=== PATIENT | male | born 1940 | race Caucasian/White ===

== ENCOUNTER 2019-07-27 11:01 | Outpatient (CLI) | payer OTHER, SELFPAY ==
--- NOTE | ~2019-07-27 | XR_ITS ---
XR lumbar spine 2-3V DATE: 07/27/2019 11:29 INDICATION: Low back pain radiating to both hips TECHNIQUE: AP, lateral and coned lateral lumbosacral views COMPARISON: None FINDINGS: There is mild levoscoliosis of the lumbar spine. Moderate osteopenia. There is degenerative change at the apophyseal joints particularly at L4-5 with associated minimal gr jenna 1 anterolisthesis at L4-5. 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 There is moderate degenerative disc disease of the lumbar spine, greatest at L1-L2. The sacroiliac joints are unremarkable. Prominent abdominal aortic calcification, without apparent aneurysm. IMPRESSION: Status post anterior and interbody spinal fusion at L5-S1 Degenerative change at the apophyseal joints and associated grade 1 anterolisthesis at L4-5 Multilevel moderate degenerative disc disease, greatest at L1-2 Reviewed, dictated and finalized at location A. IMPRESSION: Status post anterior and interbody spinal fusion at L5-S1 Degenerative change at the apophyseal joints and associated grade 1 anterolisth esis at L4-5 Multilevel moderate degenerative disc disease, greatest at L1-2
--- NOTE | ~2019-07-27 | XR_ITS ---
XR chest 2V DATE: 07/27/2019 11:28 INDICATION: Cough for one month TECHNIQUE: PA and lateral views COMPARISON: 09/02/2017 two-view chest FINDINGS: Normal heart size. Aortic calcification. No hilar or mediastinal enlargement. No pulmonary infiltrate or consolidation, pleural effusion or pulmonary vascular congestion or pneumo thorax. 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 IMPRESSION: No active cardiopulmonary disease or significant change since 09/02/2017 Reviewed, dictated and finalized at location A. IMPRESSION: No active cardiopulmonary disease or significant change since 2017
== END 2019-07-27 11:02 | disposition home or self-care (01) ==
PROVIDERS: PCP Internal Medicine; Visit Provider Internal Medicine
DX: J40 Bronchitis, not specified as acute or chronic (principal); M51.36 Other intervertebral disc degeneration, lumbar region; Z98.1 Arthrodesis status
CPT/HCPCS: 71046; 72100

== ENCOUNTER 2019-12-24 02:02 | Outpatient (CLI) | payer OTHER, SELFPAY ==
[2019-12-24 18:20] LABS: SARS-CoV-2 RNA PCR Negative
== END 2019-12-24 02:03 | disposition home or self-care (01) ==
LOC: ANHCOVIDDT 02:02
PROVIDERS: PCP Internal Medicine; Visit Provider Internal Medicine Gastroenterology
DX: Z01.812 Encounter for preprocedural laboratory examination (principal); Z11.59 Encounter for screening for other viral diseases
CPT/HCPCS: 87635; C9803; U0003

== ENCOUNTER 2019-12-26 02:21 | Day surgery (SDC) | payer OTHER, SELFPAY ==
[2019-12-19 12:43] VITALS: BMI 34.4
[2019-12-26 10:17] VITALS: BP 174/80; PULSE 103; RESP 18; TEMP 35.8; O2SAT 97; BMI 33.8
--- NOTE | 2019-12-26 10:23 | P.PNAN_ITS ---
Anes - Initial Pre Proc Eval Procedure: Operation Date: 12/26/19 10:45 Proposed Procedures p Screening Colonoscopy - Shady Dee MD Date/Time: 12/26/19 10:23 Surgeon: Shady Dee MD Pre Op Diagnosis: neoplasm screening Patient Data Age: 79 Gender: M Height: 5 ft 11 in Weight: 110.1 kg Last Vital Signs Temp 96.5 F L 12/26/19 10:17 Pulse 103 H 12/26/19 10:17 Resp 18 12/26/19 10:17 BP 174/80 H 12/26/19 10:17 Pulse Ox 97 12/26/19 10:17 Allergies Allergy/AdvReac Type Severity Reaction Status Date / Time No Known Allergies Allergy Verified 12/26/19 10:14 Home Medications Medication Instructions Recorded Confirmed Type metformin 1,000 mg tablet 1,000 mg PO BID #180 tablet 07/27/19 12/19/19 Rx finasteride 5 mg tablet 5 mg PO DAILY #90 tablet 09/27/19 12/20/19 Rx hydralazine 25 mg tablet 25 mg PO BID #180 tablet 09/27/19 12/20/19 Rx spironolactone 25 mg tablet See Rx Instructions .ROUTE 09/27/19 12/20/19 Rx .COMPLEX #90 tablet tamsulosin 0.4 mg capsule 0.4 mg PO DAILY #90 cap 09/27/19 12/20/19 Rx furosemide 40 mg tablet 40 mg PO BID #180 tablet 10/09/19 12/20/19 Rx losartan 100 mg tablet 100 mg PO DAILY #90 tablet 10/09/19 12/20/19 Rx pravastatin 40 mg tablet 40 mg PO DAILY #90 tablet 10/09/19 12/20/19 Rx albuterol sulfate 90 mcg/actuation 2 puff INHALATION Q4H PRN #8.5 gm 11/27/19 12/19/19 Rx aerosol inhaler fluticasone 250 mcg-salmeterol 50 1 inhalation INHALATION BID each 11/27/19 12/20/19 History mcg/dose blistr powdr for inhalation omega-3 fatty acids 1,000 mg 1,000 mg PO BID 11/27/19 12/20/19 History capsule aspirin [Aspir-81] 81 mg PO DAILY 12/19/19 12/19/19 History Patient hx anesthesia problems: none Family hx anesthesia problems: none [facility] Past Medical History Medical History (Updated 12/26/19 @ 10:20 by Rex Gao MD) Chronic obstructive pulmonary disease, unspecified Mixed hyperlipidemia ANEUDY (obstructive sleep apnea) Screening for colon cancer Type 2 diabetes mellitus with diabetic polyneuropathy Social History Social History Smoking status: Former smoker Smoking end date: 08/30/84 Alcohol intake: never Anes - Eval Final PreProcedure Day of Procedure 12/26/19 10:23 Patient weight: obese Heart: regular rate and rhythm Lungs: clear to auscultation Airway: Mallampati scale class II Neurological: alert and oriented Last oral intake: >/= 8 hours ASA classification: III Emergent: no Anesthetic plan: proceed Anesthesia type and monitoring: general GIVS and standard monitoring Informed Consent: The patient's anesthetic plan and its attendant risks and benefits were discussed with the patient/family/POA. Questions were solicited and answers provided to the satisfaction of the patient/family/POA.
[2019-12-26 10:31] LABS: Glucose Point of Care 129 (65-105)
[2019-12-26] MEDS: LACTATED RINGERS 1,000 ML 150 ML IV CONT (10:32)
--- NOTE | 2019-12-26 10:52 | PM.HPGS ---
History of Present Illness History of Present Illness Consent: Risks, benefits, and alternatives have been discussed and questions answered. Patient agrees to proceed with procedure. Chief complaint: neoplasm screening Narrative: Christian Villa is a 79 year old male here for screening colonoscopy, last one more than 10 years ago. Review of Systems Constitutional: Constitutional: Denies headache(s) and Denies weakness Eyes: Eyes: Denies blurry vision ENT: Reports Normal hearing present, Denies headache(s) and Denies neck pain Cardiovascular: Cardiovascular: Denies chest pain and Denies dyspnea Respiratory: Respiratory: Denies dyspnea Gastrointestinal: Gastrointestinal: Reports no additional gastrointestinal complaints Genitourinary: Genitourinary: Denies dysuria Musculoskeletal: Musculoskeletal: Denies neck pain Integumentary/Breasts: Skin/Breast: Denies dry skin Neurologic: Reports Normal hearing present, Denies headache(s) and Denies weakness Psychiatric: Psychiatric: Denies anxiety Endocrine: Endocrine: Denies change in body appearance Hematologic/Lymphatic: Hematologic/Lymphatic: Denies easy bleeding Allergic/Immunologic: Allergic/Immunologic: Denies urticaria PMFSH Past Medical History Medical History (Updated 12/26/19 @ 10:20 by Rex Gao MD) Chronic obstructive pulmonary disease, unspecified Mixed hyperlipidemia ANEUDY (obstructive sleep apnea) Screening for colon cancer Type 2 diabetes mellitus with diabetic polyneuropathy Social History Social History Smoking status: Former smoker Smoking end date: 08/30/84 Alcohol intake: never Meds Home Medications and Allergies Home Medications Medication Instructions Recorded Confirmed Type metformin 1,000 mg tablet 1,000 mg PO BID #180 tablet 07/27/19 12/19/19 Rx finasteride 5 mg tablet 5 mg PO DAILY #90 tablet 09/27/19 12/20/19 Rx hydralazine 25 mg tablet 25 mg PO BID #180 tablet 09/27/19 12/20/19 Rx spironolactone 25 mg tablet See Rx Instructions .ROUTE 09/27/19 12/20/19 Rx .COMPLEX #90 tablet tamsulosin 0.4 mg capsule 0.4 mg PO DAILY #90 cap 09/27/19 12/20/19 Rx furosemide 40 mg tablet 40 mg PO BID #180 tablet 10/09/19 12/20/19 Rx losartan 100 mg tablet 100 mg PO DAILY #90 tablet 10/09/19 12/20/19 Rx pravastatin 40 mg tablet 40 mg PO DAILY #90 tablet 10/09/19 12/20/19 Rx albuterol sulfate 90 mcg/actuation 2 puff INHALATION Q4H PRN #8.5 gm 11/27/19 12/19/19 Rx aerosol inhaler fluticasone 250 mcg-salmeterol 50 1 inhalation INHALATION BID each 11/27/19 12/20/19 History mcg/dose blistr powdr for inhalation omega-3 fatty acids 1,000 mg 1,000 mg PO BID 11/27/19 12/20/19 History capsule aspirin [Aspir-81] 81 mg PO DAILY 12/19/19 12/19/19 History Allergies Allergy/AdvReac Type Severity Reaction Status Date / Time No Known Allergies Allergy Verified 12/26/19 10:14 Vital Signs Vital Signs - 24 hr 12/26/19 10:17 Temperature 96.5 F L Pulse Rate 103 H Respiratory Rate 18 Blood Pressure 174/80 H Pulse Oximetry 97 Exam Const: General: comfortable and no acute distress HENMT: General nose exam: Normal nares present Eyes: General: appearance normal, both eyes and all related structures Neck: Neck: no JVD Resp: Auscultation: clear to auscultation bilaterally Cardio: Rate: regular rate Rhythm: regular rhythm GI: Inspection: non-distended GI Palp: Yes Soft to palpation Skin: General skin exam: normal color Neuro: General: gait normal Speech: normal speech Extrem: General: normal to inspection Psych: Mental Status: mental status grossly normal Assessment and Plan Assessment and plan (1) Screening for colon cancer: Code(s): Z12.11 - Encounter for screening for malignant neoplasm of colon Status: Acute Assessment and Plan: will proceed with colonoscopy (2) Essential hypertension: Code(s): I10 - Essenti
[2019-12-26 11:46] VITALS: BP 94/55; PULSE 75; RESP 20; O2SAT 97
[2019-12-26 11:56] VITALS: BP 106/53; PULSE 72; RESP 22; O2SAT 96
[2019-12-26 12:06] VITALS: BP 119/68; PULSE 68; RESP 18; O2SAT 99
[2019-12-26 12:09] LABS: Glucose Point of Care 128 (65-105)
== END 2019-12-26 12:21 | disposition home or self-care (01) ==
PROVIDERS: PCP Internal Medicine; Visit Provider Internal Medicine Gastroenterology
PROC: 0DJD8ZZ Inspection of Lower Intestinal Tract, Via Natural or Artificial Opening Endoscopic (ICD-10-PCS; CPT 45378; principal; 2019-12-26 10:45)
DX: Z12.11 Encounter for screening for malignant neoplasm of colon (principal); K57.30 Diverticulosis of large intestine without perforation or abscess without bleeding; K64.8 Other hemorrhoids; E11.42 Type 2 diabetes mellitus with diabetic polyneuropathy; J44.9 Chronic obstructive pulmonary disease, unspecified; I10 Essential (primary) hypertension; E78.2 Mixed hyperlipidemia; G47.33 Obstructive sleep apnea (adult) (pediatric); Z87.891 Personal history of nicotine dependence; Z79.84 Long term (current) use of oral hypoglycemic drugs; Z79.82 Long term (current) use of aspirin
CPT/HCPCS: G0121; J2704; J7120

== ENCOUNTER 2020-03-03 16:43 | Emergency (ER) | payer OTHER, SELFPAY ==
--- NOTE | ~2020-03-03 | XR_ITS ---
EXAMINATION: XR chest 2V EXAM DATE: 03/03/2020 16:59 INDICATION: COUGH;afebrile, hx of COPD, HTN, prev smoker TECHNIQUE: Frontal and lateral projections of the chest obtained and reviewed. 07/27/2019. FINDINGS: Small amount of left basilar linear opacity most likely subsegmental atelectasis. The lung s are otherwise clear. There are no pleural effusions. The cardiomediastinal silhouette is within n ormal limits. There is no pneumothorax suspected. The bones and soft tissues are unremarkable. IMPRESSION: Left basilar subsegmental opacity probably atelectasis. Reviewed, dictated and finalized at location A.
--- NOTE | 2020-03-03 16:47 | ED.URI ---
HPI - URI/Sore Throat General Chief Complaint: Shortness of Breath/Dyspnea Stated Complaint: difficulty breathing Time Seen by Provider: 03/03/20 16:47 Source: patient and RN notes reviewed History of Present Illness HPI Narrative: Patient is a 79-year-old male who presents the urgent care with complaints of 2-day history of nonproductive cough and shortness of breath. Patient does report a history of COPD but denies of any recent history of pneumonia. 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 Patient states that he has been needing the inhaler more frequently. Denies any use of nebulizers or at home oxygen. Denies of any fever, nausea, vomiting, chest pain. Patient states he is used a home remedy concoction for the cough which seems to help . Otherwise, no other use of [id number] medication. No other acute complaints. No acute distress noted. Patient aware of the plan of care. Some parts of this dictation were generated by voice recognition software and may contain typographical and/or grammatical inaccuracies. Related Data Home Medications Medication Instructions Recorded Confirmed fluticasone 250 mcg-salmeterol 50 1 inhalation INHALATION BID each 11/27/19 12/20/19 mcg/dose blistr powdr for inhalation omega-3 fatty acids 1,000 mg 1,000 mg PO BID 11/27/19 12/20/19 capsule aspirin [Aspir-81] 81 mg PO DAILY 12/19/19 12/19/19 Allergies Allergy/AdvReac Type Severity Reaction Status Date / Time No Known Allergies Allergy Verified 12/26/19 10:14 Review of Systems Review of Systems: Narrative: CONSTITUTIONAL: Denies fever, chills, or sweats. EYES: Denies visual changes, redness, or discharge. ENT: Denies rhinorrhea, congestion, sore throat, or otalgia. CARDIOVASCULAR: Denies chest pain, palpitations, or edema. RESPIRATORY: Reports of nonproductive cough with dyspnea GASTROINTESTINAL: Denies abdominal pain, nausea, vomiting, or diarrhea. GENITOURINARY: Denies dysuria or hematuria. SKIN: Denies rash or itching. MUSCULOSKELETAL: Denies back pain, joint pain, or myalgia. NEUROLOGIC: Denies headache, numbness, or weakness. All other systems reviewed are negative, except as documented in HPI. [facility] Past Medical History Medical History (Updated 10/19/20 @ 17:10 by DYLAN Ballard) Chronic obstructive pulmonary disease, unspecified Mixed hyperlipidemia ANEUDY (obstructive sleep apnea) Screening for colon cancer Type 2 diabetes mellitus with diabetic polyneuropathy Family History Family History Sibling Patient's sister is in good health Patient's brother is in good health Father Family history of heart disease in male family member before age 55 Mother Family history of heart disease in male family member before age 55 Acute myocardial infarction Social History Social History Smoking status: Former smoker Smoking end date: 08/30/84 Alcohol intake: never Comments At the time of my signature, I reviewed and agree with the nursing past medical, surgical, social, and family history. There is no relevant family history pertinent to the patient complaint. Exam Narrative: Exam Narrative: GENERAL: This is a well-nourished, well-developed patient, in no apparent distress. HEAD: normocephalic, atraumatic. EYES: PERRL. Sclera clear/white. Vision is grossly intact. Bilateral surrounding irritation and erythema with clear drainage EARS: External ears normal, auditory canals clear and without drainage, TMs normal without perforation. Hearing grossly intact. NOSE: External nose normal with no obvious nasal discharge, bilateral erythemic nares with clear rhinorrhea. THROAT: Mucous membranes moist, posterior pharynx clear. NECK: Neck supple CARDIOVASCULAR: Regular rate and rhythm RESPIRATORY: Coarse lung sounds bibasilar with expiratory wheezes to lower r
[2020-03-03 16:48] VITALS: BP 178/83; PULSE 111; RESP 18; TEMP 37; O2SAT 94
[2020-03-03 16:56] VITALS: PULSE 111; RESP 18; O2SAT 94
== END 2020-03-03 17:23 | disposition home or self-care (01) ==
PROVIDERS: Emergency Provider Nurse Practitioner Family; PCP Internal Medicine
DX: R91.8 Other nonspecific abnormal finding of lung field (principal); J44.9 Chronic obstructive pulmonary disease, unspecified; Z87.891 Personal history of nicotine dependence; E78.2 Mixed hyperlipidemia; G47.33 Obstructive sleep apnea (adult) (pediatric); E11.42 Type 2 diabetes mellitus with diabetic polyneuropathy; Z79.82 Long term (current) use of aspirin
CPT/HCPCS: 71046; 99213; G0463

== ENCOUNTER 2020-05-07 08:01 | Emergency (ER) | payer OTHER, SELFPAY ==
[2020-05-07 08:09] VITALS: BP 155/88; PULSE 101; RESP 20; TEMP 36.3; O2SAT 98
--- NOTE | 2020-05-07 08:22 | ED.SKABFB ---
HPI - Skin/Abscess/Foreign Bdy General Chief complaint: Skin/Abscess/Foreign Body Stated complaint: RASH Time Seen by Provider: 05/07/20 08:12 Source: patient and RN notes reviewed Mode of arrival: ambulatory Limitations: no limitations History of Present Illness HPI narrative: Patient presents today complaining of pain to the left mid back radiating to the left flank and mid chest x1 week. Patient's noted a few days ago that there was a rash to the affected area. States pain continues to worsen. Currently rates pain 5/10. Patient takes Tylenol arthritis twice daily and states that this pain is not being relieved with his normal pain medication. He has not had a shingles vaccine. Denies numbness or tingling in the extremities. States sleeping on his left side aggravates the pain. MD complaint: rash Related Data Home Medications Medication Instructions Recorded Confirmed aspirin [Aspir-81] 81 mg PO DAILY 12/19/19 05/07/20 fluticasone propion-salmeterol 1 inh INHALATION BID 05/07/20 05/07/20 [Wixela Inhub] metformin 500 mg PO BID 05/07/20 05/07/20 spironolactone 12.5 mg PO DAILY 05/07/20 05/07/20 Allergies Allergy/AdvReac Type Severity Reaction Status Date / Time No Known Allergies Allergy Verified 05/07/20 08:14 Review of Systems Review of Systems: Narrative: CONSTITUTIONAL: Denies body aches, fever, chills, or sweats. EYES: Denies visual changes, redness, or discharge. ENT: Denies rhinorrhea, congestion, sore throat, or otalgia. CARDIOVASCULAR: Denies chest pain, palpitations, or edema. RESPIRATORY: Denies cough or dyspnea. GASTROINTESTINAL: Denies abdominal pain, nausea, vomiting, or diarrhea. GENITOURINARY: Denies dysuria or hematuria. SKIN: Denies itching, or wounds. + Left mid back pain and rash MUSCULOSKELETAL: Denies back pain, joint pain, or myalgia. NEUROLOGIC: Denies headache, numbness, tingling, or weakness. PSYCH: Denies depression or anxiety. [facility] Past Medical History Medical History Chronic obstructive pulmonary disease, unspecified Mixed hyperlipidemia ANEUDY (obstructive sleep apnea) Screening for colon cancer Type 2 diabetes mellitus with diabetic polyneuropathy Family History Family History Sibling Patient's sister is in good health Patient's brother is in good health Father Family history of heart disease in male family member before age 55 Mother Family history of heart disease in male family member before age 55 Acute myocardial infarction Social History Social History Smoking status: Former smoker Smoking end date: 08/30/84 Alcohol intake: never Comments At time of signature, I have reviewed and agree with nursing past medical, surgical, social and family history unless otherwise noted. Please see nursing chart for further information. There is no relevant family history pertinent to the presenting complaint Exam Narrative: Exam Narrative: GENERAL: Well-appearing, well-nourished, and in no acute distress. HEAD: Normocephalic, atraumatic. EYES: EOMI. No redness or drainage. Conjunctivae normal. ENT: Mucous membranes pink and moist. NECK: Normal AROM. CHEST: No respiratory distress. EXTREMITIES: Normal range of motion. No edema. SKIN: Warm, dry. Capillary refill normal. Normal skin turgor. Erythematous vesicular rash starting in the left upper thoracic area following a dermatomal pattern around the left flank, ending in the left sternal border. Tender to palpation. Few ruptured vesicles to the left sternal border. No signs of secondary bacterial infection. NEURO: No focal deficits. Alert and oriented x3. Gait steady. PSYCH: Normal affect. No signs of depression or anxiety. Course Vital Signs Vital signs: Vital Signs Temperature 97.4 F L 05/07/20 08:09 Pulse Rate 101 H
== END 2020-05-07 08:30 | disposition home or self-care (01) ==
PROVIDERS: Emergency Provider Nurse Practitioner; PCP Internal Medicine
DX: B02.9 Zoster without complications (principal); J44.9 Chronic obstructive pulmonary disease, unspecified; G47.33 Obstructive sleep apnea (adult) (pediatric); E78.2 Mixed hyperlipidemia; E11.42 Type 2 diabetes mellitus with diabetic polyneuropathy; Z87.891 Personal history of nicotine dependence; Z79.84 Long term (current) use of oral hypoglycemic drugs; Z79.82 Long term (current) use of aspirin
CPT/HCPCS: 99213; G0463

== ENCOUNTER 2020-05-29 08:48 | Outpatient (CLI) | payer OTHER, SELFPAY ==
--- NOTE | ~2020-05-29 | XR_ITS ---
EXAMINATION: XR chest 2V DATE: 05/29/2020 09:14 INDICATION: Cough TECHNIQUE: PA and lateral views of the chest are obtained. COMPARISON: 03/03/2020 FINDINGS: The lungs are free of acute opacities. There is no pleural effusion or pneumothorax. The ca rdiomediastinal silhouette is normal. There are bridging osteophytes at multiple levels in the spine, consistent with diffuse idiopathic skeletal hyperostosis (DISH). Thoracolumbar levocurvature is note d. IMPRESSION: 1. No acute cardiopulmonary abnormality. Reviewed, dictated and finalized at location A. PT READER
== END 2020-05-29 08:49 | disposition home or self-care (01) ==
PROVIDERS: PCP Internal Medicine; Visit Provider Nurse Practitioner
DX: R05 Cough (principal); J44.9 Chronic obstructive pulmonary disease, unspecified; I10 Essential (primary) hypertension
CPT/HCPCS: 71046

== ENCOUNTER 2020-06-05 11:45 | Outpatient (NON) | payer OTHER, SELFPAY ==
[2020-06-05 21:44] LABS: SARS-CoV-2 RNA PCR Positive
== END 2020-06-05 11:46 ==
LOC: ANHCOVIDDT 11:46
PROVIDERS: Family Provider Internal Medicine; PCP Internal Medicine; Visit Provider Internal Medicine
DX: U07.1 COVID-19 (principal)
CPT/HCPCS: C9803; U0003; U0005

== ENCOUNTER 2020-06-10 15:39 | Inpatient (IN) | payer OTHER, SELFPAY ==
[2020-06-10] VITALS (12 sets, daily range): BP systolic 119–165; BP diastolic 61–85; PULSE 74–93; RESP 18–28; TEMP 36.2–37.7; O2SAT 89–97; BMI 32.1
--- NOTE | ~2020-06-10 | XR_ITS ---
XR chest 1V portable DATE: 06/19/2020 05:36 INDICATION: Pneumonia TECHNIQUE: Portable AP chest on June 19, 2020 at 0518 hours COMPARISON: 06/13/2020 portable AP chest at 0745 hours FINDINGS: There are patchy bilateral pulmonary infiltrates involving the mid and lower lung zones funmilayo adam, greater on the left, consistent with bilateral pneumonia. There are small pleural effusions are suggested. No pulmonary vascular congestion or pneumothorax. Heart size appears normal. There is aortic calcification. Thoracic spine scoliosis and degenerative spurring. Diffuse osteopenia. IMPRESSION: Patchy bilateral pulmonary infiltrates consistent with diagnosis of pneumonia; infiltrate s are substantially increased since 06/13/2020 Reviewed, dictated and finalized at location A. SCALE MAN IMPRESSION: Patchy bilateral pulmonary infiltrates consistent with diagnosis of pneumonia; infiltrates are substantially increased since 06/13/2020
--- NOTE | ~2020-06-10 | XR_ITS ---
EXAMINATION: XR chest 1V DATE: 06/10/2020 16:44 INDICATION: COVID positive. COPD. Shortness of breath. TECHNIQUE: frontal view of the chest was obtained. COMPARISON: Chest radiograph dated 05/29/2020 FINDINGS: Interval increase in opacities in the left lower lung zone and along the right lung base. No pleural effusion or pneumothorax. Mild eventration along the right hemidiaphragm. The cardiomediastinal silho uette is normal. Mild lower thoracic dextrocurvature. IMPRESSION: 1. New opacities in the left lower lung zone and along the right lung base which could represent atel ectasis and/or pneumonia. Reviewed, dictated and finalized at location B. ENER IMPRESSION: 1. New opacities in the left lower lung zone and along the right lung base whic h could represent atelectasis and/or pneumonia.
--- NOTE | ~2020-06-10 | CT_ITS ---
EXAMINATION:CT diagnostic chest wo con DATE: 06/26/2020 09:01 INDICATION: COVID-19 pneumonia. Hypoxia. TECHNIQUE: Computed tomography (CT) of the chest was performed without intravenous contrast. Automate d exposure control and iterative reconstruction technique were employed. The dose-length product (DLP ) was 430.06 mGy-cm. COMPARISON: Chest single view 06/13/2020, 06/25/2020 FINDINGS: There are patchy airspace and groundglass opacities with air bronchograms involving all lob es. A calcified right lung nodule and calcified right hilar lymph nodes are consistent with old granu lomatous disease. There is septal thickening in the inferior lungs with a peripheral predominance. Th ere are small pleural effusions. The heart size is normal. There are coronary artery calcifications. No pericardial effusion. Calcifications in the spleen are consistent with old granulomatous disease. There is bilateral gynecomastia. There are bridging endplate osteophytes at multiple levels in the sp ine, consistent with diffuse idiopathic skeletal hyperostosis (DISH). IMPRESSION: 1. Multifocal pneumonia. 2. Septal thickening in the inferior lungs, consistent with mild pulmonary edema versus chronic inter stitial lung disease. 3. Small pleural effusions. Reviewed, dictated and finalized at location A. R COM SERVICER IMPRESSION: 1. Multifocal pneumonia. 2. Septal thickening in the inferior lungs, consistent with mild pulmonary katia a versus chronic interstitial lung disease. 3. Small pleural effusions.
--- NOTE | ~2020-06-10 | XR_ITS ---
EXAMINATION: XR chest 1V portable DATE: 06/21/2020 14:03 INDICATION: Acute respiratory failure. COVID-19 pneumonia. TECHNIQUE: A single frontal view of the chest was obtained. COMPARISON: Chest single view 06/19/20 FINDINGS: There are patchy airspace opacities in right mid and lower lung zones and all left lung zon es. No pleural effusion or pneumothorax. The heart size is normal. IMPRESSION: 1. Diffuse lung disease with slight worsening, consistent with pneumonia. Reviewed, dictated and finalized at location A. INE CUTTER
--- NOTE | ~2020-06-10 | XR_ITS ---
EXAMINATION: XR chest 1V portable EXAM DATE: 06/13/2020 08:02 INDICATION: Shortness of breath. COVID pneumonia. TECHNIQUE: Portable AP frontal chest x-ray was obtained. Comparison is made to prior examination from 06/10/2020. FINDINGS: There is moderate amount of left basilar, smaller amount of right basilar ill-defined airsp yarelis disease, pneumonia and/or edema. Mild hyperinflation. No pneumothorax or pleural effusion. The ca rdiomediastinal silhouette is prominent but magnified on this AP technique. Cardiac silhouette is sta ble in size compared to prior exam. There are bony degenerative changes. Mild interval progression in left basilar airspace disease compared to 06/10. IMPRESSION: Moderate left, smaller right basilar infection and/or edema. Reviewed, dictated and finalized at location A. NCIAL QUANTITATIVE ANALYST
--- NOTE | ~2020-06-10 | XR_ITS ---
EXAMINATION: XR chest 1V portable DATE: 06/25/2020 05:48 INDICATION: Shortness of breath. COVID-19 pneumonia. TECHNIQUE: A single frontal view of the chest was obtained. COMPARISON: Chest single view FINDINGS: There are patchy airspace opacities in all lung zones bilaterally with relative sparing of the lung apices. No pleural effusion or pneumothorax. The heart size is normal. IMPRESSION: 1. Worsened diffuse lung disease, consistent with COVID-19 pneumonia. Reviewed, dictated and finalized at location A. RETE CRAFTSMAN
--- NOTE | 2020-06-10 16:15 | ECG_ITS ---
Measurements Intervals [place] Rate: 92 P: 13 UT: 192 QRS: -46 QRSD: 97 T: 35 QT: 338 QTc: 419 Interpretive Statements SINUS RHYTHM LEFT ANTERIOR FASCICULAR BLOCK BASELINE ARTIFACT- I, III, AVR, AVL, AVF, V2 ABNORMAL ECG Electronically Signed On 06-10-2020 19:20:36 [employer]ENT FIN[employer] by Colby Noonan D.O.
[2020-06-10 16:40] LABS: Basophils Percent Auto 0.1 % (0.2-1.2); Eosinophils Percent Auto 0.1 % (0-4.4); Hematocrit 41.8 % (42.0-52.0); Hemoglobin 13.3 g/dL (14.0-18.0); Immature Granulocyte Absolute 0.08 K/mm3 (0.00-0.031); Immature Granulocyte Percent A 0.7 % (0-0.5); Lymphocytes Percent Auto 29.1 % (18.3-44.2); Mean Corpuscular HGB Conc 31.8 g/dl (32-36); Mean Corpuscular Hemoglobin 31.4 pg (26-34); Mean Corpuscular Volume 98.8 fl (80-100); Mean Platelet Volume 9.3 fl (7.4-10.4); Monocytes Absolute Auto 0.5 K/mm3 (0.1-0.6); Monocytes Percent Auto 4.8 % (2.6-8.5); Neutrophils Absolute Auto 7.4 K/mm3 (1.3-6.7); Neutrophils Percent Auto 65.2 % (45.5-73.1); Platelet Count Result 248 k/mm3 (150-375); Red Blood Count 4.23 M/mm3 (4.6-6.20); Red Cell Distribution Width 14.6 % (11.5-14.5); White Blood Count 11.3 K/mm3 (4.5-10.0)
--- NOTE | 2020-06-10 16:49 | ED.GENADULT ---
HPI - General Adult General Chief complaint: Shortness of Breath/Dyspnea Stated complaint: covid +, weakness Time Seen by Provider: 06/10/20 15:50 Source: patient Limitations: no limitations History of Present Illness HPI narrative: 79-year-old male History of COPD, does not use home O2, usually pretty well controlled on a twice daily inhaler plus as needed albuterol Complains of increased shortness of breath for about a week A couple days after his symptoms began he did test positive for Covid He reports today, 5 days after his positive test, complaining of continued shortness of breath, fatigue, severe muscle aches, and a stomachache. In general those of all gotten a little bit worse in the interim Related Data Home Medications Medication Instructions Recorded Confirmed aspirin [Aspir-81] 81 mg PO DAILY 12/19/19 05/29/20 metformin 500 mg PO BID 05/07/20 05/29/20 spironolactone 12.5 mg PO DAILY 05/07/20 05/29/20 omega-3 fatty acids 1,000 mg 1,000 mg PO BID 05/29/20 05/29/20 capsule Allergies Allergy/AdvReac Type Severity Reaction Status Date / Time No Known Allergies Allergy Verified 06/10/20 15:57 Review of Systems Review of Systems: All systems reviewed & are unremarkable except as noted in HPI and below Constitutional: Constitutional: Reports chills, Reports fatigue, Reports fever(s), Denies headache(s) and Reports weakness Eyes: Eyes: Reports no additional eye complaints and Denies change in vision ENT: Denies headache(s), Denies epistaxis, Denies nasal congestion and Denies sore throat Cardiovascular: Cardiovascular: Denies chest pain, Denies leg edema, Denies palpitations and Denies dyspnea Respiratory: Respiratory: Reports cough, Reports dyspnea and Reports wheezing Gastrointestinal: Gastrointestinal: Reports abdominal pain, Denies diarrhea, Reports nausea and Denies vomiting Genitourinary: Genitourinary: Denies hematuria, Denies dysuria and Denies urinary frequency Musculoskeletal: Musculoskeletal: Reports myalgias, Denies deformity, Reports arthralgias, Denies joint swelling, Denies muscle weakness and Denies numbness Integumentary/Breasts: Skin/Breast: Denies rash and Denies wounds Neurologic: Denies headache(s), Denies focal weakness, Denies numbness and Denies weakness Psychiatric: Psychiatric: Reports no additional psychiatric complaints Endocrine: Endocrine: Denies fatigue and Denies palpitations Hematologic/Lymphatic: Hematologic/Lymphatic: Denies easy bleeding and Denies easy bruising Allergic/Immunologic: Allergic/Immunologic: Denies wheezing PMFSH Past Medical History Medical History Chronic kidney disease, stage 3 Chronic obstructive pulmonary disease, unspecified Hyperlipidemia Mixed hyperlipidemia ANEUDY (obstructive sleep apnea) Screening for colon cancer Type 2 diabetes mellitus with diabetic polyneuropathy Surgical History Surgical History History of back surgery History of cataract surgery Family History Family History Sibling Patient's sister is in good health Patient's brother is in good health Father Family history of heart disease in male family member before age 55 Mother Family history of heart disease in male family member before age 55 Acute myocardial infarction Social History Social History Smoking status: Former smoker Smoking end date: 08/30/84 Alcohol intake: never Gender identity (if verbalized by the patient): Male Exam Const: General: no acute distress, well developed, alert and awake Nutritional Appearance: well nourished Orientation/consciousness: patient oriented x3 (alert) Limitations: no limitations HENMT: Head: normocephalic and atraumatic Ears: external ears normal General nose exam: No nasal
[2020-06-10 16:53] LABS: Anion Gap 9 mmol/L (8-16); Blood Urea Nitrogen 36 mg/dL (9-20); Calcium 8.6 mg/dL (8.4-10.2); Carbon Dioxide 23 mmol/L (22-30); Chloride 104 mmol/L (98-107); Estimated CRCL calculation 51 ml/min; Estimated Glomerular Filt Rate 53; Glucose 117 mg/dL (75-110); Potassium 4.9 mmol/L (3.4-5.0); Sodium 136 mmol/L (137-145)
[2020-06-10 16:54] LABS: Lactic Acid Reflex 1.2 mmol/L (0.7-2.1)
[2020-06-10 17:04] LABS: Alanine Aminotransferase 136 U/L (4-50); Albumin Level 3.6 g/dL (3.5-5.1); Alkaline Phosphatase 40 U/L (38-126); Aspartate Amino Transferase 100 U/L (17-59); Bilirubin,Total 0.4 mg/dL (0.2-1.3); CRP 7.1 mg/dL (<1.0); Lactate Dehydrogenase 704 U/L (313-618)
[2020-06-10] MEDS: ALBUTEROL SULFATE (*SP) AEROSOL 1 PUFF 6 PUFF INHALATION (17:07)
[2020-06-10] MEDS: ENOXAPARIN 100 MG/ML SYRINGE SUB-Q (17:11)
--- NOTE | 2020-06-10 17:11 | PC.NURSE ---
Meds given as ordered. RT at bedside for inhaler.
[2020-06-10 17:21] LABS: Alveolar/Arterial O2 Gradient 58.9 mmHg; Base Excess ABG -4.6 mEq/l (+/-2.0); Fractional Inspired Oxygen 21 %; HCO3 ABG 18.1 mEq/l (22.0-26.0); Oxygen Content ABG 16.7 %vol (16.0-22.0); Oxygen Saturation ABG 91.9 % (95.0-100.0); Oxyhemoglobin 89.9 % THb (90.0-100.0); PO2 ABG 58.5 mmHg (80.0-100.0); PO2 FiO2 Ratio Arterial Blood 2.79 %; Total Hemoglobin 13.2 g/dL (12.0-18.0); pH ABG 7.443 (7.350-7.450)
[2020-06-10 17:23] LABS: Device ROOM AIR; Modified Allen's Test Pass; Site Drawn RIGHT RADIAL
--- NOTE | 2020-06-10 17:51 | PC.NURSE ---
Per Anant in Lab, d-dimer will get it started
[2020-06-10 18:07] LABS: D Dimer 0.71 ug/mL (<0.48)
[2020-06-10] MEDS: ACETAMINOPHEN 500 MG TABLET 1000 MG PO (18:22)
[2020-06-10] MEDS: SODIUM CHLORIDE 0.9% IV 1,000 ML 50 ML IV CONT (18:58)
--- NOTE | 2020-06-10 18:58 | PC.NURSE ---
Note pt has increased wheezing that seems to clear with coughing. Pt appears to be swallowing but continues to say the cough is nonproductive. Appears to be feeling better but denies relief of generalized pain. Dr. Salguero made aware.
--- NOTE | 2020-06-10 19:30 | PC.NURSE ---
Report to FRANCOISE Caballero, to continue care.
--- NOTE | 2020-06-10 20:25 | ADMGEN ---
This patient, Christian Villa, was admitted to [facility] Room 325-01. Patient/family oriented to hospital policies and general routines including ID bracelet, bed and alarms, visiting hours, pain management, procedures, bathroom and other care routines, personal items, smoking policy, room service/diet, and visiting hours. Information on how to activate the Rapid Response Team has been discussed. Patient/Family are encouraged to report perceived risks to care and to ask questions if they do not understand what they are told or what they should do.
[2020-06-10] MEDS: DOXYCYCLINE HYCLATE 100 MG TABLET PO (20:49)
[2020-06-11 04:00] VITALS: BP 122/61; PULSE 65; RESP 18; TEMP 36.4; O2SAT 94
[2020-06-11] MEDS: ENOXAPARIN 100 MG/ML SYRINGE SUB-Q ×2 (05:23→18:07)
[2020-06-11 06:16] LABS: Basophils Percent Auto 0.1 % (0.2-1.2); Hematocrit 39.2 % (42.0-52.0); Hemoglobin 12.5 g/dL (14.0-18.0); Immature Granulocyte Absolute 0.06 K/mm3 (0.00-0.031); Immature Granulocyte Percent A 0.8 % (0-0.5); Lymphocytes Percent Auto 23.3 % (18.3-44.2); Mean Corpuscular HGB Conc 31.9 g/dl (32-36); Mean Corpuscular Volume 97.3 fl (80-100); Mean Platelet Volume 9.2 fl (7.4-10.4); Monocytes Absolute Auto 0.3 K/mm3 (0.1-0.6); Monocytes Percent Auto 3.8 % (2.6-8.5); Neutrophils Absolute Auto 5.6 K/mm3 (1.3-6.7); Platelet Count Result 254 k/mm3 (150-375); Red Blood Count 4.03 M/mm3 (4.6-6.20); Red Cell Distribution Width 14.4 % (11.5-14.5); White Blood Count 7.7 K/mm3 (4.5-10.0)
[2020-06-11 08:00] VITALS: BP 123/58; PULSE 75; RESP 18; TEMP 36.5; O2SAT 93; O2SAT 94
--- NOTE | 2020-06-11 08:14 | PM.IMHP ---
H&P: HPI History of Present Illness Date/Time: 06/11/20 02:30 Chief Complaint: Worsening COVID symptoms Narrative: Christian Villa is a 79 year old male with a past medical history of obstructive sleep apnea (not on CPAP), asthma, BPH, CHF, diabetes, chronic kidney disease stage III and recent diagnosis of COVID-19 06/05/2020 who presented to the ER with increased shortness of breath. The patient reported that he began having symptoms of COVID about 7 days ago. Both he and his tested positive for COVID but his is getting better. He did not know where they at COVID from as the patient has been staying at home and maintaining distance between others. He began having nasal congestion, mild headache, nausea, decreased appetite, fatigue and low-grade fevers. He has had deep cough that is largely nonproductive. He denies any chest pain, orthopnea or lower extremity swelling. He has had myalgias and generalized abdominal pain. He denies any pleuritic chest pain. His symptoms have progressively gotten worse since diagnosis. In the ER the patient had hypoxemia noted on ABG and shortly thereafter developed hypoxia on room air satting 89%. He was subsequently placed on 2 L nasal cannula with improvement in O2 sat. Review of Systems Review of Systems: Narrative: 12 systems were reviewed with pertinent positives and negatives per HPI. Except as documented in the HPI, all other systems were reviewed and are negative. [facility] Past Medical History Medical History (Updated 06/11/20 @ 08:45 by Maryuri Srivastava DO) BPH (benign prostatic hyperplasia) Chronic kidney disease, stage 3 Chronic obstructive pulmonary disease, unspecified Essential hypertension Hyperlipidemia Mixed hyperlipidemia ANEUDY (obstructive sleep apnea) Not on CPAP Type 2 diabetes mellitus with diabetic polyneuropathy Surgical History Surgical History (Updated 06/11/20 @ 08:34 by Maryuri Srivastava DO) History of back surgery Lumbar fusion History of cataract surgery Family History Family History (Updated 06/11/20 @ 08:35 by Maryuri Srivastava DO) Sibling Patient's sister is in good health Patient's brother is in good health Father Heart disease Acute myocardial infarction Mother Acute myocardial infarction Social History Social History (Updated 06/11/20 @ 08:44 by Maryuri Srivastava DO) Social History: He lives in [place] with his of 59 years. 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 He quit smoking over 40 years ago. He only had a 15 pack per year smoking history. He denies any alcohol or illicit substance use. Code status: Full code Smoking packs per day: 1 Smoking cigarettes per day: 20.0 Years smoked: 15 Smoking pack-years: 15.00 Smoking status: Former smoker Tobacco type: cigarettes Smoking end date: 08/30/84 Alcohol intake: never Substance use: never Gender identity (if verbalized by the patient): Male Sexual Orientation (if Verbalized by the Patient): Straight or Heterosexual Spiritual care concerns: No Meds Home Medications and Allergies Home Medications Medication Instructions Recorded Confirmed Type albuterol sulfate 90 mcg/actuation 2 puff INHALATION Q4H PRN #8.5 gm 11/27/19 06/10/20 Rx aerosol inhaler aspirin [Adult Low Dose Aspirin] 81 mg PO DAILY 12/19/19 06/10/20 History lancets #100 each 01/30/20 06/10/20 Rx blood sugar diagnostic #100 ea 03/19/20 06/10/20 Rx finasteride 5 mg tablet 5 mg PO DAILY #90 tablet 04/04/20 06/10/20 Rx furosemide 40 mg tablet 40 mg PO BID #180 tablet 04/04/20 06/10/20 Rx hydralazine 25 mg tablet 25 mg PO BID #180 tablet 04/04/20 06/10/20 Rx losartan 100 mg tablet 100 mg PO DAILY #90 tablet 04/04/20 06/10/20 Rx pravastatin 40 mg tablet 40 mg PO DAILY #90 tablet 04/04/20 06/10/20 Rx tamsulosin 0.4 mg capsule 0.4 mg PO DAILY #90 cap 04/04/20 06/10/20 Rx metformin 500 mg PO BID
[2020-06-11] MEDS: DOXYCYCLINE HYCLATE 100 MG TABLET PO ×2 (09:19→20:00)
[2020-06-11] MEDS: ASPIRIN 81 MG ENTERIC TABLET PO (09:19)
[2020-06-11] MEDS: PRAVASTATIN SODIUM 20 MG TABLET 40 MG PO (09:19)
[2020-06-11] MEDS: LOSARTAN POTASSIUM 100 MG TABLET PO (09:19)
[2020-06-11] MEDS: TAMSULOSIN HCL 0.4 MG CAPSULE PO (09:19)
[2020-06-11] MEDS: hydrALAZINE HCL 25 MG TABLET PO ×2 (09:19→18:08)
[2020-06-11] MEDS: OMEGA 3 POLYUNSAT FATTY ACIDS 1 GM CAP PO ×2 (09:19→18:08)
[2020-06-11] MEDS: FINASTERIDE 5 MG TABLET PO (09:19)
[2020-06-11] MEDS: FUROSEMIDE 40 MG TABLET PO ×2 (09:20→18:08)
[2020-06-11] MEDS: DEXAMETHASONE SOD PHOS INJ 4 MG/ML VIAL 6 MG IV PUSH (09:20)
[2020-06-11] MEDS: SPIRONOLACTONE 12.5 MG TABLET PO (09:20)
[2020-06-11] MEDS: ACETAMINOPHEN 325 MG TABLET 650 MG PO (09:31)
[2020-06-11] MEDS: FLUTICASONE/SALMETEROL 115-21 MCG (*SP) INHALER 2 PUFF INHALATION ×2 (10:04→19:50)
[2020-06-11 10:11] VITALS: O2SAT 93
[2020-06-11 12:00] VITALS: BP 130/62; PULSE 81; RESP 18; TEMP 36.4; O2SAT 94
[2020-06-11] MEDS: ONDANSETRON INJ 4 MG/2 ML VIAL IV PUSH (14:32)
--- NOTE | 2020-06-11 15:07 | PM.IMPN ---
Progress Note: A&P Assessment and Plan (1) Pneumonia due to COVID-19 virus: Code(s): U07.1 - COVID-19; J12.82 - Pneumonia due to coronavirus disease 2019 Status: Acute Assessment and Plan: Continue steroids and iV abx (2) Respiratory failure with hypoxia: Qualifiers: Chronicity: acute Qualified Code(s): J96.01 - Acute respiratory failure with hypoxia Code(s): J96.91 - Respiratory failure, unspecified with hypoxia Status: Acute Assessment and Plan: Continue 2 liters of oxygen (3) Herpes zoster dermatitis: Code(s): B02.8 - Zoster with other complications; L30.8 - Other specified dermatitis Status: Acute Assessment and Plan: Pt is on steroids I will consult ID for further help. Subjective Date/time seen: 06/11/20 15:07 Interval history: 9 year old male with a past medical history of obstructive sleep apnea (not on CPAP), asthma, BPH, CHF, diabetes, chronic kidney disease stage III and recent diagnosis of COVID-19 06/05/2020 who presented to the ER with increased shortness of breath. Weak nauseated tired. pt is on 2 liters of oxygen. steroids and iv abx. Pt has outbreak of shingles Apr almost a month. Pt was on valtrex. Pt is on vicks vapor rub. Review of Systems Review of Systems: All systems reviewed & are unremarkable except as noted in HPI and below Exam Const: General: cooperative and healthy appearing; No in distress Nutritional Appearance: overweight Orientation/consciousness: oriented to person HENMT: Head: normal to inspection Resp: Effort & Inspection: no respiratory distress Auscultation: no rhonchi and no wheezes Skin: Rashes: other (shingles on his left side ) Objective Data Vital Signs Vital Signs: Vital Signs - 24 hr 06/10/20 15:47 06/10/20 15:51 06/10/20 16:01 Temperature 37.7 C H Pulse Rate 92 92 90 Respiratory Rate 28 H 27 H 25 H Blood Pressure 165/85 H 165/85 H 160/83 H Pulse Oximetry 89 L 97 97 06/10/20 16:16 06/10/20 17:31 06/10/20 18:01 Temperature Pulse Rate 85 93 91 Respiratory Rate 22 H 24 H 24 H Blood Pressure 143/69 H 152/61 H 134/62 Pulse Oximetry 94 91 94 06/10/20 18:16 06/10/20 18:46 06/10/20 19:55 Temperature Pulse Rate 93 92 85 Respiratory Rate 23 H 22 H 18 Blood Pressure 146/63 H 135/65 132/65 Pulse Oximetry 91 96 95 06/10/20 20:25 06/10/20 21:00 06/10/20 23:56 Temperature 36.4 C L 36.2 C L Pulse Rate 85 74 Respiratory Rate 20 20 Blood Pressure 143/65 H 119/64 Pulse Oximetry 94 94 96 06/11/20 04:00 06/11/20 08:00 06/11/20 10:11 Temperature 36.4 C L 36.5 C Pulse Rate 65 75 Respiratory Rate 18 18 Blood Pressure 122/61 123/58 L Pulse Oximetry 94 93 93 06/11/20 12:00 Temperature 36.4 C L Pulse Rate 81 Respiratory Rate 18 Blood Pressure 130/62 Pulse Oximetry 94 Intake/Output Intake/Output: Intake & Output 06/08/20 06/09/20 06/10/20 06/11/20 23:59 23:59 23:59 23:59 Intake Total 50 460 Balance 50 460 Meds/Results Medications: Active Medications Generic Name Dose Route Start Last Admin Trade Name Freq PRN Reason Stop Dose Admin Acetaminophen 650 mg 06/10/20 18:32 06/11/20 09:31 Acetaminophen 325 Mg Tablet PO 650 mg Q4H PRN Administration Mild Pain (1-3) or Fever Albuterol 4 puff 06/10/20 18:32 Albuterol Sulfate (*Sp) Aerosol 1 Puff INHALATION Q4HRT PRN Shortness Of Breath Aspirin 81 mg 06/11/20 09:00 06/11/20 09:19 Aspirin 81 Mg Enteric Tablet PO 81 mg DAILY MELISSA Administration Dexamethasone Sodium Phosphate 6 mg 06/11/20 09:00 06/11/20 09:20 Dexamethasone Sod Phos Inj 4 Mg/Ml Vial IV PUSH 06/20/20 09:01 6 mg DAILY MELISSA Administration Doxycycline Hyclate 100 mg 06/10/20 21:00 06/11/20 09:19 Doxycycline Hyclate 100 Mg Tablet PO 100 mg Q12HR MELISSA Administration Enoxaparin Sodium 100 mg 06/11/20 06:00 06/11/20 05:23 Enoxaparin 100 Mg/Ml Syringe SUB-Q 1
[2020-06-11 16:00] VITALS: BP 122/61; PULSE 77; RESP 18; TEMP 37; O2SAT 93
[2020-06-11] MEDS: MENTHOL 10% / METHYL SALICYLATE 15% 57 GM TUBE 1 APPLIC TOPICAL (16:00)
[2020-06-11 20:00] VITALS: BP 168/54; PULSE 103; RESP 20; TEMP 36.2; O2SAT 92; O2SAT 94
[2020-06-12] VITALS: BP 126/62; PULSE 88; RESP 18; TEMP 36.7; O2SAT 93
[2020-06-12 04:00] VITALS: BP 129/71; PULSE 75; RESP 20; TEMP 36.3; O2SAT 95
[2020-06-12] MEDS: ENOXAPARIN 100 MG/ML SYRINGE SUB-Q ×2 (05:06→15:47)
[2020-06-12 08:00] VITALS: BP 137/69; PULSE 83; RESP 20; TEMP 37.1; O2SAT 92; O2SAT 94
[2020-06-12] MEDS: FLUTICASONE/SALMETEROL 115-21 MCG (*SP) INHALER 2 PUFF INHALATION ×2 (08:29→19:43)
[2020-06-12] MEDS: hydrALAZINE HCL 25 MG TABLET PO ×2 (08:29→15:46)
[2020-06-12] MEDS: ASPIRIN 81 MG ENTERIC TABLET PO (08:29)
[2020-06-12] MEDS: DEXAMETHASONE SOD PHOS INJ 4 MG/ML VIAL 6 MG IV PUSH (08:33)
[2020-06-12] MEDS: DOXYCYCLINE HYCLATE 100 MG TABLET PO ×2 (08:34→20:10)
[2020-06-12] MEDS: FINASTERIDE 5 MG TABLET PO (08:34)
[2020-06-12] MEDS: OMEGA 3 POLYUNSAT FATTY ACIDS 1 GM CAP PO ×2 (08:35→15:46)
[2020-06-12] MEDS: LOSARTAN POTASSIUM 100 MG TABLET PO (08:35)
[2020-06-12] MEDS: FUROSEMIDE 40 MG TABLET PO ×2 (08:35→15:46)
[2020-06-12] MEDS: PRAVASTATIN SODIUM 20 MG TABLET 40 MG PO (08:36)
[2020-06-12] MEDS: SPIRONOLACTONE 12.5 MG TABLET PO (08:36)
[2020-06-12] MEDS: TAMSULOSIN HCL 0.4 MG CAPSULE PO (08:37)
[2020-06-12 12:00] VITALS: BP 123/57; PULSE 96; RESP 20; TEMP 36.5; O2SAT 92
[2020-06-12 16:00] VITALS: BP 119/56; PULSE 84; RESP 20; TEMP 37.4; O2SAT 92
--- NOTE | 2020-06-12 17:50 | PM.IMPN ---
Progress Note: A&P Assessment and Plan (1) Pneumonia due to COVID-19 virus: Code(s): U07.1 - COVID-19; J12.82 - Pneumonia due to coronavirus disease 2019 Status: Acute Assessment and Plan: Continue steroids and iV abx for superimposed bacterial infection (2) Respiratory failure with hypoxia: Qualifiers: Chronicity: acute Qualified Code(s): J96.01 - Acute respiratory failure with hypoxia Code(s): J96.91 - Respiratory failure, unspecified with hypoxia Status: Acute Assessment and Plan: Continue 2 liters of oxygen (3) Herpes zoster dermatitis: Code(s): B02.8 - Zoster with other complications; L30.8 - Other specified dermatitis Status: Acute Assessment and Plan: Pt is on steroids I will consult ID for further help. Subjective Date/time seen: 06/12/20 17:50 Interval history: 9 year old male with a past medical history of obstructive sleep apnea (not on CPAP), asthma, BPH, CHF, diabetes, chronic kidney disease stage III and recent diagnosis of COVID-19 06/05/2020 who presented to the ER with increased shortness of breath. Weak nauseated tired. pt is on 2 liters of oxygen. steroids and iv abx. Pt has outbreak of shingles Apr almost a month. Pt was on valtrex. I will try gabapentin for him. Pt has a wet cough in the room productive in nature Review of Systems Review of Systems: All systems reviewed & are unremarkable except as noted in HPI and below Exam Const: General: cooperative and tired appearing (wet cough unwell appearing ) Nutritional Appearance: overweight Orientation/consciousness: oriented to person HENMT: Head: normal to inspection Resp: Effort & Inspection: no respiratory distress Auscultation: no rhonchi and no wheezes Skin: Rashes: other (shingles on his left side ) Neuro: General: oriented to person Objective Data Vital Signs Vital Signs: Vital Signs - 24 hr 06/11/20 20:00 06/12/20 00:00 06/12/20 04:00 Temperature 36.2 C L 36.7 C 36.3 C L Pulse Rate 103 H 88 75 Respiratory Rate 20 18 20 Blood Pressure 168/54 H 126/62 129/71 Pulse Oximetry 92 93 95 06/12/20 08:00 06/12/20 12:00 06/12/20 16:00 Temperature 37.1 C 36.5 C 37.4 C Pulse Rate 83 96 84 Respiratory Rate 20 20 20 Blood Pressure 137/69 123/57 L 119/56 L Pulse Oximetry 94 92 92 Intake/Output Intake/Output: Intake & Output 06/09/20 06/10/20 06/11/20 06/12/20 23:59 23:59 23:59 23:59 Intake Total 50 1540 540 Balance 50 1540 540 Meds/Results Medications: Active Medications Generic Name Dose Route Start Last Admin Trade Name Freq PRN Reason Stop Dose Admin Acetaminophen 325 mg 06/12/20 16:03 Acetaminophen 325 Mg Tablet PO Q6H PRN Mild Pain (1-3) or Fever Albuterol 4 puff 06/10/20 18:32 Albuterol Sulfate (*Sp) Aerosol 1 Puff INHALATION Q4HRT PRN Shortness Of Breath Aspirin 81 mg 06/11/20 09:00 06/12/20 08:29 Aspirin 81 Mg Enteric Tablet PO 81 mg DAILY MELISSA Administration Dexamethasone Sodium Phosphate 6 mg 06/11/20 09:00 06/12/20 08:33 Dexamethasone Sod Phos Inj 4 Mg/Ml Vial IV PUSH 06/20/20 09:01 6 mg DAILY MELISSA Administration Doxycycline Hyclate 100 mg 06/10/20 21:00 06/12/20 08:34 Doxycycline Hyclate 100 Mg Tablet PO 100 mg Q12HR MELISSA Administration Enoxaparin Sodium 100 mg 06/11/20 06:00 06/12/20 15:47 Enoxaparin 100 Mg/Ml Syringe SUB-Q 100 mg Q12H MELISSA Administration Finasteride 5 mg 06/11/20 09:00 06/12/20 08:34 Finasteride 5 Mg Tablet PO 5 mg DAILY MELISSA Administration Fish Oil 1 gm 06/11/20 09:00 06/12/20 15:46 Inez 3 Polyunsat Fatty Acids 1 Gm Cap PO 1 gm BID MELISSA Administration Furosemide 40 mg 06/11/20 09:00 06/12/20 15:46 Furosemide 40 Mg Tablet PO 40 mg BID MELISSA Administration Gabapentin 100 mg 06/12/20 22:00 Gabapentin 100 Mg Capsule PO Q8HR [facility] Hydralazine HCl 25 mg 06/11/20 08:00 06/12/20 15:46
[2020-06-12] MEDS: BENZONATATE 100 MG CAPSULE PO (19:43)
[2020-06-12 20:00] VITALS: BP 106/56; PULSE 87; RESP 18; TEMP 36.6; O2SAT 91; O2SAT 93
[2020-06-12] MEDS: GABAPENTIN 100 MG CAPSULE PO (21:06)
[2020-06-13] VITALS: BP 146/92; PULSE 97; RESP 20; TEMP 36.1; O2SAT 90
[2020-06-13 04:00] VITALS: BP 140/90; PULSE 93; RESP 20; TEMP 36.9; O2SAT 90
[2020-06-13] MEDS: ENOXAPARIN 100 MG/ML SYRINGE SUB-Q ×2 (05:14→18:04)
[2020-06-13] MEDS: GABAPENTIN 100 MG CAPSULE PO ×3 (05:14→20:53)
[2020-06-13 08:00] VITALS: BP 92/61; PULSE 96; RESP 20; TEMP 37.2; O2SAT 90
[2020-06-13] MEDS: hydrALAZINE HCL 25 MG TABLET PO ×2 (08:46→18:01)
[2020-06-13] MEDS: FLUTICASONE/SALMETEROL 115-21 MCG (*SP) INHALER 2 PUFF INHALATION ×2 (08:46→20:55)
[2020-06-13] MEDS: BENZONATATE 100 MG CAPSULE PO ×3 (08:47→18:01)
[2020-06-13] MEDS: ASPIRIN 81 MG ENTERIC TABLET PO (08:47)
[2020-06-13] MEDS: DEXAMETHASONE SOD PHOS INJ 4 MG/ML VIAL 6 MG IV PUSH (08:49)
[2020-06-13] MEDS: FUROSEMIDE 40 MG TABLET PO (08:50)
[2020-06-13] MEDS: FINASTERIDE 5 MG TABLET PO (08:50)
[2020-06-13] MEDS: DOXYCYCLINE HYCLATE 100 MG TABLET PO (08:51)
[2020-06-13] MEDS: OMEGA 3 POLYUNSAT FATTY ACIDS 1 GM CAP PO ×2 (08:51→18:02)
[2020-06-13] MEDS: LOSARTAN POTASSIUM 100 MG TABLET PO (08:51)
[2020-06-13] MEDS: PRAVASTATIN SODIUM 20 MG TABLET 40 MG PO (08:52)
[2020-06-13] MEDS: SPIRONOLACTONE 12.5 MG TABLET PO (08:52)
[2020-06-13] MEDS: TAMSULOSIN HCL 0.4 MG CAPSULE PO (08:52)
[2020-06-13 12:00] VITALS: BP 90/46; PULSE 104; RESP 20; TEMP 37.7; O2SAT 90
--- NOTE | 2020-06-13 14:26 | WPDINFPN2 ---
Progress Note: A&P Assessment and Plan (1) Pneumonia due to COVID-19 virus: Code(s): U07.1 - COVID-19; J12.82 - Pneumonia due to coronavirus disease 2019 Status: Acute Assessment and Plan: 1. CoVid 19 viral pneumonia. albeit CXR is not impressive 2. Recent H zoster with PHN REC No antimicrobials needed. On dexamethasone and gabapentin Subjective Date/time seen: 06/13/20 14:26 Objective Data Vital Signs Vital Signs: Vital Signs - 24 hr 06/12/20 16:00 06/12/20 20:00 06/13/20 00:00 Temperature 37.4 C 36.6 C 36.1 C L Pulse Rate 84 87 97 Respiratory Rate 20 18 20 Blood Pressure 119/56 L 106/56 L 146/92 H Pulse Oximetry 92 91 90 06/13/20 04:00 06/13/20 08:00 06/13/20 12:00 Temperature 36.9 C 37.2 C 37.7 C H Pulse Rate 93 96 104 H Respiratory Rate 20 20 20 Blood Pressure 140/90 92/61 L 90/46 L Pulse Oximetry 90 90 90 Intake/Output Intake/Output: Intake & Output 06/10/20 06/11/20 06/12/20 06/13/20 23:59 23:59 23:59 23:59 Intake Total 50 1540 810 190 Balance 50 1540 810 190 Meds/Results Medications: Active Medications Generic Name Dose Route Start Last Admin Trade Name Freq PRN Reason Stop Dose Admin Acetaminophen 325 mg 06/12/20 16:03 Acetaminophen 325 Mg Tablet PO Q6H PRN Mild Pain (1-3) or Fever Albuterol 4 puff 06/10/20 18:32 Albuterol Sulfate (*Sp) Aerosol 1 Puff INHALATION Q4HRT PRN Shortness Of Breath Aspirin 81 mg 06/11/20 09:00 06/13/20 08:47 Aspirin 81 Mg Enteric Tablet PO 81 mg DAILY MELISSA Administration Benzonatate 100 mg 06/12/20 18:05 06/13/20 13:13 Benzonatate 100 Mg Capsule PO 100 mg TID MELISSA Administration Dexamethasone Sodium Phosphate 6 mg 06/11/20 09:00 06/13/20 08:49 Dexamethasone Sod Phos Inj 4 Mg/Ml Vial IV PUSH 06/20/20 09:01 6 mg DAILY MELISSA Administration Enoxaparin Sodium 100 mg 06/11/20 06:00 06/13/20 05:14 Enoxaparin 100 Mg/Ml Syringe SUB-Q 100 mg Q12H MELISSA Administration Finasteride 5 mg 06/11/20 09:00 06/13/20 08:50 Finasteride 5 Mg Tablet PO 5 mg DAILY MELISSA Administration Fish Oil 1 gm 06/11/20 09:00 06/13/20 08:51 Jacob 3 Polyunsat Fatty Acids 1 Gm Cap PO 1 gm BID MELISSA Administration Furosemide 40 mg 06/11/20 09:00 06/13/20 08:50 Furosemide 40 Mg Tablet PO 40 mg BID MELISSA Administration Gabapentin 100 mg 06/12/20 22:00 06/13/20 13:13 Gabapentin 100 Mg Capsule PO 100 mg Q8HR MELISSA Administration Hydralazine HCl 25 mg 06/11/20 08:00 06/13/20 08:46 Hydralazine Hcl 25 Mg Tablet PO 25 mg BIDWM MELISSA Administration Losartan Potassium 100 mg 06/11/20 09:00 06/13/20 08:51 Losartan Potassium 100 Mg Tablet PO 100 mg DAILY MELISSA Administration Menthol/Methyl Salicylate 1 applic 06/11/20 12:56 06/11/20 16:00 Menthol 10% / Methyl Salicylate 15% 57 Gm Tube TOPICAL 1 applic BID PRN Administration Muscle/Joint Pain Ondansetron HCl 4 mg 06/10/20 18:32 06/11/20 14:32 Ondansetron Inj 4 Mg/2 Ml Vial IV PUSH 4 mg Q4H PRN Administration Nausea Pravastatin Sodium 40 mg 06/11/20 09:00 06/13/20 08:52 Pravastatin Sodium 20 Mg Tablet PO 40 mg DAILY MELISSA Administration Fluticasone/Salmeterol 2 puff 06/11/20 09:55 06/13/20 08:46 Fluticasone/Salmeterol 115-21 Mcg (*Sp) Inhaler INHALATION 2 puff Q12HRT MELISSA Administration Spironolactone 12.5 mg 06/11/20 09:00 06/13/20 08:52 Spironolactone 12.5 Mg Tablet PO 12.5 mg DAILY MELISSA Administration Tamsulosin HCl 0.4 mg 06/11/20 09:00 06/13/20 08:52 Tamsulosin Hcl 0.4 Mg Capsule PO 0.4 mg DAILY MELISSA Administration Radiology Results: ITS Impressions Chest X-Ray 06/13/20 08:14 IMPRESSION: Moderate left, smaller right basilar infection and/or edema.
--- NOTE | 2020-06-13 15:15 | CONS_ITS ---
DATE OF CONSULTATION: 06/13/2020 REASON FOR CONSULTATION: Dyspnea and herpes zoster. HISTORY OF PRESENT ILLNESS: A 79-year-old male, who has had no previous coronavirus testing. Both he and his were exposed and had positive testing performed on June 05, testing done due to dyspnea. He was given no therapy specifically for his infection initially, but presented to the emergency room on June 10 with markedly worsened shortness of breath, dyspnea on exertion, fatigue, anorexia. No nausea or vomiting. No fevers. By the time of presentation, the patient had been symptomatic for 7 days. Here, he has been given dexamethasone, ceftriaxone, doxycycline, and consultation requested. He does have a dry cough. No sputum production or hemoptysis. No chest pain. He is ambulatory here with assistance to the bathroom, but does get dyspnea. He has known COPD in the form of asthma and uses an inhaler, both maintenance and rescue with the latter rarely being used. Not on home O2. No other recent antibiotics. At the end of April, day after [place], he had onset of a rash over his left hemithorax, which is nearly resolved. About a week after onset of symptoms, he had onset of pain which persists now. Here he has been given gabapentin. ALLERGIES: NONE KNOWN. PRESENT MEDICATIONS: No immunosuppressants otherwise. HABITS: No alcohol. Quit smoking in 1984. PAST MEDICAL HISTORY: In addition to the above, cataract surgery, back surgery, type 2 diabetes mellitus, ANEUDY, hyperlipidemia, morbid obesity, hypertension, stage 3 chronic renal insufficiency, and BPH, though he denies any current voiding symptoms. FAMILY HISTORY: [place]. SOCIAL HISTORY: He works part-time. 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 . Lives locally. His is self-quarantine, but fortunately has not become severely ill. REVIEW OF SYSTEMS: 14-point review otherwise negative. PHYSICAL EXAMINATION: GENERAL: This is an elderly male who appears his actual age on supplemental O2 at 5 L. He is 90%. VITAL SIGNS: Respirations 20, 104, 90/46. Since arrival T-max 37.7. SKIN: Warm and dry. No generalized rashes. NODES: He has no cervical adenopathy. EENT: The conjunctivae appear clear. The oropharynx, oral mucosa well hydrated. No thrush. NECK: No masses, thyromegaly or meningismus. LUNGS: Clear to auscultation and percussion. Breath sounds are vesicular. CHEST: He has a papular, hyperpigmented rash over the left hemithorax just below the nipple. No satellite lesions. No vesicles. No crusting. CARDIAC: Tachycardic, regular. No murmurs or gallops. ABDOMEN: Morbidly obese, nontender. No masses. No organomegaly. He has no flank tenderness. EXTREMITIES: Show 1+ nonpitting edema, distal legs and ankles. RADIOLOGY: I personally reviewed his chest x-ray. This shows cardiomegaly, no infiltrates. The radiologist has read moderate left and small right infiltrates and/or edema. LABORATORY DATA: White count was 11.3, now 7.7; hemoglobin 12.5, which is down a point; platelets are 254. Blood gases 7.44, 27, 59, 18, 92% and that is on room air. He has mild hyponatremia. Initial creatinine was 2.2, now 1.3. Estimated GFR 53. Ferritin is 1580. Transaminases 3 times to 4 times normal. LDH high. CRP 7.1. Coronavirus assay 06/05/2020, reactive. ASSESSMENT: 1. Dyspnea, hypoxemia, elevated transaminases, all due to acute coronavirus infection with viral pneumonia, though his chest x-ray is unimpressive. There is no bacterial superinfection clinically. 2. Recent herpes zoster with neuralgia. 3. Morbid obesity. 4. Diabetes mellitus, appears reasonably well controlled. 5. Renal insufficiency, largely resolved. RECOMMENDATIONS: 1. No antivirals and no antibacterials, I d
[2020-06-13 16:00] VITALS: BP 112/63; PULSE 82; RESP 18; TEMP 37.1; O2SAT 90
--- NOTE | 2020-06-13 17:01 | PM.IMPN ---
Progress Note: A&P Assessment and Plan (1) Pneumonia due to COVID-19 virus: Code(s): U07.1 - COVID-19; J12.82 - Pneumonia due to coronavirus disease 2019 Status: Acute Assessment and Plan: Continue steroids, tessalon perles and oxygen, continue to watch. bp slightly low, fluid bolus given today. pt had mild fever continue to watch (2) Respiratory failure with hypoxia: Qualifiers: Chronicity: acute Qualified Code(s): J96.01 - Acute respiratory failure with hypoxia Code(s): J96.91 - Respiratory failure, unspecified with hypoxia Status: Acute Assessment and Plan: Continue 5 liters of oxygen (3) Herpes zoster dermatitis: Code(s): B02.8 - Zoster with other complications; L30.8 - Other specified dermatitis Status: Acute Assessment and Plan: Pt is on steroids and gabapentin I will consult ID for further help. Subjective Date/time seen: 06/13/20 17:01 Interval history: 9 year old male with a past medical history of obstructive sleep apnea (not on CPAP), asthma, BPH, CHF, diabetes, chronic kidney disease stage III and recent diagnosis of COVID-19 06/05/2020 who presented to the ER with increased shortness of breath. Weak nauseated tired. pt is on 2 liters of oxygen. steroids and iv abx. Pt has outbreak of shingles Apr almost a month. Pt was on valtrex. I will try gabapentin for him. Pt is sob, with wet cough. on 5 liters of oxygen, pt has a fever. bp little low. I will start fluids. continue steroids and oxygen. Pt seen by ID off iv antibiotics. CXR shows R sided pneumonia likely covid pneumonia. Review of Systems Review of Systems: All systems reviewed & are unremarkable except as noted in HPI and below Exam Const: General: cooperative and tired appearing (wet cough unwell appearing ) Nutritional Appearance: overweight Orientation/consciousness: oriented to person Resp: Effort & Inspection: no respiratory distress Auscultation: no rhonchi and no wheezes Skin: Rashes: other (shingles on his left side ) Neuro: General: oriented to person Objective Data Vital Signs Vital Signs: Vital Signs - 24 hr 06/12/20 20:00 06/13/20 00:00 06/13/20 04:00 Temperature 36.6 C 36.1 C L 36.9 C Pulse Rate 87 97 93 Respiratory Rate 18 20 20 Blood Pressure 106/56 L 146/92 H 140/90 Pulse Oximetry 91 90 90 06/13/20 08:00 06/13/20 12:00 Temperature 37.2 C 37.7 C H Pulse Rate 96 104 H Respiratory Rate 20 20 Blood Pressure 92/61 L 90/46 L Pulse Oximetry 90 90 Intake/Output Intake/Output: Intake & Output 06/10/20 06/11/20 06/12/20 06/13/20 23:59 23:59 23:59 23:59 Intake Total 50 1540 810 190 Balance 50 1540 810 190 Meds/Results Medications: Active Medications Generic Name Dose Route Start Last Admin Trade Name Freq PRN Reason Stop Dose Admin Acetaminophen 325 mg 06/12/20 16:03 Acetaminophen 325 Mg Tablet PO Q6H PRN Mild Pain (1-3) or Fever Albuterol 4 puff 06/10/20 18:32 Albuterol Sulfate (*Sp) Aerosol 1 Puff INHALATION Q4HRT PRN Shortness Of Breath Aspirin 81 mg 06/11/20 09:00 06/13/20 08:47 Aspirin 81 Mg Enteric Tablet PO 81 mg DAILY MELISSA Administration Benzonatate 100 mg 06/12/20 18:05 06/13/20 13:13 Benzonatate 100 Mg Capsule PO 100 mg TID MELISSA Administration Dexamethasone Sodium Phosphate 6 mg 06/11/20 09:00 06/13/20 08:49 Dexamethasone Sod Phos Inj 4 Mg/Ml Vial IV PUSH 06/20/20 09:01 6 mg DAILY MELISSA Administration Enoxaparin Sodium 100 mg 06/11/20 06:00 06/13/20 05:14 Enoxaparin 100 Mg/Ml Syringe SUB-Q 100 mg Q12H MELISSA Administration Finasteride 5 mg 06/11/20 09:00 06/13/20 08:50 Finasteride 5 Mg Tablet PO 5 mg DAILY MELISSA Administration Fish Oil 1 gm 06/11/20 09:00 06/13/20 08:51 [place] 3 Polyunsat Fatty Acids 1 Gm Cap PO 1 gm BID MELISSA Administration Furosemide 40 mg 06/11/20 09:00 06/13/20 08:50 Furosemide 40 Mg Tablet PO 40 m
[2020-06-13] MEDS: SODIUM CHLORIDE 0.9% IV 1,000 ML 500 ML IV CONT (18:02)
[2020-06-13 20:00] VITALS: BP 128/54; PULSE 88; RESP 20; TEMP 36.3; O2SAT 90
[2020-06-13] MEDS: ALBUTEROL SULFATE (*SP) AEROSOL 1 PUFF 4 PUFF INHALATION (20:53)
[2020-06-13] MEDS: ACETAMINOPHEN 325 MG TABLET PO (21:12)
[2020-06-14] VITALS (8 sets, daily range): BP systolic 115–152; BP diastolic 49–71; PULSE 74–92; RESP 18–24; TEMP 36–36.9; O2SAT 72–96
[2020-06-14] MEDS: GABAPENTIN 100 MG CAPSULE PO ×3 (06:24→21:04)
[2020-06-14] MEDS: ENOXAPARIN 100 MG/ML SYRINGE SUB-Q ×2 (06:25→17:53)
[2020-06-14] MEDS: FLUTICASONE/SALMETEROL 115-21 MCG (*SP) INHALER 2 PUFF INHALATION ×2 (08:48→21:04)
[2020-06-14] MEDS: OMEGA 3 POLYUNSAT FATTY ACIDS 1 GM CAP PO ×2 (08:49→17:53)
[2020-06-14] MEDS: LOSARTAN POTASSIUM 100 MG TABLET PO (08:49)
[2020-06-14] MEDS: DEXAMETHASONE SOD PHOS INJ 4 MG/ML VIAL 6 MG IV PUSH (08:49)
[2020-06-14] MEDS: FINASTERIDE 5 MG TABLET PO (08:49)
[2020-06-14] MEDS: hydrALAZINE HCL 25 MG TABLET PO ×2 (08:49→17:53)
[2020-06-14] MEDS: PRAVASTATIN SODIUM 20 MG TABLET 40 MG PO (08:49)
[2020-06-14] MEDS: TAMSULOSIN HCL 0.4 MG CAPSULE PO (08:49)
[2020-06-14] MEDS: ASPIRIN 81 MG ENTERIC TABLET PO (08:49)
[2020-06-14] MEDS: BENZONATATE 100 MG CAPSULE PO ×3 (08:49→17:53)
[2020-06-14] MEDS: SPIRONOLACTONE 12.5 MG TABLET PO (08:50)
--- NOTE | 2020-06-14 11:55 | PC.NURSE ---
0900 pt was coughing stated he was short of breath pulse ox was 72. he was on 5 liter, high flow nc applied with humidity, started at 8l stayed at 79 increased to 10 l , pulse ox 84, so increased to 12l pulse ox finally reached 91% , at 0930.
--- NOTE | 2020-06-14 12:56 | PM.IMPN ---
Progress Note: A&P Assessment and Plan (1) Pneumonia due to COVID-19 virus: Code(s): U07.1 - COVID-19; J12.82 - Pneumonia due to coronavirus disease 2019 Status: Acute Assessment and Plan: Continue inhalers, steroids, tessalon perles and oxygen, continue to watch. Seen by ID see recommendations (2) Respiratory failure with hypoxia: Qualifiers: Chronicity: acute Qualified Code(s): J96.01 - Acute respiratory failure with hypoxia Code(s): J96.91 - Respiratory failure, unspecified with hypoxia Status: Acute Assessment and Plan: Continue 5 liters of oxygen (3) Herpes zoster dermatitis: Code(s): B02.8 - Zoster with other complications; L30.8 - Other specified dermatitis Status: Acute Assessment and Plan: Pt is on steroids and gabapentin no need for antiviral agents (4) CHF (congestive heart failure): Code(s): I50.9 - Heart failure, unspecified Status: Acute Assessment and Plan: Continue lasix and spironolactone Subjective Date/time seen: 06/14/20 12:56 Interval history: 9 year old male with a past medical history of obstructive sleep apnea (not on CPAP), asthma, BPH, CHF, diabetes, chronic kidney disease stage III and recent diagnosis of COVID-19 06/05/2020 who presented to the ER with increased shortness of breath. Pt has outbreak of shingles Apr almost a month. Pt was on valtrex. I will try gabapentin for him. Pt is sob, with wet cough. on 5 liters of oxygen. CXR shows R sided pneumonia likely mild covid pneumonia. Pt lfts are high on admission? why, pt denies alcholol, continue steroids for 10 days as per ID note. Review of Systems Review of Systems: All systems reviewed & are unremarkable except as noted in HPI and below Exam Const: General: cooperative and tired appearing (wet cough unwell appearing ) Nutritional Appearance: overweight Orientation/consciousness: oriented to person HENMT: Head: normal to inspection Resp: Effort & Inspection: no respiratory distress Auscultation: no rhonchi and no wheezes Skin: Rashes: other (shingles on his left side ) Neuro: General: oriented to person Objective Data Vital Signs Vital Signs: Vital Signs - 24 hr 06/13/20 16:00 06/13/20 20:00 06/14/20 00:00 Temperature 37.1 C 36.3 C L 36.1 C L Pulse Rate 82 88 78 Respiratory Rate 18 20 24 H Blood Pressure 112/63 128/54 L 134/68 Pulse Oximetry 90 90 96 06/14/20 04:00 06/14/20 08:00 06/14/20 09:00 Temperature 36.4 C 36.0 C L Pulse Rate 74 82 Respiratory Rate 20 22 H Blood Pressure 115/49 L 152/64 H Pulse Oximetry 92 89 L 72 L Intake/Output Intake/Output: Intake & Output 06/11/20 06/12/20 06/13/20 06/14/20 23:59 23:59 23:59 23:59 Intake Total 1397 087 5030 390 Balance 6298 688 6081 390 Meds/Results Medications: Active Medications Generic Name Dose Route Start Last Admin Trade Name Freq PRN Reason Stop Dose Admin Acetaminophen 325 mg 06/12/20 16:03 06/13/20 21:12 Acetaminophen 325 Mg Tablet PO 325 mg Q6H PRN Administration Mild Pain (1-3) or Fever Albuterol 4 puff 06/10/20 18:32 06/13/20 20:53 Albuterol Sulfate (*Sp) Aerosol 1 Puff INHALATION 4 puff Q4HRT PRN Administration Shortness Of Breath Aspirin 81 mg 06/11/20 09:00 06/14/20 08:49 Aspirin 81 Mg Enteric Tablet PO 81 mg DAILY MELISSA Administration Benzonatate 100 mg 06/12/20 18:05 06/14/20 08:49 Benzonatate 100 Mg Capsule PO 100 mg TID MELISSA Administration Dexamethasone Sodium Phosphate 6 mg 06/11/20 09:00 06/14/20 08:49 Dexamethasone Sod Phos Inj 4 Mg/Ml Vial IV PUSH 06/20/20 09:01 6 mg DAILY MELISSA Administration Enoxaparin Sodium 100 mg 06/11/20 06:00 06/14/20 06:25 Enoxaparin 100 Mg/Ml Syringe SUB-Q 100 mg Q12H MELISSA Administration Finasteride 5 mg 06/11/20 09:00 06/14/20 08:49 Finasteride 5 Mg Tablet PO 5 mg DAILY MELISSA Administration Fish Oil 1 gm 0
[2020-06-14] MEDS: FUROSEMIDE 40 MG TABLET PO (17:53)
[2020-06-14] MEDS: ALBUTEROL SULFATE (*SP) AEROSOL 1 PUFF 4 PUFF INHALATION (21:04)
[2020-06-15] VITALS (9 sets, daily range): BP systolic 129–149; BP diastolic 52–73; PULSE 77–91; RESP 18–24; TEMP 35.8–37.1; O2SAT 91–97
[2020-06-15] MEDS: ENOXAPARIN 100 MG/ML SYRINGE SUB-Q ×2 (05:30→17:57)
[2020-06-15] MEDS: GABAPENTIN 100 MG CAPSULE PO ×3 (05:30→23:01)
[2020-06-15 07:26] LABS: Alanine Aminotransferase 95 U/L (4-50); Albumin Level 2.9 g/dL (3.5-5.1); Alkaline Phosphatase 40 U/L (38-126); Anion Gap -1 mmol/L (8-16); Aspartate Amino Transferase 32 U/L (17-59); Bilirubin,Total 0.4 mg/dL (0.2-1.3); Blood Urea Nitrogen 42 mg/dL (9-20); Calcium 8.5 mg/dL (8.4-10.2); Carbon Dioxide 29 mmol/L (22-30); Chloride 109 mmol/L (98-107); Estimated CRCL calculation 52 ml/min; Estimated Glomerular Filt Rate 53; Glucose 212 mg/dL (75-110); Potassium 4.3 mmol/L (3.4-5.0); Sodium 137 mmol/L (137-145)
[2020-06-15] MEDS: FLUTICASONE/SALMETEROL 115-21 MCG (*SP) INHALER 2 PUFF INHALATION ×2 (09:16→22:59)
[2020-06-15] MEDS: hydrALAZINE HCL 25 MG TABLET PO ×2 (09:17→17:57)
[2020-06-15] MEDS: BENZONATATE 100 MG CAPSULE PO ×3 (09:17→17:57)
[2020-06-15] MEDS: ASPIRIN 81 MG ENTERIC TABLET PO (09:17)
[2020-06-15] MEDS: DEXAMETHASONE SOD PHOS INJ 4 MG/ML VIAL 6 MG IV PUSH (09:17)
[2020-06-15] MEDS: FINASTERIDE 5 MG TABLET PO (09:18)
[2020-06-15] MEDS: LOSARTAN POTASSIUM 100 MG TABLET PO (09:18)
[2020-06-15] MEDS: SPIRONOLACTONE 12.5 MG TABLET PO (09:18)
[2020-06-15] MEDS: OMEGA 3 POLYUNSAT FATTY ACIDS 1 GM CAP PO ×2 (09:18→17:57)
[2020-06-15] MEDS: FUROSEMIDE 40 MG TABLET PO ×2 (09:18→17:57)
[2020-06-15] MEDS: PRAVASTATIN SODIUM 20 MG TABLET 40 MG PO (09:18)
[2020-06-15] MEDS: TAMSULOSIN HCL 0.4 MG CAPSULE PO (09:18)
[2020-06-15] MEDS: ONDANSETRON INJ 4 MG/2 ML VIAL IV PUSH (10:43)
--- NOTE | 2020-06-15 13:11 | PM.IMPN ---
Progress Note: A&P Assessment and Plan (1) Pneumonia due to COVID-19 virus: Code(s): U07.1 - COVID-19; J12.82 - Pneumonia due to coronavirus disease 2018 Status: Acute Assessment and Plan: Day 5 of 10 dexamethasone Full dose enoxaparin for thromboembolism prophylaxis (2) Respiratory failure with hypoxia: Qualifiers: Chronicity: acute Qualified Code(s): J96.01 - Acute respiratory failure with hypoxia Code(s): J96.91 - Respiratory failure, unspecified with hypoxia Status: Acute Assessment and Plan: Requiring high-flow oxygen at 10L [place] as possible (3) Herpes zoster dermatitis: Code(s): B02.8 - Zoster with other complications; L30.8 - Other specified dermatitis Status: Acute Assessment and Plan: Continue gabapentin for neuralgia (4) CHF (congestive heart failure): Code(s): I50.9 - Heart failure, unspecified Status: Acute Assessment and Plan: Clinically stable Continue home regimen Subjective Date/time seen: 06/15/20 13:11 Interval history: 79 year old male with a past medical history of obstructive sleep apnea (not on CPAP), asthma, BPH, CHF, diabetes, chronic kidney disease stage III and recent diagnosis of COVID-19 06/05/2020 who presented to the ER with increased shortness of breath. Pt had shingles 05/10. 06/15: C/o fatigue, generalized aching. CA[place]ILLO with activity. Review of Systems Review of Systems: All systems reviewed & are unremarkable except as noted in HPI and below Exam Narrative: Exam Narrative: HEENT: EOMI, PERRL, sclerae nonicteric, pharyngeal mucosa pink and intact NECK: No JVD CHEST: Slightly coarse BS HEART: NL S1/S2, regular, no murmur ABDOMEN: BS+, soft, nontender, no mass, no bruits EXTREMITIES: No cyanosis, edema, or clubbing NEUROLOGIC: CN intact and symmetric to inspection. MUSCULOSKELETAL: Tone and strength symmetric. PSYCH: Alert. Oriented to person, place, and time. Objective Data Vital Signs Vital Signs: Vital Signs - 24 hr 06/14/20 16:00 06/14/20 20:00 06/15/20 00:00 Temperature 98.4 F 97.1 F L 96.4 F L Pulse Rate 80 88 90 Respiratory Rate 18 20 20 Blood Pressure 135/71 122/49 L 139/52 L Pulse Oximetry 96 90 92 06/15/20 04:00 06/15/20 08:00 06/15/20 09:15 Temperature 96.5 F L 97.5 F L Pulse Rate 82 88 88 Respiratory Rate 20 20 20 Blood Pressure 149/64 H 130/59 L Pulse Oximetry 92 91 91 Intake/Output Intake/Output: Intake & Output 06/12/20 06/13/20 06/14/20 06/15/20 23:59 23:59 23:59 23:59 Intake Total 810 1220 1570 510 Balance 810 1220 1570 510 Meds/Results Medications: Active Medications Generic Name Dose Route Start Last Admin Trade Name Freq PRN Reason Stop Dose Admin Acetaminophen 325 mg 06/12/20 16:03 06/13/20 21:12 Acetaminophen 325 Mg Tablet PO 325 mg Q6H PRN Administration Mild Pain (1-3) or Fever Albuterol 4 puff 06/10/20 18:32 06/14/20 21:04 Albuterol Sulfate (*Sp) Aerosol 1 Puff INHALATION 4 puff Q4HRT PRN Administration Shortness Of Breath Aspirin 81 mg 06/11/20 09:00 06/15/20 09:17 Aspirin 81 Mg Enteric Tablet PO 81 mg DAILY MELISSA Administration Benzonatate 100 mg 06/12/20 18:05 06/15/20 12:21 Benzonatate 100 Mg Capsule PO 100 mg TID MELISSA Administration Dexamethasone Sodium Phosphate 6 mg 06/11/20 09:00 06/15/20 09:17 Dexamethasone Sod Phos Inj 4 Mg/Ml Vial IV PUSH 06/20/20 09:01 6 mg DAILY MELISSA Administration Enoxaparin Sodium 100 mg 06/11/20 06:00 06/15/20 05:30 Enoxaparin 100 Mg/Ml Syringe SUB-Q 100 mg Q12H MELISSA Administration Finasteride 5 mg 06/11/20 09:00 06/15/20 09:18 Finasteride 5 Mg Tablet PO 5 mg DAILY MELISSA Administration Fish Oil 1 gm 06/11/20 09:00 06/15/20 09:18 [place] 3 Polyunsat Fatty Acids 1 Gm Cap PO 1 gm BID MELISSA Administration Furosemide 40 mg 06/14/20 17:00 06/15/20 09:18 Furosemide 40 Mg Tablet PO 40 mg BID [facility]
--- NOTE | 2020-06-15 14:01 | PCPTNOTE ---
Per RN hold therapy this afternoon. She reports patient seems weaker today and is just down due to some news from family. RN states to give patient the day and re check tomorrow. Will follow up at later time and date.
[2020-06-15] MEDS: WATER FOR IRRIGATION, STERILE 1,000 ML BOTTLE 1000 ML (15:41)
[2020-06-16 04:00] VITALS: BP 125/61; PULSE 77; RESP 20; TEMP 36.3; O2SAT 96
[2020-06-16] MEDS: ENOXAPARIN 100 MG/ML SYRINGE SUB-Q ×2 (05:24→17:39)
[2020-06-16] MEDS: GABAPENTIN 100 MG CAPSULE PO ×3 (05:24→21:02)
[2020-06-16 06:51] LABS: Hematocrit 39.6 % (42.0-52.0); Hemoglobin 12.8 g/dL (14.0-18.0); Mean Corpuscular HGB Conc 32.3 g/dl (32-36); Mean Corpuscular Hemoglobin 31.6 pg (26-34); Mean Corpuscular Volume 97.8 fl (80-100); Mean Platelet Volume 9.5 fl (7.4-10.4); Platelet Count Result 402 k/mm3 (150-375); Red Blood Count 4.05 M/mm3 (4.6-6.20); White Blood Count 10.8 K/mm3 (4.5-10.0)
[2020-06-16 07:09] LABS: Alanine Aminotransferase 90 U/L (4-50); Albumin Level 3.2 g/dL (3.5-5.1); Alkaline Phosphatase 40 U/L (38-126); Anion Gap 4 mmol/L (8-16); Aspartate Amino Transferase 34 U/L (17-59); Bilirubin,Total 0.5 mg/dL (0.2-1.3); Blood Urea Nitrogen 50 mg/dL (9-20); CRP 4.8 mg/dL (<1.0); Carbon Dioxide 30 mmol/L (22-30); Chloride 105 mmol/L (98-107); Estimated CRCL calculation 56 ml/min; Estimated Glomerular Filt Rate 59; Glucose 201 mg/dL (75-110); Lactate Dehydrogenase 627 U/L (313-618); Potassium 4.5 mmol/L (3.4-5.0); Sodium 139 mmol/L (137-145)
[2020-06-16 07:16] LABS: D Dimer 0.28 ug/mL (<0.48)
[2020-06-16 08:00] VITALS: BP 131/64; PULSE 75; RESP 16; TEMP 36.6; O2SAT 94
[2020-06-16] MEDS: hydrALAZINE HCL 25 MG TABLET PO ×2 (09:45→17:38)
[2020-06-16] MEDS: FUROSEMIDE 40 MG TABLET PO ×2 (09:45→17:38)
[2020-06-16] MEDS: BENZONATATE 100 MG CAPSULE PO ×3 (09:45→17:38)
[2020-06-16] MEDS: PRAVASTATIN SODIUM 20 MG TABLET 40 MG PO (09:45)
[2020-06-16] MEDS: LOSARTAN POTASSIUM 100 MG TABLET PO (09:45)
[2020-06-16] MEDS: OMEGA 3 POLYUNSAT FATTY ACIDS 1 GM CAP PO ×2 (09:45→17:39)
[2020-06-16] MEDS: FLUTICASONE/SALMETEROL 115-21 MCG (*SP) INHALER 2 PUFF INHALATION ×2 (09:45→20:55)
[2020-06-16] MEDS: ASPIRIN 81 MG ENTERIC TABLET PO (09:45)
[2020-06-16] MEDS: TAMSULOSIN HCL 0.4 MG CAPSULE PO (09:45)
[2020-06-16] MEDS: FINASTERIDE 5 MG TABLET PO (09:45)
[2020-06-16] MEDS: SPIRONOLACTONE 12.5 MG TABLET PO (09:45)
[2020-06-16] MEDS: DEXAMETHASONE SOD PHOS INJ 4 MG/ML VIAL 6 MG IV PUSH (09:46)
--- NOTE | 2020-06-16 11:52 | WPDINFPN2 ---
Progress Note: A&P Assessment and Plan (1) Pneumonia due to COVID-19 virus: Code(s): U07.1 - COVID-19; J12.82 - Pneumonia due to coronavirus disease 2019 Status: Acute Assessment and Plan: 1. CoVid 19 viral pneumonia. stable, on [place] O2. 2. Recent H zoster with PHN, not ijn need of antiviral therapy. No worsening in his exam despite being on steroids REC No antimicrobials needed. Continue 10 day course of dexamethasone. Also on gabapentin. No CCP no remdesivir. Subjective Date/time seen: 06/16/20 11:52 Interval history: feesl weak, no dyspnea at rest no cough no sputum Exam Narrative: Exam Narrative: afebrile Const: General: no acute distress Resp: Effort & Inspection: normal respiratory effort Auscultation: clear to auscultation bilaterally Cardio: Rate: regular rate Rhythm: regular rhythm Heart sounds: no gallops and no murmurs GI: Inspection: non-distended GI Palp: Yes Soft to palpation and No Tenderness to palpation present (GI) Skin: General skin exam: normal color and no rashes or lesions noted Objective Data Vital Signs Vital Signs: Vital Signs - 24 hr 06/15/20 12:00 06/15/20 16:00 06/15/20 17:13 Temperature 36.4 C L 36.5 C Pulse Rate 89 88 Respiratory Rate 24 H 22 H Blood Pressure 129/57 L 140/68 Pulse Oximetry 97 91 93 06/15/20 20:00 06/15/20 23:55 06/16/20 04:00 Temperature 37.1 C 36.4 C L 36.3 C L Pulse Rate 91 77 77 Respiratory Rate 18 18 20 Blood Pressure 141/73 H 136/68 125/61 Pulse Oximetry 94 94 96 06/16/20 08:00 Temperature 36.6 C Pulse Rate 75 Respiratory Rate 16 Blood Pressure 131/64 Pulse Oximetry 94 Intake/Output Intake/Output: Intake & Output 06/13/20 06/14/20 06/15/20 06/16/20 23:59 23:59 23:59 23:59 Intake Total 1220 1570 1370 370 Output Total 625 Balance 1220 1570 1370 -255 Meds/Results Medications: Active Medications Generic Name Dose Route Start Last Admin Trade Name Freq PRN Reason Stop Dose Admin Acetaminophen 325 mg 06/12/20 16:03 06/13/20 21:12 Acetaminophen 325 Mg Tablet PO 325 mg Q6H PRN Administration Mild Pain (1-3) or Fever Albuterol 4 puff 06/10/20 18:32 06/14/20 21:04 Albuterol Sulfate (*Sp) Aerosol 1 Puff INHALATION 4 puff Q4HRT PRN Administration Shortness Of Breath Aspirin 81 mg 06/11/20 09:00 06/16/20 09:45 Aspirin 81 Mg Enteric Tablet PO 81 mg DAILY MELISSA Administration Benzonatate 100 mg 06/12/20 18:05 06/16/20 09:45 Benzonatate 100 Mg Capsule PO 100 mg TID MELISSA Administration Dexamethasone Sodium Phosphate 6 mg 06/11/20 09:00 06/16/20 09:46 Dexamethasone Sod Phos Inj 4 Mg/Ml Vial IV PUSH 06/20/20 09:01 6 mg DAILY MELISSA Administration Enoxaparin Sodium 100 mg 06/11/20 06:00 06/16/20 05:24 Enoxaparin 100 Mg/Ml Syringe SUB-Q 100 mg Q12H MELISSA Administration Finasteride 5 mg 06/11/20 09:00 06/16/20 09:45 Finasteride 5 Mg Tablet PO 5 mg DAILY MELISSA Administration Fish Oil 1 gm 06/11/20 09:00 06/16/20 09:45 [place] 3 Polyunsat Fatty Acids 1 Gm Cap PO 1 gm BID MELISSA Administration Furosemide 40 mg 06/14/20 17:00 06/16/20 09:45 Furosemide 40 Mg Tablet PO 40 mg BID MELISSA Administration Gabapentin 100 mg 06/12/20 22:00 06/16/20 05:24 Gabapentin 100 Mg Capsule PO 100 mg Q8HR MELISSA Administration Hydralazine HCl 25 mg 06/11/20 08:00 06/16/20 09:45 Hydralazine Hcl 25 Mg Tablet PO 25 mg BIDWM MELISSA Administration Losartan Potassium 100 mg 06/11/20 09:00 06/16/20 09:45 Losartan Potassium 100 Mg Tablet PO 100 mg DAILY MELISSA Administration Menthol/Methyl Salicylate 1 applic 06/11/20 12:56 06/11/20 16:00 Menthol 10% / Methyl Salicylate 15% 57 Gm Tube TOPICAL 1 applic BID PRN Administration Muscle/Joint Pain Ondansetron HCl 4 mg 06/10/20 18:32 06/15/20 10:43 Ondansetron Inj 4 Mg/2 Ml Vial IV PUSH 4 mg Q4H PRN Administration Nausea Polyethylene Glycol 17 g
[2020-06-16 12:00] VITALS: BP 114/60; PULSE 96; RESP 16; TEMP 36.1; O2SAT 94
[2020-06-16 16:00] VITALS: BP 118/59; PULSE 81; RESP 20; TEMP 36.1; O2SAT 96
--- NOTE | 2020-06-16 16:07 | PM.IMPN ---
Progress Note: A&P Assessment and Plan (1) Pneumonia due to COVID-19 virus: Code(s): U07.1 - COVID-19; J12.82 - Pneumonia due to coronavirus disease 2019 Status: Acute Assessment and Plan: Day 6 of 10 dexamethasone Full dose enoxaparin for thromboembolism prophylaxis (2) Respiratory failure with hypoxia: Qualifiers: Chronicity: acute Qualified Code(s): J96.01 - Acute respiratory failure with hypoxia Code(s): J96.91 - Respiratory failure, unspecified with hypoxia Status: Acute Assessment and Plan: Requiring high-flow oxygen at 10L [place] as possible (3) Herpes zoster dermatitis: Code(s): B02.8 - Zoster with other complications; L30.8 - Other specified dermatitis Status: Acute Assessment and Plan: Continue gabapentin for neuralgia (4) CHF (congestive heart failure): Code(s): I50.9 - Heart failure, unspecified Status: Acute Assessment and Plan: Clinically stable Continue home regimen Subjective Date/time seen: 06/16/20 16:07 Interval history: 9 year old male with a past medical history of obstructive sleep apnea (not on CPAP), asthma, BPH, CHF, diabetes, chronic kidney disease stage III and recent diagnosis of COVID-19 06/05/2020 who presented to the ER with increased shortness of breath. Pt has outbreak of shingles Apr almost a month. Pt was on valtrex. I will try gabapentin for him. Pt is sob, pt feels tired, but denies cough. CXR shows R sided pneumonia likely mild covid pneumonia. Pt lfts are high on admission? Pt being seen by ID also. Review of Systems Review of Systems: All systems reviewed & are unremarkable except as noted in HPI and below Exam Narrative: Exam Narrative: Elderly man very tired on 10 liters of oxygen HEART: NL S1/S2, regular, no murmur ABDOMEN: BS+, soft, nontender, no mass, no bruits EXTREMITIES: No cyanosis, edema, or clubbing NEUROLOGIC: CN intact and symmetric to inspection. MUSCULOSKELETAL: Tone and strength symmetric. PSYCH: Alert. Oriented to person, place, and time. Objective Data Vital Signs Vital Signs: Vital Signs - 24 hr 06/15/20 17:13 06/15/20 20:00 06/15/20 23:55 Temperature 37.1 C 36.4 C L Pulse Rate 91 77 Respiratory Rate 18 18 Blood Pressure 141/73 H 136/68 Pulse Oximetry 93 94 94 06/16/20 04:00 06/16/20 08:00 06/16/20 12:00 Temperature 36.3 C L 36.6 C 36.1 C L Pulse Rate 77 75 96 Respiratory Rate 20 16 16 Blood Pressure 125/61 131/64 114/60 Pulse Oximetry 96 94 94 Intake/Output Intake/Output: Intake & Output 06/13/20 06/14/20 06/15/20 06/16/20 23:59 23:59 23:59 23:59 Intake Total 1220 1570 1370 370 Output Total 625 Balance 1220 1570 1370 -255 Meds/Results Medications: Active Medications Generic Name Dose Route Start Last Admin Trade Name Freq PRN Reason Stop Dose Admin Acetaminophen 325 mg 06/12/20 16:03 06/13/20 21:12 Acetaminophen 325 Mg Tablet PO 325 mg Q6H PRN Administration Mild Pain (1-3) or Fever Albuterol 4 puff 06/10/20 18:32 06/14/20 21:04 Albuterol Sulfate (*Sp) Aerosol 1 Puff INHALATION 4 puff Q4HRT PRN Administration Shortness Of Breath Aspirin 81 mg 06/11/20 09:00 06/16/20 09:45 Aspirin 81 Mg Enteric Tablet PO 81 mg DAILY MELISSA Administration Benzonatate 100 mg 06/12/20 18:05 06/16/20 13:06 Benzonatate 100 Mg Capsule PO 100 mg TID MELISSA Administration Dexamethasone Sodium Phosphate 6 mg 06/11/20 09:00 06/16/20 09:46 Dexamethasone Sod Phos Inj 4 Mg/Ml Vial IV PUSH 06/20/20 09:01 6 mg DAILY MELISSA Administration Enoxaparin Sodium 100 mg 06/11/20 06:00 06/16/20 05:24 Enoxaparin 100 Mg/Ml Syringe SUB-Q 100 mg Q12H MELISSA Administration Finasteride 5 mg 06/11/20 09:00 06/16/20 09:45 Finasteride 5 Mg Tablet PO 5 mg DAILY MELISSA Administration Fish Oil 1 gm 06/11/20 09:00 06/16/20 09:45 [place] 3 Polyunsat Fatty Acids 1 Gm Cap PO 1 gm
[2020-06-16] MEDS: polyethylene glycoL 3350 17 GM POWD.PACK PO (17:38)
[2020-06-16 20:00] VITALS: BP 119/56; PULSE 95; RESP 20; TEMP 36.7; O2SAT 95
[2020-06-17] VITALS (11 sets, daily range): BP systolic 104–121; BP diastolic 47–68; PULSE 70–93; RESP 18–20; TEMP 36.4–37.2; O2SAT 87–97
[2020-06-17] MEDS: ENOXAPARIN 100 MG/ML SYRINGE SUB-Q ×2 (05:45→20:07)
[2020-06-17] MEDS: GABAPENTIN 100 MG CAPSULE PO ×3 (05:46→20:16)
[2020-06-17] MEDS: hydrALAZINE HCL 25 MG TABLET PO ×2 (08:45→20:07)
[2020-06-17] MEDS: DEXAMETHASONE SOD PHOS INJ 4 MG/ML VIAL 6 MG IV PUSH (08:46)
[2020-06-17] MEDS: ASPIRIN 81 MG ENTERIC TABLET PO (08:46)
[2020-06-17] MEDS: FLUTICASONE/SALMETEROL 115-21 MCG (*SP) INHALER 2 PUFF INHALATION ×2 (08:46→20:16)
[2020-06-17] MEDS: BENZONATATE 100 MG CAPSULE PO ×3 (08:46→20:06)
[2020-06-17] MEDS: FINASTERIDE 5 MG TABLET PO (08:47)
[2020-06-17] MEDS: LOSARTAN POTASSIUM 100 MG TABLET PO (08:48)
[2020-06-17] MEDS: FUROSEMIDE 40 MG TABLET PO ×2 (08:48→20:07)
[2020-06-17] MEDS: OMEGA 3 POLYUNSAT FATTY ACIDS 1 GM CAP PO ×2 (08:48→20:07)
[2020-06-17] MEDS: PRAVASTATIN SODIUM 20 MG TABLET 40 MG PO (08:49)
[2020-06-17] MEDS: SPIRONOLACTONE 12.5 MG TABLET PO (08:49)
[2020-06-17] MEDS: TAMSULOSIN HCL 0.4 MG CAPSULE PO (08:50)
--- NOTE | 2020-06-17 11:15 | PCNWS ---
Weekly nutritional screen. Patient is tolerating current diet. Patient reports having a decreased appetite but is consuming Ensure Enlive TID providing an additional 350 calories and 20 grams of protein. No weight loss reported. No nutritional needs at this time.
--- NOTE | 2020-06-17 11:42 | WPDINFPN2 ---
Progress Note: A&P Assessment and Plan (1) Pneumonia due to COVID-19 virus: Code(s): U07.1 - COVID-19; J12.82 - Pneumonia due to coronavirus disease 2019 Status: Acute Assessment and Plan: 1. CoVid 19 viral pneumonia. stable, on [place] O2. 2. Recent H zoster with PHN, not ijn need of antiviral therapy. No worsening in his exam despite being on steroids REC No antimicrobials needed. Continue 10 day course of dexamethasone. Also on gabapentin. No CCP no remdesivir nor tocilizumab. Will sign off thanks Subjective Date/time seen: 06/17/20 11:42 Interval history: feels a little less fatigued. Exam Narrative: Exam Narrative: afebrile, sat 89 % 5 lpm now normal on 7 lpm Const: General: no acute distress Eyes: General: appearance normal, both eyes and all related structures Resp: Effort & Inspection: normal respiratory effort Auscultation: clear to auscultation bilaterally Cardio: Rate: regular rate Rhythm: regular rhythm Heart sounds: no gallops and no murmurs GI: Inspection: non-distended GI Palp: Yes Soft to palpation, No Tenderness to palpation present (GI) and No Guarding due to palpation present (GI) Skin: General skin exam: normal color and no rashes or lesions noted Objective Data Vital Signs Vital Signs: Vital Signs - 24 hr 06/16/20 12:00 06/16/20 16:00 06/16/20 20:00 Temperature 36.1 C L 36.1 C L 36.7 C Pulse Rate 96 81 95 Respiratory Rate 16 20 20 Blood Pressure 114/60 118/59 L 119/56 L Pulse Oximetry 94 96 95 06/17/20 00:00 06/17/20 03:48 06/17/20 06:09 Temperature 36.5 C 36.9 C Pulse Rate 74 70 Respiratory Rate 20 20 Blood Pressure 106/61 104/68 Pulse Oximetry 96 97 93 06/17/20 08:00 06/17/20 08:10 06/17/20 11:00 Temperature 36.9 C Pulse Rate 77 77 Respiratory Rate 18 18 Blood Pressure 115/65 Pulse Oximetry 97 97 87 L 06/17/20 11:07 Temperature Pulse Rate Respiratory Rate Blood Pressure Pulse Oximetry 91 Intake/Output Intake/Output: Intake & Output 06/14/20 06/15/20 06/16/20 06/17/20 23:59 23:59 23:59 23:59 Intake Total 1570 1370 1690 980 Output Total 625 Balance 1570 1370 1065 980 Meds/Results Medications: Active Medications Generic Name Dose Route Start Last Admin Trade Name Freq PRN Reason Stop Dose Admin Acetaminophen 325 mg 06/12/20 16:03 06/13/20 21:12 Acetaminophen 325 Mg Tablet PO 325 mg Q6H PRN Administration Mild Pain (1-3) or Fever Albuterol 4 puff 06/10/20 18:32 06/14/20 21:04 Albuterol Sulfate (*Sp) Aerosol 1 Puff INHALATION 4 puff Q4HRT PRN Administration Shortness Of Breath Aspirin 81 mg 06/11/20 09:00 06/17/20 08:46 Aspirin 81 Mg Enteric Tablet PO 81 mg DAILY MELISSA Administration Benzonatate 100 mg 06/12/20 18:05 06/17/20 08:46 Benzonatate 100 Mg Capsule PO 100 mg TID MELISSA Administration Dexamethasone Sodium Phosphate 6 mg 06/11/20 09:00 06/17/20 08:46 Dexamethasone Sod Phos Inj 4 Mg/Ml Vial IV PUSH 06/20/20 09:01 6 mg DAILY MELISSA Administration Enoxaparin Sodium 100 mg 06/11/20 06:00 06/17/20 05:45 Enoxaparin 100 Mg/Ml Syringe SUB-Q 100 mg Q12H MELISSA Administration Finasteride 5 mg 06/11/20 09:00 06/17/20 08:47 Finasteride 5 Mg Tablet PO 5 mg DAILY MELISSA Administration Fish Oil 1 gm 06/11/20 09:00 06/17/20 08:48 [place] 3 Polyunsat Fatty Acids 1 Gm Cap PO 1 gm BID MELISSA Administration Furosemide 40 mg 06/14/20 17:00 06/17/20 08:48 Furosemide 40 Mg Tablet PO 40 mg BID MELISSA Administration Gabapentin 100 mg 06/12/20 22:00 06/17/20 05:46 Gabapentin 100 Mg Capsule PO 100 mg Q8HR MELISSA Administration Hydralazine HCl 25 mg 06/11/20 08:00 06/17/20 08:45 Hydralazine Hcl 25 Mg Tablet PO 25 mg BIDWM MELISSA Administration Losartan Potassium 100 mg 06/11/20 09:00 06/17/20 08:48 Losartan Potassium 100 Mg Tablet PO 100 mg DAILY MELISSA Administration Menthol/Methyl Salicylate 1 applic 06/11/
--- NOTE | 2020-06-17 12:31 | PCNSR ---
On 06/17/20, the student, Louann Fagan, provided care and completed [facility] documentation on this patient. I have reviewed the student's documentation and agree with the findings.
--- NOTE | 2020-06-17 17:44 | PM.IMPN ---
Progress Note: A&P Assessment and Plan (1) Herpes zoster dermatitis: Code(s): B02.8 - Zoster with other complications; L30.8 - Other specified dermatitis Status: Acute Assessment and Plan: Improved Appreciate ID note (2) Respiratory failure with hypoxia: Qualifiers: Chronicity: acute Qualified Code(s): J96.01 - Acute respiratory failure with hypoxia Code(s): J96.91 - Respiratory failure, unspecified with hypoxia Status: Acute Assessment and Plan: Weaning off of oxygen. Likely secondary to Covid 19 infection. (3) Pneumonia due to COVID-19 virus: Code(s): U07.1 - COVID-19; J12.82 - Pneumonia due to coronavirus disease 2019 Status: Acute Assessment and Plan: Continue Dexamethasone Improved. (4) Chronic kidney disease, stage 3: Code(s): N18.30 - Chronic kidney disease, stage 3 unspecified Status: Acute Assessment and Plan: Continue to monitor Bun/cr Daily BMP (5) Type 2 diabetes mellitus with stage 3 chronic kidney disease: Code(s): E11.22 - Type 2 diabetes mellitus with diabetic chronic kidney disease; N18.3 - Chronic kidney disease, stage 3 (moderate) Status: Acute Assessment and Plan: Accu checks ACHS ISS as needed (6) Uncomplicated asthma: Code(s): J45.909 - Unspecified asthma, uncomplicated Status: Acute Assessment and Plan: Breathing treatments. Subjective Date/time seen: 06/17/20 17:44 Patient states that he feels much better. Review of Systems Review of Systems: Narrative: No new issues overnight. Constitutional: Comments: no fevers, no chills, no rigors. Eyes: Comments: no vision changes. Cardiovascular: Comments: no chest pain. Respiratory: Comments: mild sob. Gastrointestinal: Comments: no n/v/abdominal pain. Musculoskeletal: Comments: no joint pain. Integumentary/Breasts: Comments: no rashes. Neurologic: Comments: no sensory motor deficit. Exam Narrative: Exam Narrative: Lying in bed. Const: General: comfortable, no acute distress, awake and Physically active Nutritional Appearance: average body habitus Orientation/consciousness: patient oriented x3 HENMT: Head: normocephalic Ears: hearing grossly normal bilaterally Face and sinus: normal facial exam Eyes: Pupils: Equal, round and reactive pupils present EOM: EOMs intact bilaterally Neck: Neck: no lymphadenopathy, supple and no JVD Resp: Auscultation: diminished lung sounds Cardio: Jugular venous distension: no JVD Rate: regular rate Rhythm: regular rhythm GI: GI Palp: Yes Soft to palpation and Yes No hepatosplenomegaly present Skin: Wounds: no wounds Neuro: General: patient oriented x3 Cranial nerves: Yes CN's II-XII intact bilaterally and Yes Equal, round and reactive pupils present Cognition (Neuro): normal cognition Speech: normal speech Motor exam (neuro): 5/5 motor strength present throughout Extrem: General: no pedal edema Objective Data Vital Signs Vital Signs: Vital Signs - 24 hr 06/16/20 20:00 06/17/20 00:00 06/17/20 03:48 Temperature 98.1 F 97.7 F 98.4 F Pulse Rate 95 74 70 Respiratory Rate 20 20 20 Blood Pressure 119/56 L 106/61 104/68 Pulse Oximetry 95 96 97 06/17/20 06:09 06/17/20 08:00 06/17/20 08:10 Temperature 98.4 F Pulse Rate 77 77 Respiratory Rate 18 18 Blood Pressure 115/65 Pulse Oximetry 93 97 97 06/17/20 11:00 06/17/20 11:07 06/17/20 12:00 Temperature 99.0 F Pulse Rate 91 Respiratory Rate 18 Blood Pressure 121/52 L Pulse Oximetry 87 L 91 94 06/17/20 16:13 Temperature 98.1 F Pulse Rate 93 Respiratory Rate 18 Blood Pressure 106/47 L Pulse Oximetry 92 Intake/Output Intake/Output: Intake & Output 06/14/20 06/15/20 06/16/20 06/17/20 23:59 23:59 23:59 23:59 Intake Total 1570 1370 1690 1220 Output Total 625 Balance 1570 1370 1065 1220 Meds/Results Medications: Active Medications Generic Name Dose R
[2020-06-17] MEDS: polyethylene glycoL 3350 17 GM POWD.PACK PO (20:07)
[2020-06-18] VITALS (9 sets, daily range): BP systolic 107–129; BP diastolic 51–73; PULSE 71–99; RESP 20–22; TEMP 36.5–36.9; O2SAT 90–93
[2020-06-18] MEDS: GABAPENTIN 100 MG CAPSULE PO ×3 (06:32→20:05)
[2020-06-18] MEDS: ENOXAPARIN 100 MG/ML SYRINGE SUB-Q ×2 (06:32→17:34)
[2020-06-18] MEDS: LOSARTAN POTASSIUM 100 MG TABLET PO (08:08)
[2020-06-18] MEDS: FUROSEMIDE 40 MG TABLET PO ×2 (08:08→17:34)
[2020-06-18] MEDS: FINASTERIDE 5 MG TABLET PO (08:08)
[2020-06-18] MEDS: OMEGA 3 POLYUNSAT FATTY ACIDS 1 GM CAP PO ×2 (08:08→17:34)
[2020-06-18] MEDS: ASPIRIN 81 MG ENTERIC TABLET PO (08:08)
[2020-06-18] MEDS: SPIRONOLACTONE 12.5 MG TABLET PO (08:08)
[2020-06-18] MEDS: TAMSULOSIN HCL 0.4 MG CAPSULE PO (08:08)
[2020-06-18] MEDS: DEXAMETHASONE SOD PHOS INJ 4 MG/ML VIAL 6 MG IV PUSH (08:08)
[2020-06-18] MEDS: BENZONATATE 100 MG CAPSULE PO ×3 (08:08→17:34)
[2020-06-18] MEDS: PRAVASTATIN SODIUM 20 MG TABLET 40 MG PO (08:08)
[2020-06-18] MEDS: hydrALAZINE HCL 25 MG TABLET PO ×2 (08:08→17:34)
[2020-06-18] MEDS: FLUTICASONE/SALMETEROL 115-21 MCG (*SP) INHALER 2 PUFF INHALATION ×2 (08:17→20:05)
--- NOTE | 2020-06-18 17:40 | PM.IMPN ---
Progress Note: A&P Assessment and Plan (1) Pneumonia due to COVID-19 virus: Code(s): U07.1 - COVID-19; J12.82 - Pneumonia due to coronavirus disease 2019 Status: Acute Assessment and Plan: Continue Dexamethasone Requiring 7 L of O2 Will repeat chest xr in am (2) Respiratory failure with hypoxia: Qualifiers: Chronicity: acute Qualified Code(s): J96.01 - Acute respiratory failure with hypoxia Code(s): J96.91 - Respiratory failure, unspecified with hypoxia Status: Acute Assessment and Plan: Continue supplemental O2. (3) CHF (congestive heart failure): Code(s): I50.9 - Heart failure, unspecified Status: Acute Assessment and Plan: Continue to monitor I/O's (4) Herpes zoster dermatitis: Code(s): B02.8 - Zoster with other complications; L30.8 - Other specified dermatitis Status: Acute Assessment and Plan: Stable Appreciate ID note (5) Chronic kidney disease, stage 3: Code(s): N18.30 - Chronic kidney disease, stage 3 unspecified Status: Acute Assessment and Plan: Continue to monitor BMP in am 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: Code(s): E11.22 - Type 2 diabetes mellitus with diabetic chronic kidney disease; N18.3 - Chronic kidney disease, stage 3 (moderate) Status: Acute Assessment and Plan: Continue to monitor Subjective Date/time seen: 06/18/20 17:40 States that feels much better. Review of Systems Review of Systems: Narrative: No new issues overnight. Constitutional: Comments: no fevers, no rigors, no chills. Cardiovascular: Comments: no pnd, no orhtopnea. Respiratory: Comments: sob, cough Gastrointestinal: Comments: no n/v/abdominal pain. Musculoskeletal: Comments: no joint enlargement. Exam Narrative: Exam Narrative: Lying in bed Const: General: comfortable, no acute distress, alert, awake, Physically active and other (On oxygen by NC.) Nutritional Appearance: average body habitus Orientation/consciousness: patient oriented x3 HENMT: Head: normal to inspection and normocephalic General nose exam: Normal external nose present Face and sinus: normal facial exam Eyes: General: appearance normal, both eyes and all related structures Pupils: Equal, round and reactive pupils present EOM: EOMs intact bilaterally Neck: Neck: no lymphadenopathy, supple and no JVD Resp: Auscultation: diminished lung sounds Cardio: Jugular venous distension: no JVD Rate: regular rate Rhythm: regular rhythm GI: GI Palp: Yes Soft to palpation and Yes No hepatosplenomegaly present Skin: Rashes: no rashes Wounds: no wounds Neuro: General: patient oriented x3 and CN's II-XI intact bilaterally Cranial nerves: Yes CN's II-XII intact bilaterally and Yes Equal, round and reactive pupils present Motor exam (neuro): 5/5 motor strength present throughout Extrem: General: no pedal edema Objective Data Vital Signs Vital Signs: Vital Signs - 24 hr 06/17/20 20:00 06/17/20 22:03 06/18/20 00:00 Temperature 97.5 F L 97.8 F Pulse Rate 89 75 Respiratory Rate 20 20 Blood Pressure 114/64 112/62 Pulse Oximetry 91 91 92 06/18/20 04:00 06/18/20 08:00 06/18/20 08:10 Temperature 97.7 F 98.0 F Pulse Rate 71 80 Respiratory Rate 20 20 Blood Pressure 119/73 129/69 Pulse Oximetry 93 92 92 06/18/20 08:25 06/18/20 12:00 06/18/20 14:33 Temperature 98.4 F Pulse Rate 92 Respiratory Rate 20 Blood Pressure 107/51 L Pulse Oximetry 91 90 92 06/18/20 16:00 Temperature 98.3 F Pulse Rate 95 Respiratory Rate 20 Blood Pressure 122/57 L Pulse Oximetry 90 Intake/Output Intake/Output: Intake & Output 06/15/20 06/16/20 06/17/20 06/18/20 23:59 23:59 23:59 23:59 Intake Total 1370 1690 1890 1340 Output Total 625 Balance 1370 1065 1890 1340 Meds/Results Medications: Active Medications Generic Name Dose Route Start Last Admin Trade Nam
[2020-06-19] VITALS (7 sets, daily range): BP systolic 103–127; BP diastolic 49–70; PULSE 77–106; RESP 20–22; TEMP 36.3–37.1; O2SAT 91–98
[2020-06-19] MEDS: GABAPENTIN 100 MG CAPSULE PO ×3 (05:09→21:48)
[2020-06-19] MEDS: ENOXAPARIN 100 MG/ML SYRINGE SUB-Q ×2 (05:09→17:14)
[2020-06-19 06:43] LABS: Anion Gap 6 mmol/L (8-16); Blood Urea Nitrogen 63 mg/dL (9-20); Calcium 8.8 mg/dL (8.4-10.2); Carbon Dioxide 30 mmol/L (22-30); Chloride 99 mmol/L (98-107); Estimated CRCL calculation 59 ml/min; Estimated Glomerular Filt Rate > 60; Glucose 201 mg/dL (75-110); Potassium 4.5 mmol/L (3.4-5.0); Sodium 135 mmol/L (137-145)
[2020-06-19 07:51] LABS: Hematocrit 39.9 % (42.0-52.0); Hemoglobin 13.2 g/dL (14.0-18.0); Mean Corpuscular HGB Conc 33.1 g/dl (32-36); Mean Corpuscular Volume 96.8 fl (80-100); Mean Platelet Volume 10.1 fl (7.4-10.4); Platelet Count Result 442 k/mm3 (150-375); Red Blood Count 4.12 M/mm3 (4.6-6.20); Red Cell Distribution Width 13.9 % (11.5-14.5); White Blood Count 15.3 K/mm3 (4.5-10.0)
[2020-06-19 08:19] LABS: Anisocytosis 1+ (NORMAL); Band Neutrophils Percent 1 % (0-6); Hypochromasia 1+ (NORMAL); Monocytes Absolute Manual 0.61 K/mm3 (0.1-0.90); Monocytes Percent Manual 4 % (3-9); Neutrophils Absolute Manual 12.08 K/mm3 (1.3-6.7); Neutrophils Percent Manual 78 % (46-73); Ovalocytes 1+ (NORMAL); Platelet Estimate Adequate (Adequate); Total Cells Counted 100
[2020-06-19] MEDS: PRAVASTATIN SODIUM 20 MG TABLET 40 MG PO (09:21)
[2020-06-19] MEDS: FINASTERIDE 5 MG TABLET PO (09:22)
[2020-06-19] MEDS: ASPIRIN 81 MG ENTERIC TABLET PO (09:23)
[2020-06-19] MEDS: FLUTICASONE/SALMETEROL 115-21 MCG (*SP) INHALER 2 PUFF INHALATION ×2 (09:23→21:48)
[2020-06-19] MEDS: hydrALAZINE HCL 25 MG TABLET PO ×2 (09:23→17:15)
[2020-06-19] MEDS: BENZONATATE 100 MG CAPSULE PO ×3 (09:23→17:13)
[2020-06-19] MEDS: OMEGA 3 POLYUNSAT FATTY ACIDS 1 GM CAP PO ×2 (09:24→17:14)
[2020-06-19] MEDS: TAMSULOSIN HCL 0.4 MG CAPSULE PO (09:24)
[2020-06-19] MEDS: FUROSEMIDE 40 MG TABLET PO ×2 (09:24→17:15)
[2020-06-19] MEDS: LOSARTAN POTASSIUM 100 MG TABLET PO (09:24)
[2020-06-19] MEDS: SPIRONOLACTONE 12.5 MG TABLET PO (09:24)
[2020-06-19] MEDS: DEXAMETHASONE SOD PHOS INJ 4 MG/ML VIAL 6 MG IV PUSH (09:24)
--- NOTE | 2020-06-19 11:55 | PCOTNOTE ---
Attempted to see patient this am, however patient declined. Pt reported already completing ADLs and refused activity out of bed. RN notified.
[2020-06-19] MEDS: ONDANSETRON INJ 4 MG/2 ML VIAL IV PUSH (12:30)
--- NOTE | 2020-06-19 16:13 | PM.IMPN ---
Progress Note: A&P Assessment and Plan (1) Respiratory failure with hypoxia: Qualifiers: Chronicity: acute Qualified Code(s): J96.01 - Acute respiratory failure with hypoxia Code(s): J96.91 - Respiratory failure, unspecified with hypoxia Status: Acute Assessment and Plan: Currently on HFNC Continue to wean off of as needed (2) Pneumonia due to COVID-19 virus: Code(s): U07.1 - COVID-19; J12.82 - Pneumonia due to coronavirus disease 2018 Status: Acute Assessment and Plan: Continue Dexamethasone Not on Remdesivir Clinically no worsening (3) Chronic kidney disease, stage 3: Code(s): N18.30 - Chronic kidney disease, stage 3 unspecified Status: Acute Assessment and Plan: Continue to monitor Bun/Cr Daily BMP (4) Type 2 diabetes mellitus with stage 3 chronic kidney disease: Code(s): E11.22 - Type 2 diabetes mellitus with diabetic chronic kidney disease; N18.3 - Chronic kidney disease, stage 3 (moderate) Status: Acute Assessment and Plan: Carb consistent diet Accu checks ACHS Subjective Date/time seen: 06/19/20 16:13 Patient states that he feels better. Review of Systems Review of Systems: Narrative: Patient with no complains Constitutional: Comments: no chills, no rigors, no fevers. ENT: Comments: nsal congestion. Cardiovascular: Comments: no chest pain. Respiratory: Comments: sob, no sputum production. Gastrointestinal: Comments: no n/v/abdominal pain Musculoskeletal: Comments: no joint pain. Integumentary/Breasts: Comments: no rashes Neurologic: Comments: no sensory motor deficit Exam Narrative: Exam Narrative: Lying in bed. Const: General: comfortable, no acute distress, alert, awake and Physically active Nutritional Appearance: average body habitus Orientation/consciousness: patient oriented x3 Limitations: no limitations HENMT: Head: normal to inspection and normocephalic Face and sinus: normal facial exam Eyes: General: appearance normal, both eyes and all related structures Pupils: Equal, round and reactive pupils present EOM: EOMs intact bilaterally Neck: Neck: no lymphadenopathy, supple and no JVD Resp: Auscultation: clear to auscultation bilaterally Cardio: Jugular venous distension: no JVD Rate: regular rate Rhythm: regular rhythm GI: GI Palp: Yes Soft to palpation and Yes No hepatosplenomegaly present Skin: Wounds: no wounds Neuro: General: patient oriented x3 and CN's II-XI intact bilaterally Cranial nerves: Yes CN's II-XII intact bilaterally and Yes Bilaterally intact EOM present Cognition (Neuro): normal cognition Motor exam (neuro): 5/5 motor strength present throughout Extrem: General: no pedal edema Objective Data Vital Signs Vital Signs: Vital Signs - 24 hr 06/18/20 20:00 06/19/20 00:00 06/19/20 04:00 Temperature 97.8 F 98.2 F 98.7 F Pulse Rate 99 86 77 Respiratory Rate 22 H 22 H 22 H Blood Pressure 121/73 124/70 127/70 Pulse Oximetry 93 93 92 06/19/20 08:00 06/19/20 12:00 06/19/20 13:51 Temperature 98.4 F 97.7 F Pulse Rate 84 103 H 106 H Respiratory Rate 20 20 20 Blood Pressure 120/59 L 116/58 L Pulse Oximetry 91 95 98 06/19/20 16:00 Temperature 97.4 F L Pulse Rate 90 Respiratory Rate 20 Blood Pressure 103/49 L Pulse Oximetry 97 Intake/Output Intake/Output: Intake & Output 06/16/20 06/17/20 06/18/20 06/19/20 23:59 23:59 23:59 23:59 Intake Total 1690 1890 2800 690 Output Total 625 400 Balance 1065 1890 2800 290 Meds/Results Medications: Active Medications Generic Name Dose Route Start Last Admin Trade Name Freq PRN Reason Stop Dose Admin Acetaminophen 325 mg 06/12/20 16:03 06/13/20 21:12 Acetaminophen 325 Mg Tablet PO 325 mg Q6H PRN Administration Mild Pain (1-3) or Fever Albuterol 4 puff 06/10/20 18:32 06/14/20 21:04 Albuterol Sulfate (*Sp) Aerosol 1 Puff INHALATION 4 puff Q4HRT PRN Administration
[2020-06-19] MEDS: polyethylene glycoL 3350 17 GM POWD.PACK PO (17:14)
[2020-06-20] VITALS (13 sets, daily range): BP systolic 112–133; BP diastolic 54–67; PULSE 76–100; RESP 18–20; TEMP 36.1–37.1; O2SAT 90–97
[2020-06-20] MEDS: ENOXAPARIN 100 MG/ML SYRINGE SUB-Q ×2 (05:44→16:40)
[2020-06-20] MEDS: GABAPENTIN 100 MG CAPSULE PO ×3 (05:47→22:07)
[2020-06-20] MEDS: OMEGA 3 POLYUNSAT FATTY ACIDS 1 GM CAP PO ×2 (08:30→16:40)
[2020-06-20] MEDS: SPIRONOLACTONE 12.5 MG TABLET PO (08:30)
[2020-06-20] MEDS: PRAVASTATIN SODIUM 20 MG TABLET 40 MG PO (08:30)
[2020-06-20] MEDS: BENZONATATE 100 MG CAPSULE PO ×2 (08:30→16:40)
[2020-06-20] MEDS: FUROSEMIDE 40 MG TABLET PO ×2 (08:31→16:41)
[2020-06-20] MEDS: hydrALAZINE HCL 25 MG TABLET PO ×2 (08:31→16:40)
[2020-06-20] MEDS: LOSARTAN POTASSIUM 100 MG TABLET PO (08:31)
[2020-06-20] MEDS: TAMSULOSIN HCL 0.4 MG CAPSULE PO (08:31)
[2020-06-20] MEDS: ASPIRIN 81 MG ENTERIC TABLET PO (08:31)
[2020-06-20] MEDS: FINASTERIDE 5 MG TABLET PO (08:31)
[2020-06-20] MEDS: FLUTICASONE/SALMETEROL 115-21 MCG (*SP) INHALER 2 PUFF INHALATION ×2 (08:32→20:16)
[2020-06-20] MEDS: DEXAMETHASONE SOD PHOS INJ 4 MG/ML VIAL 6 MG IV PUSH (11:45)
--- NOTE | 2020-06-20 18:40 | PM.IMPN ---
Progress Note: A&P Assessment and Plan (1) Respiratory failure with hypoxia: Qualifiers: Chronicity: acute Qualified Code(s): J96.01 - Acute respiratory failure with hypoxia Code(s): J96.91 - Respiratory failure, unspecified with hypoxia Status: Acute Assessment and Plan: Patient requiring HFNC Will place on BiPAP overnight (2) Pneumonia due to COVID-19 virus: Code(s): U07.1 - COVID-19; J12.82 - Pneumonia due to coronavirus disease 2019 Status: Acute Assessment and Plan: Added Cefepime for probable bacterial pneumonia superimposed Chest xr has been reviewed with worsening infiltartes Slight elevation of Lactic acid Will give fluids gently Re assess respiratory distress (3) Acute kidney injury superimposed on CKD: Code(s): N17.9 - Acute kidney failure, unspecified; N18.9 - Chronic kidney disease, unspecified Status: Acute Assessment and Plan: Holding Lasix, Spironolactone, Losartan, Hydralazine. Repeat BMP in am Suspect pre renal due to diuresis (4) Chronic kidney disease, stage 3: Code(s): N18.30 - Chronic kidney disease, stage 3 unspecified Status: Acute Assessment and Plan: Will repeat BMP in am (5) Type 2 diabetes mellitus with stage 3 chronic kidney disease: Code(s): E11.22 - Type 2 diabetes mellitus with diabetic chronic kidney disease; N18.3 - Chronic kidney disease, stage 3 (moderate) Status: Acute Assessment and Plan: Accu checks ACHS ISS as needed Subjective Date/time seen: 06/20/20 18:40 Patient states that he feels well when initially seen early in the morning. Having breakfast denied any issues Review of Systems Review of Systems: Narrative: denies any complains. Constitutional: Comments: no fevers, no rigors, no chills. Cardiovascular: Comments: no chest pain, no leg swelling. Respiratory: Comments: mild sob. Gastrointestinal: Comments: no n/v/abdominal pain. Musculoskeletal: Comments: no joint pain. Integumentary/Breasts: Comments: no rashes Neurologic: Comments: no sensory motor deficit Exam Narrative: Exam Narrative: Patient is sitting in bed. Const: General: comfortable, alert, awake and Physically active Nutritional Appearance: average body habitus Orientation/consciousness: patient oriented x3 HENMT: Head: normal to inspection and normocephalic Face and sinus: normal facial exam Eyes: Pupils: Equal, round and reactive pupils present EOM: EOMs intact bilaterally Neck: Neck: no lymphadenopathy, supple and no JVD Resp: Effort & Inspection: able to speak in complete sentences Auscultation: clear to auscultation bilaterally and diminished lung sounds Cardio: Jugular venous distension: no JVD Rate: regular rate Rhythm: regular rhythm GI: GI Palp: Yes Soft to palpation and Yes No hepatosplenomegaly present Skin: Rashes: no rashes Neuro: Cranial nerves: Yes CN's II-XII intact bilaterally and Yes Equal, round and reactive pupils present Cognition (Neuro): normal cognition Speech: normal speech Motor exam (neuro): 5/5 motor strength present throughout Extrem: General: no pedal edema Objective Data Vital Signs Vital Signs: Vital Signs - 24 hr 06/19/20 20:00 06/20/20 00:00 06/20/20 04:00 Temperature 97.3 F L 97.0 F L 97.5 F L Pulse Rate 88 84 79 Respiratory Rate 22 H 20 20 Blood Pressure 113/56 L 133/58 L 127/64 Pulse Oximetry 96 94 97 06/20/20 06:35 06/20/20 08:00 06/20/20 08:25 Temperature 98.7 F Pulse Rate 76 Respiratory Rate 18 Blood Pressure 122/67 Pulse Oximetry 97 93 95 06/20/20 10:45 06/20/20 12:00 06/20/20 16:00 Temperature 98.4 F 98.8 F Pulse Rate 100 93 Respiratory Rate 18 18 Blood Pressure 112/57 L 113/54 L Pulse Oximetry 91 91 97 06/20/20 16:10 06/20/20 16:46 Temperature Pulse Rate Respiratory Rate Blood Pressure Pulse Oximetry 94 95 Intake/Output Intake/Output: Intake & Output 06/17/20
[2020-06-21] VITALS (11 sets, daily range): BP systolic 73–116; BP diastolic 38–64; PULSE 81–112; RESP 18–24; TEMP 36.4–36.7; O2SAT 82–100
[2020-06-21] MEDS: GABAPENTIN 100 MG CAPSULE PO ×3 (05:47→22:12)
[2020-06-21] MEDS: ENOXAPARIN 100 MG/ML SYRINGE SUB-Q ×2 (05:47→18:01)
--- NOTE | 2020-06-21 08:33 | PCOTNOTE ---
Patient not seen this date due to frequency orders. Will plan to continue treatment per plan of care tomorrow.
[2020-06-21] MEDS: OMEGA 3 POLYUNSAT FATTY ACIDS 1 GM CAP PO ×2 (09:30→18:01)
[2020-06-21] MEDS: hydrALAZINE HCL 25 MG TABLET PO (09:30)
[2020-06-21] MEDS: FUROSEMIDE 40 MG TABLET PO (09:30)
[2020-06-21] MEDS: BENZONATATE 100 MG CAPSULE PO ×3 (09:30→18:00)
[2020-06-21] MEDS: LOSARTAN POTASSIUM 100 MG TABLET PO (11:27)
[2020-06-21] MEDS: ASPIRIN 81 MG ENTERIC TABLET PO (11:27)
[2020-06-21] MEDS: FINASTERIDE 5 MG TABLET PO (11:27)
[2020-06-21] MEDS: FLUTICASONE/SALMETEROL 115-21 MCG (*SP) INHALER 2 PUFF INHALATION ×2 (11:27→20:31)
[2020-06-21] MEDS: TAMSULOSIN HCL 0.4 MG CAPSULE PO (11:28)
[2020-06-21] MEDS: PRAVASTATIN SODIUM 20 MG TABLET 40 MG PO (11:28)
[2020-06-21] MEDS: SPIRONOLACTONE 12.5 MG TABLET PO (11:28)
[2020-06-21] MEDS: SODIUM CHLORIDE 0.9% IV 250 ML ×2 (13:00→15:30)
[2020-06-21 14:04] LABS: Basophils Absolute Auto 0.1 K/mm3 (0.0-0.1); Basophils Percent Auto 0.4 % (0.2-1.2); Eosinophils Absolute Auto 0.1 K/mm3 (0-0.3); Eosinophils Percent Auto 0.8 % (0-4.4); Hemoglobin 13.1 g/dL (14.0-18.0); Immature Granulocyte Absolute 0.86 K/mm3 (0.00-0.031); Immature Granulocyte Percent A 5.4 % (0-0.5); Lymphocytes Absolute Auto 3.07 K/mm3 (0.9-3.2); Lymphocytes Percent Auto 19.1 % (18.3-44.2); Mean Corpuscular Hemoglobin 30.9 pg (26-34); Mean Corpuscular Volume 96.7 fl (80-100); Monocytes Absolute Auto 0.9 K/mm3 (0.1-0.6); Monocytes Percent Auto 5.5 % (2.6-8.5); Neutrophils Absolute Auto 11.1 K/mm3 (1.3-6.7); Neutrophils Percent Auto 68.8 % (45.5-73.1); Platelet Count Result 455 k/mm3 (150-375); Red Blood Count 4.24 M/mm3 (4.6-6.20); Red Cell Distribution Width 13.7 % (11.5-14.5); White Blood Count 16.1 K/mm3 (4.5-10.0)
[2020-06-21 14:19] LABS: Anion Gap 6 mmol/L (8-16); Blood Urea Nitrogen 75 mg/dL (9-20); Calcium 8.9 mg/dL (8.4-10.2); Carbon Dioxide 35 mmol/L (22-30); Chloride 94 mmol/L (98-107); Estimated CRCL calculation 34 ml/min; Estimated Glomerular Filt Rate 32; Glucose 314 mg/dL (75-110); Potassium 4.5 mmol/L (3.4-5.0); Sodium 135 mmol/L (137-145)
[2020-06-21 14:21] LABS: Lactic Acid Reflex 3.2 mmol/L (0.7-2.1)
--- NOTE | 2020-06-21 14:51 | PCPTNOTE ---
Per RN no out of bed activity due to low blood pressure (80/41). Patient refused LE exercises in bed. Will continue per Plan of Care frequency and duration.
[2020-06-21] MEDS: SODIUM CHLORIDE 0.9% IV 1,000 ML 75 ML IV CONT (16:08)
[2020-06-21 17:02] LABS: Reflex Lactic Acid Yes or No Add Lactic
[2020-06-21 17:40] LABS: Lactic Acid 1.8 mmol/L (0.7-2.1)
[2020-06-21] MEDS: polyethylene glycoL 3350 17 GM POWD.PACK PO (20:30)
[2020-06-22] VITALS (7 sets, daily range): BP systolic 112–145; BP diastolic 60–83; PULSE 78–110; RESP 18–22; TEMP 36.4–36.9; O2SAT 90–100
[2020-06-22] MEDS: SODIUM CHLORIDE 0.9% IV 1,000 ML 75 ML IV CONT ×2 (04:44→18:04)
[2020-06-22] MEDS: GABAPENTIN 100 MG CAPSULE PO ×3 (05:47→21:51)
[2020-06-22] MEDS: ENOXAPARIN 100 MG/ML SYRINGE SUB-Q ×2 (05:47→19:33)
[2020-06-22] MEDS: FLUTICASONE/SALMETEROL 115-21 MCG (*SP) INHALER 2 PUFF INHALATION ×2 (09:32→20:27)
[2020-06-22] MEDS: ASPIRIN 81 MG ENTERIC TABLET PO (09:32)
[2020-06-22] MEDS: BENZONATATE 100 MG CAPSULE PO ×3 (09:33→19:32)
[2020-06-22] MEDS: OMEGA 3 POLYUNSAT FATTY ACIDS 1 GM CAP PO ×2 (09:33→19:33)
[2020-06-22] MEDS: FINASTERIDE 5 MG TABLET PO (09:33)
[2020-06-22] MEDS: TAMSULOSIN HCL 0.4 MG CAPSULE PO (09:34)
[2020-06-22] MEDS: PRAVASTATIN SODIUM 20 MG TABLET 40 MG PO (09:34)
--- NOTE | 2020-06-22 15:22 | PM.IMPN ---
Progress Note: A&P Assessment and Plan (1) Pneumonia due to COVID-19 virus: Code(s): U07.1 - COVID-19; J12.82 - Pneumonia due to coronavirus disease 2019 Status: Acute Assessment and Plan: Remdesivir/Dexamethasone Clinically improved Added Cefepime as repeat XR with worsening infiltrates and prolonged hospital stay. (2) Respiratory failure with hypoxia: Qualifiers: Chronicity: acute Qualified Code(s): J96.01 - Acute respiratory failure with hypoxia Code(s): J96.91 - Respiratory failure, unspecified with hypoxia Status: Acute Assessment and Plan: On HFNC BiPAP at night time (3) Herpes zoster dermatitis: Code(s): B02.8 - Zoster with other complications; L30.8 - Other specified dermatitis Status: Acute Assessment and Plan: Resolved (4) Acute kidney injury superimposed on CKD: Code(s): N17.9 - Acute kidney failure, unspecified; N18.9 - Chronic kidney disease, unspecified Status: Acute Assessment and Plan: Continue to monitor BMP in am (5) Type 2 diabetes mellitus with stage 3 chronic kidney disease: Code(s): E11.22 - Type 2 diabetes mellitus with diabetic chronic kidney disease; N18.3 - Chronic kidney disease, stage 3 (moderate) Status: Acute Assessment and Plan: Accuchecks ACHS ISS as needed ADA diet Subjective Date/time seen: 06/22/20 15:22 I feel better Review of Systems Review of Systems: Narrative: no new issues. Constitutional: Comments: no fever, no rigors, no chills. Cardiovascular: Comments: no pnd, no orthopnea Respiratory: Comments: mild sob. Gastrointestinal: Comments: no n/v/abdominal pain Musculoskeletal: Comments: no joint pain Integumentary/Breasts: Comments: no rashes Neurologic: Comments: no sensory motor deficit Exam Narrative: Exam Narrative: Lying in bed Const: General: cooperative, no acute distress, alert and awake Nutritional Appearance: well nourished Orientation/consciousness: patient oriented x3 HENMT: Head: normocephalic Ears: hearing grossly normal bilaterally Face and sinus: normal facial exam Mouth: Yes Normal oral and palatal mucosa present Eyes: General: appearance normal, both eyes and all related structures Pupils: Equal, round and reactive pupils present EOM: EOMs intact bilaterally Neck: Neck: no lymphadenopathy, supple and no JVD Resp: Auscultation: diminished lung sounds Cardio: Rate: regular rate Rhythm: regular rhythm GI: GI Palp: Yes Soft to palpation and Yes No hepatosplenomegaly present Skin: Rashes: no rashes Wounds: no wounds Neuro: General: patient oriented x3 and CN's II-XI intact bilaterally Cranial nerves: Yes CN's II-XII intact bilaterally and Yes Equal, round and reactive pupils present Speech: normal speech Motor exam (neuro): 5/5 motor strength present throughout Extrem: General: no pedal edema Objective Data Vital Signs Vital Signs: Vital Signs - 24 hr 06/21/20 16:00 06/21/20 17:30 06/21/20 20:00 Temperature 98.0 F 97.5 F L Pulse Rate 102 H 100 81 Respiratory Rate 18 20 20 Blood Pressure 90/38 L 116/60 111/63 Pulse Oximetry 96 96 96 06/21/20 23:22 06/22/20 00:00 06/22/20 04:00 Temperature 98.1 F 97.7 F Pulse Rate 78 80 Respiratory Rate 22 H 20 Blood Pressure 133/83 134/66 Pulse Oximetry 95 100 90 06/22/20 08:00 06/22/20 12:00 Temperature 98.4 F 97.8 F Pulse Rate 89 105 H Respiratory Rate 18 18 Blood Pressure 135/66 112/60 Pulse Oximetry 97 95 Intake/Output Intake/Output: Intake & Output 06/19/20 06/20/20 06/21/20 06/22/20 23:59 23:59 23:59 23:59 Intake Total 1500 1560 1050 1750 Output Total 800 1950 1400 900 Balance 700 -390 -350 850 Meds/Results Medications: Active Medications Generic Name Dose Route Start Last Admin Trade Name Freq PRN Reason Stop Dose Admin Acetaminophen 325 mg 06/12/20 16:03 06/13/20 21:12 Acetaminophen 325 Mg Tablet PO 325 mg Q6H
[2020-06-22] MEDS: polyethylene glycoL 3350 17 GM POWD.PACK PO (19:33)
[2020-06-23] VITALS (9 sets, daily range): BP systolic 104–138; BP diastolic 46–73; PULSE 77–93; RESP 20–24; TEMP 36.4–37.1; O2SAT 88–96
[2020-06-23] MEDS: GABAPENTIN 100 MG CAPSULE PO ×3 (05:33→22:09)
[2020-06-23] MEDS: ENOXAPARIN 100 MG/ML SYRINGE SUB-Q ×2 (05:33→17:06)
[2020-06-23] MEDS: SODIUM CHLORIDE 0.9% IV 1,000 ML 75 ML IV CONT ×2 (07:01→18:45)
[2020-06-23] MEDS: BENZONATATE 100 MG CAPSULE PO ×3 (09:07→17:06)
[2020-06-23] MEDS: ASPIRIN 81 MG ENTERIC TABLET PO (09:07)
[2020-06-23] MEDS: FINASTERIDE 5 MG TABLET PO (09:07)
[2020-06-23] MEDS: PRAVASTATIN SODIUM 20 MG TABLET 40 MG PO (09:08)
[2020-06-23] MEDS: TAMSULOSIN HCL 0.4 MG CAPSULE PO (09:08)
[2020-06-23] MEDS: OMEGA 3 POLYUNSAT FATTY ACIDS 1 GM CAP PO ×2 (09:08→17:07)
[2020-06-23] MEDS: FLUTICASONE/SALMETEROL 115-21 MCG (*SP) INHALER 2 PUFF INHALATION ×2 (09:11→20:37)
--- NOTE | 2020-06-23 12:55 | PM.IMPN ---
Progress Note: A&P Assessment and Plan (1) Respiratory failure with hypoxia: Qualifiers: Chronicity: acute Qualified Code(s): J96.01 - Acute respiratory failure with hypoxia Code(s): J96.91 - Respiratory failure, unspecified with hypoxia Status: Acute Assessment and Plan: Continue supplemental O2 BiPAP at night time as needed Doing much better today Wean off of Oxygen as needed (2) Pneumonia due to COVID-19 virus: Code(s): U07.1 - COVID-19; J12.82 - Pneumonia due to coronavirus disease 2018 Status: Acute Assessment and Plan: On Remdesivir and Ceftriaxone Added Cefepime as patient has been in the hospital several days (3) Chronic kidney disease, stage 3: Code(s): N18.30 - Chronic kidney disease, stage 3 unspecified Status: Acute Assessment and Plan: Continue to monitor (4) Type 2 diabetes mellitus with stage 3 chronic kidney disease: Code(s): E11.22 - Type 2 diabetes mellitus with diabetic chronic kidney disease; N18.3 - Chronic kidney disease, stage 3 (moderate) Status: Acute Assessment and Plan: Accuchecks ACHS ADA diet ISS as needed (5) Acute kidney injury superimposed on CKD: Code(s): N17.9 - Acute kidney failure, unspecified; N18.9 - Chronic kidney disease, unspecified Status: Acute Assessment and Plan: Gentle hydration Had 1 L bolus over the weekend Continue to monitor (6) Physical deconditioning: Code(s): R53.81 - Other malaise Status: Acute Assessment and Plan: Participating in therapy sessions with PT/OT Subjective Date/time seen: 06/23/20 12:55 States that he feels much better Review of Systems Review of Systems: Narrative: no new complains, no new issues overnight. Constitutional: Comments: no fevers, no rigors, no chills. Cardiovascular: Comments: no chest pain. Respiratory: Comments: mild sob. Gastrointestinal: Comments: no n/v/abdominal pain. Musculoskeletal: Comments: no joint pain. Integumentary/Breasts: Comments: no rashes Neurologic: Comments: no sensory motor deficit Exam Narrative: Exam Narrative: Lying in bed Const: General: comfortable, no acute distress, alert, awake and Physically active Nutritional Appearance: average body habitus Orientation/consciousness: patient oriented x3 HENMT: Head: normal to inspection and normocephalic General nose exam: Normal external nose present Face and sinus: normal facial exam Eyes: General: appearance normal, both eyes and all related structures Pupils: Equal, round and reactive pupils present EOM: EOMs intact bilaterally Neck: Neck: no lymphadenopathy, supple and no JVD Resp: Auscultation: diminished lung sounds Cardio: Jugular venous distension: no JVD Rate: regular rate Rhythm: regular rhythm GI: GI Palp: Yes Soft to palpation and Yes No hepatosplenomegaly present Skin: Rashes: no rashes Neuro: General: patient oriented x3 and CN's II-XI intact bilaterally Cranial nerves: Yes CN's II-XII intact bilaterally and Yes Bilaterally intact EOM present Cognition (Neuro): normal cognition Speech: normal speech Motor exam (neuro): 5/5 motor strength present throughout Extrem: General: no pedal edema Objective Data Vital Signs Vital Signs: Vital Signs - 24 hr 06/22/20 16:00 06/22/20 20:00 06/22/20 22:54 Temperature 98.0 F 97.5 F L Pulse Rate 110 H 90 Respiratory Rate 20 Blood Pressure 138/66 145/71 H Pulse Oximetry 93 91 92 06/23/20 00:00 06/23/20 01:00 06/23/20 04:00 Temperature 98.7 F 98 F Pulse Rate 80 77 Respiratory Rate 22 H 20 Blood Pressure 128/68 138/73 Pulse Oximetry 96 93 93 06/23/20 08:00 06/23/20 12:00 Temperature 97.6 F 97.9 F Pulse Rate 82 89 Respiratory Rate 24 H 20 Blood Pressure 116/61 104/46 L Pulse Oximetry 88 L 94 Intake/Output Intake/Output: Intake & Output 06/20/20 06/21/20 06/22/20 06/23/20 23:59 23:59 23:59 23:59 Intake Total 15
[2020-06-23] MEDS: polyethylene glycoL 3350 17 GM POWD.PACK PO (17:07)
[2020-06-24] VITALS (8 sets, daily range): BP systolic 119–172; BP diastolic 63–84; PULSE 77–100; RESP 18–20; TEMP 36.3–37; O2SAT 92–97
[2020-06-24] MEDS: ENOXAPARIN 100 MG/ML SYRINGE SUB-Q ×2 (05:53→17:16)
[2020-06-24] MEDS: GABAPENTIN 100 MG CAPSULE PO ×3 (05:54→20:59)
[2020-06-24] MEDS: FLUTICASONE/SALMETEROL 115-21 MCG (*SP) INHALER 2 PUFF INHALATION ×2 (10:04→20:57)
[2020-06-24] MEDS: ASPIRIN 81 MG ENTERIC TABLET PO (10:04)
[2020-06-24] MEDS: PRAVASTATIN SODIUM 20 MG TABLET 40 MG PO (10:04)
[2020-06-24] MEDS: BENZONATATE 100 MG CAPSULE PO ×3 (10:04→17:15)
[2020-06-24] MEDS: OMEGA 3 POLYUNSAT FATTY ACIDS 1 GM CAP PO ×2 (10:04→17:15)
[2020-06-24] MEDS: FINASTERIDE 5 MG TABLET PO (10:04)
[2020-06-24] MEDS: TAMSULOSIN HCL 0.4 MG CAPSULE PO (10:05)
--- NOTE | 2020-06-24 11:39 | PCNWS ---
Weekly nutritional screen. Patient is tolerating current diet-heart healthy with adequate intake-75% of meals. Patient is also drinking Ensure Enlive TID providing an additional 350 kcals and 20 gms proteins. Nursing states patient is currently on 6L 02. No weight loss reported. No diet questions or concerns. Will monitor for length of stay 7 days.
[2020-06-24] MEDS: SODIUM CHLORIDE 0.9% IV 1,000 ML 75 ML IV CONT (12:32)
--- NOTE | 2020-06-24 13:11 | PM.IMPN ---
Progress Note: A&P Assessment and Plan (1) Respiratory failure with hypoxia: Qualifiers: Chronicity: acute Qualified Code(s): J96.01 - Acute respiratory failure with hypoxia Code(s): J96.91 - Respiratory failure, unspecified with hypoxia Status: Acute Assessment and Plan: Continue supplemental O2 BiPAP at night time as needed Doing much better today (2) Pneumonia due to COVID-19 virus: Code(s): U07.1 - COVID-19; J12.82 - Pneumonia due to coronavirus disease 2018 Status: Acute Assessment and Plan: Completed Remdesivir on Cefepime now order cxr for manas am (3) Chronic kidney disease, stage 3: Code(s): N18.30 - Chronic kidney disease, stage 3 unspecified Status: Acute Assessment and Plan: Continue to monitor (4) Type 2 diabetes mellitus with stage 3 chronic kidney disease: Code(s): E11.22 - Type 2 diabetes mellitus with diabetic chronic kidney disease; N18.3 - Chronic kidney disease, stage 3 (moderate) Status: Acute Assessment and Plan: Accuchecks ACHS ADA diet ISS as needed (5) Acute kidney injury superimposed on CKD: Code(s): N17.9 - Acute kidney failure, unspecified; N18.9 - Chronic kidney disease, unspecified Status: Acute Assessment and Plan: Pt to drink more fluids (6) Physical deconditioning: Code(s): R53.81 - Other malaise Status: Acute Assessment and Plan: Participating in therapy sessions with PT/OT Additional Plan . Subjective Date/time seen: 06/24/20 13:11 Interval history: 9 year old male with a past medical history of obstructive sleep apnea (not on CPAP), asthma, BPH, CHF, diabetes, chronic kidney disease stage III and recent diagnosis of COVID-19 06/05/2020 who presented to the ER with increased shortness of breath. Pt has outbreak of shingles Apr almost a month. CXR shows R sided pneumonia likely mild covid pneumonia. Pt started on remdesivir now on Cefepime. I will order Cxr manas am. Pt is out of isolation feels better still SOB 5 liters at rest 7 liters on ambulation. Review of Systems Review of Systems: All systems reviewed & are unremarkable except as noted in HPI and below Exam Const: General: other (comfortable on oxygen ) Neck: Neck: no lymphadenopathy, supple and no JVD Resp: Effort & Inspection: no respiratory distress Cardio: Jugular venous distension: no JVD Rate: regular rate Rhythm: regular rhythm Skin: Rashes: no rashes and other (shingles on his left side ) Wounds: no wounds Neuro: General: oriented to person, patient oriented x3 and CN's II-XI intact bilaterally Cranial nerves: Yes CN's II-XII intact bilaterally, Yes Equal, round and reactive pupils present and Yes Bilaterally intact EOM present Cognition (Neuro): normal cognition Speech: normal speech Motor exam (neuro): 5/5 motor strength present throughout Extrem: General: no pedal edema Objective Data Vital Signs Vital Signs: Vital Signs - 24 hr 06/23/20 13:37 06/23/20 16:00 06/23/20 20:00 Temperature 36.4 C L 36.6 C Pulse Rate 88 87 Respiratory Rate 24 H 20 Blood Pressure 112/65 125/69 Pulse Oximetry 91 95 93 06/23/20 21:55 06/24/20 00:00 06/24/20 04:00 Temperature 37.0 C 36.7 C Pulse Rate 93 77 89 Respiratory Rate 20 20 Blood Pressure 119/72 133/73 Pulse Oximetry 92 94 93 06/24/20 08:00 06/24/20 09:17 06/24/20 13:01 Temperature 36.4 C L Pulse Rate 84 Respiratory Rate 18 Blood Pressure 172/84 H Pulse Oximetry 97 92 96 Intake/Output Intake/Output: Intake & Output 06/21/20 06/22/20 06/23/20 06/24/20 23:59 23:59 23:59 23:59 Intake Total 1050 3050 3410 2390 Output Total 1400 1290 900 700 Balance -350 1760 2510 1690 Meds/Results Medications: Active Medications Generic Name Dose Route Start Last Admin Trade Name Freq PRN Reason Stop Dose Admin Acetaminophen 325 mg 06/12/20 16:03 06/13/20 21:12 Acetaminophen 325 Mg T
--- NOTE | 2020-06-24 14:53 | PCPTNOTE ---
Patient refused treatment this session due to fatigue. Attempted to see patient at 14:48. Patient states that he had a rough morning and is too tired this afternoon to complete therapy. Patient declined exercises and out of bed activity. Will attempt to see patient tomorrow as appropriate. Katelyn Sanchez, [employer]
[2020-06-24] MEDS: polyethylene glycoL 3350 17 GM POWD.PACK PO (17:15)
[2020-06-25] MEDS: SODIUM CHLORIDE 0.9% IV 1,000 ML 75 ML IV CONT (04:24)
[2020-06-25] MEDS: ENOXAPARIN 100 MG/ML SYRINGE SUB-Q ×2 (05:29→17:55)
[2020-06-25] MEDS: GABAPENTIN 100 MG CAPSULE PO ×3 (05:29→20:24)
[2020-06-25 06:00] VITALS: BP 136/68; PULSE 83; RESP 20; TEMP 36.8; O2SAT 94
[2020-06-25] MEDS: TAMSULOSIN HCL 0.4 MG CAPSULE PO (08:44)
[2020-06-25] MEDS: FINASTERIDE 5 MG TABLET PO (08:44)
[2020-06-25] MEDS: ASPIRIN 81 MG ENTERIC TABLET PO (08:44)
[2020-06-25] MEDS: OMEGA 3 POLYUNSAT FATTY ACIDS 1 GM CAP PO ×2 (08:44→17:54)
[2020-06-25] MEDS: FLUTICASONE/SALMETEROL 115-21 MCG (*SP) INHALER 2 PUFF INHALATION ×2 (08:44→20:24)
[2020-06-25] MEDS: BENZONATATE 100 MG CAPSULE PO ×3 (08:44→17:54)
[2020-06-25] MEDS: PRAVASTATIN SODIUM 20 MG TABLET 40 MG PO (08:44)
[2020-06-25 08:50] VITALS: O2SAT 91
--- NOTE | 2020-06-25 13:23 | PCOTNOTE ---
OT re-assess attempted. Patient refusing at this time due to feeling fatigued and tired. Patient stating they will be up for therapy tomorrow and just doesn't feel good today. Will attempt OT re-assess at later time.
--- NOTE | 2020-06-25 13:38 | PM.IMPN ---
Progress Note: A&P Assessment and Plan (1) Respiratory failure with hypoxia: Qualifiers: Chronicity: acute Qualified Code(s): J96.01 - Acute respiratory failure with hypoxia Code(s): J96.91 - Respiratory failure, unspecified with hypoxia Status: Acute Assessment and Plan: Continue supplemental O2 BiPAP at night time as needed Doing much better still requiring oxygen I will consult pulmonology for recommendations as pt has been in hospital more than 14 days May need to discharge on oxygen. (2) Pneumonia due to COVID-19 virus: Code(s): U07.1 - COVID-19; J12.82 - Pneumonia due to coronavirus disease 2018 Status: Acute Assessment and Plan: Completed Remdesivir on Cefepime now (3) Chronic kidney disease, stage 3: Code(s): N18.30 - Chronic kidney disease, stage 3 unspecified Status: Acute Assessment and Plan: Continue to monitor (4) Type 2 diabetes mellitus with stage 3 chronic kidney disease: Code(s): E11.22 - Type 2 diabetes mellitus with diabetic chronic kidney disease; N18.3 - Chronic kidney disease, stage 3 (moderate) Status: Acute Assessment and Plan: Accuchecks ACHS ADA diet ISS as needed (5) Acute kidney injury superimposed on CKD: Code(s): N17.9 - Acute kidney failure, unspecified; N18.9 - Chronic kidney disease, unspecified Status: Acute Assessment and Plan: Pt to drink more fluids (6) Physical deconditioning: Code(s): R53.81 - Other malaise Status: Acute Assessment and Plan: Participating in therapy sessions with PT/OT Subjective Date/time seen: 06/25/20 13:38 Interval history: 80 year old male with a past medical history of obstructive sleep apnea (not on CPAP), asthma, BPH, CHF, diabetes, chronic kidney disease stage III and recent diagnosis of COVID-19 06/05/2020 who presented to the ER with increased shortness of breath. Pt has outbreak of shingles Apr almost a month. CXR shows R sided pneumonia likely mild covid pneumonia. Pt started on remdesivir now on Cefepime. Cxr today looks similar to admission chest xray. Pt is out of isolation feels better, but still SOB 5 liters at rest 7 liters on ambulation. Review of Systems Review of Systems: All systems reviewed & are unremarkable except as noted in HPI and below Exam Narrative: Exam Narrative: Lying in bed Const: General: tired appearing (wet cough unwell appearing ) Orientation/consciousness: oriented to person and patient oriented x3 Resp: Auscultation: clear to auscultation bilaterally and diminished lung sounds Cardio: Jugular venous distension: no JVD Rate: regular rate Rhythm: regular rhythm Skin: Rashes: no rashes and other (shingles on his left side ) Wounds: no wounds Neuro: General: oriented to person, patient oriented x3 and CN's II-XI intact bilaterally Cranial nerves: Yes CN's II-XII intact bilaterally, Yes Equal, round and reactive pupils present and Yes Bilaterally intact EOM present Cognition (Neuro): normal cognition Speech: normal speech Motor exam (neuro): 5/5 motor strength present throughout Extrem: General: no pedal edema Objective Data Vital Signs Vital Signs: Vital Signs - 24 hr 06/24/20 14:00 06/24/20 20:50 06/24/20 22:00 Temperature 36.3 C L 36.5 C Pulse Rate 100 92 Respiratory Rate 20 20 Blood Pressure 123/65 124/63 Pulse Oximetry 94 94 93 06/25/20 06:00 06/25/20 08:50 Temperature 36.8 C Pulse Rate 83 Respiratory Rate 20 Blood Pressure 136/68 Pulse Oximetry 94 91 Intake/Output Intake/Output: Intake & Output 06/22/20 06/23/20 06/24/20 06/25/20 23:59 23:59 23:59 23:59 Intake Total 3050 3410 3480 2200 Output Total 8938 150 6402 450 Balance 1760 2510 1980 1750 Meds/Results Medications: Active Medications Generic Name Dose Route Start Last Admin Trade Name Freq PRN Reason Stop Dose Admin Acetaminophen 325 mg 06/12/20 16:03 06/13/20
[2020-06-25 14:00] VITALS: BP 149/72; PULSE 100; RESP 18; TEMP 37.5; O2SAT 94
[2020-06-25 14:57] LABS: Basophils Percent Auto 0.4 % (0.2-1.2); Eosinophils Absolute Auto 0.1 K/mm3 (0-0.3); Eosinophils Percent Auto 1.2 % (0-4.4); Hematocrit 37.6 % (42.0-52.0); Hemoglobin 11.8 g/dL (14.0-18.0); Immature Granulocyte Absolute 0.31 K/mm3 (0.00-0.031); Immature Granulocyte Percent A 3.3 % (0-0.5); Lymphocytes Absolute Auto 1.88 K/mm3 (0.9-3.2); Lymphocytes Percent Auto 19.7 % (18.3-44.2); Mean Corpuscular HGB Conc 31.4 g/dl (32-36); Mean Corpuscular Hemoglobin 31.4 pg (26-34); Mean Platelet Volume 10.2 fl (7.4-10.4); Monocytes Absolute Auto 0.8 K/mm3 (0.1-0.6); Monocytes Percent Auto 7.9 % (2.6-8.5); Neutrophils Absolute Auto 6.4 K/mm3 (1.3-6.7); Neutrophils Percent Auto 67.5 % (45.5-73.1); Platelet Count Result 241 k/mm3 (150-375); Red Blood Count 3.76 M/mm3 (4.6-6.20); Red Cell Distribution Width 14.1 % (11.5-14.5); White Blood Count 9.5 K/mm3 (4.5-10.0)
[2020-06-25 15:16] LABS: D Dimer 0.28 ug/mL (<0.48)
[2020-06-25 15:20] LABS: NT Pro B Type Natriuretic Pept 142 PG/ML (5-100)
--- NOTE | 2020-06-25 16:27 | PM.CNPUL ---
Assessment and Plan Assessment and plan (1) Pneumonia due to COVID-19 virus: Code(s): U07.1 - COVID-19; J12.82 - Pneumonia due to coronavirus disease 2019 Status: Acute Assessment and Plan: Patient with COVID pneumonia and hypoxemia. Overall patient has improved since admission and is now approximately feeling 50% back to normal. Patient's peak oxygen requirements were 15 L nasal cannula and he currently is on 5 L nasal cannula. Patient's D-dimer 0.28 so that I do not think the patient has any pulmonary emboli. Patient's BNP is 142, mildly elevated and he is 20.275 L positive on this admission. I will DC his IV fluid at this time. Patient was started on cefepime for presumed pneumonia although at this time his oxygenation was improving. If he had developed a healthcare associated pneumonia I would have anticipated that he would have had worsening symptoms and worsening hypoxia which he has not. Patient does not have any active bronchospasm at this time and I do not feel he has an acute exacerbation of COPD. I will continue his inhaled Advair 115-212 puffs b.i.d.. Continue rescue albuterol. I will and obtain a CT scan of the chest without contrast to assess his pulmonary infiltrates. Will follow with you. History of Present Illness History of Present Illness Consult date: 06/25/20 Requesting physician: Ese Guerra MD Reason for consult: hypoxemia Chief complaint: pneumonia, covid Narrative: this is a new patient consult for COVID pneumonia and hypoxemia Patient is a 80-year-old man with a history of CHF, diabetes, chronic kidney disease, COPD, asthma, ANEUDY who has COVID pneumonia and still requires oxygen on 06/25, therefore I was consulted. Patient has a history of COPD diagnosed years ago by pulmonary function testing. Patient smoked tobacco from age [age] at 1 pack per day (he has 20 pack years ) ease. Patient was exposed to secondhand smoke from his father. 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 Patient states that he could walk 2 blocks and then have to stop for back pain and dyspnea on exertion. His M MRC grade is 3. He says that in his house he can walk up 1 flight of stairs and then keeps walking to go to his bedroom. Patient states that he is on the long-acting beta agonist and inhaled corticosteroid with wyxela for about a year and takes 1 puff twice a day. STate patient also takes rescue albuterol. Patient states that he feels improvement with his inhalers. Patient tested positive for COVID on 06/05/2020 and he presented to the emergency room on 06/10/2020. Patient initially required 2 L of oxygen and had chest x-ray with bibasilar infiltrates. Patient was started on dexamethasone but not Remdesivir and he did not receive convalescent plasma. Patient's oxygenation worsened and on 06/13 he required 5 L nasal cannula. On 06/17 he required 7 L nasal cannula. On 06/18 he [place] required 8 L nasal cannula. And on 06/19 he required 15 L nasal cannula. Patient's x-ray progressed and he now has diffuse bilateral coarse interstitial infiltrates bilaterally. He was started on cefepime on 06/21/2020. Patient is on Advair HFA 115-212 puffs b.i.d. and albuterol p.r.n.. 06/25 Patient states that overall he is much improved. At his worse he said that he was breathing about 5% of his normal. Currently today patient states that his breathing and shortness of breath is 50% back to baseline. Patient has cough with improved phlegm production. Patient denies hemoptysis, denies fever or chills, denies chest pain. Patient is currently on 5 L nasal cannula saturations 91%. Patient's D-dimer today is 0.28 which is negative. His BNP is 142. His creatinine is 1.10. Review of Systems Review of Systems: All systems reviewed & are unremarkable except as noted in HPI and below Eyes: Eyes: Reports no additional eye complaints ENT: Reports system reviewed
[2020-06-25 16:32] LABS: Alanine Aminotransferase 67 U/L (4-50); Albumin Level 2.6 g/dL (3.5-5.1); Alkaline Phosphatase 30 U/L (38-126); Anion Gap 2 mmol/L (8-16); Aspartate Amino Transferase 45 U/L (17-59); Bilirubin,Total 0.4 mg/dL (0.2-1.3); Blood Urea Nitrogen 17 mg/dL (9-20); Calcium 8.1 mg/dL (8.4-10.2); Carbon Dioxide 28 mmol/L (22-30); Chloride 107 mmol/L (98-107); Estimated CRCL calculation 59 ml/min; Estimated Glomerular Filt Rate > 60; Glucose 201 mg/dL (75-110); Potassium 4.5 mmol/L (3.4-5.0); Sodium 137 mmol/L (137-145)
[2020-06-25] MEDS: polyethylene glycoL 3350 17 GM POWD.PACK PO (17:54)
[2020-06-25 20:00] VITALS: O2SAT 93
[2020-06-25 21:33] VITALS: BP 144/71; PULSE 103; RESP 20; TEMP 36.1; O2SAT 93
[2020-06-26] VITALS (12 sets, daily range): BP systolic 118–136; BP diastolic 65–74; PULSE 85–120; RESP 18–20; TEMP 36.2–36.4; O2SAT 87–95
[2020-06-26] MEDS: ENOXAPARIN 100 MG/ML SYRINGE SUB-Q (05:00)
[2020-06-26] MEDS: GABAPENTIN 100 MG CAPSULE PO ×2 (05:00→13:00)
[2020-06-26] MEDS: FLUTICASONE/SALMETEROL 115-21 MCG (*SP) INHALER 2 PUFF INHALATION (08:30)
[2020-06-26] MEDS: BENZONATATE 100 MG CAPSULE PO ×2 (08:32→13:00)
[2020-06-26] MEDS: TAMSULOSIN HCL 0.4 MG CAPSULE PO (08:32)
[2020-06-26] MEDS: OMEGA 3 POLYUNSAT FATTY ACIDS 1 GM CAP PO (08:32)
[2020-06-26] MEDS: ASPIRIN 81 MG ENTERIC TABLET PO (08:32)
[2020-06-26] MEDS: FINASTERIDE 5 MG TABLET PO (08:32)
[2020-06-26] MEDS: PRAVASTATIN SODIUM 20 MG TABLET 40 MG PO (08:32)
--- NOTE | 2020-06-26 09:37 | PM.PNPUL ---
Progress Note: A&P Assessment and Plan (1) Pneumonia due to COVID-19 virus: Code(s): U07.1 - COVID-19; J12.82 - Pneumonia due to coronavirus disease 2019 Status: Acute Assessment and Plan: 06/25 Patient with COVID pneumonia and hypoxemia. Overall patient has improved since admission and is now approximately feeling 50% back to normal. Patient's peak oxygen requirements were 15 L nasal cannula and he currently is on 5 L nasal cannula. Patient's D-dimer 0.28 so that I do not think the patient has any pulmonary emboli. Patient's BNP is 142, mildly elevated and he is 20.275 L positive on this admission. I will DC his IV fluid at this time. Patient was started on cefepime for presumed pneumonia although at this time his oxygenation was improving. If he had developed a healthcare associated pneumonia I would have anticipated that he would have had worsening symptoms and worsening hypoxia which he has not. Patient does not have any active bronchospasm at this time and I do not feel he has an acute exacerbation of COPD. I will continue his inhaled Advair 115-21 at 2 puffs b.i.d.. Continue rescue albuterol. 06/26 CT scan of the chest with multilobar interstitial and ground glass infiltrates. I believe this is resolving COVID-19 pneumonia and not bacterial pneumonia. Will DC cefepime today. No additional etiologies for continued hypoxia other than resolving COVID-19 pneumonia. I do not feel that he has any complicating respiratory issues that need to be addressed at this time. At this point it is unclear if patient will recover completely from a respiratory viewpoint. I explained that we do not have any additional testing that will give us a an idea about the prognosis for complete recover. The patient should continue to remain active as long as they are comfortable from a respiratory viewpoint. He may require home oxygen for weeks, months or longer. When discharged place on these medications: Advair 250/50 1 puff BID rescue albuterol 2 puffs Q 4 PRN Oxygen per home O2 assessment during day and at night use the amount he requires during ambulation from the home O2 assessment Patient can follow up with us in pulmonary clinic ([phone]) in 4 weeks for follow up of his COPD, COVID, and history of untreated ANEUDY (split night sleep study in 08/30/2016 with AHI 25 and lowest desat of 76% and optimal CPAP was 8 with AHI 1.5). Will sign off, please call with any questions. Subjective Date/time seen: 06/26/20 09:37 Interval history: Patient is a 80-year-old man with a history of CHF, diabetes, chronic kidney disease, COPD, asthma, ANEUDY who has COVID pneumonia and still requires oxygen on 06/25, therefore I was consulted. Patient has a history of COPD diagnosed years ago by pulmonary function testing. Patient smoked tobacco from age [age] at 1 pack per day (he has 20 pack years ) ease. Patient was exposed to secondhand smoke from his father. 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 Patient states that he could walk 2 blocks and then have to stop for back pain and dyspnea on exertion. His M MRC grade is 3. He says that in his house he can walk up 1 flight of stairs and then keeps walking to go to his bedroom. Patient states that he is on the long-acting beta agonist and inhaled corticosteroid with wyxela for about a year and takes 1 puff twice a day. STate patient also takes rescue albuterol. Patient states that he feels improvement with his inhalers. Patient tested positive for COVID on 06/05/2020 and he presented to the emergency room on 06/10/2020. Patient initially required 2 L of oxygen and had chest x-ray with bibasilar infiltrates. Patient was started on dexamethasone but not Remdesivir and he did not receive convalescent plasma. Patient's oxygenation worsened and on 06/13 he required 5 L nasal cannula. On 06/17 he required 7 L nasal cannula. On 06/18 he [place] required 8
--- NOTE | 2020-06-26 14:52 | PM.DS ---
DS: Admitting Diagnosis Admitting Diagnosis Admitting Diagnosis: SOB DS: Discharge Diagnosis Discharge Diagnosis (1) Respiratory failure with hypoxia: Qualifiers: Chronicity: acute Qualified Code(s): J96.01 - Acute respiratory failure with hypoxia Code(s): J96.91 - Respiratory failure, unspecified with hypoxia Status: Acute Assessment and Plan: Continue supplemental O2 Doing much better still requiring oxygen I will consult pulmonology for recommendations as pt has been in hospital more than 14 days May need to discharge on oxygen. (2) Pneumonia due to COVID-19 virus: Code(s): U07.1 - COVID-19; J12.82 - Pneumonia due to coronavirus disease 2019 Status: Acute Assessment and Plan: Completed Remdesivir and Cefepime (3) Chronic kidney disease, stage 3: Code(s): N18.30 - Chronic kidney disease, stage 3 unspecified Status: Acute Assessment and Plan: Continue to monitor (4) Type 2 diabetes mellitus with stage 3 chronic kidney disease: Code(s): E11.22 - Type 2 diabetes mellitus with diabetic chronic kidney disease; N18.3 - Chronic kidney disease, stage 3 (moderate) Status: Acute Assessment and Plan: Accuchecks ACHS ADA diet (5) Acute kidney injury superimposed on CKD: Code(s): N17.9 - Acute kidney failure, unspecified; N18.9 - Chronic kidney disease, unspecified Status: Acute Assessment and Plan: Pt to drink more fluids (6) Physical deconditioning: Code(s): R53.81 - Other malaise Status: Acute Assessment and Plan: Participating in therapy sessions with PT/OT DS: Summary Hospital Course Hospital Course: t diagnosis of COVID-19 06/05/2020 who presented to the ER with increased shortness of breath. Pt has outbreak of shingles Apr almost a month. CXR shows R sided pneumonia likely mild covid pneumonia. Pt started on remdesivir and on Cefepime. Cxr today looks similar to admission chest xray. Pt is out of isolation feels better, but still SOB 5 liters at rest 7 liters on ambulation. Pt had ct chest to rule out other pathologies. Pt will need to discharge with oxygen at home. Seen by pulmonology and ID in the hospital prior to discharge. Pt to follow with pulmonology will need outpatient sleep study. Time Spent with Patient Time attestation: Total time spent providing and/or coordinating discharge services:40 minutes on the day of discharge Exam Narrative: Exam Narrative: Lying in bed Const: General: tired appearing (wet cough unwell appearing ) Nutritional Appearance: average body habitus, well nourished and overweight Orientation/consciousness: oriented to person and patient oriented x3 Resp: Effort & Inspection: able to speak in complete sentences Auscultation: diminished lung sounds Cardio: Jugular venous distension: no JVD Rate: regular rate Rhythm: regular rhythm Skin: Rashes: no rashes and other (shingles on his left side ) Wounds: no wounds Neuro: General: oriented to person, patient oriented x3 and CN's II-XI intact bilaterally Cranial nerves: Yes CN's II-XII intact bilaterally, Yes Equal, round and reactive pupils present and Yes Bilaterally intact EOM present Cognition (Neuro): normal cognition Speech: normal speech Motor exam (neuro): 5/5 motor strength present throughout Extrem: General: no pedal edema DS: Data Data Completed and Pending Labs on day of discharge: Labs from last 24 hours 06/25/20 06/25/20 06/25/20 14:28 14:28 14:28 WBC 9.5 RBC 3.76 L Hgb 11.8 L Hct 37.6 L MCV 100.0 MCH 31.4 MCHC 31.4 L RDW 14.1 Plt Count 241 MPV 10.2 Immature Gran % (Auto) 3.3 H Neut % (Auto) 67.5 Lymph % (Auto) 19.7 [place] % (Auto) 7.9 Eos % (Auto) 1.2 Baso % (Auto) 0.4 Lymph # (Auto) 1.88 [place] # (Auto) 0.8 H Eos # (Auto) 0.1 Baso # (Auto) 0.0 Abs Immat Gran (auto) 0.31 H Absolute Neuts (auto) 6.4
--- NOTE | 2020-06-26 15:30 | HOMEO2EVAL ---
Home Oxygen Evaluation RC: Home Oxygen (O2) Evaluation Start: 06/26/20 11:15 Freq: ONCE Status: Active Protocol: RPE Activity Type Activity Date Activity User E-Sign Co-Sign Detail Recorded Client Recorded Date Recorded By Document 06/26/20 13:00 GULSHAN [email or web address] 06/26/20 15:30 GULSHAN Document 06/26/20 13:01 GULSHAN [email or web address] 06/26/20 15:30 GULSHAN Document 06/26/20 13:02 GULSHAN [email or web address] 06/26/20 15:30 GULSHAN Document 06/26/20 13:03 GULSHAN [email or web address] 06/26/20 15:30 GULSHAN Document 06/26/20 13:04 GULSHAN [email or web address] 06/26/20 15:30 GULSHAN Document 06/26/20 13:05 GULSHAN [email or web address] 06/26/20 15:30 GULSHAN Document 06/26/20 13:08 GULSHAN [email or web address] 06/26/20 15:30 GULSHAN Document 06/26/20 13:10 GULSHAN [email or web address] 06/26/20 15:30 GULSHAN Document 06/26/20 13:15 GULSHAN [email or web address] 06/26/20 15:30 GULSHAN 06/26/20 06/26/20 06/26/20 13:00 13:01 13:02 Home O2 Evaluation Test Phase Resting Resting Resting Oxygen Delivery Room Air Nasal Cannula Nasal Cannula Oxygen Flow Rate (L/min) 1 2 Pulse Oximetry (90-100 %) 87 L 87 L 87 L Pulse Rate (60-100 beats/min) Home Oxygen Evaluation Comments Treatment Charges O2 Evaluation - Inpatient 06/26/20 06/26/20 06/26/20 13:03 13:04 13:05 Home O2 Evaluation Test Phase Resting Resting Exercise Oxygen Delivery Nasal Cannula Nasal Cannula Nasal Cannula Oxygen Flow Rate (L/min) 3 4 4 Pulse Oximetry (90-100 %) 87 L 90 87 L Pulse Rate (60-100 beats/min) 90 Home Oxygen Evaluation Comments Treatment Charges 06/26/20 06/26/20 06/26/20 13:08 13:10 13:15 Home O2 Evaluation Test Phase Exercise Exercise Resting Oxygen Delivery Nasal Cannula Nasal Cannula Nasal Cannula Oxygen Flow Rate (L/min) 5 6 4 Pulse Oximetry (90-100 %) 87 L 90 92 Pulse Rate (60-100 beats/min) 120 H 120 H 99 Home Oxygen Evaluation Comments Up to commode Pt requires 4 and back to bed liters home O2 . Used walker at rest and 6 and gait belt. liters with Assist x1. activity/ exertion Treatment Charges
--- NOTE | 2020-06-26 15:30 | PCRCNOTE ---
Home O2 eval done. Pt requires 4 L rest and 6 L activity, up to commode and back to bed, assist with gait belt and walker. Weak and moderately SOB. Must take breaks with all exertion. Set up with [facility]. Will drop off tank in room for transport home.
--- NOTE | 2020-08-30 17:23 | PM.IMPN ---
Progress Note: A&P Assessment and Plan (1) Pneumonia due to COVID-19 virus: Code(s): U07.1 - COVID-19; J12.82 - Pneumonia due to coronavirus disease 2019 Status: Acute Assessment and Plan: Patient with worsening diffuse pneumonia Itz cefepime patient has been several days in the hospital Await cultures (2) Respiratory failure with hypoxia: Qualifiers: Chronicity: acute Qualified Code(s): J96.01 - Acute respiratory failure with hypoxia Code(s): J96.91 - Respiratory failure, unspecified with hypoxia Status: Acute Assessment and Plan: Likely secondary to COVID pneumonia (3) ANEUDY (obstructive sleep apnea): Code(s): G47.33 - Obstructive sleep apnea (adult) (pediatric) Status: Acute Assessment and Plan: CPAP at night (4) COPD (chronic obstructive pulmonary disease): Code(s): J44.9 - Chronic obstructive pulmonary disease, unspecified Status: Acute Assessment and Plan: Breathing treatment (5) Physical deconditioning: Code(s): R53.81 - Other malaise Status: Acute Assessment and Plan: PT OT (6) Acute kidney injury superimposed on CKD: Code(s): N17.9 - Acute kidney failure, unspecified; N18.9 - Chronic kidney disease, unspecified Status: Acute Assessment and Plan: Patient with elevation of creatinine Will continue to monitor Likely to be pre renal azotemia Gentle hydration Subjective Date/time seen: 08/30/20 17:24 This is a late entry note patient was seen and examined on 06/21/20 Review of Systems Review of Systems: Narrative: Patient has no complaints. Exam Narrative: Exam Narrative: Laying in bed, well-appearing. Const: General: comfortable, no acute distress, well developed, alert and awake Nutritional Appearance: average body habitus Orientation/consciousness: patient oriented x3 HENMT: Head: normal to inspection, normocephalic and atraumatic Ears: hearing grossly normal bilaterally Face and sinus: normal facial exam Eyes: General: appearance normal, both eyes and all related structures Pupils: Equal, round and reactive pupils present EOM: EOMs intact bilaterally Neck: Neck: full ROM, no lymphadenopathy and no JVD Thyroid: thyroid normal Lymphatic: no lymphadenopathy noted Resp: Effort & Inspection: normal respiratory effort and able to speak in complete sentences Auscultation: clear to auscultation bilaterally Cardio: Jugular venous distension: no JVD Rate: regular rate Rhythm: regular rhythm Heart sounds: S1 normal heart sound present and S2 normal heart sound present GI: GI Palp: Yes Soft to palpation and Yes No hepatosplenomegaly present : General: Yes deferred Skin: Rashes: no rashes Wounds: no wounds Neuro: General: patient oriented x3 and CN's II-XI intact bilaterally Cranial nerves: Yes CN's II-XII intact bilaterally and Yes Equal, round and reactive pupils present Cognition (Neuro): normal cognition Speech: normal speech Gait exam (Neuro): Normal gait present Motor exam (neuro): 5/5 motor strength present throughout Extrem: General: normal to inspection, full ROM, no joint enlargement and no pedal edema Objective Data Meds/Results Radiology Results: ITS Impressions Chest X-Ray 06/25/20 07:03 IMPRESSION: 1. Worsened diffuse lung disease, consistent with COVID-[address] 06/26/20 09:18 IMPRESSION: 1. Multifocal pneumonia. 2. Septal thickening in the inferior lungs, consistent with mild pulmonary edema versus chronic interstitial lung disease. 3. Small pleural effusions. Quality VTE Prophylaxis VTE prophylaxis: pharmacologic ordered (Lovenox 1 milligram/kilogram q.12)
== END 2020-06-26 16:57 | disposition home health service (06) | DRG 177 ==
LOC: ANHED 18:41 → ANH3MEDSUR 06-11 12:00
PROVIDERS: Internal Medicine; Internal Medicine Pulmonary Disease; Admitting Provider Internal Medicine; Emergency Provider Emergency Medicine; PCP Internal Medicine; Visit Provider Family Medicine
DX: U07.1 COVID-19 (principal); J12.82 Pneumonia due to coronavirus disease 2019; J96.01 Acute respiratory failure with hypoxia; B02.8 Zoster with other complications; J44.0 Chronic obstructive pulmonary disease with (acute) lower respiratory infection; I13.0 Hypertensive heart and chronic kidney disease with heart failure and stage 1 through stage 4 chronic kidney disease, or unspecified chronic kidney disease; N17.9 Acute kidney failure, unspecified; L30.8 Other specified dermatitis; R53.81 Other malaise; I50.9 Heart failure, unspecified; E11.22 Type 2 diabetes mellitus with diabetic chronic kidney disease; N18.30 Chronic kidney disease, stage 3 unspecified; E11.42 Type 2 diabetes mellitus with diabetic polyneuropathy; N40.0 Benign prostatic hyperplasia without lower urinary tract symptoms; E78.2 Mixed hyperlipidemia; G47.33 Obstructive sleep apnea (adult) (pediatric); Z79.82 Long term (current) use of aspirin; Z79.84 Long term (current) use of oral hypoglycemic drugs; Z79.899 Other long term (current) drug therapy; Z87.891 Personal history of nicotine dependence; Z98.1 Arthrodesis status
CPT/HCPCS: 36415; 36600; 71045; 71250; 80048; 80053; 80076; 82728; 82805; 83605; 83615; 83880; 85025; 85027; 85380; 86140; 87040; 93005; 94618; 94640; 96372; 96374; 97110; 97116; 97161; 97164; 97165; 97168; 97530; 97535; 99285; A9270; J0692; J0696; J1100; J1650; J2405; J7030; J7050

== ENCOUNTER 2020-07-01 14:33 | Outpatient (NON) | payer OTHER, SELFPAY ==
[2020-07-01 15:06] LABS: Anion Gap 6 mmol/L (8-16); Blood Urea Nitrogen 37 mg/dL (9-20); Calcium 9.5 mg/dL (8.4-10.2); Carbon Dioxide 29 mmol/L (22-30); Chloride 102 mmol/L (98-107); Estimated Glomerular Filt Rate 53; Glucose 149 mg/dL (75-110); Potassium 4.9 mmol/L (3.4-5.0); Sodium 137 mmol/L (137-145)
== END 2020-07-01 14:34 ==
PROVIDERS: PCP Internal Medicine; Visit Provider Internal Medicine
DX: J44.0 Chronic obstructive pulmonary disease with (acute) lower respiratory infection (principal); J96.91 Respiratory failure, unspecified with hypoxia; U07.1 COVID-19; J12.82 Pneumonia due to coronavirus disease 2019
CPT/HCPCS: 80048

== ENCOUNTER 2020-07-11 11:23 | Outpatient (NON) | payer OTHER, SELFPAY ==
[2020-07-11 12:19] LABS: Alanine Aminotransferase 18 U/L (4-50); Albumin Level 3.7 g/dL (3.5-5.1); Alkaline Phosphatase 30 U/L (38-126); Anion Gap 6 mmol/L (8-16); Aspartate Amino Transferase 25 U/L (17-59); Bilirubin,Total 0.5 mg/dL (0.2-1.3); Blood Urea Nitrogen 35 mg/dL (9-20); Calcium 9.2 mg/dL (8.4-10.2); Carbon Dioxide 34 mmol/L (22-30); Chloride 96 mmol/L (98-107); Estimated Glomerular Filt Rate 49; Glucose 119 mg/dL (75-110); Potassium 4.7 mmol/L (3.4-5.0); Sodium 136 mmol/L (137-145)
== END 2020-07-11 11:24 ==
PROVIDERS: PCP Internal Medicine; Visit Provider Internal Medicine
DX: U07.1 COVID-19 (principal); J12.82 Pneumonia due to coronavirus disease 2019; J44.0 Chronic obstructive pulmonary disease with (acute) lower respiratory infection; J96.91 Respiratory failure, unspecified with hypoxia
CPT/HCPCS: 80053

== ENCOUNTER 2020-07-31 11:33 | Outpatient (NON) | payer OTHER, SELFPAY ==
[2020-07-31 12:11] LABS: Hematocrit 40.6 % (42.0-52.0); Hemoglobin 12.8 g/dL (14.0-18.0); Mean Corpuscular HGB Conc 31.5 g/dl (32-36); Mean Corpuscular Hemoglobin 30.5 pg (26-34); Mean Corpuscular Volume 96.9 fl (80-100); Mean Platelet Volume 9.2 fl (7.4-10.4); Platelet Count Result 355 k/mm3 (150-375); Red Blood Count 4.19 M/mm3 (4.6-6.20); Red Cell Distribution Width 15.2 % (11.5-14.5); White Blood Count 10.7 K/mm3 (4.5-10.0)
== END 2020-07-31 11:34 ==
PROVIDERS: PCP Internal Medicine; Visit Provider Internal Medicine
DX: J44.0 Chronic obstructive pulmonary disease with (acute) lower respiratory infection (principal); U07.1 COVID-19; J12.82 Pneumonia due to coronavirus disease 2019; J96.91 Respiratory failure, unspecified with hypoxia
CPT/HCPCS: 85027

== ENCOUNTER 2020-08-04 11:31 | Outpatient (CLI) | payer OTHER, SELFPAY ==
--- NOTE | ~2020-08-04 | XR_ITS ---
XR chest 2V 08/04/2020 12:02 Indication: Covid19. Shortness of breath. Procedure: AP and lateral views of the chest Comparison: Comparison to multiple prior studies sequentially, with oldest reviewed study dated 06/13. Findings: Significant improvement in multifocal pneumonia compared with prior examinations. No signif icant pleural effusion or pneumothorax. Heart size normal for technique. There is atherosclerosis. No acute osseous abnormality. Impression: 1: Significant interval improvement of multifocal bilateral pneumonia. Reviewed, dictated and finalized at location A. Impression: 1: Significant interval improvement of multifocal bilateral pneumonia.
== END 2020-08-04 11:32 | disposition home or self-care (01) ==
PROVIDERS: PCP Internal Medicine; Visit Provider Internal Medicine
DX: U07.1 COVID-19 (principal); J12.82 Pneumonia due to coronavirus disease 2019
CPT/HCPCS: 71046

== ENCOUNTER 2020-10-18 10:00 | Emergency (ER) | payer OTHER, SELFPAY ==
[2020-10-18 10:07] VITALS: BP 167/82; PULSE 103; RESP 20; TEMP 35.9; O2SAT 98
--- NOTE | 2020-10-18 10:12 | ED.SKABFB ---
HPI - Skin/Abscess/Foreign Bdy General Chief complaint: Skin/Abscess/Foreign Body Stated complaint: RASH TO BOTH HANDS Time Seen by Provider: 10/18/20 10:05 Source: patient and RN notes reviewed History of Present Illness HPI narrative: Patient is a 80-year-old male who presents the urgent care with complaints of a cracking rash to bilateral hands. Patient states that he has been doing to the dishes for his and noticed all of the dry skin on his hands. Patient states he is diabetic and has had issues in the past on his feet. Patient has been using his prescription ketoconazole on his hands without any improvements. Patient states it does hurt but does not itch. Denies of any fevers. No other acute complaints. No acute distress noted. Patient aware of the plan of care. Some parts of this dictation were generated by voice recognition software and may contain typographical and/or grammatical inaccuracies. Related Data Home Medications Medication Instructions Recorded Confirmed aspirin [Adult Low Dose Aspirin] 81 mg PO DAILY 12/19/19 10/18/20 metformin 500 mg PO BID 05/07/20 10/18/20 omega-3 fatty acids 1,000 mg 1,000 mg PO BID 05/29/20 10/18/20 capsule hydralazine 25 mg PO BID 10/18/20 10/18/20 Allergies Allergy/AdvReac Type Severity Reaction Status Date / Time No Known Allergies Allergy Verified 10/18/20 10:07 Review of Systems Review of Systems: Narrative: CONSTITUTIONAL: Denies fever, chills, or sweats. EYES: Denies visual changes, redness, or discharge. ENT: Denies rhinorrhea, congestion, sore throat, or otalgia. CARDIOVASCULAR: Denies chest pain, palpitations, or edema. RESPIRATORY: Denies cough or dyspnea. GASTROINTESTINAL: Denies abdominal pain, nausea, vomiting, or diarrhea. GENITOURINARY: Denies dysuria or hematuria. SKIN: Reports of a painful cracking rash to bilateral palms MUSCULOSKELETAL: Denies back pain, joint pain, or myalgia. NEUROLOGIC: Denies headache, numbness, or weakness. All other systems reviewed are negative, except as documented in HPI. [facility] Past Medical History Medical History BPH (benign prostatic hyperplasia) Chronic kidney disease, stage 3 Chronic obstructive pulmonary disease, unspecified Essential hypertension Hyperlipidemia Mixed hyperlipidemia ANEUDY (obstructive sleep apnea) Not on CPAP Type 2 diabetes mellitus with diabetic polyneuropathy Surgical History Surgical History History of back surgery Lumbar fusion History of cataract surgery Family History Family History Sibling Patient's sister is in good health Patient's brother is in good health Father Heart disease Acute myocardial infarction Mother Acute myocardial infarction Social History Social History Social History: He lives in [place] with his of 59 years. 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 He quit smoking over 40 years ago. He only had a 15 pack per year smoking history. He denies any alcohol or illicit substance use. Code status: Full code Smoking packs per day: 1 Smoking cigarettes per day: 20.0 Years smoked: 15 Smoking pack-years: 15.00 Smoking status: Former smoker Tobacco type: cigarettes Smoking end date: 08/30/84 Alcohol intake: never Substance use: never Gender identity (if verbalized by the patient): Male Spiritual care concerns: No Comments At the time of my signature, I reviewed and agree with the nursing past medical, surgical, social, and family history. There is no relevant family history pertinent to the patient complaint. Exam Narrative: Exam Narrative: GENERAL: This is a well-nourished, well-developed patient, in no apparent distress. HEAD:
== END 2020-10-18 10:28 | disposition home or self-care (01) ==
PROVIDERS: Emergency Provider Nurse Practitioner Family; PCP Internal Medicine
DX: L24.0 Irritant contact dermatitis due to detergents (principal); Z87.891 Personal history of nicotine dependence; N40.0 Benign prostatic hyperplasia without lower urinary tract symptoms; I12.9 Hypertensive chronic kidney disease with stage 1 through stage 4 chronic kidney disease, or unspecified chronic kidney disease; E11.22 Type 2 diabetes mellitus with diabetic chronic kidney disease; N18.30 Chronic kidney disease, stage 3 unspecified; Z79.84 Long term (current) use of oral hypoglycemic drugs; J44.9 Chronic obstructive pulmonary disease, unspecified; E78.5 Hyperlipidemia, unspecified; G47.33 Obstructive sleep apnea (adult) (pediatric); E11.42 Type 2 diabetes mellitus with diabetic polyneuropathy
CPT/HCPCS: 99213; G0463

== ENCOUNTER 2020-11-05 10:01 | Emergency (ER) | payer OTHER, SELFPAY ==
[2020-11-05 10:08] VITALS: BP 153/87; PULSE 93; RESP 16; TEMP 36.3; O2SAT 98
--- NOTE | 2020-11-05 10:27 | ED.SKABFB ---
HPI - Skin/Abscess/Foreign Bdy General Chief complaint: Skin/Abscess/Foreign Body Stated complaint: RASH ON HANDS Source: patient and RN notes reviewed Limitations: no limitations History of Present Illness HPI narrative: The elderly patient, on several meds inc oral hyperglycemics, here for skin eruption. Patient states this is a second visit for acute eczematous eruption on his bilateral hands. Patient states he was seen here couple weeks ago treated with triamcinolone ointment after he believes the onset of chapped hands from increased washing dishes . No prior/other rashes, and he seems somewhat noncompliant, inc after discussing barrier methods. Will treat with a short course of oral meds- as it is pretty established, and advised to see PMD/head char filter tank tender. Related Data Home Medications Medication Instructions Recorded Confirmed aspirin [Adult Low Dose Aspirin] 81 mg PO DAILY 12/19/19 10/18/20 metformin 500 mg PO BID 05/07/20 10/18/20 omega-3 fatty acids 1,000 mg 1,000 mg PO BID 05/29/20 10/18/20 capsule hydralazine 25 mg PO BID 10/18/20 10/18/20 Allergies Allergy/AdvReac Type Severity Reaction Status Date / Time No Known Allergies Allergy Verified 10/18/20 10:07 Review of Systems Review of Systems: Narrative: General/Constitutional: No weight loss,fever Eyes: N0: Redness,discharge Ears/Nose/Throat: No: Epistaxis,ear discharge Respiratory: Denies: Hemoptysis Gastrointestinal: No Vomiting, Bleeding-rectal Skin: No Lumps, REPORTS eruption Neurologic: No Focal Weakness,Sz Hematologic: Denies: Petechiae/Purpura Psychiatric: No: Suicida ideationl All Other Systems: Reviewed and Negative [facility] Past Medical History Medical History BPH (benign prostatic hyperplasia) Chronic kidney disease, stage 3 Chronic obstructive pulmonary disease, unspecified Essential hypertension Hyperlipidemia Mixed hyperlipidemia ANEUDY (obstructive sleep apnea) Not on CPAP Type 2 diabetes mellitus with diabetic polyneuropathy Surgical History Surgical History History of back surgery Lumbar fusion History of cataract surgery Family History Family History Sibling Patient's sister is in good health Patient's brother is in good health Father Heart disease Acute myocardial infarction Mother Acute myocardial infarction Social History Social History Social History: He lives in [place] with his of 59 years. 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 He quit smoking over 40 years ago. He only had a 15 pack per year smoking history. He denies any alcohol or illicit substance use. Code status: Full code Smoking packs per day: 1 Smoking cigarettes per day: 20.0 Years smoked: 15 Smoking pack-years: 15.00 Smoking status: Former smoker Tobacco type: cigarettes Smoking end date: 08/30/84 Alcohol intake: never Substance use: never Gender identity (if verbalized by the patient): Male Spiritual care concerns: No Comments At time of signature, agree with nursing past medical, surgical, social and family history. There is no relevant family history pertinent to the presenting complaint Exam Narrative: Exam Narrative: General Appearance: Well nourished/overweight, Normocephalic, Conjunctiva clear Skin: Warm, Dry eczematous changes of bilateral hands, in glove distribution Ear: External ear normal Nose: Normal nose, Nare clear Mouth/Throat: Normal appearing Neck Exam: Supple Respiratory: Airway patent, No respiratory distress Musculoskeletal: Moves all extremities, Non tender Neurological: A&O x3, Normal affect Course Vital Signs Vital signs: Vital Signs Temperature 97.3 F L
== END 2020-11-05 10:46 | disposition home or self-care (01) ==
PROVIDERS: Emergency Provider Emergency Medicine; PCP Internal Medicine
DX: L30.9 Dermatitis, unspecified (principal); Z87.891 Personal history of nicotine dependence; N40.0 Benign prostatic hyperplasia without lower urinary tract symptoms; I12.9 Hypertensive chronic kidney disease with stage 1 through stage 4 chronic kidney disease, or unspecified chronic kidney disease; E11.22 Type 2 diabetes mellitus with diabetic chronic kidney disease; N18.30 Chronic kidney disease, stage 3 unspecified; Z79.84 Long term (current) use of oral hypoglycemic drugs; E78.2 Mixed hyperlipidemia
CPT/HCPCS: 99213; G0463

== ENCOUNTER 2021-06-26 08:55 | Outpatient (CLI) | payer OTHER, SELFPAY ==
--- NOTE | 2021-06-26 17:10 | WPDPFTINT ---
PFT Procedure Performed PFT Procedure Performed Spirometry with Pre/Post Bronchodilator Plethysmography (Lung Vol) Diffusing Cap (DLCO) Flow Vol Loop PFT Interpretation This is a pulmonary function test with pre and post-bronchodilator spirometry, plethysmography and diffusing capacity. The test was performed and results interpreted in accordance with the 2019 and 2005 ATS/ERS Task Force guidelines respectively using the Global Lung Function Initiative-2012 reference equations. Patient demonstrated good effort and cooperation. Reproducibility criteria were met. The quality of the pre bronchodilator spirometry maneuver was Grade A and post bronchodilator spirometry maneuver was Grade A. Findings: Spirometry: there is decreased maximal expiratory airflow at all lung volumes with concave expiratory flow tracing. The pre bronchodilator FVC is 4.36 L, 109% predicted. The pre bronchodilator FEV1 is 2.85 L, 97% predicted. The pre bronchodilator FEV1: FVC ratio 65%. The post bronchodilator FVC is 4.27 L, representing a 2% decrease. The post bronchodilator FEV1 is 2.77 L, representing a 3% decrease. The post bronchodilator FEV1: FVC ratio 65%. Plethysmography: Total lung capacity is 5.39 L, 74% predicted. The functional residual capacity is 2.63 L, 67% predicted. The residual volume is 1.03 L, 38% predicted. Diffusing capacity: The diffusion capacity on adjusted for hemoglobin is 17.3, 71% predicted. The diffusing capacity adjusted for alveolar volume is 3.51, 98% predicted. In comparison to the previous pulmonary function test on 05/27/2015 the post bronchodilator FVC has increased from 3.56 L to 4.27 L. The post bronchodilator FEV1 is unchanged from 2.52 L to 2.77 L. The total lung capacity has decreased from 6.82 L to 5.39 L. The functional residual capacity has decreased from 3.30 L to 2.63 L. The residual volume has decreased from 2.92 L to 1.03 L. The diffusing capacity unadjusted for hemoglobin has decreased from 21.5 to 17.3. The diffusing capacity adjusted for alveolar volume is unchanged from 4.03 to 3.51. Impression: There is a combined obstructive and restrictive ventilatory abnormality. There are no guidelines to assign the severity of obstruction and restriction with a combined abnormality. In my opinion, given the mildly concave expiratory flow tracing and mildly decreased FEV1: FVC ratio and mild restrictive abnormality I would state there is a mild obstructive abnormality and a mild restrictive abnormality with a normal FEV1. There is no significant improvement after inhaling a single dose of albuterol. The diffusing capacity is normal. When compared to previous pulmonary function test on 05/27/2015 there has been a greater than anticipated time dependent decrease in total lung capacity, functional residual capacity, residual volume, and diffusing capacity on adjusted for hemoglobin. There has been a greater than anticipated time dependent increase in FVC and no significant change in the FEV1 or diffusing capacity adjusted for alveolar volume. Clinical correlation is recommended.
== END 2021-06-26 08:56 | disposition home or self-care (01) ==
LOC: ANHPFT 08:56
PROVIDERS: PCP Internal Medicine; Visit Provider Internal Medicine Pulmonary Disease
DX: R06.00 Dyspnea, unspecified (principal); R94.2 Abnormal results of pulmonary function studies
CPT/HCPCS: 94060; 94726; 94729

== ENCOUNTER 2021-12-10 08:06 | Emergency (ER) | payer OTHER, SELFPAY ==
[2021-12-10 08:16] LABS: Glucose Point of Care 167 mg/dl (65-105)
[2021-12-10 08:20] VITALS: BP 146/81; PULSE 99; RESP 16; TEMP 37.8; O2SAT 96
--- NOTE | 2021-12-10 08:34 | ED.GENADULT ---
HPI - General Adult General Chief complaint: Weakness Stated complaint: weakness/congestion Time Seen by Provider: 12/10/21 08:10 Source: patient Mode of arrival: ambulatory Limitations: no limitations History of Present Illness HPI narrative: Patient presents today complaining of 2-day history of dry cough, sore throat, mild headache, and weakness. Denies shortness of breath, fever, or any additional symptoms. Patient was exposed to his brother who has recently tested positive for COVID-19. Patient had COVID-19 in May 2020 and was to a point where he did declined to be placed on a ventilator. He no longer wears oxygen, but is followed by pulmonology. He does have COPD, A. fib for which she is on Eliquis. Related Data Home Medications Medication Instructions Recorded Confirmed omega-3 fatty acids 1,000 mg 1,000 mg PO BID 05/29/20 12/10/21 capsule (Fish Oil Concentrate) magnesium 1 tablet PO DIRECTED 12/10/21 12/10/21 multivit with minerals-iron 18 1 tablet PO DAILY 12/10/21 12/10/21 mg-folic ac 400 mcg-vit K 25 mcg tablet (Adults Multivitamin) omega-3 fatty acids 1,000 mg PO DAILY 12/10/21 12/10/21 vitamin B complex (B 1 tablet PO DAILY 12/10/21 12/10/21 Complex-Vitamin B12 tablet) Allergies Allergy/AdvReac Type Severity Reaction Status Date / Time No Known Allergies Allergy Verified 11/25/21 09:15 Review of Systems Review of Systems: CONSTITUTIONAL: Denies body aches, fever, chills, or sweats.+ Weakness EYES: Denies visual changes, redness, or discharge. ENT: Denies rhinorrhea, congestion, or otalgia.+ Sore throat CARDIOVASCULAR: Denies chest pain, palpitations, or edema. RESPIRATORY: Denies dyspnea.+ Cough GASTROINTESTINAL: Denies abdominal pain, nausea, vomiting, or diarrhea. GENITOURINARY: Denies dysuria or hematuria. SKIN: Denies rash, itching, or wounds. MUSCULOSKELETAL: Denies back pain, joint pain, or myalgia. NEUROLOGIC: Denies numbness, tingling. + Headache PSYCH: Denies depression or anxiety. [facility] Past Medical History Medical History BPH (benign prostatic hyperplasia) Chronic kidney disease, stage 3 Chronic obstructive pulmonary disease, unspecified Essential hypertension Hyperlipidemia Mixed hyperlipidemia ANEUDY (obstructive sleep apnea) Not on CPAP Type 2 diabetes mellitus with diabetic polyneuropathy Surgical History Surgical History History of back surgery Lumbar fusion History of cataract surgery Family History Family History (Reviewed 12/10/21 @ 08:59 by Kathrine Thompson, [facility], ) Sibling Patient's sister is in good health Patient's brother is in good health Father Heart disease Acute myocardial infarction Mother Acute myocardial infarction Social History Social History (Reviewed 12/10/21 @ 08:59 by Kathrine Thompson, [facility], ) Social History: He lives in [place] with his of 59 years. 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 He quit smoking over 40 years ago. He only had a 15 pack per year smoking history. He denies any alcohol or illicit substance use. Code status: Full code Smoking packs per day: 1 Smoking cigarettes per day: 20.0 Years smoked: 15 Smoking pack-years: 15.00 Smoking status: Former smoker Tobacco type: cigarettes Second hand tobacco smoke exposure: Yes Smoking end date: 08/30/84 Alcohol intake: never Substance use: never Gender identity (if verbalized by the patient): Male Sexual Orientation (if Verbalized by the Patient): Straight or Heterosexual Spiritual care concerns: No Comments At time of signature, I have reviewed and agree with nursing past medical, surgical, social and family history unless otherwise noted. Please see nursing chart for further information. There is no relevant family his
== END 2021-12-10 08:55 | disposition home or self-care (01) ==
PROVIDERS: Emergency Provider Nurse Practitioner
DX: U07.1 COVID-19 (principal); N40.0 Benign prostatic hyperplasia without lower urinary tract symptoms; I12.9 Hypertensive chronic kidney disease with stage 1 through stage 4 chronic kidney disease, or unspecified chronic kidney disease; E11.22 Type 2 diabetes mellitus with diabetic chronic kidney disease; N18.32 Chronic kidney disease, stage 3b; J44.9 Chronic obstructive pulmonary disease, unspecified; E78.2 Mixed hyperlipidemia; G47.30 Sleep apnea, unspecified; E11.42 Type 2 diabetes mellitus with diabetic polyneuropathy; Z79.84 Long term (current) use of oral hypoglycemic drugs
CPT/HCPCS: 82948; 87426; 87804; 99213; C9803; G0463

== ENCOUNTER 2022-01-20 07:30 | Outpatient (CLI) | payer OTHER, SELFPAY ==
--- NOTE | 2022-01-20 08:02 | ECHO_ITS ---
Patient Info Name: Christian Villa Age: 81 years : 1940 Gender: Male Ht: 71 in Wt: 243 lbs BSA: 2.39 m2 HR: 71 bpm BP: 138 / 89 mmHg Heart Rhythm: Atrial Fibrillation Technical Quality: Fair Exam Date: 01/20/2022 8:25 AM Exam Location: [facility] Patient Status: Outpatient Admit Date: 01/20/2022 Staff Ordering Physician: Colby Noonan DO Ground Defence Officer: Aguilar Dowell RDCS, RT Attending Provider: Colby Noonan DO Referring Physician: Saran GRAHAM; Exam Type: CA echo doppler color flow Study Info Indications I48.0 - Paroxysmal atrial fibrillation Complete two-dimensional, color flow and Doppler transthoracic echocardiogram is performed. Strain analysis performed. Summary 1. Complete two-dimensional, color flow and Doppler transthoracic echocardiogram is performed. 2. Left ventricular chamber dimension is normal. 3. Left ventricular systolic function is normal, estimated at 65-70%. 4. There is mildly increased left ventricular wall thickness. 5. The left ventricular diastolic function is abnormal. 6. E/e' 14 is mildly elevated. 7. Global longitudinal strain is abnormal at -14.9%. 8. Atrial fibrillation. 9. Right ventricular systolic function is reduced based on abnormal TAPSE 1.2 cm. 10. Left atrial chamber dimension is moderately enlarged. 11. Right atrial chamber dimension is mildly enlarged. 12. There is mild to moderate mitral valve regurgitation. 13. There is mild to moderate tricuspid valve regurgitation. 14. No pulmonary hypertension, estimated pulmonary arterial systolic pressure is 34 mmHg. Left Ventricle E/e' 14 is mildly elevated. Global longitudinal strain is abnormal at -14.9%. Atrial fibrillation. Left ventricular chamber dimension is normal. Left ventricular systolic function is normal, estimated at 65-70%. There is mildly increased left ventricular wall thickness. The left ventricular diastolic function is abnormal. Right Ventricle Right ventricular systolic function is reduced based on abnormal TAPSE 1.2 cm. Right ventricular chamber dimension is not well visualized. Left Atria Left atrial chamber dimension is moderately enlarged. Right Atria Right atrial chamber dimension is mildly enlarged. Aortic Valve The aortic valve is trileaflet. There is no aortic valve stenosis. There is no aortic valve regurgitation. Pulmonic Valve There is no pulmonic regurgitation. Mitral Valve There is no mitral valve stenosis. There is mild to moderate mitral valve regurgitation. Tricuspid Valve There is mild to moderate tricuspid valve regurgitation. No pulmonary hypertension, estimated pulmonary arterial systolic pressure is 34 mmHg. Pericardium/Pleural There is no pericardial effusion. Inferior Vena Cava Normal inferior vena cava with >50% collapse upon inspiration consistent with normal right atrial pressure, 5 mmHg. Aorta The aortic root size at the sinus of Valsalva is normal. Left Ventricular Outflow Tract Name Value Normal LVOT 2D LVOT Diameter 2.1 cm LVOT Doppler LVOT Peak Gradient 3 mmHg LVOT Mean Gradient
== END 2022-01-20 07:31 | disposition home or self-care (01) ==
LOC: ANHCARD 07:34
PROVIDERS: PCP Internal Medicine; Visit Provider Internal Medicine Cardiovascular Disease
DX: I48.91 Unspecified atrial fibrillation (principal); I34.0 Nonrheumatic mitral (valve) insufficiency; I36.1 Nonrheumatic tricuspid (valve) insufficiency
CPT/HCPCS: 93306

== ENCOUNTER 2022-03-10 13:24 | Observation (INO) | payer OTHER, SELFPAY ==
[2022-03-10] VITALS (33 sets, daily range): BP systolic 138–180; BP diastolic 63–105; PULSE 65–128; RESP 9–26; TEMP 36.6–36.9; O2SAT 93–99; BMI 33.4
--- NOTE | ~2022-03-10 | CT_ITS ---
EXAMINATION: CT brain wo con DATE: 03/10/2022 15:01 INDICATION: Dizziness. Weakness. TECHNIQUE: Computed tomography (CT) of the head was performed without intravenous contrast. The mA wa s adjusted according to patient size. Iterative reconstruction technique was employed. The dose-lengt h product was 605.33 mGy-cm. COMPARISON: None FINDINGS: There are scattered areas of low attenuation in the cerebral white matter. There is an 11 m m hyperdense mass in right occipital lobe. There is no acute infarction or abnormal intracranial mass lesion. The ventricles are normal in size. There are likely changes of ocular lens replacement surge beka. There is mild mucosal thickening in the paranasal sinuses. There is a left frontal scalp lipoma . The mastoid air cells are normal. IMPRESSION: 1. 11 mm hyperdense mass in right occipital lobe. The differential diagnosis includes dystrophic calc ifications, neoplasm, cavernoma, and acute intraparenchymal hematoma. Brain MRI without and with cont rast is recommended. Reviewed, dictated and finalized at location A. IMPRESSION: 1. 11 mm hyperdense mass in right occipital lobe. The differential diagnosis in cludes dystrophic calcifications, neoplasm, cavernoma, and acute intraparenchym al hematoma. Brain MRI without and with contrast is recommended.
--- NOTE | ~2022-03-10 | MR_ITS ---
EXAMINATION: MR brain/brain stem wo/w con DATE: 03/11/2022 09:51 INDICATION: Mass in the right occipital lobe TECHNIQUE: Magnetic resonance imaging (MRI) of the brain and brainstem was performed without and with 20 mL Multihance intravenous contrast. Sequences included sagittal and axial T1-weighted SE, axial d iffusion-weighted FS SE, axial T2*-weighted GRE, axial 3D SWAN, axial T2-weighted FLAIR, and axial T2 -weighted FSE. Postcontrast axial and coronal T1-weighted SE was obtained. Apparent diffusion coeffic ient (ADC) maps were created. COMPARISON: Head CT and brain CT angiogram dated 03/10/2022 FINDINGS: 9 x 6 mm lesion in the right occipital lobe on T2-weighted imaging which is peripherally hypointense with curvilinear high T2 signal There is mild increased T1 signal of comparable degree on both the pr e and postcontrast T1-weighted sequences which corresponds to the increased attenuation on prior CT c onsistent with minimal hemorrhage. No definitive enhancement above the baseline T1 signal. Also consi stent with chronic blood products is the prominent signal dropout on the SWAN and T2* sequences. 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 Ther e are no areas of restricted diffusion to suggest acute infarction. No intracranial hemorrhage or abn ormal intracranial mass lesion. There are scattered areas of nonspecific increased T2-weighted signal intensity in the cerebral white matter, predominantly involving the deep and periventricular white m atter which is within normal limits for age and likely sequela of chronic small vessel ischemic disea se. There are no intraparenchymal signal abnormalities seen on the other pulse sequences. The ventric les are symmetric and normal in size. There are no abnormal extra-axial fluid collections. Flow voids are seen in the cerebral arteries on the T2-weighted sequences consistent with their expected patenc y. Changes of bilateral intraocular lens replacement. 3.1 x 2.9 x 0.7 cm lenticular lipoma in the franklin p anterior left frontal scalp. Visualized orbits and soft tissues are otherwise unremarkable. There a re no areas of abnormal enhancement on the post contrast images. IMPRESSION: 1. 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 2. Moderate scattered periventricular predominant white matter T2 hyperintensity which is within norm al limits for age and likely sequela of chronic small vessel ischemic disease. Reviewed, dictated and finalized at location A. IMPRESSION: 1. 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 2. Moderate scattered periventricular predominant white matter T2 hyperintensit y which is within normal limits for age and likely sequela of chronic small ves adonis ischemic disease.
--- NOTE | ~2022-03-10 | CT_ITS ---
EXAMINATION: CTA brain carotid DATE: 03/10/2022 17:34 INDICATION: Dizziness. Vertigo. TECHNIQUE: Computed tomographic angiography (CTA) of the head was performed with 100 mL Omnipaque-350 intravenous contrast. CTA of the neck was performed with intravenous contrast. The dose-length produ ct was 1211.53 mGy-cm. Maximum intensity projection and volume rendered 3D-reconstructions were creat ed by the technologist on a separate workstation. COMPARISON: Head CT 03/10/2022 FINDINGS: HEAD CTA: The hyperdense mass in right occipital lobe described on the prior CT is not well visualize d. There is no acute ischemic infarct. The ventricles are normal in size. There is a lipoma in left f rontal scalp. There is mild mucosal thickening in the paranasal sinuses. There are likely changes of ocular lens replacement surgeries. The mastoid air cells are normal. The vertebral arteries are codom inant. There is no significant stenosis of basilar artery or the posterior cerebral arteries. There i s no significant stenosis of the intracranial internal carotid arteries or anterior or middle cerebra l arteries. Anterior communicating artery is normal. There is no aneurysm. NECK CTA: The visualized portions of the lung apices demonstrates mild atelectasis. A calcified right lung nodule is consistent with old granulomatous disease. There is a 4 mm nodule in right upper lobe , likely benign. There are no pathologically enlarged lymph nodes. There is no significant stenosis o f the vertebral arteries. There is plaque in the proximal internal carotid arteries. There is 32% selma nosis of the proximal right internal carotid artery relative to normal distal artery lumen diameter ( NASCET criteria). There is 14% stenosis of the proximal left internal carotid artery relative to norm al distal artery lumen diameter. IMPRESSION: 1. No aneurysm or significant intracranial arterial stenosis. 2. 32% stenosis of the proximal right internal carotid artery relative to normal distal artery lumen diameter (NASCET criteria). 3. 14% stenosis of the proximal left internal carotid artery relative to normal distal artery lumen d iameter. Reviewed, dictated and finalized at location A. IMPRESSION: 1. No aneurysm or significant intracranial arterial stenosis. 2. 32% stenosis of the proximal right internal carotid artery relative to bulmar[place] l distal artery lumen diameter (NASCET criteria). 3. 14% stenosis of the proximal left internal carotid artery relative to normal distal artery lumen diameter.
--- NOTE | 2022-03-10 13:32 | ECG_ITS ---
Measurements Intervals [place] Rate: 84 P: ID: 0 QRS: -74 QRSD: 96 T: 19 QT: 341 QTc: 403 Interpretive Statements ATRIAL FIBRILLATION BASELINE ARTIFACT PATTERN CONSISTENT WITH PULMONARY DISEASE LEFT ANTERIOR FASCICULAR BLOCK ABNORMAL ECG COMPARED TO ECG 06/10/2020 17:21:23 ATRIAL FIBRILLATION NOW PRESENT Electronically Signed On 03-10-2022 16:23:09 CDT by Jorge A Martin M.D.
--- NOTE | 2022-03-10 14:03 | ED.GENADULT ---
HPI - General Adult General Chief complaint: Unspecified Stated complaint: dizzy Time Seen by Provider: 03/10/22 13:44 History of Present Illness HPI narrative: 81-year-old male presented emergency department for evaluation of worsened dizziness. Patient states that since he had COVID in 2020 he has had intermittent issues with dizziness. Patient states that his current dizziness started approximately 2 hours ago and has been persistent. Patient feels it does worsen when he stands up. Patient has history of atrial fibrillation and is on apixaban Related Data Home Medications Medication Instructions Recorded Confirmed magnesium 1 tablet PO DIRECTED 12/10/21 03/10/22 multivit with minerals-iron 18 1 tablet PO DAILY 12/10/21 03/10/22 mg-folic ac 400 mcg-vit K 25 mcg tablet (Adults Multivitamin) omega-3 fatty acids 1,000 mg PO DAILY 12/10/21 03/10/22 vitamin B complex (B 1 tablet PO DAILY 12/10/21 03/10/22 Complex-Vitamin B12 tablet) diltiazem HCl 180 mg 180 mg PO DAILY 03/10/22 03/10/22 capsule,extended release 24 hr fluticasone 250 mcg-salmeterol 50 1 inh inhalation BID 03/10/22 03/10/22 mcg/dose blistr powdr for inhalation ([facility] Inhub) Allergies Allergy/AdvReac Type Severity Reaction Status Date / Time No Known Allergies Allergy Verified 03/09/22 07:59 [facility] Past Medical History Medical History BPH (benign prostatic hyperplasia) Chronic kidney disease, stage 3 Chronic obstructive pulmonary disease, unspecified Essential hypertension Hyperlipidemia Mixed hyperlipidemia ANEUDY (obstructive sleep apnea) Not on CPAP Type 2 diabetes mellitus with diabetic polyneuropathy Surgical History Surgical History History of back surgery Lumbar fusion History of cataract surgery Family History Family History Sibling Patient's sister is in good health Patient's brother is in good health Father Heart disease Acute myocardial infarction Mother Acute myocardial infarction Social History Social History Social History: He lives in [place] with his of 59 years. 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 He quit smoking over 40 years ago. He only had a 15 pack per year smoking history. He denies any alcohol or illicit substance use. Code status: Full code Smoking packs per day: 1 Smoking cigarettes per day: 20.0 Years smoked: 15 Smoking pack-years: 15.00 Smoking status: Former smoker Tobacco type: cigarettes Second hand tobacco smoke exposure: No Smoking end date: [birth year]/16/1950 Alcohol intake: never Substance use: never Substance use type: does not use Has the Lack of Transportation Kept You From Medical Appointments or From Getting Medications?: No Within the Past 12 Months, Were You Worried Whether Your Food Would Run Out Before You Got Money to Buy More?: Never True What is Your Housing Situation Today?: I Have Housing Are You Worried That in the Next 2 Months, You May Not Have Your Own Housing to Live In?: No Do You Have Trouble Paying Your Heating Or Electricity Bill?: No Do You Have Trouble Paying For Medicines?: No Are You Currently Unemployed and Looking for Work?: No Highest Level of Education Completed: High School Diploma/GED Do You Have Trouble With Childcare or the Care of a Family Member?: No Gender identity (if verbalized by the patient): Male Sexual Orientation (if Verbalized by the Patient): Straight or Heterosexual Spiritual care concerns: No Course Course Emergency Course: Patient was treated with meclizine for his vertigo with no significant improvement. CT showed evidence of a occipital mass. Case was discussed with neurosurgery
[2022-03-10 14:07] LABS: Alanine Aminotransferase 22 U/L (6-50); Albumin Level 4.2 g/dL (3.5-5.1); Alkaline Phosphatase 30 U/L (38-126); Anion Gap 17 mmol/L (8-16); Aspartate Amino Transferase 23 U/L (17-59); Bilirubin,Total 0.5 mg/dL (0.2-1.3); Blood Urea Nitrogen 38 mg/dL (9-20); Calcium 9.5 mg/dL (8.4-10.2); Carbon Dioxide 23 mmol/L (22-30); Chloride 99 mmol/L (98-107); Estimated CRCL calculation 40 ml/min; Estimated Glomerular Filt Rate 39; Glucose 216 mg/dL (65-110); Potassium 4.2 mmol/L (3.4-5.0); Sodium 139 mmol/L (137-145)
[2022-03-10 14:12] LABS: Basophils Absolute Auto 0.1 K/mm3 (0.0-0.1); Basophils Percent Auto 0.6 % (0.2-1.2); Eosinophils Absolute Auto 0.2 K/mm3 (0-0.3); Eosinophils Percent Auto 1.7 % (0-4.4); Hemoglobin 15.8 g/dL (14.0-18.0); Immature Granulocyte Absolute 0.04 K/mm3 (0.00-0.031); Immature Granulocyte Percent A 0.4 % (0-0.5); Lymphocytes Percent Auto 36.8 % (18.3-44.2); Mean Corpuscular HGB Conc 32.9 g/dl (32-36); Mean Corpuscular Volume 94.1 fl (80-100); Mean Platelet Volume 9.4 fl (7.4-10.4); Monocytes Absolute Auto 0.7 K/mm3 (0.1-0.6); Monocytes Percent Auto 6.8 % (2.6-8.5); Neutrophils Absolute Auto 5.1 K/mm3 (1.3-6.7); Neutrophils Percent Auto 53.7 % (45.5-73.1); Platelet Count Result 279 k/mm3 (150-375); Red Cell Distribution Width 15.8 % (11.5-14.5); White Blood Count 9.5 K/mm3 (4.5-10.0)
[2022-03-10 14:41] LABS: Influenza A QL RT-PCR Negative (Negative); Influenza B QL RT-PCR Negative (Negative); SARS-CoV-2 RNA PCR Negative
[2022-03-10] MEDS: MECLIZINE HCL 25 MG TABLET PO (14:44)
--- NOTE | 2022-03-10 16:39 | PC.NURSE ---
patient to restroom by wheelchair. gait very unsteady. assistance x1. patient request to sit in wheelchair. call light within reach. Dr. Paige aware of gait instability
[2022-03-10 17:29] LABS: INR 1.1; Prothrombin Time 13.6 Seconds (11.1-14.7)
--- NOTE | 2022-03-10 19:39 | ADMGEN ---
This patient, Christian Villa, was admitted to Medical Room 258-. Patient/family oriented to hospital policies and general routines including ID bracelet, bed and alarms, visiting hours, pain management, procedures, bathroom and other care routines, personal items, smoking policy, room service/diet, and visiting hours. Information on how to activate the Rapid Response Team has been discussed. Patient/Family are encouraged to report perceived risks to care and to ask questions if they do not understand what they are told or what they should do.
--- NOTE | 2022-03-10 21:14 | PM.IMHP ---
H&P: HPI History of Present Illness Date/Time: 03/10/22 21:14 Chief Complaint: Dizziness Narrative: this is a 81-year-old male patient who came to the emergency department for evaluation of worsening dizziness. The patient stated since he had COVID in 2020 he has had intermittent issues with dizziness. The patient stated that when he had COVID he was in the hospital for 3 weeks. Patient's dizziness got worse proximally 2 hours prior to coming to the emergency room. The patient feels like it gets worse when he stands up. He does have a history of atrial fibrillation and is on apixaban. The patient stated that he has not fallen. The patient was just seen in his primary care doctor's office 2 days ago. The only complaint he had at that time was fatigue. Head neck CTA was read as the following 1No aneurysm or significant intracranial arterial stenosis. 2. 32% stenosis of the proximal right internal carotid artery relative to normal distal artery lumen diameter (NASCET criteria). 3. 14% stenosis of the proximal left internal carotid artery relative to normal distal artery lumen diameter. head CT was read as the following?11 mm hyperdense mass in right occipital lobe. The differential diagnosis includes dystrophic calcifications, neoplasm, cavernoma, and acute intraparenchymal hematoma. Brain MRI without and with contrast is recommended. neurosurgeon as well as Neurology has been consulted. Meclizine was given. The patient is being admitted to observation status on the date of service of 03/10/2022. Review of Systems Review of Systems: See HPI All systems reviewed & are unremarkable except as noted in HPI and below Constitutional: Constitutional: Reports as per HPI and Reports no additional constitutional complaints Eyes: Eyes: Reports as per HPI and Reports no additional eye complaints ENT: Reports system reviewed and no additional complaints, except as documented and Reports Normal hearing present Cardiovascular: Cardiovascular: Reports no additional cardiovascular complaints Respiratory: Respiratory: Reports no additional respiratory complaints and Reports no additional respiratory complaints Gastrointestinal: Gastrointestinal: Reports as per HPI and Reports no additional gastrointestinal complaints Musculoskeletal: Musculoskeletal: Reports no additional musculoskeletal complaints Integumentary/Breasts: Skin/Breast: Reports system reviewed and no additional complaints, except as docu and Reports as per HPI Neurologic: Reports system reviewed and no additional complaints, except as documented, Reports as per HPI and Reports Normal hearing present Psychiatric: Psychiatric: Reports no additional psychiatric complaints and Reports as per HPI Endocrine: Endocrine: Reports no additional endocrine complaints Hematologic/Lymphatic: Hematologic/Lymphatic: Reports no additional hematologic/lymphatic complaints Allergic/Immunologic: Allergic/Immunologic: Reports no additional allergic/immunologic complaints [facility] Past Medical History Medical History (Updated 03/11/22 @ 00:10 by Allison Hopson NP) BPH (benign prostatic hyperplasia) Chronic kidney disease, stage 3 Chronic obstructive pulmonary disease, unspecified COVID-19 Encounter for general health examination Essential hypertension Hyperlipidemia Irregular heart rhythm Long COVID Mixed hyperlipidemia ANEUDY (obstructive sleep apnea) Not on CPAP ANEUDY (obstructive sleep apnea) Pneumonia due to COVID-19 virus Respiratory failure with hypoxia Tachycardia Type 2 diabetes mellitus with diabetic polyneuropathy Surgical History Surgical History History of back surgery Lumbar fusion History of cataract surgery Family History Family History Sibling Patient's sister is in good health Patient's brother is in good health Father Heart disease Acute myocardial i
[2022-03-11 04:00] VITALS: PULSE 61
[2022-03-11 05:02] VITALS: BP 153/86; PULSE 63; RESP 16; TEMP 36.6; O2SAT 92
[2022-03-11 05:21] LABS: Basophils Percent Auto 0.6 % (0.2-1.2); Eosinophils Absolute Auto 0.2 K/mm3 (0-0.3); Eosinophils Percent Auto 2.1 % (0-4.4); Hemoglobin 14.4 g/dL (14.0-18.0); Immature Granulocyte Absolute 0.03 K/mm3 (0.00-0.031); Immature Granulocyte Percent A 0.4 % (0-0.5); Lymphocytes Absolute Auto 2.75 K/mm3 (0.9-3.2); Lymphocytes Percent Auto 38.5 % (18.3-44.2); Mean Corpuscular Hemoglobin 30.4 pg (26-34); Mean Corpuscular Volume 94.9 fl (80-100); Mean Platelet Volume 9.3 fl (7.4-10.4); Monocytes Absolute Auto 0.7 K/mm3 (0.1-0.6); Monocytes Percent Auto 9.5 % (2.6-8.5); Neutrophils Absolute Auto 3.5 K/mm3 (1.3-6.7); Neutrophils Percent Auto 48.9 % (45.5-73.1); Platelet Count Result 230 k/mm3 (150-375); Red Blood Count 4.74 M/mm3 (4.6-6.20); Red Cell Distribution Width 15.7 % (11.5-14.5); White Blood Count 7.1 K/mm3 (4.5-10.0)
[2022-03-11 05:26] LABS: Alanine Aminotransferase 19 U/L (6-50); Albumin Level 3.5 g/dL (3.5-5.1); Alkaline Phosphatase 27 U/L (38-126); Anion Gap 9 mmol/L (8-16); Aspartate Amino Transferase 18 U/L (17-59); Bilirubin,Total 0.4 mg/dL (0.2-1.3); Blood Urea Nitrogen 35 mg/dL (9-20); Calcium 8.8 mg/dL (8.4-10.2); Carbon Dioxide 26 mmol/L (22-30); Chloride 105 mmol/L (98-107); Estimated CRCL calculation 44 ml/min; Estimated Glomerular Filt Rate 45; Glucose 108 mg/dL (65-110); Magnesium 2.6 mg/dL (1.6-2.3); Potassium 4.1 mmol/L (3.4-5.0); Sodium 140 mmol/L (137-145)
[2022-03-11 05:32] LABS: Lactic Acid Reflex 1.5 mmol/L (0.7-2.0)
[2022-03-11 05:34] LABS: Hemoglobin A1C 7.6 % (<5.7)
[2022-03-11 08:00] VITALS: PULSE 95
--- NOTE | 2022-03-11 08:41 | WPDNEUROSGCN ---
Assessment and Plan Assessment and plan (1) Brain mass: Code(s): G93.89 - Other specified disorders of brain Status: Acute Plan Mr. Villa is an 81-year-old male with history of Afib on Eliquis who presented yesterday with a worsened dizziness episode compared to the usual episodes he has been experiencing since COVUT. He was admitted for observation overnight and is feeling much better this morning. He has no focal deficits on neurologic exam aside from decreased left-sided hearing which is his baseline. CT head shows a right occipital 1.5 x 1.5cm hyperdensity. I believe this is likely an incidental finding as he does not seem to have any symptoms related to this. I do not believe it is the cause of his dizziness. I recommend MRI brain without/with contrast to better evaluate the lesion. With respect to the dizziness, I would recommend ENT evaluation as this has been persistent over the last year and is relatively bothersome for him. Review of Systems Review of Systems: 14-point ROS was conducted and was negative aside for the symptoms listed above PMFSH Past Medical History Medical History (Updated 03/11/22 @ 00:10 by Allison Hopson NP) BPH (benign prostatic hyperplasia) Chronic kidney disease, stage 3 Chronic obstructive pulmonary disease, unspecified COVID-19 Encounter for general health examination Essential hypertension Hyperlipidemia Irregular heart rhythm Long COVID Mixed hyperlipidemia ANEUDY (obstructive sleep apnea) Not on CPAP ANEUDY (obstructive sleep apnea) Pneumonia due to COVID-19 virus Respiratory failure with hypoxia Tachycardia Type 2 diabetes mellitus with diabetic polyneuropathy Surgical History Surgical History History of back surgery Lumbar fusion History of cataract surgery Family History Family History Sibling Patient's sister is in good health Patient's brother is in good health Father Heart disease Acute myocardial infarction Mother Acute myocardial infarction Social History Social History (Updated 03/11/22 @ 00:04 by Allison Hopson NP) Social History: He lives in [place] with his of 60 years. 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 He quit smoking over 50 years ago. He only had a 15 pack per year smoking history. He denies any alcohol or illicit substance use. Code status: Full code Smoking packs per day: 1 Smoking cigarettes per day: 20.0 Years smoked: 15 Smoking pack-years: 15.00 Smoking status: Former smoker Tobacco type: cigarettes Second hand tobacco smoke exposure: No Smoking end date: 05/16/1950 Alcohol intake: never Substance use: never Substance use type: does not use Has the Lack of Transportation Kept You From Medical Appointments or From Getting Medications?: No Within the Past 12 Months, Were You Worried Whether Your Food Would Run Out Before You Got Money to Buy More?: Never True What is Your Housing Situation Today?: I Have Housing Are You Worried That in the Next 2 Months, You May Not Have Your Own Housing to Live In?: No Do You Have Trouble Paying Your Heating Or Electricity Bill?: No Do You Have Trouble Paying For Medicines?: No Are You Currently Unemployed and Looking for Work?: No Highest Level of Education Completed: High School Diploma/GED Do You Have Trouble With Childcare or the Care of a Family Member?: No Gender identity (if verbalized by the patient): Male Sexual Orientation (if Verbalized by the Patient): Straight or Heterosexual Spiritual care concerns: No Meds Home Medications and Allergies Home Medications Medication Instructions Recorded Confirmed Type albuterol sulfate 90 mcg/actuation 2 puff inhalation Q4H PRN 11/27/19 03/10/22 Rx aerosol inhaler (ProAir HFA) shortness of breath or wheezi
[2022-03-11 08:55] LABS: Glucose Point of Care 140 mg/dl (65-105)
[2022-03-11] MEDS: VITAMIN B COMPLEX CAPSULE 1 CAP PO (09:07)
[2022-03-11] MEDS: MULTIVITAMINS /C LUTEIN (CENTRUM SILVER) TABLET *BKC 1 TAB PO (09:07)
[2022-03-11] MEDS: TAMSULOSIN HCL 0.4 MG CAPSULE PO (09:07)
[2022-03-11] MEDS: dilTIAZem HCL CD 180 MG CAP.ER.24H PO (09:07)
[2022-03-11] MEDS: FINASTERIDE 5 MG TABLET PO (09:07)
[2022-03-11] MEDS: OMEGA 3 POLYUNSAT FATTY ACIDS 1 GM CAP PO (09:07)
[2022-03-11] MEDS: PRAVASTATIN SODIUM 20 MG TABLET 40 MG PO (09:07)
[2022-03-11] MEDS: MAGNESIUM OXIDE 200 MG TABLET PO (09:07)
[2022-03-11] MEDS: SPIRONOLACTONE 12.5 MG TABLET PO (09:07)
[2022-03-11] MEDS: FUROSEMIDE 40 MG TABLET PO ×2 (09:07→16:27)
[2022-03-11] MEDS: APIXABAN 2.5 MG TABLET BY MOUTH ×2 (09:08→16:27)
--- NOTE | 2022-03-11 09:36 | WPDNEURCNPN ---
Assessment and Plan Assessment and plan (1) Vertigo: Code(s): R42 - Dizziness and giddiness Status: Acute (2) Brain mass: Code(s): G93.89 - Other specified disorders of brain Status: Acute Plan Mr. Villa is an 81 year old male with a history of a fib, HTN, HLD, and diabetes presenting due to persistent dizziness. CT with incidental finding of R occipital mass, MRI confirmed venous cavernous malformation. Seems unlikely to be the cause of vertigo. No visual symptoms. Differential includes BPPV, labyrinthitis, vestibular neuritis, Meniere's. - Refer to ENT and vestibular therapy Consult date: 03/11/22 Time Seen: 09:37 Reason for consult: Dizziness HPI: Christian Villa is a 81 year old male with a history of atrial fibrillation, CKD, COPD, HTN, HLD, ANEUDY, diabetes who presented on 03/10 due to dizziness. Patient has had episodes of dizziness since he had COVID in 2020. The dizziness is primarily with raising his head or bending it down, there also seems to be a positional component to it. He presented to the ED due to 2 hour episode of dizziness. He received meclizine without significant improvement. BP was in 150s/80s. CT head showed 11mm hyperdense mass in the right occipital lobe. CTA showed 32% stenosis in R ICA and 14% stenosis in L ICA. Neurosurgery was consulted and MRI was ordered for further characterization of the lesion which showed findings consistent with cavernous venous malformation. Review of Systems Constitutional: Constitutional: Reports no additional constitutional complaints Eyes: Eyes: Reports no additional eye complaints ENT: Denies tinnitus Comments: chronic hearing loss Cardiovascular: Cardiovascular: Reports no additional cardiovascular complaints Respiratory: Respiratory: Reports no additional respiratory complaints Gastrointestinal: Gastrointestinal: Reports no additional gastrointestinal complaints Genitourinary: Genitourinary: Reports urinary hesitancy Musculoskeletal: Musculoskeletal: Reports no additional musculoskeletal complaints Integumentary/Breasts: Skin/Breast: Reports system reviewed and no additional complaints, except as docu Neurologic: Reports as per HPI and Reports vertigo Psychiatric: Psychiatric: Reports no additional psychiatric complaints PMFSH Past Medical History Medical History BPH (benign prostatic hyperplasia) Chronic kidney disease, stage 3 Chronic obstructive pulmonary disease, unspecified COVID-19 Encounter for general health examination Essential hypertension Hyperlipidemia Irregular heart rhythm Long COVID Mixed hyperlipidemia ANEUDY (obstructive sleep apnea) Not on CPAP ANEUDY (obstructive sleep apnea) Pneumonia due to COVID-19 virus Respiratory failure with hypoxia Tachycardia Type 2 diabetes mellitus with diabetic polyneuropathy Surgical History Surgical History History of back surgery Lumbar fusion History of cataract surgery Family History Family History Sibling Patient's sister is in good health Patient's brother is in good health Father Heart disease Acute myocardial infarction Mother Acute myocardial infarction Social History Social History Social History: He lives in [place] with his of 60 years. 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 He quit smoking over 50 years ago. He only had a 15 pack per year smoking history. He denies any alcohol or illicit substance use. Code status: Full code Smoking packs per day: 1 Smoking cigarettes per day: 20.0 Years smoked: 15 Smoking pack-years: 15.00 Smoking status: Former smoker Tobacco type: cigarettes Second hand tobacco smoke exposure: No Smoking end date:
[2022-03-11 12:00] VITALS: PULSE 88
[2022-03-11 12:22] LABS: Glucose Point of Care 162 mg/dl (65-105)
--- NOTE | 2022-03-11 13:16 | PM.DS ---
DS: Admitting Diagnosis Discharge Date 03/11/2022 Admitting Diagnosis Dizziness DS: Discharge Diagnosis Discharge Diagnosis (1) Vertigo: Code(s): R42 - Dizziness and giddiness Status: Acute Assessment and Plan: Patient with chronic dizziness since having COVID 19 in 2020 worsened dizziness than normal. Head CT on admission showed 11 mm hyperdense mass (see below). Head/neck CTA showed no aneurysm or significant arterial stenosis with 32% stenosis of the proximal right internal carotid artery and 14% stenosis of the proximal left internal carotid artery. He was evaluated by Neurosurgery and Neurology during admission. Differentials include BPPV, labyrinthitis, vestibular neuritis, many years. 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 He was able to ambulate independently and felt that his symptoms had returned back to baseline. Meclizine as needed for dizziness. He was referred to ENT for further evaluation as well as vestibular PT. fall precautions discussed. (2) Cerebral cavernoma: Code(s): Q28.3 - Other malformations of cerebral vessels Status: Acute Assessment and Plan: Head CT on presentation showed 11 mm hyperdense mass and right occipital lobe. 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 Patient was evaluated by Neurosurgery and Neurology. This was felt to be an incidental finding and not the cause of his dizziness. No urgent neurosurgical intervention required. He will follow-up with Dr. Sosa, neurosurgery, as an outpatient. (3) Essential hypertension: Code(s): I10 - Essential (primary) hypertension Status: Acute Assessment and Plan: Blood pressures elevated on presentation but did improve and stable at time of discharge. Continue home diltiazem, furosemide, spironolactone (4) Atrial fibrillation: Code(s): I48.91 - Unspecified atrial fibrillation Status: Acute Assessment and Plan: EKG on presentation showed patient to be in AFib. Rate remained controlled. Continue diltiazem and Eliquis for stroke prophylaxis. (5) Chronic kidney disease, stage 3: Code(s): N18.30 - Chronic kidney disease, stage 3 unspecified Status: Acute Assessment and Plan: Renal function remained consistent with baseline 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: Code(s): E11.22 - Type 2 diabetes mellitus with diabetic chronic kidney disease; N18.3 - Chronic kidney disease, stage 3 (moderate) Status: Acute Assessment and Plan: A1c is 7.6. Blood sugars were well controlled during admission. Continue home metformin DS: Summary Hospital Course Hospital Course: Date of admission: 03/10/2022 Date of discharge: 03/11/2022 Christian Villa is an 81-year-old male with a history of BPH, CKD, COPD, hypertension, hyperlipidemia, atrial fibrillation, type 2 diabetes mellitus, COVID-19 with subsequent ongoing dizziness who presented to the emergency department on 03/10/2022 with complaints of dizziness that was more severe than his baseline ongoing for about 2 hours. On presentation, his vital signs were stable, CBC and BMP unremarkable, head CT showed 11 mm hyperdense mass and CTA showed no significant stenosis. He was admitted to the hospitalist service for further evaluation and management and was seen in consultation by Neurosurgery and Neurology. Please see above for further details. Patient's dizziness improved back to his baseline. Brain mass was felt to be consistent with cavernoma and he will follow-up with neuro surgery. He was referred to ENT and vestibular rehab for dizziness. Patient was ambulating independently and felt comfortable with return home. Discussed with the patient worrisome signs and symptoms for which to return and educated regarding fall precautions. He was discharged in hemodynamically stable condit
[2022-03-11] MEDS: MECLIZINE HCL 25 MG TABLET PO (13:48)
[2022-03-11 14:00] VITALS: BP 122/73; PULSE 83; RESP 17; TEMP 36.6; O2SAT 98
--- NOTE | 2022-03-11 14:15 | PC.NURSE ---
On 03/11/22, the student, [Kathryn Briscoe], provided care and completed [facility] documentation on this patient. I have reviewed the student's documentation and agree with the findings.
[2022-03-11 16:00] VITALS: PULSE 76
== END 2022-03-11 17:04 | disposition home or self-care (01) ==
LOC: ANHED 14:12 → ANH2MED 19:30
PROVIDERS: Emergency Medicine; Nurse Practitioner; Admitting Provider Internal Medicine; Emergency Provider Emergency Medicine; PCP Internal Medicine; Visit Provider Physician Assistant
DX: R42 Dizziness and giddiness (principal); Q28.3 Other malformations of cerebral vessels; I12.9 Hypertensive chronic kidney disease with stage 1 through stage 4 chronic kidney disease, or unspecified chronic kidney disease; E11.22 Type 2 diabetes mellitus with diabetic chronic kidney disease; N18.30 Chronic kidney disease, stage 3 unspecified; I48.91 Unspecified atrial fibrillation; N40.0 Benign prostatic hyperplasia without lower urinary tract symptoms; J44.9 Chronic obstructive pulmonary disease, unspecified; I65.23 Occlusion and stenosis of bilateral carotid arteries; E78.2 Mixed hyperlipidemia; G47.33 Obstructive sleep apnea (adult) (pediatric); E11.40 Type 2 diabetes mellitus with diabetic neuropathy, unspecified; Z20.822 Contact with and (suspected) exposure to COVID-19; R94.31 Abnormal electrocardiogram [ECG] [EKG]; Z86.16 Personal history of COVID-19; Z87.891 Personal history of nicotine dependence; Z79.51 Long term (current) use of inhaled steroids; Z79.01 Long term (current) use of anticoagulants; Z79.899 Other long term (current) drug therapy; Z82.49 Family history of ischemic heart disease and other diseases of the circulatory system
CPT/HCPCS: 36415; 70450; 70496; 70498; 70553; 80053; 82948; 83036; 83605; 83735; 84443; 85025; 85610; 85730; 87502; 93005; 99285; A9270; A9577; G0378; Q9967; U0003; U0005

== ENCOUNTER 2022-05-25 11:00 | Outpatient (RCR) | payer OTHER, SELFPAY ==
--- NOTE | 2022-04-20 11:32 | PTOPEVAL1 ---
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 He reports issues with dizziness and weakness since having COVID May 2020, but in February, dizziness was so bad, he went to hospital. He is not working at this time, due to dizziness. Dizziness Handicap Index score is 52/100. His history includes neck pain, back pain, B hearing aides, afib, diabetes. With the evaluation, his symptoms increase with cervical extension, rolling in bed, head motions; [place] to the L was positive/ BPPV. Eply maneuver performed to L with decrease symptoms with each rep. Education provided. He has decreased balance and loss of balance with standing eyes closed for 3 seconds and standing trunk rotation R and L. Skilled PT services are indicated for vestibular therapy, to clear BPPV and increase standing and dynamic balance and further assessment as indicated of his vestibular system. Plan of Care Interventions Neuro Re-education,Patient/Caregiver Education, Therapeutic Activities,Therapeutic Exercise PT Services Indicated Yes Treatment Frequency and 0-2x/wk for 5 weeks, depending upon the severity Duration of his symptoms These treatments will address the objective and functional deficits as defined above. The patient will be advanced safely and appropriately in order for the patient to progress towards his/her prior level of function. Additional exercises will be introduced and as well
--- NOTE | 2022-05-25 10:56 | PTOPDC ---
Assessment and note entered by Judith Mccallum, PT Evaluation Information Assessment Status Discharge Diagnosis dizziness, vestibular therapy Onset Mar 10 2022 Subjective Information Christian reports: no longer have any dizziness, have not had for the past 2 weeks; feel weak and having some problems with COPD; is back to doing everything- driving his car OK; has not returned to work yet, has to get a release to go back-- feels like he could do his work without any problems; Reported Pain Level Pain Score Self Report Additional Pain Score Comments no pain with sitting, resting; do have back and knee pain Assessment PT Clinical Summary Christian has received 5 PT sessions, for the diagnosis of dizziness/vestibular therapy. He was able to perform without any vestibular issues or dizziness reported: standing and look up to ceiling and down to floor 3x; reach to floor 1x; close eyes x 10 sec- hold balance, slight wobble; trunk rotation R/L x 3 reps; He does report being unsteady and weak, due to long COVID and respiratory issues with COPD; He has good safety awareness and takes rest breaks PRN with his mobility and activity. The PT goals were achieved. Discharge PT treatment. Plan of Care PT Services Indicated No
== END 2022-05-25 14:04 | disposition home or self-care (01) ==
LOC: ANHPT 11:00
PROVIDERS: PCP Internal Medicine; Visit Provider Physician Assistant
DX: R42 Dizziness and giddiness (principal)
CPT/HCPCS: 97110; 97112; 97162; 97530

== ENCOUNTER 2022-06-16 08:36 | Emergency (ER) | payer OTHER, SELFPAY ==
--- NOTE | ~2022-06-16 | XR_ITS ---
EXAMINATION: XR chest 2V DATE: 06/16/2022 11:38 INDICATION: Productive cough TECHNIQUE: frontal and lateral views of the chest were obtained. COMPARISON: Chest radiograph dated 08/04/2020 FINDINGS: Mild opacities in the bilateral lower lung zones. Suggestion of some bronchiectatic changes at the po sterior lower lung zone on the lateral projection, unclear whether left sided, right-sided or both. N o pleural effusion or pneumothorax. The cardiomediastinal silhouette is normal. Mild S-shaped thoraci c scoliosis with moderate spondylosis. IMPRESSION: 1. Mild opacities at the bilateral lower lung zones with suggestion of posterior bronchiectatic [place] es. Differential includes pneumonia, atelectasis/scarring or mild pulmonary edema Reviewed, dictated and finalized at location A. NICAL AID IMPRESSION: 1. Mild opacities at the bilateral lower lung zones with suggestion of posterio r bronchiectatic changes. Differential includes pneumonia, atelectasis/scarring or mild pulmonary edema
--- NOTE | 2022-06-16 08:48 | ED.URI ---
HPI - URI/Sore Throat General Chief Complaint: Upper Respiratory Infection Stated Complaint: Chest Pain Time Seen by Provider: 06/16/22 08:48 Source: patient Mode of arrival: ambulatory Limitations: no limitations History of Present Illness HPI Narrative: 81-year-old male With history of COPD, asthma presents with complaint of cough for approximately 1 week. reports last couple days he has felt short of breath with exertion, fatigue. Afebrile. Taking Mucinex DM which is helping him sleep. Reports coughing more with activities and at night. Patient ambulatory with steady gait. No respiratory distress noted. All systems reviewed and negative except as noted above. Related Data Home Medications Medication Instructions Recorded Confirmed magnesium 1 tablet PO DIRECTED 12/10/21 03/10/22 multivit with minerals-iron 18 1 tablet PO DAILY 12/10/21 03/10/22 mg-folic ac 400 mcg-vit K 25 mcg tablet (Adults Multivitamin) omega-3 fatty acids 1,000 mg PO DAILY 12/10/21 03/10/22 vitamin B complex (B 1 tablet PO DAILY 12/10/21 03/10/22 Complex-Vitamin B12 tablet) diltiazem HCl 180 mg 180 mg PO DAILY 03/10/22 03/10/22 capsule,extended release 24 hr Allergies Allergy/AdvReac Type Severity Reaction Status Date / Time No Known Allergies Allergy Verified 03/15/22 10:11 Review of Systems Review of Systems: CONSTITUTIONAL: Denies fever, chills, or sweats. reports fatigue. EYES: Denies visual changes, redness, or discharge. ENT: Denies rhinorrhea, congestion, sore throat, or otalgia. CARDIOVASCULAR: Denies chest pain, palpitations, or edema. RESPIRATORY: Reports cough and dyspnea with exertion. GASTROINTESTINAL: Denies abdominal pain, nausea, vomiting, or diarrhea. GENITOURINARY: Denies dysuria or hematuria. SKIN: Denies rash or itching. MUSCULOSKELETAL: Denies back pain, joint pain, or myalgia. NEUROLOGIC: Denies headache, numbness, or weakness. PSYCHIATRIC: Denies anxiety or depression. All other systems reviewed are negative, except as documented in HPI. [facility] Past Medical History Medical History BPH (benign prostatic hyperplasia) Chronic kidney disease, stage 3 Chronic obstructive pulmonary disease, unspecified COVID-19 Encounter for general health examination Essential hypertension Hyperlipidemia Irregular heart rhythm Long COVID Mixed hyperlipidemia ANEUDY (obstructive sleep apnea) Not on CPAP ANEUDY (obstructive sleep apnea) Pneumonia due to COVID-19 virus Respiratory failure with hypoxia Tachycardia Type 2 diabetes mellitus with diabetic polyneuropathy Surgical History Surgical History History of back surgery Lumbar fusion History of cataract surgery Family History Family History Sibling Patient's sister is in good health Patient's brother is in good health Father Heart disease Acute myocardial infarction Mother Acute myocardial infarction Social History Social History (Updated 03/15/22 @ 10:19 by Maritza Swanson [facility]) Social History: He lives in [place] with his of 60 years. 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 He quit smoking over 50 years ago. He only had a 15 pack per year smoking history. He denies any alcohol or illicit substance use. Code status: Full code Smoking packs per day: 1 Smoking cigarettes per day: 20.0 Years smoked: 15 Smoking pack-years: 15.00 Smoking status: Former smoker Tobacco type: cigarettes Second hand tobacco smoke exposure: No Smoking end date: 05/16/1950 Alcohol intake: never Substance use: never Substance use type: does not use Lack of Transportation: No Lack of Food: Never True Current Housing: I Have Housing Concerned About Future Housing: No Difficulty
[2022-06-16 08:49] VITALS: BP 138/77; PULSE 102; RESP 16; TEMP 36.8; O2SAT 96
== END 2022-06-16 09:49 | disposition home or self-care (01) ==
PROVIDERS: Emergency Provider Nurse Practitioner Family; PCP Internal Medicine
DX: J18.9 Pneumonia, unspecified organism (principal); J44.1 Chronic obstructive pulmonary disease with (acute) exacerbation; N40.0 Benign prostatic hyperplasia without lower urinary tract symptoms; I12.9 Hypertensive chronic kidney disease with stage 1 through stage 4 chronic kidney disease, or unspecified chronic kidney disease; E11.22 Type 2 diabetes mellitus with diabetic chronic kidney disease; N18.30 Chronic kidney disease, stage 3 unspecified; E78.2 Mixed hyperlipidemia; E11.42 Type 2 diabetes mellitus with diabetic polyneuropathy; Z86.16 Personal history of COVID-19; Z87.891 Personal history of nicotine dependence
CPT/HCPCS: 71046; 99213; G0463

== ENCOUNTER 2022-06-17 10:37 | Outpatient (CLI) | payer OTHER, SELFPAY ==
--- NOTE | ~2022-06-17 | MR_ITS ---
MRI of the brain Clinical History: Right occipital lobe mass Technique: Axial and sagittal T1-weighted images were acquired. These were followed by axial T2-weigh purvi, diffusion weighted, gradient, and FLAIR images. Following intravenous administration of 20 cc Mu ltiHance gadolinium, T1-weighted fat-sat imaging was performed in the axial, coronal, and sagittal pl anes. COMPARISON: 03/11/2022 Findings: No acute infarct seen. Stable 9 mm lesion in the right occipital lobe with peripheral T2 hy pointensity, subtle peripheral T1 hyperintensity, and prominent blooming artifact on gradient images, most consistent with cavernoma. Moderate background chronic white matter changes throughout the dipti ventricular white matter otherwise are similar to prior exam. Ventricles and subarachnoid spaces are unremarkable. Orbits are unremarkable. 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 Major intracranial flow voids appear intact. Paranasal sinuses and mastoid air cells are clear. Sagittal midline structures are intact. No abnormal postcontrast enhancement identified. IMPRESSION: Stable 9 mm cavernoma in the right occipital lobe. Stable moderate chronic microvascular ischemic changes. Reviewed, dictated and finalized at [facility]. TEGY ANALYST
== END 2022-06-17 10:38 | disposition home or self-care (01) ==
PROVIDERS: PCP Internal Medicine; Visit Provider Neurological Surgery
DX: Q28.3 Other malformations of cerebral vessels (principal); G93.89 Other specified disorders of brain; R93.0 Abnormal findings on diagnostic imaging of skull and head, not elsewhere classified
CPT/HCPCS: 70553; A9577

== ENCOUNTER 2022-07-14 09:28 | Emergency (ER) | payer OTHER, SELFPAY ==
--- NOTE | ~2022-07-14 | XR_ITS ---
Left elbow Technique: AP, oblique, and lateral views were obtained. Clinical History: Pain Findings: No acute fracture or dislocation is seen. Osseous alignment is anatomic. Joint spaces are p reserved. There is no displacement of the fat pads, and soft tissues are unremarkable. Impression: Unremarkable radiographs. Reviewed, dictated and finalized at location . ET PREPARATION OPERATOR Impression: Unremarkable radiographs.
--- NOTE | ~2022-07-14 | CT_ITS ---
CT head without contrast Indication: Status post fall COMPARISON: 03/10/2022 Technique: Serial scans were obtained through the brain without the administration of contrast. Dose reduction technique was used on this scan by utilizing automated exposure control and iterative recon struction technique. The dose-length product (DLP) was 605.33 mGy-cm. Findings: There is no evidence of acute intracranial abnormality. Stable focal hyperdensity in the ri ght occipital lobe, possibly cavernoma. The ventricles and subarachnoid spaces are dilated, consisten t with minimal atrophy. Low attenuation regions are seen within the periventricular white matter [place] aterally, likely representing changes from chronic microvascular ischemic disease. There is no eviden ce of edema, mass effect or midline shift. The visualized paranasal sinuses and mastoid air cells a re clear. Impression: No acute intracranial abnormality. Stable focal hyperdensity in the right occipital lobe, most likely cavernoma given stability over thi s time interval. Atrophy and chronic white matter changes, as above. Reviewed, dictated and finalized at location M. FOUNDER AND CEO Impression: No acute intracranial abnormality. Stable focal hyperdensity in the right occipital lobe, most likely cavernoma gi carlos stability over this time interval. Atrophy and chronic white matter changes, as above.
--- NOTE | ~2022-07-14 | XR_ITS ---
Left Knee Technique: AP, lateral, and sunrise views were obtained. Clinical History: Pain Findings: No fracture or dislocation is seen. Osseous alignment is anatomic. Joint spaces are preserv ed without degenerative or erosive change. Mild soft tissue swelling noted at the infrapatellar regio n. No joint effusion is seen. Impression: No fracture or dislocation. Mild soft tissue swelling at the infrapatellar region. Reviewed, dictated and finalized at location M. OND MILL OPERATOR Impression: No fracture or dislocation. Mild soft tissue swelling at the infrapatellar region.
[2022-07-14 10:09] VITALS: BP 154/93; PULSE 87; RESP 18; TEMP 36.3; O2SAT 99
--- NOTE | 2022-07-14 13:41 | ED.FALL ---
HPI - Fall General Chief Complaint: Fall Stated Complaint: FELL ON SIDEWALK Time Seen by Provider: 07/14/22 11:48 Source: patient Mode of arrival: ambulatory Limitations: no limitations History of Present Illness HPI Narrative: 82-year-old male with history of A-fib currently on anticoagulation presents today status post fall. Patient says he [place] post office [place] and fell off of the curb landing onto his left side. Currently with minimal pain to the left knee, minimal pain left elbow, and patient is unsure if he hit his head. Patient is alert and oriented x3. Small amount of swelling to the left knee with an abrasion noted. Patient with full range of motion. Tenderness to the lateral aspect of the knee. Patient also with small abrasion noted to the left elbow. No swelling noted but tenderness upon palpation. Full range of motion noted pain with extension only. Head appears atraumatic. Cranial nerves intact. Gait steady. Related Data Home Medications Medication Instructions Recorded Confirmed magnesium 1 tablet PO DIRECTED 12/10/21 07/09/22 multivit with minerals-iron 18 1 tablet PO DAILY 12/10/21 07/09/22 mg-folic ac 400 mcg-vit K 25 mcg tablet (Adults Multivitamin) omega-3 fatty acids 1,000 mg PO DAILY 12/10/21 07/09/22 vitamin B complex (B 1 tablet PO DAILY 12/10/21 07/09/22 Complex-Vitamin B12 tablet) diltiazem HCl 180 mg 180 mg PO DAILY 03/10/22 07/09/22 capsule,extended release 24 hr Allergies Allergy/AdvReac Type Severity Reaction Status Date / Time No Known Allergies Allergy Verified 07/09/22 08:50 Review of Systems Review of Systems: CONSTITUTIONAL: Denies fever, chills, or sweats. EYES: Denies visual changes, redness, or discharge. ENT: Denies rhinorrhea, congestion, sore throat, or otalgia. CARDIOVASCULAR: Denies chest pain, palpitations, or edema. RESPIRATORY: Denies cough or dyspnea. GASTROINTESTINAL: Denies abdominal pain, nausea, vomiting, or diarrhea. GENITOURINARY: Denies dysuria or hematuria. SKIN: Denies rash or itching. MUSCULOSKELETAL: Left knee and left elbow pain. Status post fall. Denies back pain or myalgia. NEUROLOGIC: Denies headache, numbness, dizziness, or weakness. PSYCHIATRIC: Denies anxiety or depression. COUNTS INCLUDE 234 BEDS AT THE [facility] Past Medical History Medical History Atrial fibrillation BPH (benign prostatic hyperplasia) Chronic kidney disease, stage 3 Chronic obstructive pulmonary disease, unspecified COVID-19 Encounter for general health examination Essential hypertension Hyperlipidemia Irregular heart rhythm Long COVID Mixed hyperlipidemia ANEUDY (obstructive sleep apnea) Not on CPAP ANEUDY (obstructive sleep apnea) Pneumonia due to COVID-19 virus Respiratory failure with hypoxia Tachycardia Type 2 diabetes mellitus with diabetic polyneuropathy Surgical History Surgical History History of back surgery Lumbar fusion History of cataract surgery Family History Family History Sibling Patient's sister is in good health Patient's brother is in good health Father Heart disease Acute myocardial infarction Mother Acute myocardial infarction Social History Social History Social History: He lives in [place] with his of 60 years. 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 He quit smoking over 50 years ago. He only had a 15 pack per year smoking history. He denies any alcohol or illicit substance use. Code status: Full code Smoking packs per day: 1 Smoking cigarettes per day: 20.0 Years smoked: 15 Smoking pack-years: 15.00 Smoking status: Former smoker Tobacco type: cigarettes Second hand tobacco smoke exposure: No Smoking end
== END 2022-07-14 14:27 | disposition home or self-care (01) ==
PROVIDERS: Emergency Provider Nurse Practitioner Family; PCP Internal Medicine
DX: M25.562 Pain in left knee (principal); M25.522 Pain in left elbow; W10.1XXA Fall (on)(from) sidewalk curb, initial encounter; I48.91 Unspecified atrial fibrillation; I12.9 Hypertensive chronic kidney disease with stage 1 through stage 4 chronic kidney disease, or unspecified chronic kidney disease; N18.30 Chronic kidney disease, stage 3 unspecified; N40.0 Benign prostatic hyperplasia without lower urinary tract symptoms; J44.9 Chronic obstructive pulmonary disease, unspecified; E78.2 Mixed hyperlipidemia; G47.33 Obstructive sleep apnea (adult) (pediatric); E11.22 Type 2 diabetes mellitus with diabetic chronic kidney disease; E11.42 Type 2 diabetes mellitus with diabetic polyneuropathy; Z98.1 Arthrodesis status; Z87.891 Personal history of nicotine dependence; Z79.51 Long term (current) use of inhaled steroids; Z79.84 Long term (current) use of oral hypoglycemic drugs
CPT/HCPCS: 70450; 73080; 73562; 99284

== ENCOUNTER 2022-11-18 07:39 | Outpatient (RCR) | payer OTHER, SELFPAY ==
--- NOTE | 2022-11-18 09:03 | PTOPEVAL1 ---
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; have been here in the past for dizziness, with BPPV, cleared; symptoms now: if stand up too fast, look up, move head fast or bend forward- get dizzy and have to sit down or stay still- clears about 30 seconds; with walking have loss of balance towards any direction; decreased activity level at home due to back pain and cannot stand very long; assist with home tasks; he sleeps in recliner, cannot go upstairs to the bedroom; ----- HISTORY: low back pain, neck pain, weakness of legs, long COVID, A fib, diabetes, HTN; multiple meds; have hearing aide L ear--not using today, have decreased hearing, cannot recall when tested; wear glasses PRN, last eye exam 2 yr ago; Reported Pain Level Pain Score Self Report Additional Pain Score Comments pain range in back of 0-11/10-- at rest no pain, when walking, more pain, legs go weak and cannot walk; going to pain management in December; also neck pain Assessment PT Clinical Summary Christian has the diagnosis of dizziness. See above subjective section. With the evaluation, he was positive for BPPV of R anterior-posterior canals. Performed clearing of the canal. EDUCATION: issued handouts and discussed with pt: general vestibular info, BPPV, causes of dizziness; post Eply maneuver precautions; Carmelo Wang--self clearing of BPPV; reinforced leg exercises, safety with sit/stand and mobility, walking as tolerated for strengthening; pt voiced understanding; also recommended to pt getting an eye exam and hearing exam; Christian reports he did not want to have to come back if he does
--- NOTE | 2022-11-18 09:04 | OPREHPOC ---
Outpatient Therapy Plan of Care This is a Multidisciplinary Plan of Care that may contain components documented by all disciplines (PT, OT, and ST.) PT Problem 1 PT Problem #1 Knowledge Deficit PT Goal 1 Goal 1* indep with home exercise program PT Problem 2 PT Problem #2 Impaired Functional Mobil PT Goal 1 Goal pt perform without any vestibular symptoms: 1* supine/sit transfer 2* sit/stand transfer 3* standing and reach to floor 4* standing 360' turn 1x to R and L 5* further testing of his vestibular system and dynamic balance as indicated
--- NOTE | 2023-01-03 09:36 | PTOPDC ---
Assessment and note entered by Judith Mccallum, PT Evaluation Information Assessment PT Clinical Summary DISCHARGE PT services Christian received the PT evaluation on 11-18-22 for the diagnosis of dizziness. Maneuver was performed to clear BPPV and education provided. He did not return for any further treatment. Discharge PT services. Plan of Care PT Services Indicated No
== END 2023-01-03 10:46 | disposition home or self-care (01) ==
LOC: ANHPT 07:39
PROVIDERS: PCP Family Medicine; Visit Provider Family Medicine
DX: H81.11 Benign paroxysmal vertigo, right ear (principal)
CPT/HCPCS: 95992; 97162

== ENCOUNTER 2022-11-19 03:24 | Day surgery (SDC) | payer OTHER, SELFPAY ==
[2022-11-10 12:12] VITALS: BMI 34.4
--- NOTE | 2022-11-19 11:25 | PM.HPGS ---
History of Present Illness History of Present Illness Consent: Risks, benefits, and alternatives have been discussed and questions answered. Patient agrees to proceed with procedure. Chief complaint: neoplasm screening Narrative: Christian Villa is a 82 year old male Presents for screening colonoscopy. Referred by Dr. Covington. Patient reports his weight appetite and bowel movements are normal. He denies abdominal pain. He has had no bleeding. No family history of colon or rectal disease. Patient did have a colonoscopy in 2019 that revealed only diverticulosis and internal hemorrhoids. Review of Systems Review of Systems: Review of systems noncontributory. [facility] Past Medical History Medical History (Updated 11/19/22 @ 11:26 by David Salazar MD) Atrial fibrillation BPH (benign prostatic hyperplasia) Chronic kidney disease, stage 3 Chronic obstructive pulmonary disease, unspecified COVID-19 Encounter for general health examination Essential hypertension Hyperlipidemia Irregular heart rhythm Long COVID Mixed hyperlipidemia ANEUDY (obstructive sleep apnea) Not on CPAP ANEUDY (obstructive sleep apnea) Pneumonia due to COVID-19 virus Respiratory failure with hypoxia Tachycardia Type 2 diabetes mellitus with diabetic polyneuropathy Surgical History Surgical History History of back surgery Lumbar fusion History of cataract surgery Family History Family History Sibling Patient's sister is in good health Patient's brother is in good health Father Heart disease Acute myocardial infarction Mother Acute myocardial infarction Social History Social History (Updated 11/02/22 @ 08:21 by Maritza Swansno [facility]) Social History: He lives in [place] with his of 60 years. 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 He quit smoking over 50 years ago. He only had a 15 pack per year smoking history. He denies any alcohol or illicit substance use. Code status: Full code Smoking packs per day: 1 Smoking cigarettes per day: 20.0 Years smoked: 15 Smoking pack-years: 15.00 Smoking status: Former smoker Tobacco type: cigarettes Second hand tobacco smoke exposure: No Smoking end date: 05/16/1950 Alcohol intake: never Substance use: never Substance use type: does not use Lack of Transportation: No Lack of Food: Never True Current Housing: I Have Housing Concerned About Future Housing: No Difficulty Paying Gas/Electric Bills: No Difficulty Paying for Meds: No Currently Unemployed: No Education: Don't Know Difficulty w/ Childcare or Family Care: No Living arrangements: with family Gender identity (if verbalized by the patient): Male Sexual Orientation (if Verbalized by the Patient): Straight or Heterosexual Spiritual care concerns: No Meds Home Medications and Allergies Home Medications Medication Instructions Recorded Confirmed Type albuterol sulfate 90 mcg/actuation 2 puff inhalation Q4H PRN 11/27/19 11/10/22 Rx aerosol inhaler (ProAir HFA) shortness of breath or wheezing #8.5 grams lancets (Lancets, Super Thin) #100 ea 01/30/20 07/09/22 Rx blood sugar diagnostic (Contour #100 ea 03/19/20 07/09/22 Rx Next Test Strips) magnesium 1 tablet PO DIRECTED 12/10/21 11/10/22 History multivit with minerals-iron 18 1 tablet PO DAILY 12/10/21 11/10/22 History mg-folic ac 400 mcg-vit K 25 mcg tablet (Adults Multivitamin) omega-3 fatty acids 1,000 mg PO DAILY 12/10/21 11/10/22 History vitamin B complex (B 1 tablet PO DAILY 12/10/21 11/10/22 History Complex-Vitamin B12 tablet) metformin 1,000 mg tablet 1,000 mg PO BID #180 tabs 06/25/22 11/10/22 Rx apixaban 5 mg tablet (Eliquis) 5 mg PO BID #180 tabs 07/09/22 11/19/22 Rx diltiazem HCl 180 mg See Rx Instruct
[2022-11-19] MEDS: LACTATED RINGERS 1,000 ML 150 ML IV CONT (11:36)
[2022-11-19 11:39] LABS: Glucose Point of Care 121 mg/dl (65-105)
--- NOTE | 2022-11-19 12:17 | WPDANESEPPF ---
Anes - Initial Pre Proc Eval Procedure: Operation Date: 11/19/22 12:30 Proposed Procedures p Screening Colonoscopy - David Salazar MD Date/Time: 11/19/22 12:17 Surgeon: David Salazar MD Pre Op Diagnosis: neoplasm screening Patient Data Age: 82 Gender: M Height: 1.75 m Weight: 105.1 kg Allergies Allergy/AdvReac Type Severity Reaction Status Date / Time No Known Allergies Allergy Verified 11/10/22 12:10 Home Medications Medication Instructions Recorded Confirmed Type albuterol sulfate 90 mcg/actuation 2 puff inhalation Q4H PRN 11/27/19 11/10/22 Rx aerosol inhaler (ProAir HFA) shortness of breath or wheezing #8.5 grams lancets (Lancets, Super Thin) #100 ea 01/30/20 07/09/22 Rx blood sugar diagnostic (Contour #100 ea 03/19/20 07/09/22 Rx Next Test Strips) magnesium 1 tablet PO DIRECTED 12/10/21 11/10/22 History multivit with minerals-iron 18 1 tablet PO DAILY 12/10/21 11/10/22 History mg-folic ac 400 mcg-vit K 25 mcg tablet (Adults Multivitamin) omega-3 fatty acids 1,000 mg PO DAILY 12/10/21 11/10/22 History vitamin B complex (B 1 tablet PO DAILY 12/10/21 11/10/22 History Complex-Vitamin B12 tablet) metformin 1,000 mg tablet 1,000 mg PO BID #180 tabs 06/25/22 11/10/22 Rx apixaban 5 mg tablet (Eliquis) 5 mg PO BID #180 tabs 07/09/22 11/19/22 Rx diltiazem HCl 180 mg See Rx Instructions .Route 08/02/22 11/10/22 Rx capsule,extended release 24 hr .COMPLEX #90 caps spironolactone 25 mg tablet 12.5 mg PO DAILY #45 tabs 08/02/22 11/10/22 Rx finasteride 5 mg tablet 5 mg PO DAILY #90 tabs 08/03/22 11/10/22 Rx fluticasone 250 mcg-salmeterol 50 See Rx Instructions .Route 08/03/22 11/10/22 Rx mcg/dose blistr powdr for .COMPLEX #180 ea inhalation (Wixela Inhub) furosemide 40 mg tablet 40 mg PO BID #180 tabs 08/03/22 11/10/22 Rx pravastatin 40 mg tablet 40 mg PO DAILY #90 tabs 08/03/22 11/10/22 Rx tamsulosin 0.4 mg capsule 0.8 mg PO DAILY #180 caps 11/02/22 11/10/22 Rx glipizide 2.5 mg tablet, extended 2.5 mg PO DAILY #90 tabs 11/09/22 11/10/22 Rx release 24 hr Laboratory Tests 11/19/22 11:29 POC Capillary Glucose 121 H mg/dl (65-105) Patient hx anesthesia problems: none Family hx anesthesia problems: none Results Review: All pre-operative results and documents have been reviewed as part of the pre-operative evaluation. [facility] Past Medical History Medical History (Updated 11/19/22 @ 11:26 by David Salazar MD) Atrial fibrillation BPH (benign prostatic hyperplasia) Chronic kidney disease, stage 3 Chronic obstructive pulmonary disease, unspecified COVID-19 Encounter for general health examination Essential hypertension Hyperlipidemia Irregular heart rhythm Long COVID Mixed hyperlipidemia ANEUDY (obstructive sleep apnea) Not on CPAP ANEUDY (obstructive sleep apnea) Pneumonia due to COVID-19 virus Respiratory failure with hypoxia Tachycardia Type 2 diabetes mellitus with diabetic polyneuropathy Surgical History Surgical History History of back surgery Lumbar fusion History of cataract surgery Family History Family History Sibling Patient's sister is in good health Patient's brother is in good health Father Heart disease Acute myocardial infarction Mother Acute myocardial infarction Social History Social History (Updated 11/02/22 @ 08:21 by Maritza Swanson [facility]) Social History: He lives in [place] with his of 60 years. 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 He quit smoking over 50 years ago. He only had a 15 pack per year smoking history. He denies any alcohol or illicit substance use. Code status: Full code Smoking packs per day: 1 Smoking cigarettes per day: 20.0 Years smoked: 15 Smoking pack-years: 15.00 Smoking status:
[2022-11-19 13:00] VITALS: BP 90/53; PULSE 74; RESP 24; O2SAT 98
[2022-11-19 13:10] VITALS: BP 103/58; PULSE 73; RESP 21; O2SAT 98
[2022-11-19 13:20] VITALS: BP 129/76; PULSE 78; RESP 16; O2SAT 98
== END 2022-11-19 13:40 | disposition home or self-care (01) ==
PROVIDERS: PCP Family Medicine; Visit Provider Internal Medicine Gastroenterology
PROC: 0DJD8ZZ Inspection of Lower Intestinal Tract, Via Natural or Artificial Opening Endoscopic (ICD-10-PCS; CPT 45378; principal; 2022-11-19 12:30)
DX: Z12.11 Encounter for screening for malignant neoplasm of colon (principal); K64.8 Other hemorrhoids; K57.30 Diverticulosis of large intestine without perforation or abscess without bleeding; I12.9 Hypertensive chronic kidney disease with stage 1 through stage 4 chronic kidney disease, or unspecified chronic kidney disease; E11.22 Type 2 diabetes mellitus with diabetic chronic kidney disease; N18.30 Chronic kidney disease, stage 3 unspecified; I48.91 Unspecified atrial fibrillation; J44.9 Chronic obstructive pulmonary disease, unspecified; E78.2 Mixed hyperlipidemia; G47.33 Obstructive sleep apnea (adult) (pediatric); E11.42 Type 2 diabetes mellitus with diabetic polyneuropathy; N40.0 Benign prostatic hyperplasia without lower urinary tract symptoms; Z98.1 Arthrodesis status; Z87.891 Personal history of nicotine dependence; Z79.51 Long term (current) use of inhaled steroids; Z79.84 Long term (current) use of oral hypoglycemic drugs; Z79.01 Long term (current) use of anticoagulants; E66.9 Obesity, unspecified; Z68.34 Body mass index [BMI] 34.0-34.9, adult
CPT/HCPCS: G0121; 82948; J2371; J2704; J7120

== ENCOUNTER 2022-12-04 10:33 | Outpatient (CLI) | payer OTHER, SELFPAY ==
--- NOTE | ~2022-12-04 | MR_ITS ---
EXAMINATION: MR lumbar spine wo con DATE: 12/04/2022 11:21 INDICATION: lumbosacral spondylosis/stenosis with INC . TECHNIQUE: Magnetic resonance imaging (MRI) of the lumbar spine was performed without intravenous con trast. Sequences included sagittal T2-weighted FSE, sagittal T2-weighted FS FSE, sagittal T1-weighted FSE, and axial T2-weighted FSE. COMPARISON: X-ray L-spine 07/27/2019 FINDINGS: The last fully formed and hydrated disc is designated L5-S1. Anterior L5-S1 fusion hardware and interbody device. Simple left renal cyst. T1 and T2 subendplate signal with mild surrounding ramirez ma at the superior endplate of L4. Conus terminates at T12-L1. Mild clumping of distal nerve roots. M ultilevel disc dehydration. Trace retrolistheses at L1-2 through L3-4. Minimal anterolisthesis at L4- 5. The following disc levels are specifically discussed: T11-T12: The disc does not extend beyond the endplate margin. There is no facet joint osteoarthritis. There is no neural foraminal stenosis. There is no central canal stenosis. T12-L1: Mild diffuse bulge. There is no facet joint osteoarthritis. There is no neural foraminal sten osis. There is no central canal stenosis. L1-L2: Moderate diffuse bulge. There is mild bilateral facet joint osteoarthritis. There is no neural foraminal stenosis. There is no central canal stenosis. L2-L3: Mild diffuse bulge. There is moderate bilateral facet joint osteoarthritis. There is mild righ t and mild left inferior neural foraminal stenosis. There is no central canal stenosis. L3-L4: Moderate diffuse bulge. There is moderate bilateral facet joint osteoarthritis. There is mild right and moderate left neural foraminal stenosis. There is no central canal stenosis. L4-L5: Moderate diffuse bulge. There is moderate bilateral facet joint osteoarthritis. There is mild bilateral neural foraminal stenosis. There is moderate central canal stenosis. L5-S1: The disc does not extend beyond the endplate margin. There is mild bilateral facet joint osteo arthritis. There is no neural foraminal stenosis. There is no central canal stenosis. IMPRESSION: Acute/subacute superior endplate fracture at L4, without significant height loss. Mild lumbar arachnoiditis. Multilevel trace listheses, mild and moderate degenerative disc disease, and moderate facet arthropat hy. Moderate central canal stenosis at L4-5. Reviewed, dictated and finalized at location K. IMPRESSION: Acute/subacute superior endplate fracture at L4, without significant height los s. Mild lumbar arachnoiditis. Multilevel trace listheses, mild and moderate degenerative disc disease, and mo derate facet arthropathy. Moderate central canal stenosis at L4-5.
== END 2022-12-04 10:34 | disposition home or self-care (01) ==
PROVIDERS: PCP Family Medicine; Visit Provider Anesthesiology Pain Medicine
DX: M48.07 Spinal stenosis, lumbosacral region (principal); M47.817 Spondylosis without myelopathy or radiculopathy, lumbosacral region; M96.1 Postlaminectomy syndrome, not elsewhere classified; M54.9 Dorsalgia, unspecified; M51.36 Other intervertebral disc degeneration, lumbar region
CPT/HCPCS: 72148

== ENCOUNTER 2022-12-09 08:34 | Emergency (ER) | payer OTHER, SELFPAY ==
--- NOTE | ~2022-12-09 | XR_ITS ---
AP and oblique views of the left ribs, and PA and lateral chest radiographs Clinical History: Pain Findings: Suspected nearly nondisplaced fractures of the left 10th and 11th ribs. Lungs are clear, wi thout focal consolidation or pleural effusion. Cardiomediastinal contour is within normal limits. Sof t tissues are unremarkable. Impression: Suspected nearly nondisplaced fractures of left 10th and 11th ribs. Correlate for point tenderness. Reviewed, dictated and finalized at location . Impression: Suspected nearly nondisplaced fractures of left 10th and 11th ribs. Correlate f or point tenderness.
--- NOTE | 2022-12-09 08:51 | ED.GENADULT ---
HPI - General Adult General Chief complaint: Fall Stated complaint: Left Side Pain Source: patient, family and RN notes reviewed History of Present Illness HPI narrative: 82 yo M presents to urgent care with at side. Pt states he was attempting to get out of his recliner on Tuesday when he fell and hit his left side on the recliner and then fell to the floor. Pt presents with pain, swelling, abrasion, and mild bruising to his left CVA/lower back. Pt also presents with skin tear and tenderness to left volar forearm. Patient reports pain in his left thoracic back with deep inhalation. Pt denies any head injury, LOC, chest pain, abdominal pain, vomiting, numbness, or tingling. Denies any neck pain. Patient has been taking Tylenol at home. Patient is on anticoagulants. Related Data Home Medications Medication Instructions Recorded Confirmed multivit with minerals-iron 18 1 tablet PO DAILY 12/10/21 12/09/22 mg-folic ac 400 mcg-vit K 25 mcg tablet (Adults Multivitamin) vitamin B complex (B 1 tablet PO DAILY 12/10/21 12/09/22 Complex-Vitamin B12 tablet) diltiazem HCl 180 mg 180 mg PO DAILY 12/09/22 12/09/22 capsule,extended release 24 hr fluticasone 250 mcg-salmeterol 50 1 inh inhalation BID 12/09/22 12/09/22 mcg/dose blistr powdr for inhalation (Wixela Inhub) Allergies Allergy/AdvReac Type Severity Reaction Status Date / Time Opioids - Morphine Analogues AdvReac Intermediate Nausea and Verified 12/09/22 08:52 Vomiting Review of Systems Review of Systems: Pertinent positives and pertinent negatives per HPI. [facility] Past Medical History Medical History (Updated 12/09/22 @ 10:21 by Heather Hollingsworth, DARSHAN) Atrial fibrillation BPH (benign prostatic hyperplasia) Chronic kidney disease, stage 3 Chronic obstructive pulmonary disease, unspecified COVID-19 Encounter for general health examination Essential hypertension Hyperlipidemia Irregular heart rhythm Long COVID Mixed hyperlipidemia ANEUDY (obstructive sleep apnea) Not on CPAP ANEUDY (obstructive sleep apnea) Pneumonia due to COVID-19 virus Respiratory failure with hypoxia Tachycardia Type 2 diabetes mellitus with diabetic polyneuropathy Surgical History Surgical History History of back surgery Lumbar fusion History of cataract surgery Family History Family History Sibling Patient's sister is in good health Patient's brother is in good health Father Heart disease Acute myocardial infarction Mother Acute myocardial infarction Social History Social History (Updated 11/02/22 @ 08:21 by Maritza Swanson [employer] [facility]) Social History: He lives in [place] with his of 60 years. 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 He quit smoking over 50 years ago. He only had a 15 pack per year smoking history. He denies any alcohol or illicit substance use. Code status: Full code Smoking packs per day: 1 Smoking cigarettes per day: 20.0 Years smoked: 15 Smoking pack-years: 15.00 Smoking status: Former smoker Tobacco type: cigarettes Second hand tobacco smoke exposure: No Smoking end date: 05/16/1950 Alcohol intake: never Substance use: never Substance use type: does not use Lack of Transportation: No Lack of Food: Never True Current Housing: I Have Housing Concerned About Future Housing: No Difficulty Paying Gas/Electric Bills: No Difficulty Paying for Meds: No Currently Unemployed: No Education: Don't Know Difficulty w/ Childcare or Family Care: No Living arrangements: with family Gender identity (if verbalized by the patient): Male Sexual Orientation (if Verbalized by the Patient): Straight or Heterosexual Spiritual care concerns: No Comments At the time of my signature, I review
[2022-12-09 08:55] VITALS: BP 154/90; PULSE 100; RESP 14; TEMP 36.2; O2SAT 97
--- NOTE | 2022-12-09 10:20 | PC.NURSE ---
NO URINE CULTURE ORDERED PER PROVIDER
== END 2022-12-09 10:25 | disposition home or self-care (01) ==
PROVIDERS: Emergency Provider Nurse Practitioner Family; PCP Family Medicine
DX: S51.812A Laceration without foreign body of left forearm, initial encounter (principal); S41.112A Laceration without foreign body of left upper arm, initial encounter; S22.42XA Multiple fractures of ribs, left side, initial encounter for closed fracture; S30.0XXA Contusion of lower back and pelvis, initial encounter; W19.XXXA Unspecified fall, initial encounter; Z87.891 Personal history of nicotine dependence; I48.91 Unspecified atrial fibrillation; I12.9 Hypertensive chronic kidney disease with stage 1 through stage 4 chronic kidney disease, or unspecified chronic kidney disease; E11.22 Type 2 diabetes mellitus with diabetic chronic kidney disease; N18.30 Chronic kidney disease, stage 3 unspecified; N40.0 Benign prostatic hyperplasia without lower urinary tract symptoms; J44.9 Chronic obstructive pulmonary disease, unspecified; E78.2 Mixed hyperlipidemia; E11.42 Type 2 diabetes mellitus with diabetic polyneuropathy; Z86.16 Personal history of COVID-19
CPT/HCPCS: 71046; 71100; 81003; 99213; A4565; G0463

== ENCOUNTER 2023-01-11 06:26 | Day surgery (SDC) | payer OTHER, SELFPAY ==
[2023-01-03 11:13] VITALS: BMI 32.3
--- NOTE | ~2023-01-11 | XR_ITS ---
EXAMINATION: XR fluoroscopy no charge DATE: 01/11/2023 7:46 CDT INDICATION: L4-5 INTERLAMINAR EPIDURAL STEROID INJECTION . TECHNIQUE: 2 fluoroscopic images of the lumbar spine were obtained during L4-5 interlaminar epidural steroid injection performed by the surgeon. I was not present in the operating room. Fluoroscopy expo sure time was 20.1 seconds. Air Kerma 15.55 mGy. COMPARISON: None FINDINGS: Partially visualized lumbar fusion hardware. Posterior needle directed towards the L4-5 disc space fo llowed by epidural contrast injection. IMPRESSION: Fluoroscopic documentation of L4-5 interlaminar epidural steroid injection. Please refer to the opera tive note for complete procedural details . Reviewed, dictated and finalized at location K. IMPRESSION: Fluoroscopic documentation of L4-5 interlaminar epidural steroid injection. Ple ase refer to the operative note for complete procedural details .
[2023-01-11 06:51] VITALS: BP 134/93; PULSE 93; RESP 16; TEMP 36.3; O2SAT 97
--- NOTE | 2023-01-11 07:24 | PM.HPGS ---
History of Present Illness History of Present Illness Consent: Risks, benefits, and alternatives have been discussed and questions answered. Patient agrees to proceed with procedure. 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 recent fall with rib fractures, healing well. [facility] Past Medical History Medical History Atrial fibrillation BPH (benign prostatic hyperplasia) Chronic kidney disease, stage 3 Chronic obstructive pulmonary disease, unspecified COVID-19 Encounter for general health examination Essential hypertension Hyperlipidemia Irregular heart rhythm Long COVID Mixed hyperlipidemia ANEUDY (obstructive sleep apnea) Not on CPAP ANEUDY (obstructive sleep apnea) Pneumonia due to COVID-19 virus Respiratory failure with hypoxia Tachycardia Type 2 diabetes mellitus with diabetic polyneuropathy Surgical History Surgical History History of back surgery Lumbar fusion History of cataract surgery Family History Family History Sibling Patient's sister is in good health Patient's brother is in good health Father Heart disease Acute myocardial infarction Mother Acute myocardial infarction Social History Social History Social History: He lives in [place] with his of 60 years. 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 He quit smoking over 50 years ago. He only had a 15 pack per year smoking history. He denies any alcohol or illicit substance use. Code status: Full code Smoking packs per day: 1 Smoking cigarettes per day: 20.0 Years smoked: 15 Smoking pack-years: 15.00 Smoking status: Never smoker Tobacco type: cigarettes Second hand tobacco smoke exposure: No Smoking end date: 05/16/1950 Alcohol intake: unknown Substance use: never Substance use type: does not use Lack of Transportation: No Lack of Food: Never True Current Housing: I Have Housing Concerned About Future Housing: No Difficulty Paying Gas/Electric Bills: No Difficulty Paying for Meds: No Currently Unemployed: No Education: Don't Know Difficulty w/ Childcare or Family Care: No Living arrangements: with family Gender identity (if verbalized by the patient): Male Sexual Orientation (if Verbalized by the Patient): Straight or Heterosexual Spiritual care concerns: No Meds Home Medications and Allergies Home Medications Medication Instructions Recorded Confirmed Type albuterol sulfate 90 mcg/actuation 2 puff inhalation Q4H PRN 11/27/19 01/11/23 Rx aerosol inhaler (ProAir HFA) shortness of breath or wheezing #8.5 grams lancets (Lancets, Super Thin) #100 ea 01/30/20 01/11/23 Rx blood sugar diagnostic (Contour #100 ea 03/19/20 01/11/23 Rx Next Test Strips) multivit with minerals-iron 18 1 tablet PO DAILY 12/10/21 01/11/23 History mg-folic ac 400 mcg-vit K 25 mcg tablet (Adults Multivitamin) vitamin B complex (B 1 tablet PO DAILY 12/10/21 01/11/23 History Complex-Vitamin B12 tablet) metformin 1,000 mg tablet 1,000 mg PO BID #180 tabs 06/25/22 01/11/23 Rx apixaban 5 mg tablet (Eliquis) 5 mg PO BID #180 tabs 07/09/22 01/11/23 Rx spironolactone 25 mg tablet 12.5 mg PO DAILY #45 tabs 08/02/22 01/11/23 Rx tamsulosin 0.4 mg capsule 0.8 mg PO DAILY #180 caps 11/02/22 01/11/23 Rx glipizide 2.5 mg tablet, extended 2.5 mg PO DAILY #90 tabs 11/09/22 01/11/23 Rx release 24 hr diltiazem HCl 180 mg 180 mg PO DAILY 12/09/22 01/11/23 History capsule,extended release 24 hr fluticasone 250 mcg-salmeter
--- NOTE | 2023-01-11 07:29 | WPDHPUPDATE1 ---
History and Physical Update Update Date/Time: 01/11/23 07:29 History and Physical has been reviewed, including an updated exam of the patient. There are NO changes in the patient's condition. Risks, benefits, and alternatives have been discussed and questions answered. Patient agrees to proceed with procedure.
[2023-01-11 07:50] VITALS: BP 119/80; PULSE 85; O2SAT 98
[2023-01-11 08:00] VITALS: BP 154/79; PULSE 78; O2SAT 98
[2023-01-11 08:07] VITALS: BP 131/71; PULSE 81; RESP 14; O2SAT 96
[2023-01-11] MEDS: LIDOCAINE HCL 1% PF INJ 5 ML VIAL 3 ML INFILTRATE (08:10)
--- NOTE | 2023-01-11 08:43 | W.PM.PROC2 ---
Procedure Note - Detailed Date of Procedure 01/11/23 Pre-op Diagnosis Lumbosacral Stenosis with Neurogenic Claudication, Lumbosacral Radiculopathy Post-op Diagnosis Same Procedure Performed RIghtward L4-5 Lumbar Interlaminar Epidural Steroid Injection With Fluoroscopy and Contrast Control. Surgeon Jose Quinones MD Anesthesia Local Indications Lumbosacral radiculopathy, lumbar spinal stenosis and chronic pain Description of Procedure INFORMED CONSENT: Risks, benefits and alternatives to the procedure were discussed in detail with the patient who expressed explicit understanding and consent to proceed. Patient was informed verbally and in written form regarding the risks associated with the procedure including the low risk of serious infection, bleeding/bruising, allergic reaction, nerve or organ injury, paralysis, procedural site pain or discomfort, worsening pain and/or mobility, failure to treat and/or disfigurement. The patient expressed explicit understanding and consent to proceed. All materials required for the procedure were available prior to procedure start. Site and side were marked prior to procedure and confirmed in the presence of the patient. PROCEDURE IN DETAIL: The patient was brought to the procedural suite and placed in the prone position. Patient was made comfortable with use of pillows under the head/chest, hips and ankles. Skin overlying the injection site was prepared broadly with ChloraPrep applicator and draped in a sterile manner. Aseptic technique was employed throughout. The endplates of the vertebral body at the site of interest were aligned in the AP view. Slight caudad tilt and ipsilateral oblique angulation was utilized to optimize visualization of the targeted posterior intervertebral foramen at L4-5. Local anesthesia was established by infiltration with approximately 5 mL of 2% lidocaine via a 1-1/2 inch 27-gauge needle. A 20-gauge 4-inch Tuohy epidural needle was advanced intermittently until appropriate loss of resistance to air was identified via plastic loss of resistance syringe. Lateral view was used to confirm the appropriate positioning of the needle tip within the posterior epidural space. In the AP and lateral views, a total of 2.0 mL of Omnipaque 300 contrast medium was injected after negative aspiration for CSF, blood or other bodily fluid, showing appropriate posterior epidural spread of contrast without evidence of intravascular or intrathecal placement. After a repeat negative aspiration for blood or other bodily fluid, a 6 mL solution containing 10 mg of dexamethasone in sterile PF Normal Saline was injected after negative repeat aspiration. Appropriate spread of the injectate was confirmed with washout of previously injected contrast. No parasthesias were elicited. Needle was removed completely intact without difficulty. Images were saved and documented in the patient chart. Patient's skin was cleaned and sterile bandage applied. The patient tolerated the procedure well. The patient was transported to the recovery area in stable condition where they were observed for an appropriate amount of time prior to discharge, without evidence of complication. The patient was instructed to avoid excessive activity for the next 48 hours, including climbing and frequent use of stairs. Showers only for 48 hours. They were instructed not to drive or operate heavy machinery for 24 hours. They are to monitor for severe headaches, fevers, chills, night sweats, erythema/swelling at the site or any other signs of infection, bleeding/bruising, bowel or bladder changes as well as new pain, weakness or numbness in the upper or lower extremity. Should they notice these changes, they are instructed to call our office immediately or report directly to the nearest Emergency Department if no answer or if after posted office hours. COMPLICATIONS: None COMMENTS: None EXPOSURE: Time: 20.1s, Dose: 15.55mGy CONTRAST WASTED: 28mL Omnipaque
== END 2023-01-11 08:24 | disposition home or self-care (01) ==
PROVIDERS: PCP Family Medicine; Visit Provider Anesthesiology Pain Medicine
PROC: (CPT 62323; principal; 2023-01-11 07:30)
DX: M48.07 Spinal stenosis, lumbosacral region (principal); M54.17 Radiculopathy, lumbosacral region
CPT/HCPCS: 62323; 99199

== ENCOUNTER 2023-03-24 08:01 | Outpatient (CLI) | payer OTHER, SELFPAY ==
--- NOTE | ~2023-03-24 | NM_ITS ---
EXAMINATION: NM majo stress w perfusion DATE: 03/24/2023 10:22 INDICATION: Dyspnea TECHNIQUE: Rest images were obtained following intravenous administration of 10.4 mCi Tc99m tetrofosm in (Myoview). The patient was infused intravenously with Lexiscan (Regadenoson). Then, 34.6 mCi Tc99m tetrofosmin (Myoview) was administered intravenously, and stress images were obtained. Data was kit nstructed into short axis and horizontal and vertical long axis SPECT images. Gated SPECT images were also obtained. COMPARISON: None. FINDINGS: There is a mild fixed perfusion defect involving the apical septal, anteroseptal, mid anter ior and mid anterolateral segments consistent with infarct. There is a reversible perfusion defect of moderate severity consistent with ischemia involving the apical, inferoapical, mid inferolateral seg ments. The regions of infarct and ischemia made at the apical lateral segment where there is a partia lly reversible perfusion defect. There is normal left ventricular chamber size, wall motion and eject ion fraction. Left ventricular ejection fraction measures >70%. IMPRESSION: 1. Moderate sized mild fixed infarct involving portion of the left anterior descending coronary arter y vascular distribution with moderate size region of moderate reversible ischemia involving primarily the circumflex coronary artery vascular distribution as detailed above.. 2. Left ventricular ejection fraction measuring >70%. Reviewed, dictated and finalized at location A. SCRAP HANDLER IMPRESSION: 1. Moderate sized mild fixed infarct involving portion of the left anterior aleksander cending coronary artery vascular distribution with moderate size region of mode rate reversible ischemia involving primarily the circumflex coronary artery vas cular distribution as detailed above.. 2. Left ventricular ejection fraction measuring >70%.
--- NOTE | 2023-03-24 08:30 | EST_ITS ---
Patient Info Name: Chrsitian Villa Age: 82 years : 1940 Gender: Male Ht: 71 in Wt: 237 lbs BSA: 2.35 m2 HR: 71 bpm BP: 148 / 64 mmHg Heart Rhythm: Atrial Fibrillation Exam Date: 03/24/2023 9:08 AM Exam Location: [facility] Patient Status: Outpatient Admit Date: 03/24/2023 Staff Ordering Physician: Colby Noonan DO Attending Provider: Colby Noonan DO Exercise Technologist: Mena Mcdonald CT Exercise Physician: Colby Noonan DO Exam Type: CA stress majo w NM Study Info Indications R06.09 - Other forms of dyspnea A regadenoson stress test was performed. Summary 1. 1. Negative lexiscan stress test for ischemic ST changes by ECG criteria. 2. 2. Stable hemodynamics throughout the test. 3. 3. Nuclear scan to follow and will be reported separately. Please correlate with it. 4. 4. Patient informed of the above results. Protocol: Lexiscan Stress ECG Details Stage: REST Duration (min): 2 min : 23 sec HR (bpm): 78 SBP (mmHg): 148 DBP (mmHg): 64 Stage: REST Duration (min): 5 min : 13 sec HR (bpm): 76 SBP (mmHg): 148 DBP (mmHg): 64 Stage: STAGE 1 Duration (min): 0 min : 59 sec HR (bpm): 89 SBP (mmHg): 127 DBP (mmHg): 56 Stage: RECOVERY Duration (min): 1 min : 0 sec HR (bpm): 100 SBP (mmHg): 127 DBP (mmHg): 56 Stage: RECOVERY Duration (min): 2 min : 0 sec HR (bpm): 90 SBP (mmHg): 127 DBP (mmHg): 56 Stage: RECOVERY Duration (min): 2 min : 57 sec HR (bpm): 86 SBP (mmHg): 124 DBP (mmHg): 55 Rest HR: 76 bpm Peak HR: 100 bpm Rest Sys BP: 148 mmHg Peak Sys BP: 127 mmHg Max Pred HR: 139 bpm % Max Pred HR: 72 % Target HR: 118 bpm Max RPP: 12,700 bpm*mmHg Termination Reason: Completed protocol Cardiac Symptoms: Shortness of breath Total Time: 1 min : 0 sec Rest Glasgow BP: 64 mmHg Peak Glasgow BP: 56 mmHg Total Dose: 0.4 mg Resting ECG Atrial fibrillation, delayed precordial R/S transition. Stress ECG No ST changes. Arrhythmias None. Report Signatures
== END 2023-03-24 08:02 | disposition home or self-care (01) ==
PROVIDERS: PCP Family Medicine; Visit Provider Internal Medicine Cardiovascular Disease
DX: R06.09 Other forms of dyspnea (principal); Z01.810 Encounter for preprocedural cardiovascular examination
CPT/HCPCS: 78452; 93017; A9502; J2785

== ENCOUNTER 2023-04-14 02:06 | Day surgery (SDC) | payer OTHER, SELFPAY ==
--- NOTE | 2023-04-13 15:54 | PC.NURSE ---
Pt refuses to do pre-op call today. Pt refuses to provide nurse with updated med list. Pt refuses to come early in order to complete pre-op questions prior to procedure.
[2023-04-14] VITALS (15 sets, daily range): BP systolic 102–146; BP diastolic 54–88; PULSE 60–89; RESP 14–16; TEMP 36.2; O2SAT 96–98; BMI 31.4
[2023-04-14 07:48] LABS: Basophils Absolute Auto 0.1 K/mm3 (0.0-0.1); Basophils Percent Auto 0.5 % (0.2-1.2); Eosinophils Absolute Auto 0.2 K/mm3 (0-0.3); Eosinophils Percent Auto 1.9 % (0-4.4); Hematocrit 50.4 % (42.0-52.0); Immature Granulocyte Absolute 0.05 K/mm3 (0.00-0.031); Immature Granulocyte Percent A 0.5 % (0-0.5); Lymphocytes Percent Auto 31.2 % (18.3-44.2); Mean Corpuscular HGB Conc 31.7 g/dl (32-36); Mean Corpuscular Hemoglobin 30.8 pg (26-34); Mean Corpuscular Volume 97.1 fl (80-100); Mean Platelet Volume 9.7 fl (7.4-10.4); Monocytes Absolute Auto 0.7 K/mm3 (0.1-0.6); Monocytes Percent Auto 7.2 % (2.6-8.5); Neutrophils Absolute Auto 5.8 K/mm3 (1.3-6.7); Neutrophils Percent Auto 58.7 % (45.5-73.1); Platelet Count Result 220 k/mm3 (150-375); Red Blood Count 5.19 M/mm3 (4.6-6.20); Red Cell Distribution Width 14.8 % (11.5-14.5)
[2023-04-14 08:25] LABS: Anion Gap 9 mmol/L (8-16); Blood Urea Nitrogen 33 mg/dL (9-20); Calcium 9.1 mg/dL (8.4-10.2); Carbon Dioxide 20 mmol/L (22-30); Chloride 109 mmol/L (98-107); Estimated CRCL calculation 42 ml/min; Estimated Glomerular Filt Rate 45; Glucose 88 mg/dL (65-110); Potassium 4.6 mmol/L (3.4-5.0); Sodium 138 mmol/L (137-145)
--- NOTE | 2023-04-14 09:01 | WPDHPUPDATE1 ---
History and Physical Update Update Date/Time: 04/14/23 09:01 History and Physical has been reviewed, including an updated exam of the patient. There are NO changes in the patient's condition. Risks, benefits, and alternatives have been discussed and questions answered. Patient agrees to proceed with procedure.
--- NOTE | 2023-04-14 09:01 | WPDMODSED ---
Moderate Sedation Note-Pt Data Patient Data Diagnosis: Abnormal stress test Present Complaint: Abnormal stress test Procedure to be performed/Plan: Coronary angiography, left heart cath, +/- PCI Allergies Allergy/AdvReac Type Severity Reaction Status Date / Time Opioids - Morphine Analogues AdvReac Intermediate Nausea and Verified 04/14/23 07:21 Vomiting Home Medications Medication Instructions Recorded Confirmed Type albuterol sulfate 90 mcg/actuation 2 puff inhalation Q4H PRN 11/27/19 04/14/23 Rx aerosol inhaler (ProAir HFA) shortness of breath or wheezing #8.5 grams lancets (Lancets, Super Thin) #100 ea 01/30/20 03/25/23 Rx blood sugar diagnostic (Contour #100 ea 03/19/20 03/25/23 Rx Next Test Strips) multivit with minerals-iron 18 1 tablet PO DAILY 12/10/21 04/14/23 History mg-folic ac 400 mcg-vit K 25 mcg tablet (Adults Multivitamin) vitamin B complex (B 1 tablet PO DAILY 12/10/21 04/14/23 History Complex-Vitamin B12 tablet) metformin 1,000 mg tablet 1,000 mg PO BID #180 tabs 06/25/22 04/14/23 Rx apixaban 5 mg tablet (Eliquis) 5 mg PO BID #180 tabs 07/09/22 04/14/23 Rx spironolactone 25 mg tablet 12.5 mg PO DAILY #45 tabs 08/02/22 04/14/23 Rx tamsulosin 0.4 mg capsule 0.8 mg PO DAILY #180 caps 11/02/22 04/14/23 Rx glipizide 2.5 mg tablet, extended 2.5 mg PO DAILY #90 tabs 11/09/22 04/14/23 Rx release 24 hr diltiazem HCl 180 mg 180 mg PO DAILY 12/09/22 04/14/23 History capsule,extended release 24 hr fluticasone 250 mcg-salmeterol 50 1 inh inhalation BID 12/09/22 04/14/23 History mcg/dose blistr powdr for inhalation (Wixela Inhub) methocarbamol 750 mg tablet 750 mg PO TID PRN rib pain/spasm 12/10/22 04/14/23 Rx #30 tabs tramadol 50 mg tablet 50 mg PO Q6H PRN pain #30 tabs 12/10/22 04/14/23 Rx finasteride 5 mg tablet 5 mg PO DAILY #90 tabs 01/10/23 04/14/23 Rx furosemide 40 mg tablet 40 mg PO BID #180 tabs 01/10/23 04/14/23 Rx pravastatin 40 mg tablet 40 mg PO DAILY #90 tabs 01/10/23 04/14/23 Rx oxybutynin chloride 15 mg 15 mg PO HS 04/14/23 04/14/23 History tablet,extended release 24 hr Current Medications: Active Medications Sodium Chloride (Normal Saline Iv) 500 mls @ 100 mls/hr IV CONT .Q5H MELISSA Sedation/Anesthesia: No previous sedation/anesthesia problems (including family history). [facility] Past Medical History Medical History Atrial fibrillation BPH (benign prostatic hyperplasia) Chronic kidney disease, stage 3 Chronic obstructive pulmonary disease, unspecified COVID-19 Encounter for general health examination Essential hypertension Hyperlipidemia Irregular heart rhythm Long COVID Mixed hyperlipidemia ANEUDY (obstructive sleep apnea) Not on CPAP ANEUDY (obstructive sleep apnea) Pneumonia due to COVID-19 virus Respiratory failure with hypoxia Tachycardia Type 2 diabetes mellitus with diabetic polyneuropathy Surgical History Surgical History History of back surgery Lumbar fusion History of cataract surgery Family History Family History Sibling Patient's sister is in good health Patient's brother is in good health Father Heart disease Acute myocardial infarction Mother Acute myocardial infarction Social History Social History Social History: He lives in [place] with his of 60 years. 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 He quit smoking over 50 years ago. He only had a 15 pack per year smoking history. He denies any alcohol or illicit substance use. Code status: Full code Smoking packs per day: 1 Smoking cigarettes per day: 20.0 Years smoked: 15 Smoking pack-years: 15.00 Smoking status: Never smoker Tobacco type: cigarettes Second bentley
--- NOTE | 2023-04-14 09:58 | WPDCARDPROC ---
Cardiac Cath Procedure Note Date of procedure:: 04/14/23 Performing physician:: CATHETERIZATION LABORATORY REPORT Procedure Date: 04/14/2023 Dock Grader: Dilip Elaine M.D., [facility]? Referring Physician: Colby Noonan M.D. ? Anesthesia: Versed and Fentanyl were ordered and given in my presence at 09:21, procedure ended at 09:50. Supervision of nurse monitored moderate sedation with Versed and Fentanyl was provided for 31 minutes. Total of Versed 1 mg and Fentanyl 25 mcg were administered by the Telecom Manager RN Saul Rudolph. Pre-op Diagnosis: Coronary artery disease Post-op Diagnosis: 1. Multivessel coronary artery disease involving proximal LAD, distal LCX, and mid RCA. 2. Left ventricular end-diastolic pressure of 22mmHg Procedure(s): Left heart catheterization with coronary angiography Access Site: Right radial artery Brief History and Clinical Indications: Patient is an 82 year old male with atrial fibrillation, diabetes, obstructive sleep apnea, dyslipidemia who is referred for [facility] for dyspnea on exertion and abnormal stress test. All risks, benefits and alternatives to left heart catheterization with or without percutaneous coronary intervention was discussed at length with the patient. Risk of complications including but not limited to bleeding, infection, arrhythmia, stroke, worsening kidney function, blood loss, groin hematoma, limb loss, emergency coronary artery bypass grafting, and even were discussed with the patient and all questions were answered. The patient understood and wished to proceed. Time out called, patient name, date of , medical record number, allergies, procedure performed, identify Dock Grader, patient and staff member concurred with accurate data, procedure carried on. Findings: LEFT HEART CATHETERIZATION FINDINGS: 1. Left main: The left main coronary artery is widely patent without any significant obstructive disease. 2. Left anterior descending: Calcifications seen in the proximal LAD. An eccentric hazy, calcific 80% stenosis is seen in the proximal LAD. There is a 70% stenosis in the mid portion of the LAD. Remainder of the LAD has luminal irregularities. Diagonal branches are of very small caliber. 3. Left circumflex: The proximal and mid LCX has luminal irregularities. The distal LCX has a long stenosis of about 90%. There is a small caliber OM branch with mild diffuse disease. OM-2 has a moderate stenosis in the mid portion. 4. Right coronary artery: The right coronary artery is the dominant vessel. The mid portion has a 90% stenosis. The mid RPDA has two tandem stenoses of 60-70%. 5. Left ventricle: A. End-diastolic pressure 22mmHg. B. LV gram deferred. C. No significant gradient across aortic valve on catheter pullback. Description of Procedure: Informed consent signed and placed in the chart. Patient transferred to dental lab technician room. Prepped and draped in usual sterile fashion. 2% lidocaine injected subcutaneously in right wrist area. 22-gauge venipuncture catheter used to access the right radial artery under ultrasound guidance. 6-FR slender sheath placed in right radial artery. Nitroglycerine and Verapamil were given intraarterial through the sheath. Versacore wire advanced under fluoroscopy 5F Tig 4 diagnostic catheter engaged Left Main Coronary Artery. 5F Tig 4 diagnostic catheter engaged Right Coronary Artery Multiple orthogonal angiogram obtained and reviewed 5F Pigtail diagnostic catheter crossed aortic valve to obtain LVEDP, LV angiogram deferred. Hemostasis was achieved by application of TR band. Post Operative Condition: Stable No significant blood loss Disposition: Home Plan: The patient will be monitored in the recovery area. The above findings were discussed with the referring physician. Recommend CT Surgery consultation for consideration of surgical revascularization. Continue aggressive medical therapy and risk factor modification. ? R
== END 2023-04-14 14:50 | disposition home or self-care (01) ==
PROVIDERS: PCP Family Medicine; Visit Provider Internal Medicine
PROC: 4A023N7 Measurement of Cardiac Sampling and Pressure, Left Heart, Percutaneous Approach (ICD-10-PCS; CPT 93452; principal; 2023-04-14 08:30)
DX: I25.10 Atherosclerotic heart disease of native coronary artery without angina pectoris (principal); R94.39 Abnormal result of other cardiovascular function study; R06.09 Other forms of dyspnea; I12.9 Hypertensive chronic kidney disease with stage 1 through stage 4 chronic kidney disease, or unspecified chronic kidney disease; E11.22 Type 2 diabetes mellitus with diabetic chronic kidney disease; N18.30 Chronic kidney disease, stage 3 unspecified; J44.9 Chronic obstructive pulmonary disease, unspecified; E78.2 Mixed hyperlipidemia; E11.42 Type 2 diabetes mellitus with diabetic polyneuropathy; I48.91 Unspecified atrial fibrillation; G47.33 Obstructive sleep apnea (adult) (pediatric); Z79.51 Long term (current) use of inhaled steroids; Z79.01 Long term (current) use of anticoagulants; Z79.84 Long term (current) use of oral hypoglycemic drugs; Z87.891 Personal history of nicotine dependence
CPT/HCPCS: 36415; 80048; 85025; 93458; A9270; C1769; C1887; C1894; J1644; J2250; J2305; J3010; J7040

== ENCOUNTER 2023-05-19 09:39 | Emergency (ER) | payer OTHER, SELFPAY ==
[2023-05-19 09:51] VITALS: BP 129/56; PULSE 104; RESP 16; TEMP 37.3; O2SAT 94
--- NOTE | 2023-05-19 10:31 | ED.URI ---
HPI - URI/Sore Throat General Chief Complaint: Upper Respiratory Infection Stated Complaint: cough Time Seen by Provider: 05/19/23 10:31 Source: patient and RN notes reviewed Mode of arrival: ambulatory Limitations: no limitations History of Present Illness HPI Narrative: 82-year-old male history of AFib, CAD, COPD, CHF presented for complaint of headache, sore throat, body aches, sinus pressure/congestion, cough, fever/chills. Cough is productive and endorses occasional wheezing. Onset 05/13. Denies worsening sob from baseline, n/v/d. Using albuterol inhaler daily. MD elicited complaint: cough Related Data Home Medications Medication Instructions Recorded Confirmed multivit with minerals-iron 18 1 tablet PO DAILY 12/10/21 05/19/23 mg-folic ac 400 mcg-vit K 25 mcg tablet (Adults Multivitamin) vitamin B complex (B 1 tablet PO DAILY 12/10/21 05/19/23 Complex-Vitamin B12 tablet) diltiazem HCl 180 mg 180 mg PO DAILY 12/09/22 05/19/23 capsule,extended release 24 hr fluticasone 250 mcg-salmeterol 50 1 inh inhalation BID 12/09/22 05/19/23 mcg/dose blistr powdr for inhalation (Wixela Inhub) oxybutynin chloride 15 mg 15 mg PO HS 04/14/23 05/19/23 tablet,extended release 24 hr Allergies Allergy/AdvReac Type Severity Reaction Status Date / Time Opioids - Morphine Analogues AdvReac Intermediate Nausea and Verified 05/19/23 10:01 Vomiting Review of Systems Review of Systems: CONSTITUTIONAL: denies malaise, chills, sweats, fever EYES: Denies visual changes, redness, or discharge ENT: Reports rhinorrhea, congestion, denies otalgia, sore throat CARDIOVASCULAR: Denies chest pain, palpitations, edema RESPIRATORY: Reports cough, post nasal drainage. Denies dyspnea GASTROINTESTINAL: Denies abdominal pain, nausea, vomiting, diarrhea SKIN: Denies rash or itching MUSCULOSKELETAL: denies myalgia NEUROLOGIC: Denies headache PMFSH Past Medical History Medical History Atrial fibrillation BPH (benign prostatic hyperplasia) Chronic kidney disease, stage 3 Chronic obstructive pulmonary disease, unspecified COVID-19 Encounter for general health examination Essential hypertension Hyperlipidemia Irregular heart rhythm Long COVID Mixed hyperlipidemia ANEUDY (obstructive sleep apnea) Not on CPAP ANEUDY (obstructive sleep apnea) Pneumonia due to COVID-19 virus Respiratory failure with hypoxia Tachycardia Type 2 diabetes mellitus with diabetic polyneuropathy Surgical History Surgical History History of back surgery Lumbar fusion History of cataract surgery Family History Family History Sibling Patient's sister is in good health Patient's brother is in good health Father Heart disease Acute myocardial infarction Mother Acute myocardial infarction Social History Social History Social History: He lives in [place] with his of 60 years. 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 He quit smoking over 50 years ago. He only had a 15 pack per year smoking history. He denies any alcohol or illicit substance use. Code status: Full code Smoking packs per day: 1 Smoking cigarettes per day: 20.0 Years smoked: 15 Smoking pack-years: 15.00 Smoking status: Never smoker Tobacco type: cigarettes Second hand tobacco smoke exposure: No Smoking end date: [birth year]16/1950 Alcohol intake: unknown Substance use: never Substance use type: does not use Lack of Transportation: No Lack of Food: Never True Current Housing: I Have Housing Concerned About Future Housing: No Difficulty Paying Gas/Electric Bills: No Difficulty Paying for Meds: No Currently Unemployed: No Education: Don't Know
== END 2023-05-19 10:55 | disposition home or self-care (01) ==
PROVIDERS: Emergency Provider Nurse Practitioner Family; PCP Family Medicine
DX: J06.9 Acute upper respiratory infection, unspecified (principal); Z20.822 Contact with and (suspected) exposure to COVID-19; Z87.891 Personal history of nicotine dependence; I48.91 Unspecified atrial fibrillation; N40.0 Benign prostatic hyperplasia without lower urinary tract symptoms; I13.0 Hypertensive heart and chronic kidney disease with heart failure and stage 1 through stage 4 chronic kidney disease, or unspecified chronic kidney disease; I50.9 Heart failure, unspecified; N18.30 Chronic kidney disease, stage 3 unspecified; E11.22 Type 2 diabetes mellitus with diabetic chronic kidney disease; Z79.84 Long term (current) use of oral hypoglycemic drugs; J44.9 Chronic obstructive pulmonary disease, unspecified; E78.2 Mixed hyperlipidemia; E11.42 Type 2 diabetes mellitus with diabetic polyneuropathy; I25.10 Atherosclerotic heart disease of native coronary artery without angina pectoris
CPT/HCPCS: 87426; 87804; 99213; C9803; G0463

== ENCOUNTER 2024-04-24 11:47 | Emergency (ER) | payer OTHER, SELFPAY ==
--- NOTE | ~2024-04-24 | XR_ITS ---
EXAMINATION: XR chest 2V DATE: 04/24/2024 12:26 INDICATION: Productive cough TECHNIQUE: PA and lateral views of the chest were obtained. COMPARISON: Chest radiograph dated 12/09/2022 FINDINGS: Interstitial and airspace opacities in the dependent aspect of the bilateral lower lobes. No pleural effusion or pneumothorax. Mild cardiomegaly. Mild lower thoracic dextrocurvature with moderate spondy losis. Bilateral rotator cuff arthropathy. IMPRESSION: 1. Opacities in the dependent bilateral lower lobes which could represent pneumonia, pulmonary edema, atelectasis or some combination thereof. 2. Cardiomegaly. Reviewed, dictated and finalized at location A. CAID ANALYST IMPRESSION: 1. Opacities in the dependent bilateral lower lobes which could represent pneum onia, pulmonary edema, atelectasis or some combination thereof. 2. Cardiomegaly.
[2024-04-24 11:55] VITALS: BP 141/66; PULSE 103; RESP 20; TEMP 36.7; O2SAT 92
--- NOTE | 2024-04-24 12:10 | ED.URI ---
HPI - URI/Sore Throat General Chief Complaint: Upper Respiratory Infection Stated Complaint: Weak,chest congestion BARCENAS, decreased appetite Source: patient, RN notes reviewed and old records reviewed Mode of arrival: ambulatory Limitations: no limitations History of Present Illness HPI Narrative: Patient presents with one-week history of cough, chest congestion headache, decreased appetite. He denies any fever, chills, sweats. He reports cough is becoming increasingly productive in he is becoming increasingly tired as results. States he is not wanting to eat as much as usual. He denies any injury or trauma. Denies any shortness of breath, but does report increased wheezing, especially with cough. Reports cough has become most productive in the evenings and the mornings. He voices no other concerns or complaints today Related Data Home Medications ?Medication ?Instructions ?Recorded ?Confirmed ?Last Taken ?Type multivit with minerals-iron 18 1 tablet PO DAILY 12/10/21 03/23/24 04/13/23 History mg-folic ac 400 mcg-vit K 25 mcg tablet (Adults Multivitamin) vitamin B complex (B 1 tablet PO DAILY 12/10/21 03/23/24 04/13/23 History Complex-Vitamin B12 tablet) atorvastatin 40 mg tablet 40 mg PO DAILY 10/21/23 03/23/24 Unknown History omega-3 fatty acids 1,000 mg PO DAILY 04/09/24 Unknown History Allergies Allergy/AdvReac Type Severity Reaction Status Date / Time Opioids - Morphine Analogues AdvReac Intermediate Nausea and Verified 04/09/24 14:55 Vomiting Review of Systems Review of Systems: All systems reviewed & are unremarkable except as noted in HPI and below Constitutional: Constitutional: Reports no additional constitutional complaints ENT: Reports system reviewed and no additional complaints, except as documented Cardiovascular: Cardiovascular: Reports no additional cardiovascular complaints Respiratory: Respiratory: Reports no additional respiratory complaints, Reports change in phlegm color, Reports chest congestion, Reports excessive phlegm production and Reports wheezing Gastrointestinal: Gastrointestinal: Reports no additional gastrointestinal complaints PMFSH Past Medical History Medical History Encounter for Medicare annual wellness exam Abnormal nuclear cardiac imaging test Preop cardiovascular exam CASTILLO (dyspnea on exertion) Lumbosacral radiculopathy Rib fracture Skin tear of left upper extremity Claudication of both lower extremities Dorsalgia Postlaminectomy syndrome Lumbosacral spondylosis Encounter for screening colonoscopy Brain mass Long COVID Atrial fibrillation Encounter for general health examination COVID-19 Irregular heart rhythm Nocturnal hypoxemia ANEUDY (obstructive sleep apnea) Elevated white blood cell count Tachycardia Physical deconditioning Acute kidney injury superimposed on CKD BPH (benign prostatic hyperplasia) Herpes zoster dermatitis Respiratory failure with hypoxia Pneumonia due to COVID-19 virus Cough Hyperlipidemia Screening for colon cancer Benign non-nodular prostatic hyperplasia without lower urinary tract symptoms Bilateral low back pain without sciatica Chronic obstructive pulmonary disease, unspecified Essential hypertension Medication monitoring encounter Mixed hyperlipidemia ANEUDY (obstructive sleep apnea) Not on CPAP Overweight (08/05/16) Type 2 diabetes mellitus with diabetic polyneuropathy Uncomplicated asthma Surgical History Surgical History History of back surgery Lumbar fusion History of cataract surgery Family History Family History Sibling Patient's sister is in good health Patient's brother is in good health Father Heart disease Acute myocardial infarction Mother Acute myocardial infarction Social History Social History Social History: He lives in [place] with his of 60 years. 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 He quit smoking over 50 years ago. He only had a 15 pack per year smoking history. He denies any alcohol or illicit substance use. Code status: Full code Smoking packs per day: 1 Smoking cigarettes per day: 20.0 Years smoked: 15 Smoking pack-years: 15.00 Smoking status: Never smoker Tobacco type: cigarettes Second hand tobacco smoke exposure: No Smoking end date: 05/16/1950 Alcohol intake: unknown Substance use: never Substance use type: does not use Do You Feel Safe in your Home?: Yes Lack of Transportation: No Lack of Food: Never True Current Housing: I Have Housing Concerned About Future Housing: No Difficulty Paying Gas/Electric Bills: No Difficulty Paying for Meds: No Currently Unemployed: No Education: Grade School Difficulty w/ Childcare or Family Care: No Living arrangements: with family Gender identity (if verbalized by the patient): Male Sexual Orientation (if Verbalized by the Patient): Straight or Heterosexual Spiritual care concerns: No Comments At the time of my signature, I reviewed and agree with the nursing past medical, surgical, social, and family history. There is no relevant family history pertinent to the patient complaint. Exam Const: General: cooperative, no acute distress, alert and awake Orientation/consciousness: oriented to person, oriented to place and oriented to time HENMT: Head: normal to inspection Mouth: Yes moist mucous membranes abnormal Resp: Effort & Inspection: normal respiratory effort and able to speak in complete sentences Auscultation: clear to auscultation bilaterally, no crackles, no rales, no rhonchi and wheezes scattered wheezes Cardio: Palpation: normal PMI Rate: regular rate Rhythm: regular rhythm Heart sounds: S1 normal heart sound present and S2 normal heart sound present Neuro: General: oriented to person, oriented to place and oriented to time Cranial nerves: Yes CN's II-XII intact bilaterally Psych: Appearance: grossly normal Thought process: Normal thought process present Insight: Good insight present (Psych) Judgement: Good judgement present (Psych) Course Course Level of Care: Express Care Visit Vital Signs Vital signs: Vital Signs Temperature 98.0 F 04/24/24 11:55 Pulse Rate 103 H 04/24/24 11:55 Respiratory Rate 20 04/24/24 11:55 Blood Pressure 141/66 H 04/24/24 11:55 Pulse Oximetry 92 04/24/24 11:55 Oxygen Delivery Room Air 04/24/24 11:55 Temperature 98.0 F 04/24/24 11:55 Pulse Rate 103 H 04/24/24 11:55 Respiratory Rate 20 04/24/24 11:55 Blood Pressure 141/66 H 04/24/24 11:55 Pulse Oximetry 92 04/24/24 11:55 Oxygen Delivery Room Air 04/24/24 11:55 Reviewed MDM - URI/Sore Throat MDM Narrative Medical decision making narrative: Patient is nontoxic appearing, stable for discharge home on p.o. antibiotic therapy. Steroids in addition. He does report that he has got plenty of albuterol. He is advised to go to the emergency department immediately with any new or worsening symptoms. Discharge instructions reviewed with patient, as well as provided in writing per nursing staff. The instructions also include specific and strict return/GO TO THE ER as well as f/u information. All questions have been answered, and the patient deny any further questions with discharge and discharge plan. Some parts of this dictation were generated by voice recognition software and may contain typographical and/or grammatical inaccuracies. Differential Diagnosis Differential diagnosis: Likely upper respiratory infection, sinusitis, viral infection and bronchitis Medical Records Attestation: I reviewed the patient's medical records. Imaging Data Attestation: I personally reviewed and interpreted this imaging study as follows: My impression: Bilateral lower lobe pneumonia Radiologist's impression: [facility] [address] [place] [address] XRay Report Signed Patient: Christian Villa : 1940 MR#: [id number] Age: 83 Acct:[id number] Loc: [facility] ADM Date: 04/24/24Attending Dr: Ordering Physician: Tasneem Castro FNP Date of Service: 04/24/24 Procedure(s): XR chest 2V Accession Number(s): [id number] cc: Tasneem Castro FNP; Jose Nolan EXAMINATION: XR chest 2V DATE: 04/24/2024 12:26 INDICATION: Productive cough TECHNIQUE: PA and lateral views of the chest were obtained. COMPARISON: Chest radiograph dated 12/09/2022 FINDINGS: Interstitial and airspace opacities in the dependent aspect of the bilateral lower lobes. No pleural effusion or pneumothorax. Mild cardiomegaly. Mild lower thoracic dextrocurvature with moderate spondylosis. Bilateral rotator cuff arthropathy. IMPRESSION: 1. Opacities in the dependent bilateral lower lobes which could represent pneumonia, pulmonary edema, atelectasis or some combination thereof. 2. Cardiomegaly. Reviewed, dictated and finalized at location A. HOUSE DISTRIBUTION MANAGER Dictated By: Kostas Waddell MD 04/24/24 1231 Signed By: <Electronically signed by Kostas Waddell MD in OV> 04/24/24 1233 Discharge Plan Discharge Clinical Impression: Pneumonia Qualifiers: Pneumonia type: due to unspecified organism Laterality: bilateral Lung location: lower lobe of lung Qualified Code(s): J18.9 - Pneumonia, unspecified organism Patient Disposition: Home, Self-Care Condition: Stable Instructions: Antibiotic Form, Pneumonia (ED) Additional Instructions: Take all medications as prescribed. Follow-up with primary care provider. Emergency department immediately for new or worse symptoms Patient Language: [place] Prescriptions: New prednisone 50 mg tablet 50 mg PO DAILY Qty: 5 0RF doxycycline hyclate 100 mg tablet 100 mg PO BID Qty: 20 0RF No Action vitamin B complex [B Complex-Vitamin B12] Tablet 1 tablet PO DAILY Adults Multivitamin 18 mg iron-400 mcg-25 mcg Tablet 1 tablet PO DAILY atorvastatin 40 mg tablet 40 mg PO DAILY apixaban 5 mg tablet 5 mg tablet 0RF apixaban 5 mg tablet 5 mg tablet 0RF omega-3 fatty acids Capsule 1,000 mg PO DAILY albuterol sulfate [ProAir HFA] 90 mcg/actuation HFA aerosol inhaler 2 puff INHALATION Q4H PRN (Reason: shortness of breath or wheezing) Qty: 8.5 5RF (DME) lancets [Lancets, Super Thin] Misc See Rx Instructions .ROUTE .MEDSUPPLY Qty: 100 2RF Rx Instructions: Use to check blood sugar daily (DME) Contour Next Test Strips Strip See Rx Instructions .ROUTE .MEDSUPPLY Qty: 100 0RF Rx Instructions: Use to test blood sugar once daily tamsulosin 0.4 mg capsule 0.8 mg PO DAILY Qty: 180 1RF metformin 1,000 mg tablet 1,000 mg PO BID Qty: 180 1RF clopidogrel 75 mg tablet 75 mg PO DAILY Qty: 90 2RF fluticasone propion-salmeterol [Wixela Inhub] 250-50 mcg/dose blister with device See Rx Instructions .ROUTE .COMPLEX Qty: 180 1RF Dose Instruction: INHALE 1 PUFF BY MOUTH TWICE A DAY Rx Instructions: INHALE 1 PUFF BY MOUTH TWICE A DAY Eliquis 5 mg tablet See Rx Instructions .ROUTE .COMPLEX Qty: 180 2RF Dose Instruction: TAKE 1 TABLET BY MOUTH TWICE A DAY Rx Instructions: TAKE 1 TABLET BY MOUTH TWICE A DAY finasteride 5 mg tablet See Rx Instructions .ROUTE .COMPLEX Qty: 90 1RF Dose Instruction: TAKE 1 TABLET BY MOUTH EVERY DAY Rx Instructions: TAKE 1 TABLET BY MOUTH EVERY DAY spironolactone 25 mg tablet See Rx Instructions .ROUTE .COMPLEX Qty: 45 2RF Dose Instruction: TAKE 1/2 TABLET BY MOUTH EVERY DAY Rx Instructions: TAKE 1/2 TABLET BY MOUTH EVERY DAY furosemide 40 mg tablet 40 mg PO BID Qty: 180 1RF oxybutynin chloride 15 mg tablet extended release 24hr 15 mg PO HS Qty: 90 1RF glipizide 2.5 mg tablet extended release 24hr See Rx Instructions .ROUTE .COMPLEX Qty: 90 1RF Dose Instruction: TAKE 1 TABLET BY MOUTH EVERY DAY Rx Instructions: TAKE 1 TABLET BY MOUTH EVERY DAY diltiazem HCl 180 mg capsule,extended release 24hr See Rx Instructions .ROUTE .COMPLEX Qty: 90 2RF Dose Instruction: TAKE 1 CAPSULE BY MOUTH EVERY DAY Rx Instructions: TAKE 1 CAPSULE BY MOUTH EVERY DAY Follow-up/Referrals: Jose Nolan MD [Primary Care Provider] - 1 Week (pneumonia) Time of Disposition: 13:07
[2024-04-24 12:29] LABS: EDINFLUASCREEN Negative (Negative); EDINFLUBSCREEN Negative (Negative)
[2024-04-25 07:33] LABS: EDCOVIDSCREEN Negative (Negative)
== END 2024-04-24 13:18 | disposition home or self-care (01) ==
PROVIDERS: Emergency Provider Nurse Practitioner Family; PCP Family Medicine
DX: J18.9 Pneumonia, unspecified organism (principal); Z20.822 Contact with and (suspected) exposure to COVID-19; I48.91 Unspecified atrial fibrillation; N40.0 Benign prostatic hyperplasia without lower urinary tract symptoms; J44.9 Chronic obstructive pulmonary disease, unspecified; E78.2 Mixed hyperlipidemia; E11.42 Type 2 diabetes mellitus with diabetic polyneuropathy; Z86.16 Personal history of COVID-19; Z87.891 Personal history of nicotine dependence
CPT/HCPCS: 71046; 87426; 87804; 99213; G0463

== ENCOUNTER 2024-05-02 10:24 | Observation (INO) | payer OTHER, SELFPAY ==
--- NOTE | ~2024-05-02 | CT_ITS ---
CT lumbar spine wo con Ordering provider: Panda Fontenot MD History: 83 years Male with . lower extrmity weakness . Comparison: None. Technique: CT lumbar spine without contrast. Automated exposure control and iterative reconstruction technique were employed. The dose-length product was 1260.77 mGy-cm. FINDINGS: VERTEBRAE: Normal height and alignment. No subluxation or visible acute fracture. Postoperative [place] es of the level of L5-S1. Degenerative changes of the spine. Levoscoliosis. DISC SPACES: Degenerative disc disease with narrowing at the level of L3-L4. Disc spacer at the level of L5-S1. T12-L1: No stenosis. L1-L2: No stenosis. L2-L3: No stenosis. Mild diffuse disc bulge with slight narrowing of the foramina.. L3-L4: No stenosis. Diffuse disc bulge with a right lateral protrusion. narrowing of the right forame n with root compression is seen. Thickened ligamenta flava L4-L5: No stenosis. Diffuse disc bulge with a right lateral protrusion. narrowing of the right kul[place] en with root compression is seen. Thickened ligamenta flava. L5-S1: No stenosis. PARASPINOUS SOFT TISSUES: Mild atheromatous disease of the abdominal aorta. Bilateral basal lung atel ectasis versus pneumonia. Bilateral sacroiliitis. Sclerotic area seen adjacent to the left sacroiliac joint. Follow-up advised. Left kidney stone. IMPRESSION: No acute osseous abnormality. Multilevel degenerative disc disease with variable degrees of intervertebral foraminal narrowing. Reviewed, dictated and finalized at location A. BUNDLER IMPRESSION: No acute osseous abnormality. Multilevel degenerative disc disease with variable degrees of intervertebral fo raminal narrowing.
--- NOTE | ~2024-05-02 | XR_ITS ---
XR chest 1V portable Ordering provider: Panda Fontenot MD History: 83 years Male with . weakness pt states recent pneumonia . Comparison: April 24, 2024 FINDINGS: MEDIASTINUM: The cardiac silhouette is mildly enlarged. LUNGS: No effusions or pneumothorax. Bilateral basal opacification unchanged. OTHER: No free air under the diaphragm. Degenerative changes of the spine. IMPRESSION: Bibasilar opacification suggestive of atelectasis versus pneumonia. Reviewed, dictated and finalized at location A. YOLOGY PROFESSOR
--- NOTE | ~2024-05-02 | CT_ITS ---
CT head without contrast Indication: Status post fall COMPARISON: 07/14/2022 Technique: Serial scans were obtained through the brain without the administration of contrast. Dose reduction technique was used on this scan by utilizing automated exposure control and iterative recon struction technique. The dose-length product (DLP) was 605.33 mGy-cm. Findings: Stable focal hyperdensity in the right occipital lobe. No acute infarct or acute intracrani al hemorrhage evident. The ventricles and subarachnoid spaces are dilated, consistent with mild atro phy. Low attenuation regions are seen within the periventricular white matter bilaterally, likely re presenting changes from chronic microvascular ischemic disease. There is no evidence of edema, mass effect or midline shift. There is fluid layering bilateral maxillary sinuses. The remaining visualize d paranasal sinuses and mastoid air cells are clear. Impression: No acute abnormality. 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 Atrophy and chronic white matter changes, as above. Sinus disease, as above. Reviewed, dictated and finalized at location . ON BALER Impression: No acute abnormality. Stable probable small cavernoma in the right occipital lo be. Atrophy and chronic white matter changes, as above. Sinus disease, as above.
--- NOTE | ~2024-05-02 | XR_ITS ---
XR knee RT 3V 05/03/2024 11:23 Indication: Right knee pain Procedure: 3 views right knee Comparison: No prior studies for comparison. Findings: There is severe tricompartment osteoarthritis. Small joint effusion. Chondrocalcinosis. No fracture or traumatic malalignment. Impression: 1: Severe osteoarthritis of the right knee. Reviewed, dictated and finalized at location B. R HANDLER Impression: 1: Severe osteoarthritis of the right knee.
[2024-05-02 10:24] VITALS: BP 149/85; PULSE 97; RESP 16; TEMP 36.8; O2SAT 99
--- NOTE | 2024-05-02 10:28 | ECG_ITS ---
Test Date: 2024-05-02 10:31:52 Measurements Intervals [place] Rate: 91 P: 0 KS: 0 QRS: -80 QRSD: 102 T: 40 QT: 341 QTc: 421 Interpretive Statements ATRIAL FIBRILLATION LEFT ANTERIOR FASCICULAR BLOCK [QRS AXIS <= -45, QR IN I, RS IN II] No previous ECG available for comparison Electronically Signed On 05-02-2024 14:44:24 AIR POLLUTION SPECIALIST by Dilip Elaine M.D.
[2024-05-02 10:29] VITALS: PULSE 97
[2024-05-02 11:00] LABS: Basophils Absolute Auto 0.1 K/mm3 (0.0-0.1); Basophils Percent Auto 0.5 % (0.2-1.2); Eosinophils Absolute Auto 0.1 K/mm3 (0-0.3); Eosinophils Percent Auto 0.6 % (0-4.4); Hemoglobin 17.1 g/dL (14.0-18.0); Immature Granulocyte Absolute 0.49 K/mm3 (0.00-0.031); Immature Granulocyte Percent A 3.1 % (0-0.5); Lymphocytes Absolute Auto 3.52 K/mm3 (0.9-3.2); Lymphocytes Percent Auto 22.4 % (18.3-44.2); Mean Corpuscular HGB Conc 32.9 g/dl (32-36); Mean Corpuscular Hemoglobin 30.9 pg (26-34); Mean Platelet Volume 9.5 fl (7.4-10.4); Monocytes Absolute Auto 0.8 K/mm3 (0.1-0.6); Monocytes Percent Auto 5.3 % (2.6-8.5); Neutrophils Absolute Auto 10.7 K/mm3 (1.3-6.7); Neutrophils Percent Auto 68.1 % (45.5-73.1); Platelet Count Result 349 k/mm3 (150-375); Red Blood Count 5.53 M/mm3 (4.6-6.20); Red Cell Distribution Width 14.9 % (11.5-14.5); White Blood Count 15.7 K/mm3 (4.5-10.0)
[2024-05-02 11:16] LABS: Add Urine Microscopic? YES; Appearance Urine Cloudy (Clear); Bacteria Urine None Seen /hpf; Bilirubin Urine Negative (Negative); Blood Urine Negative (Negative); Color Urine Yellow (Yellow); Glucose Urine UA Negative (Negative); Ketones Urine Trace mg/dL (Negative); Leukocyte Esterase Ur Negative LEU/UL (Negative); Nitrate Urine Negative (Negative); Non Pathogenic Casts 0-2; Protein Urine Negative (Negative); RBC Urine 0-2 /hpf (0-2); Specific Grav Ur 1.018 (1.001-1.035); Squamous Epithelial Cell Urine None Seen /hpf (Few); Urobilinogen Urine 0.2 mg/dL (<2.0); WBC Urine 0-5 /hpf (0-3); pH Urine 5.5 (5.0-9.0)
[2024-05-02 11:49] LABS: Alanine Aminotransferase 22 U/L (6-50); Albumin Level 3.3 g/dL (3.5-5.1); Alkaline Phosphatase 36 U/L (38-126); Anion Gap 5 mmol/L (4-12); Aspartate Amino Transferase 24 U/L (17-59); Bilirubin,Total 0.9 mg/dL (0.2-1.3); Blood Urea Nitrogen 49 mg/dL (9-20); Calcium 9.1 mg/dL (8.4-10.2); Carbon Dioxide 25 mmol/L (22-30); Chloride 105 mmol/L (98-107); Estimated CRCL calculation 42 ml/min; Estimated Glomerular Filt Rate 45; Glucose 95 mg/dL (65-110); Potassium 4.5 mmol/L (3.4-5.0); Sodium 135 mmol/L (137-145)
[2024-05-02 12:07] VITALS: BP 137/78; PULSE 105; RESP 17; O2SAT 97
[2024-05-02 12:33] LABS: Influenza A QL RT-PCR Negative (Negative); Influenza B QL RT-PCR Negative (Negative); RSV RNA, RT-PCR Negative (Negative); SARS-CoV-2 RNA PCR Negative (Negative)
[2024-05-02 13:29] VITALS: BP 136/88; PULSE 100; RESP 15; O2SAT 100
--- NOTE | 2024-05-02 13:36 | PCOTNOTE ---
Waiting to see pt until admitted from ED. Accidentally cancelled OT order so when admitted to the floor, pt will need new order added.
--- NOTE | 2024-05-02 14:27 | ED.WEAKNESS ---
HPI - Weakness General Chief complaint: Weakness Stated complaint: weakness Time Seen by Provider: 05/02/24 10:34 Source: patient Mode of arrival: EMS Limitations: no limitations History of Present Illness HPI Narrative: 83-year-old with a history of CAD with multiple stents, AF on apixaban and Plavix, diabetes, hypertension, neuropathy he here with the complaints of lower extremity weakness since she last night. Patient states that he was trying to walk into the house was feeling weak and fell, he states that he hit his head but no LOC. He denies any neck pain. He denies any chest pain or shortness of breath. Complaint: focal weakness (Lower extremity weakness) and difficulty walking Onset (ago): day(s) (1) Duration: constant Location: LLE and RLE Migration: none Severity: moderate Relieving factors: none Exacerbating factors: none Associated symptoms: denies other symptoms Related Data Home Medications ?Medication ?Instructions ?Recorded ?Confirmed ?Last Taken ?Type multivit with minerals-iron 18 1 tablet PO DAILY 12/10/21 03/23/24 04/13/23 History mg-folic ac 400 mcg-vit K 25 mcg tablet (Adults Multivitamin) vitamin B complex (B 1 tablet PO DAILY 12/10/21 03/23/24 04/13/23 History Complex-Vitamin B12 tablet) atorvastatin 40 mg tablet 40 mg PO DAILY 10/21/23 03/23/24 Unknown History omega-3 fatty acids 1,000 mg PO DAILY 04/09/24 Unknown History Allergies Allergy/AdvReac Type Severity Reaction Status Date / Time Opioids - Morphine Analogues AdvReac Intermediate Nausea and Verified 05/02/24 10:39 Vomiting Review of Systems Review of Systems: All systems reviewed & are unremarkable except as noted in HPI and below Constitutional: Constitutional: Reports no additional constitutional complaints Eyes: Eyes: Reports no additional eye complaints ENT: Reports system reviewed and no additional complaints, except as documented Cardiovascular: Cardiovascular: Reports no additional cardiovascular complaints Respiratory: Respiratory: Reports no additional respiratory complaints Gastrointestinal: Gastrointestinal: Reports no additional gastrointestinal complaints Musculoskeletal: Musculoskeletal: Reports as per HPI Neurologic: Reports system reviewed and no additional complaints, except as documented Psychiatric: Psychiatric: Reports no additional psychiatric complaints PMFSH Past Medical History Medical History Encounter for Medicare annual wellness exam Abnormal nuclear cardiac imaging test Preop cardiovascular exam CASTILLO (dyspnea on exertion) Lumbosacral radiculopathy Rib fracture Skin tear of left upper extremity Claudication of both lower extremities Dorsalgia Postlaminectomy syndrome Lumbosacral spondylosis Encounter for screening colonoscopy Brain mass Long COVID Atrial fibrillation Encounter for general health examination COVID-19 Irregular heart rhythm Nocturnal hypoxemia ANEUDY (obstructive sleep apnea) Elevated white blood cell count Tachycardia Physical deconditioning Acute kidney injury superimposed on CKD BPH (benign prostatic hyperplasia) Herpes zoster dermatitis Respiratory failure with hypoxia Pneumonia due to COVID-19 virus Cough Hyperlipidemia Screening for colon cancer Benign non-nodular prostatic hyperplasia without lower urinary tract symptoms Bilateral low back pain without sciatica Chronic obstructive pulmonary disease, unspecified Essential hypertension Medication monitoring encounter Mixed hyperlipidemia ANEUDY (obstructive sleep apnea) Not on CPAP Overweight (08/05/16) Type 2 diabetes mellitus with diabetic polyneuropathy Uncomplicated asthma Surgical History Surgical History History of back surgery Lumbar fusion History of cataract surgery Family History Family History Sibling Patient's sister is in good health Patient's brother is in good health Father Heart disease Acute myocardial infarction Mother Acute myocardial infarction Social History Social History Social History: He lives in [place] with his of 60 years. 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 He quit smoking over 50 years ago. He only had a 15 pack per year smoking history. He denies any alcohol or illicit substance use. Code status: Full code Smoking packs per day: 1 Smoking cigarettes per day: 20.0 Years smoked: 15 Smoking pack-years: 15.00 Smoking status: Never smoker Tobacco type: cigarettes Second hand tobacco smoke exposure: No Smoking end date: 05/16/1950 Alcohol intake: unknown Substance use: never Substance use type: does not use Do You Feel Safe in your Home?: Yes Lack of Transportation: No Lack of Food: Never True Current Housing: I Have Housing Concerned About Future Housing: No Difficulty Paying Gas/Electric Bills: No Difficulty Paying for Meds: No Currently Unemployed: No Education: Grade School Difficulty w/ Childcare or Family Care: No Living arrangements: with family Gender identity (if verbalized by the patient): Male Sexual Orientation (if Verbalized by the Patient): Straight or Heterosexual Spiritual care concerns: No Course Course Emergency Course: Notified patient about his lab work, CT findings. Did consult case management for rehab placement however patient states he does not feel comfortable going right away and to rehab center wants to know why his legs are weak. I tried to explain to him about his lab work and CT findings. He states that he cannot walk. He agreed for admission will consult PT and OT and possible placement to rehab center Discussed with the hospitalist accepted the patient Vital Signs Vital signs: Vital Signs Temperature 36.8 C 05/02/24 10:24 Pulse Rate 97 05/02/24 10:24 Respiratory Rate 16 05/02/24 10:24 Blood Pressure 149/85 H 05/02/24 10:24 Pulse Oximetry 99 05/02/24 10:24 Temperature 36.8 C 05/02/24 10:24 Pulse Rate 100 05/02/24 13:29 Respiratory Rate 15 05/02/24 13:29 Blood Pressure 136/88 05/02/24 13:29 Pulse Oximetry 100 05/02/24 13:29 MDM - Weakness Differential Diagnosis Differential diagnosis: Likely dehydration and other (muscle weakness , neuropathy) Medical Records Attestation: I reviewed the patient's medical records. Lab Data Attestation: I reviewed the patient's lab results. 05/02/24 10:38 05/02/24 11:19 Labs: Lab Results 05/02/24 05/02/24 05/02/24 Range/Units 10:38 11:04 11:19 WBC 15.7 H (4.5-10.0) K/mm3 RBC 5.53 (4.6-6.20) M/mm3 Hgb 17.1 (14.0-18.0) g/dL Hct 52.0 (42.0-52.0) % MCV 94.0 (80-100) fl MCH 30.9 (26-34) pg MCHC 32.9 (32-36) g/dl RDW 14.9 H (11.5-14.5) % Plt Count 349 D (150-375) k/mm3 MPV 9.5 (7.4-10.4) fl Immature Gran % (Auto) 3.1 H (0-0.5) % Neut % (Auto) 68.1 (45.5-73.1) % Lymph % (Auto) 22.4 (18.3-44.2) % [place] % (Auto) 5.3 (2.6-8.5) % Eos % (Auto) 0.6 (0-4.4) % Baso % (Auto) 0.5 (0.2-1.2) % Lymph # (Auto) 3.52 H (0.9-3.2) K/mm3 [place] # (Auto) 0.8 H (0.1-0.6) K/mm3 Eos # (Auto) 0.1 (0-0.3) K/mm3 Baso # (Auto) 0.1 (0.0-0.1) K/mm3 Abs Immat Gran (auto) 0.49 H (0.00-0.031) K/mm3 Absolute Neuts (auto) 10.7 H (1.3-6.7) K/mm3 Absolute Nucleated RBC 0.000 (0.0-0.012) K/mm3 Nucleated RBC % 0.0 (0.0-0.2) % Sodium 135 L (137-145) mmol/L Potassium 4.5 (3.4-5.0) mmol/L Chloride 105 (98-107) mmol/L Carbon Dioxide 25 (22-30) mmol/L Anion Gap 5 (4-12) mmol/L BUN 49 H D (9-20) mg/dL Creatinine 1.50 H (0.7-1.3) mg/dL Estim Creat Clear Calc 42 ml/min Estimated GFR 45 L (59 - ) Glucose 95 (65-110) mg/dL Calcium 9.1 (8.4-10.2) mg/dL Total Bilirubin 0.9 (0.2-1.3) mg/dL AST 24 (17-59) U/L ALT 22 (6-50) U/L Alkaline Phosphatase 36 L (38-126) U/L Total Protein 6.0 L (6.3-8.2) g/dL Albumin 3.3 L (3.5-5.1) g/dL Urine Color Yellow (Yellow) Urine Appearance Cloudy H (Clear) Urine pH 5.5 (5.0-9.0) Ur Specific [place] 1.018 (1.001-1.035) Urine Protein Negative (Negative) mg/dL Urine Glucose (UA) Negative (Negative) mg/dL Urine Ketones Trace H (Negative) mg/dL Ur Blood (Man) Negative (Negative) Urine Nitrate Negative (Negative) Urine Bilirubin Negative (Negative) Urine Urobilinogen 0.2 (<2.0) mg/dL Leukocyte Esterase Rfl Negative (Negative) ROSA/UL Urine RBC 0-2 (0-2) /hpf Urine WBC 0-5 (0-3) /hpf Ur Squamous Epith Cells None seen (Few) /hpf Urine Bacteria None seen /hpf Urine Casts 0-2 Influenza A (RT-PCR) Negative (Negative) Influenza B (RT-PCR) Negative (Negative) RSV (RT-PCR) Negative (Negative) SARS-CoV-2 RNA (RT-PCR) Negative (Negative) Imaging Data Radiologist's impression: ITS Impressions Chest X-Ray 05/02/24 11:01 IMPRESSION: Bibasilar opacification suggestive of atelectasis versus pneumonia. Head CT 05/02/24 12:28 Impression: No acute abnormality. 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 Atrophy and chronic white matter changes, as above. Sinus disease, as above. Lumbar Spine CT 05/02/24 13:39 IMPRESSION: No acute osseous abnormality. Multilevel degenerative disc disease with variable degrees of intervertebral foraminal narrowing. ECG Data EKG #1: ECG completion date: 05/02/24 ECG completion time: 10:31 EKG Interpretation: normal rate (91), atrial fibrillation, normal QRS and NL axis Discharge Plan Discharge Clinical Impression: Lower extremity weakness, Frequent falls Patient Disposition: Still a Patient Condition: Stable Patient Language: Malaysian Prescriptions: No Action vitamin B complex [B Complex-Vitamin B12] Tablet 1 tablet PO DAILY Adults Multivitamin 18 mg iron-400 mcg-25 mcg Tablet 1 tablet PO DAILY prednisone 50 mg tablet 50 mg PO DAILY Qty: 5 0RF doxycycline hyclate 100 mg tablet 100 mg PO BID Qty: 20 0RF atorvastatin 40 mg tablet 40 mg PO DAILY apixaban 5 mg tablet 5 mg tablet 0RF apixaban 5 mg tablet 5 mg tablet 0RF omega-3 fatty acids Capsule 1,000 mg PO DAILY albuterol sulfate [ProAir HFA] 90 mcg/actuation HFA aerosol inhaler 2 puff INHALATION Q4H PRN (Reason: shortness of breath or wheezing) Qty: 8.5 5RF (DME) lancets [Lancets, Super Thin] Misc See Rx Instructions .ROUTE .MEDSUPPLY Qty: 100 2RF Rx Instructions: Use to check blood sugar daily (DME) Contour Next Test Strips Strip See Rx Instructions .ROUTE .MEDSUPPLY Qty: 100 0RF Rx Instructions: Use to test blood sugar once daily tamsulosin 0.4 mg capsule 0.8 mg PO DAILY Qty: 180 1RF metformin 1,000 mg tablet 1,000 mg PO BID Qty: 180 1RF clopidogrel 75 mg tablet 75 mg PO DAILY Qty: 90 2RF fluticasone propion-salmeterol [Wixela Inhub] 250-50 mcg/dose blister with device See Rx Instructions .ROUTE .COMPLEX Qty: 180 1RF Dose Instruction: INHALE 1 PUFF BY MOUTH TWICE A DAY Rx Instructions: INHALE 1 PUFF BY MOUTH TWICE A DAY Eliquis 5 mg tablet See Rx Instructions .ROUTE .COMPLEX Qty: 180 2RF Dose Instruction: TAKE 1 TABLET BY MOUTH TWICE A DAY Rx Instructions: TAKE 1 TABLET BY MOUTH TWICE A DAY finasteride 5 mg tablet See Rx Instructions .ROUTE .COMPLEX Qty: 90 1RF Dose Instruction: TAKE 1 TABLET BY MOUTH EVERY DAY Rx Instructions: TAKE 1 TABLET BY MOUTH EVERY DAY spironolactone 25 mg tablet See Rx Instructions .ROUTE .COMPLEX Qty: 45 2RF Dose Instruction: TAKE 1/2 TABLET BY MOUTH EVERY DAY Rx Instructions: TAKE 1/2 TABLET BY MOUTH EVERY DAY furosemide 40 mg tablet 40 mg PO BID Qty: 180 1RF oxybutynin chloride 15 mg tablet extended release 24hr 15 mg PO HS Qty: 90 1RF glipizide 2.5 mg tablet extended release 24hr See Rx Instructions .ROUTE .COMPLEX Qty: 90 1RF Dose Instruction: TAKE 1 TABLET BY MOUTH EVERY DAY Rx Instructions: TAKE 1 TABLET BY MOUTH EVERY DAY diltiazem HCl 180 mg capsule,extended release 24hr See Rx Instructions .ROUTE .COMPLEX Qty: 90 2RF Dose Instruction: TAKE 1 CAPSULE BY MOUTH EVERY DAY Rx Instructions: TAKE 1 CAPSULE BY MOUTH EVERY DAY Follow-up/Referrals: Jose Nolan MD [Primary Care Provider] - Time of Disposition: 15:38
[2024-05-02 16:02] VITALS: BP 139/75; PULSE 72; RESP 12; O2SAT 96
--- NOTE | 2024-05-02 17:27 | ADMGEN ---
This patient, Christian Villa, was admitted to Medical Room 245-. Patient/family oriented to hospital policies and general routines including ID bracelet, bed and alarms, visiting hours, pain management, procedures, bathroom and other care routines, personal items, smoking policy, room service/diet, and visiting hours. Information on how to activate the Rapid Response Team has been discussed. Patient/Family are encouraged to report perceived risks to care and to ask questions if they do not understand what they are told or what they should do.
--- NOTE | 2024-05-02 17:36 | PCCCNOTE ---
Called to the ED for possible placement. Pt does not want placement until they figure out why he can suddenly not ambulate. No facilities contacted at this time.
[2024-05-02 17:49] LABS: Glucose Point of Care 149 mg/dl (65-105)
[2024-05-02 17:54] VITALS: BMI 31.6
--- NOTE | 2024-05-02 18:23 | PC.NURSE ---
Patient cannot tell me his home medications, called patients' pharmacy and left a voicemail, will try to call .
[2024-05-02 21:06] LABS: Glucose Point of Care 144 mg/dl (65-105)
[2024-05-02 22:00] VITALS: BP 148/77; PULSE 81; RESP 18; TEMP 36.6; O2SAT 95
[2024-05-03] MEDS: ATORVASTATIN 40 MG TABLET PO ×2 (00:01→17:07)
[2024-05-03] MEDS: oxyBUTYnin CHLORIDE XL 5 MG TAB.ER.24 15 MG PO ×2 (00:01→21:25)
[2024-05-03 06:00] VITALS: BP 144/82; PULSE 99; RESP 18; TEMP 37.1; O2SAT 95
[2024-05-03 06:05] LABS: Hematocrit 47.9 % (42.0-52.0); Hemoglobin 15.6 g/dL (14.0-18.0); Mean Corpuscular HGB Conc 32.6 g/dl (32-36); Mean Corpuscular Hemoglobin 31.1 pg (26-34); Mean Corpuscular Volume 95.4 fl (80-100); Mean Platelet Volume 9.3 fl (7.4-10.4); Platelet Count Result 272 k/mm3 (150-375); Red Blood Count 5.02 M/mm3 (4.6-6.20); Red Cell Distribution Width 14.8 % (11.5-14.5); White Blood Count 12.1 K/mm3 (4.5-10.0)
--- NOTE | 2024-05-03 06:10 | PM.IMHP ---
H&P: HPI History of Present Illness Date/Time: 05/03/24 06:10 Chief Complaint: Generalized weakness Narrative: 83-year-old male with a past medical history of coronary artery disease, obstructive sleep apnea noncompliant of CPAP, COPD, BPH, CHF, chronic kidney disease stage 3 and chronic gait instability who presented to the ER via EMS due to fall and requiring lift assist. Is the patient reports that he is in week for a long time any ambulates with a walker she. However he has been on antibiotics for pneumonia for about 7 days with doxycycline. He reports his cough is gotten better since he started on antibiotics but he still is weak. He was able to climb the 4 5 steps to his porch walk across his porch but then could not get up the last large step as a result he fell and developed multiple skin tears. The following morning he was so weak that he was unable to get up from his recliner. He he denies any chest pain or shortness of breath. He has been having chronic weak urine stream but he states that it is at baseline. He denies any dysuria changes in urinary frequency. He has been having normal bowel movements without hematochezia or melena. He does have chronic lower extremity swelling which he thinks is at baseline. Review of Systems Review of Systems: 12 systems were reviewed with pertinent positives and negatives per HPI. Except as documented in the HPI, all other systems were reviewed and are negative. [facility] Past Medical History Medical History (Updated 05/03/24 @ 06:50 by Maryuri Srivastava DO) Lumbosacral stenosis with neurogenic claudication With epidural steroid injection L4-L5 December 2022 Mild cognitive impairment COPD with asthma Lumbosacral radiculopathy Claudication of both lower extremities Dorsalgia Postlaminectomy syndrome Lumbosacral spondylosis Brain mass Long COVID Atrial fibrillation ANEUDY (obstructive sleep apnea) Does not tolerate CPAP BPH (benign prostatic hyperplasia) Hyperlipidemia Benign non-nodular prostatic hyperplasia without lower urinary tract symptoms Essential hypertension Mixed hyperlipidemia ANEUDY (obstructive sleep apnea) Not on CPAP Type 2 diabetes mellitus with diabetic polyneuropathy Surgical History Surgical History (Updated 05/03/24 @ 06:36 by Maryuri Srivastava DO) History of cardiac catheterization 03/2023 demonstrated multivessel coronary disease to 80% stenosis of the proximal LAD 70% stenosis midportion of LAD very small diagonal branch, proximal and mid left circ have luminal irregularities 90% long stenosis left circumflex, small caliber obtuse marginal branch with mild diffuse disease obtuse marginal 2 has a moderate stenosis of the midportion right coronary artery is dominant vessel with 90% stenosis of the midportion and mid RPDA has 2 tandem stenosis is of 60-70% the patient was referred for CV surgery however the patient then underwent staged procedure at [facility] with PCI and stent to mid distal left circ and in September 2023 he had a PCI to the mid RCA History of back surgery Lumbar fusion History of cataract surgery Family History Family History Sibling Patient's sister is in good health Patient's brother is in good health Father Heart disease Acute myocardial infarction Mother Acute myocardial infarction Social History Social History (Updated 05/03/24 @ 06:40 by Maryuri Srivastava DO) Social History: He lives in [place] with his of 63 years. 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 He quit smoking over 53 years ago. He only had a 15 pack per year smoking history. He denies any alcohol or illicit substance use. Code status: DNR/DNI (per patient request) He surrogate decision maker: Smoking packs per day: 0.5 Smoking cigarettes per day: 10.0 Years smoked: 15 Smoking pack-years: 7.50 Smoking status: Former smoker Tobacco type: cigarettes and cigars Second hand tobacco smoke exposure: No Smoking end date: [birth year]16/1950 Alcohol intake: never Substance use: never Substance use type: does not use Do You Feel Safe in your Home?: Yes Lack of Transportation: No Lack of Food: Never True Current Housing: I Have Housing Concerned About Future Housing: No Difficulty Paying Gas/Electric Bills: No Difficulty Paying for Meds: No Currently Unemployed: No Education: High School Diploma/GED Difficulty w/ Childcare or Family Care: No Living arrangements: with family Gender identity (if verbalized by the patient): Male Sexual Orientation (if Verbalized by the Patient): Straight or Heterosexual Spiritual care concerns: No Meds Home Medications and Allergies Home Medications ?Medication ?Instructions ?Recorded ?Confirmed ?Type albuterol sulfate 90 mcg/actuation 2 puff inhalation Q4H PRN 11/27/19 05/02/24 Rx aerosol inhaler (ProAir HFA) shortness of breath or wheezing #8.5 grams lancets (Lancets, Super Thin) #100 ea 01/30/20 05/02/24 Rx blood sugar diagnostic (Contour #100 ea 03/19/20 05/02/24 Rx Next Test Strips) multivit with minerals-iron 18 1 tablet PO DAILY 12/10/21 05/02/24 History mg-folic ac 400 mcg-vit K 25 mcg tablet (Adults Multivitamin) vitamin B complex (B 1 tablet PO DAILY 12/10/21 05/02/24 History Complex-Vitamin B12 tablet) atorvastatin 40 mg tablet 40 mg PO QPM 10/21/23 05/02/24 History metformin 1,000 mg tablet 1,000 mg PO BID #180 tabs 11/11/23 05/02/24 Rx clopidogrel 75 mg tablet 75 mg PO DAILY #90 tabs 11/29/23 05/02/24 Rx fluticasone 250 mcg-salmeterol 50 See Rx Instructions .Route 11/30/23 05/02/24 Rx mcg/dose blistr powdr for .COMPLEX #180 ea inhalation (Chip Long) finasteride 5 mg tablet See Rx Instructions .Route 01/02/24 05/02/24 Rx .COMPLEX #90 tabs spironolactone 25 mg tablet See Rx Instructions .Route 01/04/24 05/02/24 Rx .COMPLEX #45 tabs oxybutynin chloride 15 mg 15 mg PO HS #90 tabs 02/23/24 05/02/24 Rx tablet,extended release 24 hr glipizide 2.5 mg tablet, extended See Rx Instructions .Route 04/04/24 05/02/24 Rx release 24 hr .COMPLEX #90 tabs omega-3 fatty acids 1,000 mg PO DAILY 04/09/24 05/02/24 History doxycycline hyclate 100 mg tablet 100 mg PO BID #20 tabs 04/24/24 05/02/24 Rx apixaban 5 mg tablet (Eliquis) 5 mg PO Q12H 05/02/24 05/02/24 History diltiazem HCl 180 mg 180 mg PO Q24H 05/02/24 05/02/24 History capsule,extended release 24 hr furosemide 40 mg tablet 40 mg PO DAILY 05/02/24 05/02/24 History meclizine 12.5 mg tablet 12.5 mg PO QID PRN dizziness 05/02/24 05/02/24 History tamsulosin 0.4 mg capsule 0.8 mg PO HS 05/02/24 05/02/24 History Allergies Allergy/AdvReac Type Severity Reaction Status Date / Time Opioids - Morphine Analogues AdvReac Intermediate Nausea and Verified 05/02/24 17:53 Vomiting Vital Signs Vital Signs - 24 hr 05/02/24 10:24 05/02/24 10:29 05/02/24 12:07 Temperature 98.2 F Pulse Rate 97 97 105 H Respiratory Rate 16 17 Blood Pressure 149/85 H 137/78 Pulse Oximetry 99 97 Oxygen Delivery 05/02/24 13:29 05/02/24 16:02 05/02/24 18:01 Temperature Pulse Rate 100 72 Respiratory Rate 15 12 Blood Pressure 136/88 139/75 Pulse Oximetry 100 96 Oxygen Delivery Room Air 05/02/24 22:00 Temperature 97.9 F Pulse Rate 81 Respiratory Rate 18 Blood Pressure 148/77 H Pulse Oximetry 95 Oxygen Delivery Exam Narrative: Weight 103 kg BMI 31.7 Const: Other: No acute distress, obese, debilitated HENMT: Other: Head is normocephalic atraumatic, chest mucous membranes are tacky, no oral pharyngeal erythema, edentulous upper and lower jaw Eyes: Other: Pupils are equal and reactive with evidence of bilateral lens replacements Neck: Other: No JVD, large neck circumference, irregular thyroid Resp: Other: Clear to auscultation bilaterally, no increased work of breathing Cardio: Other: Irregularly irregular, rate controlled, 2+ bilateral radial and pedal pulses : Other: Continent of urine Skin: Other: Peeling skin from the feet, patient has small amount of dried blood to the tips of the S the 2nd through 4th toes bilaterally from recent nail trimming that his performed, he has some chronic venous stasis changes of the lower extremity Neuro: Other: He is alert orient x4, speech is clear, no facial asymmetry, moves all extremities equally, sensation intact Extrem: Other: 3/5 strength bilateral lower extremities, 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 bilateral Psych: Other: Appropriate mood and affect, pleasant and cooperative, judgment and insight intact H&P: Results Labs Labs: Short CBC 05/02/24 Range/Units 10:38 WBC 15.7 H (4.5-10.0) K/mm3 Hgb 17.1 (14.0-18.0) g/dL Hct 52.0 (42.0-52.0) % Plt Count 349 D (150-375) k/mm3 BMP 05/02/24 11:19 Sodium 135 L Potassium 4.5 Chloride 105 Carbon Dioxide 25 BUN 49 H D Creatinine 1.50 H Glucose 95 Calcium 9.1 Liver Function 05/02/24 Range/Units 11:19 Total Bilirubin 0.9 (0.2-1.3) mg/dL AST 24 (17-59) U/L ALT 22 (6-50) U/L Alkaline Phosphatase 36 L (38-126) U/L Albumin 3.3 L (3.5-5.1) g/dL Urine 05/02/24 Range/Units 11:04 Urine Color Yellow (Yellow) Urine Appearance Cloudy H (Clear) Urine pH 5.5 (5.0-9.0) Ur Specific [place] 1.018 (1.001-1.035) Urine Protein Negative (Negative) mg/dL Urine Glucose (UA) Negative (Negative) mg/dL Laboratory Tests 05/03/24 05:31 05/03/24 05:31 05/02/24 05/02/24 05/02/24 10:38 11:04 11:19 WBC 15.7 H RBC 5.53 Hgb 17.1 Hct 52.0 MCV 94.0 MCH 30.9 MCHC 32.9 RDW 14.9 H Plt Count 349 D MPV 9.5 Immature Gran % (Auto) 3.1 H Neut % (Auto) 68.1 Lymph % (Auto) 22.4 [place] % (Auto) 5.3 Eos % (Auto) 0.6 Baso % (Auto) 0.5 Lymph # (Auto) 3.52 H [place] # (Auto) 0.8 H Eos # (Auto) 0.1 Baso # (Auto) 0.1 Abs Immat Gran (auto) 0.49 H Absolute Neuts (auto) 10.7 H Absolute Nucleated RBC 0.000 Nucleated RBC % 0.0 Sodium 135 L Potassium 4.5 Chloride 105 Carbon Dioxide 25 Anion Gap 5 BUN 49 H D Creatinine 1.50 H Estim Creat Clear Calc 42 Estimated GFR 45 L Glucose 95 POC Capillary Glucose Calcium 9.1 Total Bilirubin 0.9 AST 24 ALT 22 Alkaline Phosphatase 36 L Total Protein 6.0 L Albumin 3.3 L TSH (Reflex) Urine Color Yellow Urine Appearance Cloudy H Urine pH 5.5 Ur Specific [place] 1.018 Urine Protein Negative Urine Glucose (UA) Negative Urine Ketones Trace H Ur Blood (Man) Negative Urine Nitrate Negative Urine Bilirubin Negative Urine Urobilinogen 0.2 Leukocyte Esterase Rfl Negative Urine RBC 0-2 Urine WBC 0-5 Ur Squamous Epith Cells None seen Urine Bacteria None seen Urine Casts 0-2 Influenza A (RT-PCR) Negative Influenza B (RT-PCR) Negative RSV (RT-PCR) Negative SARS-CoV-2 RNA (RT-PCR) Negative 05/02/24 05/02/24 05/03/24 17:47 20:03 05:31 WBC 12.1 H RBC 5.02 Hgb 15.6 Hct 47.9 MCV 95.4 MCH 31.1 MCHC 32.6 RDW 14.8 H Plt Count 272 MPV 9.3 Immature Gran % (Auto) Neut % (Auto) Lymph % (Auto) [place] % (Auto) Eos % (Auto) Baso % (Auto) Lymph # (Auto) [place] # (Auto) Eos # (Auto) Baso # (Auto) Abs Immat Gran (auto) Absolute Neuts (auto) Absolute Nucleated RBC Nucleated RBC % Sodium 135 L Potassium 4.4 Chloride 108 H Carbon Dioxide 26 Anion Gap 1 L BUN 40 H Creatinine 1.40 H Estim Creat Clear Calc 45 Estimated GFR 49 L Glucose 103 POC Capillary Glucose 149 H 144 H Calcium 8.8 Total Bilirubin AST ALT Alkaline Phosphatase Total Protein Albumin TSH (Reflex) Pending Urine Color Urine Appearance Urine pH Ur Specific [place] Urine Protein Urine Glucose (UA) Urine Ketones Ur Blood (Man) Urine Nitrate Urine Bilirubin Urine Urobilinogen Leukocyte Esterase Rfl Urine RBC Urine WBC Ur Squamous Epith Cells Urine Bacteria Urine Casts Influenza A (RT-PCR) Influenza B (RT-PCR) RSV (RT-PCR) SARS-CoV-2 RNA (RT-PCR) Impressions Chest X-Ray 05/02/24 11:01 IMPRESSION: Bibasilar opacification suggestive of atelectasis versus pneumonia. Head CT 05/02/24 12:28 Impression: No acute abnormality. 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 Atrophy and chronic white matter changes, as above. Sinus disease, as above. Lumbar Spine CT 05/02/24 13:39 IMPRESSION: No acute osseous abnormality. Multilevel degenerative disc disease with variable degrees of intervertebral foraminal narrowing. EKG: Measurements Intervals [place] Rate: 91 P: 0 IL: 0 QRS: -80 QRSD: 102 T: 40 QT: 341 QTc: 421 Interpretive Statements ATRIAL FIBRILLATION LEFT ANTERIOR FASCICULAR BLOCK [QRS AXIS <= -45, QR IN I, RS IN II] No previous ECG available for comparison She she All imaging and EKGs personally reviewed and interpreted. And unless stated otherwise agree with radiologic and cardiology interpretation. Assessment and Plan Assessment and plan (1) Frequent falls: Code(s): R29.6 - Repeated falls Status: Acute (2) Lower extremity weakness: Qualifiers: Laterality: bilateral Qualified Code(s): R29.898 - Other symptoms and signs involving the musculoskeletal system Code(s): R29.898 - Other symptoms and signs involving the musculoskeletal system Status: Acute (3) Atrial fibrillation: Qualifiers: Atrial fibrillation type: unspecified Qualified Code(s): I48.91 - Unspecified atrial fibrillation Code(s): I48.91 - Unspecified atrial fibrillation Status: Acute (4) Essential hypertension: Code(s): I10 - Essential (primary) hypertension Status: Acute (5) Type 2 diabetes mellitus with stage 3 chronic kidney disease: Qualifiers: Diabetes mellitus long term care administrator insulin use: without retirement use Chronic kidney disease stage 3 subtype: stage 3a (GFR 45-59) Qualified Code(s): E11.22 - Type 2 diabetes mellitus with diabetic chronic kidney disease; N18.31 - Chronic kidney disease, stage 3a Code(s): E11.22 - Type 2 diabetes mellitus with diabetic chronic kidney disease; N18.3 - Chronic kidney disease, stage 3 (moderate) Status: Acute Plan He patient has generalized weakness with multiple falls. He is likely frail at baseline and unstable on his feet but this is been worsened which is recent pneumonia. The patient reports that his speech is respiratory status has improved he but he has been having increased weakness and has not been able to get out of his recliner overnight after falling yesterday. PT OT eval has been requested. Will continue doxycycline to complete the patient 10 day course of antibiotics which should be another 2 days of treatment Patient has multiple skin tears that have been bandaged. There is adequate hemostasis. Will resume patient's home Plavix and Eliquis Patient does have chronic AFib rate controlled. Will continue home Eliquis, Cardizem, Lasix and spironolactone. Patient does have CHF but of appears relatively euvolemic. Will monitor I&O's Patient does have type 2 diabetes mellitus. His home oral hypoglycemics are on hold. Will place patient on low-dose sliding scale insulin with Accu-Cheks a.c. and HS with hypoglycemia protocol as needed. Patient has been admitted as observation status. Quality VTE Prophylaxis VTE prophylaxis: pharmacologic ordered (Continue home Eliquis) Hospitalist [facility] Advance Care Plan I have confirmed that the patient's Advanced Care Plan is present, code status is documented, or surrogate decision maker is listed in patient medical record.: Yes Medication Reconciliation I have utilized all available resources to obtain, update and review the patients current medications (includes all prescriptions, OTC, herbals, cannabis, and nutritional supplements).: Yes
[2024-05-03 06:13] LABS: Anion Gap 1 mmol/L (4-12); Blood Urea Nitrogen 40 mg/dL (9-20); Calcium 8.8 mg/dL (8.4-10.2); Carbon Dioxide 26 mmol/L (22-30); Chloride 108 mmol/L (98-107); Estimated CRCL calculation 45 ml/min; Estimated Glomerular Filt Rate 49; Glucose 103 mg/dL (65-110); Potassium 4.4 mmol/L (3.4-5.0); Sodium 135 mmol/L (137-145)
[2024-05-03] MEDS: FUROSEMIDE 40 MG TABLET PO (08:01)
[2024-05-03] MEDS: DOXYCYCLINE HYCLATE 100 MG TABLET PO ×2 (08:02→17:07)
[2024-05-03] MEDS: SPIRONOLACTONE 12.5 MG TABLET PO (08:02)
[2024-05-03] MEDS: OMEGA 3 POLYUNSAT FATTY ACIDS 1 GM CAP PO (08:02)
[2024-05-03] MEDS: FINASTERIDE 5 MG TABLET PO (08:02)
[2024-05-03] MEDS: CLOPIDOGREL BISULFATE 75 MG TABLET PO (08:02)
[2024-05-03] MEDS: dilTIAZem HCL CD 180 MG CAP.24HR PO (08:02)
[2024-05-03] MEDS: APIXABAN 5 MG TABLET PO ×2 (08:02→21:25)
[2024-05-03] MEDS: FLUTICASONE/SALMETEROL 115-21 MCG INHALER 1 PUFF 2 PUFF INHALATION ×2 (08:11→19:59)
[2024-05-03 08:13] VITALS: O2SAT 95
[2024-05-03 08:24] LABS: Glucose Point of Care 103 mg/dl (65-105)
[2024-05-03] MEDS: ACETAMINOPHEN 325 MG TABLET 650 MG PO (10:53)
--- NOTE | 2024-05-03 11:11 | P.PNIM_ITS ---
Progress Note: A&P Assessment and Plan (1) Frequent falls: Code(s): R29.6 - Repeated falls Status: Acute Assessment and Plan: * Multiple falls as of recent. * PT and OT consult for possible rehab placement. * Fall precautions * Etiology of weakness likely due to recent PNA. (2) Lower extremity weakness: Qualifiers: Laterality: bilateral Qualified Code(s): R29.898 - Other symptoms and signs involving the musculoskeletal system Code(s): R29.898 - Other symptoms and signs involving the musculoskeletal system Status: Acute Assessment and Plan: * See #1 (3) Knee pain: Code(s): M25.569 - Pain in unspecified knee Status: Acute Assessment and Plan: * Right knee is painful. * Xray, 3 view ordered. Do not suspect any acute fractures. * No obvious effusion, ecchymosis. (4) Atrial fibrillation: Qualifiers: Atrial fibrillation type: unspecified Qualified Code(s): I48.91 - Un specified atrial fibrillation Code(s): I48.91 - Unspecified atrial fibrillation Status: Chronic Assessment and Plan: * Continue Eliquis for chronic anticoagulation. (5) Essential hypertension: Code(s): I10 - Essential (primary) hypertension Status: Chronic Assessment and Plan: * Continue Cardizem and Spironolactone. * Running 130s-140s/50s-80s. * Continue to monitor and trend. 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 * Continue with SSI * Hypoglycemic protocol * Glucose checks AC and HS * Diabetic diet w/supplements. Subjective Date/time seen: 05/03/24 0900 Interval history: This very pleasant 83 year old male pt was examined at the bedside after being admitted for generalized weakness. He has recently had PNA over the course of the past two weeks and tomorrow will be his last dose of Doxycycline for treatment. He was admitted for evaluation with PT and OT and in doing so today he was very weak and had a considerable amount of pain in his right knee. An xray is ordered to assess. No other acute complaints. Review of Systems Review of Systems: All systems reviewed & are unremarkable except as noted in HPI and below Exam Narrative: CONSTITUTIONAL: Pleasant, elderly male laying supine in bed at this time in no acute distress. HENMT: head is atraumatic and normocephalic. MMM, no JVD NECK: Noted FROM in a supple manner. RESPIRATORY: Lungs are CTAB in all hernandez. CARDIAC: Irregular rhythm of a-fib which is a normal variant for the pt. No m,r,g,h GI: Soft, NT, BS+x4, no rebound or guarding. SKIN: Intact without lesion, ecchymosis NEURO: No focal deficits, Generalized weakness present. EXTREMITIES: Right knee pain without edema, effusion, ecchymosis PSYCH: A&Ox4 Objective Data Vital Signs Vital Signs: Vital Signs - 24 hr 05/02/24 12:07 05/02/24 13:29 05/02/24 16:02 Temperature Pulse Rate 105 H 100 72 Respiratory Rate 17 15 12 Blood Pressure 137/78 136/88 139/75 Pulse Oximetry 97 100 96 Oxygen Delivery Fraction of Inspired Oxygen 05/02/24 18:01 05/02/24 22:00 05/03/24 06:00 Temperature 97.9 F 98.7 F Pulse Rate 81 99 Respiratory Rate 18 18 Blood Pressure 148/77 H 144/82 H Pulse Oximetry 95 95 Oxygen Delivery Room Air Fraction of Inspired Oxygen 05/03/24 08:09 05/03/24 08:13 Temperature Pulse Rate Respiratory Rate Blood Pressure Pulse Oximetry 95 Oxygen Delivery Room Air [place] Fraction of Inspired Oxygen 21 Intake/Output Intake/Output: Intake & Output 04/30/24 05/01/24 05/02/24 05/03/24 23:59 23:59 23:59 23:59 Intake Total 240 240 Output Total 650 Balance 240 -410 Meds/Results Medications: Active Medications Generic Name Dose Route Start Last Admin Trade Name Freq PRN Reason Stop Dose Admin Acetaminophen 650 mg 05/02/24 15:39 05/03/24 10:53 Acetaminophen 325 Mg Tablet PO 650 mg Q4H PRN Administration Mild Pain (1-3) or Fever Albuterol/Ipratropium 3 ml 05/03/24 09:35 Ipratropium 0.5 Mg/Albuterol Sulfate 2.5 Mg Ampul.Neb 3 Ml INHALATION Q6HRT PRN Wheezing Apixaban 5 mg 05/03/24 09:00 05/03/24 08:02 Apixaban 5 Mg Tablet PO 5 mg Q12HR MELISSA Administration Atorvastatin Calcium 40 mg 05/02/24 21:05 05/03/24 00:01 Atorvastatin 40 Mg Tablet PO 40 mg QPM MELISSA Administration Clopidogrel Bisulfate 75 mg 05/03/24 09:00 05/03/24 08:02 Clopidogrel Bisulfate 75 Mg Tablet PO 75 mg DAILY MELISSA Administration Diltiazem HCl 180 mg 05/03/24 09:00 05/03/24 08:02 Diltiazem Hcl Cd 180 Mg Cap.24hr PO 180 mg DAILY MELISSA Administration Doxycycline Hyclate 100 mg 05/03/24 09:00 05/03/24 08:02 Doxycycline Hyclate 100 Mg Tablet PO 05/04/24 09:01 100 mg BID MELISSA Administration Finasteride 5 mg 05/03/24 09:00 05/03/24 08:02 Finasteride 5 Mg Tablet PO 5 mg DAILY MELISSA Administration Fish Oil 1 gm 05/03/24 09:00 05/03/24 08:02 [place] 3 Polyunsat Fatty Acids 1 Gm Cap PO 1 gm DAILY MELISSA Administration Furosemide 40 mg 05/03/24 09:00 05/03/24 08:01 Furosemide 40 Mg Tablet PO 40 mg DAILY MELISSA Administration Insulin Aspart 3 - 6 units 05/02/24 17:00 05/03/24 08:14 Insulin Aspart (*Bkc) 100 Units/Ml SUB-Q Not Given TIDWM [facility] Protocol Meclizine HCl 12.5 mg 05/02/24 20:54 Meclizine Hcl 12.5 Mg Tablet PO QID PRN dizziness Multivitamins/Minerals 1 tab 05/03/24 12:00 Multivitamins /C Lutein (Centrum Silver) Tablet *Bkc PO DAILY@1200 [facility] Ondansetron HCl 4 mg 05/02/24 15:39 Ondansetron Inj 4 Mg/2 Ml Vial IV PUSH Q4H PRN Nausea Oxybutynin Chloride 15 mg 05/02/24 21:00 05/03/24 00:01 Oxybutynin Chloride Xl 5 Mg Tab.Er.24 PO 15 mg HS MELISSA Administration Fluticasone/Salmeterol 2 puff 05/02/24 21:05 05/03/24 08:11 Fluticasone/Salmeterol 115-21 Mcg Inhaler 1 Puff INHALATION 2 puff Q12HRT MELISSA Administration Spironolactone 12.5 mg 05/03/24 09:00 05/03/24 08:02 Spironolactone 12.5 Mg Tablet PO 12.5 mg DAILY MELISSA Administration Tamsulosin HCl 0.8 mg 05/02/24 21:00 05/03/24 00:00 Tamsulosin Hcl 0.4 Mg Capsule PO 0.8 mg HS MELISSA Administration Radiology Results: ITS Impressions Chest X-Ray 05/02/24 11:01 IMPRESSION: Bibasilar opacification suggestive of atelectasis versus pneumonia. Head CT 05/02/24 12:28 Impression: No acute abnormality. 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 Atrophy and chronic white matter changes, as above. Sinus disease, as above. Lumbar Spine CT 05/02/24 13:39 IMPRESSION: No acute osseous abnormality. Multilevel degenerative disc disease with variable degrees of intervertebral foraminal narrowing. Labs Labs: Laboratory Results - last 24 hr 05/02/24 05/02/24 05/02/24 10:38 11:04 11:19 WBC RBC Hgb Hct MCV MCH MCHC RDW Plt Count MPV Sodium 135 L Potassium 4.5 Chloride 105 Carbon Dioxide 25 Anion Gap 5 BUN 49 H D Creatinine 1.50 H Estim Creat Clear Calc 42 Estimated GFR 45 L Glucose 95 POC Capillary Glucose Calcium 9.1 Total Bilirubin 0.9 AST 24 ALT 22 Alkaline Phosphatase 36 L Total Protein 6.0 L Albumin 3.3 L TSH (Reflex) Urine Color Yellow Urine Appearance Cloudy H Urine pH 5.5 Ur Specific [place] 1.018 Urine Protein Negative Urine Glucose (UA) Negative Urine Ketones Trace H Ur Blood (Man) Negative Urine Nitrate Negative Urine Bilirubin Negative Urine Urobilinogen 0.2 Leukocyte Esterase Rfl Negative Urine RBC 0-2 Urine WBC 0-5 Ur Squamous Epith Cells None seen Urine Bacteria None seen Urine Casts 0-2 Influenza A (RT-PCR) Negative Influenza B (RT-PCR) Negative RSV (RT-PCR) Negative SARS-CoV-2 RNA (RT-PCR) Negative 05/02/24 05/02/24 05/03/24 17:47 20:03 05:31 WBC 12.1 H RBC 5.02 Hgb 15.6 Hct 47.9 MCV 95.4 MCH 31.1 MCHC 32.6 RDW 14.8 H Plt Count 272 MPV 9.3 Sodium 135 L Potassium 4.4 Chloride 108 H Carbon Dioxide 26 Anion Gap 1 L BUN 40 H Creatinine 1.40 H Estim Creat Clear Calc 45 Estimated GFR 49 L Glucose 103 POC Capillary Glucose 149 H 144 H Calcium 8.8 Total Bilirubin AST ALT Alkaline Phosphatase Total Protein Albumin TSH (Reflex) 2.120 Urine Color Urine Appearance Urine pH Ur Specific [place] Urine Protein Urine Glucose (UA) Urine Ketones Ur Blood (Man) Urine Nitrate Urine Bilirubin Urine Urobilinogen Leukocyte Esterase Rfl Urine RBC Urine WBC Ur Squamous Epith Cells Urine Bacteria Urine Casts Influenza A (RT-PCR) Influenza B (RT-PCR) RSV (RT-PCR) SARS-CoV-2 RNA (RT-PCR) 05/03/24 08:13 WBC RBC Hgb Hct MCV MCH MCHC RDW Plt Count MPV Sodium Potassium Chloride Carbon Dioxide Anion Gap BUN Creatinine Estim Creat Clear Calc Estimated GFR Glucose POC Capillary Glucose 103 Calcium Total Bilirubin AST ALT Alkaline Phosphatase Total Protein Albumin TSH (Reflex) Urine Color Urine Appearance Urine pH Ur Specific [place] Urine Protein Urine Glucose (UA) Urine Ketones Ur Blood (Man) Urine Nitrate Urine Bilirubin Urine Urobilinogen Leukocyte Esterase Rfl Urine RBC Urine WBC Ur Squamous Epith Cells Urine Bacteria Urine Casts Influenza A (RT-PCR) Influenza B (RT-PCR) RSV (RT-PCR) SARS-CoV-2 RNA (RT-PCR) Quality VTE Prophylaxis VTE prophylaxis: pharmacologic ordered
[2024-05-03] MEDS: MULTIVITAMINS /C LUTEIN (CENTRUM SILVER) TABLET *BKC 1 TAB PO (11:50)
[2024-05-03 11:51] LABS: Glucose Point of Care 144 mg/dl (65-105)
[2024-05-03 14:00] VITALS: BP 121/70; PULSE 91; RESP 18; TEMP 37.3; O2SAT 98
[2024-05-03 17:15] LABS: Glucose Point of Care 201 mg/dl (65-105)
[2024-05-03] MEDS: INSULIN ASPART (*BKC) 100 UNITS/ML SUB-Q (17:18)
[2024-05-03 20:00] VITALS: PULSE 88; RESP 18; O2SAT 96
[2024-05-03 20:16] LABS: Glucose Point of Care 139 mg/dl (65-105)
[2024-05-03] MEDS: TAMSULOSIN HCL 0.4 MG CAPSULE 0.8 MG PO ×2 (21:24)
[2024-05-03 22:00] VITALS: BP 129/72; PULSE 89; RESP 18; TEMP 37; O2SAT 95
[2024-05-04 06:00] VITALS: BP 123/67; PULSE 68; RESP 18; TEMP 36.6; O2SAT 96
[2024-05-04 06:05] LABS: Basophils Percent Auto 0.4 % (0.2-1.2); Eosinophils Absolute Auto 0.1 K/mm3 (0-0.3); Hematocrit 45.4 % (42.0-52.0); Hemoglobin 14.8 g/dL (14.0-18.0); Immature Granulocyte Absolute 0.15 K/mm3 (0.00-0.031); Immature Granulocyte Percent A 1.3 % (0-0.5); Lymphocytes Absolute Auto 2.66 K/mm3 (0.9-3.2); Lymphocytes Percent Auto 23.4 % (18.3-44.2); Mean Corpuscular HGB Conc 32.6 g/dl (32-36); Mean Corpuscular Hemoglobin 30.6 pg (26-34); Mean Corpuscular Volume 93.8 fl (80-100); Mean Platelet Volume 9.5 fl (7.4-10.4); Monocytes Percent Auto 8.5 % (2.6-8.5); Neutrophils Absolute Auto 7.4 K/mm3 (1.3-6.7); Neutrophils Percent Auto 65.4 % (45.5-73.1); Platelet Count Result 244 k/mm3 (150-375); Red Blood Count 4.84 M/mm3 (4.6-6.20); Red Cell Distribution Width 14.9 % (11.5-14.5); White Blood Count 11.4 K/mm3 (4.5-10.0)
[2024-05-04 06:21] LABS: Alanine Aminotransferase 20 U/L (6-50); Albumin Level 2.9 g/dL (3.5-5.1); Alkaline Phosphatase 34 U/L (38-126); Anion Gap 4 mmol/L (4-12); Aspartate Amino Transferase 22 U/L (17-59); Bilirubin,Total 0.9 mg/dL (0.2-1.3); Blood Urea Nitrogen 31 mg/dL (9-20); Calcium 8.4 mg/dL (8.4-10.2); Carbon Dioxide 24 mmol/L (22-30); Chloride 107 mmol/L (98-107); Estimated CRCL calculation 48 ml/min; Estimated Glomerular Filt Rate 53; Glucose 127 mg/dL (65-110); Magnesium 2.2 mg/dL (1.6-2.3); Potassium 4.1 mmol/L (3.4-5.0); Sodium 135 mmol/L (137-145)
[2024-05-04] MEDS: FLUTICASONE/SALMETEROL 115-21 MCG INHALER 1 PUFF 2 PUFF INHALATION ×2 (07:51→20:12)
[2024-05-04 08:14] LABS: Glucose Point of Care 133 mg/dl (65-105)
[2024-05-04] MEDS: DOXYCYCLINE HYCLATE 100 MG TABLET PO (09:17)
[2024-05-04] MEDS: CLOPIDOGREL BISULFATE 75 MG TABLET PO (09:17)
[2024-05-04] MEDS: FUROSEMIDE 40 MG TABLET PO (09:17)
[2024-05-04] MEDS: APIXABAN 5 MG TABLET PO ×2 (09:17→20:45)
[2024-05-04] MEDS: OMEGA 3 POLYUNSAT FATTY ACIDS 1 GM CAP PO (09:17)
[2024-05-04] MEDS: dilTIAZem HCL CD 180 MG CAP.24HR PO (09:17)
[2024-05-04] MEDS: SPIRONOLACTONE 12.5 MG TABLET PO (09:18)
[2024-05-04] MEDS: FINASTERIDE 5 MG TABLET PO (09:18)
--- NOTE | 2024-05-04 11:16 | P.PNIM_ITS ---
Progress Note: A&P Assessment and Plan (1) Frequent falls: Code(s): R29.6 - Repeated falls Status: Acute Assessment and Plan: Multiple falls recently. He reports no dizziness, knees give out He is acutely tender to his right knee * PT and OT consult for possible rehab placement. * Fall precautions * Outpatient ortho follow up for injections or further imaging if pain not resolving (2) Lower extremity weakness: Qualifiers: Laterality: bilateral Qualified Code(s): R29.898 - Other symptoms and signs involving the musculoskeletal system Code(s): R29.898 - Other symptoms and signs involving the musculoskeletal system Status: Acute Assessment and Plan: * See #1 (3) Knee pain: Code(s): M25.569 - Pain in unspecified knee Status: Acute Assessment and Plan: * Right knee is painful * Xray, 3 view ordered. No acute fractures. Showed severe tricompartmental osteoarthritis * No obvious effusion, ecchymosis. * May benefit from steroid injections, can follow up with orthopedic surgery outpatient, though this will take coordination since he's on anticoagulation * Topical voltaren (4) Atrial fibrillation: Qualifiers: Atrial fibrillation type: unspecified Qualified Code(s): I48.91 - Unspecified atrial fibrillation Code(s): I48.91 - Unspecified atrial fibrillation Status: Chronic Assessment and Plan: * Continue Eliquis for chronic anticoagulation. (5) Essential hypertension: Code(s): I10 - Essential (primary) hypertension Status: Chronic Assessment and Plan: * Continue Cardizem and Spironolactone. * Running 130s-140s/50s-80s. * Continue to monitor and trend. 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: Qualifiers: Diabetes mellitus salvage determiner insulin use: without correction use Chronic kidney disease stage 3 subtype: stage 3a (GFR 45-59) Qualified Code(s): E11.22 - Type 2 diabetes mellitus with diabetic chronic kidney disease; N18.31 - Chronic kidney disease, stage 3a Code(s): E11.22 - Type 2 diabetes mellitus with diabetic chronic kidney disease; N18.3 - Chronic kidney disease, stage 3 (moderate) Status: Chronic Assessment and Plan: Home meds: Metformin, glipizide * Resume home metformin * Continue with SSI prn * Hypoglycemic protocol * Glucose checks AC and HS * Diabetic diet w/supplements. Time Spent With Patient Time: 59 minutes Subjective Date/time seen: 05/04/24 11:16 Interval history: This very pleasant 83 year old male pt was examined at the bedside after being admitted for generalized weakness. He has recently had PNA over the course of the past two weeks and tomorrow will be his last dose of Doxycycline for treatment. He was admitted for evaluation with PT and OT and in doing so today he was very weak and had a considerable amount of pain in his right knee. An xray is ordered to assess. No other acute complaints. Review of Systems Review of Systems: 12 systems were reviewed with pertinent positives and negatives per HPI. Except as documented in the HPI, all other systems were reviewed and are negative. All systems reviewed & are unremarkable except as noted in HPI and below Exam Narrative: CONSTITUTIONAL: Pleasant, elderly male laying supine in bed at this time in no acute distress. HENMT: head is atraumatic and normocephalic. MMM, no JVD NECK: Noted FROM in a supple manner. RESPIRATORY: Lungs are CTAB in all hernandez. CARDIAC: Irregular rhythm of a-fib which is a normal variant for the pt. No m,r,g,h GI: Soft, NT, BS+x4, no rebound or guarding. SKIN: Intact without lesion, ecchymosis NEURO: No focal deficits, Generalized weakness present. EXTREMITIES: Right knee pain without edema, effusion, ecchymosis PSYCH: A&Ox4 Objective Data Vital Signs Vital Signs: Vital Signs - 24 hr 05/03/24 14:00 05/03/24 15:29 05/03/24 20:00 Temperature 99.1 F Pulse Rate 91 88 Respiratory Rate 18 Blood Pressure 121/70 Pulse Oximetry 98 96 Oxygen Delivery Room Air Room Air 05/03/24 20:00 05/03/24 22:00 05/04/24 06:00 Temperature 98.6 F 97.9 F Pulse Rate 88 89 68 Respiratory Rate 18 18 18 Blood Pressure 129/72 123/67 Pulse Oximetry 95 96 Oxygen Delivery 05/04/24 09:23 Temperature Pulse Rate Respiratory Rate Blood Pressure Pulse Oximetry Oxygen Delivery Room Air Intake/Output Intake/Output: Intake & Output 05/01/24 05/02/24 05/03/24 05/04/24 23:59 23:59 23:59 23:59 Intake Total 240 1270 400 Output Total 650 750 Balance 240 620 -350 Meds/Results Medications: Active Medications Generic Name Dose Route Start Last Admin Trade Name Freq PRN Reason Stop Dose Admin Acetaminophen 650 mg 05/02/24 15:39 05/03/24 10:53 Acetaminophen 325 Mg Tablet PO 650 mg Q4H PRN Administration Mild Pain (1-3) or Fever Albuterol/Ipratropium 3 ml 05/03/24 09:35 Ipratropium 0.5 Mg/Albuterol Sulfate 2.5 Mg Ampul.Neb 3 Ml INHALATION Q6HRT PRN Wheezing Apixaban 5 mg 05/03/24 09:00 05/04/24 09:17 Apixaban 5 Mg Tablet PO 5 mg Q12HR MELISSA Administration Atorvastatin Calcium 40 mg 05/02/24 21:05 05/03/24 17:07 Atorvastatin 40 Mg Tablet PO 40 mg QPM MELISSA Administration Clopidogrel Bisulfate 75 mg 05/03/24 09:00 05/04/24 09:17 Clopidogrel Bisulfate 75 Mg Tablet PO 75 mg DAILY MELISSA Administration Diltiazem HCl 180 mg 05/03/24 09:00 05/04/24 09:17 Diltiazem Hcl Cd 180 Mg Cap.24hr PO 180 mg DAILY MELISSA Administration Finasteride 5 mg 05/03/24 09:00 05/04/24 09:18 Finasteride 5 Mg Tablet PO 5 mg DAILY MELISSA Administration Fish Oil 1 gm 05/03/24 09:00 05/04/24 09:17 [place] 3 Polyunsat Fatty Acids 1 Gm Cap PO 1 gm DAILY MELISSA Administration Furosemide 40 mg 05/03/24 09:00 05/04/24 09:17 Furosemide 40 Mg Tablet PO 40 mg DAILY MELISSA Administration Insulin Aspart 3 - 6 units 05/02/24 17:00 05/04/24 09:16 Insulin Aspart (*Bkc) 100 Units/Ml SUB-Q Not Given TIDWM [facility] Protocol Meclizine HCl 12.5 mg 05/02/24 20:54 Meclizine Hcl 12.5 Mg Tablet PO QID PRN dizziness Multivitamins/Minerals 1 tab 05/03/24 12:00 05/03/24 11:50 Multivitamins /C Lutein (Centrum Silver) Tablet *Bkc PO 1 tab DAILY@1200 MELISSA Administration Ondansetron HCl 4 mg 05/02/24 15:39 Ondansetron Inj 4 Mg/2 Ml Vial IV PUSH Q4H PRN Nausea Oxybutynin Chloride 15 mg 05/02/24 21:00 05/03/24 21:25 Oxybutynin Chloride Xl 5 Mg Tab.Er.24 PO 15 mg HS MELISSA Administration Fluticasone/Salmeterol 2 puff 05/02/24 21:05 05/04/24 07:51 Fluticasone/Salmeterol 115-21 Mcg Inhaler 1 Puff INHALATION 2 puff Q12HRT MELISSA Administration Spironolactone 12.5 mg 05/03/24 09:00 05/04/24 09:18 Spironolactone 12.5 Mg Tablet PO 12.5 mg DAILY MELISSA Administration Tamsulosin HCl 0.8 mg 05/02/24 21:00 05/03/24 21:24 Tamsulosin Hcl 0.4 Mg Capsule PO 0.8 mg HS MELISSA Administration Radiology Results: ITS Impressions Chest X-Ray 05/02/24 11:01 IMPRESSION: Bibasilar opacification suggestive of atelectasis versus pneumonia. Head CT 05/02/24 12:28 Impression: No acute abnormality. 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 Atrophy and chronic white matter changes, as above. Sinus disease, as above. Lumbar Spine CT 05/02/24 13:39 IMPRESSION: No acute osseous abnormality. Multilevel degenerative disc disease with variable degrees of intervertebral foraminal narrowing. Knee X-Ray 05/03/24 11:29 Impression: 1: Severe osteoarthritis of the right knee. Labs Labs: Laboratory Results - last 24 hr 05/03/24 05/03/24 05/03/24 11:42 17:08 20:14 WBC RBC Hgb Hct MCV MCH MCHC RDW Plt Count MPV Immature Gran % (Auto) Neut % (Auto) Lymph % (Auto) [place] % (Auto) Eos % (Auto) Baso % (Auto) Lymph # (Auto) [place] # (Auto) Eos # (Auto) Baso # (Auto) Abs Immat Gran (auto) Absolute Neuts (auto) Absolute Nucleated RBC Nucleated RBC % Sodium Potassium Chloride Carbon Dioxide Anion Gap BUN Creatinine Estim Creat Clear Calc Estimated GFR Glucose POC Capillary Glucose 144 H 201 H 139 H Calcium Magnesium Total Bilirubin AST ALT Alkaline Phosphatase Total Protein Albumin 05/04/24 05/04/24 05:25 07:58 WBC 11.4 H RBC 4.84 Hgb 14.8 Hct 45.4 MCV 93.8 MCH 30.6 MCHC 32.6 RDW 14.9 H Plt Count 244 MPV 9.5 Immature Gran % (Auto) 1.3 H Neut % (Auto) 65.4 Lymph % (Auto) 23.4 [place] % (Auto) 8.5 Eos % (Auto) 1.0 Baso % (Auto) 0.4 Lymph # (Auto) 2.66 [place] # (Auto) 1.0 H Eos # (Auto) 0.1 Baso # (Auto) 0.0 Abs Immat Gran (auto) 0.15 H Absolute Neuts (auto) 7.4 H Absolute Nucleated RBC 0.000 Nucleated RBC % 0.0 Sodium 135 L Potassium 4.1 Chloride 107 Carbon Dioxide 24 Anion Gap 4 BUN 31 H Creatinine 1.30 Estim Creat Clear Calc 48 Estimated GFR 53 L Glucose 127 H POC Capillary Glucose 133 H Calcium 8.4 Magnesium 2.2 Total Bilirubin 0.9 AST 22 ALT 20 Alkaline Phosphatase 34 L Total Protein 5.0 L Albumin 2.9 L Quality VTE Prophylaxis VTE prophylaxis: pharmacologic ordered Hospitalist MIPS Advance Care Plan I have confirmed that the patient's Advanced Care Plan is present, code status is documented, or surrogate decision maker is listed in patient medical record.: Yes Medication Reconciliation I have utilized all available resources to obtain, update and review the patients current medications (includes all prescriptions, OTC, herbals, cannabis, and nutritional supplements).: Yes
[2024-05-04] MEDS: metFORMIN HCL 500 MG TABLET 1000 MG PO ×2 (12:01→16:51)
[2024-05-04] MEDS: MULTIVITAMINS /C LUTEIN (CENTRUM SILVER) TABLET *BKC 1 TAB PO (12:02)
[2024-05-04 12:13] LABS: Glucose Point of Care 161 mg/dl (65-105)
[2024-05-04 14:15] VITALS: BP 151/62; PULSE 70; RESP 17; TEMP 36.1; O2SAT 98
[2024-05-04] MEDS: DICLOFENAC SODIUM 1% 100 GM GEL (*BKC) 1 APPLIC TOPICAL ×3 (14:24→20:45)
[2024-05-04 17:15] LABS: Glucose Point of Care 147 mg/dl (65-105)
[2024-05-04] MEDS: ATORVASTATIN 40 MG TABLET PO (18:38)
[2024-05-04 20:00] VITALS: PULSE 81; RESP 18; O2SAT 97
[2024-05-04 20:12] VITALS: PULSE 77; RESP 17
[2024-05-04 20:13] VITALS: PULSE 77; O2SAT 97
[2024-05-04] MEDS: TAMSULOSIN HCL 0.4 MG CAPSULE 0.8 MG PO (20:45)
[2024-05-04] MEDS: oxyBUTYnin CHLORIDE XL 5 MG TAB.ER.24 15 MG PO (20:45)
[2024-05-04 21:02] LABS: Glucose Point of Care 225 mg/dl (65-105)
[2024-05-04 21:19] VITALS: BP 122/64; PULSE 81; RESP 18; TEMP 36.2; O2SAT 97
[2024-05-05 06:00] VITALS: BP 126/67; PULSE 80; RESP 16; TEMP 36.4; O2SAT 96
[2024-05-05] MEDS: FLUTICASONE/SALMETEROL 115-21 MCG INHALER 1 PUFF 2 PUFF INHALATION ×2 (08:01→19:49)
[2024-05-05 08:03] VITALS: PULSE 69; RESP 20; O2SAT 94
[2024-05-05] MEDS: DICLOFENAC SODIUM 1% 100 GM GEL (*BKC) 1 APPLIC TOPICAL ×4 (08:06→20:26)
[2024-05-05] MEDS: dilTIAZem HCL CD 180 MG CAP.24HR PO (08:06)
[2024-05-05] MEDS: metFORMIN HCL 500 MG TABLET 1000 MG PO ×2 (08:06→17:04)
[2024-05-05] MEDS: OMEGA 3 POLYUNSAT FATTY ACIDS 1 GM CAP PO (08:06)
[2024-05-05] MEDS: CLOPIDOGREL BISULFATE 75 MG TABLET PO (08:06)
[2024-05-05] MEDS: APIXABAN 5 MG TABLET PO ×2 (08:06→20:26)
[2024-05-05] MEDS: FUROSEMIDE 40 MG TABLET PO (08:06)
[2024-05-05] MEDS: SPIRONOLACTONE 12.5 MG TABLET PO (08:06)
[2024-05-05] MEDS: FINASTERIDE 5 MG TABLET PO (08:06)
[2024-05-05 08:20] LABS: Glucose Point of Care 129 mg/dl (65-105)
[2024-05-05] MEDS: MULTIVITAMINS /C LUTEIN (CENTRUM SILVER) TABLET *BKC 1 TAB PO (11:16)
--- NOTE | 2024-05-05 12:21 | PM.IMPN ---
Progress Note: A&P Assessment and Plan (1) Frequent falls: Code(s): R29.6 - Repeated falls Status: Acute Assessment and Plan: Multiple falls recently. He reports no dizziness, knees give out He is acutely tender to his right knee PT and OT consult for possible rehab placement. Fall precautions Outpatient ortho follow up for injections or further imaging if pain not resolving (2) Lower extremity weakness: Qualifiers: Laterality: bilateral Qualified Code(s): R29.898 - Other symptoms and signs involving the musculoskeletal system Code(s): R29.898 - Other symptoms and signs involving the musculoskeletal system Status: Acute Assessment and Plan: See #1 (3) Knee pain: Code(s): M25.569 - Pain in unspecified knee Status: Acute Assessment and Plan: Right knee is painful, unable to put pressure on his foot without knee pain Xray, 3 view ordered. No acute fractures. Showed severe tricompartmental osteoarthritis No obvious effusion, ecchymosis. May benefit from steroid injections, can follow up with orthopedic surgery outpatient, though this will take coordination since he's on anticoagulation Topical voltaren--feels it has been helpful (4) Atrial fibrillation: Qualifiers: Atrial fibrillation type: unspecified Qualified Code(s): I48.91 - Unspecified atrial fibrillation Code(s): I48.91 - Unspecified atrial fibrillation Status: Chronic Assessment and Plan: Continue Eliquis for chronic anticoagulation. (5) Essential hypertension: Code(s): I10 - Essential (primary) hypertension Status: Chronic Assessment and Plan: Continue Cardizem and Spironolactone. Blood pressure controlled, 122-126/64-67 Continue to monitor and trend. 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: Qualifiers: Chronic kidney disease stage 3 subtype: stage 3a (GFR 45-59) Diabetes mellitus terminal system operator insulin use: without custodial use Qualified Code(s): E11.22 - Type 2 diabetes mellitus with diabetic chronic kidney disease; N18.31 - Chronic kidney disease, stage 3a Code(s): E11.22 - Type 2 diabetes mellitus with diabetic chronic kidney disease; N18.3 - Chronic kidney disease, stage 3 (moderate) Status: Chronic Assessment and Plan: Home meds: Metformin, glipizide Resume home metformin Continue with SSI prn Hypoglycemic protocol Glucose checks AC and HS Diabetic diet w/supplements. (7) Back pain: Code(s): M54.9 - Dorsalgia, unspecified Status: Acute Assessment and Plan: Chronic back pain. He reports pain chronic, planning outpatient surgery --Trial of gabapentin 200 TID --Topical lidocaine Time Spent With Patient Time: 48 minutes Subjective Date/time seen: 05/05/24 12:21 Interval history: Pending rehab placement Review of Systems Review of Systems: 12 systems were reviewed with pertinent positives and negatives per HPI. Except as documented in the HPI, all other systems were reviewed and are negative. All systems reviewed & are unremarkable except as noted in HPI and below Exam Narrative: CONSTITUTIONAL: Pleasant, elderly male laying supine in bed at this time in no acute distress. HENMT: head is atraumatic and normocephalic. MMM, no JVD NECK: Noted FROM in a supple manner. RESPIRATORY: Lungs are CTAB in all hernandez. CARDIAC: Irregular rhythm of a-fib which is a normal variant for the pt. No m,r,g,h GI: Soft, NT, BS+x4, no rebound or guarding. SKIN: Intact without lesion, ecchymosis NEURO: No focal deficits, Generalized weakness present. EXTREMITIES: Right knee pain without edema, effusion, ecchymosis PSYCH: A&Ox4 Objective Data Vital Signs Vital Signs: Vital Signs - 24 hr 05/04/24 14:15 05/04/24 20:00 05/04/24 20:12 Temperature 97.0 F L Pulse Rate 70 81 77 Respiratory Rate 17 18 17 Blood Pressure 151/62 H Pulse Oximetry 98 97 Oxygen Delivery Room Air Fraction of Inspired Oxygen 21 05/04/24 20:13 05/04/24 21:19 05/05/24 06:00 Temperature 97.1 F L 97.6 F Pulse Rate 77 81 80 Respiratory Rate 18 16 Blood Pressure 122/64 126/67 Pulse Oximetry 97 97 96 Oxygen Delivery Room Air Fraction of Inspired Oxygen 05/05/24 08:03 05/05/24 08:03 Temperature Pulse Rate 69 Respiratory Rate 20 Blood Pressure Pulse Oximetry 94 Oxygen Delivery Room Air Fraction of Inspired Oxygen 21 Intake/Output Intake/Output: Intake & Output 05/02/24 05/03/24 05/04/24 05/05/24 23:59 23:59 23:59 23:59 Intake Total 240 1270 1470 440 Output Total 650 1575 400 Balance 240 620 -105 40 Meds/Results Medications: Active Medications Generic Name Dose Route Start Last Admin Trade Name Freq PRN Reason Stop Dose Admin Acetaminophen 650 mg 05/02/24 15:39 05/03/24 10:53 Acetaminophen 325 Mg Tablet PO 650 mg Q4H PRN Administration Mild Pain (1-3) or Fever Albuterol/Ipratropium 3 ml 05/03/24 09:35 Ipratropium 0.5 Mg/Albuterol Sulfate 2.5 Mg Ampul.Neb 3 Ml INHALATION Q6HRT PRN Wheezing Apixaban 5 mg 05/03/24 09:00 05/05/24 08:06 Apixaban 5 Mg Tablet PO 5 mg Q12HR MELISSA Administration Atorvastatin Calcium 40 mg 05/02/24 21:05 05/04/24 18:38 Atorvastatin 40 Mg Tablet PO 40 mg QPM MELISSA Administration Clopidogrel Bisulfate 75 mg 05/03/24 09:00 05/05/24 08:06 Clopidogrel Bisulfate 75 Mg Tablet PO 75 mg DAILY MELISSA Administration Diclofenac Sodium 1 applic 05/04/24 13:00 05/05/24 08:06 Diclofenac Sodium 1% 100 Gm Gel (*Bkc) TOPICAL 1 applic QID MELISSA Administration Diltiazem HCl 180 mg 05/03/24 09:00 05/05/24 08:06 Diltiazem Hcl Cd 180 Mg Cap.24hr PO 180 mg DAILY MELISSA Administration Finasteride 5 mg 05/03/24 09:00 05/05/24 08:06 Finasteride 5 Mg Tablet PO 5 mg DAILY MELISSA Administration Fish Oil 1 gm 05/03/24 09:00 05/05/24 08:06 [place] 3 Polyunsat Fatty Acids 1 Gm Cap PO 1 gm DAILY MELISSA Administration Furosemide 40 mg 05/03/24 09:00 05/05/24 08:06 Furosemide 40 Mg Tablet PO 40 mg DAILY MELISSA Administration Insulin Aspart 3 - 6 units 05/02/24 17:00 05/05/24 08:12 Insulin Aspart (*Bkc) 100 Units/Ml SUB-Q Not Given TIDWM [facility] Protocol Meclizine HCl 12.5 mg 05/02/24 20:54 Meclizine Hcl 12.5 Mg Tablet PO QID PRN dizziness Metformin HCl 1,000 mg 05/04/24 11:25 05/05/24 08:06 Metformin Hcl 500 Mg Tablet PO 1,000 mg BIDWM MELISSA Administration Multivitamins/Minerals 1 tab 05/03/24 12:00 05/05/24 11:16 Multivitamins /C Lutein (Centrum Silver) Tablet *Bkc PO 1 tab DAILY@1200 MELISSA Administration Ondansetron HCl 4 mg 05/02/24 15:39 Ondansetron Inj 4 Mg/2 Ml Vial IV PUSH Q4H PRN Nausea Oxybutynin Chloride 15 mg 05/02/24 21:00 05/04/24 20:45 Oxybutynin Chloride Xl 5 Mg Tab.Er.24 PO 15 mg HS MELISSA Administration Fluticasone/Salmeterol 2 puff 05/02/24 21:05 05/05/24 08:01 Fluticasone/Salmeterol 115-21 Mcg Inhaler 1 Puff INHALATION 2 puff Q12HRT MELISSA Administration Spironolactone 12.5 mg 05/03/24 09:00 05/05/24 08:06 Spironolactone 12.5 Mg Tablet PO 12.5 mg DAILY MELISSA Administration Tamsulosin HCl 0.8 mg 05/02/24 21:00 05/04/24 20:45 Tamsulosin Hcl 0.4 Mg Capsule PO 0.8 mg HS MELISSA Administration Radiology Results: ITS Impressions Chest X-Ray 05/02/24 11:01 IMPRESSION: Bibasilar opacification suggestive of atelectasis versus pneumonia. Head CT 05/02/24 12:28 Impression: No acute abnormality. 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 Atrophy and chronic white matter changes, as above. Sinus disease, as above. Lumbar Spine CT 05/02/24 13:39 IMPRESSION: No acute osseous abnormality. Multilevel degenerative disc disease with variable degrees of intervertebral foraminal narrowing. Knee X-Ray 05/03/24 11:29 Impression: 1: Severe osteoarthritis of the right knee. Labs Labs: Laboratory Results - last 24 hr 05/04/24 05/04/24 05/05/24 17:08 20:12 08:12 POC Capillary Glucose 147 H 225 H 129 H Quality VTE Prophylaxis VTE prophylaxis: pharmacologic ordered Hospitalist MIPS Advance Care Plan I have confirmed that the patient's Advanced Care Plan is present, code status is documented, or surrogate decision maker is listed in patient medical record.: Yes Medication Reconciliation I have utilized all available resources to obtain, update and review the patients current medications (includes all prescriptions, OTC, herbals, cannabis, and nutritional supplements).: Yes
[2024-05-05 12:34] LABS: Glucose Point of Care 126 mg/dl (65-105)
[2024-05-05 14:00] VITALS: BP 132/61; PULSE 90; RESP 17; TEMP 36.4; O2SAT 97
[2024-05-05] MEDS: GABAPENTIN 100 MG CAPSULE 200 MG PO ×2 (17:02→21:04)
[2024-05-05] MEDS: ATORVASTATIN 40 MG TABLET PO (17:04)
[2024-05-05 17:10] LABS: Glucose Point of Care 156 mg/dl (65-105)
[2024-05-05 19:50] VITALS: O2SAT 97
[2024-05-05] MEDS: oxyBUTYnin CHLORIDE XL 5 MG TAB.ER.24 15 MG PO (20:26)
[2024-05-05] MEDS: TAMSULOSIN HCL 0.4 MG CAPSULE 0.8 MG PO (20:26)
[2024-05-05 20:30] VITALS: PULSE 72; RESP 16; O2SAT 96
[2024-05-05 21:09] LABS: Glucose Point of Care 131 mg/dl (65-105)
[2024-05-05 21:25] VITALS: BP 132/58; PULSE 72; RESP 16; TEMP 36.5; O2SAT 96
[2024-05-06 06:00] VITALS: BP 133/67; PULSE 81; RESP 18; TEMP 36.9; O2SAT 96
[2024-05-06] MEDS: GABAPENTIN 100 MG CAPSULE 200 MG PO ×3 (06:10→17:35)
[2024-05-06 07:38] VITALS: PULSE 68; RESP 20; O2SAT 94
[2024-05-06] MEDS: FLUTICASONE/SALMETEROL 115-21 MCG INHALER 1 PUFF 2 PUFF INHALATION (07:38)
[2024-05-06 08:28] LABS: Glucose Point of Care 114 mg/dl (65-105)
[2024-05-06] MEDS: LIDOCAINE 5% PATCH 3 PATCH TRANSDERM (09:22)
[2024-05-06] MEDS: dilTIAZem HCL CD 180 MG CAP.24HR PO (09:23)
[2024-05-06] MEDS: APIXABAN 5 MG TABLET PO ×2 (09:23→20:01)
[2024-05-06] MEDS: metFORMIN HCL 500 MG TABLET 1000 MG PO ×2 (09:23→17:35)
[2024-05-06] MEDS: OMEGA 3 POLYUNSAT FATTY ACIDS 1 GM CAP PO (09:23)
[2024-05-06] MEDS: FUROSEMIDE 40 MG TABLET PO (09:23)
[2024-05-06] MEDS: CLOPIDOGREL BISULFATE 75 MG TABLET PO (09:23)
[2024-05-06] MEDS: FINASTERIDE 5 MG TABLET PO (09:24)
[2024-05-06] MEDS: SPIRONOLACTONE 12.5 MG TABLET PO (09:27)
[2024-05-06] MEDS: DICLOFENAC SODIUM 1% 100 GM GEL (*BKC) 1 APPLIC TOPICAL ×2 (09:27→17:35)
--- NOTE | 2024-05-06 10:31 | P.PNIM_ITS ---
Progress Note: A&P Assessment and Plan (1) Frequent falls: Code(s): R29.6 - Repeated falls Status: Acute Assessment and Plan: Multiple falls recently. He reports no dizziness, knees give out He is acutely tender to his right knee * PT and OT recommended placement, auth pending * Fall precautions * Treatment of knee pain as noted (2) Lower extremity weakness: Qualifiers: Laterality: bilateral Qualified Code(s): R29.898 - Other symptoms and signs involving the musculoskeletal system Code(s): R29.898 - Other symptoms and signs involving the musculoskeletal system Status: Acute Assessment and Plan: * See #1 (3) Knee pain: Code(s): M25.569 - Pain in unspecified knee Status: Acute Assessment and Plan: Right knee is painful, unable to put pressure on his foot without knee pain. Has been improving with voltaren gel. No obvious effusion, ecchymosis. X-ray right knee No acute fractures. Showed severe tricompartmental osteoarthritis * May benefit from steroid injections, can follow up with orthopedic surgery outpatient, though this will take coordination since he's on anticoagulation * Continue Topical voltaren--feels it has been helpful (4) Atrial fibrillation: Qualifiers: Atrial fibrillation type: unspecified Qualified Code(s): I48.91 - Unspecified atrial fibrillation Code(s): I48.91 - Unspecified atrial fibrillation Status: Chronic Assessment and Plan: * Continue Eliquis for chronic anticoagulation. (5) Essential hypertension: Code(s): I10 - Essential (primary) hypertension Status: Chronic Assessment and Plan: * Continue Cardizem and Spironolactone. * Blood pressure controlled, 122-126/64-67 * Continue to monitor and trend. 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: Qualifiers: Chronic kidney disease stage 3 subtype: stage 3a (GFR 45-59) Diabetes mellitus jail insulin use: without jail use Qualified Code(s): E11.22 - Type 2 diabetes mellitus with diabetic chronic kidney disease; N18.31 - Chronic kidney disease, stage 3a Code(s): E11.22 - Type 2 diabetes mellitus with diabetic chronic kidney disease; N18.3 - Chronic kidney disease, stage 3 (moderate) Status: Chronic Assessment and Plan: Fasting blood sugar 114 05/06. Currently controlled Home meds: Metformin, glipizide * Resumed home metformin * Continue with SSI prn * Hypoglycemic protocol * Glucose checks AC and HS * Diabetic diet w/supplements. (7) Back pain: Code(s): M54.9 - Dorsalgia, unspecified Status: Acute Assessment and Plan: Chronic back pain. He reports pain chronic, planning outpatient surgery. 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 Continue for now --Topical lidocaine to back, feels it is helpful. --Able to walk with assistance. If worsening, consider repeat imaging, but follows with ortho and will defer to outpatient if improving (8) Elevated white blood cell count: Code(s): D72.829 - Elevated white blood cell count, unspecified Status: Inactive Assessment and Plan: White count slightly elevated to 14.2. No evidence of infection. recently completed doxycycline --Follow WBC in AM --Monitor off antibiotics (9) CKD (chronic kidney disease): Code(s): N18.9 - Chronic kidney disease, unspecified Status: Acute Assessment and Plan: Baseline creatinine 1.3-1.8. 1.3-1.5 during admission --Renally dose meds --Slightly more elevated overnight, but still at recent baseline, repeat in AM Time Spent With Patient Time: 63 minutes Subjective Date/time seen: 05/06/24 10:31 Interval history: Stable for discharge, pending insurance authorization Needs assistance to get up. Feels weaker this morning, but was able to walk to the bathroom with morning. More mobile today per discussion with RN. Knee and back pain improved overall. WBC up to 14 but no new symptoms. Hospital Course: 83-year-old male with a past medical history of coronary artery disease, obstructive sleep apnea noncompliant of CPAP, COPD, BPH, CHF, chronic kidney disease stage 3 and chronic gait instability who presented to the ER via EMS due to fall and requiring lift assist. Pain and activity improving during admission with pain control. Has follow up planned with orthopedic surgery. Right Knee pain Chronic low back pain Follows with orthopedic surgery outpatient. X-ray right knee showed no fractures. No obvious effusion, ecchymosis. Noted severe tricompartmental osteoarthritis. Mild swelling and pain improving with voltaren gel. Back pain improving with lidocaine patches. Also started gabapentin 200 TID. Right knee is painful, unable to put pressure on his foot without knee pain. Has been improving with voltaren gel QID, changed to BID & prn * May benefit from steroid injections or eventual knee replacement, can follow up with orthopedic surgery outpatient, though this will take coordination since he's on anticoagulation * Started gabapentin 200mg TID. Continued Voltaren gel, lidocaine patches, and tylenol prn HTN Home meds: Continued Diltiazem 180mg daily, Spironolactone 12.5mg, furosemide 40mg daily, also on tamsulosin 0.8mg hs. Blood pressure controlled, 122-126/64-67 Diabetes Home meds: Metformin, glipizide Intially held meds. Resumed home metformin. Continued SSI prn. Diabetic diet CKD Baseline creatinine 1.3-1.8. 1.3-1.5 during admission Elevated WBC Recent cough, treatment of pneumonia. Completed doxycycline 05/04 Monitored symptoms. WBC 14 05/06 Hx Afib CAD Home meds: Eliquis 5 BID, Atorvastatin 40mg, omega 3, Clopidogrel 75 Continued meds Outpatient cardiology follow up Review of Systems Review of Systems: 12 systems were reviewed with pertinent positives and negatives per HPI. Except as documented in the HPI, all other systems were reviewed and are negative. All systems reviewed & are unremarkable except as noted in HPI and below Exam Narrative: CONSTITUTIONAL: Pleasant, elderly male sitting in a chair in no acute distress. HENMT: head is atraumatic and normocephalic. MMM, no JVD NECK: Noted FROM in a supple manner. RESPIRATORY: Lungs are CTAB in all hernandez. CARDIAC: Irregular rhythm of a-fib which is a normal variant for the pt. No m,r,g,h GI: Soft, NT, BS+x4, no rebound or guarding. SKIN: Intact without lesion, ecchymosis NEURO: No focal deficits, Generalized weakness present, generalized tremors with activity EXTREMITIES: Right knee pain with improved edema, effusion, ecchymosis. Mild intention tremors PSYCH: A&Ox4 Objective Data Vital Signs Vital Signs: Vital Signs - 24 hr 05/05/24 14:00 05/05/24 19:50 05/05/24 20:30 Temperature 97.6 F Pulse Rate 90 72 Respiratory Rate 17 16 Blood Pressure 132/61 Pulse Oximetry 97 97 96 Oxygen Delivery Room Air Room Air Fraction of Inspired Oxygen 05/05/24 21:25 05/06/24 06:00 05/06/24 07:38 Temperature 97.7 F 98.5 F Pulse Rate 72 81 Respiratory Rate 16 18 Blood Pressure 132/58 L 133/67 Pulse Oximetry 96 96 94 Oxygen Delivery Room Air Fraction of Inspired Oxygen 05/06/24 07:38 Temperature Pulse Rate 68 Respiratory Rate 20 Blood Pressure Pulse Oximetry Oxygen Delivery Fraction of Inspired Oxygen Intake/Output Intake/Output: Intake & Output 05/03/24 05/04/24 05/05/24 05/06/24 23:59 23:59 23:59 23:59 Intake Total 1270 1470 920 460 Output Total 650 1575 1330 550 Balance 620 -105 -410 -90 Meds/Results Medications: Active Medications Generic Name Dose Route Start Last Admin Trade Name Freq PRN Reason Stop Dose Admin Acetaminophen 650 mg 05/02/24 15:39 05/03/24 10:53 Acetaminophen 325 Mg Tablet PO 650 mg Q4H PRN Administration Mild Pain (1-3) or Fever Albuterol/Ipratropium 3 ml 05/03/24 09:35 Ipratropium 0.5 Mg/Albuterol Sulfate 2.5 Mg Ampul.Neb 3 Ml INHALATION Q6HRT PRN Wheezing Apixaban 5 mg 05/03/24 09:00 05/06/24 09:23 Apixaban 5 Mg Tablet PO 5 mg Q12HR MELISSA Administration Atorvastatin Calcium 40 mg 05/02/24 21:05 05/05/24 17:04 Atorvastatin 40 Mg Tablet PO 40 mg QPM MELISSA Administration Clopidogrel Bisulfate 75 mg 05/03/24 09:00 05/06/24 09:23 Clopidogrel Bisulfate 75 Mg Tablet PO 75 mg DAILY MELISSA Administration Diclofenac Sodium 1 applic 05/04/24 13:00 05/06/24 09:27 Diclofenac Sodium 1% 100 Gm Gel (*Bkc) TOPICAL 1 applic QID MELISSA Administration Diltiazem HCl 180 mg 05/03/24 09:00 05/06/24 09:23 Diltiazem Hcl Cd 180 Mg Cap.24hr PO 180 mg DAILY MELISSA Administration Finasteride 5 mg 05/03/24 09:00 05/06/24 09:24 Finasteride 5 Mg Tablet PO 5 mg DAILY MELISSA Administration Fish Oil 1 gm 05/03/24 09:00 05/06/24 09:23 [place] 3 Polyunsat Fatty Acids 1 Gm Cap PO 1 gm DAILY MELISSA Administration Furosemide 40 mg 05/03/24 09:00 05/06/24 09:23 Furosemide 40 Mg Tablet PO 40 mg DAILY MELISSA Administration Insulin Aspart 3 - 6 units 05/02/24 17:00 05/06/24 09:21 Insulin Aspart (*Bkc) 100 Units/Ml SUB-Q Not Given TIDWM [facility] Protocol Lidocaine 3 patch 05/06/24 09:00 05/06/24 09:22 Lidocaine 5% Patch TRANSDERM 3 patch DAILY MELISSA Administration Meclizine HCl 12.5 mg 05/02/24 20:54 Meclizine Hcl 12.5 Mg Tablet PO QID PRN dizziness Metformin HCl 1,000 mg 05/04/24 11:25 05/06/24 09:23 Metformin Hcl 500 Mg Tablet PO 1,000 mg BIDWM [facility] Administration Multivitamins/Minerals 1 tab 05/03/24 12:00 05/05/24 11:16 Multivitamins /C Lutein (Centrum Silver) Tablet *Bkc PO 1 tab DAILY@1200 [facility] Administration Ondansetron HCl 4 mg 05/02/24 15:39 Ondansetron Inj 4 Mg/2 Ml Vial IV PUSH Q4H PRN Nausea Oxybutynin Chloride 15 mg 05/02/24 21:00 05/05/24 20:26 Oxybutynin Chloride Xl 5 Mg Tab.Er.24 PO 15 mg HS [facility] Administration Fluticasone/Salmeterol 2 puff 05/02/24 21:05 05/06/24 07:38 Fluticasone/Salmeterol 115-21 Mcg Inhaler 1 Puff INHALATION 2 puff Q12HRT MELISSA Administration Spironolactone 12.5 mg 05/03/24 09:00 05/06/24 09:27 Spironolactone 12.5 Mg Tablet PO 12.5 mg DAILY MELISSA Administration Tamsulosin HCl 0.8 mg 05/02/24 21:00 05/05/24 20:26 Tamsulosin Hcl 0.4 Mg Capsule PO 0.8 mg HS [facility] Administration Radiology Results: ITS Impressions Chest X-Ray 05/02/24 11:01 IMPRESSION: Bibasilar opacification suggestive of atelectasis versus pneumonia. Head CT 05/02/24 12:28 Impression: No acute abnormality. 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 Atrophy and chronic white matter changes, as above. Sinus disease, as above. Lumbar Spine CT 05/02/24 13:39 IMPRESSION: No acute osseous abnormality. Multilevel degenerative disc disease with variable degrees of intervertebral foraminal narrowing. Knee X-Ray 05/03/24 11:29 Impression: 1: Severe osteoarthritis of the right knee. Labs Labs: Laboratory Results - last 24 hr 05/05/24 05/05/24 05/05/24 12:09 16:54 21:06 POC Capillary Glucose 126 H 156 H 131 H 05/06/24 08:20 POC Capillary Glucose 114 H Quality VTE Prophylaxis VTE prophylaxis: pharmacologic ordered Hospitalist MIPS Advance Care Plan I have confirmed that the patient's Advanced Care Plan is present, code status is documented, or surrogate decision maker is listed in patient medical record.: Yes Medication Reconciliation I have utilized all available resources to obtain, update and review the patients current medications (includes all prescriptions, OTC, herbals, cannabis, and nutritional supplements).: Yes
[2024-05-06 11:11] LABS: Basophils Percent Auto 0.3 % (0.2-1.2); Eosinophils Absolute Auto 0.1 K/mm3 (0-0.3); Eosinophils Percent Auto 0.7 % (0-4.4); Hemoglobin 16.1 g/dL (14.0-18.0); Immature Granulocyte Absolute 0.13 K/mm3 (0.00-0.031); Immature Granulocyte Percent A 0.9 % (0-0.5); Lymphocytes Absolute Auto 2.19 K/mm3 (0.9-3.2); Lymphocytes Percent Auto 15.5 % (18.3-44.2); Mean Corpuscular HGB Conc 32.9 g/dl (32-36); Mean Corpuscular Hemoglobin 31.2 pg (26-34); Mean Platelet Volume 9.8 fl (7.4-10.4); Monocytes Absolute Auto 0.8 K/mm3 (0.1-0.6); Monocytes Percent Auto 5.7 % (2.6-8.5); Neutrophils Absolute Auto 10.9 K/mm3 (1.3-6.7); Neutrophils Percent Auto 76.9 % (45.5-73.1); Platelet Count Result 275 k/mm3 (150-375); Red Blood Count 5.16 M/mm3 (4.6-6.20); Red Cell Distribution Width 15.2 % (11.5-14.5); White Blood Count 14.2 K/mm3 (4.5-10.0)
[2024-05-06 11:21] LABS: Anion Gap 8 mmol/L (4-12); Blood Urea Nitrogen 30 mg/dL (9-20); Calcium 9.4 mg/dL (8.4-10.2); Carbon Dioxide 25 mmol/L (22-30); Chloride 102 mmol/L (98-107); Estimated CRCL calculation 42 ml/min; Estimated Glomerular Filt Rate 45; Glucose 184 mg/dL (65-110); Magnesium 2.1 mg/dL (1.6-2.3); Sodium 135 mmol/L (137-145)
[2024-05-06 12:04] LABS: Glucose Point of Care 164 mg/dl (65-105)
[2024-05-06] MEDS: MULTIVITAMINS /C LUTEIN (CENTRUM SILVER) TABLET *BKC 1 TAB PO (12:16)
[2024-05-06 14:00] VITALS: BP 130/62; PULSE 78; RESP 19; TEMP 36.8; O2SAT 96
[2024-05-06 16:58] LABS: Glucose Point of Care 122 mg/dl (65-105)
[2024-05-06] MEDS: ATORVASTATIN 40 MG TABLET PO (17:35)
[2024-05-06] MEDS: TAMSULOSIN HCL 0.4 MG CAPSULE 0.8 MG PO (20:01)
[2024-05-06] MEDS: oxyBUTYnin CHLORIDE XL 5 MG TAB.ER.24 15 MG PO (20:01)
[2024-05-06 20:49] LABS: Glucose Point of Care 191 mg/dl (65-105)
[2024-05-06 21:16] VITALS: BP 151/52; PULSE 78; RESP 18; TEMP 36.4; O2SAT 96
[2024-05-07 06:00] VITALS: BP 139/55; PULSE 89; RESP 16; TEMP 36.1; O2SAT 99
[2024-05-07 06:10] LABS: Basophils Absolute Auto 0.1 K/mm3 (0.0-0.1); Basophils Percent Auto 0.5 % (0.2-1.2); Eosinophils Absolute Auto 0.2 K/mm3 (0-0.3); Eosinophils Percent Auto 1.5 % (0-4.4); Hematocrit 43.3 % (42.0-52.0); Immature Granulocyte Percent A 0.9 % (0-0.5); Lymphocytes Absolute Auto 2.49 K/mm3 (0.9-3.2); Lymphocytes Percent Auto 23.4 % (18.3-44.2); Mean Corpuscular HGB Conc 32.3 g/dl (32-36); Mean Corpuscular Hemoglobin 30.9 pg (26-34); Mean Corpuscular Volume 95.6 fl (80-100); Mean Platelet Volume 9.6 fl (7.4-10.4); Monocytes Absolute Auto 0.8 K/mm3 (0.1-0.6); Monocytes Percent Auto 7.9 % (2.6-8.5); Neutrophils Percent Auto 65.8 % (45.5-73.1); Platelet Count Result 235 k/mm3 (150-375); Red Blood Count 4.53 M/mm3 (4.6-6.20); White Blood Count 10.6 K/mm3 (4.5-10.0)
[2024-05-07 06:28] LABS: Anion Gap 3 mmol/L (4-12); Blood Urea Nitrogen 30 mg/dL (9-20); Calcium 8.7 mg/dL (8.4-10.2); Carbon Dioxide 28 mmol/L (22-30); Chloride 102 mmol/L (98-107); Estimated CRCL calculation 45 ml/min; Estimated Glomerular Filt Rate 49; Glucose 131 mg/dL (65-110); Potassium 4.2 mmol/L (3.4-5.0); Sodium 133 mmol/L (137-145)
[2024-05-07 08:13] LABS: Glucose Point of Care 112 mg/dl (65-105)
[2024-05-07] MEDS: GABAPENTIN 100 MG CAPSULE 200 MG PO ×2 (08:36→12:22)
[2024-05-07] MEDS: OMEGA 3 POLYUNSAT FATTY ACIDS 1 GM CAP PO (08:36)
[2024-05-07] MEDS: APIXABAN 5 MG TABLET PO (08:36)
[2024-05-07] MEDS: FUROSEMIDE 40 MG TABLET PO (08:37)
[2024-05-07] MEDS: metFORMIN HCL 500 MG TABLET 1000 MG PO (08:37)
[2024-05-07] MEDS: FINASTERIDE 5 MG TABLET PO (08:37)
[2024-05-07] MEDS: CLOPIDOGREL BISULFATE 75 MG TABLET PO (08:37)
[2024-05-07] MEDS: SPIRONOLACTONE 12.5 MG TABLET PO (08:37)
[2024-05-07] MEDS: dilTIAZem HCL CD 180 MG CAP.24HR PO (08:38)
[2024-05-07] MEDS: DICLOFENAC SODIUM 1% 100 GM GEL (*BKC) 1 APPLIC TOPICAL (08:38)
[2024-05-07] MEDS: FLUTICASONE/SALMETEROL 115-21 MCG INHALER 1 PUFF 2 PUFF INHALATION (09:08)
--- NOTE | 2024-05-07 10:25 | PM.DS ---
DS: Admitting Diagnosis Discharge Date 05/07/2024 Admitting Diagnosis weak, chest congestion, decreased appetite. DS: Discharge Diagnosis Discharge Diagnosis (1) Frequent falls: Code(s): R29.6 - Repeated falls Status: Acute (2) Lower extremity weakness: Qualifiers: Laterality: bilateral Qualified Code(s): R29.898 - Other symptoms and signs involving the musculoskeletal system Code(s): R29.898 - Other symptoms and signs involving the musculoskeletal system Status: Acute (3) Knee pain: Code(s): M25.569 - Pain in unspecified knee Status: Acute (4) Atrial fibrillation: Qualifiers: Atrial fibrillation type: unspecified Qualified Code(s): I48.91 - Unspecified atrial fibrillation Code(s): I48.91 - Unspecified atrial fibrillation Status: Chronic (5) Essential hypertension: Code(s): I10 - Essential (primary) hypertension Status: Chronic 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: Qualifiers: Chronic kidney disease stage 3 subtype: stage 3a (GFR 45-59) Diabetes mellitus termite control representative insulin use: without termite control representative use Qualified Code(s): E11.22 - Type 2 diabetes mellitus with diabetic chronic kidney disease; N18.31 - Chronic kidney disease, stage 3a Code(s): E11.22 - Type 2 diabetes mellitus with diabetic chronic kidney disease; N18.3 - Chronic kidney disease, stage 3 (moderate) Status: Chronic (7) Back pain: Code(s): M54.9 - Dorsalgia, unspecified Status: Acute DS: Summary Hospital Course Hospital Course: 83-year-old male with a past medical history of coronary artery disease, obstructive sleep apnea noncompliant of CPAP, COPD, BPH, CHF, chronic kidney disease stage 3 and chronic gait instability who presented to the ER via EMS due to fall and requiring lift assist. Pain and activity improving during admission with pain control. Has follow up planned with orthopedic surgery. Right Knee pain Chronic low back pain Follows with orthopedic surgery outpatient. X-ray right knee showed no fractures. No obvious effusion, ecchymosis. Noted severe tricompartmental osteoarthritis. Mild swelling and pain improving with voltaren gel. Back pain improving with lidocaine patches. Also started gabapentin 200 TID. Right knee is painful, unable to put pressure on his foot without knee pain. Has been improving with voltaren gel QID, changed to BID & prn May benefit from steroid injections or eventual knee replacement, can follow up with orthopedic surgery outpatient, though this will take coordination since he's on anticoagulation Started gabapentin 200mg TID. Continued Voltaren gel, lidocaine patches, and tylenol prn HTN Home meds: Continued Diltiazem 180mg daily, Spironolactone 12.5mg, furosemide 40mg daily, also on tamsulosin 0.8mg hs. Blood pressure controlled, 122-126/64-67 Diabetes Home meds: Metformin, glipizide Intially held meds. Resumed home metformin. Continued SSI prn. Diabetic diet CKD Baseline creatinine 1.3-1.8. 1.3-1.5 during admission Elevated WBC Recent cough, treatment of pneumonia. Completed doxycycline 05/04 Monitored symptoms. WBC 10.6 05/07 Hx Afib CAD Home meds: Eliquis 5 BID, Atorvastatin 40mg, omega 3, Clopidogrel 75 Continued meds Outpatient cardiology follow up Chest X-ray: Bibasilar opacification suggestive of atelectasis versus pneumonia. Completed Doxycycline. Lumbar spine CT: IMPRESSION: No acute osseous abnormality. Multilevel degenerative disc disease with variable degrees of intervertebral foraminal narrowing. Right knee X-ray: Severe osteoarthritis of the right knee. Head CT: Findings: Stable focal hyperdensity in the right occipital lobe. No acute infarct or acute intracranial hemorrhage evident. The ventricles and subarachnoid spaces are dilated, consistent with mild atrophy. Low attenuation regions are seen within the periventricular white matter bilaterally, likely representing changes from chronic microvascular ischemic disease. There is no evidence of edema, mass effect or midline shift. There is fluid layering bilateral maxillary sinuses. The remaining visualized paranasal sinuses and mastoid air cells are clear. Impression: No acute abnormality. 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 Atrophy and chronic white matter changes, as above. Sinus disease, as above. Discharge to [facility] for rehab. Status at Discharge Functional status at discharge: uses cane/walker Overall status at discharge: patient is not back to baseline Time Spent with Patient Time attestation: Total time spent providing and/or coordinating discharge services: Time spent: Greater than 30 minutes Exam Const: General: comfortable and no acute distress Resp: Effort & Inspection: normal respiratory effort Auscultation: clear to auscultation bilaterally Cardio: Rhythm: abnormal rhythm irregularly irregular GI: GI Palp: Yes Soft to palpation Auscultation: normal bowel sounds Skin: Other: bilateral scattered ecchymosis to arms. Extrem: Other: Right knee pain with improved edema, effusion, ecchymosis. Mild intention tremors Psych: Mental Status: mental status grossly normal Affect: normal affect DS: Data Data Completed and Pending Labs on day of discharge: Labs from last 24 hours 05/07/24 05/07/24 05/06/24 08:07 05:33 20:44 WBC 10.6 H RBC 4.53 L Hgb 14.0 Hct 43.3 MCV 95.6 MCH 30.9 MCHC 32.3 RDW 15.0 H Plt Count 235 MPV 9.6 Immature Gran % (Auto) 0.9 H Neut % (Auto) 65.8 Lymph % (Auto) 23.4 Mitchell % (Auto) 7.9 Eos % (Auto) 1.5 Baso % (Auto) 0.5 Lymph # (Auto) 2.49 Mitchell # (Auto) 0.8 H Eos # (Auto) 0.2 Baso # (Auto) 0.1 Abs Immat Gran (auto) 0.10 H Absolute Neuts (auto) 7.0 H Absolute Nucleated RBC 0.000 Nucleated RBC % 0.0 Sodium 133 L Potassium 4.2 Chloride 102 Carbon Dioxide 28 Anion Gap 3 L BUN 30 H Creatinine 1.40 H Estim Creat Clear Calc 45 Estimated GFR 49 L Glucose 131 H POC Capillary Glucose 112 H 191 H Calcium 8.7 Magnesium 05/06/24 05/06/24 05/06/24 16:37 11:53 10:50 WBC 14.2 H RBC 5.16 Hgb 16.1 Hct 49.0 MCV 95.0 MCH 31.2 MCHC 32.9 RDW 15.2 H Plt Count 275 MPV 9.8 Immature Gran % (Auto) 0.9 H Neut % (Auto) 76.9 H Lymph % (Auto) 15.5 L Mitchell % (Auto) 5.7 Eos % (Auto) 0.7 Baso % (Auto) 0.3 Lymph # (Auto) 2.19 Mitchell # (Auto) 0.8 H Eos # (Auto) 0.1 Baso # (Auto) 0.0 Abs Immat Gran (auto) 0.13 H Absolute Neuts (auto) 10.9 H Absolute Nucleated RBC 0.000 Nucleated RBC % 0.0 Sodium 135 L Potassium 5.0 Chloride 102 Carbon Dioxide 25 Anion Gap 8 BUN 30 H Creatinine 1.50 H Estim Creat Clear Calc 42 Estimated GFR 45 L Glucose 184 H POC Capillary Glucose 122 H 164 H Calcium 9.4 Magnesium 2.1 Discharge Plan Discharge Attending physician on discharge: Forest Bernal Discharging Clinician: Allison Gil Anticipated Discharge Date/Time: 05/07/24 13:30 Patient Disposition: SNF Activity: may shower and other - see discharge instructions Diet: diabetic Discharge Instructions: PT/OT Patient Instructions: Antibiotic Form, Apixaban (By mouth), Pain Management (DC), Pneumonia (DC) Patient Language: Lao Stand Alone Forms: General Discharge Information Follow-up/Referrals: Jose Nolan MD [Primary Care Provider] - 2 Weeks Discharge Medications: New acetaminophen 325 mg Tablet 650 mg PO Q4H PRN (Reason: Mild Pain (1-3) Or Fever) Qty: 30 0RF gabapentin 100 mg Capsule 200 mg PO TID Qty: 60 0RF diclofenac sodium 1 % gel 2 g topical BID Qty: 100 0RF Rx Instructions: apply to single elbow, wrist or hand; for hand includes palm/fingers/back of hand Apply to back. Continued vitamin B complex [B Complex-Vitamin B12] Tablet 1 tablet PO DAILY Adults Multivitamin 18 mg iron-400 mcg-25 mcg Tablet 1 tablet PO DAILY atorvastatin 40 mg tablet 40 mg PO QPM omega-3 fatty acids Capsule 1,000 mg PO DAILY albuterol sulfate [ProAir HFA] 90 mcg/actuation HFA aerosol inhaler 2 puff INHALATION Q4H PRN (Reason: shortness of breath or wheezing) Qty: 8.5 5RF meclizine 12.5 mg tablet 12.5 mg PO QID PRN (Reason: dizziness) furosemide 40 mg tablet 40 mg PO DAILY tamsulosin 0.4 mg capsule 0.8 mg PO HS diltiazem HCl 180 mg capsule,extended release 24hr 180 mg PO Q24H Rx Instructions: TAKE 1 CAPSULE BY MOUTH EVERY DAY Eliquis 5 mg tablet 5 mg PO Q12H Rx Instructions: TAKE 1 TABLET BY MOUTH TWICE A DAY (DME) lancets [Lancets, Super Thin] Misc See Rx Instructions .ROUTE .MEDSUPPLY Qty: 100 2RF Rx Instructions: Use to check blood sugar daily (DME) Contour Next Test Strips Strip See Rx Instructions .ROUTE .MEDSUPPLY Qty: 100 0RF Rx Instructions: Use to test blood sugar once daily metformin 1,000 mg tablet 1,000 mg PO BID Qty: 180 1RF clopidogrel 75 mg tablet 75 mg PO DAILY Qty: 90 2RF fluticasone propion-salmeterol [Wixela Inhub] 250-50 mcg/dose blister with device See Rx Instructions .ROUTE .COMPLEX Qty: 180 1RF Dose Instruction: INHALE 1 PUFF BY MOUTH TWICE A DAY Rx Instructions: INHALE 1 PUFF BY MOUTH TWICE A DAY finasteride 5 mg tablet See Rx Instructions .ROUTE .COMPLEX Qty: 90 1RF Dose Instruction: TAKE 1 TABLET BY MOUTH EVERY DAY Rx Instructions: TAKE 1 TABLET BY MOUTH EVERY DAY spironolactone 25 mg tablet See Rx Instructions .ROUTE .COMPLEX Qty: 45 2RF Dose Instruction: TAKE 1/2 TABLET BY MOUTH EVERY DAY Rx Instructions: TAKE 1/2 TABLET BY MOUTH EVERY DAY oxybutynin chloride 15 mg tablet extended release 24hr 15 mg PO HS Qty: 90 1RF glipizide 2.5 mg tablet extended release 24hr See Rx Instructions .ROUTE .COMPLEX Qty: 90 1RF Dose Instruction: TAKE 1 TABLET BY MOUTH EVERY DAY Rx Instructions: TAKE 1 TABLET BY MOUTH EVERY DAY Discontinued doxycycline hyclate 100 mg tablet 100 mg PO BID Qty: 20 0RF Date of admission: 05/02/24 15:39 Primary Care Provider: Jose Nolan Admitting Provider: Camille Szymanski Attending physician on admission: Nina Figueroa Condition: Stable Hospitalist MIPS Heart Failure (Exclusion) Patient has history of Heart Transplant or Left Ventricular Assistive Device?: No IF YES, STOP HERE Heart Failure (Qualifier) Patient has current or prior documentation of LVEF less than or equal to 40%, or mod/servere depressed LVSF?: No IF NO, STOP HERE
[2024-05-07] MEDS: LIDOCAINE 5% PATCH 3 PATCH TRANSDERM (10:30)
[2024-05-07 12:18] LABS: Glucose Point of Care 167 mg/dl (65-105)
[2024-05-07] MEDS: MULTIVITAMINS /C LUTEIN (CENTRUM SILVER) TABLET *BKC 1 TAB PO (12:22)
[2024-05-07 14:00] VITALS: BP 138/54; PULSE 90; RESP 16; TEMP 36.8; O2SAT 95
== END 2024-05-07 16:39 ==
LOC: ANHED 14:35 → ANH2MED 05-03 05:14
PROVIDERS: Internal Medicine; Nurse Practitioner Adult Health; Admitting Provider Hospitalist; Emergency Provider Family Medicine; PCP Family Medicine; Visit Provider Nurse Practitioner Acute Care
DX: R29.898 Other symptoms and signs involving the musculoskeletal system (principal); R26.89 Other abnormalities of gait and mobility; M17.11 Unilateral primary osteoarthritis, right knee; R29.6 Repeated falls; I48.91 Unspecified atrial fibrillation; E11.42 Type 2 diabetes mellitus with diabetic polyneuropathy; I13.0 Hypertensive heart and chronic kidney disease with heart failure and stage 1 through stage 4 chronic kidney disease, or unspecified chronic kidney disease; E11.22 Type 2 diabetes mellitus with diabetic chronic kidney disease; N18.31 Chronic kidney disease, stage 3a; I50.9 Heart failure, unspecified; I25.10 Atherosclerotic heart disease of native coronary artery without angina pectoris; G89.29 Other chronic pain; M54.50 Low back pain, unspecified; G47.33 Obstructive sleep apnea (adult) (pediatric); N40.0 Benign prostatic hyperplasia without lower urinary tract symptoms; J44.9 Chronic obstructive pulmonary disease, unspecified; E78.2 Mixed hyperlipidemia; U09.9 Post COVID-19 condition, unspecified; Z20.822 Contact with and (suspected) exposure to COVID-19; Z87.01 Personal history of pneumonia (recurrent); Z66 Do not resuscitate; Z98.1 Arthrodesis status; Z87.891 Personal history of nicotine dependence; Z79.51 Long term (current) use of inhaled steroids; Z79.01 Long term (current) use of anticoagulants; Z79.84 Long term (current) use of oral hypoglycemic drugs; Z79.899 Other long term (current) drug therapy; Z91.199 Patient's noncompliance with other medical treatment and regimen due to unspecified reason
CPT/HCPCS: 36415; 70450; 71045; 72131; 73562; 80048; 80053; 81001; 82948; 83735; 84443; 85025; 85027; 87637; 93005; 94640; 96374; 97110; 97116; 97161; 97165; 97530; 99285; A9270; G0378; J1815

== ENCOUNTER 2024-06-12 15:05 | Outpatient (NON) | payer OTHER, SELFPAY ==
--- OUTSIDE RECORDS SUMMARY | 2024-06-12 15:35 | XMS_ITS | Referral Summary ---
Author Organization [facility] Address [address] [place] [address] Care Team Providers Care Machinist Supervisor Name Role Phone Dale Saldaña MD Primary Care Provider [phone] Source Comments [facility],non-owned Affiliates and Associated Physician Practices is amultiple site organization consisting of ambulatory clinics and hospital sitesin [place], [place], [place] and [place]. This disclosure is being madepursuant to the Care Everywhere program and may not contain all information available regarding this patient. Last updated 18.[facility] [employer] Allergies Active Allergy Reactions Criticality Noted Date Comments Morphine Nausea and/or Vomiting Low 06/13/2023 Medications * Be aware that medications may not be up to date on this document. Alwaysverify current medications with the patient. Medication Sig Dispensed Refills Start Date End Date Status fluticasone-salmetero l (Advair/Wixela) 250-50 MCG/ACT inhaler Inhale 1 (one) puff by mouth 2 times daily Active dilTIAZem coated beads 24hr (Cardizem CD) 180 MG capsule Take 1 (one) capsule by mouth once daily 04/08/2023 Active tamsulosin (Flomax) 0.4 MG capsule Take 2 (two) capsules by mouth once daily 05/19/2023 Active albuterol HFA (Proventil; Ventolin; Proair) 108 (90 Base) MCG/ACT inhaler Inhale 2 (two) puffs by mouth every 6 hours as needed Active apixaban (Eliquis) 5 MG tablet Take 1 (one) tablet by mouth 2 times daily Active oxyBUTYnin CR 24hr (Ditropan XL) 15 MG tablet Take 1 (one) tablet by mouth 06/15/2023 Active spironolactone (Aldactone) 25 MG tablet Take 0.5 (one-half) tablet by mouth once daily 04/25/2023 Active pravastatin (Pravachol) 40 MG tablet Take 1 (one) tablet by mouth once daily 12/19/2022 Active finasteride (Proscar) 5 MG tablet Take 1 (one) tablet by mouth once daily 04/08/2023 Active metFORMIN (Glucophage) 1000 MG tablet Take 1 (one) tablet by mouth 2 times daily 05/18/2023 Active Social History Tobacco Use Types Packs/Day Years Used Date Smoking Tobacco: Never Passive Smoke Exposure: Never Smokeless Tobacco: Never Alcohol Use Standard Drinks/Week Comments Never 0 (1 standard drink = 0.6 oz pur e alcohol) Sex and Gender Information Value Date Recorded Sex Assigned at Not on file Gender Identity Not on file Sexual Orientation Not on file Last Filed Vital Signs Vital Sign Reading Time Taken Comments Blood Pressure 143/85 06/30/2023 3:13 PM SHEET METAL DUCT INSTALLER HELPER Pulse 82 06/30/2023 3:13 PM SHEET METAL DUCT INSTALLER HELPER Temperature 36.7 ??C (98.1 ??F) 06/30/2023 3:13 PM CS T Respiratory Rate - - Oxygen Saturation 96% 06/30/2023 3:13 PM SHEET METAL DUCT INSTALLER HELPER Inhaled Oxygen Concentration - - Weight 100.7 kg (222 lb) 06/30/2023 3:13 PM SHEET METAL DUCT INSTALLER HELPER Height 180.3 cm (5' 11 ) 06/30/2023 3:13 PM SHEET METAL DUCT INSTALLER HELPER Body Mass Index 30.96 06/30/2023 3:13 PM SHEET METAL DUCT INSTALLER HELPER Plan of Treatment Not on file Care Teams Machinist Supervisor Relationship Specialty Start Date End Date Dale Saldaña MD PCP - General 03/09/18
--- OUTSIDE RECORDS SUMMARY | 2024-06-12 15:35 | XMS_ITS | Patient Health Summary ---
Author Organization [facility] Address [address] [place] [address] Care Team Providers Care Infantry Operations Specialist Name Role Phone Dale Saldaña MD Primary Care Provider [phone] [facility],non-owned Affiliates and Associated Physician Practices is amultiple site organization consisting of ambulatory clinics and hospital sitesin [place], [place], [place] and [place]. This disclosure is being madepursuant to the Care Everywhere program and may not contain all information available regarding this patient. Last updated 18.[facility] Allergies * Morphine(Nausea and/or Vomiting) -Low Criticality Medications * Be aware that medications may not be up to date on this document. Alwaysverify current medications with the patient. * fluticasone-salmeterol (Advair/Wixela) 250-50 MCG/ACT inhaler Inhale 1 (one) puff by mouth 2 times daily * dilTIAZem coated beads 24hr (Cardizem CD) 180 MG capsule(Started 04/08/2023) Take 1 (one) capsule by mouth once daily * tamsulosin (Flomax) 0.4 MG capsule(Started 05/19/2023) Take 2 (two) capsules by mouth once daily * albuterol HFA (Proventil; Ventolin; Proair) 108 (90 Base) MCG/ACT inhaler Inhale 2 (two) puffs by mouth every 6 hours as needed * apixaban (Eliquis) 5 MG tablet Take 1 (one) tablet by mouth 2 times daily * oxyBUTYnin CR 24hr (Ditropan XL) 15 MG tablet(Started 06/15/2023) Take 1 (one) tablet by mouth * spironolactone (Aldactone) 25 MG tablet(Started 04/25/2023) Take 0.5 (one-half) tablet by mouth once daily * pravastatin (Pravachol) 40 MG tablet(Started 12/19/2022) Take 1 (one) tablet by mouth once daily * finasteride (Proscar) 5 MG tablet(Started 04/08/2023) Take 1 (one) tablet by mouth once daily * metFORMIN (Glucophage) 1000 MG tablet(Started 05/18/2023) Take 1 (one) tablet by mouth 2 times daily Social History Tobacco Use Types Packs/Day Years [...] Comments Blood Pressure 143/85 06/30/2023 3:13 PM VP DIGITAL MARKETING Pulse 82 06/30/2023 3:13 PM VP DIGITAL MARKETING Temperature 36.7 ??C (98.1 ??F) 06/30/2023 3:13 PM CS T Respiratory Rate - - Oxygen Saturation 96% 06/30/2023 3:13 PM VP DIGITAL MARKETING Inhaled Oxygen Concentration - - Weight 100.7 kg (222 lb) 06/30/2023 3:13 PM VP DIGITAL MARKETING Height 180.3 cm (5' 11 ) 06/30/2023 3:13 PM VP DIGITAL MARKETING Body Mass Index 30.96 06/30/2023 3:13 PM VP DIGITAL MARKETING Care Teams Infantry Operations Specialist Relationship Specialty Start Date End Date Dale Saldaña MD PCP - General 03/09/18
--- OUTSIDE RECORDS SUMMARY | 2024-06-12 15:35 | XMS_ITS | Clinical Summary ---
Author Organization [facility] [address] Address [address] [place] [address] Care Team Providers Care Line Clearance Foreman Name Role Phone Jose Nolan MD Primary Care Provider [phone] Allergies Active Allergy Reactions Criticality Noted Date Comments Morphine Nausea And Vomiting Low 06/13/2023 Opioids - Morphine Analogues Nausea & Vomiting Low 06/13/2023 Tolerated fentanyl Medications albuterol HFA (PROVENTIL HFA,VENTOLIN HFA,PROAIR HFA) 90 mcg/actuation inhaler Inhale 2 puffs every 6 (six) hours as needed for wheezing Active metFORMIN (GLUCOPHAGE) 1,000 mg tablet Take 1 tablet (1,000 mg total) by mouth 2 (two) times a day with meals Active apixaban (ELIQUIS) 5 mg tablet Take 1 tablet (5 mg total) by mouth 2 (two) times a day Active tamsulosin (FLOMAX) 0.4 mg extended release capsule Take 1 capsule (0.4 mg total) by mouth nightly Active diltiazem LA (CARDIZEM LA) 180 mg 24 hr tablet Take 1 tablet (180 mg total) by mouth daily Active fluticasone propion-salmete roL (ADVAIR DISKUS) 250-50 mcg/dose diskus inhaler Inhale 1 puff 2 (two) times a day Rinse mouth with water after use. Do not swallow. Active finasteride (PROSCAR) 5 mg tablet Take 1 tablet (5 mg total) by mouth daily Active oxyBUTYnin XL (DITROPAN XL) 15 mg 24 hr tablet Take 1 tablet (15 mg total) by mouth daily Active furosemide (LASIX) 40 mg tablet Take 1 tablet (40 mg total) by mouth 2 (two) times a day Active spironolactone (ALDACTONE) 25 mg tablet Take 1 tablet (25 mg total) by mouth daily Active glipiZIDE XL (GLUCOTROL XL) 2.5 mg 24 hr tablet Take 1 tablet (2.5 mg total) by mouth daily 05/30/2023 Active omega-3 fatty acids-fish oil 300-1,000 mg capsule Take 1 capsule (1 g total) by mouth daily Active glucosamine HCl (GLUCOSAMINE, BULK, MISC) Take 1 tablet by mouth daily Active multivitamin tabletIndicatio ns:Vitamin Deficiency Prevention Take 1 tablet by mouth daily Active magnesium gluconate 200 mg tabletIndicatio ns:hypomagnesem ia Take 1.25 tablets (250 mg total) by mouth daily Active ticagrelor (BRILINTA) 90 mg tablet Take 1 tablet (90 mg total) by mouth 2 (two) times a day 180 tablet 09/01/2023 Active atorvastatin (LIPITOR) 40 mg tablet Take 1 tablet (40 mg total) by mouth nightly 30 tablet 11 09/02/2023 09/02/19 25 Active Active Problems Problem Noted Date Diagnosed Date CAD (coronary artery disease) 09/01/2023 Coronary artery disease with angina pectoris Abnormal stress test 07/14/2023 Surgical History Surgery Date Site/Laterality Comments CARDIAC CATHETERIZATION SPINE SURGERY lumbar spine anterior aproach SPINE SURGERY cervical spine surgery Medical History Medical History Date Comments Sleep apnea Hypertension CAD (coronary artery disease) COPD (chronic obstructive pulmonary disease) (HC C) Chronic kidney disease Type 2 diabetes mellitus (HCC) Back pain Spinal stenosis, lumbar Family History Medical History Relation Name Comments Heart failure Mother Relation Name Status Comments Father Mother Social History Tobacco Use Types Packs/Day Years Used Date Smoking Tobacco: Former Cigarettes Smokeless Tobacco: Never Tobacco Cessation:Counseling Given: No Personal Safety Answer Date Recorded Have you ever been in or are you currently in a harmful physical or emotional relationship or is someone making you feel afraid or unsafe? 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 Gender Identity Not on file Sexual Orientation Not on file Obstetrics History Last Filed Vital Signs Vital Sign Reading Time Taken Comments Blood Pressure 132/73 10/14/2023 2:00 PM CDT Pulse 80 10/14/2023 2:00 PM CDT Temperature 36.6 ??C (97.8 ??F) 10/14/2023 8:35 AM CD T Respiratory Rate 18 10/14/2023 12:15 PM CDT Oxygen Saturation 95% 10/14/2023 2:00 PM CDT Inhaled Oxygen Concentration - - Weight 99.8 kg (220 lb) 10/14/2023 8:35 AM CDT Height 180.3 cm (5' 11 ) 10/14/2023 8:35 AM CDT Body Mass Index 30.68 10/14/2023 8:35 AM CDT Plan of Treatment Health Maintenance Due Date Last Done Comments Depression Screening 1941 DTaP/Tdap/Td Vaccine (1 - Tdap) 1952 Hepatitis B Screening 1959 Well Visit 65+ 2006 Pneumococcal vaccine 65+ (2 of 2 - PCV) 01/22/2023 01/22/2022 Covid-19 Vaccine (4 - 2023-2 5 season) 2024 02/21/2022, 05/26/2021, 09/23/2020 Influenza Vaccine (#1) 2024 , 01/22/2022, 02/12/2021, Additional history exists Fall Risk Assessment 10/13/2024 10/14/2023 Zoster Vaccine Completed 10/05/2022, 01/22/2022 Medical Devices Implanted Type Area Rug Setter [place] Device Identifier Shelf Expiration Date Model / Serial / Lot Medtronic Card Vasc Surgery 2.50 X 34mm [place] Rx Coronary Stent [id number] - [id number] Implanted:Qty: 1 on 09/01/2023 by Hitesh Moreau MD at [facility] Medtronic Card Vasc Surgery 06/17/2026 [id number] / / [id number] [employer] Device Vascular Closure Femoral Artery Bioabsorbable Dual Method Vascade 6-7fr Collagen [id number] - [id number] Implanted:Qty: 1 on 09/01/2023 by Hitesh Moreau MD at [facility] [employer] 03/10/2025 [id number] / / [id number] Medtronic Card Vasc Surgery 3.0 X 30mm [place] Rx Coronary Stent [id number] - [id number] Implanted:Qty: 1 on 10/14/2023 by Hitesh Moreau MD at [facility] Medtronic Card Vasc Surgery 10/13/2025 [id number] / / [id number] Insurance [facility] Member Subscriber Plan / Payer (Ef fective 2022-Present) Name:Christian Villa Relation to Subscriber:Self Name:Christian Villa Payer ID:[id number] (NAIC) Type:MEDICARE RISK OTHER Address: [place] [id number] Care Teams Line Clearance Foreman Relationship Specialty Start Date End Date Jose Nolan MD PCP - General Family Practice 05/31/23
--- OUTSIDE RECORDS SUMMARY | 2024-06-12 15:35 | XMS_ITS | Clinical Summary ---
Author Organization [facility] Address [address] [place] [address] Care Team Providers Care Dean Of Men Name Role Phone Dale Saldaña MD Primary Care Provider [phone] Source Comments [facility],non-owned Affiliates and Associated Physician Practices is amultiple site organization consisting of ambulatory clinics and hospital sitesin [place], [place], [place] and [place]. This disclosure is being madepursuant to the Care Everywhere program and may not contain all information available regarding this patient. Last updated 18.[facility] [employer] Allergies Active Allergy Reactions Criticality Noted Date [...] Comments Blood Pressure 143/85 06/30/2023 3:13 PM MARKETING OPERATIONS ASSOCIATE Pulse 82 06/30/2023 3:13 PM MARKETING OPERATIONS ASSOCIATE Temperature 36.7 ??C (98.1 ??F) 06/30/2023 3:13 PM CS T Respiratory Rate - - Oxygen Saturation 96% 06/30/2023 3:13 PM MARKETING OPERATIONS ASSOCIATE Inhaled Oxygen Concentration - - Weight 100.7 kg (222 lb) 06/30/2023 3:13 PM MARKETING OPERATIONS ASSOCIATE Height 180.3 cm (5' 11 ) 06/30/2023 3:13 PM MARKETING OPERATIONS ASSOCIATE Body Mass Index 30.96 06/30/2023 3:13 PM MARKETING OPERATIONS ASSOCIATE Plan of Treatment Health Maintenance Due Date Last Done Comments DTAP/TDAP/TD VACCINES (1 - Tdap) 1960 PNEUMOCOCCAL VACCINE 50+ (1 of 1 - PCV) 1991 ZOSTER VACCINE (1 of 2) 1991 Respiratory Syncytial Virus (RSV) Vaccine Pt: or over 60 yrs (1 - 1-dose 75+ series) 2016 COVID-19 VACCINE ( - 2023-2 5 season) 2024 INFLUENZA VACCINE (#1) 2024 DEPRESSION SCREENING 05/16/2024 MEDICARE AWV ? CALENDAR YEAR 2024 HEPATITIS B VACCINE Aged Out No longe r eligible based on patient's age to complete this topic HIB VACCINE Aged Out No longer eligi ble based on patient's age to complete this topic HPV VACCINE Aged Out No longer eligi ble based on patient's age to complete this topic MENINGOCOCCAL (Group B) VACCINE Aged Out No longer eligible based on patient's age to complete this topic MENINGOCOCCAL VACCINE Aged Out No silvestre julianne eligible based on patient's age to complete this topic Care Teams Dean Of Men Relationship Specialty Start Date End Date Dale Saldaña MD PCP - General 03/09/18
--- OUTSIDE RECORDS SUMMARY | 2024-06-12 15:35 | XMS_ITS | Referral Summary ---
Author Organization 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 [employer] Gender Identity Not on file Sexual Orientation [...] 10/14/2023 8:35 AM CDT Plan of Treatment Not on file Medical Devices Implanted Type Area Automated Process Operator Device Identifier Shelf Expiration Date Model / Serial / Lot Medtronic [facility] Vasc Surgery 2.50 X 34mm [place] Rx Coronary Stent [id number] - [id number] Implanted:Qty: 1 on 09/01/2023 [facility] 06/17/2026 [id number] / / [id number] [employer] Device Vascular Closure Femoral Artery Bioabsorbable Dual Method Vascade 6-7fr Collagen [id number] - [id number] Implanted:Qty: 1 on 09/01/2023 by Hitesh Moreau MD at [facility] [employer] 03/10/2025 [id number]-0 [id number] / / [id number] Medtronic [facility] Vasc Surgery 3.0 X 30mm [place] Rx Coronary Stent [id number] - [id number] Implanted:Qty: 1 on 10/14/2023 by [facility] 10/13/2025 [id number] / / [id number] Insurance [facility] Care Teams Highway Maintainer Relationship Specialty Start Date End Date Jose Nolan MD PCP - General Family Practice 05/31/23
[2024-06-12 20:38] LABS: Add Urine Microscopic? YES; Appearance Urine Turbid (Clear); Bacteria Urine 4+ /hpf; Bilirubin Urine Negative (Negative); Blood Urine Negative (Negative); Color Urine Dark Yellow (Yellow); Glucose Urine UA Negative (Negative); Ketones Urine Negative (Negative); Leukocyte Esterase Ur 3+ LEU/UL (Negative); Need Manual Microscopic Reviewed; Nitrate Urine Positive (Negative); Protein Urine 2+ mg/dL (Negative); RBC Urine 0-2 /hpf (0-2); Squamous Epithelial Cell Urine Moderate /hpf (Few); Uric Acid Crystals Urine Present /hpf; WBC Urine 51-100 /hpf (0-3); pH Urine >=9.0 (5.0-9.0)
[2024-06-12 20:39] LABS: Amorphous Sediment Urine Moderate
== END 2024-06-12 15:06 | disposition home or self-care (01) ==
LOC: HOME HLTH 15:06
PROVIDERS: PCP Nurse Practitioner Family; Visit Provider Nurse Practitioner Family
DX: R30.0 Dysuria (principal)
CPT/HCPCS: 81001; 87086; 87186

== ENCOUNTER 2024-07-09 10:55 | Inpatient (IN) | payer OTHER, SELFPAY ==
[2024-07-09] VITALS (33 sets, daily range): BP systolic 112–154; BP diastolic 53–101; PULSE 76–118; RESP 13–22; TEMP 36.4–36.7; O2SAT 95–100; BMI 27.5
--- NOTE | ~2024-07-09 | CT_ITS ---
EXAMINATION: CT abdomen pelvis w con DATE: 07/09/2024 12:56 INDICATION: Lower gastrointestinal bleed. TECHNIQUE: Computed tomography (CT) of the abdomen and pelvis was performed with 100 mL Omnipaque 350 intravenous contrast. Automated exposure control and iterative reconstruction technique were employe d. The dose-length product was 927.38 mGy-cm. COMPARISON: None. FINDINGS: The visualized portions of the lung bases demonstrate mild atelectasis. There is bronchiect asis and honeycombing bilaterally. There is a 5 mm nodule in right lower lobe, likely benign. There i s a small left pleural effusion. The heart size is normal. There are coronary artery calcifications. No pericardial effusion. The liver, gallbladder, pancreas, and adrenal glands are normal. Calcificati ons in the spleen are consistent with old granulomatous disease. There are cysts in the kidneys measu ring up to 2.5 cm on the left. There is a 2.3 cm mass in left kidney. There is a 7 mm stone in left k idney. The prostate is mildly enlarged. There are bilateral inguinal hernias containing fat. There is diverticulosis of the colon without evidence of diverticulitis. The appendix is normal. Bowel malrot ation is noted. There are no pathologically enlarged lymph nodes. There is no free intraperitoneal fl uid. There is calcified atherosclerosis of the aorta and many of the other arteries. There are change s of anterior fusion procedure at L5-S1. There is severe lumbar spondylosis. There are bridging endpl ate osteophytes at multiple levels in the thoracic spine, consistent with diffuse idiopathic skeletal hyperostosis (DISH). IMPRESSION: 1. 2.3 cm mass in left kidney, most likely a hemorrhagic cyst, but neoplasm cannot be excluded. Consi newton abdomen CT without and with contrast. 2. Small left pleural effusion. 3. Chronic interstitial lung disease. Reviewed, dictated and finalized at location A. AM CONTROL OFFICER IMPRESSION: 1. 2.3 cm mass in left kidney, most likely a hemorrhagic cyst, but neoplasm can not be excluded. Consider abdomen CT without and with contrast. 2. Small left pleural effusion. 3. Chronic interstitial lung disease.
--- NOTE | 2024-07-09 11:38 | ED_ITS ---
HPI - General Adult General Chief complaint: GI Bleed Stated complaint: GI bleed Time Seen by Provider: 07/09/24 11:22 History of Present Illness HPI narrative: 84-year-old male presenting emergency department for evaluation for bright red blood per rectum. Patient states symptoms started on Tuesday. Patient does have a cardiac history and does take both Eliquis and clopidogrel. Patient states he started having the bleeding on Tuesday, patient states that the last time he took his Eliquis and clopidogrel was last night. Last colonoscopy I see on file was November of 2022. Multiple large size uncomplicated hemorrhoids were seen in the rectum. The hemorrhoids were not actively bleeding. Few medium diverticula and were present in the sigmoid colon. Diverticula were not actively bleeding. Colonoscopy in 2019 did show diverticulosis and internal hemorrhoids Related Data Home Medications ?Medication ?Instructions ?Recorded ?Confirmed ?Last Taken ?Type multivit with minerals-iron 18 1 tablet PO DAILY 12/10/21 07/09/24 07/08/24 History mg-folic ac 400 mcg-vit K 25 mcg tablet (Adults Multivitamin) vitamin B complex (B 1 tablet PO DAILY 12/10/21 07/09/24 07/08/24 History Complex-Vitamin B12 tablet) atorvastatin 40 mg tablet 40 mg PO QPM 10/21/23 07/09/24 07/08/24 History omega-3 fatty acids 1,000 mg PO DAILY 04/09/24 07/09/24 07/08/24 History apixaban 5 mg tablet (Eliquis) 5 mg PO Q12H 05/02/24 07/09/24 07/08/24 History diltiazem HCl 180 mg 180 mg PO Q24H 05/02/24 07/09/24 07/08/24 History capsule,extended release 24 hr furosemide 40 mg tablet 40 mg PO DAILY 05/02/24 07/09/24 Unknown History Allergies Allergy/AdvReac Type Severity Reaction Status Date / Time Opioids - Morphine Analogues AdvReac Intermediate Nausea and Verified 07/09/24 15:39 Vomiting Review of Systems 2 Review of Systems: All systems reviewed & are unremarkable except as noted in HPI and below PMFSH Past Medical History Medical History Knee pain Lumbosacral stenosis with neurogenic claudication With epidural steroid injection L4-L5 December 2022 Mild cognitive impairment COPD with asthma Lumbosacral radiculopathy Claudication of both lower extremities Dorsalgia Postlaminectomy syndrome Lumbosacral spondylosis Brain mass Long COVID Atrial fibrillation ANEUDY (obstructive sleep apnea) Does not tolerate CPAP BPH (benign prostatic hyperplasia) Hyperlipidemia Benign non-nodular prostatic hyperplasia without lower urinary tract symptoms Essential hypertension Mixed hyperlipidemia ANEUDY (obstructive sleep apnea) Not on CPAP Type 2 diabetes mellitus with diabetic polyneuropathy Surgical History Surgical History History of cardiac catheterization 03/2023 demonstrated multivessel coronary disease to 80% stenosis of the proximal LAD 70% stenosis midportion of LAD very small diagonal branch, proximal and mid left circ have luminal irregularities 90% long stenosis left circumflex, small caliber obtuse marginal branch with mild diffuse disease obtuse marginal 2 has a moderate stenosis of the midportion right coronary artery is dominant vessel with 90% stenosis of the midportion and mid RPDA has 2 tandem stenosis is of 60-70% the patient was referred for CV surgery however the patient then underwent staged procedure at [facility] with PCI and stent to mid distal left circ and in September 2023 he had a PCI to the mid RCA History of back surgery Lumbar fusion History of cataract surgery Family History Family History Sibling Patient's sister is in good health Patient's brother is in good health Father Heart disease Acute myocardial infarction Mother Acute myocardial infarction Social History Social History Social History: He lives in [place] with his of 63 years. 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 He quit smoking over 53 years ago. He only had a 15 pack per year smoking history. He denies any alcohol or illicit substance use. Code status: DNR/DNI (per patient request) He surrogate decision maker: Smoking packs per day: 0.5 Smoking cigarettes per day: 10.0 Years smoked: 2 Smoking pack-years: 1.00 Smoking status: Former smoker Tobacco type: cigarettes and cigars Second hand tobacco smoke exposure: No Smoking end date: [birth year]/16/1950 Alcohol intake: never Substance use: never Substance use type: does not use Do You Feel Safe in your Home?: Yes Lack of Transportation: No Lack of Food: Never True Current Housing: I Have Housing Concerned About Future Housing: No Difficulty Paying Gas/Electric Bills: No Difficulty Paying for Meds: No Currently Unemployed: No Education: Grade School Difficulty w/ Childcare or Family Care: No Living arrangements: with family Gender identity (if verbalized by the patient): Male Sexual Orientation (if Verbalized by the Patient): Straight or Heterosexual Spiritual care concerns: No Exam 2 Narrative: APPEARANCE: Well appearing, no pain, no distress, well-nourished. HEAD: normocephalic, atraumatic. EYES: PERRLA/EOMI, conjunctivae clear. NOSE: Normal no drainage EARS:TMS clear with good light reflex. THROAT: Pharynx clear, no exudate. NECK: Supple. No adenopathy, no masses. RESPIRATORY: Airway patent, respirations nonlabored. Clear to auscultation bilaterally, no rales, rhonchi, wheezing. CARDIOVASCULAR: Regular rate and rhythm without murmurs rubs or gallops. ABDOMINAL: Soft, nontender, nondistended, normal bowel sounds MUSCULOSKELETAL: Moves all extremities. Strength/ROM intact, No edema, No calf tenderness. NEURO: Alert. Cranial nerves II through XII intact. Good gait. Good coordination SKIN: Warm, dry. Normal Color Rectal exam: Bright red blood on the digital rectal exam Course Vital Signs Vital signs: Vital Signs Pulse Rate 118 H 07/09/24 11:18 Respiratory Rate 14 07/09/24 11:18 Pulse Oximetry 96 07/09/24 11:18 Temperature 97.7 F 07/09/24 15:34 Pulse Rate 89 07/09/24 15:34 Respiratory Rate 18 07/09/24 15:34 Blood Pressure 134/72 07/09/24 15:34 Pulse Oximetry 100 07/09/24 15:34 Oxygen Delivery Room Air 07/09/24 15:39 Medical Decision Making MDM Narrative Medical decision making narrative: 84-year-old male present to the emergency department for evaluation for lower GI bleed. Patient is on Xarelto and clopidogrel. Patient does have previous colonoscopy showing internal hemorrhoids and diverticula. Patient is currently afebrile but does have a white blood cell count 11.2 and hemoglobin of 7.8. Patient's previous hemoglobins were in the 14 range around April. Patient was Hemoccult positive on the did a rectal exam. CT scan was ordered and showed no active extravasation. GI was consulted and they will see the patient as consult. I discussed the case with the hospitalist and they were accepted for admission to [facility] Differential Diagnosis Differential Diagnosis: Bleed diverticuli, internal hemorrhoids, a 50 IV tolerated Vital Signs Vital Signs: Vital Signs Pulse Rate 118 H 07/09/24 11:18 Respiratory Rate 14 07/09/24 11:18 Pulse Oximetry 96 07/09/24 11:18 Temperature 97.7 F 07/09/24 15:34 Pulse Rate 89 07/09/24 15:34 Respiratory Rate 18 07/09/24 15:34 Blood Pressure 134/72 07/09/24 15:34 Pulse Oximetry 100 07/09/24 15:34 Oxygen Delivery Room Air 07/09/24 15:39 Lab Data Lab results reviewed: Yes I reviewed the patient's lab results. 07/09/24 16:26 07/09/24 11:43 Labs: Lab Results 07/09/24 07/09/24 07/09/24 Range/Units 11:43 11:44 11:45 WBC 11.2 H (4.5-10.0) K/mm3 RBC 2.49 L (4.6-6.20) M/mm3 Hgb 7.8 L D (14.0-18.0) g/dL Hct 25.0 L (42.0-52.0) % MCV 100.4 H (80-100) fl MCH 31.3 (26-34) pg MCHC 31.2 L (32-36) g/dl RDW 17.4 H (11.5-14.5) % Plt Count 267 (150-375) k/mm3 MPV 9.8 (7.4-10.4) fl Immature Gran % (Auto) 0.9 H (0-0.5) % Neut % (Auto) 60.5 (45.5-73.1) % Lymph % (Auto) 31.4 (18.3-44.2) % [place] % (Auto) 6.4 (2.6-8.5) % Eos % (Auto) 0.4 (0-4.4) % Baso % (Auto) 0.4 (0.2-1.2) % Lymph # (Auto) 3.51 H (0.9-3.2) K/mm3 [place] # (Auto) 0.7 H (0.1-0.6) K/mm3 Eos # (Auto) 0.0 (0-0.3) K/mm3 Baso # (Auto) 0.0 (0.0-0.1) K/mm3 Abs Immat Gran (auto) 0.10 H (0.00-0.031) K/mm3 Absolute Neuts (auto) 6.8 H (1.3-6.7) K/mm3 Absolute Nucleated RBC 0.030 H (0.0-0.012) K/mm3 Nucleated RBC % 0.3 H (0.0-0.2) % PT 16.5 H (11.1-14.7) Seconds INR 1.3 APTT 28.9 (22.3-36.8) Seconds Sodium 139 (137-145) mmol/L Potassium 4.3 (3.4-5.0) mmol/L Chloride 110 H (98-107) mmol/L Carbon Dioxide 18 L (22-30) mmol/L Anion Gap 11 (4-12) mmol/L BUN 41 H D (9-20) mg/dL Creatinine 1.27 (0.7-1.3) mg/dL Estim Creat Clear Calc 42 ml/min Estimated GFR 54 L (59 - ) Glucose 173 H (65-110) mg/dL Calcium 8.5 (8.4-10.2) mg/dL Total Bilirubin 0.5 (0.2-1.3) mg/dL AST 18 (17-59) U/L ALT 17 (6-50) U/L Alkaline Phosphatase 26 L (38-126) U/L Total Protein 5.0 L (6.3-8.2) g/dL Albumin 2.8 L (3.5-5.1) g/dL Blood Type A Positive Antibody Screen Negative Imaging Data Radiologist's impression: Impressions Abdomen/Pelvis CT 07/09/24 12:57 IMPRESSION: 1. 2.3 cm mass in left kidney, most likely a hemorrhagic cyst, but neoplasm cannot be excluded. Consider abdomen CT without and with contrast. 2. Small left pleural effusion. 3. Chronic interstitial lung disease. Discharge Plan Discharge Clinical Impression: Acute lower GI bleeding Patient Disposition: Still a Patient Condition: Stable
[2024-07-09 11:54] LABS: Basophils Percent Auto 0.4 % (0.2-1.2); Eosinophils Percent Auto 0.4 % (0-4.4); Hemoglobin 7.8 g/dL (14.0-18.0); Immature Granulocyte Percent A 0.9 % (0-0.5); Lymphocytes Absolute Auto 3.51 K/mm3 (0.9-3.2); Lymphocytes Percent Auto 31.4 % (18.3-44.2); Mean Corpuscular HGB Conc 31.2 g/dl (32-36); Mean Corpuscular Hemoglobin 31.3 pg (26-34); Mean Corpuscular Volume 100.4 fl (80-100); Mean Platelet Volume 9.8 fl (7.4-10.4); Monocytes Absolute Auto 0.7 K/mm3 (0.1-0.6); Monocytes Percent Auto 6.4 % (2.6-8.5); Neutrophils Absolute Auto 6.8 K/mm3 (1.3-6.7); Neutrophils Percent Auto 60.5 % (45.5-73.1); Nucleated Red Blood Cells Perc 0.3 % (0.0-0.2); Platelet Count Result 267 k/mm3 (150-375); Red Blood Count 2.49 M/mm3 (4.6-6.20); Red Cell Distribution Width 17.4 % (11.5-14.5); White Blood Count 11.2 K/mm3 (4.5-10.0)
[2024-07-09 12:06] LABS: Alanine Aminotransferase 17 U/L (6-50); Albumin Level 2.8 g/dL (3.5-5.1); Alkaline Phosphatase 26 U/L (38-126); Anion Gap 11 mmol/L (4-12); Aspartate Amino Transferase 18 U/L (17-59); Bilirubin,Total 0.5 mg/dL (0.2-1.3); Blood Urea Nitrogen 41 mg/dL (9-20); Calcium 8.5 mg/dL (8.4-10.2); Carbon Dioxide 18 mmol/L (22-30); Chloride 110 mmol/L (98-107); Estimated CRCL calculation 42 ml/min; Estimated Glomerular Filt Rate 54; Glucose 173 mg/dL (65-110); Potassium 4.3 mmol/L (3.4-5.0); Sodium 139 mmol/L (137-145)
[2024-07-09 12:12] LABS: INR 1.3; Partial Thromboplastin Time 28.9 Seconds (22.3-36.8); Prothrombin Time 16.5 Seconds (11.1-14.7)
--- OUTSIDE RECORDS SUMMARY | 2024-07-09 12:38 | XMS_ITS | Referral Summary ---
Author Organization [facility] Address [address] [place] [address] Care Team Providers Care Manager Client Service Name Role Phone Dale Saldaña MD Primary Care Provider [phone] Source Comments [facility],non-owned Affiliates and Associated Physician Practices is amultiple site organization consisting of ambulatory clinics and hospital sitesin [place], [place], [place] and [place]. This disclosure is being madepursuant to the Care Everywhere program and may not contain all information available regarding this patient. Last updated 18.[facility] Commutable Allergies Active Allergy Reactions Criticality Noted Date [...] Comments Blood Pressure 143/85 06/30/2023 3:13 PM CUTTER MACHINE TENDER Pulse 82 06/30/2023 3:13 PM CUTTER MACHINE TENDER Temperature 36.7 C (98.1 F) 06/30/2023 3:13 PM CUTTER MACHINE TENDER Respiratory Rate - - Oxygen Saturation 96% 06/30/2023 3:13 PM CUTTER MACHINE TENDER Inhaled Oxygen Concentration - - Weight 100.7 kg (222 lb) 06/30/2023 3:13 PM CUTTER MACHINE TENDER Height 180.3 cm (5' 11 ) 06/30/2023 3:13 PM CUTTER MACHINE TENDER Body Mass Index 30.96 06/30/2023 3:13 PM CUTTER MACHINE TENDER Plan of Treatment Not on file Care Teams Manager Client Service Relationship Specialty Start Date End Date Dale Saldaña MD PCP - General 03/09/18
--- OUTSIDE RECORDS SUMMARY | 2024-07-09 12:38 | XMS_ITS | Clinical Summary ---
Author Organization [facility] Address [address] [place] [address] Care Team Providers Care Deflash And Wash Operator Name Role Phone Dale Saldaña MD Primary Care Provider [phone] Source Comments [facility],non-owned Affiliates and Associated Physician Practices is amultiple site organization consisting of ambulatory clinics and hospital sitesin [place], [place], [place] and [place]. This disclosure is being madepursuant to the Care Everywhere program and may not contain all information available regarding this patient. Last updated 18.[facility] Carmine Allergies Active Allergy Reactions Criticality Noted Date [...] Comments Blood Pressure 143/85 06/30/2023 3:13 PM [employer]HA[employer] WEAPON SYSTEM OPERATOR Pulse 82 06/30/2023 3:13 PM TOMAHAWK WEAPON SYSTEM OPERATOR Temperature 36.7 C (98.1 F) 06/30/2023 3:13 PM TOMAHAWK WEAPON SYSTEM OPERATOR Respiratory Rate - - Oxygen Saturation 96% 06/30/2023 3:13 PM TOMAHAWK WEAPON SYSTEM OPERATOR Inhaled Oxygen Concentration - - Weight 100.7 kg (222 lb) 06/30/2023 3:13 PM TOMAHAWK WEAPON SYSTEM OPERATOR Height 180.3 cm (5' 11 ) 06/30/2023 3:13 PM [employer]OMAHAWK WEAPON SYSTEM OPERATOR Body Mass Index 30.96 06/30/2023 3:13 PM [employer]OMAHAWK WEAP[employer] SYSTEM OPERATOR Plan of Treatment Health Maintenance Due Date [...] (#1) 2024 DEPRESSION SCREENING 05/16/2024 MEDICARE AWV CALENDAR YEAR 2024 HEPATITIS B VACCINE Aged [...] age to complete this topic Care Teams Deflash And Wash Operator Relationship Specialty Start Date End Date Dale Saldaña MD PCP - General 03/09/18
--- OUTSIDE RECORDS SUMMARY | 2024-07-09 12:38 | XMS_ITS | Patient Health Summary ---
Author Organization [facility] Address [address] [place] [address] Care Team Providers Care Emd Special Education Teacher Name Role Phone Dale Saldaña MD Primary Care Provider [phone] Note from [facility],non-owned Affiliates and Associated Physician Practices is amultiple site organization consisting of ambulatory clinics and hospital sitesin [place], [place], [place] and [place]. This disclosure is being madepursuant to the Care Everywhere program and may not contain all information available regarding this patient. Last updated 18.[facility] Allergies * Morphine(Nausea and/or Vomiting) -Low [...] Comments Blood Pressure 143/85 06/30/2023 3:13 PM CLAY CARMAN Pulse 82 06/30/2023 3:13 PM CLAY CARMAN Temperature 36.7 C (98.1 F) 06/30/2023 3:13 PM CLAY CARMAN Respiratory Rate - - Oxygen Saturation 96% 06/30/2023 3:13 PM CLAY CARMAN Inhaled Oxygen Concentration - - Weight 100.7 kg (222 lb) 06/30/2023 3:13 PM CLAY CARMAN Height 180.3 cm (5' 11 ) 06/30/2023 3:13 PM CLAY CARMAN Body Mass Index 30.96 06/30/2023 3:13 PM CLAY CARMAN Care Teams Emd Special Education Teacher Relationship Specialty Start Date End Date Dale Saldaña MD PCP - General 03/09/18
--- OUTSIDE RECORDS SUMMARY | 2024-07-09 12:38 | XMS_ITS | Referral Summary ---
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 Gender Identity Not on file Sexual Orientation Not on file Last Filed Vital Signs Vital Sign Reading Time Taken Comments Blood Pressure 132/73 10/14/2023 2:00 PM CDT Pulse 80 10/14/2023 2:00 PM CDT Temperature 36.6 C (97.8 F) 10/14/2023 8:35 AM CDT Respiratory Rate 18 10/14/2023 12:15 PM CDT Oxygen Saturation 95% 10/14/2023 2:00 PM CDT Inhaled Oxygen Concentration - - Weight 99.8 kg (220 lb) 10/14/2023 8:35 AM CDT Height 180.3 cm (5' 11 ) 10/14/2023 8:35 AM CDT Body Mass Index 30.68 10/14/2023 8:35 AM CDT Plan of Treatment Not on file Medical Devices Implanted Type Area Waterproofer Helper Device Identifier Shelf Expiration Date Model / Serial / Lot [facility] Vasc Surgery 2.50 X 34mm [place] Rx Coronary Stent [id number] - [id number] Implanted:Qty: 1 on 09/01/2023 [facility] 06/17/2026 [id number] / / [id number] [employer] [facility] Device Vascular Closure Femoral Artery Bioabsorbable Dual Method Vascade 6-7fr Collagen [id number] - [id number] Implanted:Qty: 1 on 09/01/2023 by Hitesh Moreau MD at [facility] [employer] 03/10/2025 700-580I-0 5U / / [id number] Medtronic [facility] Vasc Surgery 3.0 X 30mm [place] Rx Coronary Stent [id number] - [id number] Implanted:Qty: 1 on 10/14/2023 [facility] 10/13/2025 [id number] / / [id number] [facility] Care Teams Dialysis Patient Care Technician Relationship Specialty Start Date End Date Jose Nolan MD PCP - General Family Practice 05/31/23
--- OUTSIDE RECORDS SUMMARY | 2024-07-09 12:38 | XMS_ITS | Clinical Summary ---
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 Medtronic Card Vasc Surgery 06/17/2026 [id number] / / [id number] [employer] Device Vascular Closure Femoral Artery Bioabsorbable Dual Method Vascade 6-7fr Collagen [id number] - [id number] Implanted:Qty: 1 on 09/01/2023 by Hitesh Moreau MD at [facility] [employer] 03/10/2025 700-580I-0 5U / / [id number] Medtronic Card Vasc Surgery 3.0 X 30mm [place] Rx Coronary Stent [id number] - [id number] Implanted:Qty: 1 on 10/14/2023 by Hitesh Moreau MD at [facility] Medtronic Card Vasc Surgery 10/13/2025 [id number] / / [id number] Insurance [facility] Care Teams Emergency Room Physician Assistant Relationship Specialty Start Date End Date Jose Nolan MD PCP - General Family Practice 05/31/23
--- OUTSIDE RECORDS SUMMARY | 2024-07-09 13:33 | XMS_ITS | Referral Summary ---
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 Vasc Surgery 2.50 X 34mm [place] Rx Coronary Stent [id number] - [id number] Implanted:Qty: 1 on 09/01/2023 by [facility] Vasc Surgery 06/17/2026 [id number] / / [id number] [employer] [facility] Device Vascular Closure Femoral Artery Bioabsorbable Dual Method Vascade 6-7fr Collagen [id number] - [id number] Implanted:Qty: 1 on 09/01/2023 by Hitesh Moreau MD at [facility] [employer] 03/10/2025 700-580I-0 5U / / [id number] Medtronic [facility] Vasc Surgery 3.0 X 30mm [place] Rx Coronary Stent [id number] - [id number] Implanted:Qty: 1 on 10/14/2023 by [facility] Vasc Surgery 10/13/2025 [id number] / / [id number] Insurance [facility] Care Teams Assembler And Tester Electronics Relationship Specialty Start Date End Date Jose Nolan MD PCP - General Family Practice 05/31/23
--- OUTSIDE RECORDS SUMMARY | 2024-07-09 13:33 | XMS_ITS | Patient Health Summary ---
Author Organization [facility] Address [address] [place] [address] Care Team Providers Care Service Porter Name Role Phone Dale Saldaña MD Primary Care Provider [phone] Note from [facility],non-owned Affiliates and Associated Physician Practices is amultiple site organization consisting of ambulatory clinics and hospital sitesin [place], [place], [place] and [place]. This disclosure is being madepursuant to the Care Everywhere program and may not contain all information available regarding this patient. Last updated 18.[facility] Allergies * Morphine(Nausea and/or Vomiting) -Low [...] Comments Blood Pressure 143/85 06/30/2023 3:13 PM SURGEON PARTNER Pulse 82 06/30/2023 3:13 PM SURGEON PARTNER Temperature 36.7 C (98.1 F) 06/30/2023 3:13 PM SURGEON PARTNER Respiratory Rate - - Oxygen Saturation 96% 06/30/2023 3:13 PM SURGEON PARTNER Inhaled Oxygen Concentration - - Weight 100.7 kg (222 lb) 06/30/2023 3:13 PM SURGEON PARTNER Height 180.3 cm (5' 11 ) 06/30/2023 3:13 PM SURGEON PARTNER Body Mass Index 30.96 06/30/2023 3:13 PM SURGEON PARTNER Care Teams Service Porter Relationship Specialty Start Date End Date Dale Saldaña MD PCP - General 03/09/18
--- OUTSIDE RECORDS SUMMARY | 2024-07-09 13:33 | XMS_ITS | Referral Summary ---
Author Organization [facility] Address [address] [place] [address] Care Team Providers Care Financial Health Counselor Name Role Phone Dale Saldaña MD Primary Care Provider [phone] Source Comments [facility],non-owned Affiliates and Associated Physician Practices is amultiple site organization consisting of ambulatory clinics and hospital sitesin [place], [place], [place] and [place]. This disclosure is being madepursuant to the Care Everywhere program and may not contain all information available regarding this patient. Last updated 18.[facility] Service at Home Allergies Active Allergy Reactions Criticality Noted Date [...] Comments Blood Pressure 143/85 06/30/2023 3:13 PM DRUG REGULATORY AFFAIRS SPECIALIST Pulse 82 06/30/2023 3:13 PM DRUG REGULATORY AFFAIRS SPECIALIST Temperature 36.7 C (98.1 F) 06/30/2023 3:13 PM DRUG REGULATORY AFFAIRS SPECIALIST Respiratory Rate - - Oxygen Saturation 96% 06/30/2023 3:13 PM DRUG REGULATORY AFFAIRS SPECIALIST Inhaled Oxygen Concentration - - Weight 100.7 kg (222 lb) 06/30/2023 3:13 PM DRUG REGULATORY AFFAIRS SPECIALIST Height 180.3 cm (5' 11 ) 06/30/2023 3:13 PM DRUG REGULATORY AFFAIRS SPECIALIST Body Mass Index 30.96 06/30/2023 3:13 PM DRUG REGULATORY AFFAIRS SPECIALIST Plan of Treatment Not on file Care Teams Financial Health Counselor Relationship Specialty Start Date End Date Dale Saldaña MD PCP - General 03/09/18
--- OUTSIDE RECORDS SUMMARY | 2024-07-09 13:33 | XMS_ITS | Clinical Summary ---
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 Gender Identity Not on file Sexual Orientation [...] 10/05/2022, 01/22/2022 Medical Devices Implanted Type Area Saturator Operator Device Identifier Shelf Expiration Date Model / Serial / Lot Medtronic Card Vasc Surgery 2.50 X 34mm [place] Rx Coronary Stent [id number] - [id number] Implanted:Qty: 1 on 09/01/2023 by Hitesh Moreau MD at [facility] Medtronic Card Vasc Surgery 06/17/2026 [id number] / / [id number] [employer] Device Vascular Closure Femoral Artery Bioabsorbable Dual Method Vascade 6-7fr Collagen [id number] - [id number] Implanted:Qty: 1 on 09/01/2023 by Hitesh Moreau MD at [facility] [employer] 03/10/2025 [id number] / / [id number] Medtronic Card Vasc Surgery 3.0 X 30mm [place] Rx Coronary Stent [id number] - [id number] Implanted:Qty: 1 on 10/14/2023 by Hitesh Moreau MD at [facility] Medtronic Card Vasc Surgery 10/13/2025 [id number] / / [id number] Insurance [facility] Care Teams Manufacturing Test Technician Relationship Specialty Start Date End Date Jose Nolan MD PCP - General Family Practice 05/31/23
--- OUTSIDE RECORDS SUMMARY | 2024-07-09 13:33 | XMS_ITS | Clinical Summary ---
Author Organization [facility] Address [address] [place] [address] Care Team Providers Care Risk Management Internship Name Role Phone Dale Saldaña MD Primary Care Provider [phone] Source Comments [facility],non-owned Affiliates and Associated Physician Practices is amultiple site organization consisting of ambulatory clinics and hospital sitesin [place], [place], [place] and [place]. This disclosure is being madepursuant to the Care Everywhere program and may not contain all information available regarding this patient. 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 Pulse 82 06/30/2023 3:13 PM IT SOLUTIONS SALES CONSULTANT Temperature 36.7 C (98.1 F) 06/30/2023 3:13 PM IT SOLUTIONS SALES CONSULTANT Respiratory Rate - - Oxygen Saturation 96% 06/30/2023 3:13 PM IT SOLUTIONS SALES CONSULTANT Inhaled Oxygen Concentration - - Weight 100.7 kg (222 lb) 06/30/2023 3:13 PM IT SOLUTIONS SALES CONSULTANT Height 180.3 cm (5' 11 ) 06/30/2023 3:13 PM IT SOLUTIONS SALES CONSULTANT Body Mass Index 30.96 06/30/2023 3:13 PM IT SOLUTIONS SALES CONSULTANT Plan of Treatment Health Maintenance Due Date [...] age to complete this topic Care Teams Risk Management Internship Relationship Specialty Start Date End Date Dale Saldaña MD PCP - General 03/09/18
--- NOTE | 2024-07-09 13:36 | PM.IMHP ---
H&P: HPI History of Present Illness Date/Time: 07/09/24 14:00 Chief Complaint: Rectal bleeding. Narrative: This is an 84-year-old male with paroxysmal atrial fibrillation on chronic anticoagulation, coronary artery disease, hypertension, hyperlipidemia, type 2 diabetes mellitus, chronic obstructive pulmonary disease, untreated obstructive sleep apnea, benign prostatic hyperplasia, chronic kidney disease, and arthritis who presented to the emergency department for evaluation of rectal bleeding. The patient provides the following history. He noticed bright red blood in his stools on Tuesday and he reports having several bloody stool since that time. At times he does feel constipated in admits that he will occasionally strain to have a bowel movement but denies having issues with that recently. With further questioning he does admit that he has been more tired and weak over the past couple of weeks. He is not having any pain in his abdomen or rectum and denies tenesmus. He also denies epigastric pain, indigestion, bloating, belching, hematemesis, melena, chest pain, shortness of breath, syncope, and near syncope. Colonoscopy in the past had shown large uncomplicated hemorrhoids and medium diverticuli. Last dose of apixaban and clopidogrel was last evening. In the ED: Vital signs were stable on arrival. Labs are significant for WBC count of 11.2, hemoglobin 7.8, MCV 100.4, platelet 267, INR 1.3, BUN 41, creatinine 1.27, glucose 173, total protein 5.0, albumin 2.8. CT of the abdomen and pelvis showed a 2.3 cm mass in the left kidney, likely hemorrhagic cyst, chronic interstitial lung disease, and small left pleural effusion. He is being admitted in this setting for close monitoring and GI consultation. Review of Systems Review of Systems: 12 systems were reviewed and are negative except for as per HPI. [facility] Past Medical History Medical History Chronic kidney disease, stage 3 Chronic anticoagulation Cerebral cavernoma Dorsalgia Obstructive sleep apnea intolerant to CPAP Lumbosacral stenosis with neurogenic claudication with epidural steroid injection L4-L5 December 2022 Mild cognitive impairment COPD with asthma Lumbosacral radiculopathy Claudication of both lower extremities Postlaminectomy syndrome Lumbosacral spondylosis Long COVID Atrial fibrillation Benign non-nodular prostatic hyperplasia without lower urinary tract symptoms Essential hypertension 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 Surgical History Surgical History History of cardiac catheterization (03/2023) multivessel coronary disease to 80% stenosis of the proximal LAD 70% stenosis midportion of LAD very small diagonal branch, proximal and mid left circ have luminal irregularities 90% long stenosis left circumflex, small caliber obtuse marginal branch with mild diffuse disease obtuse marginal 2 has a moderate stenosis of the midportion right coronary artery is dominant vessel with 90% stenosis of the midportion and mid RPDA has 2 tandem stenosis is of 60-70% the patient was referred for CV surgery however the patient then underwent staged procedure at [facility] with PCI and stent to mid distal left circ and in September 2023 he had a PCI to the mid RCA History of back surgery Lumbar fusion History of cataract surgery Family History Family History Sibling Patient's sister is in good health Patient's brother is in good health Father Heart disease Acute myocardial infarction Mother Acute myocardial infarction Social History Social History Social History: Surrogate medical decision maker: Genoveva Villa, spouse. Code status: DO NOT RESUSCITATE. Smoking packs per day: 0.5 Smoking cigarettes per day: 10.0 Years smoked: 2 Smoking pack-years: 1.00 Smoking status: Former smoker Tobacco type: cigarettes and cigars Second hand tobacco smoke exposure: No Smoking end date: 05/16/1950 Alcohol intake: never Substance use: never Substance use type: does not use Do You Feel Safe in your Home?: Yes Lack of Transportation: No Lack of Food: Never True Current Housing: I Have Housing Concerned About Future Housing: No Difficulty Paying Gas/Electric Bills: No Difficulty Paying for Meds: No Currently Unemployed: No Education: Grade School Difficulty w/ Childcare or Family Care: No Living arrangements: with family Additional living arrangements comments: Lives with in [place]. 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 Spiritual care concerns: No Meds Home Medications and Allergies Home Medications ?Medication ?Instructions ?Recorded ?Confirmed ?Type albuterol sulfate 90 mcg/actuation 2 puff inhalation Q4H PRN 11/27/19 07/09/24 Rx aerosol inhaler (ProAir HFA) shortness of breath or wheezing #8.5 grams lancets (Lancets, Super Thin) #100 ea 01/30/20 07/09/24 Rx blood sugar diagnostic (Contour #100 ea 03/19/20 07/09/24 Rx Next Test Strips) multivit with minerals-iron 18 1 tablet PO DAILY 12/10/21 07/09/24 History mg-folic ac 400 mcg-vit K 25 mcg tablet (Adults Multivitamin) vitamin B complex (B 1 tablet PO DAILY 12/10/21 07/09/24 History Complex-Vitamin B12 tablet) atorvastatin 40 mg tablet 40 mg PO QPM 10/21/23 07/09/24 History finasteride 5 mg tablet See Rx Instructions .Route 01/02/24 07/09/24 Rx .COMPLEX #90 tabs glipizide 2.5 mg tablet, extended See Rx Instructions .Route 04/04/24 07/09/24 Rx release 24 hr .COMPLEX #90 tabs omega-3 fatty acids 1,000 mg PO DAILY 04/09/24 07/09/24 History apixaban 5 mg tablet (Eliquis) 5 mg PO Q12H 05/02/24 07/09/24 History diltiazem HCl 180 mg 180 mg PO Q24H 05/02/24 07/09/24 History capsule,extended release 24 hr furosemide 40 mg tablet 40 mg PO DAILY 05/02/24 07/09/24 History metformin 1,000 mg tablet 1,000 mg PO BID #180 tabs 05/11/24 07/09/24 Rx fluticasone 250 mcg-salmeterol 50 See Rx Instructions .Route 05/25/24 07/09/24 Rx mcg/dose blistr powdr for .COMPLEX #180 ea inhalation (Wixela Inhub) clopidogrel 75 mg tablet See Rx Instructions .Route 05/28/24 07/09/24 Rx .COMPLEX #90 tabs oxybutynin chloride 15 mg 15 mg PO HS #90 tabs 05/28/24 07/09/24 Rx tablet,extended release 24 hr Allergies Allergy/AdvReac Type Severity Reaction Status Date / Time Opioids - Morphine Analogues AdvReac Intermediate Nausea and Verified 07/09/24 15:39 Vomiting Vital Signs Vital Signs - 24 hr 07/09/24 11:24 07/09/24 11:37 Temperature 98.1 F Pulse Rate 102 H 89 Respiratory Rate 20 16 Blood Pressure 135/79 135/79 Pulse Oximetry 97 96 Oxygen Delivery Room Air Exam Narrative: General: Chronically ill-appearing male in the semi-Byrnes position in bed in no acute distress. Weight: 89.6 kg. BMI: 27.6. HEENT: PERRL, EOMI. Sclera anicteric. Oral mucosa moist. Neck: Supple. Respiratory: Respirations are nonlabored he is speaking in full sentences. Cardiovascular: Regular rate and rhythm with S1-S2. Systolic murmur at the left lower sternal border and apex. Gastrointestinal: Abdomen is soft, obese, nontender, and nondistended with positive bowel sounds. Skin: Warm and dry. Generalized pallor. Scattered bruising on the upper extremities. Extremities: No cyanosis or clubbing. Codie ankle edema bilaterally, left greater than right. Peripheral pulses palpable. Neurological: Alert. Cranial nerves 2-12 are grossly intact. No gross focal deficits to casual conversation. Psychiatric: Pleasant and cooperative with normal mood and affect. Judgment and insight intact. H&P: Results Labs Labs: Short CBC 07/09/24 Range/Units 11:45 WBC 11.2 H (4.5-10.0) K/mm3 Hgb 7.8 L D (14.0-18.0) g/dL Hct 25.0 L (42.0-52.0) % Plt Count 267 (150-375) k/mm3 BMP 07/09/24 11:43 Sodium 139 Potassium 4.3 Chloride 110 H Carbon Dioxide 18 L BUN 41 H D Creatinine 1.27 Glucose 173 H Calcium 8.5 Liver Function 07/09/24 Range/Units 11:43 Total Bilirubin 0.5 (0.2-1.3) mg/dL AST 18 (17-59) U/L ALT 17 (6-50) U/L Alkaline Phosphatase 26 L (38-126) U/L Albumin 2.8 L (3.5-5.1) g/dL Imaging Abdomen/Pelvis CT 07/09/24 12:57 IMPRESSION: 1. 2.3 cm mass in left kidney, most likely a hemorrhagic cyst, but neoplasm cannot be excluded. Consider abdomen CT without and with contrast. 2. Small left pleural effusion. 3. Chronic interstitial lung disease. 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 Labs, imaging, EKG, and all reports were personally reviewed. Previous colonoscopies noted large internal hemorrhoids as well as medium-sized diverticuli which may very well be the culprit as he describes passing bright red blood. BUN is elevated however and he has been started on pantoprazole IV for now. He has acute blood loss anemia with a little over 6 g drop in hemoglobin compared to labs drawn 2 months ago. Blood pressure and heart rate have been stable thus far. He will be NPO after midnight for endoscopy tomorrow. Dr. Dee was consulted by the ED and his input is appreciated. Apixaban and clopidogrel on hold with his last dose being sometime last evening. Renal function is stable on review of previous labs. Oral hypoglycemics have been placed on hold as he is NPO. Initiate sliding scale insulin, Accu-Cheks, and hypoglycemic protocol. His home medications will be reviewed and resumed as appropriate. Findings and treatment plan were discussed with the patient. Questions were solicited and answered to satisfaction. The patient's medical management will be taken over by the hospitalist team in a.m. Quality VTE Prophylaxis VTE prophylaxis: mechanical ordered If No VTE Prophylaxis Answer both mechanical and pharmacologic: Reason no pharmacologic proph: medical contraindication (acute blood loss anemia due to GI bleeding) The patient has been admitted under observation status. Hospitalist MIPS Advance Care Plan I have confirmed that the patient's Advanced Care Plan is present, code status is documented, or surrogate decision maker is listed in patient medical record.: Yes Medication Reconciliation I have utilized all available resources to obtain, update and review the patients current medications (includes all prescriptions, OTC, herbals, cannabis, and nutritional supplements).: Yes
--- NOTE | 2024-07-09 16:10 | PC.NURSE ---
This patient, Christian Villa I, was admitted to [facility] Surg Room 332-01. Patient/family oriented to hospital policies and general routines including ID bracelet, bed and alarms, visiting hours, pain management, procedures, bathroom and other care routines, personal items, smoking policy, room service/diet, and visiting hours. Information on how to activate the Rapid Response Team has been discussed. Patient/Family are encouraged to report perceived risks to care and to ask questions if they do not understand what they are told or what they should do.
[2024-07-09 16:39] LABS: Basophils Absolute Auto 0.1 K/mm3 (0.0-0.1); Basophils Percent Auto 0.4 % (0.2-1.2); Eosinophils Absolute Auto 0.1 K/mm3 (0-0.3); Eosinophils Percent Auto 0.4 % (0-4.4); Hematocrit 23.1 % (42.0-52.0); Hemoglobin 7.3 g/dL (14.0-18.0); Immature Granulocyte Absolute 0.12 K/mm3 (0.00-0.031); Lymphocytes Absolute Auto 3.33 K/mm3 (0.9-3.2); Lymphocytes Percent Auto 26.8 % (18.3-44.2); Mean Corpuscular HGB Conc 31.6 g/dl (32-36); Mean Corpuscular Hemoglobin 31.9 pg (26-34); Mean Corpuscular Volume 100.9 fl (80-100); Mean Platelet Volume 10.1 fl (7.4-10.4); Monocytes Absolute Auto 0.8 K/mm3 (0.1-0.6); Monocytes Percent Auto 6.4 % (2.6-8.5); Neutrophils Absolute Auto 8.1 K/mm3 (1.3-6.7); Nucleated Red Blood Cells Perc 0.3 % (0.0-0.2); Platelet Count Result 257 k/mm3 (150-375); Red Blood Count 2.29 M/mm3 (4.6-6.20); Red Cell Distribution Width 17.7 % (11.5-14.5); White Blood Count 12.4 K/mm3 (4.5-10.0)
[2024-07-09 20:28] LABS: Hematocrit 21.8 % (42.0-52.0)
[2024-07-09 20:39] LABS: Hemoglobin 6.8 g/dL (14.0-18.0)
[2024-07-09 20:43] LABS: Hemoglobin A1C 5.3 % (<5.7)
[2024-07-09] MEDS: PANTOPRAZOLE SODIUM IV 40 MG VIAL IV PUSH (20:49)
[2024-07-09] MEDS: oxyBUTYnin CHLORIDE XL 5 MG TAB.ER.24 15 MG PO (20:49)
[2024-07-09] MEDS: ATORVASTATIN 40 MG TABLET PO (20:49)
[2024-07-09 21:14] LABS: Glucose Point of Care 114 mg/dl (65-105)
[2024-07-09] MEDS: SODIUM CHLORIDE 0.9% IV 250 ML 30 ML IV CONT (22:50)
[2024-07-10] VITALS (10 sets, daily range): BP systolic 74–145; BP diastolic 53–66; PULSE 79–95; RESP 14–18; TEMP 35.8–36.4; O2SAT 97–100; BMI 27.4
[2024-07-10 02:45] LABS: Hematocrit 23.6 % (42.0-52.0); Hemoglobin 7.5 g/dL (14.0-18.0); Mean Corpuscular HGB Conc 31.8 g/dl (32-36); Mean Corpuscular Hemoglobin 31.3 pg (26-34); Mean Corpuscular Volume 98.3 fl (80-100); Mean Platelet Volume 9.5 fl (7.4-10.4); Platelet Count Result 201 k/mm3 (150-375); White Blood Count 10.6 K/mm3 (4.5-10.0)
[2024-07-10 02:59] LABS: Anion Gap 7 mmol/L (4-12); Blood Urea Nitrogen 36 mg/dL (9-20); Calcium 7.8 mg/dL (8.4-10.2); Carbon Dioxide 20 mmol/L (22-30); Chloride 110 mmol/L (98-107); Estimated CRCL calculation 47 ml/min; Estimated Glomerular Filt Rate > 60; Glucose 119 mg/dL (65-110); Magnesium 2.3 mg/dL (1.6-2.3); Potassium 3.6 mmol/L (3.4-5.0); Sodium 137 mmol/L (137-145)
[2024-07-10] MEDS: PANTOPRAZOLE SODIUM IV 40 MG VIAL IV PUSH (07:56)
--- NOTE | 2024-07-10 08:03 | P.CONGI_ITS ---
<Statement entered by Shady Dee MD - 07/10/24 15:32> I, Shady Dee MD, have provided a substantive portion of the care of this patient and discussed the patient with my Nurse Practitioner. I have reviewed any new relevant radiographic and laboratory results including medications. I agree with her documentation as noted below.?I personally performed the medical decision making and much of the history and exam for this encounter. briefly, here with new onset of dark maroon stool, here noted acute drop of hemoglobin, he is also on chronic anticoagulation. Had colonoscopy with diverticulosis. He is hemodynamically stable. Wonder if source of bleeding could be diverticula but also will do EGD tomorrow because drop of h/h and use of anticoagulation. 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 GI bleed/ABLA/family Hx of hereditary stomach condition: Last colonoscopy 11/19/[address] Salazar at which time the patient was noted to have multiple medium-sized internal hemorrhoids and diverticular disease. Patient states that he has never had an EGD. According to the patient his father was diagnosed with a rare hereditary stomach issue that wasn't cancer but patient was unable to provide any further details. Patient states that recently he was experiencing mild constipation and on Tuesday he had a large bowel movement that required straining. During this bowel movement he had some rectal discomfort. Later in the evening /Tuesday morning he noted blood in the recliner he was sitting and then had multiple bowel movements following that that had a moderate amount of dark red blood in the bowl along with blood clots. He denies any bowel movements over the past 2 days. Patient was on Eliquis and aspirin prior to admission for history of cardiac stents and AFib. He denies hematemesis or bright red blood per rectum. No signs of active GI bleeding since admission. On admission Hgb at 6.8. Labs today show HGB 8, HCT 24, MCV 98, platelets [address] performed 07/09/2024 was negative from a GI standpoint. Unclear if blood source is upper versus lower GI. Differential diagnosis include AVM versus hemorrhoids versus polyp versus ulcers versus diverticular bleed versus neoplasm * Plan for EGD and colonoscopy tomorrow * clear liquid diet today * Bowel prep to start this evening * Primary care team to continue monitoring H&H and transfuse as needed to keep HGB > 7 * Care with NSAIDs, aspirin, anticoagulants * Anemia labs ordered * Further recommendations to follow endoscopy Thank you very much for allowing me to share in the care of this very nice patient. This report may have been done utilizing a voice recognition system. Attempts have been made to correct errors. However, there may be uncorrected grammatical, spelling, and recognition errors present. <Alicia Her APRN - Last Filed: 07/10/24 09:43> GI Consult Note Consult date/time: 07/10/24 08:03 <Alicia Her APRN - Last Filed: 07/10/24 09:43> Reason for consult: GI bleed <Alicia Her APRN - Last Filed: 07/10/24 09:43> HPI: This is an 84-year-old male with history of CKD stage 3, ANEUDY, COPD with asthma, AFib on Eliquis and Plavix, diabetes, cardiac catheterization, brain mass, HLD, HTN, and BPH. He presented to the emergency room yesterday with complaints of rectal bleeding. GI has been consulted for GI bleed. Patient states that recently he was experiencing constipation in on Tuesday he had a large bowel movement that required significant straining and he states that when the stool past there was rectal discomfort. Patient states that late Tuesday night/ early Tuesday he noted blood in his recliner when he got up and then had multiple bowel movements which he noticed dark red blood in the bowl along with clots. He denies any bowel movements over the past 2 days. He on Eliquis and Plavix prior to admission. he currently denies any abdominal pain, nausea, vomiting, bloating, odynophagia, dysphagia, reflux, regurgitation, early satiety, unexplained weight loss, appetite loss, diarrhea, or melena. He is a nondrinker, nonsmoker and denies marijuana use. Patient states that his father was diagnosed with a rare stomach condition that is hereditary but wasn't cancer . ENDOSCOPY HISTORY: EGD: Patient has never had an EGD COLONOSCOPY: 11/19/[address] Salazar for CRC screening Findings: Multiple large size uncomplicated hemorrhoids were seen in the rectum that were not actively bleeding A few medium diverticula were present in the sigmoid colon that were not bleeding LABS AND STOOL STUDIES: LABS 07/10/2024: Sodium 137, potassium 3.6, BUN 36, creatinine 1.12, GFR >60 WBC 11, Hgb 8, Hct 24, MCV 98, platelets 201, INR 1.3 Total bilirubin 0.5, AST 18, ALT 17, Alkaline Phos 26, albumin 2.8 IMAGING: CT abd/pelvis w/contrast 07/09/2024: IMPRESSION: 1. 2.3 cm mass in left kidney, most likely a hemorrhagic cyst, but neoplasm cannot be excluded. Consider abdomen CT without and with contrast. 2. Small left pleural effusion. 3. Chronic interstitial lung disease. <Alicia Her APRN - Last Filed: 07/10/24 09:43> Review of Systems 2 Constitutional: Constitutional: Reports as per HPI <Alicia Her APRN - Last Filed: 07/10/24 09:43> Comments: bruising and swelling to both arms <Alicia Her APRN - Last Filed: 07/10/24 09:43> ENT: Reports as per HPI <Alicia Her APRN - Last Filed: 07/10/24 09:43> Comments: dry mouth <Alicia Her APRN - Last Filed: 07/10/24 09:43> Cardiovascular: Cardiovascular: Reports as per HPI, Denies chest pain and Denies dyspnea <Alicia Her APRN - Last Filed: 07/10/24 09:43> Respiratory: Respiratory: Denies cough and Denies dyspnea <Alicia Her APRN - Last Filed: 07/10/24 09:43> Gastrointestinal: Gastrointestinal: Reports as per HPI <Alicia Her APRN - Last Filed: 07/10/24 09:43> Comments: dark red rectal bleeding <Alicia Her APRN - Last Filed: 07/10/24 09:43> Musculoskeletal: Musculoskeletal: Reports as per HPI <Alicia Her APRN - Last Filed: 07/10/24 09:43> Integumentary/Breasts: Skin/Breast: Reports as per HPI <Alicia Her APRN - Last Filed: 07/10/24 09:43> Psychiatric: Psychiatric: Reports as per HPI <Alicia Her APRN - Last Filed: 07/10/24 09:43> Endocrine: Endocrine: Reports no additional endocrine complaints <Alicia Her APRN - Last Filed: 07/10/24 09:43> Hematologic/Lymphatic: Hematologic/Lymphatic: Reports no additional hematologic/lymphatic complaints <Alicia Her APRN - Last Filed: 07/10/24 09:43> PMFSH Past Medical History Medical History: Medical History Chronic kidney disease, stage 3 Chronic anticoagulation Cerebral cavernoma Dorsalgia Obstructive sleep apnea intolerant to CPAP Lumbosacral stenosis with neurogenic claudication with epidural steroid injection L4-L5 December 2022 Mild cognitive impairment COPD with asthma Lumbosacral radiculopathy Claudication of both lower extremities Postlaminectomy syndrome Lumbosacral spondylosis Long COVID Atrial fibrillation Benign non-nodular prostatic hyperplasia without lower urinary tract symptoms Essential hypertension 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 <Alicia Her APRN - Last Filed: 07/10/24 09:43> Surgical History Surgical History: Surgical History History of cardiac catheterization (03/2023) multivessel coronary disease to 80% stenosis of the proximal LAD 70% stenosis midportion of LAD very small diagonal branch, proximal and mid left circ have luminal irregularities 90% long stenosis left circumflex, small caliber obtuse marginal branch with mild diffuse disease obtuse marginal 2 has a moderate stenosis of the midportion right coronary artery is dominant vessel with 90% stenosis of the midportion and mid RPDA has 2 tandem stenosis is of 60-70% the patient was referred for CV surgery however the patient then underwent staged procedure at [facility] with PCI and stent to mid distal left circ and in September 2023 he had a PCI to the mid RCA History of back surgery Lumbar fusion History of cataract surgery <Alicia Her APRN - Last Filed: 07/10/24 09:43> Family History Family History: Family History (Updated 07/10/24 @ 13:03 by Amy Islas RN) Sibling Patient's sister is in good health Patient's brother is in good health Father Heart disease Acute myocardial infarction Telangiectasia Pcodf-Yofpo-Fjsna disease Angiodysplasia AVM (arteriovenous malformation) Mother Acute myocardial infarction <Alicia Her APRN - Last Filed: 07/10/24 09:43> Social History Social History: Social History Social History: Surrogate medical decision maker: Genoveva Villa, spouse. Code status: DO NOT RESUSCITATE. Smoking packs per day: 0.5 Smoking cigarettes per day: 10.0 Years smoked: 2 Smoking pack-years: 1.00 Smoking status: Former smoker Tobacco type: cigarettes and cigars Second hand tobacco smoke exposure: No Smoking end date: 05/16/1950 Alcohol intake: never Substance use: never Substance use type: does not use Do You Feel Safe in your Home?: Yes Lack of Transportation: No Lack of Food: Never True Current Housing: I Have Housing Concerned About Future Housing: No Difficulty Paying Gas/Electric Bills: No Difficulty Paying for Meds: No Currently Unemployed: No Education: Grade School Difficulty w/ Childcare or Family Care: No Living arrangements: with family Additional living arrangements comments: Lives with in [place]. Occupation/Education: retired Additional occupation/education comments: [employer]. Spiritual care concerns: No <Alicia Her, [employer] - Last Filed: 07/10/24 09:43> Meds Home Medications and Allergies Home medications: Home Medications ?Medication ?Instructions ?Recorded ?Confirmed ?Type albuterol sulfate 90 mcg/actuation 2 puff inhalation Q4H PRN 11/27/19 07/09/24 Rx aerosol inhaler (ProAir HFA) shortness of breath or wheezing #8.5 grams lancets (Lancets, Super Thin) #100 ea 01/30/20 07/09/24 Rx blood sugar diagnostic (Contour #100 ea 03/19/20 07/09/24 Rx Next Test Strips) multivit with minerals-iron 18 1 tablet PO DAILY 12/10/21 07/09/24 History mg-folic ac 400 mcg-vit K 25 mcg tablet (Adults Multivitamin) vitamin B complex (B 1 tablet PO DAILY 12/10/21 07/09/24 History Complex-Vitamin B12 tablet) atorvastatin 40 mg tablet 40 mg PO QPM 10/21/23 07/09/24 History finasteride 5 mg tablet See Rx Instructions .Route 01/02/24 07/09/24 Rx .COMPLEX #90 tabs glipizide 2.5 mg tablet, extended See Rx Instructions .Route 04/04/24 07/09/24 Rx release 24 hr .COMPLEX #90 tabs omega-3 fatty acids 1,000 mg PO DAILY 04/09/24 07/09/24 History apixaban 5 mg tablet (Eliquis) 5 mg PO Q12H 05/02/24 07/09/24 History diltiazem HCl 180 mg 180 mg PO Q24H 05/02/24 07/09/24 History capsule,extended release 24 hr furosemide 40 mg tablet 40 mg PO DAILY 05/02/24 07/09/24 History metformin 1,000 mg tablet 1,000 mg PO BID #180 tabs 05/11/24 07/09/24 Rx fluticasone 250 mcg-salmeterol 50 See Rx Instructions .Route 05/25/24 07/09/24 Rx mcg/dose blistr powdr for .COMPLEX #180 ea inhalation (Wixela Inhub) clopidogrel 75 mg tablet See Rx Instructions .Route 05/28/24 07/09/24 Rx .COMPLEX #90 tabs oxybutynin chloride 15 mg 15 mg PO HS #90 tabs 05/28/24 07/09/24 Rx tablet,extended release 24 hr <Alicia Her, [employer] - Last Filed: 07/10/24 09:43> Allergies/Adverse reactions: Allergies Allergy/AdvReac Type Severity Reaction Status Date / Time Opioids - Morphine Analogues AdvReac Intermediate Nausea and Verified 07/09/24 15:39 Vomiting <Alicia Her, [employer] - Last Filed: 07/10/24 09:43> Vital Signs Vital Signs - 24 hr 07/09/24 11:18 07/09/24 11:19 07/09/24 11:24 Temperature 98.1 F Pulse Rate 118 H 109 H 102 H Respiratory Rate 14 21 H 20 Blood Pressure 135/79 135/79 Pulse Oximetry 96 97 Oxygen Delivery Room Air 07/09/24 11:37 07/09/24 11:45 07/09/24 11:47 Temperature Pulse Rate 89 111 H 94 Respiratory Rate 16 22 H 18 Blood Pressure 135/79 112/66 Pulse Oximetry 96 100 Oxygen Delivery 07/09/24 12:00 07/09/24 12:01 07/09/24 12:15 Temperature Pulse Rate 89 103 H 99 Respiratory Rate 15 15 15 Blood Pressure 126/66 Pulse Oximetry 95 Oxygen Delivery 07/09/24 12:16 07/09/24 12:30 07/09/24 12:31 Temperature Pulse Rate 93 89 98 Respiratory Rate 15 17 18 Blood Pressure 138/57 L 131/71 Pulse Oximetry 97 98 98 Oxygen Delivery 07/09/24 12:55 07/09/24 13:00 07/09/24 13:08 Temperature Pulse Rate 94 101 H 91 Respiratory Rate 19 20 17 Blood Pressure 134/72 Pulse Oximetry 100 100 98 Oxygen Delivery 07/09/24 13:15 07/09/24 13:16 07/09/24 13:30 Temperature Pulse Rate 93 88 92 Respiratory Rate 16 14 20 Blood Pressure 139/53 L Pulse Oximetry 97 97 97 Oxygen Delivery 07/09/24 13:31 07/09/24 13:45 07/09/24 13:46 Temperature Pulse Rate 94 82 87 Respiratory Rate 16 15 16 Blood Pressure 133/68 120/61 Pulse Oximetry 97 98 96 Oxygen Delivery 07/09/24 14:00 07/09/24 14:01 07/09/24 14:15 Temperature Pulse Rate 95 91 84 Respiratory Rate 13 14 14 Blood Pressure 126/60 Pulse Oximetry 99 99 Oxygen Delivery 07/09/24 14:16 07/09/24 14:30 07/09/24 14:31 Temperature Pulse Rate 80 95 84 Respiratory Rate 13 15 13 Blood Pressure 121/73 113/101 H Pulse Oximetry 98 99 99 Oxygen Delivery 07/09/24 14:45 07/09/24 14:46 07/09/24 15:34 Temperature 97.7 F Pulse Rate 84 84 89 Respiratory Rate 14 14 18 Blood Pressure 116/64 134/72 Pulse Oximetry 99 99 100 Oxygen Delivery 07/09/24 15:39 07/09/24 20:00 07/09/24 22:00 Temperature 97.5 F L Pulse Rate 98 Respiratory Rate 16 Blood Pressure 125/62 Pulse Oximetry 100 Oxygen Delivery Room Air Room Air 07/09/24 22:54 07/09/24 23:09 07/10/24 00:09 Temperature 97.7 F 97.5 F L 97.4 F L Pulse Rate 96 76 94 Respiratory Rate 16 16 16 Blood Pressure 154/63 H 135/55 L 133/66 Pulse Oximetry 100 100 98 Oxygen Delivery 07/10/24 01:09 07/10/24 06:00 Temperature 97.6 F 97.5 F L Pulse Rate 83 91 Respiratory Rate 16 14 Blood Pressure 145/54 H 131/54 L Pulse Oximetry 99 99 Oxygen Delivery <Alicia Her, DARSHAN - Last Filed: 07/10/24 09:43> Exam 2 Const: General: cooperative, healthy appearing, comfortable, no acute distress and well developed <Aliciafeng Her APRN - Last Filed: 07/10/24 09:43> Orientation/consciousness: oriented to person, oriented to place, oriented to time and patient oriented x3 <Aliciafeng Her APRN Last Filed: 07/10/24 09:43> HENMT: Head: normal to inspection, normocephalic and atraumatic <Aliciafeng Her APRN - Last Filed: 07/10/24 09:43> Mouth: Yes Normal oral and palatal mucosa present and Yes moist mucous membranes <Alicia Kelsea Her APRN Last Filed: 07/10/24 09:43> Eyes: General: appearance normal, both eyes and all related structures < Aliciafeng Her APRN - Last Filed: 07/10/24 09:43> Conjunctivae: conjunctivae normal <Alicia Her APRN Last Filed: 07/10/24 09:43> Sclera: sclerae normal <Alicia Kelsea Her APRN Last Filed: 07/10/24 09:43> Pupils: Equal, round and reactive pupils present <Alicia Kelsea Her APRN Last Filed: 07/10/24 09:43> Neck: Neck: normal visual inspection <Alicia Her APRN Last Filed: 07/10/24 09:43> Chest: Chest palpation & inspection: normal inspection of the chest < Aliciafeng Her APRN Last Filed: 07/10/24 09:43> Resp: Effort & Inspection: normal respiratory effort and able to speak in complete sentences <Aliciafeng Her APRN Last Filed: 07/10/24 09:43> Auscultation: clear to auscultation bilaterally <Alicia Her APRN - Last Filed: 07/10/24 09:43> Cardio: Jugular venous distension: no JVD <Alicia Her APRN Last Filed: 07/10/24 09:43> Rate: regular rate <Alicia Her APRN - Last Filed: 07/10/24 09:43> Heart sounds: S1 normal heart sound present and S2 normal heart sound present <Alicia WhippleRIKKI [facility]androThe [facility] Last Filed: 07/10/24 09:43> GI: Inspection: normal to inspection <Alicia Whippleflavia [employer] - Last Filed: 07/10/24 09:43> GI Palp: Yes Soft to palpation, No Tenderness to palpation present (GI), No Guarding due to palpation present (GI) and Yes No hepatosplenomegaly present <Alicia TorresHector Her [facility]The [facility] Last Filed: 07/10/24 09:43> Auscultation: normal bowel sounds <Alicia Whippleflavia [facility] Last Filed: 07/10/24 09:43> Rectal Exam: deferred <Alicia TorresHector Her [facility]The [facility] Last Filed: 07/10/24 09:43> Skin: Other: bruising to both arms <Alicia TorresHector Her [facility]The [facility] Last Filed: 07/10/24 09:43> Neuro: General: oriented to person, oriented to place, oriented to time and patient oriented x3 <Alicia TorresHector Her [employer] - Last Filed: 07/10/24 09:43> Cranial nerves: Yes Equal, round and reactive pupils present <Alicia Enamorado DARSHAN Her Last Filed: 07/10/24 09:43> Speech: normal speech <Alicia TorresHector Her [facility]The [facility] Last Filed: 07/10/24 09:43> Extrem: General: normal to inspection and no clubbing, cyanosis or edema < Alicia TorresHector Her [facility]The [facility] Last Filed: 07/10/24 09:43> Other: swelling to both arms <Alicia TorresHector Her [facility] Last Filed: 07/10/24 09:43> Psych: Appearance: grossly normal and well kempt <Alicia TorresHector Her [facility]The [facility] Last Filed: 07/10/24 09:43> Affect: normal affect <Alicia TorresHector Her [facility]The [facility] Last Filed: 07/10/24 09:43> Results Labs CBC & Chem 7: 07/10/24 12:30 07/10/24 02:35 <Alicia Her APRN - Last Filed: 07/10/24 09:43> Labs: Short CBC 07/09/24 07/09/24 07/09/24 Range/Units 11:45 16:26 20:20 WBC 11.2 H 12.4 H (4.5-10.0) K/mm3 Hgb 7.8 L D 7.3 L 6.8 L* (14.0-18.0) g/dL Hct 25.0 L 23.1 L 21.8 L (42.0-52.0) % Plt Count 267 257 (150-375) k/mm3 07/10/24 07/10/24 07/10/24 Range/Units 02:35 02:35 02:35 WBC 10.6 H (4.5-10.0) K/mm3 Hgb 7.5 L Cancelled (14.0-18.0) g/dL Hct 23.6 L Cancelled (42.0-52.0) % Plt Count 201 (150-375) k/mm3 [facility] 07/09/24 07/10/24 11:43 02:35 Sodium 139 137 Potassium 4.3 3.6 Chloride 110 H 110 H Carbon Dioxide 18 L 20 L BUN 41 H D 36 H Creatinine 1.27 1.12 Glucose 173 H 119 H Calcium 8.5 7.8 L Liver Function 07/09/24 Range/Units 11:43 Total Bilirubin 0.5 (0.2-1.3) mg/dL AST 18 (17-59) U/L ALT 17 (6-50) U/L Alkaline Phosphatase 26 L (38-126) U/L Albumin 2.8 L (3.5-5.1) g/dL <Alicia Her APRN - Last Filed: 07/10/24 09:43>
[2024-07-10 08:10] LABS: Glucose Point of Care 115 mg/dl (65-105)
--- NOTE | 2024-07-10 08:51 | P.PNIM_ITS ---
Progress Note: A&P Assessment and Plan (1) GI bleed: Code(s): K92.2 - Gastrointestinal hemorrhage, unspecified Status: Acute Assessment and Plan: Bright red blood in his stools on Tuesday and reports having several bloody stool since that time. At times he does feel constipated in admits that he will occasionally strain. Patient on eliquis and xarelto for afib and stents, currently on hold. Previous colonoscopies noted large internal hemorrhoids as well as medium-sized diverticuli which may very well be the culprit as he describes passing bright red blood. CT abdomen/pelvis: 1. 2.3 cm mass in left kidney, most likely a hemorrhagic cyst, but neoplasm cannot be excluded. Consider abdomen CT without and with contrast. 2. Small left pleural effusion. 3.. Chronic interstitial lung disease. - Pantoprazole BID - Diet: clear liquid - DVT Px: SCDs. Avoid anti-coagulations - Monitor serum electrolytes, CBC, hemoglobin/hematocrit q.8 hours. If hemoglobin drops below 7 transfuse packed red blood cells - Monitor for bloody bowel movements,chest pain,SOB or dizziness/lightheadedness - GI consulted EGD and colonoscopy (2) Acute blood loss anemia: Code(s): D62 - Acute posthemorrhagic anemia Status: Acute Assessment and Plan: Hgb 7.8 on admission. Patient has had a little over 6 g drop in hemoglobin compared to labs drawn 2 months ago where Hgb 14. Patient did have an H/H of 6.8/21.8, given a unit at that time. Will continue to trend at this point and transfuse if Hgb <7. Eliquis and xarelto on hold Iron panel WNL See plan above. (3) Chronic anticoagulation: Code(s): Z79.01 - prison (current) use of anticoagulants Status: Acute Assessment and Plan: Apixaban and clopidogrel on hold for GI bleed. Last dose was sometime last evening. SCD in place for DVT ppx (4) Paroxysmal atrial fibrillation: Code(s): I48.0 - Paroxysmal atrial fibrillation Status: Acute Assessment and Plan: Chronic, remains rate controlled Continue diltiazem 180 mg daily Apixaban and clopidogrel on hold for GI bleed. Last dose was sometime last evening. SCD in place for DVT ppx (5) Type 2 diabetes mellitus: Code(s): E11.9 - Type 2 diabetes mellitus without complications Status: Acute Assessment and Plan: - hypoglycemia protocol - POC blood glucose ACHS - home medication - glipizide 2.5 mg daily, metformin 1000 mg BID - correct regimen ordered - low dose TIDWM - A1C 5.3 (6) Essential hypertension: Code(s): I10 - Essential (primary) hypertension Status: Chronic Assessment and Plan: Chronic - Positive orthostatics today, will continue to check qshift. Likely related to patients acute blood loss vs dehydration, will give a 1L bolus @ 100 ml/hr x1. If this continues after this resolution of GIB will reassess hydration level as well as adjusting medications - Continue diltiazem 180 mg daily (7) Chronic kidney disease, stage 3: Code(s): N18.30 - Chronic kidney disease, stage 3 unspecified Status: Acute Assessment and Plan: BUN/Cr 30/1.40 with GFR 49 on admission - BUN/Cr 36/1.12 with GFR 47 on am labs - avoid nephrotoxic medications - renally dose medications - monitor I/O Time Spent With Patient Time with patient: 25 - 35 minutes Subjective Date/time seen: 07/10/24 08:51 Interval history: 84-year-old male with paroxysmal atrial fibrillation on chronic anticoagulation, coronary artery disease, hypertension, hyperlipidemia, type 2 diabetes mellitus, chronic obstructive pulmonary disease, untreated obstructive sleep apnea, benign prostatic hyperplasia, chronic kidney disease, and arthritis who presented to the emergency department for evaluation of rectal bleeding. Patient is pleasant lying comfortably in bed with family at bedside. He has not had any bloody stools since admission. He also denies any nausea /vomiting and abdominal pain. He had no other complaints denying chest pain, palpitations and shortness of breath. Review of Systems Review of Systems: All systems reviewed & are unremarkable except as noted in HPI and below Exam Narrative: AF HR 85 RR 16 Spo2 100 BP 122/57 General: male in no acute respiratory distress who is nontoxic appearing, lying semi recumbent in bed. HEENT: Normocephalic. Atraumatic. Extraocular movement intact. Sclera clear and anicteric. No facial asymmetry. Chest: Lungs are clear to auscultation bilaterally. No wheezes or crackles. CV: Heart was regular rate and rhythm. S1/S2. No murmurs, gallops, or rubs. Abd: Abdomen was soft. Nontender. Nondistended. Positive bowel sounds. No organomegaly or masses. Ext: No clubbing, cyanosis, or edema. 2+ DP pulses bilaterally. Neuro: Patient is alert and oriented x4. Speech is clear. Objective Data Vital Signs Vital Signs: Vital Signs - 24 hr 07/09/24 11:18 07/09/24 11:19 07/09/24 11:24 Temperature 98.1 F Pulse Rate 118 H 109 H 102 H Respiratory Rate 14 21 H 20 Blood Pressure 135/79 135/79 Pulse Oximetry 96 97 Oxygen Delivery Room Air 07/09/24 11:37 07/09/24 11:45 07/09/24 11:47 Temperature Pulse Rate 89 111 H 94 Respiratory Rate 16 22 H 18 Blood Pressure 135/79 112/66 Pulse Oximetry 96 100 Oxygen Delivery 07/09/24 12:00 07/09/24 12:01 07/09/24 12:15 Temperature Pulse Rate 89 103 H 99 Respiratory Rate 15 15 15 Blood Pressure 126/66 Pulse Oximetry 95 Oxygen Delivery 07/09/24 12:16 07/09/24 12:30 07/09/24 12:31 Temperature Pulse Rate 93 89 98 Respiratory Rate 15 17 18 Blood Pressure 138/57 L 131/71 Pulse Oximetry 97 98 98 Oxygen Delivery 07/09/24 12:55 07/09/24 13:00 07/09/24 13:08 Temperature Pulse Rate 94 101 H 91 Respiratory Rate 19 20 17 Blood Pressure 134/72 Pulse Oximetry 100 100 98 Oxygen Delivery 07/09/24 13:15 07/09/24 13:16 07/09/24 13:30 Temperature Pulse Rate 93 88 92 Respiratory Rate 16 14 20 Blood Pressure 139/53 L Pulse Oximetry 97 97 97 Oxygen Delivery 07/09/24 13:31 07/09/24 13:45 07/09/24 13:46 Temperature Pulse Rate 94 82 87 Respiratory Rate 16 15 16 Blood Pressure 133/68 120/61 Pulse Oximetry 97 98 96 Oxygen Delivery 07/09/24 14:00 07/09/24 14:01 07/09/24 14:15 Temperature Pulse Rate 95 91 84 Respiratory Rate 13 14 14 Blood Pressure 126/60 Pulse Oximetry 99 99 Oxygen Delivery 07/09/24 14:16 07/09/24 14:30 07/09/24 14:31 Temperature Pulse Rate 80 95 84 Respiratory Rate 13 15 13 Blood Pressure 121/73 113/101 H Pulse Oximetry 98 99 99 Oxygen Delivery 07/09/24 14:45 07/09/24 14:46 07/09/24 15:34 Temperature 97.7 F Pulse Rate 84 84 89 Respiratory Rate 14 14 18 Blood Pressure 116/64 134/72 Pulse Oximetry 99 99 100 Oxygen Delivery 07/09/24 15:39 07/09/24 20:00 07/09/24 22:00 Temperature 97.5 F L Pulse Rate 98 Respiratory Rate 16 Blood Pressure 125/62 Pulse Oximetry 100 Oxygen Delivery Room Air Room Air 07/09/24 22:54 07/09/24 23:09 07/10/24 00:09 Temperature 97.7 F 97.5 F L 97.4 F L Pulse Rate 96 76 94 Respiratory Rate 16 16 16 Blood Pressure 154/63 H 135/55 L 133/66 Pulse Oximetry 100 100 98 Oxygen Delivery 07/10/24 01:09 07/10/24 06:00 07/10/24 08:00 Temperature 97.6 F 97.5 F L 96.6 F L Pulse Rate 83 91 95 Respiratory Rate 16 14 18 Blood Pressure 145/54 H 131/54 L 138/61 Pulse Oximetry 99 99 100 Oxygen Delivery 07/10/24 08:27 07/10/24 08:27 Temperature Pulse Rate Respiratory Rate Blood Pressure 128/55 L 74/53 L Pulse Oximetry Oxygen Delivery Intake/Output Intake/Output: Intake & Output 07/07/24 07/08/24 07/09/24 07/10/24 23:59 23:59 23:59 23:59 Intake Total 240 350 Output Total 200 450 Balance 40 -100 Meds/Results Medications: Active Medications Generic Name Dose Route Start Last Admin Trade Name Freq PRN Reason Stop Dose Admin Albuterol 2 puff 07/09/24 19:28 Albuterol Sulfate (*Sp) Aerosol 1 Puff INHALATION Q4H PRN shortness of breath or wheezing Atorvastatin Calcium 40 mg 07/09/24 19:35 07/09/24 20:49 Atorvastatin 40 Mg Tablet PO 40 mg QPM MELISSA Administration Dextrose 12.5 gm 07/09/24 19:27 Dextrose 50% 25 Gm/50 Ml Syringe IV PUSH PRN PRN Hypoglycemia Protocol Diltiazem HCl 180 mg 07/10/24 09:00 07/10/24 08:06 Diltiazem Hcl Cd 180 Mg Cap.24hr PO Not Given DAILY MELISSA Glucagon 1 mg 07/09/24 19:27 Glucagon For Inj 1 Mg Vial IM PRN PRN Hypoglycemia Protocol Glucose 15 gm 07/09/24 19:27 Glucose Oral Gel 15 Gm Of Glucse In 37.5 Gm Tube PO PRN PRN Hypoglycemia Protocol Dextrose 1,000 mls @ 100 mls/hr 07/09/24 19:27 Dextrose 5% 1,000 Ml IVPB PRN PRN Hypoglycemia Protocol Insulin Aspart 3 - 6 units 07/10/24 08:00 07/10/24 07:54 Insulin Aspart (*Bkc) 100 Units/Ml SUB-Q Not Given TIDWM MELISSA Protocol Insulin Aspart 1 - 3 units 07/09/24 21:00 07/09/24 23:05 Insulin Aspart (*Bkc) 100 Units/Ml SUB-Q Not Given HS MELISSA Protocol Oxybutynin Chloride 15 mg 07/09/24 21:00 07/09/24 20:49 Oxybutynin Chloride Xl 5 Mg Tab.Er.24 PO 15 mg HS MELISSA Administration Pantoprazole Sodium 40 mg 07/10/24 09:00 07/10/24 07:56 Pantoprazole Sodium Iv 40 Mg Vial IV PUSH 40 mg QAM MELISSA Administration Fluticasone/Salmeterol 2 puff 07/09/24 20:00 Fluticasone/Salmeterol 115-21 Mcg Inhaler 1 Puff INHALATION Q12HRT [facility] Radiology Results: ITS Impressions Abdomen/Pelvis CT 07/09/24 12:57 IMPRESSION: 1. 2.3 cm mass in left kidney, most likely a hemorrhagic cyst, but neoplasm cannot be excluded. Consider abdomen CT without and with contrast. 2. Small left pleural effusion. 3. Chronic interstitial lung disease. Labs Labs: Laboratory Results - last 24 hr 07/09/24 07/09/24 07/09/24 11:43 11:44 11:45 WBC 11.2 H RBC 2.49 L Hgb 7.8 L D Hct 25.0 L MCV 100.4 H MCH 31.3 MCHC 31.2 L RDW 17.4 H Plt Count 267 MPV 9.8 Immature Gran % (Auto) 0.9 H Neut % (Auto) 60.5 Lymph % (Auto) 31.4 [place] % (Auto) 6.4 Eos % (Auto) 0.4 Baso % (Auto) 0.4 Lymph # (Auto) 3.51 H [place] # (Auto) 0.7 H Eos # (Auto) 0.0 Baso # (Auto) 0.0 Abs Immat Gran (auto) 0.10 H Absolute Neuts (auto) 6.8 H Absolute Nucleated RBC 0.030 H Nucleated RBC % 0.3 H PT 16.5 H INR 1.3 APTT 28.9 Sodium 139 Potassium 4.3 Chloride 110 H Carbon Dioxide 18 L Anion Gap 11 BUN 41 H D Creatinine 1.27 Estim Creat Clear Calc 42 Estimated GFR 54 L Glucose 173 H POC Capillary Glucose Hemoglobin A1c Calcium 8.5 Magnesium Total Bilirubin 0.5 AST 18 ALT 17 Alkaline Phosphatase 26 L Total Protein 5.0 L Albumin 2.8 L Blood Type A Positive Antibody Screen Negative Crossmatch See Detail 07/09/24 07/09/24 07/09/24 16:26 20:20 21:09 WBC 12.4 H RBC 2.29 L Hgb 7.3 L 6.8 L* Hct 23.1 L 21.8 L MCV 100.9 H MCH 31.9 MCHC 31.6 L RDW 17.7 H Plt Count 257 MPV 10.1 Immature Gran % (Auto) 1.0 H Neut % (Auto) 65.0 Lymph % (Auto) 26.8 [place] % (Auto) 6.4 Eos % (Auto) 0.4 Baso % (Auto) 0.4 Lymph # (Auto) 3.33 H [place] # (Auto) 0.8 H Eos # (Auto) 0.1 Baso # (Auto) 0.1 Abs Immat Gran (auto) 0.12 H Absolute Neuts (auto) 8.1 H Absolute Nucleated RBC 0.040 H Nucleated RBC % 0.3 H PT INR APTT Sodium Potassium Chloride Carbon Dioxide Anion Gap BUN Creatinine Estim Creat Clear Calc Estimated GFR Glucose POC Capillary Glucose 114 H Hemoglobin A1c 5.3 Calcium Magnesium Total Bilirubin AST ALT Alkaline Phosphatase Total Protein Albumin Blood Type Antibody Screen Crossmatch 07/10/24 07/10/24 07/10/24 02:35 02:35 02:35 WBC 10.6 H RBC 2.40 L Hgb 7.5 L Cancelled Hct 23.6 L Cancelled MCV 98.3 MCH 31.3 MCHC 31.8 L RDW 17.0 H Plt Count 201 MPV 9.5 Immature Gran % (Auto) Neut % (Auto) Lymph % (Auto) [place] % (Auto) Eos % (Auto) Baso % (Auto) Lymph # (Auto) [place] # (Auto) Eos # (Auto) Baso # (Auto) Abs Immat Gran (auto) Absolute Neuts (auto) Absolute Nucleated RBC Nucleated RBC % PT INR APTT Sodium 137 Potassium 3.6 Chloride 110 H Carbon Dioxide 20 L Anion Gap 7 BUN 36 H Creatinine 1.12 Estim Creat Clear Calc 47 Estimated GFR > 60 Glucose 119 H POC Capillary Glucose Hemoglobin A1c Calcium 7.8 L Magnesium 2.3 Total Bilirubin AST ALT Alkaline Phosphatase Total Protein Albumin Blood Type Antibody Screen Crossmatch 07/10/24 08:08 WBC RBC Hgb Hct MCV MCH MCHC RDW Plt Count MPV Immature Gran % (Auto) Neut % (Auto) Lymph % (Auto) [place] % (Auto) Eos % (Auto) Baso % (Auto) Lymph # (Auto) [place] # (Auto) Eos # (Auto) Baso # (Auto) Abs Immat Gran (auto) Absolute Neuts (auto) Absolute Nucleated RBC Nucleated RBC % PT INR APTT Sodium Potassium Chloride Carbon Dioxide Anion Gap BUN Creatinine Estim Creat Clear Calc Estimated GFR Glucose POC Capillary Glucose 115 H Hemoglobin A1c Calcium Magnesium Total Bilirubin AST ALT Alkaline Phosphatase Total Protein Albumin Blood Type Antibody Screen Crossmatch Quality VTE Prophylaxis VTE prophylaxis: mechanical ordered
[2024-07-10 08:56] LABS: Hematocrit 25.3 % (42.0-52.0); Hemoglobin 7.8 g/dL (14.0-18.0); Immature Reticulocyte Fraction 39.4 % (3.0-15.9); Reticulocyte Hemoglobin Conten 34.7 pg (28.2-36.6); Reticulocyte Percent 4.59 % (0.7-4.3); Reticulocytes Absolute 0.12 10^6/uL (0.02-0.10)
[2024-07-10 09:22] LABS: Iron 58 ug/dL (49-181)
[2024-07-10 09:31] LABS: Percent Iron Saturation 22 % (20-50)
[2024-07-10] MEDS: SODIUM CHLORIDE 0.9% IV 1,000 ML 100 ML IV CONT (09:41)
[2024-07-10] MEDS: FLUTICASONE/SALMETEROL 115-21 MCG INHALER 1 PUFF 2 PUFF INHALATION ×2 (09:47→20:35)
[2024-07-10 11:44] LABS: Glucose Point of Care 111 mg/dl (65-105)
[2024-07-10 12:50] LABS: Hematocrit 25.1 % (42.0-52.0); Hemoglobin 7.9 g/dL (14.0-18.0)
[2024-07-10] MEDS: ATORVASTATIN 40 MG TABLET PO (16:07)
[2024-07-10] MEDS: polyethylene glycoL 3350 238 GM BOTTLE PO (16:07)
[2024-07-10] MEDS: BISACODYL 5 MG TABLET EC 20 MG PO (16:07)
[2024-07-10 16:19] LABS: Glucose Point of Care 130 mg/dl (65-105)
[2024-07-10 19:15] LABS: Hematocrit 24.2 % (42.0-52.0); Hemoglobin 7.5 g/dL (14.0-18.0)
[2024-07-10 20:27] LABS: Glucose Point of Care 124 mg/dl (65-105)
[2024-07-10] MEDS: oxyBUTYnin CHLORIDE XL 5 MG TAB.ER.24 15 MG PO (21:41)
[2024-07-11] VITALS (12 sets, daily range): BP systolic 113–146; BP diastolic 50–90; PULSE 63–120; RESP 12–22; TEMP 36.1–37; O2SAT 96–100
[2024-07-11] MEDS: MAGNESIUM CITRATE 300 ML BTL PO (01:50)
[2024-07-11 02:22] LABS: Hematocrit 23.5 % (42.0-52.0); Hemoglobin 7.4 g/dL (14.0-18.0)
[2024-07-11 06:42] LABS: Hematocrit 22.9 % (42.0-52.0); Hemoglobin 7.4 g/dL (14.0-18.0); Mean Corpuscular HGB Conc 32.3 g/dl (32-36); Mean Corpuscular Hemoglobin 32.5 pg (26-34); Mean Corpuscular Volume 100.4 fl (80-100); Mean Platelet Volume 9.7 fl (7.4-10.4); Platelet Count Result 205 k/mm3 (150-375); Red Blood Count 2.28 M/mm3 (4.6-6.20); Red Cell Distribution Width 18.1 % (11.5-14.5); White Blood Count 8.2 K/mm3 (4.5-10.0)
[2024-07-11] MEDS: FLUTICASONE/SALMETEROL 115-21 MCG INHALER 1 PUFF 2 PUFF INHALATION ×2 (06:49→20:20)
[2024-07-11 06:58] LABS: Anion Gap 5 mmol/L (4-12); Blood Urea Nitrogen 20 mg/dL (9-20); Calcium 7.8 mg/dL (8.4-10.2); Carbon Dioxide 22 mmol/L (22-30); Chloride 113 mmol/L (98-107); Estimated CRCL calculation 55 ml/min; Estimated Glomerular Filt Rate > 60; Glucose 115 mg/dL (65-110); Potassium 3.2 mmol/L (3.4-5.0); Sodium 140 mmol/L (137-145)
[2024-07-11] MEDS: PANTOPRAZOLE SODIUM IV 40 MG VIAL IV PUSH (07:31)
[2024-07-11 07:37] LABS: Glucose Point of Care 124 mg/dl (65-105)
[2024-07-11] MEDS: dilTIAZem HCL CD 180 MG CAP.24HR PO (07:52)
--- NOTE | 2024-07-11 11:06 | PM.IMPN ---
Progress Note: A&P Assessment and Plan (1) GI bleed: Qualifiers: GI bleed type/associated pathology: anorectal hemorrhage Qualified Code(s): K62.5 - Hemorrhage of anus and rectum Code(s): K92.2 - Gastrointestinal hemorrhage, unspecified Status: Acute Assessment and Plan: Bright red blood in his stools on Tuesday and reports having several bloody stool since that time. At times he does feel constipated in admits that he will occasionally strain. Patient on eliquis and xarelto for afib and stents, currently on hold. Previous colonoscopies noted large internal hemorrhoids as well as medium-sized diverticuli which may very well be the culprit as he describes passing bright red blood. CT abdomen/pelvis: 1. 2.3 cm mass in left kidney, most likely a hemorrhagic cyst, but neoplasm cannot be excluded. Consider abdomen CT without and with contrast. 2. Small left pleural effusion. 3.. Chronic interstitial lung disease. - Pantoprazole BID - Diet: clear liquid - DVT Px: SCDs. Avoid anti-coagulations - Monitor serum electrolytes, CBC, hemoglobin/hematocrit q.8 hours. If hemoglobin drops below 7 transfuse packed red blood cells - Monitor for bloody bowel movements,chest pain,SOB or dizziness/lightheadedness - GI consulted EGD and colonoscopy today (2) Acute blood loss anemia: Code(s): D62 - Acute posthemorrhagic anemia Status: Acute Assessment and Plan: Hgb 7.8 on admission. Patient has had a little over 6 g drop in hemoglobin compared to labs drawn 2 months ago where Hgb 14. Patient did have an H/H of 6.8/21.8, given a unit at that time. Will continue to trend at this point and transfuse if Hgb <7. Eliquis and xarelto on hold Iron panel WNL See plan above stable at 7.4 so far (3) Chronic anticoagulation: Code(s): Z79.01 - emt intermediate (current) use of anticoagulants Status: Acute Assessment and Plan: Apixaban and clopidogrel on hold for GI bleed. SCD in place for DVT ppx (4) Paroxysmal atrial fibrillation: Code(s): I48.0 - Paroxysmal atrial fibrillation Status: Acute Assessment and Plan: Chronic, remains rate controlled Continue diltiazem 180 mg daily Apixaban and clopidogrel on hold for GI bleed. SCD in place for DVT ppx (5) Type 2 diabetes mellitus: Code(s): E11.9 - Type 2 diabetes mellitus without complications Status: Acute Assessment and Plan: - hypoglycemia protocol - POC blood glucose ACHS - home medication - glipizide 2.5 mg daily, metformin 1000 mg BID - correct regimen ordered - low dose TIDWM - A1C 5.3 - could stop glipizide upon discharge and even decrease and/or stop Metformin as well as goal for hga1c is under 7 (6) Essential hypertension: Code(s): I10 - Essential (primary) hypertension Status: Chronic Assessment and Plan: Chronic - Positive orthostatics today, will continue to check qshift. Likely related to patients acute blood loss vs dehydration, will give a 1L bolus @ 100 ml/hr x1. If this continues after this resolution of GIB will reassess hydration level as well as adjusting medications - Continue diltiazem 180 mg daily (7) Chronic kidney disease, stage 3: Code(s): N18.30 - Chronic kidney disease, stage 3 unspecified Status: Acute Assessment and Plan: BUN/Cr 30/1.40 with GFR 49 on admission - BUN/Cr 36/1.12 with GFR 47 on am labs - avoid nephrotoxic medications - renally dose medications - monitor I/O Time Spent With Patient Time with patient: 25 - 35 minutes Subjective Date/time seen: 07/11/24 11:06 Interval history: 84-year-old male with paroxysmal atrial fibrillation on chronic anticoagulation, coronary artery disease, hypertension, hyperlipidemia, type 2 diabetes mellitus, chronic obstructive pulmonary disease, untreated obstructive sleep apnea, benign prostatic hyperplasia, chronic kidney disease, and arthritis who presented to the emergency department for evaluation of rectal bleeding. Assuming care. Pt is seen and examined- no bloody stools since admission. Denies any nausea /vomiting and abdominal pain. He had no other complaints denying chest pain, palpitations and shortness of breath. Esophagogastroduodenoscopy & Colonoscopy with DR Monroy today Review of Systems Review of Systems: 12 systems were reviewed and are negative except for as per HPI. All systems reviewed & are unremarkable except as noted in HPI and below Exam Narrative: General: male in no acute respiratory distress who is nontoxic appearing, lying semi recumbent in bed. HEENT: Normocephalic. Atraumatic. Extraocular movement intact. Sclera clear and anicteric. No facial asymmetry. Chest: Lungs are clear to auscultation bilaterally. No wheezes or crackles. CV: Heart was regular rate and rhythm. S1/S2. No murmurs, gallops, or rubs. Abd: Abdomen was soft. Nontender. Nondistended. Positive bowel sounds. No organomegaly or masses. Ext: No clubbing, cyanosis, or edema. 2+ DP pulses bilaterally. Neuro: Patient is alert and oriented x4. Speech is clear. Objective Data Vital Signs Vital Signs: Vital Signs - 24 hr 07/10/24 14:00 07/10/24 20:00 07/10/24 20:36 Temperature 96.4 F L Pulse Rate 85 Respiratory Rate 16 Blood Pressure 122/57 L Pulse Oximetry 100 99 Oxygen Delivery Room Air Room Air 07/10/24 21:24 07/11/24 05:51 07/11/24 06:48 Temperature 97.6 F 97.0 F L Pulse Rate 79 71 82 Respiratory Rate 14 13 18 Blood Pressure 124/58 L 141/50 H Pulse Oximetry 97 99 97 Oxygen Delivery Room Air 07/11/24 06:48 07/11/24 07:40 07/11/24 07:45 Temperature Pulse Rate 82 90 107 H Respiratory Rate 18 Blood Pressure 142/60 H 130/57 L Pulse Oximetry 98 100 Oxygen Delivery 07/11/24 07:50 07/11/24 08:00 Temperature Pulse Rate 117 H Respiratory Rate Blood Pressure 128/90 Pulse Oximetry 100 Oxygen Delivery Room Air Intake/Output Intake/Output: Intake & Output 07/08/24 07/09/24 07/10/24 07/11/24 23:59 23:59 23:59 23:59 Intake Total 240 470 300 Output Total 200 1030 800 Balance 40 -560 -500 Meds/Results Medications: Active Medications Generic Name Dose Route Start Last Admin Trade Name Freq PRN Reason Stop Dose Admin Albuterol 2 puff 07/09/24 19:28 Albuterol Sulfate (*Sp) Aerosol 1 Puff INHALATION Q4H PRN shortness of breath or wheezing Atorvastatin Calcium 40 mg 07/09/24 19:35 07/10/24 16:07 Atorvastatin 40 Mg Tablet PO 40 mg QPM MELISSA Administration Dextrose 12.5 gm 07/09/24 19:27 Dextrose 50% 25 Gm/50 Ml Syringe IV PUSH PRN PRN Hypoglycemia Protocol Diltiazem HCl 180 mg 07/10/24 09:00 07/11/24 07:52 Diltiazem Hcl Cd 180 Mg Cap.24hr PO 180 mg DAILY MELISSA Administration Glucagon 1 mg 07/09/24 19:27 Glucagon For Inj 1 Mg Vial IM PRN PRN Hypoglycemia Protocol Glucose 15 gm 07/09/24 19:27 Glucose Oral Gel 15 Gm Of Glucse In 37.5 Gm Tube PO PRN PRN Hypoglycemia Protocol Dextrose 1,000 mls @ 100 mls/hr 07/09/24 19:27 Dextrose 5% 1,000 Ml IVPB PRN PRN Hypoglycemia Protocol Insulin Aspart 3 - 6 units 07/10/24 08:00 07/11/24 07:31 Insulin Aspart (*Bkc) 100 Units/Ml SUB-Q Not Given TIDWM MELISSA Protocol Insulin Aspart 1 - 3 units 07/09/24 21:00 07/10/24 21:45 Insulin Aspart (*Bkc) 100 Units/Ml SUB-Q Not Given HS MELISSA Protocol Oxybutynin Chloride 15 mg 07/09/24 21:00 07/10/24 21:41 Oxybutynin Chloride Xl 5 Mg Tab.Er.24 PO 15 mg HS MELISSA Administration Pantoprazole Sodium 40 mg 07/10/24 09:00 07/11/24 07:31 Pantoprazole Sodium Iv 40 Mg Vial IV PUSH 40 mg QAM MELISSA Administration Fluticasone/Salmeterol 2 puff 07/09/24 20:00 07/11/24 06:49 Fluticasone/Salmeterol 115-21 Mcg Inhaler 1 Puff INHALATION 2 puff Q12HRT MELISSA Administration Radiology Results: ITS Impressions Abdomen/Pelvis CT 07/09/24 12:57 IMPRESSION: 1. 2.3 cm mass in left kidney, most likely a hemorrhagic cyst, but neoplasm cannot be excluded. Consider abdomen CT without and with contrast. 2. Small left pleural effusion. 3. Chronic interstitial lung disease. Labs Labs: Laboratory Results - last 24 hr 07/10/24 07/10/24 07/10/24 11:40 12:30 16:17 WBC RBC Hgb 7.9 L Hct 25.1 L MCV MCH MCHC RDW Plt Count MPV Sodium Potassium Chloride Carbon Dioxide Anion Gap BUN Creatinine Estim Creat Clear Calc Estimated GFR Glucose POC Capillary Glucose 111 H 130 H Calcium 07/10/24 07/10/24 07/11/24 19:09 20:25 02:10 WBC RBC Hgb 7.5 L 7.4 L Hct 24.2 L 23.5 L MCV MCH MCHC RDW Plt Count MPV Sodium Potassium Chloride Carbon Dioxide Anion Gap BUN Creatinine Estim Creat Clear Calc Estimated GFR Glucose POC Capillary Glucose 124 H Calcium 07/11/24 07/11/24 05:58 07:25 WBC 8.2 RBC 2.28 L Hgb 7.4 L Hct 22.9 L MCV 100.4 H MCH 32.5 MCHC 32.3 RDW 18.1 H Plt Count 205 MPV 9.7 Sodium 140 Potassium 3.2 L Chloride 113 H Carbon Dioxide 22 Anion Gap 5 BUN 20 D Creatinine 0.95 Estim Creat Clear Calc 55 Estimated GFR > 60 Glucose 115 H POC Capillary Glucose 124 H Calcium 7.8 L Quality VTE Prophylaxis VTE prophylaxis: mechanical ordered
[2024-07-11 11:25] LABS: Glucose Point of Care 114 mg/dl (65-105)
--- NOTE | 2024-07-11 13:03 | PC.NURSE ---
To GI Lab per [vinita], IV [22 G R FA]. Report given to [Anant].
[2024-07-11 13:19] LABS: Glucose Point of Care 119 mg/dl (65-105)
[2024-07-11] MEDS: LACTATED RINGERS 1,000 ML 150 ML IV CONT (13:32)
--- NOTE | 2024-07-11 14:28 | P.PNAN_ITS ---
Anes - Initial Pre Proc Eval Procedure: Operation Date: 07/11/24 14:00 Proposed Procedures p Esophagogastroduodenoscopy & Colonoscopy - Ulisses Monroy MD Date/Time: 07/11/24 14:28 Surgeon: Prieto Fuentes MD Pre Op Diagnosis: lower gi bleed Patient Data Age: 84 Gender: M Height: 1.8 m Weight: 90.5 kg Last Vital Signs Temp 97 F L 07/11/24 13:28 Pulse 90 07/11/24 13:28 Resp 18 07/11/24 13:28 BP 146/62 H 07/11/24 13:28 Pulse Ox 97 07/11/24 13:28 O2 Del Method Room Air 07/11/24 13:28 Allergies Allergy/AdvReac Type Severity Reaction Status Date / Time Opioids - Morphine Analogues AdvReac Intermediate Nausea and Verified 07/09/24 15:39 Vomiting Home Medications ?Medication ?Instructions ?Recorded ?Confirmed ?Type albuterol sulfate 90 mcg/actuation 2 puff inhalation Q4H PRN 11/27/19 07/09/24 Rx aerosol inhaler (ProAir HFA) shortness of breath or wheezing #8.5 grams lancets (Lancets, Super Thin) #100 ea 01/30/20 07/09/24 Rx blood sugar diagnostic (Contour #100 ea 03/19/20 07/09/24 Rx Next Test Strips) multivit with minerals-iron 18 1 tablet PO DAILY 12/10/21 07/09/24 History mg-folic ac 400 mcg-vit K 25 mcg tablet (Adults Multivitamin) vitamin B complex (B 1 tablet PO DAILY 12/10/21 07/09/24 History Complex-Vitamin B12 tablet) atorvastatin 40 mg tablet 40 mg PO QPM 10/21/23 07/09/24 History finasteride 5 mg tablet See Rx Instructions .Route 01/02/24 07/09/24 Rx .COMPLEX #90 tabs glipizide 2.5 mg tablet, extended See Rx Instructions .Route 04/04/24 07/09/24 Rx release 24 hr .COMPLEX #90 tabs omega-3 fatty acids 1,000 mg PO DAILY 04/09/24 07/09/24 History apixaban 5 mg tablet (Eliquis) 5 mg PO Q12H 05/02/24 07/09/24 History diltiazem HCl 180 mg 180 mg PO Q24H 05/02/24 07/09/24 History capsule,extended release 24 hr furosemide 40 mg tablet 40 mg PO DAILY 05/02/24 07/09/24 History metformin 1,000 mg tablet 1,000 mg PO BID #180 tabs 05/11/24 07/09/24 Rx fluticasone 250 mcg-salmeterol 50 See Rx Instructions .Route 05/25/24 07/09/24 Rx mcg/dose blistr powdr for .COMPLEX #180 ea inhalation (Wixela Inhub) clopidogrel 75 mg tablet See Rx Instructions .Route 05/28/24 07/09/24 Rx .COMPLEX #90 tabs oxybutynin chloride 15 mg 15 mg PO HS #90 tabs 05/28/24 07/09/24 Rx tablet,extended release 24 hr Laboratory Tests 07/10/24 07/10/24 07/10/24 16:17 19:09 20:25 WBC RBC Hgb 7.5 L g/dL (14.0-18.0) Hct 24.2 L % (42.0-52.0) MCV MCH MCHC RDW Plt Count MPV Sodium Potassium Chloride Carbon Dioxide Anion Gap BUN Creatinine Estim Creat Clear Calc Estimated GFR Glucose POC Capillary Glucose 130 H mg/dl 124 H mg/dl (65-105) (65-105) Calcium 07/11/24 07/11/24 07/11/24 02:10 05:58 07:25 WBC 8.2 K/mm3 (4.5-10.0) RBC 2.28 L M/mm3 (4.6-6.20) Hgb 7.4 L g/dL 7.4 L g/dL (14.0-18.0) (14.0-18.0) Hct 23.5 L % 22.9 L % (42.0-52.0) (42.0-52.0) MCV 100.4 H fl (80-100) MCH 32.5 pg (26-34) MCHC 32.3 g/dl (32-36) RDW 18.1 H % (11.5-14.5) Plt Count 205 k/mm3 (150-375) MPV 9.7 fl (7.4-10.4) Sodium 140 mmol/L (137-145) Potassium 3.2 L mmol/L (3.4-5.0) Chloride 113 H mmol/L (98-107) Carbon Dioxide 22 mmol/L (22-30) Anion Gap 5 mmol/L (4-12) BUN 20 D mg/dL (9-20) Creatinine 0.95 mg/dL (0.7-1.3) Estim Creat Clear Calc 55 ml/min Estimated GFR > 60 (59 - ) Glucose 115 H mg/dL (65-110) POC Capillary Glucose 124 H mg/dl (65-105) Calcium 7.8 L mg/dL (8.4-10.2) 07/11/24 07/11/24 11:19 13:16 WBC RBC Hgb Hct MCV MCH MCHC RDW Plt Count MPV Sodium Potassium Chloride Carbon Dioxide Anion Gap BUN Creatinine Estim Creat Clear Calc Estimated GFR Glucose POC Capillary Glucose 114 H mg/dl 119 H mg/dl (65-105) (65-105) Calcium Patient hx anesthesia problems: none Family hx anesthesia problems: none Results Review: All pre-operative results and documents have been reviewed as part of the pre- operative evaluation. [facility] Past Medical History Medical History Chronic kidney disease, stage 3 Chronic anticoagulation Cerebral cavernoma Dorsalgia Obstructive sleep apnea intolerant to CPAP Lumbosacral stenosis with neurogenic claudication with epidural steroid injection L4-L5 December 2022 Mild cognitive impairment COPD with asthma Lumbosacral radiculopathy Claudication of both lower extremities Postlaminectomy syndrome Lumbosacral spondylosis Long COVID Atrial fibrillation Benign non-nodular prostatic hyperplasia without lower urinary tract symptoms Essential hypertension 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 Surgical History Surgical History History of cardiac catheterization (03/2023) multivessel coronary disease to 80% stenosis of the proximal LAD 70% stenosis midportion of LAD very small diagonal branch, proximal and mid left circ have luminal irregularities 90% long stenosis left circumflex, small caliber obtuse marginal branch with mild diffuse disease obtuse marginal 2 has a moderate stenosis of the midportion right coronary artery is dominant vessel with 90% stenosis of the midportion and mid RPDA has 2 tandem stenosis is of 60-70% the patient was referred for CV surgery however the patient then underwent staged procedure at [facility] with PCI and stent to mid distal left circ and in September 2023 he had a PCI to the mid RCA History of back surgery Lumbar fusion History of cataract surgery Family History Family History Sibling Patient's sister is in good health Patient's brother is in good health Father Heart disease Acute myocardial infarction Telangiectasia Ibyfz-Dsetm-Titoe disease Angiodysplasia AVM (arteriovenous malformation) Mother Acute myocardial infarction Social History Social History Social History: Surrogate medical decision maker: Genoveva Villa, spouse. Code status: DO NOT RESUSCITATE. Smoking packs per day: 0.5 Smoking cigarettes per day: 10.0 Years smoked: 2 Smoking pack-years: 1.00 Smoking status: Former smoker Tobacco type: cigarettes and cigars Second hand tobacco smoke exposure: No Smoking end date: 05/16/1950 Alcohol intake: never Substance use: never Substance use type: does not use Do You Feel Safe in your Home?: Yes Lack of Transportation: No Lack of Food: Never True Current Housing: I Have Housing Concerned About Future Housing: No Difficulty Paying Gas/Electric Bills: No Difficulty Paying for Meds: No Currently Unemployed: No Education: Grade School Difficulty w/ Childcare or Family Care: No Living arrangements: with family Additional living arrangements comments: Lives with in [place]. 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 Spiritual care concerns: No Anes - Eval Final PreProcedure Day of Procedure 07/11/24 14:28 Patient weight: obese Lungs: normal air movement Airway: Mallampati scale and special considerations (Edentulous. ) Neurological: alert and oriented Last oral intake: >/= 8 hours ASA classification: IV Emergent: no Anesthetic plan: proceed Anesthesia type and monitoring: general GIVS and standard monitoring Results Review: All pre-operative results and documents have been reviewed as part of the pre- operative evaluation. HTN, Hyperlipidemia, DM Afib on AC, now w anemia, s/p transfusion 1 U PRBCs, CKD st 3, s/p PTCA circ 09/06. DNR form addressed and signed w goal specific tx selected. Informed Consent: The patient's anesthetic plan and its attendant risks and benefits were discussed with the patient/family/POA. Questions were solicited and answers provided to the satisfaction of the patient/family/POA.
--- NOTE | 2024-07-11 15:01 | SUR.OPER ---
EGD start 1455 end 1458, Colonoscopy start 150
--- NOTE | 2024-07-11 15:33 | P.PNGI_ITS ---
Progress Note: A&P Assessment and Plan (1) GI bleed: Qualifiers: GI bleed type/associated pathology: anorectal hemorrhage Qualified Code(s): K62.5 - Hemorrhage of anus and rectum Code(s): K92.2 - Gastrointestinal hemorrhage, unspecified Status: Acute Assessment and Plan: See EGD and colonoscopy reports. Most likely source of bleeding: Diverticulosis, however there is no active bleeding or stigmata of recent bleeding. Patient can be safely discharged tomorrow from our standpoint unless there are other concomitant problems. He can try regular diet tonight. Pantoprazole discontinued. (2) Acute lower GI bleeding: Code(s): K92.2 - Gastrointestinal hemorrhage, unspecified Status: Acute Subjective Date/time seen: 07/11/24 15:33 Interval history: No further GI bleeding. Objective Data Vital Signs Vital Signs: Vital Signs - 24 hr 07/10/24 20:00 07/10/24 20:36 07/10/24 21:24 Temperature 97.6 F Pulse Rate 79 Respiratory Rate 14 Blood Pressure 124/58 L Pulse Oximetry 99 97 Oxygen Delivery Room Air Room Air 07/11/24 05:51 07/11/24 06:48 07/11/24 06:48 Temperature 97.0 F L Pulse Rate 71 82 82 Respiratory Rate 13 18 18 Blood Pressure 141/50 H Pulse Oximetry 99 97 Oxygen Delivery Room Air 07/11/24 07:40 07/11/24 07:45 07/11/24 07:50 Temperature Pulse Rate 90 107 H 117 H Respiratory Rate Blood Pressure 142/60 H 130/57 L 128/90 Pulse Oximetry 98 100 100 Oxygen Delivery 07/11/24 08:00 07/11/24 13:28 Temperature 97 F L Pulse Rate 90 Respiratory Rate 18 Blood Pressure 146/62 H Pulse Oximetry 97 Oxygen Delivery Room Air Room Air Intake/Output Intake/Output: Intake & Output 07/08/24 07/09/24 07/10/24 07/11/24 23:59 23:59 23:59 23:59 Intake Total 240 470 590 Output Total 200 1030 800 Balance 98 -779 -041 Meds/Results Medications: Active Medications Generic Name Dose Route Start Last Admin Trade Name Freq PRN Reason Stop Dose Admin Albuterol 2 puff 07/09/24 19:28 Albuterol Sulfate (*Sp) Aerosol 1 Puff INHALATION Q4H PRN shortness of breath or wheezing Atorvastatin Calcium 40 mg 07/09/24 19:35 07/10/24 16:07 Atorvastatin 40 Mg Tablet PO 40 mg QPM MELISSA Administration Dextrose 12.5 gm 07/09/24 19:27 Dextrose 50% 25 Gm/50 Ml Syringe IV PUSH PRN PRN Hypoglycemia Protocol Diltiazem HCl 180 mg 07/10/24 09:00 07/11/24 07:52 Diltiazem Hcl Cd 180 Mg Cap.24hr PO 180 mg DAILY MELISSA Administration Glucagon 1 mg 07/09/24 19:27 Glucagon For Inj 1 Mg Vial IM PRN PRN Hypoglycemia Protocol Glucose 15 gm 07/09/24 19:27 Glucose Oral Gel 15 Gm Of Glucse In 37.5 Gm Tube PO PRN PRN Hypoglycemia Protocol Dextrose 1,000 mls @ 100 mls/hr 07/09/24 19:27 Dextrose 5% 1,000 Ml IVPB PRN PRN Hypoglycemia Protocol Lactated Ringer's 1,000 mls @ 150 mls/hr 07/11/24 13:25 07/11/24 15:28 Lr - Lactated Ringers Iv IV CONT 150 mls/hr .Q6H40M MELISSA Infusion Insulin Aspart 3 - 6 units 07/10/24 08:00 07/11/24 11:26 Insulin Aspart (*Bkc) 100 Units/Ml SUB-Q Not Given TIDWM MELISSA Protocol Insulin Aspart 1 - 3 units 07/09/24 21:00 07/10/24 21:45 Insulin Aspart (*Bkc) 100 Units/Ml SUB-Q Not Given HS [facility] Protocol Oxybutynin Chloride 15 mg 07/09/24 21:00 07/10/24 21:41 Oxybutynin Chloride Xl 5 Mg Tab.Er.24 PO 15 mg HS MELISSA Administration Fluticasone/Salmeterol 2 puff 07/09/24 20:00 07/11/24 06:49 Fluticasone/Salmeterol 115-21 Mcg Inhaler 1 Puff INHALATION 2 puff Q12HRT MELISSA Administration Radiology Results: ITS Impressions Abdomen/Pelvis CT 07/09/24 12:57 IMPRESSION: 1. 2.3 cm mass in left kidney, most likely a hemorrhagic cyst, but neoplasm cannot be excluded. Consider abdomen CT without and with contrast. 2. Small left pleural effusion. 3. Chronic interstitial lung disease. Labs Labs: Laboratory Results - last 24 hr 07/10/24 07/10/24 07/10/24 16:17 19:09 20:25 WBC RBC Hgb 7.5 L Hct 24.2 L MCV MCH MCHC RDW Plt Count MPV Sodium Potassium Chloride Carbon Dioxide Anion Gap BUN Creatinine Estim Creat Clear Calc Estimated GFR Glucose POC Capillary Glucose 130 H 124 H Calcium 07/11/24 07/11/24 07/11/24 02:10 05:58 07:25 WBC 8.2 RBC 2.28 L Hgb 7.4 L 7.4 L Hct 23.5 L 22.9 L MCV 100.4 H MCH 32.5 MCHC 32.3 RDW 18.1 H Plt Count 205 MPV 9.7 Sodium 140 Potassium 3.2 L Chloride 113 H Carbon Dioxide 22 Anion Gap 5 BUN 20 D Creatinine 0.95 Estim Creat Clear Calc 55 Estimated GFR > 60 Glucose 115 H POC Capillary Glucose 124 H Calcium 7.8 L 07/11/24 07/11/24 11:19 13:16 WBC RBC Hgb Hct MCV MCH MCHC RDW Plt Count MPV Sodium Potassium Chloride Carbon Dioxide Anion Gap BUN Creatinine Estim Creat Clear Calc Estimated GFR Glucose POC Capillary Glucose 114 H 119 H Calcium
[2024-07-11 15:47] LABS: Glucose Point of Care 115 mg/dl (65-105)
[2024-07-11] MEDS: ATORVASTATIN 40 MG TABLET PO (17:15)
[2024-07-11] MEDS: POTASSIUM CHLORIDE 20 MEQ PACKET (FOR LIQUID) 40 MEQ PO (17:16)
[2024-07-11] MEDS: oxyBUTYnin CHLORIDE XL 5 MG TAB.ER.24 15 MG PO (20:42)
[2024-07-11 20:47] LABS: Glucose Point of Care 140 mg/dl (65-105)
[2024-07-12 05:44] VITALS: BP 121/62; PULSE 84; RESP 18; TEMP 36.6; O2SAT 94
[2024-07-12 06:50] LABS: Hematocrit 23.8 % (42.0-52.0); Hemoglobin 7.1 g/dL (14.0-18.0); Mean Corpuscular HGB Conc 29.8 g/dl (32-36); Mean Corpuscular Hemoglobin 30.7 pg (26-34); Mean Platelet Volume 9.4 fl (7.4-10.4); Platelet Count Result 219 k/mm3 (150-375); Red Blood Count 2.31 M/mm3 (4.6-6.20); Red Cell Distribution Width 19.4 % (11.5-14.5); White Blood Count 6.8 K/mm3 (4.5-10.0)
[2024-07-12 07:07] LABS: Potassium 3.7 mmol/L (3.4-5.0)
[2024-07-12 07:10] LABS: Anion Gap 5 mmol/L (4-12); Blood Urea Nitrogen 13 mg/dL (9-20); Calcium 7.7 mg/dL (8.4-10.2); Carbon Dioxide 22 mmol/L (22-30); Chloride 113 mmol/L (98-107); Estimated CRCL calculation 58 ml/min; Estimated Glomerular Filt Rate > 60; Glucose 112 mg/dL (65-110); Sodium 140 mmol/L (137-145)
[2024-07-12 07:58] LABS: Glucose Point of Care 109 mg/dl (65-105)
[2024-07-12] MEDS: FLUTICASONE/SALMETEROL 115-21 MCG INHALER 1 PUFF 2 PUFF INHALATION ×2 (07:58→21:09)
[2024-07-12 08:00] VITALS: BP 126/62; PULSE 91; RESP 20; TEMP 36.3; O2SAT 100
[2024-07-12 08:06] VITALS: BP 135/62; PULSE 105; RESP 20; TEMP 36.3; O2SAT 99
[2024-07-12 08:07] VITALS: BP 132/101; PULSE 106; RESP 20; TEMP 36.3; O2SAT 93
[2024-07-12] MEDS: dilTIAZem HCL CD 180 MG CAP.24HR PO (09:30)
[2024-07-12 11:30] LABS: Glucose Point of Care 155 mg/dl (65-105)
--- NOTE | 2024-07-12 13:44 | WPDGIPROGNO ---
Progress Note: A&P Assessment and Plan (1) Acute lower GI bleeding: Code(s): K92.2 - Gastrointestinal hemorrhage, unspecified Status: Acute Assessment and Plan: no stigmata of bleeding when had scopes yesterday, wonder if most likely was diverticula source h/h low but stable recommend to hold blood thinners 5-7 days no need to repeat colonoscopy monitor h/h as outpatient and also check for more signs of bleeding (2) Chronic anticoagulation: Code(s): Z79.01 - long-term (current) use of anticoagulants Status: Acute (3) Acute blood loss anemia: Code(s): D62 - Acute posthemorrhagic anemia Status: Acute (4) Chronic kidney disease, stage 3: Code(s): N18.30 - Chronic kidney disease, stage 3 unspecified Status: Acute (5) Paroxysmal atrial fibrillation: Code(s): I48.0 - Paroxysmal atrial fibrillation Status: Acute Subjective Date/time seen: 07/12/24 13:44 Interval history: no more bleeding and he is comfortable egd/colonoscopy, no signs of bleeding, noted colon diverticulosis Review of Systems Review of Systems: All systems reviewed & are unremarkable except as noted in HPI and below Exam Const: General: comfortable and no acute distress HENMT: Face/Nose/Sinus: Normal nares present Eyes: General: appearance normal, both eyes and all related structures Neck: Neck: no JVD Resp: Auscultation: clear to auscultation bilaterally Cardio: Rate: regular rate Rhythm: regular rhythm GI: Inspection: non-distended GI Palp: Yes Soft to palpation Skin: General skin exam: normal color Neuro: Speech: normal speech Extrem: General: normal to inspection Psych: Mental Status: mental status grossly normal Objective Data Vital Signs Vital Signs: Vital Signs - 24 hr 07/11/24 15:31 07/11/24 15:41 07/11/24 15:51 Temperature Pulse Rate 73 63 73 Respiratory Rate 12 17 17 Blood Pressure 113/59 L 123/55 L 138/79 Pulse Oximetry 100 97 98 Oxygen Delivery Nasal Cannula Room Air Room Air Oxygen Flow Rate 4 Fraction of Inspired Oxygen 07/11/24 16:22 07/11/24 20:00 07/11/24 20:00 Temperature 98.6 F 97.4 F L 97.4 F L Pulse Rate 97 89 100 Respiratory Rate 20 18 20 Blood Pressure 129/62 135/67 130/64 Pulse Oximetry 99 96 99 Oxygen Delivery Oxygen Flow Rate Fraction of Inspired Oxygen 07/11/24 20:00 07/11/24 20:00 07/11/24 20:20 Temperature 97.4 F L Pulse Rate 120 H Respiratory Rate 22 H Blood Pressure 114/60 Pulse Oximetry 99 96 Oxygen Delivery Room Air Room Air Oxygen Flow Rate Fraction of Inspired Oxygen 21 07/11/24 20:20 07/12/24 05:44 07/12/24 08:00 Temperature 97.8 F 97.4 F L Pulse Rate 86 84 91 Respiratory Rate 18 18 20 Blood Pressure 121/62 126/62 Pulse Oximetry 94 100 Oxygen Delivery Oxygen Flow Rate Fraction of Inspired Oxygen 07/12/24 08:06 07/12/24 08:07 07/12/24 08:57 Temperature 97.4 F L 97.4 F L Pulse Rate 105 H 106 H Respiratory Rate 20 20 Blood Pressure 135/62 132/101 H Pulse Oximetry 99 93 Oxygen Delivery Room Air Oxygen Flow Rate Fraction of Inspired Oxygen Intake/Output Intake/Output: Intake & Output 07/09/24 07/10/24 07/11/24 07/12/24 23:59 23:59 23:59 23:59 Intake Total 240 470 830 950 Output Total 200 1030 800 400 Balance 40 -560 30 550 Meds/Results Medications: Active Medications Generic Name Dose Route Start Last Admin Trade Name Freq PRN Reason Stop Dose Admin Albuterol 2 puff 07/09/24 19:28 Albuterol Sulfate (*Sp) Aerosol 1 Puff INHALATION Q4H PRN shortness of breath or wheezing Atorvastatin Calcium 40 mg 07/09/24 19:35 07/11/24 17:15 Atorvastatin 40 Mg Tablet PO 40 mg QPM MELISSA Administration Dextrose 12.5 gm 07/09/24 19:27 Dextrose 50% 25 Gm/50 Ml Syringe IV PUSH PRN PRN Hypoglycemia Protocol Diltiazem HCl 180 mg 07/10/24 09:00 07/12/24 09:30 Diltiazem Hcl Cd 180 Mg Cap.24hr PO 180 mg DAILY MELISSA Administration Glucagon 1 mg 07/09/24 19:27 Glucagon For Inj 1 Mg Vial IM PRN PRN Hypoglycemia Protocol Glucose 15 gm 07/09/24 19:27 Glucose Oral Gel 15 Gm Of Glucse In 37.5 Gm Tube PO PRN PRN Hypoglycemia Protocol Dextrose 1,000 mls @ 100 mls/hr 07/09/24 19:27 Dextrose 5% 1,000 Ml IVPB PRN PRN Hypoglycemia Protocol Insulin Aspart 3 - 6 units 07/10/24 08:00 07/12/24 13:07 Insulin Aspart (*Bkc) 100 Units/Ml SUB-Q Not Given TIDWM MELISSA Protocol Insulin Aspart 1 - 3 units 07/09/24 21:00 07/12/24 01:40 Insulin Aspart (*Bkc) 100 Units/Ml SUB-Q Not Given HS MELISSA Protocol Oxybutynin Chloride 15 mg 07/09/24 21:00 07/11/24 20:42 Oxybutynin Chloride Xl 5 Mg Tab.Er.24 PO 15 mg HS MELISSA Administration Fluticasone/Salmeterol 2 puff 07/09/24 20:00 07/12/24 07:58 Fluticasone/Salmeterol 115-21 Mcg Inhaler 1 Puff INHALATION 2 puff Q12HRT MELISSA Administration Radiology Results: ITS Impressions Abdomen/Pelvis CT 07/09/24 12:57 IMPRESSION: 1. 2.3 cm mass in left kidney, most likely a hemorrhagic cyst, but neoplasm cannot be excluded. Consider abdomen CT without and with contrast. 2. Small left pleural effusion. 3. Chronic interstitial lung disease. Labs Labs: Laboratory Results - last 24 hr 07/11/24 07/11/24 07/12/24 15:44 20:44 06:13 WBC 6.8 RBC 2.31 L Hgb 7.1 L Hct 23.8 L MCV 103.0 H MCH 30.7 D MCHC 29.8 L RDW 19.4 H Plt Count 219 MPV 9.4 Sodium 140 Potassium 3.7 Chloride 113 H Carbon Dioxide 22 Anion Gap 5 BUN 13 D Creatinine 0.91 Estim Creat Clear Calc 58 Estimated GFR > 60 Glucose 112 H POC Capillary Glucose 115 H 140 H Calcium 7.7 L 07/12/24 07/12/24 07:52 11:23 WBC RBC Hgb Hct MCV MCH MCHC RDW Plt Count MPV Sodium Potassium Chloride Carbon Dioxide Anion Gap BUN Creatinine Estim Creat Clear Calc Estimated GFR Glucose POC Capillary Glucose 109 H 155 H Calcium
[2024-07-12 14:00] VITALS: BP 116/50; PULSE 83; RESP 20; TEMP 36.8; O2SAT 99
[2024-07-12 16:36] LABS: Glucose Point of Care 149 mg/dl (65-105)
[2024-07-12] MEDS: ATORVASTATIN 40 MG TABLET PO (19:21)
[2024-07-12 21:05] VITALS: BP 144/61; PULSE 82; RESP 20; TEMP 36.6; O2SAT 99
[2024-07-12 21:42] LABS: Glucose Point of Care 134 mg/dl (65-105)
[2024-07-12] MEDS: oxyBUTYnin CHLORIDE XL 5 MG TAB.ER.24 15 MG PO (21:43)
--- NOTE | 2024-07-13 00:35 | ADMGEN ---
This patient, Christian Villa I, was admitted to [facility] Surg Room 332-01. Patient/family oriented to hospital policies and general routines including ID bracelet, bed and alarms, visiting hours, pain management, procedures, bathroom and other care routines, personal items, smoking policy, room service/diet, and visiting hours. Information on how to activate the Rapid Response Team has been discussed. Patient/Family are encouraged to report perceived risks to care and to ask questions if they do not understand what they are told or what they should do.
[2024-07-13 05:25] VITALS: BP 162/71; PULSE 74; RESP 18; TEMP 36.5; O2SAT 100
[2024-07-13 06:30] LABS: Hematocrit 23.5 % (42.0-52.0); Hemoglobin 7.1 g/dL (14.0-18.0); Mean Corpuscular HGB Conc 30.2 g/dl (32-36); Mean Corpuscular Hemoglobin 31.1 pg (26-34); Mean Corpuscular Volume 103.1 fl (80-100); Platelet Count Result 227 k/mm3 (150-375); Red Blood Count 2.28 M/mm3 (4.6-6.20); Red Cell Distribution Width 19.3 % (11.5-14.5); White Blood Count 8.5 K/mm3 (4.5-10.0)
[2024-07-13 06:41] LABS: Anion Gap 6 mmol/L (4-12); Blood Urea Nitrogen 12 mg/dL (9-20); Calcium 7.8 mg/dL (8.4-10.2); Carbon Dioxide 22 mmol/L (22-30); Chloride 112 mmol/L (98-107); Estimated CRCL calculation 49 ml/min; Estimated Glomerular Filt Rate > 60; Glucose 115 mg/dL (65-110); Potassium 3.9 mmol/L (3.4-5.0); Sodium 140 mmol/L (137-145)
[2024-07-13 07:45] LABS: Glucose Point of Care 117 mg/dl (65-105)
[2024-07-13 07:49] VITALS: BP 139/78; PULSE 87; RESP 18; TEMP 36.4; O2SAT 100
[2024-07-13 07:50] VITALS: BP 137/53; PULSE 84; RESP 18; TEMP 36.4; O2SAT 98
[2024-07-13 07:51] VITALS: BP 117/53; PULSE 76; RESP 18; TEMP 36.4; O2SAT 90
[2024-07-13] MEDS: dilTIAZem HCL CD 180 MG CAP.24HR PO (08:15)
[2024-07-13] MEDS: FLUTICASONE/SALMETEROL 115-21 MCG INHALER 1 PUFF 2 PUFF INHALATION (10:44)
[2024-07-13 10:46] VITALS: O2SAT 98
[2024-07-13 11:26] LABS: Glucose Point of Care 148 mg/dl (65-105)
--- NOTE | 2024-07-13 12:37 | PCNFU ---
Nutrition Follow-Up Complete: Inadequate energy intake related to NPO status as evidenced by diet orders Goal:Diet order PO intake 75% or greater Pt meeting goals. Pt current nutrition is regular, Ensure Enlive BID (350kcals, 20g protein). Nutrition recommendation: continue with current plan of care Last recorded weight is 90.5 kg. Bowel Motility: +BM 07/12 Labs Reviewed: Hgb:7.1, HCT:23.5, Glu:115 Meds Noted: insulin Skin: WNL Additional Notes: Pt on a regular diet, intake 75-100% most all meals, Ensure Enlive in place. No further nutrition recommendations. Monitor for diet orders, intake, tolerance, wt, labs. Follow up in 7 days.
[2024-07-13 14:00] VITALS: BP 139/53; PULSE 75; RESP 18; TEMP 36.9; O2SAT 100
--- NOTE | 2024-07-13 14:51 | PM.DS ---
DS: Admitting Diagnosis Discharge Date 07/13 Admitting Diagnosis rectal bleeding DS: Discharge Diagnosis Discharge Diagnosis (1) GI bleed: Qualifiers: GI bleed type/associated pathology: anorectal hemorrhage Qualified Code(s): K62.5 - Hemorrhage of anus and rectum Code(s): K92.2 - Gastrointestinal hemorrhage, unspecified Status: Acute (2) Acute blood loss anemia: Code(s): D62 - Acute posthemorrhagic anemia Status: Acute (3) Chronic anticoagulation: Code(s): Z79.01 - retirement (current) use of anticoagulants Status: Acute (4) Paroxysmal atrial fibrillation: Code(s): I48.0 - Paroxysmal atrial fibrillation Status: Acute (5) Type 2 diabetes mellitus: Code(s): E11.9 - Type 2 diabetes mellitus without complications Status: Acute (6) Essential hypertension: Code(s): I10 - Essential (primary) hypertension Status: Chronic (7) Chronic kidney disease, stage 3: Code(s): N18.30 - Chronic kidney disease, stage 3 unspecified Status: Acute DS: Summary Hospital Course Hospital Course: This is an 84-year-old male with paroxysmal atrial fibrillation on chronic anticoagulation, coronary artery disease, hypertension, hyperlipidemia, type 2 diabetes mellitus, chronic obstructive pulmonary disease, untreated obstructive sleep apnea, benign prostatic hyperplasia, chronic kidney disease, and arthritis who presented to the emergency department for evaluation of rectal bleeding. The patient provides the following history. He noticed bright red blood in his stools on Tuesday and he reports having several bloody stool since that time. At times he does feel constipated in admits that he will occasionally strain to have a bowel movement but denies having issues with that recently. With further questioning he does admit that he has been more tired and weak over the past couple of weeks. He is not having any pain in his abdomen or rectum and denies tenesmus. He also denies epigastric pain, indigestion, bloating, belching, hematemesis, melena, chest pain, shortness of breath, syncope, and near syncope. Colonoscopy in the past had shown large uncomplicated hemorrhoids and medium diverticuli. Last dose of apixaban and clopidogrel was last evening. Several issues were addressed: # acute low GI bleed: Gi was consulted. EGD/ done: no stigmata of bleeding when had scopes yesterday, wonder if most likely was diverticula source h/h low but stable recommend to hold blood thinners 5-7 days no need to repeat colonoscopy monitor h/h as outpatient and also check for more signs of bleeding will order cbc to be repeated on mom if any symptoms return- he is to come back to ed # afib # chronic anticoag. use - Continue diltiazem 180 mg daily Apixaban and clopidogrel on hold for GI bleed. recommend to hold blood thinners 5-7 days- untill cbc is repeated, no more s/s of bleeding and ok to restart with PCP # t2dm - home medication - glipizide 2.5 mg daily, metformin 1000 mg BID - A1C 5.3 - could stop glipizide upon discharge and decrease Metformin to 1000 mg daily goal for hga1c is under 7 f/u in 3 month for repeated hga1c and bmp Status at Discharge Functional status at discharge: independent ambulation Overall status at discharge: patient is progressing back to baseline Time Spent with Patient Time attestation: Total time spent providing and/or coordinating discharge services: Exam Narrative: General: male in no acute respiratory distress who is nontoxic appearing, lying semi recumbent in bed. HEENT: Normocephalic. Atraumatic. Extraocular movement intact. Sclera clear and anicteric. No facial asymmetry. Chest: Lungs are clear to auscultation bilaterally. No wheezes or crackles. CV: Heart was regular rate and rhythm. S1/S2. No murmurs, gallops, or rubs. Abd: Abdomen was soft. Nontender. Nondistended. Positive bowel sounds. No organomegaly or masses. Ext: No clubbing, cyanosis, or edema. 2+ DP pulses bilaterally. Neuro: Patient is alert and oriented x4. Speech is clear. Const: General: comfortable DS: Data Data Completed and Pending Labs on day of discharge: Labs from last 24 hours 07/13/24 07/13/24 07/13/24 11:22 07:40 06:18 WBC 8.5 RBC 2.28 L Hgb 7.1 L Hct 23.5 L MCV 103.1 H MCH 31.1 MCHC 30.2 L RDW 19.3 H Plt Count 227 MPV 9.0 Sodium 140 Potassium 3.9 Chloride 112 H Carbon Dioxide 22 Anion Gap 6 BUN 12 Creatinine 1.09 Estim Creat Clear Calc 49 Estimated GFR > 60 Glucose 115 H POC Capillary Glucose 148 H 117 H Calcium 7.8 L 07/12/24 07/12/24 21:04 16:34 WBC RBC Hgb Hct MCV MCH MCHC RDW Plt Count MPV Sodium Potassium Chloride Carbon Dioxide Anion Gap BUN Creatinine Estim Creat Clear Calc Estimated GFR Glucose POC Capillary Glucose 134 H 149 H Calcium Discharge Plan Discharge Attending physician on discharge: Forest Bernal Consulting providers: Kristyn Jordan; Shady Dee Discharging Clinician: Griselda Figueroa Patient Disposition: Home, Self-Care Activity: september shower Diet: diabetic Discharge Instructions: you were admoitted for rectal bleed. GI was consulted and you had EGD/Colonoscopy recommend to hold blood thinners 5-7 days no need to repeat colonoscopy monitor h/h as outpatient and also check for more signs of bleeding. For Afib: - Continue diltiazem 180 mg daily Apixaban and clopidogrel on hold for GI bleed. recommend to hold blood thinners 5-7 days- untill cbc is repeated, no more s/s of bleeding and ok to restart with PCP For diabetes: - home medication - glipizide 2.5 mg daily, metformin 1000 mg BID - A1C 5.3 - could stop glipizide upon discharge and decrease Metformin to 1000 mg daily goal for hga1c is under 7 f/u in 3 month for repeated hga1c and bmp Patient Instructions: Antibiotic Form Patient Language: Norwegian Stand Alone Forms: General Discharge Information Follow-up/Referrals: Patt Castellon APRN [Primary Care Provider] - 1 Week Shady Dee MD [Physician] - 2 Weeks Discharge Medications: Continued vitamin B complex [B Complex-Vitamin B12] Tablet 1 tablet PO DAILY Adults Multivitamin 18 mg iron-400 mcg-25 mcg Tablet 1 tablet PO DAILY atorvastatin 40 mg tablet 40 mg PO QPM omega-3 fatty acids Capsule 1,000 mg PO DAILY albuterol sulfate [ProAir HFA] 90 mcg/actuation HFA aerosol inhaler 2 puff INHALATION Q4H PRN (Reason: shortness of breath or wheezing) Qty: 8.5 5RF furosemide 40 mg tablet 40 mg PO DAILY diltiazem HCl 180 mg capsule,extended release 24hr 180 mg PO Q24H Rx Instructions: TAKE 1 CAPSULE BY MOUTH EVERY DAY (DME) lancets [Lancets, Super Thin] Misc See Rx Instructions .ROUTE .MEDSUPPLY Qty: 100 2RF Rx Instructions: Use to check blood sugar daily (DME) Contour Next Test Strips Strip See Rx Instructions .ROUTE .MEDSUPPLY Qty: 100 0RF Rx Instructions: Use to test blood sugar once daily finasteride 5 mg tablet See Rx Instructions .ROUTE .COMPLEX Qty: 90 1RF Dose Instruction: TAKE 1 TABLET BY MOUTH EVERY DAY Rx Instructions: TAKE 1 TABLET BY MOUTH EVERY DAY fluticasone propion-salmeterol [Wixela Inhub] 250-50 mcg/dose blister with device See Rx Instructions .ROUTE .COMPLEX Qty: 180 1RF Dose Instruction: INHALE 1 PUFF BY MOUTH TWICE A DAY Rx Instructions: INHALE 1 PUFF BY MOUTH TWICE A DAY oxybutynin chloride 15 mg tablet extended release 24hr 15 mg PO HS Qty: 90 1RF Changed metformin 1,000 mg tablet 1,000 mg PO DAILY Qty: 180 1RF Held Eliquis 5 mg tablet 5 mg PO Q12H Hold Instructions: Resume on 07/20/24. hold until cbc is repeated , no more s/sof bleeding and ok to restart med with pcp Rx Instructions: TAKE 1 TABLET BY MOUTH TWICE A DAY clopidogrel 75 mg tablet See Rx Instructions .ROUTE .COMPLEX Qty: 90 2RF Hold Instructions: Resume on 07/20/24. hold 5-7 days Dose Instruction: TAKE 1 TABLET BY MOUTH EVERY DAY Rx Instructions: TAKE 1 TABLET BY MOUTH EVERY DAY Discontinued glipizide 2.5 mg tablet extended release 24hr See Rx Instructions .ROUTE .COMPLEX Qty: 90 1RF Dose Instruction: TAKE 1 TABLET BY MOUTH EVERY DAY Rx Instructions: TAKE 1 TABLET BY MOUTH EVERY DAY Other Ambulatory Orders: Complete Blood Count no Diff (Routine) Timeframe: 3 Days Location: Determined by Patient Ordered By: Griselda Figueroa Date of admission: 07/12/24 15:16 Primary Care Provider: Patt Castellon Admitting Provider: Prieto Fuentes Attending physician on admission: Prieto Fuentes Condition: Stable Quality VTE Prophylaxis VTE prophylaxis: mechanical ordered Hospitalist MIPS Heart Failure (Exclusion) Patient has history of Heart Transplant or Left Ventricular Assistive Device?: No IF YES, STOP HERE Heart Failure (Qualifier) Patient has current or prior documentation of LVEF less than or equal to 40%, or mod/servere depressed LVSF?: No IF NO, STOP HERE
--- NOTE | 2024-07-13 14:56 | PM.IMPN ---
Progress Note: A&P Assessment and Plan (1) GI bleed: Qualifiers: GI bleed type/associated pathology: anorectal hemorrhage Qualified Code(s): K62.5 - Hemorrhage of anus and rectum Code(s): K92.2 - Gastrointestinal hemorrhage, unspecified Status: Acute Assessment and Plan: Bright red blood in his stools on Tuesday and reports having several bloody stool since that time. At times he does feel constipated in admits that he will occasionally strain. Patient on eliquis and plavix for afib and stents, currently on hold. Previous colonoscopies noted large internal hemorrhoids as well as medium-sized diverticuli which may very well be the culprit as he describes passing bright red blood. CT abdomen/pelvis: 1. 2.3 cm mass in left kidney, most likely a hemorrhagic cyst, but neoplasm cannot be excluded. Consider abdomen CT without and with contrast. 2. Small left pleural effusion. 3.. Chronic interstitial lung disease. - Pantoprazole BID - Diet: clear liquid - DVT Px: SCDs. Avoid anti-coagulations - Monitor serum electrolytes, CBC, hemoglobin/hematocrit q.8 hours. If hemoglobin drops below 7 transfuse packed red blood cells - Monitor for bloody bowel movements,chest pain,SOB or dizziness/lightheadedness - GI consulted EGD and colonoscopy done GI is following- anticipate discharge tomorrow if stable overnight (2) Acute blood loss anemia: Code(s): D62 - Acute posthemorrhagic anemia Status: Acute Assessment and Plan: Hgb 7.8 on admission. Patient has had a little over 6 g drop in hemoglobin compared to labs drawn 2 months ago where Hgb 14. Patient did have an H/H of 6.8/21.8, given a unit at that time. Will continue to trend at this point and transfuse if Hgb <7. 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 SCD in place for DVT ppx (5) Type 2 diabetes mellitus: Code(s): E11.9 - Type 2 diabetes mellitus without complications Status: Acute Assessment and Plan: - hypoglycemia protocol - POC blood glucose ACHS - home medication - glipizide 2.5 mg daily, metformin 1000 mg BID - correct regimen ordered - low dose TIDWM - A1C 5.3 - could stop glipizide upon discharge and even decrease and/or stop Metformin as well as goal for hga1c is under 7 (6) Essential hypertension: Code(s): I10 - Essential (primary) hypertension Status: Chronic Assessment and Plan: Chronic - Positive orthostatics today, will continue to check qshift. Likely related to patients acute blood loss vs dehydration, will give a 1L bolus @ 100 ml/hr x1. If this continues after this resolution of GIB will reassess hydration level as well as adjusting medications - Continue diltiazem 180 mg daily (7) Chronic kidney disease, stage 3: Code(s): N18.30 - Chronic kidney disease, stage 3 unspecified Status: Acute Assessment and Plan: BUN/Cr 30/1.40 with GFR 49 on admission - BUN/Cr 36/1.12 with GFR 47 on am labs - avoid nephrotoxic medications - renally dose medications - monitor I/O Time Spent With Patient Time with patient: Greater than 35 minutes Subjective Date/time seen: 07/12/24 1000 Interval history: no more bleeding and he is comfortable monitor hg Review of Systems Review of Systems: 12 systems were reviewed and are negative except for as per HPI. All systems reviewed & are unremarkable except as noted in HPI and below Exam Narrative: General: male in no acute respiratory distress who is nontoxic appearing, lying semi recumbent in bed. HEENT: Normocephalic. Atraumatic. Extraocular movement intact. Sclera clear and anicteric. No facial asymmetry. Chest: Lungs are clear to auscultation bilaterally. No wheezes or crackles. CV: Heart was regular rate and rhythm. S1/S2. No murmurs, gallops, or rubs. Abd: Abdomen was soft. Nontender. Nondistended. Positive bowel sounds. No organomegaly or masses. Ext: No clubbing, cyanosis, or edema. 2+ DP pulses bilaterally. Neuro: Patient is alert and oriented x4. Speech is clear. Objective Data Vital Signs Vital Signs: Vital Signs - 24 hr 07/12/24 21:05 07/13/24 05:25 07/13/24 07:49 Temperature 97.9 F 97.7 F 97.6 F Pulse Rate 82 74 87 Respiratory Rate 20 18 18 Blood Pressure 144/61 H 162/71 H 139/78 Pulse Oximetry 99 100 100 Oxygen Delivery 07/13/24 07:50 07/13/24 07:51 07/13/24 08:00 Temperature 97.6 F 97.6 F Pulse Rate 84 76 Respiratory Rate 18 18 Blood Pressure 137/53 L 117/53 L Pulse Oximetry 98 90 Oxygen Delivery Room Air 07/13/24 10:46 07/13/24 14:00 Temperature 98.4 F Pulse Rate 75 Respiratory Rate 18 Blood Pressure 139/53 L Pulse Oximetry 98 100 Oxygen Delivery Room Air Intake/Output Intake/Output: Intake & Output 07/10/24 07/11/24 07/12/24 07/13/24 23:59 23:59 23:59 23:59 Intake Total 713 599 0102 840 Output Total 1030 800 400 825 Balance -560 30 900 15 Meds/Results Medications: Active Medications Generic Name Dose Route Start Last Admin Trade Name Freq PRN Reason Stop Dose Admin Albuterol 2 puff 07/09/24 19:28 Albuterol Sulfate (*Sp) Aerosol 1 Puff INHALATION Q4H PRN shortness of breath or wheezing Atorvastatin Calcium 40 mg 07/09/24 19:35 07/12/24 19:21 Atorvastatin 40 Mg Tablet PO 40 mg QPM MELISSA Administration Dextrose 12.5 gm 07/09/24 19:27 Dextrose 50% 25 Gm/50 Ml Syringe IV PUSH PRN PRN Hypoglycemia Protocol Diltiazem HCl 180 mg 07/10/24 09:00 07/13/24 08:15 Diltiazem Hcl Cd 180 Mg Cap.24hr PO 180 mg DAILY MELISSA Administration Glucagon 1 mg 07/09/24 19:27 Glucagon For Inj 1 Mg Vial IM PRN PRN Hypoglycemia Protocol Glucose 15 gm 07/09/24 19:27 Glucose Oral Gel 15 Gm Of Glucse In 37.5 Gm Tube PO PRN PRN Hypoglycemia Protocol Dextrose 1,000 mls @ 100 mls/hr 07/09/24 19:27 Dextrose 5% 1,000 Ml IVPB PRN PRN Hypoglycemia Protocol Insulin Aspart 3 - 6 units 07/10/24 08:00 07/13/24 11:37 Insulin Aspart (*Bkc) 100 Units/Ml SUB-Q Not Given TIDWM [facility] Protocol Insulin Aspart 1 - 3 units 07/09/24 21:00 07/13/24 02:02 Insulin Aspart (*Bkc) 100 Units/Ml SUB-Q Not Given HS [facility] Protocol Oxybutynin Chloride 15 mg 07/09/24 21:00 07/12/24 21:43 Oxybutynin Chloride Xl 5 Mg Tab.Er.24 PO 15 mg HS MELISSA Administration Fluticasone/Salmeterol 2 puff 07/09/24 20:00 07/13/24 10:44 Fluticasone/Salmeterol 115-21 Mcg Inhaler 1 Puff INHALATION 2 puff Q12HRT MELISSA Administration Radiology Results: ITS Impressions Abdomen/Pelvis CT 07/09/24 12:57 IMPRESSION: 1. 2.3 cm mass in left kidney, most likely a hemorrhagic cyst, but neoplasm cannot be excluded. Consider abdomen CT without and with contrast. 2. Small left pleural effusion. 3. Chronic interstitial lung disease. Labs Labs: Laboratory Results - last 24 hr 07/12/24 07/12/24 07/13/24 16:34 21:04 06:18 WBC 8.5 RBC 2.28 L Hgb 7.1 L Hct 23.5 L MCV 103.1 H MCH 31.1 MCHC 30.2 L RDW 19.3 H Plt Count 227 MPV 9.0 Sodium 140 Potassium 3.9 Chloride 112 H Carbon Dioxide 22 Anion Gap 6 BUN 12 Creatinine 1.09 Estim Creat Clear Calc 49 Estimated GFR > 60 Glucose 115 H POC Capillary Glucose 149 H 134 H Calcium 7.8 L 07/13/24 07/13/24 07:40 11:22 WBC RBC Hgb Hct MCV MCH MCHC RDW Plt Count MPV Sodium Potassium Chloride Carbon Dioxide Anion Gap BUN Creatinine Estim Creat Clear Calc Estimated GFR Glucose POC Capillary Glucose 117 H 148 H Calcium Quality VTE Prophylaxis VTE prophylaxis: mechanical ordered
[2024-07-16 13:44] LABS: Erythropoietin (EPO) 130.8 mIU/mL (2.6-18.5)
== END 2024-07-13 15:55 | disposition home or self-care (01) | DRG 378 ==
LOC: ANHED 11:37 → ANH3MEDSUR 14:49
PROVIDERS: Internal Medicine Gastroenterology; Nurse Practitioner Family; Physician Assistant; Student in an Organized Health Care Education/Training Program; Admitting Provider Internal Medicine; Emergency Provider Emergency Medicine; PCP Nurse Practitioner Family; Visit Provider Nurse Practitioner
PROC: 0DJ08ZZ Inspection of Upper Intestinal Tract, Via Natural or Artificial Opening Endoscopic (ICD-10-PCS; CPT 45378; principal; 2024-07-11 14:00)
DX: K57.31 Diverticulosis of large intestine without perforation or abscess with bleeding (principal); D62 Acute posthemorrhagic anemia; K29.30 Chronic superficial gastritis without bleeding; I48.0 Paroxysmal atrial fibrillation; N18.30 Chronic kidney disease, stage 3 unspecified; I12.9 Hypertensive chronic kidney disease with stage 1 through stage 4 chronic kidney disease, or unspecified chronic kidney disease; E11.22 Type 2 diabetes mellitus with diabetic chronic kidney disease; I25.10 Atherosclerotic heart disease of native coronary artery without angina pectoris; E78.5 Hyperlipidemia, unspecified; J44.9 Chronic obstructive pulmonary disease, unspecified; G47.33 Obstructive sleep apnea (adult) (pediatric); N40.0 Benign prostatic hyperplasia without lower urinary tract symptoms; M19.90 Unspecified osteoarthritis, unspecified site; E11.42 Type 2 diabetes mellitus with diabetic polyneuropathy; M96.1 Postlaminectomy syndrome, not elsewhere classified; Z79.01 Long term (current) use of anticoagulants; Z86.16 Personal history of COVID-19; Z66 Do not resuscitate; Z79.02 Long term (current) use of antithrombotics/antiplatelets
CPT/HCPCS: 36415; 36430; 74177; 80048; 80053; 82668; 82728; 82948; 83036; 83540; 83550; 83735; 85014; 85018; 85025; 85027; 85046; 85610; 85730; 86850; 86900; 86901; 86923; 94640; 96361; 96374; 96376; 97161; 97165; 99285; A9270; G0378; J2470; J2704; J7030; J7050; J7120; P9016; Q9967

== ENCOUNTER 2024-07-16 08:59 | Outpatient (CLI) | payer OTHER, SELFPAY ==
[2024-07-16 10:21] LABS: Hematocrit 30.1 % (42.0-52.0); Mean Corpuscular HGB Conc 29.9 g/dl (32-36); Mean Corpuscular Hemoglobin 31.3 pg (26-34); Mean Corpuscular Volume 104.5 fl (80-100); Mean Platelet Volume 9.3 fl (7.4-10.4); Platelet Count Result 388 k/mm3 (150-375); Red Blood Count 2.88 M/mm3 (4.6-6.20); Red Cell Distribution Width 19.3 % (11.5-14.5); White Blood Count 12.5 K/mm3 (4.5-10.0)
== END 2024-07-16 09:00 | disposition home or self-care (01) ==
LOC: ANHLAB 09:03
PROVIDERS: PCP Nurse Practitioner Family; Visit Provider Nurse Practitioner
DX: R30.0 Dysuria (principal); K92.2 Gastrointestinal hemorrhage, unspecified
CPT/HCPCS: 36415; 85027

== ENCOUNTER 2024-08-08 11:53 | Outpatient (CLI) | payer OTHER, SELFPAY ==
--- NOTE | ~2024-08-08 | XR_ITS ---
XR chest 2V 08/08/2024 12:46 Indication: Spinal stenosis. Procedure: 2 view chest Comparison: Comparison to multiple prior studies sequentially, with oldest reviewed study dated 05/2022. Findings: Cardiomegaly. Left basilar airspace disease is present. Subtle right basilar airspace disea se. Possible small effusion. No pneumothorax. No edema. Impression: 1: Bibasilar airspace disease with elevated left diaphragm. Differential diagnosis includes atelectas is and pneumonia. 2: Cardiomegaly. Reviewed, dictated and finalized at location A. Impression: 1: Bibasilar airspace disease with elevated left diaphragm. Differential diagno sis includes atelectasis and pneumonia. 2: Cardiomegaly.
--- NOTE | 2024-08-08 12:13 | ECG_ITS ---
Test Date: 2024-08-08 12:27:26 Measurements Intervals [place] Rate: 66 P: 0 CT: 0 QRS: -38 QRSD: 90 T: 31 QT: 379 QTc: 398 Interpretive Statements ATRIAL FIBRILLATION MARKED LEFT AXIS DEVIATION [QRS AXIS < -30] LOW QRS VOLTAGE IN EXTREMITY LEADS [QRS DEFLECTION < 0.5 mV IN LIMB LEADS] Compared to ECG 05/02/2024 10:31:52 NO SIGNIFICANT CHANGES Electronically Signed On 08-08-2024 13:04:33 CDT by Dilip Elaine M.D.
[2024-08-08 12:38] LABS: Hematocrit 40.7 % (42.0-52.0); Hemoglobin 12.1 g/dL (14.0-18.0); Mean Corpuscular HGB Conc 29.7 g/dl (32-36); Mean Corpuscular Hemoglobin 30.9 pg (26-34); Mean Corpuscular Volume 104.1 fl (80-100); Mean Platelet Volume 9.1 fl (7.4-10.4); Platelet Count Result 312 k/mm3 (150-375); Red Blood Count 3.91 M/mm3 (4.6-6.20); Red Cell Distribution Width 14.6 % (11.5-14.5)
[2024-08-08 12:54] LABS: INR 1.1; Prothrombin Time 14.5 Seconds (11.1-14.7)
[2024-08-08 12:55] LABS: Partial Thromboplastin Time 35.9 Seconds (22.3-36.8)
--- OUTSIDE RECORDS SUMMARY | 2024-08-08 13:16 | XMS_ITS | Clinical Summary ---
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 Gender Identity Not on file Sexual Orientation [...] 10/05/2022, 01/22/2022 Medical Devices Implanted Type Area Traffic Court Magistrate Device Identifier Shelf Expiration Date Model / Serial / Lot Medtronic Card Vasc Surgery 2.50 X 34mm Cole [place] Rx Coronary Stent [id number] - [id number] Implanted:Qty: 1 on 09/01/2023 by Hitesh Moreau MD at [facility] Medtronic Card Vasc Surgery 06/17/2026 [id number] / / [id number] [employer] Device Vascular Closure Femoral Artery Bioabsorbable Dual Method Vascade 6-7fr Collagen [id number] - [id number] Implanted:Qty: 1 on 09/01/2023 by Hitesh Moreau MD at [facility] [employer] 03/10/2025 [id number] / / [id number] Medtronic Card Vasc Surgery 3.0 X 30mm [place] Cbc Base Jerome Rx Coronary Stent [id number] - [id number] Implanted:Qty: 1 on 10/14/2023 by Hitesh Moreau MD at [facility] Medtronic Card Vasc Surgery 10/13/2025 [id number] / / [id number] Insurance [facility] Care Teams Cotton Ginner Relationship Specialty Start Date End Date Jose Nolan MD PCP - General Family Practice 05/31/23
--- OUTSIDE RECORDS SUMMARY | 2024-08-08 13:16 | XMS_ITS | Referral Summary ---
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 Vasc Surgery 2.50 X 34mm Cole [place] Rx Coronary Stent [id number] - [id number] Implanted:Qty: 1 on 09/01/2023 by [facility] Vasc Surgery 06/17/2026 [id number] / / [id number] [employer] [facility] Device Vascular Closure Femoral Artery Bioabsorbable Dual Method Vascade 6-7fr Collagen [id number] - [id number] Implanted:Qty: 1 on 09/01/2023 by Hitesh Moreau MD at [facility] [employer] 03/10/2025 [id number] / / [id number] Medtronic [facility] Vasc Surgery 3.0 X 30mm [place] Rx Coronary Stent [id number] - [id number] Implanted:Qty: 1 on 10/14/2023 by [facility] Vasc Surgery 10/13/2025 [id number] / / [id number] Insurance [facility] Care Teams Wireless Communications Engineer Relationship Specialty Start Date End Date Jose Nolan MD PCP - General Family Practice 05/31/23
--- OUTSIDE RECORDS SUMMARY | 2024-08-08 13:16 | XMS_ITS | Clinical Summary ---
Author Organization [facility] Address [address] [place] [address] Care Team Providers Care Evp Managing Director Name Role Phone Dale Saldaña MD Primary Care Provider [phone] Source Comments [facility],non-owned Affiliates and Associated Physician Practices is amultiple site organization consisting of ambulatory clinics and hospital sitesin [place], [place], [place] and [place]. This disclosure is being madepursuant to the Care Everywhere program and may not contain all information available regarding this patient. Last updated 18.[facility] [employer] Allergies Active Allergy Reactions Criticality Noted Date [...] Comments Blood Pressure 143/85 06/30/2023 3:13 PM SIGN MAINTENANCE Pulse 82 06/30/2023 3:13 PM SIGN MAINTENANCE Temperature 36.7 C (98.1 F) 06/30/2023 3:13 PM SIGN MAINTENANCE Respiratory Rate - - Oxygen Saturation 96% 06/30/2023 3:13 PM SIGN MAINTENANCE Inhaled Oxygen Concentration - - Weight 100.7 kg (222 lb) 06/30/2023 3:13 PM SIGN MAINTENANCE Height 180.3 cm (5' 11 ) 06/30/2023 3:13 PM SIGN MAINTENANCE Body Mass Index 30.96 06/30/2023 3:13 PM SIGN MAINTENANCE Plan of Treatment Health Maintenance Due Date Last Done Comments MEDICARE AWV 12 MONTHS 1941 DTAP/TDAP/TD VACCINES (1 - Tdap) 1960 PNEUMOCOCCAL [...] to complete this topic MENINGOCOCCAL (Group B) VACC INE SHARED DECISION-MAKING Aged Out No longer eligibl e based on patient's age to complete this topic MENINGOCOCCAL GROUPS A/C/Y/W VACCINE Aged Out No longer eligible b ased on patient's age to complete this topic Care Teams Evp Managing Director Relationship Specialty Start Date End Date Dale Saldaña MD PCP - General 03/09/18
[2024-08-08 14:21] LABS: Alanine Aminotransferase 18 U/L (6-50); Albumin Level 3.7 g/dL (3.5-5.1); Alkaline Phosphatase 32 U/L (38-126); Anion Gap 10 mmol/L (4-12); Aspartate Amino Transferase 23 U/L (17-59); Bilirubin,Total 0.5 mg/dL (0.2-1.3); Blood Urea Nitrogen 26 mg/dL (9-20); Calcium 9.3 mg/dL (8.4-10.2); Carbon Dioxide 22 mmol/L (22-30); Chloride 110 mmol/L (98-107); Estimated Glomerular Filt Rate > 60; Glucose 93 mg/dL (65-110); Potassium 5.1 mmol/L (3.4-5.0); Sodium 142 mmol/L (137-145)
== END 2024-08-08 11:54 | disposition home or self-care (01) ==
LOC: ANHSURGERY 11:56
PROVIDERS: PCP Nurse Practitioner Family; Visit Provider Anesthesiology Pain Medicine
DX: M48.00 Spinal stenosis, site unspecified (principal); Z01.818 Encounter for other preprocedural examination; I51.7 Cardiomegaly
CPT/HCPCS: 36415; 71046; 80053; 85027; 85610; 85730; 93005

== ENCOUNTER 2024-08-21 00:40 | Day surgery (SDC) | payer OTHER, SELFPAY ==
--- NOTE | 2024-08-06 15:12 | PC.NURSE ---
Addendum entered by Mila Rey RN 08/06/24 15:49: NOTHING TO EAT OR DRINK AFTER MIDNIGHT PER DR HERNANDEZ TAKE SHOWER OR BATH NIGHT BEFORE SURGERY AND MORNING OF SURGERY Original Note: Report to the Outpatient Waiting Room, entrance under the green pavilion located off [facility], at time ___6 AM____ on date _08/21/24 . Planned Procedure Time: __7:30 AM .? Time changes happen often and if your time is changed the preop area will call you the afternoon before. - You and your visitor will be asked to self-screen and do not enter if you have any COVID symptoms. Please call surgeon if you need to reschedule. - A mask is optional within the hospital at this time. Patients may have clear liquids (water, carbonated beverages, clear teas, apple juice) until 3 hours prior to surgery ( 4:30 AM) with a maximum of 20 ounces. - No food from midnight until time of surgery and no smoking, or chewing tobacco (or any form of nicotine). No chewing gum, candy or mints. - Take only the following medications with a SIP of water on the morning of surgery: ___DILTIAZEM,WIXELA INHALER DO NOT STOP ANY OF YOUR OTHER PRESCRIPTION MEDICATIONS PRIOR TO SURGERY EXCEPT THE FOLLOWING Hold all vitamins and supplements for 3 days per anesthesiologist.LAST DOSE 08/17/24 Medications to discontinue per physician _SANDRINE HOLD 5 DAYS PER P OP PER DR MCCRACKEN . PT TO CALL ABOUT PLAVIX Date to take last dose__08/15/24 Please no make-up, nail faroese, hairspray, perfume, deodorant, or body powder the day of surgery.? No jewelry (including any body piercings) or valuables the day of surgery, leave them at home.? Please take a shower or bath the night before, or the morning of, surgery with an antibacterial soap.? Wear comfortable, loose fitting clothing.? Children are encouraged to wear pajamas. - Jewelry must be removed prior to entering the operating room.? Rings and piercings that are not removed may be cut off. - The hospital will not accept responsibility for valuables.? - Please leave all valuables, including medications, at home the day of surgery. If you are going home after surgery, a licensed driver supervisor must drive you home.? - NO public transportation without another adult if you receive anesthesia. - We recommend that an adult stay with you for 24 hours following discharge. - We also recommend that you do not drive, make important decision, drink alcoholic beverages, or take any drugs that were not prescribed by your health care provider for at least 24 hours after your discharge time. For Pediatric surgeries, we recommend two adults accompany the child home. Follow any additional instructions given to you from your surgeon. Telephone instructions given to ___PATIENT and asked if any additional questions and then verbalized understanding. Patient advised to call surgeon office or pre surgery nurse liaison [phone] if any additional questions.
[2024-08-06 15:34] VITALS: BMI 29.8
[2024-08-21] VITALS (8 sets, daily range): BP systolic 121–154; BP diastolic 53–88; PULSE 62–78; RESP 14–18; TEMP 36.1–36.3; O2SAT 94–100; BMI 28.3
--- NOTE | ~2024-08-21 | XR_ITS ---
XR fluoroscopy no charge Indication: Lumbar decompression TECHNIQUE: Fluoroscopy used during Lumbar decompression performed by [Jose Quinones MD] on . 3 minutes 42 seconds fluoroscopy with one fluoroscopic images captured. FINDINGS: Correlate with procedure note. IMPRESSION: Fluoroscopy used during Lumbar decompression. Reviewed, dictated and finalized at location A.
--- OUTSIDE RECORDS SUMMARY | 2024-08-21 00:42 | XMS_ITS | Clinical Summary ---
Author Organization [facility] Address [address] [place] [address] Care Team Providers Care Plaster Applicator Name Role Phone Dale Saldaña MD Primary Care Provider Source Comments [facility],non-owned Affiliates and Associated Physician Practices is amultiple site organization consisting of ambulatory clinics and hospital sitesin [place], [place], [place] and [place]. This disclosure is being madepursuant to the Care Everywhere program and may not contain all information available regarding this patient. Last updated 18.[facility] [employer] Allergies Active Allergy Reactions Criticality Noted Date [...] Comments Blood Pressure 143/85 06/30/2023 3:13 PM TOOL CHECKER Pulse 82 06/30/2023 3:13 PM TOOL CHECKER Temperature 36.7 C (98.1 F) 06/30/2023 3:13 PM TOOL CHECKER Respiratory Rate - - Oxygen Saturation 96% 06/30/2023 3:13 PM TOOL CHECKER Inhaled Oxygen Concentration - - Weight 100.7 kg (222 lb) 06/30/2023 3:13 PM TOOL CHECKER Height 180.3 cm (5' 11 ) 06/30/2023 3:13 PM TOOL CHECKER Body Mass Index 30.96 06/30/2023 3:13 PM TOOL CHECKER Plan of Treatment Health Maintenance Due Date [...] age to complete this topic Care Teams Plaster Applicator Relationship Specialty Start Date End Date Dale Saldaña MD PCP - General 03/09/18
--- OUTSIDE RECORDS SUMMARY | 2024-08-21 00:42 | XMS_ITS | Clinical Summary ---
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 Gender Identity Not on file Sexual Orientation [...] 2 - PCV) 01/22/2023 01/22/2022 Covid-19 Vaccine ( - 2023-2 5 season) 2024 02/21/2022, 05/26/2021, 09/23/2020 Fall Risk Assessment 10/13/2024 10/14/2023 Influenza Vaccine (Season Ended) 2025 02/23/2023, 01/22/2022, 02/12/2021, Additional history exists Zoster Vaccine Completed 10/05/2022, 01/22/2022 Medical Devices Implanted Type Area Wallpaper Inspector Device Identifier Shelf Expiration Date Model / Serial / Lot Medtronic Card Vasc Surgery 2.50 X 34mm [place] Rx Coronary Stent [id number] - [id number] Implanted:Qty: 1 on 09/01/2023 by Hitesh Moreau MD at [facility] Medtronic Card Vasc Surgery 06/17/2026 [id number] / / [id number] [employer] Device Vascular Closure Femoral Artery Bioabsorbable Dual Method Vascade 6-7fr Collagen [id number] - [id number] Implanted:Qty: 1 on 09/01/2023 by Hitesh Moreau MD at [facility] M3X Mediadc [employer] 03/10/2025 [id number] / / [id number] Medtronic Card Vasc Surgery 3.0 X 30mm [place] Rx Coronary Stent [id number] - [id number] Implanted:Qty: 1 on 10/14/2023 by Hitesh Moreau MD at [facility] Medtronic Card Vasc Surgery 10/13/2025 [id number] / / [id number] Insurance [facility] Care Teams Criminal Defense Lawyer Relationship Specialty Start Date End Date Jose Nolan MD PCP - General Family Practice 05/31/23
--- OUTSIDE RECORDS SUMMARY | 2024-08-21 00:42 | XMS_ITS | Referral Summary ---
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 Gender Identity Not on file Sexual Orientation [...] on file Medical Devices Implanted Type Area Rehab Technician Device Identifier Shelf Expiration Date Model / Serial / Lot [facility] Vasc Surgery 2.50 X 34mm Cole Cole Rx Coronary Stent [id number] - [id number] Implanted:Qty: 1 on 09/01/20[facility] Vasc Surgery 06/17/2026 [id number] / / [id number] [employer] [facility] Device Vascular Closure Femoral Artery Bioabsorbable Dual Method Vascade 6-7fr Collagen [id number] - [id number] Implanted:Qty: 1 on 09/01/2023 by Hitesh Moreau MD at [facility] [employer] 03/10/2025 [id number] / / [id number] Medtronic [facility] Vasc Surgery 3.0 X 30mm [place] Cole Rx Coronary Stent [id number] - [id number] Implanted:Qty: 1 on 10/14/2023 [facility] Vasc Surgery 10/13/2025 [id number] / / [id number] Insurance [facility] Care Teams Director Industrial Museum Relationship Specialty Start Date End Date Jose Nolan MD PCP - General Family Practice 05/31/23
[2024-08-21 06:51] LABS: Glucose Point of Care 129 mg/dl (65-105)
--- NOTE | 2024-08-21 07:03 | WPDANESEPPF ---
Anes - Initial Pre Proc Eval Procedure: Operation Date: 08/21/24 07:30 Proposed Procedures p Minimally Invasive Lumbar Decompression Bilateral L3-4, L4-5 Under Fluoroscopic Guidance with Possible Epidurogram - Jose Quinones MD Date/Time: 08/21/24 07:03 Surgeon: Jose Quinones MD Pre Op Diagnosis: spinal stenosis Patient Data Age: 84 Gender: M Height: 1.8 m Weight: 92.2 kg Last Vital Signs Temp 36.3 C L 08/21/24 06:51 Pulse 62 08/21/24 06:51 BP 143/77 H 08/21/24 06:51 Pulse Ox 99 08/21/24 06:51 O2 Del Method Room Air 08/21/24 06:51 Allergies Allergy/AdvReac Type Severity Reaction Status Date / Time Opioids - Morphine Analogues AdvReac Intermediate Nausea and Verified 08/21/24 06:51 Vomiting Home Medications ?Medication ?Instructions ?Recorded ?Confirmed ?Type lancets (Lancets, Super Thin) #100 ea 01/30/20 08/17/24 Rx blood sugar diagnostic (Contour #100 ea 03/19/20 08/17/24 Rx Next Test Strips) multivit with minerals-iron 18 1 tablet PO DAILY 12/10/21 08/17/24 History mg-folic ac 400 mcg-vit K 25 mcg tablet (Adults Multivitamin) vitamin B complex (B 1 tablet PO DAILY 12/10/21 08/17/24 History Complex-Vitamin B12 tablet) atorvastatin 40 mg tablet 40 mg PO QPM 10/21/23 08/17/24 History finasteride 5 mg tablet See Rx Instructions .Route 01/02/24 08/17/24 Rx .COMPLEX #90 tabs omega-3 fatty acids 1,000 mg PO DAILY 04/09/24 08/17/24 History diltiazem HCl 180 mg 180 mg PO Q24H 05/02/24 08/17/24 History capsule,extended release 24 hr fluticasone 250 mcg-salmeterol 50 See Rx Instructions .Route 05/25/24 08/17/24 Rx mcg/dose blistr powdr for .COMPLEX #180 ea inhalation (Wixela Inhub) clopidogrel 75 mg tablet See Rx Instructions .Route 05/28/24 08/17/24 Rx .COMPLEX #90 tabs oxybutynin chloride 15 mg 15 mg PO HS #90 tabs 05/28/24 08/17/24 Rx tablet,extended release 24 hr metformin 1,000 mg tablet 1,000 mg PO DAILY #180 tabs 07/13/24 08/17/24 Rx albuterol sulfate 90 mcg/actuation 2 puff inhalation Q4H PRN 07/19/24 08/17/24 Rx aerosol inhaler (ProAir HFA) shortness of breath or wheezing #8.5 grams ferrous sulfate 325 mg (65 mg 325 mg PO DAILY #90 tabs 07/19/24 08/17/24 Rx iron) tablet rivaroxaban 20 mg tablet (Xarelto) 20 mg PO QPM #30 tabs 08/15/24 08/17/24 Rx Laboratory Tests 08/21/24 06:49 POC Capillary Glucose 129 H mg/dl (65-105) Patient hx anesthesia problems: none Family hx anesthesia problems: none Results Review: All pre-operative results and documents have been reviewed as part of the pre-operative evaluation. [facility] Past Medical History Medical History Knee pain Back pain Acute blood loss anemia Chronic kidney disease, stage 3 Chronic anticoagulation Cerebral cavernoma Dorsalgia Obstructive sleep apnea intolerant to CPAP Lumbosacral stenosis with neurogenic claudication with epidural steroid injection L4-L5 December 2022 Mild cognitive impairment COPD with asthma Lumbosacral radiculopathy Claudication of both lower extremities Postlaminectomy syndrome Lumbosacral spondylosis Long COVID Atrial fibrillation Benign non-nodular prostatic hyperplasia without lower urinary tract symptoms Essential hypertension 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 Surgical History Surgical History History of cardiac catheterization (03/2023) multivessel coronary disease to 80% stenosis of the proximal LAD 70% stenosis midportion of LAD very small diagonal branch, proximal and mid left circ have luminal irregularities 90% long stenosis left circumflex, small caliber obtuse marginal branch with mild diffuse disease obtuse marginal 2 has a moderate stenosis of the midportion right coronary artery is dominant vessel with 90% stenosis of the midportion and mid RPDA has 2 tandem stenosis is of 60-70% the patient was referred for CV surgery however the patient then underwent staged procedure at [facility] with PCI and stent to mid distal left circ and in September 2023 he had a PCI to the mid RCA History of back surgery Lumbar fusion History of cataract surgery Family History Family History Sibling Patient's sister is in good health Patient's brother is in good health Father Heart disease Acute myocardial infarction Telangiectasia Htbed-Zvihs-Snhec disease Angiodysplasia AVM (arteriovenous malformation) Mother Acute myocardial infarction Social History Social History Social History: Surrogate medical decision maker: Genoveva Villa, spouse. Code status: DO NOT RESUSCITATE. Smoking packs per day: 0.5 Smoking cigarettes per day: 10.0 Years smoked: 2 Smoking pack-years: 1.00 Smoking status: Former smoker Tobacco type: cigarettes and cigars Second hand tobacco smoke exposure: No Smoking end date: 05/16/1950 Alcohol intake: never Substance use: never Substance use type: does not use Do You Feel Safe in your Home?: Yes Lack of Transportation: No Lack of Food: Never True Current Housing: I Have Housing Concerned About Future Housing: No Difficulty Paying Gas/Electric Bills: No Difficulty Paying for Meds: No Currently Unemployed: No Education: Grade School Difficulty w/ Childcare or Family Care: No Living arrangements: with family Additional living arrangements comments: Lives with in [place]. 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 Spiritual care concerns: No Anes - Eval Final PreProcedure Day of Procedure 08/21/24 07:03 Patient weight: obese Heart: regular rate and rhythm Lungs: clear to auscultation Airway: Mallampati scale class II Neurological: alert and oriented Last oral intake: >/= 8 hours ASA classification: IV Emergent: no Anesthetic plan: proceed Anesthesia type and monitoring: general and standard monitoring Results Review: All pre-operative results and documents have been reviewed as part of the pre-operative evaluation. Informed Consent: The patient's anesthetic plan and its attendant risks and benefits were discussed with the patient/family/POA. Questions were solicited and answers provided to the satisfaction of the patient/family/POA.
[2024-08-21] MEDS: LACTATED RINGERS 1,000 ML 30 ML IV CONT (07:15)
--- NOTE | 2024-08-21 07:16 | PM.HPGS ---
History of Present Illness History of Present Illness Consent: Risks, benefits, and alternatives have been discussed and questions answered. Patient agrees to proceed with procedure. Chief complaint: lumbar spinal stenosis w/ neurogenic claudication Narrative: Christian Villa I is a 84 year old male with chronic, recalcitrant and disabling bilateral lumbosacral low back and lower extremity pain secondary to lumbar spinal stenosis with neurogenic claudication with failure to respond to aggressive conservative measures including PT, oral and topical analgesics, opioid and nonopioid analgesics, rest, time and activity/behavioral modification over the past 1-2 years who presents for MILD procedure at bilateral L3-4, L4-5 under fluoroscopic guidance and with possible epidurogram. Review of Systems Review of Systems: Patient denies any new infectious, allergic, cardiopulmonary, neurologic or constitutional symptoms or changes in activity tolerance or exercise capacity including new or progressive SOB/CASTILLO, peripheral edema, productive cough, dysuria, nausea/vomiting, diarrhea, weight change, fevers/chills/night sweats, new or progressive neurologic deficit, cognitive or mood changes since last seen, except as documented in the HPI. All systems reviewed & are unremarkable except as noted in HPI and below PMFSH Past Medical History Medical History Knee pain Back pain Acute blood loss anemia Chronic kidney disease, stage 3 Chronic anticoagulation Cerebral cavernoma Dorsalgia Obstructive sleep apnea intolerant to CPAP Lumbosacral stenosis with neurogenic claudication with epidural steroid injection L4-L5 December 2022 Mild cognitive impairment COPD with asthma Lumbosacral radiculopathy Claudication of both lower extremities Postlaminectomy syndrome Lumbosacral spondylosis Long COVID Atrial fibrillation Benign non-nodular prostatic hyperplasia without lower urinary tract symptoms Essential hypertension 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 Surgical History Surgical History History of cardiac catheterization (03/2023) multivessel coronary disease to 80% stenosis of the proximal LAD 70% stenosis midportion of LAD very small diagonal branch, proximal and mid left circ have luminal irregularities 90% long stenosis left circumflex, small caliber obtuse marginal branch with mild diffuse disease obtuse marginal 2 has a moderate stenosis of the midportion right coronary artery is dominant vessel with 90% stenosis of the midportion and mid RPDA has 2 tandem stenosis is of 60-70% the patient was referred for CV surgery however the patient then underwent staged procedure at [facility] with PCI and stent to mid distal left circ and in September 2023 he had a PCI to the mid RCA History of back surgery Lumbar fusion History of cataract surgery Family History Family History Sibling Patient's sister is in good health Patient's brother is in good health Father Heart disease Acute myocardial infarction Telangiectasia Ywqga-Pypql-Apncr disease Angiodysplasia AVM (arteriovenous malformation) Mother Acute myocardial infarction Social History Social History Social History: Surrogate medical decision maker: Genoveva Villa, spouse. Code status: DO NOT RESUSCITATE. Smoking packs per day: 0.5 Smoking cigarettes per day: 10.0 Years smoked: 2 Smoking pack-years: 1.00 Smoking status: Former smoker Tobacco type: cigarettes and cigars Second hand tobacco smoke exposure: No Smoking end date: [birth year]/16/1950 Alcohol intake: never Substance use: never Substance use type: does not use Do You Feel Safe in your Home?: Yes Lack of Transportation: No Lack of Food: Never True Current Housing: I Have Housing Concerned About Future Housing: No Difficulty Paying Gas/Electric Bills: No Difficulty Paying for Meds: No Currently Unemployed: No Education: Grade School Difficulty w/ Childcare or Family Care: No Living arrangements: with family Additional living arrangements comments: Lives with in [place]. 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 Spiritual care concerns: No Meds Home Medications and Allergies Home Medications ?Medication ?Instructions ?Recorded ?Confirmed ?Type lancets (Lancets, Super Thin) #100 ea 01/30/20 08/17/24 Rx blood sugar diagnostic (Contour #100 ea 03/19/20 08/17/24 Rx Next Test Strips) multivit with minerals-iron 18 1 tablet PO DAILY 12/10/21 08/17/24 History mg-folic ac 400 mcg-vit K 25 mcg tablet (Adults Multivitamin) vitamin B complex (B 1 tablet PO DAILY 12/10/21 08/17/24 History Complex-Vitamin B12 tablet) atorvastatin 40 mg tablet 40 mg PO QPM 10/21/23 08/17/24 History finasteride 5 mg tablet See Rx Instructions .Route 01/02/24 08/17/24 Rx .COMPLEX #90 tabs omega-3 fatty acids 1,000 mg PO DAILY 04/09/24 08/17/24 History diltiazem HCl 180 mg 180 mg PO Q24H 05/02/24 08/17/24 History capsule,extended release 24 hr fluticasone 250 mcg-salmeterol 50 See Rx Instructions .Route 05/25/24 08/17/24 Rx mcg/dose blistr powdr for .COMPLEX #180 ea inhalation (Wixela Inhub) clopidogrel 75 mg tablet See Rx Instructions .Route 05/28/24 08/17/24 Rx .COMPLEX #90 tabs oxybutynin chloride 15 mg 15 mg PO HS #90 tabs 05/28/24 08/17/24 Rx tablet,extended release 24 hr metformin 1,000 mg tablet 1,000 mg PO DAILY #180 tabs 07/13/24 08/17/24 Rx albuterol sulfate 90 mcg/actuation 2 puff inhalation Q4H PRN 07/19/24 08/17/24 Rx aerosol inhaler (ProAir HFA) shortness of breath or wheezing #8.5 grams ferrous sulfate 325 mg (65 mg 325 mg PO DAILY #90 tabs 07/19/24 08/17/24 Rx iron) tablet rivaroxaban 20 mg tablet (Xarelto) 20 mg PO QPM #30 tabs 08/15/24 08/17/24 Rx Allergies Allergy/AdvReac Type Severity Reaction Status Date / Time Opioids - Morphine Analogues AdvReac Intermediate Nausea and Verified 08/21/24 06:51 Vomiting Vital Signs Vital Signs - 24 hr 08/21/24 06:51 Temperature 97.3 F L Pulse Rate 62 Blood Pressure 143/77 H Pulse Oximetry 99 Oxygen Delivery Room Air Exam Narrative: The patient's physical exam is essentially unchanged from prior examination on 04/09/24. Specifically, patient demonstrates normal lung capacity, tidal volume and respiratory rate without wheezes, crackles, rales or rubs. Heart rate and rhythm are regular without murmurs, gallops or rubs. No JVD. Pulses 2+ globally without increasing peripheral edema. AAOx3 with no evidence of confusion, intoxication or altered mental state, NC/AT without acute distress or altered consciousness. Speech, cognition, mood, insight and judgment at baseline and within normal limits. Assessment and Plan Assessment and plan (1) Lumbosacral stenosis with neurogenic claudication: Code(s): M48.07 - Spinal stenosis, lumbosacral region Status: Acute Assessment and Plan: proceed a planned with MILD procedure at bilateral L3-4, L4-5 under fluoroscopic guidance and with possible epidurogram.
--- NOTE | 2024-08-21 07:19 | WPDHPUPDATE1 ---
History and Physical Update Update Date/Time: 08/21/24 07:19 History and Physical has been reviewed, including an updated exam of the patient. There are NO changes in the patient's condition. Risks, benefits, and alternatives have been discussed and questions answered. Patient agrees to proceed with procedure.
--- NOTE | 2024-08-21 07:20 | W.PM.PROC2 ---
Procedure Note - Detailed Date of Procedure 08/21/24 Pre-op Diagnosis lumbar spinal stenosis w/ neurogenic claudication Post-op Diagnosis Same Procedure Performed Bilateral Minimally Invasive Lumbar Decompression (MILD) at L3-4, L4-5 with Intra-operative Interlaminar Epidural Access for Epidurogram under Fluoroscopic Guidance. Surgeon Jose Quinones MD Crabbing Machine Operator None Anesthesia Other ([Moderate IV sedation/MAC] with local anesthetic infiltration in the prone position) Description of Procedure INFORMED CONSENT: Risks, benefits, and alternatives to the procedure were discussed in detail with the patient who expressed explicit understanding and consent to proceed. Risks discussed with the patient included but were not limited to risk of serious local or systemic infection, bleeding/bruising, epidural hematoma, dural puncture or tear resulting in CSF leak and acute or chronic post-dural puncture headache, scarring/deformity, immediate or delayed allergic reaction, decreased mobility, failure to treat pain, inadvertent neurologic injury resulting in increased pain, weakness/paralysis or numbness, inadvertent organ injury, need for additional surgery, allergic reaction, heart attack, stroke, seizure, coma, . Anesthetic risks were also briefly discussed by myself and the engineering technician parking. The patient expressed understanding and consent to proceed, agreeing that potential benefits outweigh risk of harm. All materials required for the procedure were immediately available prior to procedure start. Site and side were confirmed with the patient, compared carefully to the patient chart and consent, and marked prior to transport to the operating room. Appropriate time out procedure was performed per protocol prior to procedure start. PROCEDURE IN DETAIL: The patient was brought to the operative suite and placed in the prone position. Appropriate ASA standard monitors were attached. Anesthesia was initiated without difficulty or event. Eyes were protected. Patient was transitioned to the prone position. Pressure points were padded with joints in neutral position. When appropriate, breasts and genitals were evaluated and protected. Eyes were checked and were free from undue pressure. Skin overlying the procedure site was marked with sterile marker. Surgical area was prepared in a typical sterile fashion with ChloraPrep and allowed to dry for at least 3 minutes prior to sterilely draping the surgical site. The lumbar spine was identified in the AP fluoroscopic view with slight cephalad tilt perfectly aligning the endplates at the targeted levels with spinous processes bisecting the transpedicular plane. After identifying the intended incision site approximately 1.5 levels inferior to the level of interest, the area was anesthetized by infiltration with no more than 10ml of a 1:1 admixture of 0.5% PF bupivacaine with epinephrine and 2% PF lidocaine with epinepherine via a 27-gauge needle after negative aspiration. A 22-gauge spinal needle was used to provide additional and adequate local anesthesia to the level of the interspinous ligament, ligamentum flavum and the periosteum of the lamina at the intended treatment levels. In the AP view, a #11 scalpel blade was used to create a single stab incision at the intended incision site on the targeted side. The Vertos MILD kit was opened and the included cannula and trocar assembly was advanced through the incision to contact the midportion of the right lamina just adjacent to the spinous process at L5. Once seated, the lateral view was used to gauge depth demonstrating the most anterior tip of the trocar posterior to the epidural space at all times. The linux system engineer-provided cannula stabilizer was placed over the trocar flush to the patient's lumbar flank. Cannula obturator with handle was removed. Included depth guide was then attached to the insertion port on the cannula and set to an intitial depth of 15 mm. The bone rongeur was advanced to the depth of the lumbar lamina at the targeted level. Depth gauge was then adjusted allowing rongeur tip to advance in the contralateral oblique view to the anterior border of the superior and inferior lamina at the respective intervertebral foramen. Multiple passes of the rongeur were used in the contralateral oblique view to remove single small portions of ligament and bone in a 360-degree distribution, approximately 3-5 passes on each lamina, until appropriate access to the superior and inferior attachments of the ligamentum flavum was created at the surgical level right L4-5. Each individual portion of bone removed was extracted, collected and discarded. Rongeur was removed and replaced with a tissue sculpter which was deployed from inferior to superior in the contralateral oblique view to delaminate the ligamentum flavum at the intended level with serial groupings of three passes each, 6-9 total per side treated. Tissue extracted was discarded. At no point did the rongeur or tissue sculpter violate the anterior border of the ligament as evidenced by intact interface at the ligament/epidural border. The same procedure was repeated in the exact same fashion, utilizing the initial stab incision, to effectively debulk the ligamentum flavum and decompress the central spinal canal on the right at L3-4, with similar results and no evidence of complication. The same exact procedure was then repeated in the exact same fashion, utilizing a new stab incision on the contralateral side, to effectively debulk the ligamentum flavum and decompress the central spinal canal on the left at L3-4, L4-5. Bone and tissue sculpters were withdrawn, obturator replaced and trocar removed in the lateral view, entirely and without difficulty. Hemostasis was obtained and confirmed. Benzoin was placed around the incision site(s) and Steri-Strips were placed in a olivia-crossing fashion across the wound(s), which were then covered with Telfa dressing and Tegaderm. The patient was converted to the supine position and transported to the recovery area having tolerated the procedure well with no evidence of complication. The patient was instructed to minimize weightbearing activity, including ambulation, for 48 hours, and to avoid bending, twisting at the waist, overhead work, reaching and lifting, pushing or pulling greater than 5-10 lbs for 48 hours with subsequent return to normal activity as tolerated. The patient is to maintain current dressing for 48 hours, then can remove the original dressing, leaving steri-strips in place until they come off on their own or are removed by their provider. Once removing the outer bandage, the patient will cover the incision with clean gauze and paper tape as needed, changing daily or when soiled. The patient understands they should avoid soaking or submerging the incision for 1 week and can resume showers after 48 hours. Instructions were provided to the patient in both verbal and written form, which the patient obtained, reviewed and signed prior to discharge. The patient was instructed to watch for signs of infection including fevers, chills, night sweats, severe headache, neck stiffness, new neurologic deficit, bowel or bladder changes, increased pain, discharge, bleeding, swelling, opening of or unusual warmth at the incision site. They are to call our office or report directly to the Emergency Department immediately should there be any signs/symptoms of complications such as the above or any other urgent/emergent changes in their condition. COMMENTS: None. COMPLICATIONS: None. DRAINS/PACKING: None. SPECIMEN: None. ESTIMATED BLOOD LOSS: 10 mL. IV FLUIDS: On chart. CONTRAST WASTED: 0 ml of Isovue 300M. Pathology None sent Complications No immediate complications Condition Stable Disposition PACU [facility] Billing Surgery - Charge Forward: Surgery Billing
[2024-08-21] MEDS: ceFAZolin 2 GM/D5W 50 ML 2 GM/50 ML BAG IVPB (07:28)
[2024-08-21] MEDS: BUPIVACAINE/EPINEPHRINE 0.5% 30 ML VIAL 20 ML INFILTRATE (07:44)
[2024-08-21] MEDS: LIDOCAINE 1% LOCAL INJ 20 ML VIAL INFILTRATE (07:45)
[2024-08-21 08:21] LABS: Glucose Point of Care 111 mg/dl (65-105)
[2024-08-21] MEDS: HYDROcodone/acetaminophen (*CRX) 5-325 MG TABLET 1 TAB PO (09:27)
== END 2024-08-21 10:36 | disposition home or self-care (01) ==
PROVIDERS: PCP Nurse Practitioner Family; Visit Provider Anesthesiology Pain Medicine
PROC: (CPT 0275T; principal; 2024-08-21 07:30)
DX: M48.062 Spinal stenosis, lumbar region with neurogenic claudication (principal); Z00.6 Encounter for examination for normal comparison and control in clinical research program; I12.9 Hypertensive chronic kidney disease with stage 1 through stage 4 chronic kidney disease, or unspecified chronic kidney disease; E11.22 Type 2 diabetes mellitus with diabetic chronic kidney disease; E11.42 Type 2 diabetes mellitus with diabetic polyneuropathy; N18.30 Chronic kidney disease, stage 3 unspecified; Z87.891 Personal history of nicotine dependence; E66.9 Obesity, unspecified; Z68.28 Body mass index [BMI] 28.0-28.9, adult
CPT/HCPCS: 0275T; 82948; 99199; A9270; C1889; J0330; J0690; J2003; J2405; J2704; J7120

== ENCOUNTER 2024-09-05 07:21 | Inpatient (IN) | payer OTHER, SELFPAY ==
--- NOTE | ~2024-09-05 | CT_ITS ---
CT brain wo con Ordering provider: Carlos Sheridan MD History: 84 years Male with . r/o CVA . Comparison: September 10, 2024 Technique: CT of the head without contrast. Radiation reduction technique utilized.The dose-length pr oduct was 605.33 mGy-cm. FINDINGS: BRAIN PARENCHYMA AND CSF SPACES: Hypodensity in the right occipital area unchanged from previous exam ination. Old lacunar infarct in the right internal capsule anterior limb. Mild leukoaraiosis and diff use cortical atrophy. Mild atheromatous disease. No midline shift, mass effect or hemorrhage. The br ain parenchyma and CSF spaces are otherwise normal. VISUALIZED PARANASAL SINUSES: Well aerated. MASTOIDS: Well aerated. BONES: The bones appear intact. SOFT TISSUES: Visualized nasopharynx is normal. Superficial soft tissues are normal. IMPRESSION: No acute intracranial findings. Reviewed, dictated and finalized at location A.
--- NOTE | ~2024-09-05 | XR_ITS ---
Left Knee Technique: AP, lateral, and oblique views were obtained. Clinical History: Pain Findings: No fracture or dislocation is seen. Osseous alignment is anatomic. Joint spaces are preserv ed without degenerative or erosive change. Soft tissues are unremarkable. No joint effusion is seen. Impression: Unremarkable left knee radiographs. Reviewed, dictated and finalized at [facility]. Impression: Unremarkable left knee radiographs.
--- NOTE | ~2024-09-05 | XR_ITS ---
AP view of the pelvis and AP and lateral views of the left hip Clinical history: Pain Findings: No acute fracture or dislocation is seen. Osseous alignment is anatomic. Bilateral hip and SI joint spaces are preserved. Soft tissues are unremarkable. Impression: No significant abnormality is seen. Reviewed, dictated and finalized at [facility]. Impression: No significant abnormality is seen.
--- NOTE | ~2024-09-05 | US_ITS ---
EXAMINATION: US venous doppler [facility] DATE: 09/05/2024 23:33 INDICATION: Bilateral lower extremity edema and pain TECHNIQUE: Grayscale ultrasound images without and with compression and Doppler ultrasound images of the bilateral lower extremity veins were obtained. COMPARISON: None. FINDINGS: The visualized portions of right common femoral vein, profunda (deep) femoral vein, femoral vein, pop liteal vein and greater saphenous vein outflow are patent. Noncompressibility and absence of flow wit hin the right posterior tibial and peroneal veins consistent with deep venous thrombosis. The visualized portions of left common femoral vein, profunda femoral vein, femoral vein, popliteal v ein and greater saphenous vein outflow are patent. Unable to tolerate compressibility evaluation within the left posterior tibial and peroneal veins. IMPRESSION: Deep venous thrombosis of the right posterior tibial and peroneal veins. Unable to evaluate the left posterior tibial and peroneal veins secondary to patient intolerance. Reviewed, dictated and finalized at location A. IMPRESSION: Deep venous thrombosis of the right posterior tibial and peroneal veins. Unable to evaluate the left posterior tibial and peroneal veins secondary to pa tient intolerance.
--- NOTE | ~2024-09-05 | US_ITS ---
EXAMINATION: US carotid duplex BI DATE: 09/10/2024 17:15 CDT INDICATION: Stroke TECHNIQUE: Grayscale, color Doppler, and pulsed Doppler images of the cervical carotid arteries were obtained. The degree of vessel stenosis is placed in one of the following categories: normal, <50%, 50-69%, >=7 0% but less than near-occlusion, near-occlusion, or total occlusion. Note that percent stenosis relative to normal distal artery lumen diameter is indirectly measured fro m velocity measurements as described originally by Andrew, et al. Radiology 2003; 229:340-346 and upda purvi by Hai Condon et al STROKE 2012;43(3);915-921. COMPARISON: 07/20/2016 FINDINGS: There is mild atherosclerosis of both carotid arteries. Peak systolic velocity (in cm/s) is detailed below RIGHT: Right common carotid artery (CCA): 129 cm/s. Right internal carotid artery (ICA) PSV: 174 cm/s. Right ICA end-diastolic velocity (EDV): 19 cm/s. Right ICA/CCA PSV ratio is 1.3. Right external carotid artery (ECA): 145cm/s. There is antegrade flow in the right vertebral artery LEFT: Left common carotid artery (CCA): 146 cm/s. Left internal carotid artery (ICA) PSV: 154 cm/s. Left ICA end-diastolic velocity (EDV): 16 cm/s. Left ICA/CCA PSV ratio is 1.1. Left external carotid artery (ECA): 208cm/s. There is antegrade flow in the left vertebral artery. IMPRESSION: 1. 50-69% stenosis in the right internal carotid artery, by peak systolic velocity criteria. 2. 50-69% stenosis in the left internal carotid artery, by peak systolic velocity criteria. Reviewed, dictated and finalized at location A. IMPRESSION: 1. 50-69% stenosis in the right internal carotid artery, by peak systolic veloc ity criteria. 2. 50-69% stenosis in the left internal carotid artery, by peak systolic veloci ty criteria.
--- NOTE | ~2024-09-05 | XR_ITS ---
CHEST RADIOGRAPH CLINICAL HISTORY: R/O pna . COMPARISON: 09/05/2024 TECHNIQUE: Single portable view of the chest. FINDINGS The cardiomediastinal silhouette is partially obscured. Redemonstration of a left-sided pleural effusion. Increased interstitial markings are identified bilaterally, findings suggesting mild pulmonary vascul ar congestion. The lungs are otherwise clear. IMPRESSION: Mild pulmonary vascular congestion with a small left-sided pleural effusion. Reviewed, dictated and finalized at location A.
--- NOTE | ~2024-09-05 | CT_ITS ---
EXAMINATION: CT knee LT wo con DATE: 09/07/2024 10:57 INDICATION: Left knee pain post fall TECHNIQUE: High resolution computed tomography (CT) of the left knee was performed without intravenou s contrast. Additional sagittal and coronal reconstructions were performed. Automated exposure contro l and iterative reconstruction technique were employed. The dose-length product was 656.28 mGy-cm. COMPARISON: Left knee radiographs date FINDINGS: Bone alignment is normal. No fracture. Chondrocalcinosis at the medial lateral compartments of the le ft knee with at least mild joint space narrowing in the medial compartment of the joint space narrowi ng can be underestimated on nonweightbearing imaging. No knee joint effusion. There is stranding in t he subcutaneous tissues along the posterior aspect of the distal thigh and proximal calf which could be related to posttraumatic contusion. There is potentially age-related fatty atrophy of the musculat ure most prominent in the distal quadriceps muscles and the medial head of the gastrocnemius muscle. Scattered arthritic chronic calcification is along the arteries of the distal thigh and proximal calf . IMPRESSION: 1. No left knee joint effusion or acute osseous abnormality. Reviewed, dictated and finalized at location A.
--- NOTE | ~2024-09-05 | CT_ITS ---
CT head without contrast Indication: Status post fall COMPARISON: 05/02/2024 Technique: Serial scans were obtained through the brain without the administration of contrast. Dose reduction technique was used on this scan by utilizing automated exposure control and iterative recon struction technique. The dose-length product (DLP) was 605.33 mGy-cm. Findings: Stable focal hyperdensity in the right occipital lobe, suggestive of small cavernoma. There is no evidence of acute intracranial hemorrhage or acute infarct. The ventricles and subarachnoid s paces are dilated, consistent with mild atrophy. Low attenuation regions are seen within the periven tricular white matter bilaterally, likely representing changes from chronic microvascular ischemic di sease. There is no evidence of edema, mass effect or midline shift. The visualized paranasal sinuse s and mastoid air cells are clear. Impression: No acute abnormality. Stable focal hyperdensity in the right occipital lobe, suggestive of small cave rnoma. Atrophy and chronic white matter changes, as above. Reviewed, dictated and finalized at location . Impression: No acute abnormality. Stable focal hyperdensity in the right occipital lobe, lott ggestive of small cavernoma. Atrophy and chronic white matter changes, as above.
--- NOTE | ~2024-09-05 | MR_ITS ---
MR brain/brain stem wo con Ordering provider: Carlos Sheridan MD History: 84 years Male with . R/O CVA . Comparison: CT head performed on September 08, 2024 Technique: MRI brain was performed without contrast. Motion artifacts are noted. FINDINGS: BONES: Normal. CRANIOCERVICAL JUNCTION: normal. PITUITARY: Normal. MAJOR INTRACRANIAL VESSELS: Normal flow void. OPTIC NERVES AND CRANIAL NERVES VII AND VIII COMPLEXES: Grossly normal. BRAIN PARENCHYMA AND CSF SPACES: Mild nonspecific T2 white matter hyperintensities are seen in a lake ateral periventricular and deep white matter distribution which are likely related to chronic ischemi c small vessel disease. Mild diffuse cortical atrophy. The brainstem and cerebellum are normal. No ac alcira or chronic intracranial hemorrhage. No extra axial fluid collections. Diffusion weighted and ADC mapping images reveal diffusion restriction in the right basal ganglia and insula which may indicate recent ischemia. No midline shift or mass effect. PARANASAL SINUSES: Normal. MASTOIDS: Effusion in the left mastoid air cells. SUPERFICIAL/SURROUNDING SOFT TISSUES: Normal. IMPRESSION: 1. 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 Clinical correlation and follow-up advised. 2. Deep white matter ischemic changes with mild brain atrophy. Reviewed, dictated and finalized at location A. IMPRESSION: 1. Highly suggestive acute/subacute infarct in the right basal ganglia and adj acent insula. Clinical correlation and follow-up advised. 2. Deep white matter ischemic changes with mild brain atrophy.
--- NOTE | ~2024-09-05 | CT_ITS ---
Noncontrast CT scan of the cervical spine Technique: Multiple contiguous axial [address] images of the cervical spine were obtained and rec onstructed in 2D sagittal and coronal planes on the acquisition scanner. Dose reduction technique was used on this scan by utilizing automated exposure control, adjustment of the mA and/or kV according to patient size. The dose-length product (DLP) was 421.07 mGy-cm. Clinical History: Pain Findings: No fractures or dislocations. There is severe degenerative disc narrowing at C5-C6. There is partial fusion across the C6-C7 and C7-T1 disc spaces with marked narrowing. There is moderate to advanced degenerative disc narrowing at C3-C4. At C2-C3, there is right neural foraminal narrowing wi th right facet arthropathy/hypertrophy. At C3-C4, there is disc osteophyte convex and bilateral facet arthropathy with bilateral neural foraminal narrowing. Possible minimal canal stenosis. At C4-C5, th ere is bilateral facet arthropathy with bilateral neural foraminal narrowing. At C5-C6, there is prob able mild left neural foraminal narrowing. At C6-C7, there is mild bilateral neural foraminal narrowi ng. No prevertebral soft tissue swelling. Partially imaged left pleural effusion present. Impression: No fracture or subluxation of the cervical spine. Advanced degenerative spondylosis, as above. Partially imaged left pleural effusion. Reviewed, dictated and finalized at [facility]. Impression: No fracture or subluxation of the cervical spine. Advanced degenerative spondylosis, as above. Partially imaged left pleural effusion.
--- NOTE | ~2024-09-05 | CT_ITS ---
CLINICAL INDICATION: Remote history of a fall (on 09/05/2024) with persistent left hip and shoulder pa in COMPARISON: Plain radiographic evaluation of the left hip and shoulder, performed 09/05/2024. Reference is also made to a CT examination of the chest dated 06/26/[address] examination of the a bdomen and pelvis dated 07/09/2024. Reference is also made to a CT examination of the lumbar spine dated 05/02/2024 TECHNIQUE: Multiple contiguous axial images of the chest, abdomen and pelvis were performed without t he administration of intravenous contrast The dose-length product (DLP) was 1688.37 mGy-cm. Automated exposure control and iterative reconstruction technique were employed. FINDINGS/OBSERVATIONS: LUNG:Multiple pulmonary nodules detected bilaterally, all are an interval change from the 2020 examin ation. 5 mm nodule, right upper lobe, axial series, image 42 5.6 mm nodule, right upper lobe, axial series, image 56. 6.7 mm nodule, right upper lobe, axial series image 62 5.8 mm nodule, right middle lobe, axial series, image 80 7.7 mm nodule, right lower lobe, axial series, image 69 (increased in size from 07/09/2024 CT of the a bdomen and pelvis when it measured 6.7 mm). 7.5 mm nodule, left upper lobe, axial series, image 58 Bilobed 10.7 mm nodule, left lower lobe, axial series, image 68 Increased left-sided pleural effusion (attenuation values consistent with simple fluid) with adjacent compressive atelectasis. Honeycombing is detected within the right lung base, unchanged. Cylindrical bronchiectasis within the remainder of the bilateral lung hernandez, unchanged. No evidence of contusion, pneumothorax or hemothorax. MEDIASTINUM: Limited evaluation without intravenous contrast. HEART: The heart is enlarged, with a small pericardial effusion. SOFT TISSUES OF THE CHEST: Unremarkable. BONES OF THE CHEST: Prior fracture deformity of the left 11th proximal posterior rib, present on the 2024 examination but an interval change from 2020. No acute or subacute rib fracture is detected bilaterally. No scapular fractures are noted. The sternum is intact. No acute or subacute thoracic vertebral body fractures are noted. The bilateral shoulders were not included on the 2024 examination for comparison. Possible subacute fracture within the anterior margin of the left acromion (best seen on sagittal rec onstructed images of the chest #159) although favor degenerative disease. High riding humeral head is detected bilaterally suggesting underlying rotator cuff tear, not an inte rval change from prior. Significant degenerative disease within the left acromioclavicular joint space, without acute fractur e identified. The glenoid fossa and the left humeral head are otherwise unremarkable. Significant joint effusion surrounds left glenohumeral joint, in comparison to the right. Liver: The liver demonstrates homogeneous attenuation and is not enlarged. No perihepatic fluid to suggest acute traumatic injury. Gallbladder and biliary system: The gallbladder is distended, and otherwise unremarkable. Pancreas: Limited evaluation of the pancreas secondary to the lack of intravenous contrast. No peripancreatic f luid is identified to suggest acute traumatic injury. Spleen: Punctate calcifications identified within the splenic parenchyma, suggesting prior granulomat ous disease. The remainder of the spleen demonstrates homogeneous attenuation and is not enlarged. No perisplenic fluid is identified to suggest acute traumatic injury. Kidneys: Redemonstration of the 2.3 cm soft tissue attenuation focus within the left kidney, unchange d from the 07/09/2024 examination and not included on the 2020 examination. Redemonstration of a 7 mm nonobstructing stone within the lower pole of the left kidney. The remainder of the bilateral kidneys are otherwise unremarkable, without hydronephrosis or addition al renal calculi. No perirenal fluid is identified to suggest acute traumatic injury. Adrenal glands: Unremarkable. Gastrointestinal tract: Colonic diverticulosis without surrounding inflammatory change. No free fluid within the abdomen or pelvis. Vasculature: Densely calcified atherosclerotic disease. Lymph nodes: Limited evaluation without intravenous contrast. Pelvic structures: The bladder is distended, and otherwise unremarkable. The prostate gland demonstrates bulky calcifications and is only minimally enlarged. Body wall and musculoskeletal: Small fat-containing umbilical hernia. Age-appropriate degenerative disease within the lumbosacral spine with anterior fixation of L5/S1. No acute or subacute fracture within the pelvis or specifically, the left hip to account for patient' s pain. Redemonstration of a sclerotic lesion adjacent to the SI joint within the left iliac wing, unchanged from CT examination of the lumbar spine dated 05/02/2024. Induration and a focus of dense fluid attenuation are identified adjacent to the left posterior super ior iliac spine measuring 4 x 6.4 x 6.2 cm (anterior to posterior x medial to lateral x cranial to ca udal dimension), likely representing a soft tissue hematoma. IMPRESSION: Soft tissue hematoma adjacent to the left posterior superior iliac spine likely the cause of patient' s left hip pain without underlying fracture. Significant glenohumeral and acromioclavicular joint effusion without underlying fracture deformity o f the left shoulder, possibly the cause of patient's left shoulder discomfort. High riding humeral heads bilaterally suggesting bilateral rotator cuff injury. Otherwise: No cross-sectional imaging evidence to suggest the presence of acute traumatic injury within the ches t, abdomen or pelvis. Specifically, no hollow or solid organ injury. In addition: Multiple pulmonary nodules detected bilaterally for which follow-up as per Fleischner guidelines is r ecommended (repeat CT in 3 months, PET/CT, or tissue sampling). Reviewed, dictated and finalized at location A. IMPRESSION: Soft tissue hematoma adjacent to the left posterior superior iliac spine likely the cause of patient's left hip pain without underlying fracture. Significant glenohumeral and acromioclavicular joint effusion without underlyin g fracture deformity of the left shoulder, possibly the cause of patient's left shoulder discomfort. High riding humeral heads bilaterally suggesting bilateral rotator cuff injury. Otherwise: No cross-sectional imaging evidence to suggest the presence of acute traumatic injury within the chest, abdomen or pelvis. Specifically, no hollow or solid or heaven injury. In addition: Multiple pulmonary nodules detected bilaterally for which follow-up as per Fleeirs glassr guidelines is recommended (repeat CT in 3 months, PET/CT, or tissue samp ling).
--- NOTE | ~2024-09-05 | XR_ITS ---
Left Shoulder Technique: AP and scapular Y views were obtained. Clinical History: Pain Findings: No fracture or dislocation is seen. High riding humeral head suggests underlying rotator cu ff tear. The glenohumeral and acromioclavicular joints demonstrate mild degenerative change. Soft tis sues are unremarkable. Impression: High riding humeral head suggests underlying rotator cuff tear. No acute fracture or dislocation. Degenerative change, as above. Reviewed, dictated and finalized at location M. Impression: High riding humeral head suggests underlying rotator cuff tear. No acute fracture or dislocation. Degenerative change, as above.
--- NOTE | ~2024-09-05 | XR_ITS ---
HISTORY: Left-sided pain after fall COMPARISON: 12/09/2022 TECHNIQUE: 4 views of the left ribs were performed FINDINGS: Prior fracture deformity within the left 10th and 11th ribs. No acute displaced left rib fracture is appreciated. The adjacent left lung is unremarkable. Bone mineralization is age-appropriate. IMPRESSION: No acute displaced left sided rib fracture, as detailed above. Reviewed, dictated and finalized at location A.
--- NOTE | ~2024-09-05 | XR_ITS ---
Portable chest x-ray Comparison: 08/08/2024 Clinical History: Status post fall Findings: Lungs are clear, without focal consolidation or pleural effusion. Cardiomediastinal silho uette is stable. Bones and soft tissues are unremarkable. Impression: Clear lungs. Reviewed, dictated and finalized at location . Impression: Clear lungs.
[2024-09-05 07:10] VITALS: BP 142/89; PULSE 85; RESP 18; TEMP 36.6; O2SAT 94
--- NOTE | 2024-09-05 08:00 | ED.FALL ---
HPI - Fall General Chief Complaint: Fall Stated Complaint: fall, hip & shoulder pain Source: patient, family and EMS Mode of arrival: EMS Limitations: no limitations History of Present Illness HPI Narrative: 84 years old white male came from home by ambulance after missing last step going down stair, knees buckled and fell complaining of left shoulder left hip and left knee pain. Patient denies loss of consciousness, head or neck or back injury. History of multiple falls last 1 was 2 weeks ago patient currently on physical therapy/rehab patient does use a walker at home. Patient did not take his medication this morning prior to arrival Related Data Home Medications ?Medication ?Instructions ?Recorded ?Confirmed ?Last Taken ?Type multivit with minerals-iron 18 1 tablet PO DAILY 12/10/21 08/17/24 07/08/24 History mg-folic ac 400 mcg-vit K 25 mcg tablet (Adults Multivitamin) vitamin B complex (B 1 tablet PO DAILY 12/10/21 08/17/24 07/08/24 History Complex-Vitamin B12 tablet) atorvastatin 40 mg tablet 40 mg PO QPM 10/21/23 08/17/24 07/08/24 History omega-3 fatty acids 1,000 mg PO DAILY 04/09/24 08/17/24 07/08/24 History diltiazem HCl 180 mg 180 mg PO Q24H 05/02/24 08/17/24 07/08/24 History capsule,extended release 24 hr Allergies Allergy/AdvReac Type Severity Reaction Status Date / Time Opioids - Morphine Analogues AdvReac Intermediate Nausea and Verified 09/05/24 07:25 Vomiting PMFSH Past Medical History Medical History Knee pain Back pain Acute blood loss anemia Chronic kidney disease, stage 3 Chronic anticoagulation Cerebral cavernoma Dorsalgia Obstructive sleep apnea intolerant to CPAP Lumbosacral stenosis with neurogenic claudication with epidural steroid injection L4-L5 December 2022 Mild cognitive impairment COPD with asthma Lumbosacral radiculopathy Claudication of both lower extremities Postlaminectomy syndrome Lumbosacral spondylosis Long COVID Atrial fibrillation Benign non-nodular prostatic hyperplasia without lower urinary tract symptoms Essential hypertension 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 Surgical History Surgical History History of cardiac catheterization (03/2023) multivessel coronary disease to 80% stenosis of the proximal LAD 70% stenosis midportion of LAD very small diagonal branch, proximal and mid left circ have luminal irregularities 90% long stenosis left circumflex, small caliber obtuse marginal branch with mild diffuse disease obtuse marginal 2 has a moderate stenosis of the midportion right coronary artery is dominant vessel with 90% stenosis of the midportion and mid RPDA has 2 tandem stenosis is of 60-70% the patient was referred for CV surgery however the patient then underwent staged procedure at [facility] with PCI and stent to mid distal left circ and in September 2023 he had a PCI to the mid RCA History of back surgery Lumbar fusion History of cataract surgery Family History Family History Sibling Patient's sister is in good health Patient's brother is in good health Father Heart disease Acute myocardial infarction Telangiectasia Lflny-Yghhu-Fmirr disease Angiodysplasia AVM (arteriovenous malformation) Mother Acute myocardial infarction Social History Social History Social History: Surrogate medical decision maker: Genovevademi Villa, spouse. Code status: DO NOT RESUSCITATE. Smoking packs per day: 0.5 Smoking cigarettes per day: 10.0 Years smoked: 2 Smoking pack-years: 1.00 Smoking status: Former smoker Second hand tobacco smoke exposure: No Alcohol intake: never Substance use: never Substance use type: does not use Do You Feel Safe in your Home?: Yes Lack of Transportation: No Lack of Food: Never True Current Housing: I Have Housing Concerned About Future Housing: No Difficulty Paying Gas/Electric Bills: No Difficulty Paying for Meds: No Currently Unemployed: No Education: Grade School Difficulty w/ Childcare or Family Care: No Living arrangements: with family Additional living arrangements comments: Lives with in [place]. 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 Spiritual care concerns: No Course Vital Signs Vital signs: Vital Signs Temperature 36.6 C 09/05/24 07:10 Pulse Rate 85 09/05/24 07:10 Respiratory Rate 18 09/05/24 07:10 Blood Pressure 142/89 H 09/05/24 07:10 Pulse Oximetry 94 09/05/24 07:10 Oxygen Delivery Room Air 09/05/24 07:10 Temperature 36.6 C 09/05/24 07:10 Pulse Rate 65 09/05/24 10:20 Respiratory Rate 18 09/05/24 10:20 Blood Pressure 123/63 09/05/24 10:20 Pulse Oximetry 97 09/05/24 10:20 Oxygen Delivery Room Air 09/05/24 11:50 MDM - Fall MDM Narrative Medical decision making narrative: PATIENT HAD A FALL AT HOME PRIOR TO ARRIVAL COMPLAINING OF LEFT SHOULDER, LEFT HIP AND LEFT KNEE PAIN. VITAL SIGNS ARE STABLE PHYSICAL EXAMINATION CONSISTENT WITH MILD TO MODERATE TENDERNESS OF THE LEFT SHOULDER LEFT HIP AND LEFT KNEE, NO DEFORMITY. X-RAY OF THE LEFT SHOULDER, LEFT HIP AND PELVIS AND LEFT KNEE SHOWED NO ACUTE OSSEOUS ABNORMALITY. HISTORY OF FALLS, INTAKE SPECIALIST CONSULT, PHYSICAL THERAPY EVALUATION INDICATED THAT PATIENT CAN NOT GO HOME AND NEED TO BE HOSPITALIZED FOR REHAB PLACEMENT. ADMIT TO HOSPITALIST OBSERVATION 24. Differential Diagnosis Differential diagnosis: Likely other ( ABOVE) Imaging Data Radiologist's impression: Impressions Cervical Spine CT 09/05/24 08:05 Impression: No fracture or subluxation of the cervical spine. Advanced degenerative spondylosis, as above. Partially imaged left pleural effusion. Head CT 09/05/24 08:08 Impression: No acute abnormality. Stable focal hyperdensity in the right occipital lobe, suggestive of small cavernoma. Atrophy and chronic white matter changes, as above. Hip/Pelvis X-Ray 09/05/24 08:25 Impression: No significant abnormality is seen. Shoulder X-Ray 09/05/24 08:25 Impression: High riding humeral head suggests underlying rotator cuff tear. No acute fracture or dislocation. Degenerative change, as above. Knee X-Ray 09/05/24 08:26 Impression: Unremarkable left knee radiographs. Critical Care Time Critical Care Time Critical Care Time: No Discharge Plan Discharge Clinical Impression: Unable to ambulate, Fall Patient Disposition: Still a Patient Condition: Stable Patient Language: Zimbabwean Prescriptions: No Action vitamin B complex [B Complex-Vitamin B12] Tablet 1 tablet PO DAILY Adults Multivitamin 18 mg iron-400 mcg-25 mcg Tablet 1 tablet PO DAILY atorvastatin 40 mg tablet 40 mg PO QPM omega-3 fatty acids Capsule 1,000 mg PO DAILY ferrous sulfate 325 mg (65 mg iron) tablet 325 mg PO DAILY Qty: 90 0RF albuterol sulfate [ProAir HFA] 90 mcg/actuation HFA aerosol inhaler 2 puff INHALATION Q4H PRN (Reason: shortness of breath or wheezing) Qty: 8.5 5RF Xarelto 20 mg tablet 20 mg PO QPM Qty: 30 5RF Rx Instructions: must administer with evening meal metformin 1,000 mg tablet 1,000 mg PO DAILY Qty: 180 1RF diltiazem HCl 180 mg capsule,extended release 24hr 180 mg PO Q24H Rx Instructions: TAKE 1 CAPSULE BY MOUTH EVERY DAY (DME) lancets [Lancets, Super Thin] Misc See Rx Instructions .ROUTE .MEDSUPPLY Qty: 100 2RF Rx Instructions: Use to check blood sugar daily (DME) Contour Next Test Strips Strip See Rx Instructions .ROUTE .MEDSUPPLY Qty: 100 0RF Rx Instructions: Use to test blood sugar once daily finasteride 5 mg tablet See Rx Instructions .ROUTE .COMPLEX Qty: 90 1RF Dose Instruction: TAKE 1 TABLET BY MOUTH EVERY DAY Rx Instructions: TAKE 1 TABLET BY MOUTH EVERY DAY fluticasone propion-salmeterol [Wixela Inhub] 250-50 mcg/dose blister with device See Rx Instructions .ROUTE .COMPLEX Qty: 180 1RF Dose Instruction: INHALE 1 PUFF BY MOUTH TWICE A DAY Rx Instructions: INHALE 1 PUFF BY MOUTH TWICE A DAY oxybutynin chloride 15 mg tablet extended release 24hr 15 mg PO HS Qty: 90 1RF clopidogrel 75 mg tablet See Rx Instructions .ROUTE .COMPLEX Qty: 90 2RF Dose Instruction: TAKE 1 TABLET BY MOUTH EVERY DAY Rx Instructions: TAKE 1 TABLET BY MOUTH EVERY DAY Follow-up/Referrals: UNKNOWN,DOCTOR [Primary Care Provider] -
--- OUTSIDE RECORDS SUMMARY | 2024-09-05 08:03 | XMS_ITS | Referral Summary ---
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 Gender Identity Not on file Sexual Orientation [...] on file Medical Devices Implanted Type Area Exchange Underwriting Consultant Device Identifier Shelf Expiration Date Model / Serial / Lot Medtronic Card Vasc Surgery 2.50 X 34mm Cole Eldred Rx Coronary Stent [id number] - [id number] Implanted:Qty: 1 on 09/01/[facility] 06/17/2026 [id number] / / [id number] [employer] [facility] Device Vascular Closure Femoral Artery Bioabsorbable Dual Method Vascade 6-7fr Collagen [id number] - [id number] Implanted:Qty: 1 on 09/01/2023 by Hitesh Moreau MD at [facility] [employer] 03/10/2025 [id number] / / [id number] Medtronic [facility] Vasc Surgery 3.0 X 30mm Cole Eldred Rx Coronary Stent [id number] - [id number] Implanted:Qty: 1 on 10/14/2023 [facility] Vasc Surgery 10/13/2025 [id number] / / [id number] Insurance [facility] Care Teams Chief Security And Safety Officer Relationship Specialty Start Date End Date Jose Nolan MD PCP - General Family Practice 05/31/23
--- OUTSIDE RECORDS SUMMARY | 2024-09-05 08:03 | XMS_ITS | Clinical Summary ---
Author Organization [facility] Address [address] [place] [address] Care Team Providers Care Automatic Clipper Name Role Phone Dale Saldaña MD Primary Care Provider [phone] Source Comments [facility],non-owned Affiliates and Associated Physician Practices is amultiple site organization consisting of ambulatory clinics and hospital sitesin [place], [place], [place] and [place]. This disclosure is being madepursuant to the Care Everywhere program and may not contain all information available regarding this patient. Last updated 18.[facility] Allergies Active Allergy Reactions Criticality Noted Date Comments Morphine Nausea and/or Vomiting Low 06/13/2023 Medications * Be aware that medications may not be up to date on this document. Alwaysverify current medications with the patient. fluticasone-jeremie meterol (Advair/Wixela) 250-50 MCG/ACT inhaler Inhale 1 (one) [...] at Not on file Legal Sex Male 8:54 AM CDT Gender Identity Not on file Sexual Orientation Not on file Last Filed Vital Signs Vital Sign Reading Time Taken Comments Blood Pressure 143/85 06/30/2023 3:13 PM PILE FABRIC KNITTER Pulse 82 06/30/2023 3:13 PM PILE FABRIC KNITTER Temperature 36.7 C (98.1 F) 06/30/2023 3:13 PM PILE FABRIC KNITTER Respiratory Rate - - Oxygen Saturation 96% 06/30/2023 3:13 PM PILE FABRIC KNITTER Inhaled Oxygen Concentration - - Weight 100.7 kg (222 lb) 06/30/2023 3:13 PM PILE FABRIC KNITTER Height 180.3 cm (5' 11 ) 06/30/2023 3:13 PM PILE FABRIC KNITTER Body Mass Index 30.96 06/30/2023 3:13 PM PILE FABRIC KNITTER Plan of Treatment Health Maintenance Due Date Last Done Comments MEDICARE AWV 12 MONTHS 1941 DTAP/TDAP/TD VACCINES (1 - Tdap) 1960 PNEUMOCOCCAL VACCINE 50+ (1 of 1 - PCV) 1991 ZOSTER VACCINE (1 of 2) 1991 Respiratory Syncytial Virus (RSV) Vaccine Pt: or over 60 yrs (1 - 1-dose 75+ series) 2016 COVID-19 VACCINE (2023-2 5 season) 2024 DEPRESSION SCREENING 05/16/2024 INFLUENZA VACCINE (Season Ended) 2025 HEPATITIS B VACCINE Aged Out No longe [...] on patient's age to complete this topic Insurance [employer] Care Teams Automatic Clipper Relationship Specialty Start Date End Date Dale Saldaña MD PCP - General 03/09/18
--- OUTSIDE RECORDS SUMMARY | 2024-09-05 08:03 | XMS_ITS | Clinical Summary ---
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 Gender Identity Not on file Sexual Orientation [...] 10/05/2022, 01/22/2022 Medical Devices Implanted Type Area Manager Meeting Device Identifier Shelf Expiration Date Model / Serial / Lot Medtronic Card Vasc Surgery 2.50 X 34mm Halls Gracey Rx Coronary Stent [id number] - [id number] Implanted:Qty: 1 on 09/01/2023 by Hitesh Moreau MD at [facility] Medtronic Card Vasc Surgery 06/17/2026 [id number] / / [id number] [employer] Device Vascular Closure Femoral Artery Bioabsorbable Dual Method Vascade 6-7fr Collagen [id number] - [id number] Implanted:Qty: 1 on 09/01/2023 by Hitesh Moreau MD at [facility] 03/10/2025 [id number]-0 [id number] / / [id number] Medtronic Card Vasc Surgery 3.0 X 30mm Cole Gracey Rx Coronary Stent [id number] - [id number] Implanted:Qty: 1 on 10/14/2023 by Hitesh Moreau MD at [facility] Medtronic Card Vasc Surgery 10/13/2025 [id number] / / [id number] Insurance [facility] Care Teams Assembly Line Supervisor Relationship Specialty Start Date End Date Jose Nolan MD PCP - General Family Practice 05/31/23
--- NOTE | 2024-09-05 09:24 | PCCCNOTE ---
Meet with pt and . Pt having pain and pain and generalized weakness is creating difficulty with movement at home. Recent back surgery; PT OT evaluation ordered for possible SNF placement. Pt has [employer] insurance which will need prior auth for placement.
[2024-09-05 10:20] VITALS: BP 123/63; PULSE 65; RESP 18; O2SAT 97
--- NOTE | 2024-09-05 11:39 | PC.NURSE ---
PT/OT therapist at bedside
[2024-09-05 11:50] VITALS: BMI 10.0
--- NOTE | 2024-09-05 12:45 | ECG_ITS ---
Test Date: 2024-09-05 13:10:21 Measurements Intervals [place] Rate: 81 P: 0 VT: 0 QRS: -59 QRSD: 99 T: 30 QT: 381 QTc: 443 Interpretive Statements ATRIAL FIBRILLATION LEFT ANTERIOR FASCICULAR BLOCK CANNOT R/O SEPTAL INFARCT, AGE INDETERMINATE ABNORMAL ECG Compared to ECG 08/08/2024 12:27:26 Left anterior fascicular block now present Electronically Signed On 09-05-2024 15:40:40 CDT by Colby Noonan D.O.
[2024-09-05 12:53] VITALS: BP 138/91; PULSE 83; RESP 20; O2SAT 100
--- NOTE | 2024-09-05 13:05 | P.HP_ITS ---
H&P: HPI History of Present Illness Date/Time: 09/05/24 13:05 Chief Complaint: Left shoulder and hip pain after a fall. Narrative: This is a pleasant 84-year-old male with paroxysmal atrial fibrillation on chronic anticoagulation, coronary artery disease, hypertension, hyperlipidemia, type 2 diabetes mellitus, chronic obstructive pulmonary disease, untreated obstructive sleep apnea, benign prostatic hyperplasia, chronic kidney disease, arthritis, and lumbar spinal stenosis with neurogenic claudication status post minimally invasive lumbar decompression at L3-L4 and L4-L5 earlier this month who presented to the emergency department from home for evaluation of left shoulder and hip pain after fall. He was walking down the stairs yesterday morning and when he got to the last step his legs gave out and he fell down onto his left side. He has had significant pain in his left shoulder and to lesser extent in the left hip since that time. He has had increasing pain in the shoulder since that time, to the point where he can barely even lifted up due to excruciating pain, and came in for evaluation. There was no head trauma or loss of consciousness in the fall and he denies antecedent symptoms prior to the fall. He voices frustration as he has been participating in PT since his surgery and he feels as though he is not improving. thinks he needs rehab. The patient denies fever, cold and flu symptoms, chest and pleuritic pain, shortness of breath, nausea, vomiting, diarrhea, and dysuria. In the ED: Vital signs were stable on arrival. CTA of the head and cervical spine were without acute findings. X-rays of the left hip, pelvis, shoulder, and knee were also without acute findings. Physical therapy evaluated the patient in the ED and he did not do well. Care coordination was then contacted to see if he could be placed in a rehab facility however he requires preauthorization by his insurance and is being admitted in this setting. Review of Systems Review of Systems: 12 systems were reviewed and are negativ e except for as per HPI. COUNTS INCLUDE 234 BEDS AT THE [facility] Past Medical History Medical History (Updated 09/05/24 @ 21:24 by Alyssa Chang PA-C) Chronic kidney disease, stage 3 Chronic anticoagulation Cerebral cavernoma Obstructive sleep apnea intolerant to CPAP Lumbosacral stenosis with neurogenic claudication with epidural steroid injection L4-L5 December 2022 Mild cognitive impairment COPD with asthma Lumbosacral radiculopathy Claudication of both lower extremities Postlaminectomy syndrome Lumbosacral spondylosis Long COVID Atrial fibrillation Benign non-nodular prostatic hyperplasia without lower urinary tract symptoms Essential hypertension 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 Surgical History Surgical History (Updated 09/05/24 @ 13:13 by Alyssa Chang PA-C) History of lumbar discectomy (08/2024) minimally invasive at L3-L4 and L4-L5 History of lumbar fusion History of cardiac catheterization (03/2023) multivessel coronary disease to 80% stenosis of the proximal LAD 70% stenosis midportion of LAD very small diagonal branch, proximal and mid left circ have luminal irregularities 90% long stenosis left circumflex, small caliber obtuse marginal branch with mild diffuse disease obtuse marginal 2 has a moderate stenosis of the midportion right coronary artery is dominant vessel with 90% stenosis of the midportion and mid RPDA has 2 tandem stenosis is of 60-70% the patient was referred for CV surgery however the patient then underwent staged procedure at [facility] with PCI and stent to mid distal left circ and in September 2023 he had a PCI to the mid RCA History of cataract surgery Family History Family History Sibling Patient's sister is in good health Patient's brother is in good health Father Heart disease Acute myocardial infarction Telangiectasia Hpgst-Vzitv-Rhjjw disease Angiodysplasia AVM (arteriovenous malformation) Mother Acute myocardial infarction Social History Social History Social History: Surrogate medical decision maker: Genoveva Villa, spouse. Code status: DO NOT RESUSCITATE. Smoking packs per day: 0.5 Smoking cigarettes per day: 10.0 Years smoked: 2 Smoking pack-years: 1.00 Smoking status: Former smoker Second hand tobacco smoke exposure: No Alcohol intake: never Substance use: never Substance use type: does not use Do You Feel Safe in your Home?: Yes Lack of Transportation: No Lack of Food: Never True Current Housing: I Have Housing Concerned About Future Housing: No Difficulty Paying Gas/Electric Bills: No Difficulty Paying for Meds: No Currently Unemployed: No Education: Grade School Difficulty w/ Childcare or Family Care: No Living arrangements: with family Additional living arrangements comments: Lives with in [place]. 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 Spiritual care concerns: No Meds Home Medications and Allergies Home Medications ?Medication ?Instructions ?Recorded ?Confirmed ?Type lancets (Lancets, Super Thin) #100 ea 01/30/20 09/05/24 Rx blood sugar diagnostic (Contour #100 ea 03/19/20 09/05/24 Rx Next Test Strips) multivit with minerals-iron 18 1 tablet PO DAILY 12/10/21 09/05/24 History mg-folic ac 400 mcg-vit K 25 mcg tablet (Adults Multivitamin) vitamin B complex (B 1 tablet PO DAILY 12/10/21 09/05/24 History Complex-Vitamin B12 tablet) atorvastatin 40 mg tablet 40 mg PO QPM 10/21/23 09/05/24 History finasteride 5 mg tablet See Rx Instructions .Route 01/02/24 09/05/24 Rx .COMPLEX #90 tabs omega-3 fatty acids 1,000 mg PO DAILY 04/09/24 09/05/24 History diltiazem HCl 180 mg 180 mg PO Q24H 05/02/24 09/05/24 History capsule,extended release 24 hr fluticasone 250 mcg-salmeterol 50 See Rx Instructions .Route 05/25/24 09/05/24 Rx mcg/dose blistr powdr for .COMPLEX #180 ea inhalation (Wixela Inhub) clopidogrel 75 mg tablet See Rx Instructions .Route 05/28/24 09/05/24 Rx .COMPLEX #90 tabs oxybutynin chloride 15 mg 15 mg PO HS #90 tabs 05/28/24 09/05/24 Rx tablet,extended release 24 hr metformin 1,000 mg tablet 1,000 mg PO DAILY #180 tabs 07/13/24 09/05/24 Rx albuterol sulfate 90 mcg/actuation 2 puff inhalation Q4H PRN 07/19/24 09/05/24 Rx aerosol inhaler (ProAir HFA) shortness of breath or wheezing #8.5 grams ferrous sulfate 325 mg (65 mg 325 mg PO DAILY #90 tabs 07/19/24 09/05/24 Rx iron) tablet rivaroxaban 20 mg tablet (Xarelto) 20 mg PO QPM #30 tabs 08/15/24 09/05/24 Rx Allergies Allergy/AdvReac Type Severity Reaction Status Date / Time Opioids - Morphine Analogues AdvReac Intermediate Nausea and Verified 09/05/24 18:07 Vomiting Vital Signs Vital Signs - 24 hr 09/05/24 07:10 09/05/24 10:20 09/05/24 11:40 Temperature 98 F Pulse Rate 85 65 Respiratory Rate 18 18 Blood Pressure 142/89 H 123/63 Pulse Oximetry 94 97 Oxygen Delivery Room Air Room Air 09/05/24 11:50 09/05/24 12:53 Temperature Pulse Rate 83 Respiratory Rate 20 Blood Pressure 138/91 H Pulse Oximetry 100 Oxygen Delivery Room Air Exam Narrative: General: Chronically ill-appearing male in the semi-Byrnes position in bed in no acute distress. Weight: 92.8 kg. BMI: 28.5. HEENT: PERRL, EOMI. Sclera anicteric. Oral mucosa moist. Neck: Supple. Respiratory: Respirations are nonlabored he is speaking in full sentences. Cardiovascular: Regular rate and rhythm with S1-S2. Systolic murmur at the left lower sternal border and apex. Gastrointestinal: Abdomen is soft, obese, nontender, and nondistended with positive bowel sounds. Skin: Warm and dry. Scattered bruising on the upper and lower extremities. There is a bruise with underlying hematoma on the left medial calf. Skin tears on the arms, worse on the left. Extremities: No cyanosis or clubbing. Pitting edema of the lower legs. Peripheral pulses palpable. Neurological: Alert. Cranial nerves 2-12 are grossly intact. No gross focal deficits to casual conversation. Musculoskeletal: His bit tender to palpation over the left flank. He is exquisitely tender to even light palpation over the anterior left shoulder and is hesitant to move that arm due to pain. Psychiatric: Pleasant and cooperative with appropriate mood and affect. H&P: Results Labs Labs: IMAGING Cervical Spine CT 09/05/24 08:05 Impression: No fracture or subluxation of the cervical spine. Advanced degenerative spondylosis, as above. Partially imaged left pleural effusion. Head CT 09/05/24 08:08 Impression: No acute abnormality. Stable focal hyperdensity in the right occipital lobe, suggestive of small cavernoma. Atrophy and chronic white matter changes, as above. Hip/Pelvis X-Ray 09/05/24 08:25 Impression: No significant abnormality is seen. Shoulder X-Ray 09/05/24 08:25 Impression: High riding humeral head suggests underlying rotator cuff tear. No acute fracture or dislocation. Degenerative change, as above. Knee X-Ray 09/05/24 08:26 Impression: Unremarkable left knee radiographs. Assessment and Plan Assessment and plan (1) Frequent falls: Code(s): R29.6 - Repeated falls Status: Acute (2) Left shoulder pain: Code(s): M25.512 - Pain in left shoulder Status: Acute (3) Chronic anticoagulation: Code(s): Z79.01 - senior care (current) use of anticoagulants Status: Acute (4) Atrial fibrillation: Qualifiers: Atrial fibrillation type: unspecified Qualified Code(s): I48.91 - Unspecified atrial fibrillation Code(s): I48.91 - Unspecified atrial fibrillation Status: Chronic (5) Essential hypertension: Code(s): I10 - Essential (primary) hypertension Status: Chronic (6) Type 2 diabetes mellitus: Qualifiers: Diabetes mellitus complication status: without complication Diabetes mellitus cigar head puncher insulin use: without cigar head puncher use Qualified Code(s): E11.9 - Type 2 diabetes mellitus without complications Code(s): E11.9 - Type 2 diabetes mellitus without complications Status: Acute Plan The patient presented to the emergency department with complaints of left shoulder and hip pain after a fall yesterday as detailed in HPI. He has frequent falls which he attributes to ?weak legs? and he has been doing physical therapy as an outpatient. He would likely benefit from more intensive therapy and care coordination reports that he needs preauthorization through his insurance and they have suggested that the patient be admitted until he can be placed into a rehab facility. Initiate fall precautions; he is to ambulate only with assistance for now. PT/OT consulted. I will ask the orthopedic surgeon on-call to see him regarding his significant left shoulder pain. He is in chronic atrial fibrillation and is rate controlled. Rivaroxaban is currently on hold due to significant bruising from his recent fall. Lower extremity venous ultrasounds have been ordered to rule out DVT as he was off of his rivaroxaban prior to his recent surgery. Blood pressures are stable and will be monitored. Initiate sliding scale insulin, Accu-Cheks, and hypoglycemic protocol. Chronic medical conditions including chronic obstructive pulmonary disease, chronic kidney disease, anemia, and others are stable and without acute issues. His home medications will be reviewed and resumed as appropriate. Findings and treatment plan were discussed with the patient. Questions were solicited and answered to satisfaction. The patient's medical management will be taken over by the hospitalist team in a.m. Quality VTE Prophylaxis VTE prophylaxis: mechanical ordered If No VTE Prophylaxis Answer both mechanical and pharmacologic: Reason no pharmacologic proph: medical contraindication (significant bruising after fall) The patient has been admitted under observation status. Hospitalist [facility] Advance Care Plan I have confirmed that the patient's Advanced Care Plan is present, code status is documented, or surrogate decision maker is listed in patient medical record.: Yes Medication Reconciliation I have utilized all available resources to obtain, update and review the patients current medications (includes all prescriptions, OTC, herbals, cannabis, and nutritional supplements).: Yes
--- NOTE | 2024-09-05 13:55 | ADMGEN ---
This patient, Christian Villa I, was admitted to 3 [facility] Surg Room 304-02. Patient/family oriented to hospital policies and general routines including ID bracelet, bed and alarms, visiting hours, pain management, procedures, bathroom and other care routines, personal items, smoking policy, room service/diet, and visiting hours. Information on how to activate the Rapid Response Team has been discussed. Patient/Family are encouraged to report perceived risks to care and to ask questions if they do not understand what they are told or what they should do.
[2024-09-05 14:00] VITALS: BP 140/78; PULSE 79; RESP 18; TEMP 36.6; O2SAT 98
[2024-09-05 14:47] LABS: Basophils Absolute Auto 0.1 K/mm3 (0.0-0.1); Basophils Percent Auto 0.5 % (0.2-1.2); Eosinophils Absolute Auto 0.2 K/mm3 (0-0.3); Eosinophils Percent Auto 1.9 % (0-4.4); Hematocrit 38.3 % (42.0-52.0); Hemoglobin 11.7 g/dL (14.0-18.0); Immature Granulocyte Absolute 0.05 K/mm3 (0.00-0.031); Immature Granulocyte Percent A 0.4 % (0-0.5); Lymphocytes Absolute Auto 2.58 K/mm3 (0.9-3.2); Lymphocytes Percent Auto 21.9 % (18.3-44.2); Mean Corpuscular HGB Conc 30.5 g/dl (32-36); Mean Corpuscular Hemoglobin 29.7 pg (26-34); Mean Corpuscular Volume 97.2 fl (80-100); Mean Platelet Volume 9.1 fl (7.4-10.4); Monocytes Absolute Auto 0.8 K/mm3 (0.1-0.6); Neutrophils Percent Auto 68.3 % (45.5-73.1); Platelet Count Result 327 k/mm3 (150-375); Red Blood Count 3.94 M/mm3 (4.6-6.20); Red Cell Distribution Width 14.4 % (11.5-14.5); White Blood Count 11.8 K/mm3 (4.5-10.0)
[2024-09-05 14:49] VITALS: BMI 28.5
[2024-09-05] MEDS: ACETAMINOPHEN 325 MG TABLET 650 MG PO ×2 (14:54→19:44)
[2024-09-05 14:58] LABS: Alanine Aminotransferase 18 U/L (6-50); Albumin Level 3.3 g/dL (3.5-5.1); Alkaline Phosphatase 37 U/L (38-126); Anion Gap 7 mmol/L (4-12); Aspartate Amino Transferase 22 U/L (17-59); Bilirubin,Total 0.6 mg/dL (0.2-1.3); Blood Urea Nitrogen 23 mg/dL (9-20); Calcium 8.5 mg/dL (8.4-10.2); Carbon Dioxide 24 mmol/L (22-30); Chloride 107 mmol/L (98-107); Estimated CRCL calculation 48 ml/min; Estimated Glomerular Filt Rate > 60; Glucose 119 mg/dL (65-110); Potassium 4.8 mmol/L (3.4-5.0); Sodium 138 mmol/L (137-145)
[2024-09-05 16:46] LABS: Glucose Point of Care 127 mg/dl (65-105)
--- NOTE | 2024-09-05 17:58 | PC.NURSE ---
Limited mobility related to recent fall and c/o pain. Unable to tolerate standing at the side of the bed. Orthostatic vitals not completed. Bed alarm activated.
[2024-09-05 20:34] LABS: Folic Acid > 20.0 ng/mL (2.76->20); Vitamin B12 > 1000.0 pg/mL (239-931)
[2024-09-05 20:53] LABS: Glucose Point of Care 187 mg/dl (65-105)
[2024-09-05 21:22] VITALS: BP 149/80; PULSE 89; RESP 14; TEMP 36.6; O2SAT 100
[2024-09-05] MEDS: HYDROcodone/acetaminophen (*CRX) 5-325 MG TABLET 1 TAB PO (21:51)
[2024-09-05] MEDS: oxyBUTYnin CHLORIDE XL 5 MG TAB.ER.24 15 MG PO (21:52)
[2024-09-05] MEDS: ATORVASTATIN 40 MG TABLET PO (21:53)
--- NOTE | 2024-09-06 03:50 | P.PNCROSS_ITS ---
Event Note Event Note Event Note: Venous Doppler ultrasounds of the lower extremities bilaterally ordered on admi ssion resulted positive for DVT of right posterior tibial and peroneal veins. Patient could not tolerate the left leg evaluation due to pain. The patient is adamant he wants to continue Xarelto to treat this in spite of his bruising on admission as well as his fall risk. Will restart at reduced dose of 15 mg p.o. q.h.s..
[2024-09-06] MEDS: RIVAROXABAN 15 MG TABLET PO ×2 (03:56→17:37)
[2024-09-06] MEDS: HYDROcodone/acetaminophen (*CRX) 5-325 MG TABLET 1 TAB PO ×2 (03:57→17:37)
[2024-09-06 05:45] VITALS: BP 155/72; PULSE 90; RESP 14; TEMP 36.3; O2SAT 98
[2024-09-06 07:29] VITALS: PULSE 98; RESP 18; O2SAT 96
[2024-09-06] MEDS: FLUTICASONE/SALMETEROL 115-21 MCG INHALER 1 PUFF 2 PUFF INHALATION ×2 (07:29→20:08)
[2024-09-06 07:44] LABS: Glucose Point of Care 138 mg/dl (65-105)
[2024-09-06] MEDS: CLOPIDOGREL BISULFATE 75 MG TABLET BY MOUTH (08:32)
[2024-09-06] MEDS: dilTIAZem HCL CD 180 MG CAP.24HR PO (08:32)
[2024-09-06] MEDS: MULTIVITAMINS /C LUTEIN (CENTRUM SILVER) TABLET *BKC 1 TAB PO (08:32)
[2024-09-06] MEDS: FINASTERIDE 5 MG TABLET BY MOUTH (08:32)
[2024-09-06] MEDS: OMEGA 3 POLYUNSAT FATTY ACIDS 1 GM CAP PO (08:33)
[2024-09-06] MEDS: FERROUS SULFATE 325 MG TABLET DR PO (08:33)
--- NOTE | 2024-09-06 09:45 | PCOTNOTE ---
Per RN, Patient not to be seen this A.M. Patient having uncontrolled pain at this time, not tolerating any movement or touch. Patient also has an ortho consult ordered. Will check back at a later time
[2024-09-06] MEDS: HYDROcodone/acetaminophen (*CRX) 10-325 MG TABLET 1 TAB PO ×2 (09:46→21:26)
--- NOTE | 2024-09-06 09:49 | P.PNIM_ITS ---
Progress Note: A&P Assessment and Plan (1) Frequent falls: Code(s): R29.6 - Repeated falls Status: Acute (2) Left shoulder pain: Code(s): M25.512 - Pain in left shoulder Status: Acute (3) Chronic anticoagulation: Code(s): Z79.01 - long term care social worker (current) use of anticoagulants Status: Acute (4) Atrial fibrillation: Qualifiers: Atrial fibrillation type: unspecified Qualified Code(s): I48.91 - Unspecified atrial fibrillation Code(s): I48.91 - Unspecified atrial fibrillation Status: Chronic (5) Essential hypertension: Code(s): I10 - Essential (primary) hypertension Status: Chronic (6) Type 2 diabetes mellitus: Qualifiers: Diabetes mellitus complication status: without complication Diabetes mellitus care home insulin use: without remote computer terminal operator use Qualified Code(s): E11.9 - Type 2 diabetes mellitus without complications Code(s): E11.9 - Type 2 diabetes mellitus without complications Status: Acute Plan Left shoulder/hip pain -status post minimally invasive lumbar decompression at L3-L4 and L4-L5 earlier this month -left knee x-ray unremarkable -left shoulder x-ray: High riding humeral head suggests underlying rotator cuff tear. No acute fracture or dislocation. -left hip x-ray no significant abnormality -rib x-ray no acute displaced left-sided rib fracture -continue PT OT -multimodal pain management -case management on board DVT -possibly be provoked by sedentary lifestyle -Venous Doppler Deep venous thrombosis of the right posterior tibial and peroneal veins. Unable to evaluate the left posterior tibial and peroneal veins secondary to patient intolerance. -Xarelto 15 mg reduced due to recent fall which resulted in bruising -monitor H&H and platelets -no evidence of cancer -hemodynamically stable -will monitor vitals Subjective Date/time seen: 09/06/24 09:49 Interval history: Interval history: 84-year-old male with paroxysmal atrial fibrillation on chronic anticoagulation, coronary artery disease, hypertension, hyperlipidemia, type 2 diabetes mellitus, chronic obstructive pulmonary disease, untreated obstructive sleep apnea, benign prostatic hyperplasia, chronic kidney disease, arthritis, and lumbar spinal stenosis with neurogenic claudication status post minimally invasive lumbar decompression at L3-L4 and L4-L5 earlier this month who presented to the emergency department from home for evaluation of left shoulder and hip pain after fall. He was walking down the stairs yesterday morning and when he got to the last step his legs gave out and he fell down onto his left side. He has had significant pain in his left shoulder and to lesser extent in the left hip since that time. He has had increasing pain in the shoulder since that time, to the point where he can barely even lifted up due to excruciating pain, and came in for evaluation. There was no head trauma or loss of consciousness in the fall and he denies antecedent symptoms prior to the fall. He voices frustration as he has been participating in PT since his surgery and he feels as though he is not improving. In the ED: Vital signs were stable on arrival. CTA of the head and cervical spine were without acute findings. X- rays of the left hip, pelvis, shoulder, and knee were also without acute findings. Physical therapy evaluated the patient in the ED and he did not do well. Care coordination was then contacted to see if he could be placed in a rehab facility however he requires preauthorization by his insurance and is being admitted in this setting.Venous Doppler ultrasounds of the lower extremities bilaterally ordered on admission resulted positive for DVT of right posterior tibial and peroneal veins. The patient is adamant he wants to continue Xarelto to treat this in spite of his bruising on admission as well as his fall risk and restarted at reduced dose of 15 mg p.o. q.h.s.. Review of Systems Review of Systems: 12 systems were reviewed and are negativ e except for as per HPI. Exam Narrative: General: Chronically ill-appearing male in the semi-Byrnes position in bed in no acute distress. Weight: 92.8 kg. BMI: 28.5. HEENT: PERRL, EOMI. Sclera anicteric. Oral mucosa moist. Neck: Supple. Respiratory: Respirations are nonlabored he is speaking in full sentences. Cardiovascular: Regular rate and rhythm with S1-S2. Systolic murmur at the left lower sternal border and apex. Gastrointestinal: Abdomen is soft, obese, nontender, and nondistended with positive bowel sounds. Skin: Warm and dry. Scattered bruising on the upper and lower extremities. There is a bruise with underlying hematoma on the left medial calf. Skin tears on the arms, worse on the left. Extremities: No cyanosis or clubbing. Pitting edema of the lower legs. Peripheral pulses palpable. Neurological: Alert. Cranial nerves 2-12 are grossly intact. No gross focal deficits to casual conversation. Musculoskeletal: His bit tender to palpation over the left flank. He is exquisitely tender to even light palpation over the anterior left shoulder and is hesitant to move that arm due to pain. Psychiatric: Pleasant and cooperative with appropriate mood and affect. Objective Data Vital Signs Vital Signs: Vital Signs - 24 hr 09/05/24 10:20 09/05/24 11:40 09/05/24 11:50 Temperature Pulse Rate 65 Respiratory Rate 18 Blood Pressure 123/63 Pulse Oximetry 97 Oxygen Delivery Room Air Room Air Fraction of Inspired Oxygen 09/05/24 12:53 09/05/24 14:00 09/05/24 14:48 Temperature 98 F Pulse Rate 83 79 Respiratory Rate 20 18 Blood Pressure 138/91 H 140/78 Pulse Oximetry 100 98 Oxygen Delivery Room Air Fraction of Inspired Oxygen 09/05/24 21:22 09/06/24 05:45 09/06/24 07:29 Temperature 97.8 F 97.3 F L Pulse Rate 89 90 Respiratory Rate 14 14 Blood Pressure 149/80 H 155/72 H Pulse Oximetry 100 98 96 Oxygen Delivery Room Air Fraction of Inspired Oxygen 21 09/06/24 07:29 Temperature Pulse Rate 98 Respiratory Rate 18 Blood Pressure Pulse Oximetry Oxygen Delivery Fraction of Inspired Oxygen Intake/Output Intake/Output: Intake & Output 09/03/24 09/04/24 09/05/24 09/06/24 23:59 23:59 23:59 23:59 Intake Total 790 620 Output Total 500 Balance 790 120 Meds/Results Medications: Active Medications Generic Name Dose Route Start Last Admin Trade Name Freq PRN Reason Stop Dose Admin Acetaminophen 650 mg 09/05/24 13:33 09/05/24 19:44 Acetaminophen 325 Mg Tablet PO 650 mg Q6H PRN Administration Mild Pain (1-3) or Fever Hydrocodone Bitart/Acetaminophen 1 tab 09/06/24 09:17 Hydrocodone/Acetaminophen (*Crx) 5-325 Mg Tablet PO Q4HR PRN Pain Rated 4-6 Hydrocodone Bitart/Acetaminophen 1 tab 09/06/24 09:16 09/06/24 09:46 Hydrocodone/Acetaminophen (*Crx) 10-325 Mg Tablet PO 1 tab Q4H PRN Administration Pain Rated 7-10 Albuterol 2 puff 09/05/24 21:16 Albuterol Sulfate (*Sp) Aerosol 1 Puff INHALATION Q4HRT PRN shortness of breath or wheezing Atorvastatin Calcium 40 mg 09/05/24 21:35 09/05/24 21:53 Atorvastatin 40 Mg Tablet PO 40 mg QHS MELISSA Administration Clopidogrel Bisulfate 75 mg 09/06/24 09:00 09/06/24 08:32 Clopidogrel Bisulfate 75 Mg Tablet BY MOUTH 75 mg DAILY MELISSA Administration Dextrose 12.5 gm 09/05/24 13:34 Dextrose 50% 25 Gm/50 Ml Syringe IV PUSH PRN PRN Hypoglycemia Protocol Diltiazem HCl 180 mg 09/06/24 09:00 09/06/24 08:32 Diltiazem Hcl Cd 180 Mg Cap.24hr PO 180 mg DAILY MELISSA Administration Ferrous Sulfate 325 mg 09/06/24 09:00 09/06/24 08:33 Ferrous Sulfate [address] PO 325 mg DAILY MELISSA Administration Finasteride 5 mg 09/06/24 09:00 09/06/24 08:32 Finasteride 5 Mg Tablet BY MOUTH 5 mg DAILY MELISSA Administration Fish Oil 1 gm 09/06/24 09:00 09/06/24 08:33 [place] 3 Polyunsat Fatty Acids 1 Gm Cap PO 1 gm QAM MELISSA Administration Glucagon 1 mg 09/05/24 13:34 Glucagon For Inj 1 Mg Vial IM PRN PRN Hypoglycemia Protocol Glucose 15 gm 09/05/24 13:34 Glucose Oral Gel 15 Gm Of Glucse In 37.5 Gm Tube PO PRN PRN Hypoglycemia Protocol Dextrose 1,000 mls @ 100 mls/hr 09/05/24 13:34 Dextrose 5% 1,000 Ml IVPB PRN PRN Hypoglycemia Protocol Insulin Aspart 2 - 5 units 09/05/24 17:00 09/05/24 16:57 Insulin Aspart (*Bkc) 100 Units/Ml SUB-Q Not Given TIDWM [facility] Protocol Insulin Aspart 1 - 2 units 09/05/24 21:00 09/05/24 21:40 Insulin Aspart (*Bkc) 100 Units/Ml SUB-Q Not Given HS [facility] Protocol Multivitamins/Minerals 1 tab 09/06/24 09:00 09/06/24 08:32 Multivitamins /C Lutein (Centrum Silver) Tablet *Bkc PO 1 tab DAILY MELISSA Administration Oxybutynin Chloride 15 mg 09/05/24 21:40 09/05/24 21:52 Oxybutynin Chloride Xl 5 Mg Tab.Er.24 PO 15 mg HS MELISSA Administration Rivaroxaban 15 mg 09/06/24 03:50 09/06/24 03:56 Rivaroxaban 15 Mg Tablet PO 15 mg DAILY@1700 MELISSA Administration Fluticasone/Salmeterol 2 puff 09/05/24 21:40 09/06/24 07:29 Fluticasone/Salmeterol 115-21 Mcg Inhaler 1 Puff INHALATION 2 puff Q12HRT MELISSA Administration Vitamin B Complex 1 cap 09/06/24 09:00 09/06/24 08:33 Vitamin B Complex Capsule PO Not Given DAILY [facility] Radiology Results: ITS Impressions Cervical Spine CT 09/05/24 08:05 Impression: No fracture or subluxation of the cervical spine. Advanced degenerative spondylosis, as above. Partially imaged left pleural effusion. Head CT 09/05/24 08:08 Impression: No acute abnormality. Stable focal hyperdensity in the right occipital lobe, suggestive of small cavernoma. Atrophy and chronic white matter changes, as above. Hip/Pelvis X-Ray 09/05/24 08:25 Impression: No significant abnormality is seen. Shoulder X-Ray 09/05/24 08:25 Impression: High riding humeral head suggests underlying rotator cuff tear. No acute fracture or dislocation. Degenerative change, as above. Knee X-Ray 09/05/24 08:26 Impression: Unremarkable left knee radiographs. Chest X-Ray 09/05/24 13:28 Impression: Clear lungs. Ribs X-Ray 09/05/24 21:51 IMPRESSION: No acute displaced left sided rib fracture, as detailed above. Venous Doppler Study 09/05/24 23:44 IMPRESSION: Deep venous thrombosis of the right posterior tibial and peroneal veins. Unable to evaluate the left posterior tibial and peroneal veins secondary to patient intolerance. Labs Labs: Laboratory Results - last 24 hr 09/05/24 09/05/24 09/05/24 14:40 16:44 19:48 WBC 11.8 H RBC 3.94 L Hgb 11.7 L Hct 38.3 L MCV 97.2 MCH 29.7 MCHC 30.5 L RDW 14.4 Plt Count 327 MPV 9.1 Immature Gran % (Auto) 0.4 Neut % (Auto) 68.3 Lymph % (Auto) 21.9 [place] % (Auto) 7.0 Eos % (Auto) 1.9 Baso % (Auto) 0.5 Lymph # (Auto) 2.58 [place] # (Auto) 0.8 H Eos # (Auto) 0.2 Baso # (Auto) 0.1 Abs Immat Gran (auto) 0.05 H Absolute Neuts (auto) 8.0 H Absolute Nucleated RBC 0.000 Nucleated RBC % 0.0 Sodium 138 Potassium 4.8 Chloride 107 Carbon Dioxide 24 Anion Gap 7 BUN 23 H Creatinine 1.10 Estim Creat Clear Calc 48 Estimated GFR > 60 Glucose 119 H POC Capillary Glucose 127 H 187 H Calcium 8.5 Total Bilirubin 0.6 AST 22 ALT 18 Alkaline Phosphatase 37 L Total Protein 6.0 L Albumin 3.3 L Vitamin B12 > 1000.0 H Folate > 20.0 H 09/06/24 07:40 WBC RBC Hgb Hct MCV MCH MCHC RDW Plt Count MPV Immature Gran % (Auto) Neut % (Auto) Lymph % (Auto) [place] % (Auto) Eos % (Auto) Baso % (Auto) Lymph # (Auto) [place] # (Auto) Eos # (Auto) Baso # (Auto) Abs Immat Gran (auto) Absolute Neuts (auto) Absolute Nucleated RBC Nucleated RBC % Sodium Potassium Chloride Carbon Dioxide Anion Gap BUN Creatinine Estim Creat Clear Calc Estimated GFR Glucose POC Capillary Glucose 138 H Calcium Total Bilirubin AST ALT Alkaline Phosphatase Total Protein Albumin Vitamin B12 Folate Quality VTE Prophylaxis VTE prophylaxis: mechanical ordered Hospitalist MIPS Advance Care Plan I have confirmed that the patient's Advanced Care Plan is present, code status is documented, or surrogate decision maker is listed in patient medical record.: Yes Medication Reconciliation I have utilized all available resources to obtain, update and review the patients current medications (includes all prescriptions, OTC, herbals, cannabis, and nutritional supplements).: Yes
--- NOTE | 2024-09-06 10:14 | PCPTNOTE ---
The patient treatment was not able to be completed on 09/06/2024. Per RN advised not to see patient this date, patient in too much pain and ortho consult in. Will plan to continue treatment per plan of care.
[2024-09-06 11:28] LABS: Glucose Point of Care 166 mg/dl (65-105)
[2024-09-06 13:45] VITALS: BP 136/65; PULSE 91; RESP 20; TEMP 36.2; O2SAT 99
--- NOTE | 2024-09-06 16:21 | P.CONOP_ITS ---
Assessment and Plan Assessment and plan (1) Left shoulder pain: Qualifiers: Chronicity: acute Qualified Code(s): M25.512 - Pain in left shoulder Code(s): M25.512 - Pain in left shoulder Status: Acute Assessment and Plan: History, exam and radiographs reviewed. Radiographs the left shoulder reveal proximal migration of the humeral head consistent with rotator cuff arthropathy. Do not suspect this is a new finding. No obvious evidence of fracture of the left shoulder. Swelling notable. No current ecchymosis. Significant tenderness to touch. Discussed condition, nature, etiology and course of natural history. Conservative treatment options reviewed as well as the risks benefits of each. Recommended initiating treatment with a topical pain patch and ice. Patient should begin gentle range of motion exercises and pendulum swings. PT and OT with weight-bearing as tolerated. If continued inability to tolerate PT and OT, further imaging may be warranted with a CT scan. (2) Primary osteoarthritis involving multiple joints: Code(s): M15.0 - Primary generalized (osteo)arthritis Status: Acute Assessment and Plan: Radiographs the left hip reveal no evidence of fracture, dislocation or acute abnormalities. Moderate swelling of the left hip noted. Tenderness to touch. Denies groin pain. Mainly reports lateral-sided pain. Recommend PT and OT. Out of bed to chair. Pain control. Ice. We will continue to monitor. If continued inability to tolerate PT and OT, further imaging may be warranted. (3) Fall: Code(s): W19.XXXA - Unspecified fall, initial encounter Status: Acute Assessment and Plan: PT and OT for evaluation. Possible rehab placement. Plan Reviewed history, exam, radiographs and current labs with attending MD and covering surgeon, Dr. Martel, who agrees with current plan as indicated above. No further recommendations from Dr. aMrtel at this time. History of Present Illness HPI Consult date: 09/06/24 Chief complaint: FALLS, UNABLE TO AMBULATE WITHOUT PATTERN CHECKER, Narrative: Orthopedic consult for this 84-year-old male with complaints of left shoulder pain status post fall at home. Per the patient and medical record, he fell down the stairs yesterday morning which resulted in significant left shoulder and hip pain. He denies consciousness. to note, patient recently underwent a lumbar decompression at L3-L4 and L4-L5 and has noted increasing weakness since that time. Radiographs of the left shoulder in the emergency room revealed no evidence of fracture, dislocation or acute abnormalities. Chronic degenerative changes and evidence of proximal migration of the humeral head consistent with rotator cuff arthropathy noted. Radiographs of the left hip negative for fracture. Review of Systems 2 Review of Systems: All systems reviewed & are unremarkable except as noted in HPI and below PMFSH Past Medical History Medical History Chronic kidney disease, stage 3 Chronic anticoagulation Cerebral cavernoma Obstructive sleep apnea intolerant to CPAP Lumbosacral stenosis with neurogenic claudication with epidural steroid injection L4-L5 December 2022 Mild cognitive impairment COPD with asthma Lumbosacral radiculopathy Claudication of both lower extremities Postlaminectomy syndrome Lumbosacral spondylosis Long COVID Atrial fibrillation Benign non-nodular prostatic hyperplasia without lower urinary tract symptoms Essential hypertension 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 Surgical History Surgical History History of lumbar discectomy (08/2024) minimally invasive at L3-L4 and L4-L5 History of lumbar fusion History of cardiac catheterization (03/2023) multivessel coronary disease to 80% stenosis of the proximal LAD 70% stenosis midportion of LAD very small diagonal branch, proximal and mid left circ have luminal irregularities 90% long stenosis left circumflex, small caliber obtuse marginal branch with mild diffuse disease obtuse marginal 2 has a moderate stenosis of the midportion right coronary artery is dominant vessel with 90% stenosis of the midportion and mid RPDA has 2 tandem stenosis is of 60-70% the patient was referred for CV surgery however the patient then underwent staged procedure at [facility] with PCI and stent to mid distal left circ and in September 2023 he had a PCI to the mid RCA History of cataract surgery Family History Family History Sibling Patient's sister is in good health Patient's brother is in good health Father Heart disease Acute myocardial infarction Telangiectasia Kxfna-Ryfdv-Cvics disease Angiodysplasia AVM (arteriovenous malformation) Mother Acute myocardial infarction Social History Social History Social History: Surrogate medical decision maker: Genoveva [place], spouse. Code status: DO NOT RESUSCITATE. Smoking packs per day: 0.5 Smoking cigarettes per day: 10.0 Years smoked: 2 Smoking pack-years: 1.00 Smoking status: Former smoker Second hand tobacco smoke exposure: No Alcohol intake: never Substance use: never Substance use type: does not use Do You Feel Safe in your Home?: Yes Lack of Transportation: No Lack of Food: Never True Current Housing: I Have Housing Concerned About Future Housing: No Difficulty Paying Gas/Electric Bills: No Difficulty Paying for Meds: No Currently Unemployed: No Education: Grade School Difficulty w/ Childcare or Family Care: No Living arrangements: with family Additional living arrangements comments: Lives with in [place]. 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 Spiritual care concerns: No Meds Home Medications and Allergies Home Medications ?Medication ?Instructions ?Recorded ?Confirmed ?Type lancets (Lancets, Super Thin) #100 ea 01/30/20 09/05/24 Rx blood sugar diagnostic (Contour #100 ea 03/19/20 09/05/24 Rx Next Test Strips) multivit with minerals-iron 18 1 tablet PO DAILY 12/10/21 09/05/24 History mg-folic ac 400 mcg-vit K 25 mcg tablet (Adults Multivitamin) vitamin B complex (B 1 tablet PO DAILY 12/10/21 09/05/24 History Complex-Vitamin B12 tablet) atorvastatin 40 mg tablet 40 mg PO QPM 10/21/23 09/05/24 History finasteride 5 mg tablet See Rx Instructions .Route 01/02/24 09/05/24 Rx .COMPLEX #90 tabs omega-3 fatty acids 1,000 mg PO DAILY 04/09/24 09/05/24 History diltiazem HCl 180 mg 180 mg PO Q24H 05/02/24 09/05/24 History capsule,extended release 24 hr fluticasone 250 mcg-salmeterol 50 See Rx Instructions .Route 05/25/24 09/05/24 Rx mcg/dose blistr powdr for .COMPLEX #180 ea inhalation (Wixela Inhub) clopidogrel 75 mg tablet See Rx Instructions .Route 05/28/24 09/05/24 Rx .COMPLEX #90 tabs oxybutynin chloride 15 mg 15 mg PO HS #90 tabs 05/28/24 09/05/24 Rx tablet,extended release 24 hr metformin 1,000 mg tablet 1,000 mg PO DAILY #180 tabs 07/13/24 09/05/24 Rx albuterol sulfate 90 mcg/actuation 2 puff inhalation Q4H PRN 07/19/24 09/05/24 Rx aerosol inhaler (ProAir HFA) shortness of breath or wheezing #8.5 grams ferrous sulfate 325 mg (65 mg 325 mg PO DAILY #90 tabs 07/19/24 09/05/24 Rx iron) tablet rivaroxaban 20 mg tablet (Xarelto) 20 mg PO QPM #30 tabs 08/15/24 09/05/24 Rx Allergies Allergy/AdvReac Type Severity Reaction Status Date / Time Opioids - Morphine Analogues AdvReac Intermediate Nausea and Verified 09/05/24 18:07 Vomiting Vital Signs Vital Signs - 24 hr 09/05/24 21:22 09/06/24 05:45 09/06/24 07:29 Temperature 36.6 C 36.3 C L Pulse Rate 89 90 Respiratory Rate 14 14 Blood Pressure 149/80 H 155/72 H Pulse Oximetry 100 98 96 Oxygen Delivery Room Air Fraction of Inspired Oxygen 21 09/06/24 07:29 09/06/24 13:45 Temperature 36.2 C L Pulse Rate 98 91 Respiratory Rate 18 20 Blood Pressure 136/65 Pulse Oximetry 99 Oxygen Delivery Fraction of Inspired Oxygen Exam 2 Const: General: comfortable and no acute distress HENMT: Mouth: Yes moist mucous membranes Eyes: General: appearance normal, both eyes and all related structures Neck: Neck: supple and no JVD Resp: Effort & Inspection: normal respiratory effort Cardio: Rate: regular rate Rhythm: regular rhythm GI: Inspection: non-distended GI Palp: Yes Soft to palpation and No Tenderness to palpation present (GI) Neuro: General: gait normal Cognition (Neuro): normal cognition Speech: normal speech Extrem: Left upper extremity: shoulder/upper arm tenderness of the clavicle and of the proximal humerus, swelling of the proximal humerus, axillary nerve sensory function normal and abnormal ROM ( Range of motion exam limited due to patient's pain) held in an abnormal fashion in ADduction Left lower extremity: knee Details: normal to inspection, lower leg Details: tenderness and pitting edema Details: 2+; no abrasions, no lacerations and no ecchymosis, ankle Details: normal to inspection and foot Details: normal capillary refill and normal to inspection Psych: Mental Status: mental status grossly normal Affect: normal affect Results Labs 09/05/24 14:40 09/05/24 14:40 Labs: Abnormal lab results 09/05/24 09/05/24 09/05/24 Range/Units 14:40 16:44 19:48 POC Capillary Glucose 127 H 187 H (65-105) mg/dl Vitamin B12 > 1000.0 H (239-931) pg/mL Folate > 20.0 H (2.76->20) ng/mL 09/06/24 09/06/24 Range/Units 07:40 11:20 POC Capillary Glucose 138 H 166 H (65-105) mg/dl Vitamin B12 (239-931) pg/mL Folate (2.76->20) ng/mL H & H 09/05/24 Range/Units 14:40 Hgb 11.7 L (14.0-18.0) g/dL Hct 38.3 L (42.0-52.0) % All other labs normal.
[2024-09-06 17:07] LABS: Glucose Point of Care 188 mg/dl (65-105)
[2024-09-06 20:09] VITALS: O2SAT 96
[2024-09-06 20:45] LABS: Glucose Point of Care 187 mg/dl (65-105)
[2024-09-06] MEDS: ATORVASTATIN 40 MG TABLET PO (21:22)
[2024-09-06] MEDS: oxyBUTYnin CHLORIDE XL 5 MG TAB.ER.24 15 MG PO (21:22)
[2024-09-06 22:00] VITALS: BP 130/72; PULSE 79; RESP 14; TEMP 36.6; O2SAT 95
[2024-09-07] MEDS: HYDROcodone/acetaminophen (*CRX) 10-325 MG TABLET 1 TAB PO ×4 (03:08→21:44)
[2024-09-07 05:46] VITALS: BP 137/88; PULSE 82; RESP 14; TEMP 36.3; O2SAT 98
[2024-09-07 06:25] LABS: Hematocrit 34.7 % (42.0-52.0); Hemoglobin 10.5 g/dL (14.0-18.0); Mean Corpuscular HGB Conc 30.3 g/dl (32-36); Mean Corpuscular Hemoglobin 29.6 pg (26-34); Mean Corpuscular Volume 97.7 fl (80-100); Mean Platelet Volume 9.4 fl (7.4-10.4); Platelet Count Result 307 k/mm3 (150-375); Red Blood Count 3.55 M/mm3 (4.6-6.20); Red Cell Distribution Width 14.4 % (11.5-14.5); White Blood Count 12.8 K/mm3 (4.5-10.0)
[2024-09-07 06:33] LABS: Alanine Aminotransferase 13 U/L (6-50); Anion Gap 9 mmol/L (4-12); Bilirubin,Total 0.8 mg/dL (0.2-1.3); Blood Urea Nitrogen 22 mg/dL (9-20); Calcium 8.4 mg/dL (8.4-10.2); Carbon Dioxide 21 mmol/L (22-30); Chloride 104 mmol/L (98-107); Estimated CRCL calculation 47 ml/min; Estimated Glomerular Filt Rate > 60; Glucose 132 mg/dL (65-110); Sodium 134 mmol/L (137-145)
[2024-09-07 06:40] LABS: Alkaline Phosphatase 39 U/L (38-126); Aspartate Amino Transferase 14 U/L (17-59); Potassium 4.7 mmol/L (3.4-5.0)
[2024-09-07 07:46] LABS: Glucose Point of Care 138 mg/dl (65-105)
--- NOTE | 2024-09-07 08:02 | P.PNIM_ITS ---
Progress Note: A&P Assessment and Plan (1) Frequent falls: Code(s): R29.6 - Repeated falls Status: Acute (2) Left shoulder pain: Qualifiers: Chronicity: acute Qualified Code(s): M25.512 - Pain in left shoulder Code(s): M25.512 - Pain in left shoulder Status: Acute (3) Chronic anticoagulation: Code(s): Z79.01 - [facility] (current) use of anticoagulants Status: Acute (4) Atrial fibrillation: Qualifiers: Atrial fibrillation type: unspecified Qualified Code(s): I48.91 - Unspecified atrial fibrillation Code(s): I48.91 - Unspecified atrial fibrillation Status: Chronic (5) Essential hypertension: Code(s): I10 - Essential (primary) hypertension Status: Chronic (6) Type 2 diabetes mellitus: Qualifiers: Diabetes mellitus complication status: without complication Diabetes mellitus [facility] insulin use: without [facility] use Qualified Code(s): E11.9 - Type 2 diabetes mellitus without complications Code(s): E11.9 - Type 2 diabetes mellitus without complications Status: Acute Plan Left shoulder/hip pain -status post minimally invasive lumbar decompression at L3-L4 and L4-L5 earlier this month -left knee x-ray unremarkable -left shoulder x-ray: High riding humeral head suggests underlying rotator cuff tear. No acute fracture or dislocation. -left hip x-ray no significant abnormality -rib x-ray no acute displaced left-sided rib fracture -continue PT OT -multimodal pain management -Ortho on board -case management on board CT chest/abdomen/pelvis:Soft tissue hematoma adjacent to the left posterior superior iliac spine likely the cause of patient's left hip pain without underlying fracture. Significant glenohumeral and acromioclavicular joint effusion without underlying fracture deformity of the left shoulder, possibly the cause of patient's left shoulder discomfort. High riding humeral heads bilaterally suggesting bilateral rotator cuff injury. Otherwise: No cross-sectional imaging evidence to suggest the presence of acute traumatic injury within the chest, abdomen or pelvis. Specifically, no hollow or solid organ injury. In addition: Multiple pulmonary nodules detected bilaterally for which follow-up as per Fleischner guidelines is recommended (repeat CT in 3 months, PET/CT, or tissue sampling). DVT -possibly be provoked by sedentary lifestyle -Venous Doppler Deep venous thrombosis of the right posterior tibial and peroneal veins. Unable to evaluate the left posterior tibial and peroneal veins secondary to patient intolerance. -Xarelto 15 mg reduced due to recent fall which resulted in bruising -monitor H&H and platelets -no evidence of cancer -hemodynamically stable -will monitor vitals Subjective Date/time seen: 09/07/24 08:02 Interval history: Interval history: 84-year-old male with paroxysmal atrial fibrillation on chronic anticoagulation, coronary artery disease, hypertension, hyperlipidemia, type 2 diabetes mellitus, chronic obstructive pulmonary disease, untreated obstructive sleep apnea, benign prostatic hyperplasia, chronic kidney disease, arthritis, and lumbar spinal stenosis with neurogenic claudication status post minimally invasive lumbar decompression at L3-L4 and L4-L5 earlier this month who presented to the emergency department from home for evaluation of left shoulder and hip pain after fall. He was walking down the stairs yesterday morning and when he got to the last step his legs gave out and he fell down onto his left side. He has had significant pain in his left shoulder and to lesser extent in the left hip since that time. He has had increasing pain in the shoulder since that time, to the point where he can barely even lifted up due to excruciating pain, and came in for evaluation. There was no head trauma or loss of consciousness in the fall and he denies antecedent symptoms prior to the fall. He voices frustration as he has been participating in PT since his surgery and he feels as though he is not improving. In the ED: Vital signs were stable on arrival. CTA of the head and cervical spine were without acute findings. X- rays of the left hip, pelvis, shoulder, and knee were also without acute findings. Physical therapy evaluated the patient in the ED and he did not do we ll. Care coordination was then contacted to see if he could be placed in a rehab facility however he requires preauthorization by his insurance and is being admitted in this setting.Venous Doppler ultrasounds of the lower extremities bilaterally ordered on admission resulted positive for DVT of right posterior tibial and peroneal veins. The patient is adamant he wants to continue Xarelto to treat this in spite of his bruising on admission as well as his fall risk and restarted at reduced dose of 15 mg p.o. q.h.s.. 09/07: Reviewed CT pelvis/hip/knee. Evidence ofSoft tissue hematoma adjacent to the left posterior superior iliac spine likely the cause of patient's left hip pain without underlying fracture. Discussed with family again in regards to continuing anticoagulation. Patient wants to continue the anticoagulation. His was present at the bedside. Patient has difficulty ambulating. Review of Systems Review of Systems: 12 systems were reviewed and are negativ e except for as per HPI. Exam Narrative: General: Chronically ill-appearing male in the semi-Byrnes position in bed in no acute distress. Weight: 92.8 kg. BMI: 28.5. HEENT: PERRL, EOMI. Sclera anicteric. Oral mucosa moist. Neck: Supple. Respiratory: Respirations are nonlabored he is speaking in full sentences. Cardiovascular: Regular rate and rhythm with S1-S2. Systolic murmur at the left lower sternal border and apex. Gastrointestinal: Abdomen is soft, obese, nontender, and nondistended with positive bowel sounds. Skin: Warm and dry. Scattered bruising on the upper and lower extremities. There is a bruise with underlying hematoma on the left medial calf. Skin tears on the arms, worse on the left. Extremities: No cyanosis or clubbing. Pitting edema of the lower legs. Peripheral pulses palpable. Neurological: Alert. Cranial nerves 2-12 are grossly intact. No gross focal deficits to casual conversation. Musculoskeletal: His bit tender to palpation over the left flank. He is exquisitely tender to even light palpation over the anterior left shoulder and is hesitant to move that arm due to pain. Psychiatric: Pleasant and cooperative with appropriate mood and affect. Objective Data Vital Signs Vital Signs: Vital Signs - 24 hr 09/06/24 13:45 09/06/24 20:09 09/06/24 22:00 Temperature 97.2 F L 97.9 F Pulse Rate 91 79 Respiratory Rate 20 14 Blood Pressure 136/65 130/72 Pulse Oximetry 99 96 95 Oxygen Delivery Room Air 09/07/24 05:46 Temperature 97.4 F L Pulse Rate 82 Respiratory Rate 14 Blood Pressure 137/88 Pulse Oximetry 98 Oxygen Delivery Intake/Output Intake/Output: Intake & Output 09/04/24 09/05/24 09/06/24 09/07/24 23:59 23:59 23:59 23:59 Intake Total 790 920 200 Output Total 1000 500 Balance 790 -80 -300 Meds/Results Medications: Active Medications Generic Name Dose Route Start Last Admin Trade Name Freq PRN Reason Stop Dose Admin Acetaminophen 650 mg 09/05/24 13:33 09/05/24 19:44 Acetaminophen 325 Mg Tablet PO 650 mg Q6H PRN Administration Mild Pain (1-3) or Fever Hydrocodone Bitart/Acetaminophen 1 tab 09/06/24 09:17 09/06/24 17:37 Hydrocodone/Acetaminophen (*Crx) 5-325 Mg Tablet PO 1 tab Q4HR PRN Administration Pain Rated 4-6 Hydrocodone Bitart/Acetaminophen 1 tab 09/06/24 09:16 09/07/24 03:08 Hydrocodone/Acetaminophen (*Crx) 10-325 Mg Tablet PO 1 tab Q4H PRN Administration Pain Rated 7-10 Albuterol 2 puff 09/05/24 21:16 Albuterol Sulfate (*Sp) Aerosol 1 Puff INHALATION Q4HRT PRN shortness of breath or wheezing Atorvastatin Calcium 40 mg 09/05/24 21:35 09/06/24 21:22 Atorvastatin 40 Mg Tablet PO 40 mg QHS MELISSA Administration Clopidogrel Bisulfate 75 mg 09/06/24 09:00 09/06/24 08:32 Clopidogrel Bisulfate 75 Mg Tablet BY MOUTH 75 mg DAILY MELISSA Administration Dextrose 12.5 gm 09/05/24 13:34 Dextrose 50% 25 Gm/50 Ml Syringe IV PUSH PRN PRN Hypoglycemia Protocol Diltiazem HCl 180 mg 09/06/24 09:00 09/06/24 08:32 Diltiazem Hcl Cd 180 Mg Cap.24hr PO 180 mg DAILY MELISSA Administration Ferrous Sulfate 325 mg 09/06/24 09:00 09/06/24 08:33 Ferrous Sulfate [address] PO 325 mg DAILY MELISSA Administration Finasteride 5 mg 09/06/24 09:00 09/06/24 08:32 Finasteride 5 Mg Tablet BY MOUTH 5 mg DAILY MELISSA Administration Fish Oil 1 gm 09/06/24 09:00 09/06/24 08:33 [place] 3 Polyunsat Fatty Acids 1 Gm Cap PO 1 gm QAM MELISSA Administration Glucagon 1 mg 09/05/24 13:34 Glucagon For Inj 1 Mg Vial IM PRN PRN Hypoglycemia Protocol Glucose 15 gm 09/05/24 13:34 Glucose Oral Gel 15 Gm Of Glucse In 37.5 Gm Tube PO PRN PRN Hypoglycemia Protocol Dextrose 1,000 mls @ 100 mls/hr 09/05/24 13:34 Dextrose 5% 1,000 Ml IVPB PRN PRN Hypoglycemia Protocol Insulin Aspart 2 - 5 units 09/05/24 17:00 09/06/24 20:27 Insulin Aspart (*Bkc) 100 Units/Ml SUB-Q Not Given TIDWM MELISSA Protocol Insulin Aspart 1 - 2 units 09/05/24 21:00 09/06/24 21:19 Insulin Aspart (*Bkc) 100 Units/Ml SUB-Q Not Given HS MELISSA Protocol Lidocaine 1 patch 09/07/24 09:00 Lidocaine 5% Patch TRANSDERM DAILY MELISSA Multivitamins/Minerals 1 tab 09/06/24 09:00 09/06/24 08:32 Multivitamins /C Lutein (Centrum Silver) Tablet *Bkc PO 1 tab DAILY MELISSA Administration Oxybutynin Chloride 15 mg 09/05/24 21:40 09/06/24 21:22 Oxybutynin Chloride Xl 5 Mg Tab.Er.24 PO 15 mg HS MELISSA Administration Rivaroxaban 15 mg 09/06/24 03:50 09/06/24 17:37 Rivaroxaban 15 Mg Tablet PO 15 mg DAILY@1700 MELISSA Administration Fluticasone/Salmeterol 2 puff 09/05/24 21:40 09/06/24 20:08 Fluticasone/Salmeterol 115-21 Mcg Inhaler 1 Puff INHALATION 2 puff Q12HRT MELISSA Administration Vitamin B Complex 1 cap 09/06/24 09:00 09/06/24 08:33 Vitamin B Complex Capsule PO Not Given DAILY ON LICENSE OF [facility] Radiology Results: ITS Impressions Cervical Spine CT 09/05/24 08:05 Impression: No fracture or subluxation of the cervical spine. Advanced degenerative spondylosis, as above. Partially imaged left pleural effusion. Head CT 09/05/24 08:08 Impression: No acute abnormality. Stable focal hyperdensity in the right occipital lobe, suggestive of small cavernoma. Atrophy and chronic white matter changes, as above. Hip/Pelvis X-Ray 09/05/24 08:25 Impression: No significant abnormality is seen. Shoulder X-Ray 09/05/24 08:25 Impression: High riding humeral head suggests underlying rotator cuff tear. No acute fracture or dislocation. Degenerative change, as above. Knee X-Ray 09/05/24 08:26 Impression: Unremarkable left knee radiographs. Chest X-Ray 09/05/24 13:28 Impression: Clear lungs. Ribs X-Ray 09/05/24 21:51 IMPRESSION: No acute displaced left sided rib fracture, as detailed above. Venous Doppler Study 09/05/24 23:44 IMPRESSION: Deep venous thrombosis of the right posterior tibial and peroneal veins. Unable to evaluate the left posterior tibial and peroneal veins secondary to patient intolerance. Labs Labs: Laboratory Results - last 24 hr 09/06/24 09/06/24 09/06/24 11:20 16:57 19:57 WBC RBC Hgb Hct MCV MCH MCHC RDW Plt Count MPV Sodium Potassium Chloride Carbon Dioxide Anion Gap BUN Creatinine Estim Creat Clear Calc Estimated GFR Glucose POC Capillary Glucose 166 H 188 H 187 H Calcium Total Bilirubin AST ALT Alkaline Phosphatase Total Protein Albumin 09/07/24 09/07/24 05:31 07:41 WBC 12.8 H RBC 3.55 L Hgb 10.5 L Hct 34.7 L MCV 97.7 MCH 29.6 MCHC 30.3 L RDW 14.4 Plt Count 307 MPV 9.4 Sodium 134 L Potassium 4.7 Chloride 104 Carbon Dioxide 21 L Anion Gap 9 BUN 22 H Creatinine 1.13 Estim Creat Clear Calc 47 Estimated GFR > 60 Glucose 132 H POC Capillary Glucose 138 H Calcium 8.4 Total Bilirubin 0.8 AST 14 L ALT 13 Alkaline Phosphatase 39 Total Protein 6.0 L Albumin 3.0 L Quality VTE Prophylaxis VTE prophylaxis: mechanical ordered Hospitalist MIPS Advance Care Plan I have confirmed that the patient's Advanced Care Plan is present, code status is documented, or surrogate decision maker is listed in patient medical record.: Yes Medication Reconciliation I have utilized all available resources to obtain, update and review the patients current medications (includes all prescriptions, OTC, herbals, cannabis, and nutritional supplements).: Yes
--- NOTE | 2024-09-07 08:13 | PCPTNOTE ---
Patient refused treatment this session due to pain. RN aware.
[2024-09-07 08:15] VITALS: PULSE 99; RESP 18; O2SAT 93
[2024-09-07] MEDS: FLUTICASONE/SALMETEROL 115-21 MCG INHALER 1 PUFF 2 PUFF INHALATION ×2 (08:15→20:27)
[2024-09-07] MEDS: OMEGA 3 POLYUNSAT FATTY ACIDS 1 GM CAP PO (09:07)
[2024-09-07] MEDS: dilTIAZem HCL CD 180 MG CAP.24HR PO (09:09)
[2024-09-07] MEDS: FERROUS SULFATE 325 MG TABLET DR PO (09:09)
[2024-09-07] MEDS: MULTIVITAMINS /C LUTEIN (CENTRUM SILVER) TABLET *BKC 1 TAB PO (09:09)
[2024-09-07] MEDS: CLOPIDOGREL BISULFATE 75 MG TABLET BY MOUTH (09:09)
[2024-09-07] MEDS: LIDOCAINE 5% PATCH 1 PATCH TRANSDERM (09:09)
[2024-09-07] MEDS: FINASTERIDE 5 MG TABLET BY MOUTH (09:09)
--- NOTE | 2024-09-07 10:24 | PCOTNOTE ---
Patient unavailable for OT treatment at this time. Patient is getting ready to go down for CT scanning, will check back at a later time.
--- NOTE | 2024-09-07 10:26 | P.PNOP_ITS ---
Progress Note: A&P Assessment and Plan (1) Left shoulder pain: Qualifiers: Chronicity: acute Qualified Code(s): M25.512 - Pain in left shoulder Code(s): M25.512 - Pain in left shoulder Status: Acute Assessment and Plan: History, exam and radiographs reviewed. Previous radiographs the left shoulder reveal proximal migration of the humeral head consistent with rotator cuff arthropathy. Do not suspect this is a new finding. No obvious evidence of fracture of the left shoulder. Swelling notable. No current ecchymosis. Significant tenderness to touch. Discussed condition, nature, etiology and course of natural history. Conservative treatment options reviewed as well as the risks benefits of each. Continue ice, apply topical pain patch. Range of motion exercises as tolerated. We will obtain CT scan of the left upper extremity due to failure to improve over the last 24 hours. Concern for possible fracture. CT scan reviewed. CT scan of the left shoulder reveals no evidence of fracture, dislocation. Moderate joint effusion. May continue current conservative treatment recommendations. Weightbearing as tolerated. Recommend activity as tolerated. (2) Primary osteoarthritis involving multiple joints: Code(s): M15.0 - Primary generalized (osteo)arthritis Status: Acute Assessment and Plan: Radiographs the left hip reveal no evidence of fracture, dislocation or acute abnormalities. Moderate swelling of the left hip noted. Tenderness to touch. Denies groin pain. Mainly reports lateral-sided pain. Recommend PT and OT. Out of bed to chair. Pain control. Ice. We will continue to monitor. If continued inability to tolerate PT and OT, further imaging may be warranted. (3) Fall: Code(s): W19.XXXA - Unspecified fall, initial encounter Status: Acute Assessment and Plan: PT and OT for evaluation. Possible rehab placement. Plan Reviewed history, exam, radiographs and current labs with attending MD and co vering surgeon, Dr. Martel, who agrees with current plan as indicated above. No further recommendations from Dr. Martel at this time. Subjective Subjective Date/Time Seen: 09/07/24 10:26 Interval history: Patient reports mild improvement in pain today. Not working well with PT and OT due to severe pain of the left upper extremity. Still with complaints of lower extremity pain and lateral-sided hip pain. Review of Systems Review of Systems: All systems reviewed & are unremarkable except as noted in HPI and below Exam Const: General: comfortable and no acute distress HENMT: Mouth: Yes moist mucous membranes Eyes: General: appearance normal, both eyes and all related structures Neck: Neck: supple and no JVD Resp: Effort & Inspection: normal respiratory effort Cardio: Rate: regular rate Rhythm: regular rhythm GI: Inspection: non-distended GI Palp: Yes Soft to palpation and No Tend erness to palpation present (GI) Neuro: General: gait normal Cognition (Neuro): normal cognition Speech: normal speech Extrem: Left upper extremity: shoulder/upper arm tenderness of the clavicle and of the proximal humerus, swelling of the proximal humerus, axillary nerve sensory function normal and abnormal ROM ( Range of motion exam limited due to patient's pain) held in an abnormal fashion in ADduction Left lower ex tremity: knee Details: normal to inspection, lower leg Details: tenderness and pitting edema Details: 2+; no abrasions, no lacerations and no ecchymosis, ankle Details: normal to inspection and foot Details: normal capillary refill and normal to inspection Psych: Mental Status: mental status grossly normal Affect: normal affect Objective Data Vital Signs Vital Signs: Vital Signs - 24 hr 09/06/24 13:45 09/06/24 20:09 09/06/24 22:00 Temperature 36.2 C L 36.6 C Pulse Rate 91 79 Respiratory Rate 20 14 Blood Pressure 136/65 130/72 Pulse Oximetry 99 96 95 Oxygen Delivery Room Air Fraction of Inspired Oxygen 09/07/24 05:46 09/07/24 08:15 09/07/24 08:15 Temperature 36.3 C L Pulse Rate 82 99 Respiratory Rate 14 18 Blood Pressure 137/88 Pulse Oximetry 98 93 Oxygen Delivery Room Air Fraction of Inspired Oxygen 21 Intake/Output Intake/Output: Intake & Output 09/04/24 09/05/24 09/06/24 09/07/24 23:59 23:59 23:59 23:59 Intake Total 790 920 440 Output Total 1000 500 Balance 790 -80 -60 Meds/Results Medications: Active Medications Generic Name Dose Route Start Last Admin Trade Name Freq PRN Reason Stop Dose Admin Acetaminophen 650 mg 09/05/24 13:33 09/05/24 19:44 Acetaminophen 325 Mg Tablet PO 650 mg Q6H PRN Administration Mild Pain (1-3) or Fever Hydrocodone Bitart/Acetaminophen 1 tab 09/06/24 09:17 09/06/24 17:37 Hydrocodone/Acetaminophen (*Crx) 5-325 Mg Tablet PO 1 tab Q4HR PRN Administration Pain Rated 4-6 Hydrocodone Bitart/Acetaminophen 1 tab 09/06/24 09:16 09/07/24 09:07 Hydrocodone/Acetaminophen (*Crx) 10-325 Mg Tablet PO 1 tab Q4H PRN Administration Pain Rated 7-10 Albuterol 2 puff 09/05/24 21:16 Albuterol Sulfate (*Sp) Aerosol 1 Puff INHALATION Q4HRT PRN shortness of breath or wheezing Atorvastatin Calcium 40 mg 09/05/24 21:35 09/06/24 21:22 Atorvastatin 40 Mg Tablet PO 40 mg QHS MELISSA Administration Clopidogrel Bisulfate 75 mg 09/06/24 09:00 09/07/24 09:09 Clopidogrel Bisulfate 75 Mg Tablet BY MOUTH 75 mg DAILY MELISSA Administration Dextrose 12.5 gm 09/05/24 13:34 Dextrose 50% 25 Gm/50 Ml Syringe IV PUSH PRN PRN Hypoglycemia Protocol Diltiazem HCl 180 mg 09/06/24 09:00 09/07/24 09:09 Diltiazem Hcl Cd 180 Mg Cap.24hr PO 180 mg DAILY MELISSA Administration Ferrous Sulfate 325 mg 09/06/24 09:00 09/07/24 09:09 Ferrous Sulfate [address] PO 325 mg DAILY MELISSA Administration Finasteride 5 mg 09/06/24 09:00 09/07/24 09:09 Finasteride 5 Mg Tablet BY MOUTH 5 mg DAILY MELISSA Administration Fish Oil 1 gm 09/06/24 09:00 09/07/24 09:07 Lutz 3 Polyunsat Fatty Acids 1 Gm Cap PO 1 gm QAM MELISSA Administration Glucagon 1 mg 09/05/24 13:34 Glucagon For Inj 1 Mg Vial IM PRN PRN Hypoglycemia Protocol Glucose 15 gm 09/05/24 13:34 Glucose Oral Gel 15 Gm Of Glucse In 37.5 Gm Tube PO PRN PRN Hypoglycemia Protocol Dextrose 1,000 mls @ 100 mls/hr 09/05/24 13:34 Dextrose 5% 1,000 Ml IVPB PRN PRN Hypoglycemia Protocol Insulin Aspart 2 - 5 units 09/05/24 17:00 09/06/24 20:27 Insulin Aspart (*Bkc) 100 Units/Ml SUB-Q Not Given TIDWM MELISSA Protocol Insulin Aspart 1 - 2 units 09/05/24 21:00 09/06/24 21:19 Insulin Aspart (*Bkc) 100 Units/Ml SUB-Q Not Given HS [facility] Protocol Lidocaine 1 patch 09/07/24 09:00 09/07/24 09:09 Lidocaine 5% Patch TRANSDERM 1 patch DAILY MELISSA Administration Multivitamins/Minerals 1 tab 09/06/24 09:00 09/07/24 09:09 Multivitamins /C Lutein (Centrum Silver) Tablet *Bkc PO 1 tab DAILY MELISSA Administration Oxybutynin Chloride 15 mg 09/05/24 21:40 09/06/24 21:22 Oxybutynin Chloride Xl 5 Mg Tab.Er.24 PO 15 mg HS [facility] Administration Rivaroxaban 15 mg 09/06/24 03:50 09/06/24 17:37 Rivaroxaban 15 Mg Tablet PO 15 mg DAILY@1700 MELISSA Administration Fluticasone/Salmeterol 2 puff 09/05/24 21:40 09/07/24 08:15 Fluticasone/Salmeterol 115-21 Mcg Inhaler 1 Puff INHALATION 2 puff Q12HRT MELISSA Administration Vitamin B Complex 1 cap 09/06/24 09:00 09/07/24 09:10 Vitamin B Complex Capsule PO Not Given DAILY [facility] Radiology Results: ITS Impressions Cervical Spine CT 09/05/24 08:05 Impression: No fracture or subluxation of the cervical spine. Advanced degenerative spondylosis, as above. Partially imaged left pleural effusion. Head CT 09/05/24 08:08 Impression: No acute abnormality. Stable focal hyperdensity in the right occipital lobe, suggestive of small cavernoma. Atrophy and chronic white matter changes, as above. Hip/Pelvis X-Ray 09/05/24 08:25 Impression: No significant abnormality is seen. Shoulder X-Ray 09/05/24 08:25 Impression: High riding humeral head suggests underlying rotator cuff tear. No acute fracture or dislocation. Degenerative change, as above. Knee X-Ray 09/05/24 08:26 Impression: Unremarkable left knee radiographs. Chest X-Ray 09/05/24 13:28 Impression: Clear lungs. Ribs X-Ray 09/05/24 21:51 IMPRESSION: No acute displaced left sided rib fracture, as detailed above. Venous Doppler Study 09/05/24 23:44 IMPRESSION: Deep venous thrombosis of the right posterior tibial and peroneal veins. Unable to evaluate the left posterior tibial and peroneal veins secondary to patient intolerance. Labs Labs: Laboratory Results - last 24 hr 09/06/24 09/06/24 09/06/24 11:20 16:57 19:57 WBC RBC Hgb Hct MCV MCH MCHC RDW Plt Count MPV Sodium Potassium Chloride Carbon Dioxide Anion Gap BUN Creatinine Estim Creat Clear Calc Estimated GFR Glucose POC Capillary Glucose 166 H 188 H 187 H Calcium Total Bilirubin AST ALT Alkaline Phosphatase Total Protein Albumin 09/07/24 09/07/24 05:31 07:41 WBC 12.8 H RBC 3.55 L Hgb 10.5 L Hct 34.7 L MCV 97.7 MCH 29.6 MCHC 30.3 L RDW 14.4 Plt Count 307 MPV 9.4 Sodium 134 L Potassium 4.7 Chloride 104 Carbon Dioxide 21 L Anion Gap 9 BUN 22 H Creatinine 1.13 Estim Creat Clear Calc 47 Estimated GFR > 60 Glucose 132 H POC Capillary Glucose 138 H Calcium 8.4 Total Bilirubin 0.8 AST 14 L ALT 13 Alkaline Phosphatase 39 Total Protein 6.0 L Albumin 3.0 L
[2024-09-07 12:05] LABS: Glucose Point of Care 148 mg/dl (65-105)
[2024-09-07 14:00] VITALS: BP 168/64; PULSE 87; RESP 17; TEMP 36.5; O2SAT 98
[2024-09-07 16:57] LABS: Glucose Point of Care 149 mg/dl (65-105)
[2024-09-07] MEDS: RIVAROXABAN 15 MG TABLET PO (17:03)
[2024-09-07 20:34] VITALS: O2SAT 94
[2024-09-07 20:34] LABS: Glucose Point of Care 155 mg/dl (65-105)
[2024-09-07 21:27] VITALS: BP 129/70; PULSE 81; RESP 18; TEMP 36.2; O2SAT 99
[2024-09-07] MEDS: oxyBUTYnin CHLORIDE XL 5 MG TAB.ER.24 15 MG PO (21:43)
[2024-09-07] MEDS: ATORVASTATIN 40 MG TABLET PO (21:44)
[2024-09-08 06:00] VITALS: BP 142/86; PULSE 78; RESP 16; TEMP 36.3; O2SAT 100
[2024-09-08 07:26] LABS: Hematocrit 33.6 % (42.0-52.0); Hemoglobin 10.2 g/dL (14.0-18.0); Mean Corpuscular HGB Conc 30.4 g/dl (32-36); Mean Corpuscular Hemoglobin 29.8 pg (26-34); Mean Corpuscular Volume 98.2 fl (80-100); Mean Platelet Volume 9.3 fl (7.4-10.4); Platelet Count Result 298 k/mm3 (150-375); Red Blood Count 3.42 M/mm3 (4.6-6.20); Red Cell Distribution Width 14.4 % (11.5-14.5); White Blood Count 8.9 K/mm3 (4.5-10.0)
[2024-09-08] MEDS: FLUTICASONE/SALMETEROL 115-21 MCG INHALER 1 PUFF 2 PUFF INHALATION ×2 (07:36→20:08)
[2024-09-08 07:37] VITALS: O2SAT 99
[2024-09-08 07:49] LABS: Alanine Aminotransferase 14 U/L (6-50); Albumin Level 2.9 g/dL (3.5-5.1); Alkaline Phosphatase 36 U/L (38-126); Anion Gap 6 mmol/L (4-12); Aspartate Amino Transferase 16 U/L (17-59); Bilirubin,Total 0.8 mg/dL (0.2-1.3); Blood Urea Nitrogen 20 mg/dL (9-20); Calcium 8.3 mg/dL (8.4-10.2); Carbon Dioxide 28 mmol/L (22-30); Chloride 101 mmol/L (98-107); Estimated CRCL calculation 50 ml/min; Estimated Glomerular Filt Rate > 60; Glucose 143 mg/dL (65-110); Potassium 4.2 mmol/L (3.4-5.0); Sodium 135 mmol/L (137-145)
[2024-09-08 07:59] LABS: Glucose Point of Care 151 mg/dl (65-105)
[2024-09-08] MEDS: LIDOCAINE 5% PATCH 1 PATCH TRANSDERM (09:19)
[2024-09-08] MEDS: CLOPIDOGREL BISULFATE 75 MG TABLET BY MOUTH (09:21)
[2024-09-08] MEDS: OMEGA 3 POLYUNSAT FATTY ACIDS 1 GM CAP PO (09:21)
[2024-09-08] MEDS: dilTIAZem HCL CD 180 MG CAP.24HR PO (09:21)
[2024-09-08] MEDS: VITAMIN B COMPLEX CAPSULE 1 CAP PO (09:21)
[2024-09-08] MEDS: MULTIVITAMINS /C LUTEIN (CENTRUM SILVER) TABLET *BKC 1 TAB PO (09:21)
[2024-09-08] MEDS: FINASTERIDE 5 MG TABLET BY MOUTH (09:22)
[2024-09-08] MEDS: FERROUS SULFATE 325 MG TABLET DR PO (09:22)
[2024-09-08] MEDS: HYDROcodone/acetaminophen (*CRX) 5-325 MG TABLET 1 TAB PO ×2 (09:22→17:25)
--- NOTE | 2024-09-08 09:36 | PM.IMPN ---
Progress Note: A&P Assessment and Plan (1) Frequent falls: Code(s): R29.6 - Repeated falls Status: Acute Assessment and Plan: Interval history: 84-year-old male with paroxysmal atrial fibrillation on chronic anticoagulation, coronary artery disease, hypertension, hyperlipidemia, type 2 diabetes mellitus, chronic obstructive pulmonary disease, untreated obstructive sleep apnea, benign prostatic hyperplasia, chronic kidney disease, arthritis, and lumbar spinal stenosis with neurogenic claudication status post minimally invasive lumbar decompression at L3-L4 and L4-L5 earlier this month who presented to the emergency department from home for evaluation of left shoulder and hip pain after fall. He was walking down the stairs yesterday morning and when he got to the last step his legs gave out and he fell down onto his left side. He has had significant pain in his left shoulder and to lesser extent in the left hip since that time. He has had increasing pain in the shoulder since that time, to the point where he can barely even lifted up due to excruciating pain, and came in for evaluation. There was no head trauma or loss of consciousness in the fall and he denies antecedent symptoms prior to the fall. He voices frustration as he has been participating in PT since his surgery and he feels as though he is not improving. In the ED: Vital signs were stable on arrival. CTA of the head and cervical spine were without acute findings. X-rays of the left hip, pelvis, shoulder, and knee were also without acute findings. Physical therapy evaluated the patient in the ED and he did not do well. Care coordination was then contacted to see if he could be placed in a rehab facility however he requires preauthorization by his insurance and is being admitted in this setting.Venous Doppler ultrasounds of the lower extremities bilaterally ordered on admission resulted positive for DVT of right posterior tibial and peroneal veins. The patient is adamant he wants to continue Xarelto to treat this in spite of his bruising on admission as well as his fall risk and restarted at reduced dose of 15 mg p.o. q.h.s.. 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 Status: Acute (4) Atrial fibrillation: Qualifiers: Atrial fibrillation type: unspecified Qualified Code(s): I48.91 - Unspecified atrial fibrillation Code(s): I48.91 - Unspecified atrial fibrillation Status: Chronic (5) Essential hypertension: Code(s): I10 - Essential (primary) hypertension Status: Chronic (6) Type 2 diabetes mellitus: Qualifiers: Diabetes mellitus complication status: without complication 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 No acute fracture or dislocation. -left hip x-ray no significant abnormality -rib x-ray no acute displaced left-sided rib fracture -continue PT OT -multimodal pain management -Ortho on board -case management on board CT chest/abdomen/pelvis:Soft tissue hematoma adjacent to the left posterior superior iliac spine likely the cause of patient's left hip pain without underlying fracture. Significant glenohumeral and acromioclavicular joint effusion without underlying fracture deformity of the left shoulder, possibly the cause of patient's left shoulder discomfort. High riding humeral heads bilaterally suggesting bilateral rotator cuff injury. Otherwise: No cross-sectional imaging evidence to suggest the presence of acute traumatic injury within the chest, abdomen or pelvis. Specifically, no hollow or solid organ injury. In addition: Multiple pulmonary nodules detected bilaterally for which follow-up as per Fleischner guidelines is recommended (repeat CT in 3 months, PET/CT, or tissue sampling). DVT -possibly be provoked by sedentary lifestyle -Venous Doppler Deep venous thrombosis of the right posterior tibial and peroneal veins. Unable to evaluate the left posterior tibial and peroneal veins secondary to patient intolerance. -Xarelto 15 mg reduced due to recent fall which resulted in bruising -monitor H&H and platelets -no evidence of cancer -hemodynamically stable -will monitor vitals Subjective Date/time seen: 09/08/24 09:36 Interval history: Interval history: 84-year-old male with paroxysmal atrial fibrillation on chronic anticoagulation, coronary artery disease, hypertension, hyperlipidemia, type 2 diabetes mellitus, chronic obstructive pulmonary disease, untreated obstructive sleep apnea, benign prostatic hyperplasia, chronic kidney disease, arthritis, and lumbar spinal stenosis with neurogenic claudication status post minimally invasive lumbar decompression at L3-L4 and L4-L5 earlier this month who presented to the emergency department from home for evaluation of left shoulder and hip pain after fall. He was walking down the stairs yesterday morning and when he got to the last step his legs gave out and he fell down onto his left side. He has had significant pain in his left shoulder and to lesser extent in the left hip since that time. He has had increasing pain in the shoulder since that time, to the point where he can barely even lifted up due to excruciating pain, and came in for evaluation. There was no head trauma or loss of consciousness in the fall and he denies antecedent symptoms prior to the fall. He voices frustration as he has been participating in PT since his surgery and he feels as though he is not improving. In the ED: Vital signs were stable on arrival. CTA of the head and cervical spine were without acute findings. X-rays of the left hip, pelvis, shoulder, and knee were also without acute findings. Physical therapy evaluated the patient in the ED and he did not do well. Care coordination was then contacted to see if he could be placed in a rehab facility however he requires preauthorization by his insurance and is being admitted in this setting.Venous Doppler ultrasounds of the lower extremities bilaterally ordered on admission resulted positive for DVT of right posterior tibial and peroneal veins. The patient is adamant he wants to continue Xarelto to treat this in spite of his bruising on admission as well as his fall risk and restarted at reduced dose of 15 mg p.o. q.h.s.. 09/07: Reviewed CT pelvis/hip/knee. Evidence ofSoft tissue hematoma adjacent to the left posterior superior iliac spine likely the cause of patient's left hip pain without underlying fracture. Discussed with family again in regards to continuing anticoagulation. Patient wants to continue the anticoagulation. His was present at the bedside. Patient has difficulty ambulating. 0 09/08: Hemoglobin stable. Evidence of huge hematoma on left upper buttock area. Surgery consulted. Patient c/o double vision and reports possibly due to pain medication. Head CT done and no acute findings.Still wants his AC to be continued. Review of Systems Review of Systems: 12 systems were reviewed and are negative except for as per HPI. Exam Narrative: General: Chronically ill-appearing male in the semi-Byrnes position in bed in no acute distress. Weight: 92.8 kg. BMI: 28.5. HEENT: PERRL, EOMI. Sclera anicteric. Oral mucosa moist. Neck: Supple. Respiratory: Respirations are nonlabored he is speaking in full sentences. Cardiovascular: Regular rate and rhythm with S1-S2. Systolic murmur at the left lower sternal border and apex. Gastrointestinal: Abdomen is soft, obese, nontender, and nondistended with positive bowel sounds. Skin: Warm and dry. Scattered bruising on the upper and lower extremities. There is a bruise with underlying hematoma on the left medial calf. Skin tears on the arms, worse on the left. Extremities: No cyanosis or clubbing. Pitting edema of the lower legs. Peripheral pulses palpable. Neurological: Alert. Cranial nerves 2-12 are grossly intact. No gross focal deficits to casual conversation. Musculoskeletal: His bit tender to palpation over the left flank. He is exquisitely tender to even light palpation over the anterior left shoulder and is hesitant to move that arm due to pain. Psychiatric: Pleasant and cooperative with appropriate mood and affect. Objective Data Vital Signs Vital Signs: Vital Signs - 24 hr 09/07/24 14:00 09/07/24 20:34 09/07/24 21:27 Temperature 97.7 F 97.2 F L Pulse Rate 87 81 Respiratory Rate 17 18 Blood Pressure 168/64 H 129/70 Pulse Oximetry 98 94 99 Oxygen Delivery 09/08/24 06:00 09/08/24 07:37 Temperature 97.4 F L Pulse Rate 78 Respiratory Rate 16 Blood Pressure 142/86 H Pulse Oximetry 100 99 Oxygen Delivery Room Air Intake/Output Intake/Output: Intake & Output 09/05/24 09/06/24 09/07/24 09/08/24 23:59 23:59 23:59 23:59 Intake Total 790 920 677 150 Output Total 1000 850 400 Balance 790 -80 -173 -312 Meds/Results Medications: Active Medications Generic Name Dose Route Start Last Admin Trade Name Freq PRN Reason Stop Dose Admin Acetaminophen 650 mg 09/05/24 13:33 09/05/24 19:44 Acetaminophen 325 Mg Tablet PO 650 mg Q6H PRN Administration Mild Pain (1-3) or Fever Hydrocodone Bitart/Acetaminophen 1 tab 09/06/24 09:17 09/08/24 09:22 Hydrocodone/Acetaminophen (*Crx) 5-325 Mg Tablet PO 1 tab Q4HR PRN Administration Pain Rated 4-6 Hydrocodone Bitart/Acetaminophen 1 tab 09/06/24 09:16 09/07/24 21:44 Hydrocodone/Acetaminophen (*Crx) 10-325 Mg Tablet PO 1 tab Q4H PRN Administration Pain Rated 7-10 Albuterol 2 puff 09/05/24 21:16 Albuterol Sulfate (*Sp) Aerosol 1 Puff INHALATION Q4HRT PRN shortness of breath or wheezing Atorvastatin Calcium 40 mg 09/05/24 21:35 09/07/24 21:44 Atorvastatin 40 Mg Tablet PO 40 mg QHS MELISSA Administration Clopidogrel Bisulfate 75 mg 09/06/24 09:00 09/08/24 09:21 Clopidogrel Bisulfate 75 Mg Tablet BY MOUTH 75 mg DAILY MELISSA Administration Dextrose 12.5 gm 09/05/24 13:34 Dextrose 50% 25 Gm/50 Ml Syringe IV PUSH PRN PRN Hypoglycemia Protocol Diltiazem HCl 180 mg 09/06/24 09:00 09/08/24 09:21 Diltiazem Hcl Cd 180 Mg Cap.24hr PO 180 mg DAILY MELISSA Administration Ferrous Sulfate 325 mg 09/06/24 09:00 09/08/24 09:22 Ferrous Sulfate [address] PO 325 mg DAILY MELISSA Administration Finasteride 5 mg 09/06/24 09:00 09/08/24 09:22 Finasteride 5 Mg Tablet BY MOUTH 5 mg DAILY MELISSA Administration Fish Oil 1 gm 09/06/24 09:00 09/08/24 09:21 [place] 3 Polyunsat Fatty Acids 1 Gm Cap PO 1 gm QAM MELISSA Administration Glucagon 1 mg 09/05/24 13:34 Glucagon For Inj 1 Mg Vial IM PRN PRN Hypoglycemia Protocol Glucose 15 gm 09/05/24 13:34 Glucose Oral Gel 15 Gm Of Glucse In 37.5 Gm Tube PO PRN PRN Hypoglycemia Protocol Dextrose 1,000 mls @ 100 mls/hr 09/05/24 13:34 Dextrose 5% 1,000 Ml IVPB PRN PRN Hypoglycemia Protocol Insulin Aspart 2 - 5 units 09/05/24 17:00 09/08/24 09:18 Insulin Aspart (*Bkc) 100 Units/Ml SUB-Q Not Given TIDWM MELISSA Protocol Insulin Aspart 1 - 2 units 09/05/24 21:00 09/07/24 21:41 Insulin Aspart (*Bkc) 100 Units/Ml SUB-Q Not Given HS MELISSA Protocol Lidocaine 1 patch 09/07/24 09:00 09/08/24 09:19 Lidocaine 5% Patch TRANSDERM 1 patch DAILY MELISSA Administration Multivitamins/Minerals 1 tab 09/06/24 09:00 09/08/24 09:21 Multivitamins /C Lutein (Centrum Silver) Tablet *Bkc PO 1 tab DAILY MELISSA Administration Oxybutynin Chloride 15 mg 09/05/24 21:40 09/07/24 21:43 Oxybutynin Chloride Xl 5 Mg Tab.Er.24 PO 15 mg HS MELISSA Administration Rivaroxaban 15 mg 09/06/24 03:50 09/07/24 17:03 Rivaroxaban 15 Mg Tablet PO 15 mg DAILY@1700 MELISSA Administration Fluticasone/Salmeterol 2 puff 09/05/24 21:40 09/08/24 07:36 Fluticasone/Salmeterol 115-21 Mcg Inhaler 1 Puff INHALATION 2 puff Q12HRT MELISSA Administration Vitamin B Complex 1 cap 09/06/24 09:00 09/08/24 09:21 Vitamin B Complex Capsule PO 1 cap DAILY MELISSA Administration Radiology Results: ITS Impressions Cervical Spine CT 09/05/24 08:05 Impression: No fracture or subluxation of the cervical spine. Advanced degenerative spondylosis, as above. Partially imaged left pleural effusion. Head CT 09/05/24 08:08 Impression: No acute abnormality. Stable focal hyperdensity in the right occipital lobe, suggestive of small cavernoma. Atrophy and chronic white matter changes, as above. Hip/Pelvis X-Ray 09/05/24 08:25 Impression: No significant abnormality is seen. Shoulder X-Ray 09/05/24 08:25 Impression: High riding humeral head suggests underlying rotator cuff tear. No acute fracture or dislocation. Degenerative change, as above. Knee X-Ray 09/05/24 08:26 Impression: Unremarkable left knee radiographs. Chest X-Ray 09/05/24 13:28 Impression: Clear lungs. Ribs X-Ray 09/05/24 21:51 IMPRESSION: No acute displaced left sided rib fracture, as detailed above. Venous Doppler Study 09/05/24 23:44 IMPRESSION: Deep venous thrombosis of the right posterior tibial and peroneal veins. Unable to evaluate the left posterior tibial and peroneal veins secondary to patient intolerance. Knee CT 09/07/24 11:11 IMPRESSION: 1. No left knee joint effusion or acute osseous abnormality. Chest/Abdomen/Pelvis CT 09/07/24 11:15 IMPRESSION: Soft tissue hematoma adjacent to the left posterior superior iliac spine likely the cause of patient's left hip pain without underlying fracture. Significant glenohumeral and acromioclavicular joint effusion without underlying fracture deformity of the left shoulder, possibly the cause of patient's left shoulder discomfort. High riding humeral heads bilaterally suggesting bilateral rotator cuff injury. Otherwise: No cross-sectional imaging evidence to suggest the presence of acute traumatic injury within the chest, abdomen or pelvis. Specifically, no hollow or solid organ injury. In addition: Multiple pulmonary nodules detected bilaterally for which follow-up as per Fleischner guidelines is recommended (repeat CT in 3 months, PET/CT, or tissue sampling). Labs Labs: Laboratory Results - last 24 hr 09/07/24 09/07/24 09/07/24 11:57 16:54 19:57 WBC RBC Hgb Hct MCV MCH MCHC RDW Plt Count MPV Sodium Potassium Chloride Carbon Dioxide Anion Gap BUN Creatinine Estim Creat Clear Calc Estimated GFR Glucose POC Capillary Glucose 148 H 149 H 155 H Calcium Total Bilirubin AST ALT Alkaline Phosphatase Total Protein Albumin 09/08/24 09/08/24 07:08 07:38 WBC 8.9 RBC 3.42 L Hgb 10.2 L Hct 33.6 L MCV 98.2 MCH 29.8 MCHC 30.4 L RDW 14.4 Plt Count 298 MPV 9.3 Sodium 135 L Potassium 4.2 Chloride 101 Carbon Dioxide 28 Anion Gap 6 BUN 20 Creatinine 1.05 Estim Creat Clear Calc 50 Estimated GFR > 60 Glucose 143 H POC Capillary Glucose 151 H Calcium 8.3 L Total Bilirubin 0.8 AST 16 L ALT 14 Alkaline Phosphatase 36 L Total Protein 6.0 L Albumin 2.9 L Quality VTE Prophylaxis VTE prophylaxis: mechanical ordered Hospitalist [facility] Advance Care Plan I have confirmed that the patient's Advanced Care Plan is present, code status is documented, or surrogate decision maker is listed in patient medical record.: Yes Medication Reconciliation I have utilized all available resources to obtain, update and review the patients current medications (includes all prescriptions, OTC, herbals, cannabis, and nutritional supplements).: Yes
[2024-09-08 12:10] LABS: Glucose Point of Care 166 mg/dl (65-105)
[2024-09-08 14:00] VITALS: BP 139/73; PULSE 98; RESP 18; TEMP 37; O2SAT 98
[2024-09-08 16:52] LABS: Glucose Point of Care 183 mg/dl (65-105)
[2024-09-08] MEDS: RIVAROXABAN 15 MG TABLET PO (17:25)
[2024-09-08] MEDS: polyethylene glycoL 3350 17 GM POWD.PACK PO (17:25)
[2024-09-08 19:30] LABS: Glucose Point of Care 160 mg/dl (65-105)
[2024-09-08 20:00] VITALS: PULSE 90; RESP 20; O2SAT 98
[2024-09-08 20:11] VITALS: O2SAT 95
[2024-09-08 20:37] VITALS: BP 134/77; PULSE 90; RESP 20; TEMP 36.4; O2SAT 98
[2024-09-08] MEDS: ATORVASTATIN 40 MG TABLET PO (21:23)
[2024-09-08] MEDS: oxyBUTYnin CHLORIDE XL 5 MG TAB.ER.24 15 MG PO (21:23)
[2024-09-09] VITALS (9 sets, daily range): BP systolic 131–160; BP diastolic 52–76; PULSE 73–97; RESP 16–20; TEMP 36.4–37.6; O2SAT 95–98
[2024-09-09] MEDS: HYDROcodone/acetaminophen (*CRX) 5-325 MG TABLET 1 TAB PO ×2 (02:41→06:38)
[2024-09-09 06:10] LABS: Hematocrit 32.8 % (42.0-52.0); Hemoglobin 10.1 g/dL (14.0-18.0); Mean Corpuscular HGB Conc 30.8 g/dl (32-36); Mean Corpuscular Hemoglobin 29.6 pg (26-34); Mean Corpuscular Volume 96.2 fl (80-100); Mean Platelet Volume 9.3 fl (7.4-10.4); Platelet Count Result 322 k/mm3 (150-375); Red Blood Count 3.41 M/mm3 (4.6-6.20)
[2024-09-09 06:29] LABS: Alanine Aminotransferase 13 U/L (6-50); Albumin Level 2.9 g/dL (3.5-5.1); Alkaline Phosphatase 36 U/L (38-126); Anion Gap 7 mmol/L (4-12); Aspartate Amino Transferase 15 U/L (17-59); Bilirubin,Total 1.1 mg/dL (0.2-1.3); Blood Urea Nitrogen 19 mg/dL (9-20); Calcium 8.6 mg/dL (8.4-10.2); Carbon Dioxide 27 mmol/L (22-30); Chloride 102 mmol/L (98-107); Estimated CRCL calculation 50 ml/min; Estimated Glomerular Filt Rate > 60; Glucose 122 mg/dL (65-110); Potassium 4.6 mmol/L (3.4-5.0); Sodium 136 mmol/L (137-145)
[2024-09-09 07:52] LABS: Glucose Point of Care 128 mg/dl (65-105)
[2024-09-09] MEDS: FLUTICASONE/SALMETEROL 115-21 MCG INHALER 1 PUFF 2 PUFF INHALATION ×2 (07:55→20:57)
--- NOTE | 2024-09-09 09:21 | P.PNIM_ITS ---
Progress Note: A&P Assessment and Plan (1) Frequent falls: Code(s): R29.6 - Repeated falls Status: Acute Assessment and Plan: Interval history: 84-year-old male with paroxysmal atrial fibrillation on chronic anticoagulation, coronary artery disease, hypertension, hyperlipidemia, type 2 diabetes mellitus, chronic obstructive pulmonary disease, untreated obstructive sleep apnea, benign prostatic hyperplasia, chronic kidney disease, arthritis, and lumbar spinal stenosis with neurogenic claudication status post minimally invasive lumbar decompression at L3-L4 and L4-L5 earlier this month who presented to the emergency department from home for evaluation of left shoulder and hip pain after fall. He was walking down the stairs yesterday morning and when he got to the last step his legs gave out and he fell down onto his left side. He has had significant pain in his left shoulder and to lesser extent in the left hip since that time. He has had increasing pain in the shoulder since that time, to the point where he can barely even lifted up due to excruciating pain, and came in for evaluation. There was no head trauma or loss of consciousness in the fall and he denies antecedent symptoms prior to the fall. He voices frustration as he has been participating in PT since his surgery and he feels as though he is not improving. In the ED: Vital signs were stable on arrival. CTA of the head and cervical spine were without acute findings. X- rays of the left hip, pelvis, shoulder, and knee were also without acute findings. Physical therapy evaluated the patient in the ED and he did not do well. Care coordination was then contacted to see if he could be placed in a rehab facility however he requires preauthorization by his insurance and is being admitted in this setting.Venous Doppler ultrasounds of the lower extremities bilaterally ordered on admission resulted positive for DVT of right posterior tibial and peroneal veins. The patient is adamant he wants to continue Xarelto to treat this in spite of his bruising on admission as well as his fall risk and restarted at reduced dose of 15 mg p.o. q.h.s.. (2) Left shoulder pain: Qualifiers: Chronicity: acute Qualified Code(s): M25.512 - Pain in left shoulder Code(s): M25.512 - Pain in left shoulder Status: Acute (3) Chronic anticoagulation: Code(s): Z79.01 - detention (current) use of anticoagulants Status: Acute (4) Atrial fibrillation: Qualifiers: Atrial fibrillation type: unspecified Qualified Code(s): I48.91 - U nspecified atrial fibrillation Code(s): I48.91 - Unspecified atrial fibrillation Status: Chronic (5) Essential hypertension: Code(s): I10 - Essential (primary) hypertension Status: Chronic (6) Type 2 diabetes mellitus: Qualifiers: Diabetes mellitus complication status: without complication 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 No acute fracture or dislocation. -left hip x-ray no significant abnormality -rib x-ray no acute displaced left-sided rib fracture -continue PT OT -multimodal pain management -Ortho on board -case management on board Hematoma: Surgery consulted Patient wants to continue AC CT chest/abdomen/pelvis:Soft tissue hematoma adjacent to the left posterior superior iliac spine likely the cause of patient's left hip pain without underlying fracture.Significant glenohumeral and acromioclavicular joint effusion without underlying fracture deformity of the left shoulder, possibly the cause of patient's left shoulder discomfort.High riding humeral heads bilaterally suggesting bilateral rotator cuff injury. Otherwise:No cross-sectional imaging evidence to suggest the presence of acute traumatic injury within the chest, abdomen or pelvis. Specifically, no hollow or solid organ injury.In addition:Multiple pulmonary nodules detected bilaterally for which follow-up as per Fleischner guidelines is recommended (repeat CT in 3 months, PET/CT, or tissue sampling). DVT -possibly be provoked by sedentary lifestyle -Venous Doppler Deep venous thrombosis of the right posterior tibial and peroneal veins. Unable to evaluate the left posterior tibial and peroneal veins secondary to patient intolerance. -Xarelto 15 mg reduced due to recent fall which resulted in bruising -monitor H&H and platelets -no evidence of cancer -hemodynamically stable -will monitor vitals Subjective Date/time seen: 09/09/24 09:21 Interval history: Interval history: 84-year-old male with paroxysmal atrial fibrillation on chronic anticoagulation, coronary artery disease, hypertension, hyperlipidemia, type 2 diabetes mellitus, chronic obstructive pulmonary disease, untreated obstructive sleep apnea, benign prostatic hyperplasia, chronic kidney disease, arthritis, and lumbar spinal stenosis with neurogenic claudication status post minimally invasive lumbar decompression at L3-L4 and L4-L5 earlier this month who presented to the emergency department from home for evaluation of left shoulder and hip pain after fall. He was walking down the stairs yesterday morning and when he got to the last step his legs gave out and he fell down onto his left side. He has had significant pain in his left shoulder and to lesser extent in the left hip since that time. He has had increasing pain in the shoulder since that time, to the point where he can barely even lifted up due to excruciating pain, and came in for evaluation. There was no head trauma or loss of consciousness in the fall and he denies antecedent symptoms prior to the fall. He voices frustration as he has been participating in PT since his surgery and he feels as though he is not improving. In the ED: Vital signs were stable on arrival. CTA of the head and cervical spine were without acute findings. X- rays of the left hip, pelvis, shoulder, and knee were also without acute findings. Physical therapy evaluated the patient in the ED and he did not do well. Care coordination was then contacted to see if he could be placed in a rehab facility however he requires preauthorization by his insurance and is being admitted in this setting.Venous Doppler ultrasounds of the lower extremities bilaterally ordered on admission resulted positive for DVT of right posterior tibial and peroneal veins. The patient is adamant he wants to continue Xarelto to treat this in spite of his bruising on admission as well as his fall risk and restarted at reduced dose of 15 mg p.o. q.h.s.. 09/07: Reviewed CT pelvis/hip/knee. Evidence ofSoft tissue hematoma adjacent to the left posterior superior iliac spine likely the cause of patient's left hip pain without underlying fracture. Discussed with family again in regards to continuing anticoagulation. Patient wants to continue the anticoagulation. His was present at the bedside. Patient has difficulty ambulating. 0 09/08: Hemoglobin stable. Evidence of huge hematoma on left upper buttock area. Surgery consulted. Patient c/o double vision and reports possibly due to pain medication. Head CT done and no acute findings.Still wants his AC to be continued. Sees su nixon. Will hold pain meds and perform MRI brain Review of Systems Review of Systems: 12 systems were reviewed and are negativ e except for as per HPI. Exam Narrative: General: Chronically ill-appearing male in the semi-Byrnes position in bed in no acute distress. Weight: 92.8 kg. BMI: 28.5. HEENT: PERRL, EOMI. Sclera anicteric. Oral mucosa moist. Neck: Supple. Respiratory: Respirations are nonlabored he is speaking in full sentences. Cardiovascular: Regular rate and rhythm with S1-S2. Systolic murmur at the left lower sternal border and apex. Gastrointestinal: Abdomen is soft, obese, nontender, and nondistended with positive bowel sounds. Skin: Warm and dry. Scattered bruising on the upper and lower extremities. There is a bruise with underlying hematoma on the left medial calf. Skin tears on the arms, worse on the left. Extremities: No cyanosis or clubbing. Pitting edema of the lower legs. Peripheral pulses palpable. Neurological: Alert. Cranial nerves 2-12 are grossly intact. No gross focal deficits to casual conversation. Musculoskeletal: His bit tender to palpation over the left flank. He is exquisitely tender to even light palpation over the anterior left shoulder and is hesitant to move that arm due to pain. Psychiatric: Pleasant and cooperative with appropriate mood and affect. Objective Data Vital Signs Vital Signs: Vital Signs - 24 hr 09/08/24 14:00 09/08/24 20:00 09/08/24 20:11 Temperature 98.6 F Pulse Rate 98 90 Respiratory Rate 18 20 Blood Pressure 139/73 Pulse Oximetry 98 98 95 Oxygen Delivery Room Air Room Air Fraction of Inspired Oxygen 09/08/24 20:37 09/09/24 05:59 09/09/24 07:55 Temperature 97.6 F 97.8 F Pulse Rate 90 74 Respiratory Rate 20 20 Blood Pressure 134/77 132/52 L Pulse Oximetry 98 98 97 Oxygen Delivery Room Air Fraction of Inspired Oxygen 09/09/24 07:55 Temperature Pulse Rate 73 Respiratory Rate 20 Blood Pressure Pulse Oximetry Oxygen Delivery Fraction of Inspired Oxygen Intake/Output Intake/Output: Intake & Output 09/06/24 09/07/24 09/08/24 09/09/24 23:59 23:59 23:59 23:59 Intake Total 920 677 670 Output Total 8020 134 7738 300 Balance -80 -173 -1780 -300 Meds/Results Medications: Active Medications Generic Name Dose Route Start Last Admin Trade Name Freq PRN Reason Stop Dose Admin Acetaminophen 650 mg 09/05/24 13:33 09/05/24 19:44 Acetaminophen 325 Mg Tablet PO 650 mg Q6H PRN Administration Mild Pain (1-3) or Fever Hydrocodone Bitart/Acetaminophen 1 tab 09/06/24 09:17 09/09/24 06:38 Hydrocodone/Acetaminophen (*Crx) 5-325 Mg Tablet PO 1 tab Q4HR PRN Administration Pain Rated 4-6 Hydrocodone Bitart/Acetaminophen 1 tab 09/06/24 09:16 09/07/24 21:44 Hydrocodone/Acetaminophen (*Crx) 10-325 Mg Tablet PO 1 tab Q4H PRN Administration Pain Rated 7-10 Albuterol 2 puff 09/05/24 21:16 Albuterol Sulfate (*Sp) Aerosol 1 Puff INHALATION Q4HRT PRN shortness of breath or wheezing Atorvastatin Calcium 40 mg 09/05/24 21:35 09/08/24 21:23 Atorvastatin 40 Mg Tablet PO 40 mg QHS MELISSA Administration Clopidogrel Bisulfate 75 mg 09/06/24 09:00 09/08/24 09:21 Clopidogrel Bisulfate 75 Mg Tablet BY MOUTH 75 mg DAILY MELISSA Administration Dextrose 12.5 gm 09/05/24 13:34 Dextrose 50% 25 Gm/50 Ml Syringe IV PUSH PRN PRN Hypoglycemia Protocol Diltiazem HCl 180 mg 09/06/24 09:00 09/08/24 09:21 Diltiazem Hcl Cd 180 Mg Cap.24hr PO 180 mg DAILY MELISSA Administration Ferrous Sulfate 325 mg 09/06/24 09:00 09/08/24 09:22 Ferrous Sulfate [address] PO 325 mg DAILY MELISSA Administration Finasteride 5 mg 09/06/24 09:00 09/08/24 09:22 Finasteride 5 Mg Tablet BY MOUTH 5 mg DAILY MELISSA Administration Fish Oil 1 gm 09/06/24 09:00 09/08/24 09:21 [place] 3 Polyunsat Fatty Acids 1 Gm Cap PO 1 gm QAM MELISSA Administration Glucagon 1 mg 09/05/24 13:34 Glucagon For Inj 1 Mg Vial IM PRN PRN Hypoglycemia Protocol Glucose 15 gm 09/05/24 13:34 Glucose Oral Gel 15 Gm Of Glucse In 37.5 Gm Tube PO PRN PRN Hypoglycemia Protocol Dextrose 1,000 mls @ 100 mls/hr 09/05/24 13:34 Dextrose 5% 1,000 Ml IVPB PRN PRN Hypoglycemia Protocol Insulin Aspart 2 - 5 units 09/05/24 17:00 09/08/24 17:01 Insulin Aspart (*Bkc) 100 Units/Ml SUB-Q Not Given TIDWM MELISSA Protocol Insulin Aspart 1 - 2 units 09/05/24 21:00 09/08/24 21:24 Insulin Aspart (*Bkc) 100 Units/Ml SUB-Q Not Given HS MELISSA Protocol Lidocaine 1 patch 09/07/24 09:00 09/08/24 09:19 Lidocaine 5% Patch TRANSDERM 1 patch DAILY MELISSA Administration Multivitamins/Minerals 1 tab 09/06/24 09:00 09/08/24 09:21 Multivitamins /C Lutein (Centrum Silver) Tablet *Bkc PO 1 tab DAILY MELISSA Administration Oxybutynin Chloride 15 mg 09/05/24 21:40 09/08/24 21:23 Oxybutynin Chloride Xl 5 Mg Tab.Er.24 PO 15 mg HS MELISSA Administration Polyethylene Glycol 17 gm 09/08/24 17:00 09/08/24 17:25 Polyethylene Glycol 3350 17 Gm Powd.Pack PO 17 gm QAM MELISSA Administration Rivaroxaban 15 mg 09/06/24 03:50 09/08/24 17:25 Rivaroxaban 15 Mg Tablet PO 15 mg DAILY@1700 MELISSA Administration Fluticasone/Salmeterol 2 puff 09/05/24 21:40 09/09/24 07:55 Fluticasone/Salmeterol 115-21 Mcg Inhaler 1 Puff INHALATION 2 puff Q12HRT MELISSA Administration Vitamin B Complex 1 cap 09/06/24 09:00 09/08/24 09:21 Vitamin B Complex Capsule PO 1 cap DAILY MELISSA Administration Radiology Results: ITS Impressions Cervical Spine CT 09/05/24 08:05 Impression: No fracture or subluxation of the cervical spine. Advanced degenerative spondylosis, as above. Partially imaged left pleural effusion. Hip/Pelvis X-Ray 09/05/24 08:25 Impression: No significant abnormality is seen. Shoulder X-Ray 09/05/24 08:25 Impression: High riding humeral head suggests underlying rotator cuff tear. No acute fracture or dislocation. Degenerative change, as above. Knee X-Ray 09/05/24 08:26 Impression: Unremarkable left knee radiographs. Chest X-Ray 09/05/24 13:28 Impression: Clear lungs. Ribs X-Ray 09/05/24 21:51 IMPRESSION: No acute displaced left sided rib fracture, as detailed above. Venous Doppler Study 09/05/24 23:44 IMPRESSION: Deep venous thrombosis of the right posterior tibial and peroneal veins. Unable to evaluate the left posterior tibial and peroneal veins secondary to patient intolerance. Knee CT 09/07/24 11:11 IMPRESSION: 1. No left knee joint effusion or acute osseous abnormality. Chest/Abdomen/Pelvis CT 09/07/24 11:15 IMPRESSION: Soft tissue hematoma adjacent to the left posterior superior iliac spine likely the cause of patient's left hip pain without underlying fracture. Significant glenohumeral and acromioclavicular joint effusion without underlying fracture deformity of the left shoulder, possibly the cause of patient's left shoulder discomfort. High riding humeral heads bilaterally suggesting bilateral rotator cuff injury. Otherwise: No cross-sectional imaging evidence to suggest the presence of acute traumatic injury within the chest, abdomen or pelvis. Specifically, no hollow or solid organ injury. In addition: Multiple pulmonary nodules detected bilaterally for which follow-up as per Fleischner guidelines is recommended (repeat CT in 3 months, PET/CT, or tissue sampling). Head CT 09/08/24 15:15 IMPRESSION: No acute intracranial findings. Labs Labs: Laboratory Results - last 24 hr 09/08/24 09/08/24 09/08/24 11:57 16:46 19:12 WBC RBC Hgb Hct MCV MCH MCHC RDW Plt Count MPV Sodium Potassium Chloride Carbon Dioxide Anion Gap BUN Creatinine Estim Creat Clear Calc Estimated GFR Glucose POC Capillary Glucose 166 H 183 H 160 H Calcium Total Bilirubin AST ALT Alkaline Phosphatase Total Protein Albumin 09/09/24 09/09/24 05:33 07:41 WBC 9.0 RBC 3.41 L Hgb 10.1 L Hct 32.8 L MCV 96.2 MCH 29.6 MCHC 30.8 L RDW 14.0 Plt Count 322 MPV 9.3 Sodium 136 L Potassium 4.6 Chloride 102 Carbon Dioxide 27 Anion Gap 7 BUN 19 Creatinine 1.06 Estim Creat Clear Calc 50 Estimated GFR > 60 Glucose 122 H POC Capillary Glucose 128 H Calcium 8.6 Total Bilirubin 1.1 AST 15 L ALT 13 Alkaline Phosphatase 36 L Total Protein 6.0 L Albumin 2.9 L Quality VTE Prophylaxis VTE prophylaxis: mechanical ordered Hospitalist [facility] Advance Care Plan I have confirmed that the patient's Advanced Care Plan is present, code status is documented, or surrogate decision maker is listed in patient medical record.: Yes Medication Reconciliation I have utilized all available resources to obtain, update and review the patients current medications (includes all prescriptions, OTC, herbals, cannabis, and nutritional supplements).: Yes
[2024-09-09] MEDS: polyethylene glycoL 3350 17 GM POWD.PACK PO (09:24)
[2024-09-09] MEDS: LIDOCAINE 5% PATCH 1 PATCH TRANSDERM (09:24)
[2024-09-09] MEDS: dilTIAZem HCL CD 180 MG CAP.24HR PO (09:24)
[2024-09-09] MEDS: OMEGA 3 POLYUNSAT FATTY ACIDS 1 GM CAP PO (09:24)
[2024-09-09] MEDS: FINASTERIDE 5 MG TABLET BY MOUTH (09:24)
[2024-09-09] MEDS: VITAMIN B COMPLEX CAPSULE 1 CAP PO (09:24)
[2024-09-09] MEDS: CLOPIDOGREL BISULFATE 75 MG TABLET BY MOUTH (09:24)
[2024-09-09] MEDS: MULTIVITAMINS /C LUTEIN (CENTRUM SILVER) TABLET *BKC 1 TAB PO (09:24)
[2024-09-09] MEDS: FERROUS SULFATE 325 MG TABLET DR PO (09:24)
--- NOTE | 2024-09-09 10:25 | P.CONGS_ITS ---
Assessment and Plan Assessment and plan (1) Hematoma: Code(s): T14.8XXA - Other injury of unspecified body region, initial encounter Status: Acute Assessment and Plan: stable, seems to be resolving, okay to continue anticoagulation at this point, no acute surgical issues History of Present Illness Consult details Consult date: 09/09/24 Reason for consult: other ( hematoma) Requesting physician: Camille Szymanski MD Narrative: The patient is an 84-year-old male with multiple medical issues presenting status post fall on his left side. The patient reports he missed a step approximately 2 weeks ago and fell on his left side. The patient complains of significant left shoulder and left hip pain. Of note, the patient is anticoagulated. The patient is noted to have a moderate-sized hematoma over his left hip. The patient reports the hematoma seems to be improving at this point. Review of Systems 2 Review of Systems: All systems reviewed & are unremarkable except as noted in HPI and below PMFSH Past Medical History Medical History Chronic kidney disease, stage 3 Chronic anticoagulation Cerebral cavernoma Obstructive sleep apnea intolerant to CPAP Lumbosacral stenosis with neurogenic claudication with epidural steroid injection L4-L5 December 2022 Mild cognitive impairment COPD with asthma Lumbosacral radiculopathy Claudication of both lower extremities Postlaminectomy syndrome Lumbosacral spondylosis Long COVID Atrial fibrillation Benign non-nodular prostatic hyperplasia without lower urinary tract symptoms Essential hypertension 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 Surgical History Surgical History History of lumbar discectomy (08/2024) minimally invasive at L3-L4 and L4-L5 History of lumbar fusion History of cardiac catheterization (03/2023) multivessel coronary disease to 80% stenosis of the proximal LAD 70% stenosis midportion of LAD very small diagonal branch, proximal and mid left circ have luminal irregularities 90% long stenosis left circumflex, small caliber obtuse marginal branch with mild diffuse disease obtuse marginal 2 has a moderate stenosis of the midportion right coronary artery is dominant vessel with 90% stenosis of the midportion and mid RPDA has 2 tandem stenosis is of 60-70% the patient was referred for CV surgery however the patient then underwent staged procedure at [facility] with PCI and stent to mid distal left circ and in September 2023 he had a PCI to the mid RCA History of cataract surgery Family History Family History Sibling Patient's sister is in good health Patient's brother is in good health Father Heart disease Acute myocardial infarction Telangiectasia Czciy-Eqrjf-Ppndh disease Angiodysplasia AVM (arteriovenous malformation) Mother Acute myocardial infarction Social History Social History Social History: Surrogate medical decision maker: Genoveva Villa, spouse. Code status: DO NOT RESUSCITATE. Smoking packs per day: 0.5 Smoking cigarettes per day: 10.0 Years smoked: 2 Smoking pack-years: 1.00 Smoking status: Former smoker Second hand tobacco smoke exposure: No Alcohol intake: never Substance use: never Substance use type: does not use Do You Feel Safe in your Home?: Yes Lack of Transportation: No Lack of Food: Never True Current Housing: I Have Housing Concerned About Future Housing: No Difficulty Paying Gas/Electric Bills: No Difficulty Paying for Meds: No Currently Unemployed: No Education: Grade School Difficulty w/ Childcare or Family Care: No Living arrangements: with family Additional living arrangements comments: Lives with in [place]. Occupation/Education: retired Additional occupation/education comments: [employer]. Spiritual care concerns: No Meds Home Medications and Allergies Home Medications ?Medication ?Instructions ?Recorded ?Confirmed ?Type lancets (Lancets, Super Thin) #100 ea 01/30/20 09/05/24 Rx blood sugar diagnostic (Contour #100 ea 03/19/20 09/05/24 Rx Next Test Strips) multivit with minerals-iron 18 1 tablet PO DAILY 12/10/21 09/05/24 History mg-folic ac 400 mcg-vit K 25 mcg tablet (Adults Multivitamin) vitamin B complex (B 1 tablet PO DAILY 12/10/21 09/05/24 History Complex-Vitamin B12 tablet) atorvastatin 40 mg tablet 40 mg PO QPM 10/21/23 09/05/24 History finasteride 5 mg tablet See Rx Instructions .Route 01/02/24 09/05/24 Rx .COMPLEX #90 tabs omega-3 fatty acids 1,000 mg PO DAILY 04/09/24 09/05/24 History diltiazem HCl 180 mg 180 mg PO Q24H 05/02/24 09/05/24 History capsule,extended release 24 hr fluticasone 250 mcg-salmeterol 50 See Rx Instructions .Route 05/25/24 09/05/24 Rx mcg/dose blistr powdr for .COMPLEX #180 ea inhalation (Wixela Inhub) clopidogrel 75 mg tablet See Rx Instructions .Route 05/28/24 09/05/24 Rx .COMPLEX #90 tabs oxybutynin chloride 15 mg 15 mg PO HS #90 tabs 05/28/24 09/05/24 Rx tablet,extended release 24 hr metformin 1,000 mg tablet 1,000 mg PO DAILY #180 tabs 07/13/24 09/05/24 Rx albuterol sulfate 90 mcg/actuation 2 puff inhalation Q4H PRN 07/19/24 09/05/24 Rx aerosol inhaler (ProAir HFA) shortness of breath or wheezing #8.5 grams ferrous sulfate 325 mg (65 mg 325 mg PO DAILY #90 tabs 07/19/24 09/05/24 Rx iron) tablet rivaroxaban 20 mg tablet (Xarelto) 20 mg PO QPM #30 tabs 08/15/24 09/05/24 Rx Allergies Allergy/AdvReac Type Severity Reaction Status Date / Time Opioids - Morphine Analogues AdvReac Intermediate Nausea and Verified 09/05/24 18:07 Vomiting Vital Signs Vital Signs - 24 hr 09/08/24 14:00 09/08/24 20:00 09/08/24 20:11 Temperature 37.0 C Pulse Rate 98 90 Respiratory Rate 18 20 Blood Pressure 139/73 Pulse Oximetry 98 98 95 Oxygen Delivery Room Air Room Air Fraction of Inspired Oxygen 09/08/24 20:37 09/09/24 05:59 09/09/24 07:55 Temperature 36.4 C 36.6 C Pulse Rate 90 74 Respiratory Rate 20 20 Blood Pressure 134/77 132/52 L Pulse Oximetry 98 98 97 Oxygen Delivery Room Air Fraction of Inspired Oxygen 21 09/09/24 07:55 Temperature Pulse Rate 73 Respiratory Rate 20 Blood Pressure Pulse Oximetry Oxygen Delivery Fraction of Inspired Oxygen Exam 2 Const: General: cooperative, no acute distress, ill appearing and uncomfortable HENMT: Head: normal to inspection, normocephalic and atraumatic Eyes: General: appearance normal, both eyes and all related structures Neck: Neck: normal visual inspection, full ROM and no lymphadenopathy Resp: Auscultation: diminished lung sounds Cardio: Rate: regular rate Rhythm: regular rhythm GI: Inspection: normal to inspection Back/Spine/Pelvis: Other: moderate sized hematoma over left ischium, no overlying skin changes, no signs or symptoms of active expansion, no signs or symptoms of infection Skin: General skin exam: normal color and no rashes or lesions noted Neuro: General: patient oriented x3 and CN's II-XI intact bilaterally Extrem: General: normal to inspection Results Labs 09/09/24 05:33 09/09/24 05:33 Labs: Abnormal lab results 09/08/24 09/08/24 09/08/24 Range/Units 11:57 16:46 19:12 RBC (4.6-6.20) M/mm3 Hgb (14.0-18.0) g/dL Hct (42.0-52.0) % MCHC (32-36) g/dl Sodium (137-145) mmol/L Glucose (65-110) mg/dL POC Capillary Glucose 166 H 183 H 160 H (65-105) mg/dl AST (17-59) U/L Alkaline Phosphatase (38-126) U/L Total Protein (6.3-8.2) g/dL Albumin (3.5-5.1) g/dL 09/09/24 09/09/24 Range/Units 05:33 07:41 RBC 3.41 L (4.6-6.20) M/mm3 Hgb 10.1 L (14.0-18.0) g/dL Hct 32.8 L (42.0-52.0) % MCHC 30.8 L (32-36) g/dl Sodium 136 L (137-145) mmol/L Glucose 122 H (65-110) mg/dL POC Capillary Glucose 128 H (65-105) mg/dl AST 15 L (17-59) U/L Alkaline Phosphatase 36 L (38-126) U/L Total Protein 6.0 L (6.3-8.2) g/dL Albumin 2.9 L (3.5-5.1) g/dL Diabetes panel 09/09/24 Range/Units 05:33 Sodium 136 L (137-145) mmol/L Potassium 4.6 (3.4-5.0) mmol/L Chloride 102 (98-107) mmol/L Carbon Dioxide 27 (22-30) mmol/L BUN 19 (9-20) mg/dL Creatinine 1.06 (0.7-1.3) mg/dL Glucose 122 H (65-110) mg/dL Calcium 8.6 (8.4-10.2) mg/dL AST 15 L (17-59) U/L ALT 13 (6-50) U/L Alkaline Phosphatase 36 L (38-126) U/L Total Protein 6.0 L (6.3-8.2) g/dL Albumin 2.9 L (3.5-5.1) g/dL Calcium panel 09/09/24 Range/Units 05:33 Calcium 8.6 (8.4-10.2) mg/dL Albumin 2.9 L (3.5-5.1) g/dL Pituitary panel 09/09/24 Range/Units 05:33 Sodium 136 L (137-145) mmol/L Potassium 4.6 (3.4-5.0) mmol/L Chloride 102 (98-107) mmol/L Carbon Dioxide 27 (22-30) mmol/L BUN 19 (9-20) mg/dL Creatinine 1.06 (0.7-1.3) mg/dL Glucose 122 H (65-110) mg/dL Calcium 8.6 (8.4-10.2) mg/dL Adrenal panel 09/09/24 Range/Units 05:33 Sodium 136 L (137-145) mmol/L Potassium 4.6 (3.4-5.0) mmol/L Chloride 102 (98-107) mmol/L Carbon Dioxide 27 (22-30) mmol/L BUN 19 (9-20) mg/dL Creatinine 1.06 (0.7-1.3) mg/dL Glucose 122 H (65-110) mg/dL Calcium 8.6 (8.4-10.2) mg/dL Total Bilirubin 1.1 (0.2-1.3) mg/dL AST 15 L (17-59) U/L ALT 13 (6-50) U/L Alkaline Phosphatase 36 L (38-126) U/L Total Protein 6.0 L (6.3-8.2) g/dL Albumin 2.9 L (3.5-5.1) g/dL All other labs normal. Imaging CT scan - pelvis: report reviewed and image reviewed
[2024-09-09 11:55] LABS: Glucose Point of Care 157 mg/dl (65-105)
[2024-09-09 17:02] LABS: Glucose Point of Care 143 mg/dl (65-105)
[2024-09-09] MEDS: RIVAROXABAN 15 MG TABLET PO (17:44)
[2024-09-09] MEDS: oxyBUTYnin CHLORIDE XL 5 MG TAB.ER.24 15 MG PO (20:48)
[2024-09-09] MEDS: ATORVASTATIN 40 MG TABLET PO (20:48)
[2024-09-09] MEDS: ACETAMINOPHEN 325 MG TABLET 650 MG PO (20:49)
[2024-09-09 21:36] LABS: Glucose Point of Care 146 mg/dl (65-105)
[2024-09-10] MEDS: ACETAMINOPHEN 325 MG TABLET 650 MG PO (01:33)
[2024-09-10 05:29] VITALS: BP 144/66; PULSE 98; RESP 16; TEMP 36.9; O2SAT 95
[2024-09-10 06:24] LABS: Hemoglobin 11.6 g/dL (14.0-18.0); Mean Corpuscular HGB Conc 30.5 g/dl (32-36); Mean Corpuscular Hemoglobin 29.5 pg (26-34); Mean Corpuscular Volume 96.7 fl (80-100); Mean Platelet Volume 9.2 fl (7.4-10.4); Platelet Count Result 463 k/mm3 (150-375); Red Blood Count 3.93 M/mm3 (4.6-6.20); White Blood Count 13.6 K/mm3 (4.5-10.0)
[2024-09-10 06:53] LABS: Alanine Aminotransferase 26 U/L (6-50); Albumin Level 3.7 g/dL (3.5-5.1); Alkaline Phosphatase 41 U/L (38-126); Anion Gap 16 mmol/L (4-12); Aspartate Amino Transferase 26 U/L (17-59); Bilirubin,Total 1.7 mg/dL (0.2-1.3); Blood Urea Nitrogen 18 mg/dL (9-20); Calcium 9.4 mg/dL (8.4-10.2); Carbon Dioxide 22 mmol/L (22-30); Chloride 102 mmol/L (98-107); Estimated CRCL calculation 46 ml/min; Estimated Glomerular Filt Rate 60; Glucose 141 mg/dL (65-110); Potassium 4.5 mmol/L (3.4-5.0); Sodium 140 mmol/L (137-145)
[2024-09-10 07:38] LABS: Glucose Point of Care 139 mg/dl (65-105)
[2024-09-10] MEDS: FLUTICASONE/SALMETEROL 115-21 MCG INHALER 1 PUFF 2 PUFF INHALATION ×2 (07:48→20:08)
[2024-09-10 07:49] VITALS: O2SAT 97
[2024-09-10 08:00] VITALS: PULSE 98; RESP 16; O2SAT 97
--- NOTE | 2024-09-10 08:43 | PM.PNORT ---
Progress Note: A&P Assessment and Plan (1) Left shoulder pain: Qualifiers: Chronicity: acute Qualified Code(s): M25.512 - Pain in left shoulder Code(s): M25.512 - Pain in left shoulder Status: Acute Assessment and Plan: History, exam and radiographs reviewed. Previous radiographs the left shoulder reveal proximal migration of the humeral head consistent with rotator cuff arthropathy. CT scan of the left shoulder reveals no evidence of fracture, dislocation. Moderate joint effusion. May continue current conservative treatment recommendations. Weightbearing as tolerated. Recommend activity as tolerated. Discussed condition, nature, etiology and course of natural history. Conservative treatment options reviewed as well as the risks benefits of each. Continue ice, apply topical pain patch. Range of motion exercises as tolerated. Limit narcotics due to confusion. (2) Hematoma: Code(s): T14.8XXA - Other injury of unspecified body region, initial encounter Status: Acute Assessment and Plan: Radiographs the left hip reveal no evidence of fracture, dislocation or acute abnormalities. Moderate swelling of the left hip noted. Tenderness to touch. Denies groin pain. Hematoma left hip. No fracture. Soft compartments. General surgery consult. No surgical intervention. Continue to monitor. Recommend PT and OT. Out of bed to chair. Pain control. Ice. We will continue to monitor. (3) Confusion: Code(s): R41.0 - Disorientation, unspecified Status: Acute Assessment and Plan: Acute onset confusion. HOLD narcotics. UA ordered. (4) Primary osteoarthritis involving multiple joints: Code(s): M15.0 - Primary generalized (osteo)arthritis Status: Acute (5) Fall: Code(s): W19.XXXA - Unspecified fall, initial encounter Status: Acute Assessment and Plan: PT and OT for evaluation. Possible rehab placement. Plan Reviewed history, exam, radiographs and current labs with attending MD and covering surgeon, Dr. Martel, who agrees with current plan as indicated above. No further recommendations from Dr. Martel at this time. Subjective Subjective Date/Time Seen: 09/10/24 08:43 Interval history: Patient with acute onset confusion, dizziness and hallucinations over the last two days. Still with complaints of left shoulder/left hip pain. General surgery consult for hematoma of the left hip reviewed. Review of Systems Review of Systems: All systems reviewed & are unremarkable except as noted in HPI and below Exam Const: General: in distress mild and uncomfortable HENMT: Head: normal to inspection, normocephalic and atraumatic Mouth: Yes moist mucous membranes Eyes: General: appearance normal, both eyes and all related structures Neck: Neck: normal visual inspection, full ROM and no lymphadenopathy Resp: Effort & Inspection: normal respiratory effort Auscultation: diminished lung sounds Cardio: Rate: regular rate Rhythm: regular rhythm GI: Inspection: normal to inspection GI Palp: Yes Soft to palpation and No Tenderness to palpation present (GI) Urinary Catheter: Urinary Catheter: urine cloudy and urine dark Back/Spine/Pelvis: Other: moderate sized hematoma over left hip, soft, no overlying skin changes, no signs or symptoms of active expansion, no signs or symptoms of infection Skin: General skin exam: normal color and no rashes or lesions noted Neuro: General: patient oriented x3 and CN's II-XI intact bilaterally Cognition (Neuro): normal cognition Speech: normal speech Extrem: Left upper extremity: shoulder/upper arm tenderness of the clavicle and of the proximal humerus, swelling of the proximal humerus, axillary nerve sensory function normal and abnormal ROM ( Range of motion exam limited due to patient's pain) held in an abnormal fashion in ADduction Left lower extremity: knee Details: normal to inspection, lower leg Details: tenderness and pitting edema Details: 2+; no abrasions, no lacerations and no ecchymosis, ankle Details: normal to inspection and foot Details: normal capillary refill and normal to inspection Psych: Mental Status: mental status grossly abnormal (confused ) Objective Data Vital Signs Vital Signs: Vital Signs - 24 hr 09/09/24 10:42 09/09/24 14:33 09/09/24 20:00 Temperature 36.4 C 36.4 C Pulse Rate 80 87 97 Respiratory Rate 20 16 18 Blood Pressure 138/52 L 131/76 Pulse Oximetry 98 97 95 Oxygen Delivery Room Air Fraction of Inspired Oxygen 09/09/24 20:58 09/09/24 21:01 09/09/24 21:07 Temperature 37.6 C Pulse Rate 81 81 97 Respiratory Rate 16 16 18 Blood Pressure 160/71 H Pulse Oximetry 96 95 Oxygen Delivery Room Air Fraction of Inspired Oxygen 09/10/24 05:29 09/10/24 07:49 Temperature 36.9 C Pulse Rate 98 Respiratory Rate 16 Blood Pressure 144/66 H Pulse Oximetry 95 97 Oxygen Delivery Room Air Fraction of Inspired Oxygen 21 Intake/Output Intake/Output: Intake & Output 09/07/24 09/08/24 09/09/24 09/10/24 23:59 23:59 23:59 23:59 Intake Total 677 670 437 250 Output Total 850 5600 700 Balance -173 -1780 -263 250 Meds/Results Medications: Active Medications Generic Name Dose Route Start Last Admin Trade Name Freq PRN Reason Stop Dose Admin Acetaminophen 650 mg 09/05/24 13:33 09/10/24 01:33 Acetaminophen 325 Mg Tablet PO 650 mg Q6H PRN Administration Mild Pain (1-3) or Fever Hydrocodone Bitart/Acetaminophen 1 tab 09/06/24 09:17 09/09/24 06:38 Hydrocodone/Acetaminophen (*Crx) 5-325 Mg Tablet PO 1 tab Q4HR PRN Administration Pain Rated 4-6 Hydrocodone Bitart/Acetaminophen 1 tab 09/06/24 09:16 09/07/24 21:44 Hydrocodone/Acetaminophen (*Crx) 10-325 Mg Tablet PO 1 tab Q4H PRN Administration Pain Rated 7-10 Albuterol 2 puff 09/05/24 21:16 Albuterol Sulfate (*Sp) Aerosol 1 Puff INHALATION Q4HRT PRN shortness of breath or wheezing Atorvastatin Calcium 40 mg 09/05/24 21:35 09/09/24 20:48 Atorvastatin 40 Mg Tablet PO 40 mg QHS MELISSA Administration Clopidogrel Bisulfate 75 mg 09/06/24 09:00 09/09/24 09:24 Clopidogrel Bisulfate 75 Mg Tablet BY MOUTH 75 mg DAILY MELISSA Administration Dextrose 12.5 gm 09/05/24 13:34 Dextrose 50% 25 Gm/50 Ml Syringe IV PUSH PRN PRN Hypoglycemia Protocol Diltiazem HCl 180 mg 09/06/24 09:00 09/09/24 09:24 Diltiazem Hcl Cd 180 Mg Cap.24hr PO 180 mg DAILY MELISSA Administration Ferrous Sulfate 325 mg 09/06/24 09:00 09/09/24 09:24 Ferrous Sulfate [address] PO 325 mg DAILY MELISSA Administration Finasteride 5 mg 09/06/24 09:00 09/09/24 09:24 Finasteride 5 Mg Tablet BY MOUTH 5 mg DAILY MELISSA Administration Fish Oil 1 gm 09/06/24 09:00 09/09/24 09:24 [place] 3 Polyunsat Fatty Acids 1 Gm Cap PO 1 gm QAM MELISSA Administration Glucagon 1 mg 09/05/24 13:34 Glucagon For Inj 1 Mg Vial IM PRN PRN Hypoglycemia Protocol Glucose 15 gm 09/05/24 13:34 Glucose Oral Gel 15 Gm Of Glucse In 37.5 Gm Tube PO PRN PRN Hypoglycemia Protocol Dextrose 1,000 mls @ 100 mls/hr 09/05/24 13:34 Dextrose 5% 1,000 Ml IVPB PRN PRN Hypoglycemia Protocol Insulin Aspart 2 - 5 units 09/05/24 17:00 09/09/24 17:04 Insulin Aspart (*Bkc) 100 Units/Ml SUB-Q Not Given TIDWM MELISSA Protocol Insulin Aspart 1 - 2 units 09/05/24 21:00 09/09/24 20:49 Insulin Aspart (*Bkc) 100 Units/Ml SUB-Q Not Given HS MELISSA Protocol Lidocaine 1 patch 09/07/24 09:00 09/09/24 09:24 Lidocaine 5% Patch TRANSDERM 1 patch DAILY MELISSA Administration Multivitamins/Minerals 1 tab 09/06/24 09:00 09/09/24 09:24 Multivitamins /C Lutein (Centrum Silver) Tablet *Bkc PO 1 tab DAILY MELISSA Administration Oxybutynin Chloride 15 mg 09/05/24 21:40 09/09/24 20:48 Oxybutynin Chloride Xl 5 Mg Tab.Er.24 PO 15 mg HS MELISSA Administration Polyethylene Glycol 17 gm 09/08/24 17:00 09/09/24 09:24 Polyethylene Glycol 3350 17 Gm Powd.Pack PO 17 gm QAM MELISSA Administration Rivaroxaban 15 mg 09/06/24 03:50 09/09/24 17:44 Rivaroxaban 15 Mg Tablet PO 15 mg DAILY@1700 MELISSA Administration Fluticasone/Salmeterol 2 puff 09/05/24 21:40 09/10/24 07:48 Fluticasone/Salmeterol 115-21 Mcg Inhaler 1 Puff INHALATION 2 puff Q12HRT MELISSA Administration Vitamin B Complex 1 cap 09/06/24 09:00 09/09/24 09:24 Vitamin B Complex Capsule PO 1 cap DAILY MELISSA Administration Radiology Results: ITS Impressions Cervical Spine CT 09/05/24 08:05 Impression: No fracture or subluxation of the cervical spine. Advanced degenerative spondylosis, as above. Partially imaged left pleural effusion. Hip/Pelvis X-Ray 09/05/24 08:25 Impression: No significant abnormality is seen. Shoulder X-Ray 09/05/24 08:25 Impression: High riding humeral head suggests underlying rotator cuff tear. No acute fracture or dislocation. Degenerative change, as above. Knee X-Ray 09/05/24 08:26 Impression: Unremarkable left knee radiographs. Chest X-Ray 09/05/24 13:28 Impression: Clear lungs. Ribs X-Ray 09/05/24 21:51 IMPRESSION: No acute displaced left sided rib fracture, as detailed above. Venous Doppler Study 09/05/24 23:44 IMPRESSION: Deep venous thrombosis of the right posterior tibial and peroneal veins. Unable to evaluate the left posterior tibial and peroneal veins secondary to patient intolerance. Knee CT 09/07/24 11:11 IMPRESSION: 1. No left knee joint effusion or acute osseous abnormality. Chest/Abdomen/Pelvis CT 09/07/24 11:15 IMPRESSION: Soft tissue hematoma adjacent to the left posterior superior iliac spine likely the cause of patient's left hip pain without underlying fracture. Significant glenohumeral and acromioclavicular joint effusion without underlying fracture deformity of the left shoulder, possibly the cause of patient's left shoulder discomfort. High riding humeral heads bilaterally suggesting bilateral rotator cuff injury. Otherwise: No cross-sectional imaging evidence to suggest the presence of acute traumatic injury within the chest, abdomen or pelvis. Specifically, no hollow or solid organ injury. In addition: Multiple pulmonary nodules detected bilaterally for which follow-up as per Fleischner guidelines is recommended (repeat CT in 3 months, PET/CT, or tissue sampling). Head CT 09/08/24 15:15 IMPRESSION: No acute intracranial findings. Labs Labs: Laboratory Results - last 24 hr 09/09/24 09/09/24 09/09/24 11:44 16:58 20:08 WBC RBC Hgb Hct MCV MCH MCHC RDW Plt Count MPV Sodium Potassium Chloride Carbon Dioxide Anion Gap BUN Creatinine Estim Creat Clear Calc Estimated GFR Glucose POC Capillary Glucose 157 H 143 H 146 H Calcium Total Bilirubin AST ALT Alkaline Phosphatase Total Protein Albumin 09/10/24 09/10/24 05:46 07:36 WBC 13.6 H RBC 3.93 L Hgb 11.6 L Hct 38.0 L MCV 96.7 MCH 29.5 MCHC 30.5 L RDW 14.0 Plt Count 463 H MPV 9.2 Sodium 140 Potassium 4.5 Chloride 102 Carbon Dioxide 22 Anion Gap 16 H BUN 18 Creatinine 1.16 Estim Creat Clear Calc 46 Estimated GFR 60 Glucose 141 H POC Capillary Glucose 139 H Calcium 9.4 Total Bilirubin 1.7 H AST 26 ALT 26 Alkaline Phosphatase 41 Total Protein 7.0 Albumin 3.7
[2024-09-10] MEDS: CLOPIDOGREL BISULFATE 75 MG TABLET BY MOUTH (09:26)
[2024-09-10] MEDS: MULTIVITAMINS /C LUTEIN (CENTRUM SILVER) TABLET *BKC 1 TAB PO (09:26)
[2024-09-10] MEDS: VITAMIN B COMPLEX CAPSULE 1 CAP PO (09:26)
[2024-09-10] MEDS: FINASTERIDE 5 MG TABLET BY MOUTH (09:27)
[2024-09-10] MEDS: dilTIAZem HCL CD 180 MG CAP.24HR PO (09:27)
[2024-09-10] MEDS: OMEGA 3 POLYUNSAT FATTY ACIDS 1 GM CAP PO (09:27)
[2024-09-10] MEDS: FERROUS SULFATE 325 MG TABLET DR PO (09:27)
[2024-09-10 11:37] LABS: Glucose Point of Care 181 mg/dl (65-105)
--- NOTE | 2024-09-10 11:39 | P.PNGS_ITS ---
Progress Note: A&P Assessment and Plan (1) Hematoma: Code(s): T14.8XXA - Other injury of unspecified body region, initial encounter Status: Acute Assessment and Plan: Remained stable on anticoagulation, continue with pain control and ice, no surgical indication at this time Plan I have discussed the patient's case and plan of care with Dr. Erazo Subjective Subjective Date/Time Seen: 09/10/24 11:39 Interval history: No acute changes. at the bedside. Continues to be confused. Patient had a brain MRI this morning with results pending. His only complaint of pain in his left lateral chest and shoulder. Exam Const: General: comfortable and no acute distress Orientation/conscious ness: confusion Extrem: Other: Hematoma over left hip extending posteriorly with ecchymosis of the overlying skin, no necrosis or breakdown of the overlying skin, no erythema or warmth Objective Data Vital Signs Vital Signs: Vital Signs - 24 hr 09/09/24 14:33 09/09/24 20:00 09/09/24 20:58 Temperature 97.6 F Pulse Rate 87 97 81 Respiratory Rate 16 18 16 Blood Pressure 131/76 Pulse Oximetry 97 95 Oxygen Delivery Room Air Fraction of Inspired Oxygen 21 09/09/24 21:01 09/09/24 21:07 09/10/24 05:29 Temperature 99.6 F 98.4 F Pulse Rate 81 97 98 Respiratory Rate 16 18 16 Blood Pressure 160/71 H 144/66 H Pulse Oximetry 96 95 95 Oxygen Delivery Room Air Fraction of Inspired Oxygen 09/10/24 07:49 09/10/24 08:00 Temperature Pulse Rate 98 Respiratory Rate 16 Blood Pressure Pulse Oximetry 97 97 Oxygen Delivery Room Air Room Air Fraction of Inspired Oxygen 21 21 Intake/Output Intake/Output: Intake & Output 09/07/24 09/08/24 09/09/24 09/10/24 23:59 23:59 23:59 23:59 Intake Total 677 670 437 250 Output Total 850 1150 700 Balance -173 -1780 -263 250 Meds/Results Medications: Active Medications Generic Name Dose Route Start Last Admin Trade Name Freq PRN Reason Stop Dose Admin Acetaminophen 650 mg 09/05/24 13:33 09/10/24 01:33 Acetaminophen 325 Mg Tablet PO 650 mg Q6H PRN Administration Mild Pain (1-3) or Fever Hydrocodone Bitart/Acetaminophen 1 tab 09/06/24 09:17 09/09/24 06:38 Hydrocodone/Acetaminophen (*Crx) 5-325 Mg Tablet PO 1 tab Q4HR PRN Administration Pain Rated 4-6 Hydrocodone Bitart/Acetaminophen 1 tab 09/06/24 09:16 09/07/24 21:44 Hydrocodone/Acetaminophen (*Crx) 10-325 Mg Tablet PO 1 tab Q4H PRN Administration Pain Rated 7-10 Albuterol 2 puff 09/05/24 21:16 Albuterol Sulfate (*Sp) Aerosol 1 Puff INHALATION Q4HRT PRN shortness of breath or wheezing Atorvastatin Calcium 40 mg 09/05/24 21:35 09/09/24 20:48 Atorvastatin 40 Mg Tablet PO 40 mg QHS MELISSA Administration Clopidogrel Bisulfate 75 mg 09/06/24 09:00 09/10/24 09:26 Clopidogrel Bisulfate 75 Mg Tablet BY MOUTH 75 mg DAILY MELISSA Administration Dextrose 12.5 gm 09/05/24 13:34 Dextrose 50% 25 Gm/50 Ml Syringe IV PUSH PRN PRN Hypoglycemia Protocol Diltiazem HCl 180 mg 09/06/24 09:00 09/10/24 09:27 Diltiazem Hcl Cd 180 Mg Cap.24hr PO 180 mg DAILY MELISSA Administration Ferrous Sulfate 325 mg 09/06/24 09:00 09/10/24 09:27 Ferrous Sulfate [address] PO 325 mg DAILY MELISSA Administration Finasteride 5 mg 09/06/24 09:00 09/10/24 09:27 Finasteride 5 Mg Tablet BY MOUTH 5 mg DAILY MELISSA Administration Fish Oil 1 gm 09/06/24 09:00 09/10/24 09:27 [place] 3 Polyunsat Fatty Acids 1 Gm Cap PO 1 gm QAM MELISSA Administration Glucagon 1 mg 09/05/24 13:34 Glucagon For Inj 1 Mg Vial IM PRN PRN Hypoglycemia Protocol Glucose 15 gm 09/05/24 13:34 Glucose Oral Gel 15 Gm Of Glucse In 37.5 Gm Tube PO PRN PRN Hypoglycemia Protocol Dextrose 1,000 mls @ 100 mls/hr 09/05/24 13:34 Dextrose 5% 1,000 Ml IVPB PRN PRN Hypoglycemia Protocol Insulin Aspart 2 - 5 units 09/05/24 17:00 09/10/24 09:26 Insulin Aspart (*Bkc) 100 Units/Ml SUB-Q Not Given TIDWM [facility] Protocol Insulin Aspart 1 - 2 units 09/05/24 21:00 09/09/24 20:49 Insulin Aspart (*Bkc) 100 Units/Ml SUB-Q Not Given HS [facility] Protocol Lidocaine 1 patch 09/07/24 09:00 09/09/24 09:24 Lidocaine 5% Patch TRANSDERM 1 patch DAILY MELISSA Administration Multivitamins/Minerals 1 tab 09/06/24 09:00 09/10/24 09:26 Multivitamins /C Lutein (Centrum Silver) Tablet *Bkc PO 1 tab DAILY MELISSA Administration Oxybutynin Chloride 15 mg 09/05/24 21:40 09/09/24 20:48 Oxybutynin Chloride Xl 5 Mg Tab.Er.24 PO 15 mg HS MELISSA Administration Polyethylene Glycol 17 gm 09/08/24 17:00 09/09/24 09:24 Polyethylene Glycol 3350 17 Gm Powd.Pack PO 17 gm QAM MELISSA Administration Rivaroxaban 15 mg 09/06/24 03:50 09/09/24 17:44 Rivaroxaban 15 Mg Tablet PO 15 mg DAILY@1700 MELISSA Administration Fluticasone/Salmeterol 2 puff 09/05/24 21:40 09/10/24 07:48 Fluticasone/Salmeterol 115-21 Mcg Inhaler 1 Puff INHALATION 2 puff Q12HRT MELISSA Administration Vitamin B Complex 1 cap 09/06/24 09:00 09/10/24 09:26 Vitamin B Complex Capsule PO 1 cap DAILY MELISSA Administration Radiology Results: ITS Impressions Cervical Spine CT 09/05/24 08:05 Impression: No fracture or subluxation of the cervical spine. Advanced degenerative spondylosis, as above. Partially imaged left pleural effusion. Hip/Pelvis X-Ray 09/05/24 08:25 Impression: No significant abnormality is seen. Shoulder X-Ray 09/05/24 08:25 Impression: High riding humeral head suggests underlying rotator cuff tear. No acute fracture or dislocation. Degenerative change, as above. Knee X-Ray 09/05/24 08:26 Impression: Unremarkable left knee radiographs. Chest X-Ray 09/05/24 13:28 Impression: Clear lungs. Ribs X-Ray 09/05/24 21:51 IMPRESSION: No acute displaced left sided rib fracture, as detailed above. Venous Doppler Study 09/05/24 23:44 IMPRESSION: Deep venous thrombosis of the right posterior tibial and peroneal veins. Unable to evaluate the left posterior tibial and peroneal veins secondary to patient intolerance. Knee CT 09/07/24 11:11 IMPRESSION: 1. No left knee joint effusion or acute osseous abnormality. Chest/Abdomen/Pelvis CT 09/07/24 11:15 IMPRESSION: Soft tissue hematoma adjacent to the left posterior superior iliac spine likely the cause of patient's left hip pain without underlying fracture. Significant glenohumeral and acromioclavicular joint effusion without underlying fracture deformity of the left shoulder, possibly the cause of patient's left shoulder discomfort. High riding humeral heads bilaterally suggesting bilateral rotator cuff injury. Otherwise: No cross-sectional imaging evidence to suggest the presence of acute traumatic injury within the chest, abdomen or pelvis. Specifically, no hollow or solid organ injury. In addition: Multiple pulmonary nodules detected bilaterally for which follow-up as per Fleischner guidelines is recommended (repeat CT in 3 months, PET/CT, or tissue sampling). Head CT 09/08/24 15:15 IMPRESSION: No acute intracranial findings. Labs Labs: Laboratory Results - last 24 hr 09/09/24 09/09/24 09/09/24 11:44 16:58 20:08 WBC RBC Hgb Hct MCV MCH MCHC RDW Plt Count MPV Sodium Potassium Chloride Carbon Dioxide Anion Gap BUN Creatinine Estim Creat Clear Calc Estimated GFR Glucose POC Capillary Glucose 157 H 143 H 146 H Calcium Total Bilirubin AST ALT Alkaline Phosphatase Total Protein Albumin 09/10/24 09/10/24 09/10/24 05:46 07:36 11:32 WBC 13.6 H RBC 3.93 L Hgb 11.6 L Hct 38.0 L MCV 96.7 MCH 29.5 MCHC 30.5 L RDW 14.0 Plt Count 463 H MPV 9.2 Sodium 140 Potassium 4.5 Chloride 102 Carbon Dioxide 22 Anion Gap 16 H BUN 18 Creatinine 1.16 Estim Creat Clear Calc 46 Estimated GFR 60 Glucose 141 H POC Capillary Glucose 139 H 181 H Calcium 9.4 Total Bilirubin 1.7 H AST 26 ALT 26 Alkaline Phosphatase 41 Total Protein 7.0 Albumin 3.7
[2024-09-10 12:32] LABS: Add Urine Microscopic? YES; Appearance Urine Turbid (Clear); Bacteria Urine Rare /hpf; Bilirubin Urine Negative (Negative); Blood Urine Trace (Negative); Color Urine Yellow (Yellow); Glucose Urine UA Negative (Negative); Ketones Urine 1+ mg/dL (Negative); Leukocyte Esterase Ur 3+ LEU/UL (Negative); Nitrate Urine Negative (Negative); Non Pathogenic Casts 0-2; Protein Urine 1+ mg/dL (Negative); RBC Urine 0-2 /hpf (0-2); Specific Grav Ur 1.014 (1.001-1.035); Squamous Epithelial Cell Urine None Seen /hpf (Few); WBC Urine >100 /hpf (0-3); pH Urine 6.5 (5.0-9.0)
--- NOTE | 2024-09-10 12:44 | PM.IMPN ---
Progress Note: A&P Assessment and Plan (1) Frequent falls: Code(s): R29.6 - Repeated falls Status: Acute Assessment and Plan: Interval history: 84-year-old male with paroxysmal atrial fibrillation on chronic anticoagulation, coronary artery disease, hypertension, hyperlipidemia, type 2 diabetes mellitus, chronic obstructive pulmonary disease, untreated obstructive sleep apnea, benign prostatic hyperplasia, chronic kidney disease, arthritis, and lumbar spinal stenosis with neurogenic claudication status post minimally invasive lumbar decompression at L3-L4 and L4-L5 earlier this month who presented to the emergency department from home for evaluation of left shoulder and hip pain after fall. He was walking down the stairs yesterday morning and when he got to the last step his legs gave out and he fell down onto his left side. He has had significant pain in his left shoulder and to lesser extent in the left hip since that time. He has had increasing pain in the shoulder since that time, to the point where he can barely even lifted up due to excruciating pain, and came in for evaluation. There was no head trauma or loss of consciousness in the fall and he denies antecedent symptoms prior to the fall. He voices frustration as he has been participating in PT since his surgery and he feels as though he is not improving. In the ED: Vital signs were stable on arrival. CTA of the head and cervical spine were without acute findings. X-rays of the left hip, pelvis, shoulder, and knee were also without acute findings. Physical therapy evaluated the patient in the ED and he did not do well. Care coordination was then contacted to see if he could be placed in a rehab facility however he requires preauthorization by his insurance and is being admitted in this setting.Venous Doppler ultrasounds of the lower extremities bilaterally ordered on admission resulted positive for DVT of right posterior tibial and peroneal veins. The patient is adamant he wants to continue Xarelto to treat this in spite of his bruising on admission as well as his fall risk and restarted at reduced dose of 15 mg p.o. q.h.s.. (2) Left shoulder pain: Qualifiers: Chronicity: acute Qualified Code(s): M25.512 - Pain in left shoulder Code(s): M25.512 - Pain in left shoulder Status: Acute (3) Chronic anticoagulation: Code(s): Z79.01 - rn long term care (current) use of anticoagulants Status: Acute (4) Atrial fibrillation: Qualifiers: Atrial fibrillation type: unspecified Qualified Code(s): I48.91 - Unspecified atrial fibrillation Code(s): I48.91 - Unspecified atrial fibrillation Status: Chronic (5) Essential hypertension: Code(s): I10 - Essential (primary) hypertension Status: Chronic (6) Type 2 diabetes mellitus: Qualifiers: Diabetes mellitus penitentiary insulin use: without termite control representative use Diabetes mellitus complication status: without complication Qualified Code(s): E11.9 - Type 2 diabetes mellitus without complications Code(s): E11.9 - Type 2 diabetes mellitus without complications Status: Acute (7) Hematoma: Code(s): T14.8XXA - Other injury of unspecified body region, initial encounter Status: Acute Plan Left shoulder/hip pain -status post minimally invasive lumbar decompression at L3-L4 and L4-L5 earlier this month -left knee x-ray unremarkable -left shoulder x-ray: High riding humeral head suggests underlying rotator cuff tear. No acute fracture or dislocation. -left hip x-ray no significant abnormality -rib x-ray no acute displaced left-sided rib fracture -continue PT OT -multimodal pain management -Ortho on board -case management on board Hematoma: Surgery consulted Patient wants to continue both Plavix and Xarelto Discussed with Dr. Noonan to discontinue Plavix CT chest/abdomen/pelvis:Soft tissue hematoma adjacent to the left posterior superior iliac spine likely the cause of patient's left hip pain without underlying fracture.Significant glenohumeral and acromioclavicular joint effusion without underlying fracture deformity of the left shoulder, possibly the cause of patient's left shoulder discomfort.High riding humeral heads bilaterally suggesting bilateral rotator cuff injury. Otherwise:No cross-sectional imaging evidence to suggest the presence of acute traumatic injury within the chest, abdomen or pelvis. Specifically, no hollow or solid organ injury.In addition:Multiple pulmonary nodules detected bilaterally for which follow-up as per Fleischner guidelines is recommended (repeat CT in 3 months, PET/CT, or tissue sampling). DVT -possibly be provoked by sedentary lifestyle -Venous Doppler Deep venous thrombosis of the right posterior tibial and peroneal veins. Unable to evaluate the left posterior tibial and peroneal veins secondary to patient intolerance. -Xarelto 15 mg reduced due to recent fall which resulted in bruising -monitor H&H and platelets -no evidence of cancer -hemodynamically stable -will monitor vitals CVA MRI Brain:1. 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 2. Deep white matter ischemic changes with mild brain atrophy. -Echo pending -bedside swallow shows no evidence of aspiration -Xarelto and statin -LDL goal less than 70 -if neurology recommends conservative management -Patient needs to follow up with vascular surgeon if needed after the carotid ultrasound result -permissive hypertension less than 220/120 if no thrombolytics. -neurology consulted awaiting official recommendation -speech and swallow evaluation -PT/OT eval -Bedside swallow eval Subjective Date/time seen: 09/10/24 12:44 Interval history: Brain MRI shows 1. 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 Clinical correlation and follow-up advised.2. Deep white matter ischemic changes with mild brain atrophy. Discussed with the neurologist who reports possibly it is an incidental finding. Neurologist evaluated the patient and neurological deficits. I discussed with the patient due to the concerns of continuing both Plavix and Xarelto in spite of multiple bruises/a hematoma. He agrees to discontinue if is ok with that. I spoke to , who will evaluate the patient today/tomorrow and appreciate his recommendation. Patient reports of having 2 cardiac stents the latest one was placed in [facility] in 2022. Ordered carotid ultrasound and echocardiogram with bubble study Review of Systems Review of Systems: 12 systems were reviewed and are negative except for as per HPI. Exam Narrative: General: Chronically ill-appearing male in the semi-[place] position in bed in no acute distress. Weight: 92.8 kg. BMI: 28.5. HEENT: PERRL, EOMI. Sclera anicteric. Oral mucosa moist. Neck: Supple. Respiratory: Respirations are nonlabored he is speaking in full sentences. Cardiovascular: Regular rate and rhythm with S1-S2. Systolic murmur at the left lower sternal border and apex. Gastrointestinal: Abdomen is soft, obese, nontender, and nondistended with positive bowel sounds. Skin: Warm and dry. Scattered bruising on the upper and lower extremities. There is a bruise with underlying hematoma on the left medial calf. Skin tears on the arms, worse on the left. Extremities: No cyanosis or clubbing. Pitting edema of the lower legs. Peripheral pulses palpable. Neurological: Alert. Cranial nerves 2-12 are grossly intact. No gross focal deficits to casual conversation. Musculoskeletal: His bit tender to palpation over the left flank. He is exquisitely tender to even light palpation over the anterior left shoulder and is hesitant to move that arm due to pain. Psychiatric: Pleasant and cooperative with appropriate mood and affect. Objective Data Vital Signs Vital Signs: Vital Signs - 24 hr 09/09/24 14:33 09/09/24 20:00 09/09/24 20:58 Temperature 97.6 F Pulse Rate 87 97 81 Respiratory Rate 16 18 16 Blood Pressure 131/76 Pulse Oximetry 97 95 Oxygen Delivery Room Air Fraction of Inspired Oxygen 21 09/09/24 21:01 09/09/24 21:07 09/10/24 05:29 Temperature 99.6 F 98.4 F Pulse Rate 81 97 98 Respiratory Rate 16 18 16 Blood Pressure 160/71 H 144/66 H Pulse Oximetry 96 95 95 Oxygen Delivery Room Air Fraction of Inspired Oxygen 09/10/24 07:49 09/10/24 08:00 Temperature Pulse Rate 98 Respiratory Rate 16 Blood Pressure Pulse Oximetry 97 97 Oxygen Delivery Room Air Room Air Fraction of Inspired Oxygen 21 21 Intake/Output Intake/Output: Intake & Output 09/07/24 09/08/24 09/09/24 09/10/24 23:59 23:59 23:59 23:59 Intake Total 677 670 437 250 Output Total 850 2450 700 Balance -173 -1780 -263 250 Meds/Results Medications: Active Medications Generic Name Dose Route Start Last Admin Trade Name Freq PRN Reason Stop Dose Admin Acetaminophen 650 mg 09/05/24 13:33 09/10/24 01:33 Acetaminophen 325 Mg Tablet PO 650 mg Q6H PRN Administration Mild Pain (1-3) or Fever Hydrocodone Bitart/Acetaminophen 1 tab 09/06/24 09:17 09/09/24 06:38 Hydrocodone/Acetaminophen (*Crx) 5-325 Mg Tablet PO 1 tab Q4HR PRN Administration Pain Rated 4-6 Hydrocodone Bitart/Acetaminophen 1 tab 09/06/24 09:16 09/07/24 21:44 Hydrocodone/Acetaminophen (*Crx) 10-325 Mg Tablet PO 1 tab Q4H PRN Administration Pain Rated 7-10 Albuterol 2 puff 09/05/24 21:16 Albuterol Sulfate (*Sp) Aerosol 1 Puff INHALATION Q4HRT PRN shortness of breath or wheezing Atorvastatin Calcium 40 mg 09/05/24 21:35 09/09/24 20:48 Atorvastatin 40 Mg Tablet PO 40 mg QHS MELISSA Administration Clopidogrel Bisulfate 75 mg 09/06/24 09:00 09/10/24 09:26 Clopidogrel Bisulfate 75 Mg Tablet BY MOUTH 75 mg DAILY MELISSA Administration Dextrose 12.5 gm 09/05/24 13:34 Dextrose 50% 25 Gm/50 Ml Syringe IV PUSH PRN PRN Hypoglycemia Protocol Diltiazem HCl 180 mg 09/06/24 09:00 09/10/24 09:27 Diltiazem Hcl Cd 180 Mg Cap.24hr PO 180 mg DAILY MELISSA Administration Ferrous Sulfate 325 mg 09/06/24 09:00 09/10/24 09:27 Ferrous Sulfate [address] PO 325 mg DAILY MELISSA Administration Finasteride 5 mg 09/06/24 09:00 09/10/24 09:27 Finasteride 5 Mg Tablet BY MOUTH 5 mg DAILY MELISSA Administration Fish Oil 1 gm 09/06/24 09:00 09/10/24 09:27 [place] 3 Polyunsat Fatty Acids 1 Gm Cap PO 1 gm QAM MELISSA Administration Glucagon 1 mg 09/05/24 13:34 Glucagon For Inj 1 Mg Vial IM PRN PRN Hypoglycemia Protocol Glucose 15 gm 09/05/24 13:34 Glucose Oral Gel 15 Gm Of Glucse In 37.5 Gm Tube PO PRN PRN Hypoglycemia Protocol Dextrose 1,000 mls @ 100 mls/hr 09/05/24 13:34 Dextrose 5% 1,000 Ml IVPB PRN PRN Hypoglycemia Protocol Insulin Aspart 2 - 5 units 09/05/24 17:00 09/10/24 12:19 Insulin Aspart (*Bkc) 100 Units/Ml SUB-Q Not Given TIDWM [facility] Protocol Insulin Aspart 1 - 2 units 09/05/24 21:00 09/09/24 20:49 Insulin Aspart (*Bkc) 100 Units/Ml SUB-Q Not Given HS [facility] Protocol Lidocaine 1 patch 09/07/24 09:00 09/10/24 12:19 Lidocaine 5% Patch TRANSDERM Not Given DAILY [facility] Multivitamins/Minerals 1 tab 09/06/24 09:00 09/10/24 09:26 Multivitamins /C Lutein (Centrum Silver) Tablet *Bkc PO 1 tab DAILY MELISSA Administration Oxybutynin Chloride 15 mg 09/05/24 21:40 09/09/24 20:48 Oxybutynin Chloride Xl 5 Mg Tab.Er.24 PO 15 mg HS MELISSA Administration Polyethylene Glycol 17 gm 09/08/24 17:00 09/10/24 12:19 Polyethylene Glycol 3350 17 Gm Powd.Pack PO Not Given QAM MELISSA Rivaroxaban 15 mg 09/06/24 03:50 09/09/24 17:44 Rivaroxaban 15 Mg Tablet PO 15 mg DAILY@1700 MELISSA Administration Fluticasone/Salmeterol 2 puff 09/05/24 21:40 09/10/24 07:48 Fluticasone/Salmeterol 115-21 Mcg Inhaler 1 Puff INHALATION 2 puff Q12HRT MELISSA Administration Vitamin B Complex 1 cap 09/06/24 09:00 09/10/24 09:26 Vitamin B Complex Capsule PO 1 cap DAILY MELISSA Administration Radiology Results: ITS Impressions Cervical Spine CT 09/05/24 08:05 Impression: No fracture or subluxation of the cervical spine. Advanced degenerative spondylosis, as above. Partially imaged left pleural effusion. Hip/Pelvis X-Ray 09/05/24 08:25 Impression: No significant abnormality is seen. Shoulder X-Ray 09/05/24 08:25 Impression: High riding humeral head suggests underlying rotator cuff tear. No acute fracture or dislocation. Degenerative change, as above. Knee X-Ray 09/05/24 08:26 Impression: Unremarkable left knee radiographs. Chest X-Ray 09/05/24 13:28 Impression: Clear lungs. Ribs X-Ray 09/05/24 21:51 IMPRESSION: No acute displaced left sided rib fracture, as detailed above. Venous Doppler Study 09/05/24 23:44 IMPRESSION: Deep venous thrombosis of the right posterior tibial and peroneal veins. Unable to evaluate the left posterior tibial and peroneal veins secondary to patient intolerance. Knee CT 09/07/24 11:11 IMPRESSION: 1. No left knee joint effusion or acute osseous abnormality. Chest/Abdomen/Pelvis CT 09/07/24 11:15 IMPRESSION: Soft tissue hematoma adjacent to the left posterior superior iliac spine likely the cause of patient's left hip pain without underlying fracture. Significant glenohumeral and acromioclavicular joint effusion without underlying fracture deformity of the left shoulder, possibly the cause of patient's left shoulder discomfort. High riding humeral heads bilaterally suggesting bilateral rotator cuff injury. Otherwise: No cross-sectional imaging evidence to suggest the presence of acute traumatic injury within the chest, abdomen or pelvis. Specifically, no hollow or solid organ injury. In addition: Multiple pulmonary nodules detected bilaterally for which follow-up as per Fleischner guidelines is recommended (repeat CT in 3 months, PET/CT, or tissue sampling). Head CT 09/08/24 15:15 IMPRESSION: No acute intracranial findings. Brain MRI 09/10/24 11:24 IMPRESSION: 1. 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 Clinical correlation and follow-up advised. 2. Deep white matter ischemic changes with mild brain atrophy. Labs Labs: Laboratory Results - last 24 hr 09/09/24 09/09/24 09/10/24 16:58 20:08 05:46 WBC 13.6 H RBC 3.93 L Hgb 11.6 L Hct 38.0 L MCV 96.7 MCH 29.5 MCHC 30.5 L RDW 14.0 Plt Count 463 H MPV 9.2 Sodium 140 Potassium 4.5 Chloride 102 Carbon Dioxide 22 Anion Gap 16 H BUN 18 Creatinine 1.16 Estim Creat Clear Calc 46 Estimated GFR 60 Glucose 141 H POC Capillary Glucose 143 H 146 H Calcium 9.4 Total Bilirubin 1.7 H AST 26 ALT 26 Alkaline Phosphatase 41 Total Protein 7.0 Albumin 3.7 09/10/24 09/10/24 07:36 11:32 WBC RBC Hgb Hct MCV MCH MCHC RDW Plt Count MPV Sodium Potassium Chloride Carbon Dioxide Anion Gap BUN Creatinine Estim Creat Clear Calc Estimated GFR Glucose POC Capillary Glucose 139 H 181 H Calcium Total Bilirubin AST ALT Alkaline Phosphatase Total Protein Albumin Quality VTE Prophylaxis VTE prophylaxis: mechanical ordered Hospitalist MIPS Advance Care Plan I have confirmed that the patient's Advanced Care Plan is present, code status is documented, or surrogate decision maker is listed in patient medical record.: Yes Medication Reconciliation I have utilized all available resources to obtain, update and review the patients current medications (includes all prescriptions, OTC, herbals, cannabis, and nutritional supplements).: Yes
[2024-09-10 14:00] VITALS: BP 137/63; PULSE 86; RESP 20; TEMP 36.7; O2SAT 98
[2024-09-10 16:30] LABS: Glucose Point of Care 144 mg/dl (65-105)
--- NOTE | 2024-09-10 16:39 | PM.CNCAR ---
Assessment and Plan Assessment and plan (1) Atrial fibrillation: Qualifiers: Atrial fibrillation type: unspecified Qualified Code(s): I48.91 - Unspecified atrial fibrillation Code(s): I48.91 - Unspecified atrial fibrillation Status: Chronic Assessment and Plan: [id number] 6. Rate is controlled. Was on Xarelto but on hold due to having lumbar surgery. Back on it again for anticoagulation for atrial fibrillation and distal vein DVT. (2) CAD (coronary artery disease): Qualifiers: Coronary Disease-Associated Artery/Lesion type: unspecified vessel or lesion type [place] vs. transplanted heart: [place] heart Associated angina: without angina Qualified Code(s): I25.10 - Atherosclerotic heart disease of [place] coronary artery without angina pectoris Code(s): I25.10 - Atherosclerotic heart disease of [place] coronary artery without angina pectoris Status: Acute Assessment and Plan: May stop Plavix as stenting was over a year ago. (3) Hyperlipidemia: Qualifiers: Hyperlipidemia type: unspecified Qualified Code(s): E78.5 - Hyperlipidemia, unspecified Code(s): E78.5 - Hyperlipidemia, unspecified Status: Acute Assessment and Plan: On Atorvastatin. (4) Essential hypertension: Code(s): I10 - Essential (primary) hypertension Status: Chronic Assessment and Plan: Stable. (5) Deep vein thrombosis (DVT) of right lower extremity: Code(s): I82.401 - Acute embolism and thrombosis of unspecified deep veins of right lower extremity Status: Acute Assessment and Plan: Distal right leg veins of PT and peroneal vein. On Xarelto. History of Present Illness History of Present Illness Consult date/time: 09/10/24 16:39 Reason For Visit: FALLS, UNABLE TO AMBULATE WITHOUT VALUER, Narrative: 84 yr old man who is my regular cardiology patient presents to ER on 09/05/24 after a fall. He has a history of atrial fibrillation, CAD, ANEUDY (followed by Marco Horton), dyslipidemia, DM, covid infection on 06/05/20 and 12/10/21. is at bedside. He is confused. He did have minimally invasive lumbar surgery. He was walking down steps when his legs got weak and he fell injuring his left shoulder and left hip. He had Xarelto on hold due to having lumbar surgery and restarted since he has DVT of right leg distal veins and now has stroke. Reports he is limited at walking 1/2 block due to back pain first and knee and hip pains then CASTILLO. Denies chest pain, sob, orthopnea, PND, dizziness, palpitations. Cardiovascular Procedures Air Quality Specialist:: September 2023 Dr. Moreau at [facility], [place]: PCI to mid RCA. 09/01/23 Dr. Moreau [facility] at [facility], [place]: IFR of prox-mid LAD is OK 0.94 with 30-40% stenosis and tapers distally, mid-distal LCx 80% stenosis, RCA 90% mid stenosis; PCI with stent to mid-distal LCx. Needs staged PCI of RCA. 04/14/23 Dr. Elaine [facility]: LAD prox 80%, mid 70%, LCx distal 90%, RCA mid 90%, RPDA mod tandem 60-70%. Recommend CABG. Echo/MUGA:: 01/20/22 Echo: EF 65-70%, mild LVH, diastolic dysfunction (E/e' 14), RV hypokinesis based on TAPSE 1.2 cm, mod LAE, mild KEYANA, mild-mod MR/TR. 07/20/16 Echo: EF 60-65%, grade I diastolic dysfunction (E/e' 12), mod LAE, mild KEYANA, trace TR. Electrophysiology:: 08/08/24 EKG: Atrial fibrillation at 66 bpm, LAD, low voltage in limb leads. 03/10/22 EKG: Atrial fibrillation at 84 bpm, LAFB. 11/25/21 EKG: Atrial fibrillation at 100 bpm, frequent PVC's, LAFB. 06/10/20 EKG: Sinus rhythm, LAFB. Stress Tests:: 03/24/23 Lexiscan myoview: Abnormal with moderate LCx distribution ischemia and moderate LAD fixed defects. 12/09/22 CXR: Suspected non-displaced fracture of left 10th and 11th ribs. 06/17/22 MRI brain: Stable 8 mm cavernoma in right occipital lobe. Stable mod chronic microvascular ischemic changes. 08/04/20 CXR: Improvement of multifocal bilateral pneumonia. 06/26/21 PFT: Mild obstruction and mild restrictive abnormality. Review of Systems Review of Systems: All systems reviewed & are unremarkable except as noted in HPI and below Constitutional: Constitutional: Reports as per HPI, Denies chills and Denies fever(s) Cardiovascular: Cardiovascular: Reports as per HPI and Denies chest pain Respiratory: Respiratory: Reports as per HPI and Denies dyspnea Gastrointestinal: Gastrointestinal: Reports as per HPI and Denies abdominal pain Genitourinary: Genitourinary: Reports as per HPI and Denies dysuria Musculoskeletal: Musculoskeletal: Reports as per HPI and Reports arthralgias Neurologic: Reports as per HPI, Denies dizziness and Denies syncope [facility] Past Medical History Medical History (Updated 09/10/24 @ 16:47 by Colby Noonan DO) Confusion Chronic kidney disease, stage 3 Chronic anticoagulation Cerebral cavernoma Obstructive sleep apnea intolerant to CPAP Lumbosacral stenosis with neurogenic claudication with epidural steroid injection L4-L5 December 2022 Mild cognitive impairment COPD with asthma Lumbosacral radiculopathy Claudication of both lower extremities Postlaminectomy syndrome Lumbosacral spondylosis Long COVID Atrial fibrillation Benign non-nodular prostatic hyperplasia without lower urinary tract symptoms Essential hypertension 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 Surgical History Surgical History History of lumbar discectomy (08/2024) minimally invasive at L3-L4 and L4-L5 History of lumbar fusion History of cardiac catheterization (03/2023) multivessel coronary disease to 80% stenosis of the proximal LAD 70% stenosis midportion of LAD very small diagonal branch, proximal and mid left circ have luminal irregularities 90% long stenosis left circumflex, small caliber obtuse marginal branch with mild diffuse disease obtuse marginal 2 has a moderate stenosis of the midportion right coronary artery is dominant vessel with 90% stenosis of the midportion and mid RPDA has 2 tandem stenosis is of 60-70% the patient was referred for CV surgery however the patient then underwent staged procedure at [facility] with PCI and stent to mid distal left circ and in September 2023 he had a PCI to the mid RCA History of cataract surgery Family History Family History Sibling Patient's sister is in good health Patient's brother is in good health Father Heart disease Acute myocardial infarction Telangiectasia Itord-Tzcgv-Bluls disease Angiodysplasia AVM (arteriovenous malformation) Mother Acute myocardial infarction Social History Social History Social History: Surrogate medical decision maker: Genoveva Villa, spouse. Code status: DO NOT RESUSCITATE. Smoking packs per day: 0.5 Smoking cigarettes per day: 10.0 Years smoked: 2 Smoking pack-years: 1.00 Smoking status: Former smoker Second hand tobacco smoke exposure: No Alcohol intake: never Substance use: never Substance use type: does not use Do You Feel Safe in your Home?: Yes Lack of Transportation: No Lack of Food: Never True Current Housing: I Have Housing Concerned About Future Housing: No Difficulty Paying Gas/Electric Bills: No Difficulty Paying for Meds: No Currently Unemployed: No Education: Grade School Difficulty w/ Childcare or Family Care: No Living arrangements: with family Additional living arrangements comments: Lives with in [place]. 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 Spiritual care concerns: No Meds Home Medications and Allergies Home Medications ?Medication ?Instructions ?Recorded ?Confirmed ?Type lancets (Lancets, Super Thin) #100 ea 01/30/20 09/05/24 Rx blood sugar diagnostic (Contour #100 ea 03/19/20 09/05/24 Rx Next Test Strips) multivit with minerals-iron 18 1 tablet PO DAILY 12/10/21 09/05/24 History mg-folic ac 400 mcg-vit K 25 mcg tablet (Adults Multivitamin) vitamin B complex (B 1 tablet PO DAILY 12/10/21 09/05/24 History Complex-Vitamin B12 tablet) atorvastatin 40 mg tablet 40 mg PO QPM 10/21/23 09/05/24 History finasteride 5 mg tablet See Rx Instructions .Route 01/02/24 09/05/24 Rx .COMPLEX #90 tabs omega-3 fatty acids 1,000 mg PO DAILY 04/09/24 09/05/24 History diltiazem HCl 180 mg 180 mg PO Q24H 05/02/24 09/05/24 History capsule,extended release 24 hr fluticasone 250 mcg-salmeterol 50 See Rx Instructions .Route 05/25/24 09/05/24 Rx mcg/dose blistr powdr for .COMPLEX #180 ea inhalation (Wixela Inhub) clopidogrel 75 mg tablet See Rx Instructions .Route 05/28/24 09/05/24 Rx .COMPLEX #90 tabs oxybutynin chloride 15 mg 15 mg PO HS #90 tabs 05/28/24 09/05/24 Rx tablet,extended release 24 hr metformin 1,000 mg tablet 1,000 mg PO DAILY #180 tabs 07/13/24 09/05/24 Rx albuterol sulfate 90 mcg/actuation 2 puff inhalation Q4H PRN 07/19/24 09/05/24 Rx aerosol inhaler (ProAir HFA) shortness of breath or wheezing #8.5 grams ferrous sulfate 325 mg (65 mg 325 mg PO DAILY #90 tabs 07/19/24 09/05/24 Rx iron) tablet rivaroxaban 20 mg tablet (Xarelto) 20 mg PO QPM #30 tabs 08/15/24 09/05/24 Rx Allergies Allergy/AdvReac Type Severity Reaction Status Date / Time Opioids - Morphine Analogues AdvReac Intermediate Nausea and Verified 09/05/24 18:07 Vomiting Vital Signs Vital Signs - 24 hr 09/09/24 20:00 09/09/24 20:58 09/09/24 21:01 Temperature Pulse Rate 97 81 81 Respiratory Rate 18 16 16 Blood Pressure Pulse Oximetry 95 96 Oxygen Delivery Room Air Room Air Fraction of Inspired Oxygen 21 21 09/09/24 21:07 09/10/24 05:29 09/10/24 07:49 Temperature 99.6 F 98.4 F Pulse Rate 97 98 Respiratory Rate 18 16 Blood Pressure 160/71 H 144/66 H Pulse Oximetry 95 95 97 Oxygen Delivery Room Air Fraction of Inspired Oxygen 21 09/10/24 08:00 09/10/24 14:00 Temperature 98.1 F Pulse Rate 98 86 Respiratory Rate 16 20 Blood Pressure 137/63 Pulse Oximetry 97 98 Oxygen Delivery Room Air Fraction of Inspired Oxygen 21 Exam Const: General: cooperative, healthy appearing and comfortable Resp: Auscultation: clear to auscultation bilaterally, no crackles, no rales, no rhonchi and no wheezes Cardio: Rate: regular rate Rhythm: abnormal rhythm Heart sounds: no murmurs Peripheral pulses: dorsalis pedis present GI: GI Palp: No abdominal tenderness and Yes Soft to palpation Neuro: General: oriented to person, oriented to place and oriented to time Extrem: Right lower extremity: edema Left lower extremity: edema Other: Mild edema of both legs Results Labs and Meds 09/10/24 05:46 09/10/24 05:46 Lab results: Cardiac Enzymes 09/10/24 Range/Units 05:46 AST 26 (17-59) U/L CBC 09/10/24 Range/Units 05:46 WBC 13.6 H (4.5-10.0) K/mm3 RBC 3.93 L (4.6-6.20) M/mm3 Hgb 11.6 L (14.0-18.0) g/dL Hct 38.0 L (42.0-52.0) % Plt Count 463 H (150-375) k/mm3 Comprehensive Metabolic Panel 09/10/24 Range/Units 05:46 Sodium 140 (137-145) mmol/L Potassium 4.5 (3.4-5.0) mmol/L Chloride 102 (98-107) mmol/L Carbon Dioxide 22 (22-30) mmol/L BUN 18 (9-20) mg/dL Creatinine 1.16 (0.7-1.3) mg/dL Glucose 141 H (65-110) mg/dL Calcium 9.4 (8.4-10.2) mg/dL AST 26 (17-59) U/L ALT 26 (6-50) U/L Alkaline Phosphatase 41 (38-126) U/L Total Protein 7.0 (6.3-8.2) g/dL Albumin 3.7 (3.5-5.1) g/dL Intake and Output 09/10/24 09/10/24 09/10/24 07:59 15:59 23:59 Intake Total 250 240 Balance 250 240 Intake: Oral 250 240 Other: # Unmeasured Voids 0
--- NOTE | 2024-09-10 16:46 | WPDNEURCNPN ---
Assessment and Plan Assessment and plan (1) Infarction of right basal ganglia: Code(s): I63.9 - Cerebral infarction, unspecified Status: Acute Assessment and Plan: this appears to be a coincidental finding since I do not see any weakness in the left side of the body. I reviewed MRI of the brain and discuss this with hospitalist physician. I would suggest a carotid Doppler study. Patient is on anticoagulation and he is already on atorvastatin 40 mg a day. (2) Atrial fibrillation: Qualifiers: Atrial fibrillation type: unspecified Qualified Code(s): I48.91 - Unspecified atrial fibrillation Code(s): I48.91 - Unspecified atrial fibrillation Status: Chronic Plan Should follow the results of carotid Doppler study and lipid profile. Patient does not have any deficit it also there is no asymmetry the visual axis at this time. The patient has numerous other medical problems are being addressed by the hospitalist team. Consult date: 09/10/24 HPI: Christian Villa I is a 84 year old male With history of diabetes mellitus, paroxysmal atrial fibrillation on chronic anticoagulation, deep vein thrombosis, coronary artery disease, chronic obstructive pulmonary disease, untreated obstructive sleep apnea has been complaining of diplopia. He underwent MRI of the brain that shows a possible acute stroke in the right basal ganglia for which I have been asked to evaluate patient's was present at the time of the evaluation. He has not had any paralysis or weakness in left or right side of the body. Patient still states that he has diplopia. He has had a fall and according to his when he fell he was complaining of weakness of the left side of the body but that did not last very long. Review of Systems Review of Systems: All systems reviewed & are unremarkable except as noted in HPI and below [facility] Past Medical History Medical History (Updated 09/10/24 @ 16:55 by Ventura Wright MD) Infarction of right basal ganglia Confusion Chronic kidney disease, stage 3 Chronic anticoagulation Cerebral cavernoma Obstructive sleep apnea intolerant to CPAP Lumbosacral stenosis with neurogenic claudication with epidural steroid injection L4-L5 December 2022 Mild cognitive impairment COPD with asthma Lumbosacral radiculopathy Claudication of both lower extremities Postlaminectomy syndrome Lumbosacral spondylosis Long COVID Atrial fibrillation Benign non-nodular prostatic hyperplasia without lower urinary tract symptoms Essential hypertension 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 Surgical History Surgical History History of lumbar discectomy (08/2024) minimally invasive at L3-L4 and L4-L5 History of lumbar fusion History of cardiac catheterization (03/2023) multivessel coronary disease to 80% stenosis of the proximal LAD 70% stenosis midportion of LAD very small diagonal branch, proximal and mid left circ have luminal irregularities 90% long stenosis left circumflex, small caliber obtuse marginal branch with mild diffuse disease obtuse marginal 2 has a moderate stenosis of the midportion right coronary artery is dominant vessel with 90% stenosis of the midportion and mid RPDA has 2 tandem stenosis is of 60-70% the patient was referred for CV surgery however the patient then underwent staged procedure at [facility] with PCI and stent to mid distal left circ and in September 2023 he had a PCI to the mid RCA History of cataract surgery Family History Family History Sibling Patient's sister is in good health Patient's brother is in good health Father Heart disease Acute myocardial infarction Telangiectasia Hdsts-Agarj-Olago disease Angiodysplasia AVM (arteriovenous malformation) Mother Acute myocardial infarction Social History Social History Social History: Surrogate medical decision maker: Genoveva Villa, spouse. Code status: DO NOT RESUSCITATE. Smoking packs per day: 0.5 Smoking cigarettes per day: 10.0 Years smoked: 2 Smoking pack-years: 1.00 Smoking status: Former smoker Second hand tobacco smoke exposure: No Alcohol intake: never Substance use: never Substance use type: does not use Do You Feel Safe in your Home?: Yes Lack of Transportation: No Lack of Food: Never True Current Housing: I Have Housing Concerned About Future Housing: No Difficulty Paying Gas/Electric Bills: No Difficulty Paying for Meds: No Currently Unemployed: No Education: Grade School Difficulty w/ Childcare or Family Care: No Living arrangements: with family Additional living arrangements comments: Lives with in [place]. 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 Spiritual care concerns: No Meds Home Medications and Allergies Home Medications ?Medication ?Instructions ?Recorded ?Confirmed ?Type lancets (Lancets, Super Thin) #100 ea 01/30/20 09/05/24 Rx blood sugar diagnostic (Contour #100 ea 03/19/20 09/05/24 Rx Next Test Strips) multivit with minerals-iron 18 1 tablet PO DAILY 12/10/21 09/05/24 History mg-folic ac 400 mcg-vit K 25 mcg tablet (Adults Multivitamin) vitamin B complex (B 1 tablet PO DAILY 12/10/21 09/05/24 History Complex-Vitamin B12 tablet) atorvastatin 40 mg tablet 40 mg PO QPM 10/21/23 09/05/24 History finasteride 5 mg tablet See Rx Instructions .Route 01/02/24 09/05/24 Rx .COMPLEX #90 tabs omega-3 fatty acids 1,000 mg PO DAILY 04/09/24 09/05/24 History diltiazem HCl 180 mg 180 mg PO Q24H 05/02/24 09/05/24 History capsule,extended release 24 hr fluticasone 250 mcg-salmeterol 50 See Rx Instructions .Route 05/25/24 09/05/24 Rx mcg/dose blistr powdr for .COMPLEX #180 ea inhalation (Wixela Inhub) clopidogrel 75 mg tablet See Rx Instructions .Route 05/28/24 09/05/24 Rx .COMPLEX #90 tabs oxybutynin chloride 15 mg 15 mg PO HS #90 tabs 05/28/24 09/05/24 Rx tablet,extended release 24 hr metformin 1,000 mg tablet 1,000 mg PO DAILY #180 tabs 07/13/24 09/05/24 Rx albuterol sulfate 90 mcg/actuation 2 puff inhalation Q4H PRN 07/19/24 09/05/24 Rx aerosol inhaler (ProAir HFA) shortness of breath or wheezing #8.5 grams ferrous sulfate 325 mg (65 mg 325 mg PO DAILY #90 tabs 07/19/24 09/05/24 Rx iron) tablet rivaroxaban 20 mg tablet (Xarelto) 20 mg PO QPM #30 tabs 08/15/24 09/05/24 Rx Allergies Allergy/AdvReac Type Severity Reaction Status Date / Time Opioids - Morphine Analogues AdvReac Intermediate Nausea and Verified 09/05/24 18:07 Vomiting Vital Signs Vital Signs - 24 hr 09/09/24 20:00 09/09/24 20:58 09/09/24 21:01 Temperature Pulse Rate 97 81 81 Respiratory Rate 18 16 16 Blood Pressure Pulse Oximetry 95 96 Oxygen Delivery Room Air Room Air Fraction of Inspired Oxygen 21 21 09/09/24 21:07 09/10/24 05:29 09/10/24 07:49 Temperature 99.6 F 98.4 F Pulse Rate 97 98 Respiratory Rate 18 16 Blood Pressure 160/71 H 144/66 H Pulse Oximetry 95 95 97 Oxygen Delivery Room Air Fraction of Inspired Oxygen 21 09/10/24 08:00 09/10/24 14:00 Temperature 98.1 F Pulse Rate 98 86 Respiratory Rate 16 20 Blood Pressure 137/63 Pulse Oximetry 97 98 Oxygen Delivery Room Air Fraction of Inspired Oxygen 21 Exam Narrative: Fully conscious alert , somewhat hard of hearing. No aphasia or dysarthria. No evidence of external injuries. Cranial nerves on individual testing were intact. No facial asymmetry. Tongue was midline. Motor system shows normal power and tone in both upper and lower limbs. No involuntary movements were noted. Attention was then to the extraocular movements and I do not see any asymmetry of the visual axis. Results Labs 09/10/24 05:46 09/10/24 05:46 Labs: Short CBC 09/10/24 Range/Units 05:46 WBC 13.6 H (4.5-10.0) K/mm3 Hgb 11.6 L (14.0-18.0) g/dL Hct 38.0 L (42.0-52.0) % Plt Count 463 H (150-375) k/mm3 BMP 09/10/24 05:46 Sodium 140 Potassium 4.5 Chloride 102 Carbon Dioxide 22 BUN 18 Creatinine 1.16 Glucose 141 H Calcium 9.4 Liver Function 09/10/24 Range/Units 05:46 Total Bilirubin 1.7 H (0.2-1.3) mg/dL AST 26 (17-59) U/L ALT 26 (6-50) U/L Alkaline Phosphatase 41 (38-126) U/L Albumin 3.7 (3.5-5.1) g/dL Urine 09/10/24 Range/Units 12:20 Urine Color Yellow (Yellow) Urine Appearance Turbid H (Clear) Urine pH 6.5 (5.0-9.0) Ur Specific [place] 1.014 (1.001-1.035) Urine Protein 1+ H (Negative) mg/dL Urine Glucose (UA) Negative (Negative) mg/dL
[2024-09-10 17:28] LABS: Cholesterol 107 mg/dL (0-200); HDL Direct 38 mg/dL; Triglycerides 103 mg/dL (<150)
[2024-09-10 17:39] LABS: LDL Cholesterol Direct 38 mg/dL
[2024-09-10] MEDS: LORazepam INJ (*CRX) 2 MG/ML VIAL 0.5 MG IV PUSH (18:05)
[2024-09-10] MEDS: RIVAROXABAN 15 MG TABLET PO (18:05)
[2024-09-10 20:13] VITALS: PULSE 93; O2SAT 93
[2024-09-10 20:40] VITALS: PULSE 93; RESP 20; TEMP 36.2; O2SAT 93
--- NOTE | 2024-09-10 23:14 | PC.NURSE ---
at bedside at time of assessment. Pt is uncooperative with assessment and medication administration. Pt seems to be hallucinating and it constantly grabbing at the air or at whatever he is able to reach. Pt refused oral medications this evening, is aware. Bed alarm on.
--- NOTE | 2024-09-11 | ECHO_ITS ---
Patient Info Name: Christian Villa Age: 84 years : 1940 Gender: Male Ht: 71 in Wt: 198 lbs BSA: 2.14 m2 HR: 86 bpm BP: 147 / 86 mmHg Technical Quality: Good Exam Date: 09/11/2024 9:43 AM Exam Location: Echo Lab Patient Status: Inpatient Admit Date: 09/10/2024 Staff Ordering Physician: Carlos Sheridan MD Concept Artist: Isamar Mckinley RDCS Attending Provider: Kenyon Fernandez MD Exam Type: CA echo doppler w bubble study Study Info Complete two-dimensional, color flow and Doppler transthoracic echocardiogram is performed with agitated saline. Contrast/Agitated Saline Contrast/Ag. Saline: Agitated Saline Amount: 12.00 ml Existing IV Access: Yes IV Access Condition: patent with no signs of infiltration Summary 1. Left ventricular chamber dimension is normal. 2. Left ventricular systolic function is normal, estimated at 60-65%. 3. There is moderate concentric increased left ventricular wall thickness. 4. The left ventricular diastolic function is abnormal. 5. E/e' 15 is elevated. 6. Atrial fibrillation. 7. Left atrial chamber dimension is moderately enlarged. 8. There is mild aortic valve sclerosis. 9. There is mild to moderate mitral valve regurgitation. 10. There is moderate tricuspid valve regurgitation. 11. Moderate pulmonary hypertension, estimated pulmonary arterial systolic pressure is 52 mmHg. 12. There is trace pulmonic regurgitation. Left Ventricle E/e' 15 is elevated. Atrial fibrillation. Left ventricular chamber dimension is normal. Left ventricular systolic function is normal, estimated at 60-65%. There is moderate concentric increased left ventricular wall thickness. The left ventricular diastolic function is abnormal. Right Ventricle Right ventricular chamber dimension is normal. Right ventricular systolic function is normal. Left Atria Left atrial chamber dimension is moderately enlarged. Right Atria Right atrial chamber dimension is normal. Atrial Septum Agitated saline injection with and without valsalva maneuver opacified right side cardiac chambers without shunt to left side cardiac chambers. Intact interatrial septum visualized by 2D and agitated saline imaging. Aortic Valve The aortic valve is trileaflet. There is mild aortic valve sclerosis. There is no aortic valve stenosis. There is no aortic valve regurgitation. Pulmonic Valve There is trace pulmonic regurgitation. Mitral Valve There is no mitral valve stenosis. There is mild to moderate mitral valve regurgitation. Tricuspid Valve There is moderate tricuspid valve regurgitation. Moderate pulmonary hypertension, estimated pulmonary arterial systolic pressure is 52 mmHg. Pericardium/Pleural There is no pericardial effusion. Inferior Vena Cava Normal inferior vena cava with >50% collapse upon inspiration consistent with normal right atrial pressure, 5 mmHg. Aorta The aortic root size at the sinus of Valsalva is normal. Left Ventricular Outflow Tract Name Value Normal LVOT 2D LVOT Diameter 2.2 cm LVOT Doppler LVOT Peak Gradient 2 mmHg LVOT Mean Gradient 1 mmHg LVOT VTI 18 cm LVOT VTI/AV VTI Ratio 0.5 LVOT Stroke Volume 68 ml LVOT CO 12.9 l/min LVOT CI 6.0 l/min/m2 Pulmonic Valve Name Value Normal PV Doppler PV Peak Gradient 4 mmHg Mitral Valve Name Value Normal MV Doppler MV Decel Mcduffie 701 cm/s2 MV PHT 57 ms MV Area (PHT) 3.9 cm2 4.0-5.0 MV Diastolic Function MV E Peak Velocity 137 cm/s MV A Peak Velocity 5 cm/s MV E/A 29.7 MV Decel Time 195 ms MV Annular TDI MV E/e' (Septal) 13.9 <=8.0 MV E/e' (Lateral) 16.6 <=8.0 MV E/e' (Average) 15.2 Tricuspid Valve Name Value Normal TV Regurgitation Doppler TR Peak Velocity 344 cm/s TR Peak Gradient 40 mmHg Estimated PAP/RSVP RA Pressure 5 mmHg <=5 PA Systolic Pressure 52 mmHg <36 RV Systolic Pressure 52 mmHg <36 Aorta Name Value Normal Ascending Aorta Ao Root Diameter (MM) 3.7 cm Ao Root Diam Index (MM) 1.7 cm/m2 Aortic Valve Name Value Normal AV Doppler AV Peak Velocity 194 cm/s AV Peak Gradient 14 mmHg AV Mean Gradient 9 mmHg AV VTI 36 cm AV Area (Cont Eq VTI) 1.9 cm2 >=3.0 AV Area (Cont Eq Junior) 1.5 cm2 AV Regurgitation 2D LVOT Area 3.7 cm2 Ventricles Name Value Normal LV Dimensions 2D/MM IVS Diastolic Thickness (2D) 1.5 cm 0.6-1.0 LVID Diastole (2D) 4.0 cm 4.2-5.8 LVIW Diastolic Thickness (2D) 1.3 cm 0.6-1.0 LVID Systole (2D) 2.8 cm 2.5-4.0 LVOT Diameter 2.2 cm LV Mass (2D Cubed) 210.01 g 88.00-224.00 LV Mass Index (2D Cubed) 98 g/m2 49-115 Relative Wall Thickness (2D) 0.65 LV Fractional Shortening/Ejection Fraction 2D/MM LV Fractional Shortening (2D) 30 % 25-43 LV EF (2D Teicholz) 58 % 52-72 LV Diastolic Volume (4C MOD) 68 ml LV EF (4C MOD) 76 % LV Diastolic Volume (2C MOD) 97 ml LV EF (2C MOD) 66 % LV Diastolic Volume (BP MOD) 83 ml 62-150 LV Diastolic Volume Index (BP MOD) 39 ml/m2 34-74 LV Systolic Volume (BP MOD) 24 ml 21-61 LV Systolic Volume Index (BP MOD) 11 ml/m2 11-31 LV EF (BP MOD) 71 % 52-72 LV Diastolic Length (4C) 6.9 cm LV Systolic Length (4C) 5.3 cm LV Stroke Volume (4C MOD) 52 ml Atria Name Value Normal LA Dimensions LA Dimension (MM) 4.1 cm 3.0-4.1 LA Volume (4C A-L) 93 ml LA Volume (BP A-L) 82 ml RA Dimensions RA Area (4C) 17.4 cm2 <=18.0 Report Signatures
[2024-09-11 06:35] VITALS: BP 147/86; PULSE 96; RESP 20; TEMP 36.1; O2SAT 93
[2024-09-11 07:15] LABS: Glucose Point of Care 113 mg/dl (65-105)
[2024-09-11 07:53] VITALS: PULSE 59; RESP 16
[2024-09-11] MEDS: FLUTICASONE/SALMETEROL 115-21 MCG INHALER 1 PUFF 2 PUFF INHALATION ×2 (07:53→19:51)
--- NOTE | 2024-09-11 07:58 | P.PNCA_ITS ---
Progress Note: A&P Assessment and Plan (1) Atrial fibrillation: Qualifiers: Atrial fibrillation type: unspecified Qualified Code(s): I48.91 - Unspecified atrial fibrillation Code(s): I48.91 - Unspecified atrial fibrillation Status: Chronic Assessment and Plan: [id number] 6. Rate is controlled. Was on Xarelto but on hold due to having lumbar surgery. Back on it again for anticoagulation for atrial fibrillation and distal vein DVT. No further cardiac workup is needed, will sign off. Please call with any questions. (2) CAD (coronary artery disease): Qualifiers: Coronary Disease-Associated Artery/Lesion type: unspecified vessel or lesion type [place] vs. transplanted heart: [place] heart Associated angina: without angina Qualified Code(s): I25.10 - Atherosclerotic heart disease of [place] coronary artery without angina pectoris Code(s): I25.10 - Atherosclerotic heart disease of [place] coronary artery without angina pectoris Status: Acute Assessment and Plan: May stop Plavix as stenting was over a year ago. (3) Hyperlipidemia: Qualifiers: Hyperlipidemia type: unspecified Qualified Code(s): E78.5 - Hyperlipidemia, unspecified Code(s): E78.5 - Hyperlipidemia, unspecified Status: Acute Assessment and Plan: On Atorvastatin. (4) Essential hypertension: Code(s): I10 - Essential (primary) hypertension Status: Chronic Assessment and Plan: Stable. (5) Deep vein thrombosis (DVT) of right lower extremity: Code(s): I82.401 - Acute embolism and thrombosis of unspecified deep veins of right lower extremity Status: Acute Assessment and Plan: Distal right leg veins of PT and peroneal vein. On Xarelto. Subjective Date/time seen: 09/11/24 07:58 Interval history: Denies chest pain or sob. No confusion today. Exam Const: General: cooperative, healthy appearing and comfortable Orientation/consciousness: oriented to person, oriented to place and oriented to time Resp: Auscultation: clear to auscultation bilaterally, no crackles, no rales, no rhonchi and no wheezes Cardio: Rate: regular rate Rhythm: abnormal rhythm Heart sounds: no murmurs Peripheral pulses: dorsalis pedis present Neuro: General: oriented to person, oriented to place and oriented to time Extrem: Right lower extremity: edema Left lower extremity: edema Other: Mild edema of both legs Objective Data Vital Signs Vital Signs: Vital Signs - 24 hr 09/10/24 08:00 09/10/24 14:00 09/10/24 20:00 Temperature 98.1 F Pulse Rate 98 86 Respiratory Rate 16 20 Blood Pressure 137/63 Pulse Oximetry 97 98 Oxygen Delivery Room Air Room Air Fraction of Inspired Oxygen 21 21 09/10/24 20:13 09/10/24 20:40 09/11/24 06:35 Temperature 97.2 F L 97 F L Pulse Rate 93 93 96 Respiratory Rate 20 20 Blood Pressure 147/86 H Pulse Oximetry 93 93 93 Oxygen Delivery Room Air Fraction of Inspired Oxygen 21 09/11/24 07:53 Temperature Pulse Rate 59 L Respiratory Rate 16 Blood Pressure Pulse Oximetry Oxygen Delivery Fraction of Inspired Oxygen Intake/Output Intake/Output: Intake & Output 09/08/24 09/09/24 09/10/24 09/11/24 23:59 23:59 23:59 23:59 Intake Total 670 437 510 336 Output Total 1126 700 675 Balance -1780 -263 510 -339 Meds/Results Medications: Active Medications Generic Name Dose Route Start Last Admin Trade Name Freq PRN Reason Stop Dose Admin Acetaminophen 650 mg 09/05/24 13:33 09/10/24 01:33 Acetaminophen 325 Mg Tablet PO 650 mg Q6H PRN Administration Mild Pain (1-3) or Fever Hydrocodone Bitart/Acetaminophen 1 tab 09/06/24 09:17 09/09/24 06:38 Hydrocodone/Acetaminophen (*Crx) 5-325 Mg Tablet PO 1 tab Q4HR PRN Administration Pain Rated 4-6 Hydrocodone Bitart/Acetaminophen 1 tab 09/06/24 09:16 09/07/24 21:44 Hydrocodone/Acetaminophen (*Crx) 10-325 Mg Tablet PO 1 tab Q4H PRN Administration Pain Rated 7-10 Albuterol 2 puff 09/05/24 21:16 Albuterol Sulfate (*Sp) Aerosol 1 Puff INHALATION Q4HRT PRN shortness of breath or wheezing Aspirin 81 mg 09/11/24 09:00 Aspirin 81 Mg Enteric Tablet PO QAM MELISSA Atorvastatin Calcium 40 mg 09/05/24 21:35 09/10/24 21:19 Atorvastatin 40 Mg Tablet PO Not Given QHS MELISSA Dextrose 12.5 gm 09/05/24 13:34 Dextrose 50% 25 Gm/50 Ml Syringe IV PUSH PRN PRN Hypoglycemia Protocol Diltiazem HCl 180 mg 09/06/24 09:00 09/10/24 09:27 Diltiazem Hcl Cd 180 Mg Cap.24hr PO 180 mg DAILY MELISSA Administration Ferrous Sulfate 325 mg 09/06/24 09:00 09/10/24 09:27 Ferrous Sulfate [address] PO 325 mg DAILY MELISSA Administration Finasteride 5 mg 09/06/24 09:00 09/10/24 09:27 Finasteride 5 Mg Tablet BY MOUTH 5 mg DAILY MELISSA Administration Fish Oil 1 gm 09/06/24 09:00 09/10/24 09:27 [place] 3 Polyunsat Fatty Acids 1 Gm Cap PO 1 gm QAM MELISSA Administration Glucagon 1 mg 09/05/24 13:34 Glucagon For Inj 1 Mg Vial IM PRN PRN Hypoglycemia Protocol Glucose 15 gm 09/05/24 13:34 Glucose Oral Gel 15 Gm Of Glucse In 37.5 Gm Tube PO PRN PRN Hypoglycemia Protocol Dextrose 1,000 mls @ 100 mls/hr 09/05/24 13:34 Dextrose 5% 1,000 Ml IVPB PRN PRN Hypoglycemia Protocol Insulin Aspart 2 - 5 units 09/05/24 17:00 09/10/24 18:05 Insulin Aspart (*Bkc) 100 Units/Ml SUB-Q Not Given TIDWM MELISSA Protocol Insulin Aspart 1 - 2 units 09/05/24 21:00 09/10/24 21:19 Insulin Aspart (*Bkc) 100 Units/Ml SUB-Q Not Given HS MELISSA Protocol Lidocaine 1 patch 09/07/24 09:00 09/10/24 12:19 Lidocaine 5% Patch TRANSDERM Not Given DAILY MELISSA Multivitamins/Minerals 1 tab 09/06/24 09:00 09/10/24 09:26 Multivitamins /C Lutein (Centrum Silver) Tablet *Bkc PO 1 tab DAILY MELISSA Administration Oxybutynin Chloride 15 mg 09/05/24 21:40 09/10/24 21:19 Oxybutynin Chloride Xl 5 Mg Tab.Er.24 PO Not Given HS MELISSA Perflutren Lipid Microsphere 0 ml 09/10/24 14:37 Perflutren Lipid Microspheres 1.5 Ml Vial Diluted To 10 Ml Total Volume IV PUSH 09/13/24 14:37 ONCE PRN adequate visualization Protocol Polyethylene Glycol 17 gm 09/08/24 17:00 09/10/24 12:19 Polyethylene Glycol 3350 17 Gm Powd.Pack PO Not Given QAM [facility] Rivaroxaban 15 mg 09/06/24 03:50 09/10/24 18:05 Rivaroxaban 15 Mg Tablet PO 15 mg DAILY@1700 MELISSA Administration Fluticasone/Salmeterol 2 puff 09/05/24 21:40 09/11/24 07:53 Fluticasone/Salmeterol 115-21 Mcg Inhaler 1 Puff INHALATION 2 puff Q12HRT MELISSA Administration Vitamin B Complex 1 cap 09/06/24 09:00 09/10/24 09:26 Vitamin B Complex Capsule PO 1 cap DAILY MELISSA Administration Radiology Results: ITS Impressions Cervical Spine CT 09/05/24 08:05 Impression: No fracture or subluxation of the cervical spine. Advanced degenerative spondylosis, as above. Partially imaged left pleural effusion. Hip/Pelvis X-Ray 09/05/24 08:25 Impression: No significant abnormality is seen. Shoulder X-Ray 09/05/24 08:25 Impression: High riding humeral head suggests underlying rotator cuff tear. No acute fracture or dislocation. Degenerative change, as above. Knee X-Ray 09/05/24 08:26 Impression: Unremarkable left knee radiographs. Ribs X-Ray 09/05/24 21:51 IMPRESSION: No acute displaced left sided rib fracture, as detailed above. Venous Doppler Study 09/05/24 23:44 IMPRESSION: Deep venous thrombosis of the right posterior tibial and peroneal veins. Unable to evaluate the left posterior tibial and peroneal veins secondary to patient intolerance. Knee CT 09/07/24 11:11 IMPRESSION: 1. No left knee joint effusion or acute osseous abnormality. Chest/Abdomen/Pelvis CT 09/07/24 11:15 IMPRESSION: Soft tissue hematoma adjacent to the left posterior superior iliac spine likely the cause of patient's left hip pain without underlying fracture. Significant glenohumeral and acromioclavicular joint effusion without underlying fracture deformity of the left shoulder, possibly the cause of patient's left shoulder discomfort. High riding humeral heads bilaterally suggesting bilateral rotator cuff injury. Otherwise: No cross-sectional imaging evidence to suggest the presence of acute traumatic injury within the chest, abdomen or pelvis. Specifically, no hollow or solid organ injury. In addition: Multiple pulmonary nodules detected bilaterally for which follow-up as per Fleischner guidelines is recommended (repeat CT in 3 months, PET/CT, or tissue sampling). Head CT 09/08/24 15:15 IMPRESSION: No acute intracranial findings. Brain MRI 09/10/24 11:24 IMPRESSION: 1. 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 Clinical correlation and follow-up advised. 2. Deep white matter ischemic changes with mild brain atrophy. Chest X-Ray 09/10/24 14:01 IMPRESSION: Mild pulmonary vascular congestion with a small left-sided pleural effusion. Carotid Doppler Study 09/10/24 17:14 IMPRESSION: 1. 50-69% stenosis in the right internal carotid artery, by peak systolic velocity criteria. 2. 50-69% stenosis in the left internal carotid artery, by peak systolic velocity criteria. Labs Labs: Laboratory Results - last 24 hr 09/10/24 09/10/24 09/10/24 05:42 11:32 12:20 POC Capillary Glucose 181 H Triglycerides 103 Cholesterol 107 LDL Cholesterol Direct 38 HDL Direct 38 Urine Color Yellow Urine Appearance Turbid H Urine pH 6.5 Ur Specific [place] 1.014 Urine Protein 1+ H Urine Glucose (UA) Negative Urine Ketones 1+ H Ur Blood (Man) Trace Urine Nitrate Negative Urine Bilirubin Negative Urine Urobilinogen 1.0 Leukocyte Esterase Rfl 3+ H Urine RBC 0-2 Urine WBC >100 H Ur Squamous Epith Cells None seen Urine Bacteria Rare Urine Casts 0-2 09/10/24 09/11/24 16:26 07:08 POC Capillary Glucose 144 H 113 H Triglycerides Cholesterol LDL Cholesterol Direct HDL Direct Urine Color Urine Appearance Urine pH Ur Specific [place] Urine Protein Urine Glucose (UA) Urine Ketones Ur Blood (Man) Urine Nitrate Urine Bilirubin Urine Urobilinogen Leukocyte Esterase Rfl Urine RBC Urine WBC Ur Squamous Epith Cells Urine Bacteria Urine Casts
[2024-09-11] MEDS: VITAMIN B COMPLEX CAPSULE 1 CAP PO (08:33)
[2024-09-11] MEDS: polyethylene glycoL 3350 17 GM POWD.PACK PO (08:33)
[2024-09-11] MEDS: MULTIVITAMINS /C LUTEIN (CENTRUM SILVER) TABLET *BKC 1 TAB PO (08:33)
[2024-09-11] MEDS: FINASTERIDE 5 MG TABLET BY MOUTH (08:33)
[2024-09-11] MEDS: OMEGA 3 POLYUNSAT FATTY ACIDS 1 GM CAP PO (08:33)
[2024-09-11] MEDS: dilTIAZem HCL CD 180 MG CAP.24HR PO (08:34)
[2024-09-11] MEDS: ASPIRIN 81 MG ENTERIC TABLET PO (08:34)
[2024-09-11] MEDS: FERROUS SULFATE 325 MG TABLET DR PO (08:34)
[2024-09-11] MEDS: LIDOCAINE 5% PATCH 1 PATCH TRANSDERM (08:35)
[2024-09-11] MEDS: ACETAMINOPHEN 325 MG TABLET 650 MG PO (09:34)
[2024-09-11 11:37] LABS: Glucose Point of Care 190 mg/dl (65-105)
[2024-09-11 14:00] VITALS: BP 128/76; PULSE 89; RESP 20; TEMP 36.9; O2SAT 98
--- NOTE | 2024-09-11 15:06 | PM.IMPN ---
Progress Note: A&P Assessment and Plan (1) Frequent falls: Code(s): R29.6 - Repeated falls Status: Acute Assessment and Plan: Interval history: 84-year-old male with paroxysmal atrial fibrillation on chronic anticoagulation, coronary artery disease, hypertension, hyperlipidemia, type 2 diabetes mellitus, chronic obstructive pulmonary disease, untreated obstructive sleep apnea, benign prostatic hyperplasia, chronic kidney disease, arthritis, and lumbar spinal stenosis with neurogenic claudication status post minimally invasive lumbar decompression at L3-L4 and L4-L5 earlier this month who presented to the emergency department from home for evaluation of left shoulder and hip pain after fall. He was walking down the stairs yesterday morning and when he got to the last step his legs gave out and he fell down onto his left side. He has had significant pain in his left shoulder and to lesser extent in the left hip since that time. He has had increasing pain in the shoulder since that time, to the point where he can barely even lifted up due to excruciating pain, and came in for evaluation. There was no head trauma or loss of consciousness in the fall and he denies antecedent symptoms prior to the fall. He voices frustration as he has been participating in PT since his surgery and he feels as though he is not improving. In the ED: Vital signs were stable on arrival. CTA of the head and cervical spine were without acute findings. X-rays of the left hip, pelvis, shoulder, and knee were also without acute findings. Physical therapy evaluated the patient in the ED and he did not do well. Care coordination was then contacted to see if he could be placed in a rehab facility however he requires preauthorization by his insurance and is being admitted in this setting.Venous Doppler ultrasounds of the lower extremities bilaterally ordered on admission resulted positive for DVT of right posterior tibial and peroneal veins. The patient is adamant he wants to continue Xarelto to treat this in spite of his bruising on admission as well as his fall risk and restarted at reduced dose of 15 mg p.o. q.h.s.. 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 Status: Acute (4) Atrial fibrillation: Qualifiers: Atrial fibrillation type: unspecified Qualified Code(s): I48.91 - Unspecified atrial fibrillation Code(s): I48.91 - Unspecified atrial fibrillation Status: Chronic (5) Essential hypertension: Code(s): I10 - Essential (primary) hypertension Status: Chronic (6) Type 2 diabetes mellitus: Qualifiers: Diabetes mellitus senior care insulin use: without 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 No acute fracture or dislocation. -left hip x-ray no significant abnormality -rib x-ray no acute displaced left-sided rib fracture -continue PT OT -multimodal pain management -Ortho on board -case management on board Hematoma: Surgery consulted Patient wants to continue both Plavix and Xarelto Discussed with Dr. Noonan to discontinue Plavix CT chest/abdomen/pelvis:Soft tissue hematoma adjacent to the left posterior superior iliac spine likely the cause of patient's left hip pain without underlying fracture.Significant glenohumeral and acromioclavicular joint effusion without underlying fracture deformity of the left shoulder, possibly the cause of patient's left shoulder discomfort.High riding humeral heads bilaterally suggesting bilateral rotator cuff injury. Otherwise:No cross-sectional imaging evidence to suggest the presence of acute traumatic injury within the chest, abdomen or pelvis. Specifically, no hollow or solid organ injury.In addition:Multiple pulmonary nodules detected bilaterally for which follow-up as per Fleischner guidelines is recommended (repeat CT in 3 months, PET/CT, or tissue sampling). DVT -possibly be provoked by sedentary lifestyle -Venous Doppler Deep venous thrombosis of the right posterior tibial and peroneal veins. Unable to evaluate the left posterior tibial and peroneal veins secondary to patient intolerance. -Xarelto 15 mg reduced due to recent fall which resulted in bruising -monitor H&H and platelets -no evidence of cancer -hemodynamically stable -will monitor vitals CVA MRI Brain:1. 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 2. Deep white matter ischemic changes with mild brain atrophy. -Echo pending -bedside swallow shows no evidence of aspiration -Xarelto and statin -LDL goal less than 70 -if neurology recommends conservative management -Patient needs to follow up with vascular surgeon if needed after the carotid ultrasound result -permissive hypertension less than 220/120 if no thrombolytics. -neurology consulted awaiting official recommendation -speech and swallow evaluation -PT/OT eval -Bedside swallow eval ECHO pending DVT prophylaxis on Xarelto Subjective Date/time seen: 09/11/24 15:06 Interval history: Comfortable at bedside awaiting placement ECHO pending Review of Systems Review of Systems: 12 systems were reviewed and are negative except for as per HPI. Exam Narrative: General: Chronically ill-appearing male in the semi-[place] position in bed in no acute distress. Weight: 92.8 kg. BMI: 28.5. HEENT: PERRL, EOMI. Sclera anicteric. Oral mucosa moist. Neck: Supple. Respiratory: Respirations are nonlabored he is speaking in full sentences. Cardiovascular: Regular rate and rhythm with S1-S2. Systolic murmur at the left lower sternal border and apex. Gastrointestinal: Abdomen is soft, obese, nontender, and nondistended with positive bowel sounds. Skin: Warm and dry. Scattered bruising on the upper and lower extremities. There is a bruise with underlying hematoma on the left medial calf. Skin tears on the arms, worse on the left. Extremities: No cyanosis or clubbing. Pitting edema of the lower legs. Peripheral pulses palpable. Neurological: Alert. Cranial nerves 2-12 are grossly intact. No gross focal deficits to casual conversation. Musculoskeletal: His bit tender to palpation over the left flank. He is exquisitely tender to even light palpation over the anterior left shoulder and is hesitant to move that arm due to pain. Psychiatric: Pleasant and cooperative with appropriate mood and affect. Objective Data Vital Signs Vital Signs: Vital Signs - 24 hr 09/10/24 20:00 09/10/24 20:13 09/10/24 20:40 Temperature 97.2 F L Pulse Rate 93 93 Respiratory Rate 20 Blood Pressure Pulse Oximetry 93 93 Oxygen Delivery Room Air Room Air Fraction of Inspired Oxygen 21 21 09/11/24 06:35 09/11/24 07:53 09/11/24 08:00 Temperature 97 F L Pulse Rate 96 59 L Respiratory Rate 20 16 Blood Pressure 147/86 H Pulse Oximetry 93 Oxygen Delivery Room Air Fraction of Inspired Oxygen Intake/Output Intake/Output: Intake & Output 09/08/24 09/09/24 09/10/24 09/11/24 23:59 23:59 23:59 23:59 Intake Total 670 437 510 816 Output Total 2450 700 675 Balance -1780 -263 510 141 Meds/Results Medications: Active Medications Generic Name Dose Route Start Last Admin Trade Name Freq PRN Reason Stop Dose Admin Acetaminophen 650 mg 09/05/24 13:33 09/11/24 09:34 Acetaminophen 325 Mg Tablet PO 650 mg Q6H PRN Administration Mild Pain (1-3) or Fever Hydrocodone Bitart/Acetaminophen 1 tab 09/06/24 09:17 09/09/24 06:38 Hydrocodone/Acetaminophen (*Crx) 5-325 Mg Tablet PO 1 tab Q4HR PRN Administration Pain Rated 4-6 Hydrocodone Bitart/Acetaminophen 1 tab 09/06/24 09:16 09/07/24 21:44 Hydrocodone/Acetaminophen (*Crx) 10-325 Mg Tablet PO 1 tab Q4H PRN Administration Pain Rated 7-10 Albuterol 2 puff 09/05/24 21:16 Albuterol Sulfate (*Sp) Aerosol 1 Puff INHALATION Q4HRT PRN shortness of breath or wheezing Aspirin 81 mg 09/11/24 09:00 09/11/24 08:34 Aspirin 81 Mg Enteric Tablet PO 81 mg QAM MELISSA Administration Atorvastatin Calcium 40 mg 09/05/24 21:35 09/10/24 21:19 Atorvastatin 40 Mg Tablet PO Not Given QHS MELISSA Dextrose 12.5 gm 09/05/24 13:34 Dextrose 50% 25 Gm/50 Ml Syringe IV PUSH PRN PRN Hypoglycemia Protocol Diltiazem HCl 180 mg 09/06/24 09:00 09/11/24 08:34 Diltiazem Hcl Cd 180 Mg Cap.24hr PO 180 mg DAILY MELISSA Administration Ferrous Sulfate 325 mg 09/06/24 09:00 09/11/24 08:34 Ferrous Sulfate [address] PO 325 mg DAILY MELISSA Administration Finasteride 5 mg 09/06/24 09:00 09/11/24 08:33 Finasteride 5 Mg Tablet BY MOUTH 5 mg DAILY MELISSA Administration Fish Oil 1 gm 09/06/24 09:00 09/11/24 08:33 [place]row 3 Polyunsat Fatty Acids 1 Gm Cap PO 1 gm QAM MELISSA Administration Glucagon 1 mg 09/05/24 13:34 Glucagon For Inj 1 Mg Vial IM PRN PRN Hypoglycemia Protocol Glucose 15 gm 09/05/24 13:34 Glucose Oral Gel 15 Gm Of Glucse In 37.5 Gm Tube PO PRN PRN Hypoglycemia Protocol Dextrose 1,000 mls @ 100 mls/hr 09/05/24 13:34 Dextrose 5% 1,000 Ml IVPB PRN PRN Hypoglycemia Protocol Insulin Aspart 2 - 5 units 09/05/24 17:00 09/11/24 12:34 Insulin Aspart (*Bkc) 100 Units/Ml SUB-Q Not Given TIDWM MELISSA Protocol Insulin Aspart 1 - 2 units 09/05/24 21:00 09/10/24 21:19 Insulin Aspart (*Bkc) 100 Units/Ml SUB-Q Not Given HS MELISSA Protocol Lidocaine 1 patch 09/07/24 09:00 09/11/24 08:35 Lidocaine 5% Patch TRANSDERM 1 patch DAILY MELISSA Administration Multivitamins/Minerals 1 tab 09/06/24 09:00 09/11/24 08:33 Multivitamins /C Lutein (Centrum Silver) Tablet *Bkc PO 1 tab DAILY MELISSA Administration Oxybutynin Chloride 15 mg 09/05/24 21:40 09/10/24 21:19 Oxybutynin Chloride Xl 5 Mg Tab.Er.24 PO Not Given HS MELISSA Perflutren Lipid Microsphere 0 ml 09/10/24 14:37 Perflutren Lipid Microspheres 1.5 Ml Vial Diluted To 10 Ml Total Volume IV PUSH 09/13/24 14:37 ONCE PRN adequate visualization Protocol Polyethylene Glycol 17 gm 09/08/24 17:00 09/11/24 08:33 Polyethylene Glycol 3350 17 Gm Powd.Pack PO 17 gm QAM MELISSA Administration Rivaroxaban 15 mg 09/06/24 03:50 09/10/24 18:05 Rivaroxaban 15 Mg Tablet PO 15 mg DAILY@1700 MELISSA Administration Fluticasone/Salmeterol 2 puff 09/05/24 21:40 09/11/24 07:53 Fluticasone/Salmeterol 115-21 Mcg Inhaler 1 Puff INHALATION 2 puff Q12HRT MELISSA Administration Vitamin B Complex 1 cap 09/06/24 09:00 09/11/24 08:33 Vitamin B Complex Capsule PO 1 cap DAILY MELISSA Administration Radiology Results: ITS Impressions Cervical Spine CT 09/05/24 08:05 Impression: No fracture or subluxation of the cervical spine. Advanced degenerative spondylosis, as above. Partially imaged left pleural effusion. Hip/Pelvis X-Ray 09/05/24 08:25 Impression: No significant abnormality is seen. Shoulder X-Ray 09/05/24 08:25 Impression: High riding humeral head suggests underlying rotator cuff tear. No acute fracture or dislocation. Degenerative change, as above. Knee X-Ray 09/05/24 08:26 Impression: Unremarkable left knee radiographs. Ribs X-Ray 09/05/24 21:51 IMPRESSION: No acute displaced left sided rib fracture, as detailed above. Venous Doppler Study 09/05/24 23:44 IMPRESSION: Deep venous thrombosis of the right posterior tibial and peroneal veins. Unable to evaluate the left posterior tibial and peroneal veins secondary to patient intolerance. Knee CT 09/07/24 11:11 IMPRESSION: 1. No left knee joint effusion or acute osseous abnormality. Chest/Abdomen/Pelvis CT 09/07/24 11:15 IMPRESSION: Soft tissue hematoma adjacent to the left posterior superior iliac spine likely the cause of patient's left hip pain without underlying fracture. Significant glenohumeral and acromioclavicular joint effusion without underlying fracture deformity of the left shoulder, possibly the cause of patient's left shoulder discomfort. High riding humeral heads bilaterally suggesting bilateral rotator cuff injury. Otherwise: No cross-sectional imaging evidence to suggest the presence of acute traumatic injury within the chest, abdomen or pelvis. Specifically, no hollow or solid organ injury. In addition: Multiple pulmonary nodules detected bilaterally for which follow-up as per Fleischner guidelines is recommended (repeat CT in 3 months, PET/CT, or tissue sampling). Head CT 09/08/24 15:15 IMPRESSION: No acute intracranial findings. Brain MRI 09/10/24 11:24 IMPRESSION: 1. 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 Clinical correlation and follow-up advised. 2. Deep white matter ischemic changes with mild brain atrophy. Chest X-Ray 09/10/24 14:01 IMPRESSION: Mild pulmonary vascular congestion with a small left-sided pleural effusion. Carotid Doppler Study 09/10/24 17:14 IMPRESSION: 1. 50-69% stenosis in the right internal carotid artery, by peak systolic velocity criteria. 2. 50-69% stenosis in the left internal carotid artery, by peak systolic velocity criteria. Labs Labs: Laboratory Results - last 24 hr 09/10/24 09/10/24 09/11/24 05:42 16:26 07:08 POC Capillary Glucose 144 H 113 H Triglycerides 103 Cholesterol 107 LDL Cholesterol Direct 38 HDL Direct 38 09/11/24 11:29 POC Capillary Glucose 190 H Triglycerides Cholesterol LDL Cholesterol Direct HDL Direct Quality VTE Prophylaxis VTE prophylaxis: mechanical ordered
[2024-09-11] MEDS: RIVAROXABAN 15 MG TABLET PO (16:15)
[2024-09-11 16:25] LABS: Glucose Point of Care 155 mg/dl (65-105)
[2024-09-11 19:54] VITALS: PULSE 87; RESP 16
[2024-09-11 19:55] VITALS: PULSE 87; O2SAT 99
[2024-09-11 21:00] VITALS: BP 132/61; PULSE 81; RESP 20; TEMP 36.6; O2SAT 98
[2024-09-11] MEDS: oxyBUTYnin CHLORIDE XL 5 MG TAB.ER.24 15 MG PO (21:10)
[2024-09-11] MEDS: ATORVASTATIN 40 MG TABLET PO (21:10)
[2024-09-11 21:28] LABS: Glucose Point of Care 180 mg/dl (65-105)
[2024-09-12] VITALS (7 sets, daily range): BP systolic 126–134; BP diastolic 51–72; PULSE 78–87; RESP 14–20; TEMP 36.4–36.6; O2SAT 97–100; BMI 24.3
[2024-09-12 06:54] LABS: Basophils Percent Auto 0.5 % (0.2-1.2); Eosinophils Absolute Auto 0.4 K/mm3 (0-0.3); Eosinophils Percent Auto 4.9 % (0-4.4); Hematocrit 33.2 % (42.0-52.0); Hemoglobin 10.1 g/dL (14.0-18.0); Immature Granulocyte Absolute 0.03 K/mm3 (0.00-0.031); Immature Granulocyte Percent A 0.4 % (0-0.5); Lymphocytes Absolute Auto 2.31 K/mm3 (0.9-3.2); Lymphocytes Percent Auto 29.1 % (18.3-44.2); Mean Corpuscular HGB Conc 30.4 g/dl (32-36); Mean Corpuscular Hemoglobin 29.1 pg (26-34); Mean Corpuscular Volume 95.7 fl (80-100); Mean Platelet Volume 8.7 fl (7.4-10.4); Monocytes Absolute Auto 0.7 K/mm3 (0.1-0.6); Monocytes Percent Auto 8.3 % (2.6-8.5); Neutrophils Absolute Auto 4.5 K/mm3 (1.3-6.7); Neutrophils Percent Auto 56.8 % (45.5-73.1); Platelet Count Result 324 k/mm3 (150-375); Red Blood Count 3.47 M/mm3 (4.6-6.20); Red Cell Distribution Width 14.3 % (11.5-14.5); White Blood Count 7.9 K/mm3 (4.5-10.0)
[2024-09-12 07:07] LABS: Alanine Aminotransferase 17 U/L (6-50); Albumin Level 2.9 g/dL (3.5-5.1); Alkaline Phosphatase 33 U/L (38-126); Anion Gap 5 mmol/L (4-12); Aspartate Amino Transferase 27 U/L (17-59); Bilirubin,Total 1.5 mg/dL (0.2-1.3); Blood Urea Nitrogen 23 mg/dL (9-20); Calcium 8.2 mg/dL (8.4-10.2); Carbon Dioxide 30 mmol/L (22-30); Chloride 104 mmol/L (98-107); Estimated CRCL calculation 52 ml/min; Estimated Glomerular Filt Rate > 60; Glucose 125 mg/dL (65-110); Magnesium 2.3 mg/dL (1.6-2.3); Potassium 4.2 mmol/L (3.4-5.0); Sodium 139 mmol/L (137-145)
[2024-09-12 08:00] LABS: Glucose Point of Care 118 mg/dl (65-105)
[2024-09-12] MEDS: FINASTERIDE 5 MG TABLET BY MOUTH (08:32)
[2024-09-12] MEDS: VITAMIN B COMPLEX CAPSULE 1 CAP PO (08:32)
[2024-09-12] MEDS: FERROUS SULFATE 325 MG TABLET DR PO (08:32)
[2024-09-12] MEDS: OMEGA 3 POLYUNSAT FATTY ACIDS 1 GM CAP PO (08:32)
[2024-09-12] MEDS: LIDOCAINE 5% PATCH 1 PATCH TRANSDERM (08:32)
[2024-09-12] MEDS: polyethylene glycoL 3350 17 GM POWD.PACK PO (08:32)
[2024-09-12] MEDS: ASPIRIN 81 MG ENTERIC TABLET PO (08:32)
[2024-09-12] MEDS: dilTIAZem HCL CD 180 MG CAP.24HR PO (08:32)
[2024-09-12] MEDS: MULTIVITAMINS /C LUTEIN (CENTRUM SILVER) TABLET *BKC 1 TAB PO (08:32)
[2024-09-12] MEDS: FLUTICASONE/SALMETEROL 115-21 MCG INHALER 1 PUFF 2 PUFF INHALATION ×2 (08:35→20:06)
[2024-09-12] MEDS: ACETAMINOPHEN 325 MG TABLET 650 MG PO (08:43)
[2024-09-12 12:07] LABS: Glucose Point of Care 128 mg/dl (65-105)
--- NOTE | 2024-09-12 12:37 | PM.IMPN ---
Progress Note: A&P Assessment and Plan (1) Frequent falls: Code(s): R29.6 - Repeated falls Status: Acute Assessment and Plan: Interval history: 84-year-old male with paroxysmal atrial fibrillation on chronic anticoagulation, coronary artery disease, hypertension, hyperlipidemia, type 2 diabetes mellitus, chronic obstructive pulmonary disease, untreated obstructive sleep apnea, benign prostatic hyperplasia, chronic kidney disease, arthritis, and lumbar spinal stenosis with neurogenic claudication status post minimally invasive lumbar decompression at L3-L4 and L4-L5 earlier this month who presented to the emergency department from home for evaluation of left shoulder and hip pain after fall. He was walking down the stairs yesterday morning and when he got to the last step his legs gave out and he fell down onto his left side. He has had significant pain in his left shoulder and to lesser extent in the left hip since that time. He has had increasing pain in the shoulder since that time, to the point where he can barely even lifted up due to excruciating pain, and came in for evaluation. There was no head trauma or loss of consciousness in the fall and he denies antecedent symptoms prior to the fall. He voices frustration as he has been participating in PT since his surgery and he feels as though he is not improving. In the ED: Vital signs were stable on arrival. CTA of the head and cervical spine were without acute findings. X-rays of the left hip, pelvis, shoulder, and knee were also without acute findings. Physical therapy evaluated the patient in the ED and he did not do well. Care coordination was then contacted to see if he could be placed in a rehab facility however he requires preauthorization by his insurance and is being admitted in this setting.Venous Doppler ultrasounds of the lower extremities bilaterally ordered on admission resulted positive for DVT of right posterior tibial and peroneal veins. The patient is adamant he wants to continue Xarelto to treat this in spite of his bruising on admission as well as his fall risk and restarted at reduced dose of 15 mg p.o. q.h.s.. 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 (current) use of anticoagulants Status: Acute (4) Atrial fibrillation: Qualifiers: Atrial fibrillation type: unspecified Qualified Code(s): I48.91 - Unspecified atrial fibrillation Code(s): I48.91 - Unspecified atrial fibrillation Status: Chronic (5) Essential hypertension: Code(s): I10 - Essential (primary) hypertension Status: Chronic (6) Type 2 diabetes mellitus: Qualifiers: Diabetes mellitus residential insulin use: without intermodal customer service use Diabetes mellitus complication status: without complication Qualified Code(s): E11.9 - Type 2 diabetes mellitus without complications Code(s): E11.9 - Type 2 diabetes mellitus without complications Status: Acute (7) Hematoma: Code(s): T14.8XXA - Other injury of unspecified body region, initial encounter Status: Acute Plan Left shoulder/hip pain -status post minimally invasive lumbar decompression at L3-L4 and L4-L5 earlier this month -left knee x-ray unremarkable -left shoulder x-ray: High riding humeral head suggests underlying rotator cuff tear. No acute fracture or dislocation. -left hip x-ray no significant abnormality -rib x-ray no acute displaced left-sided rib fracture -continue PT OT -multimodal pain management -Ortho on board -case management on board Hematoma: Surgery consulted Patient wants to continue both Plavix and Xarelto Discussed with Dr. Noonan to discontinue Plavix CT chest/abdomen/pelvis:Soft tissue hematoma adjacent to the left posterior superior iliac spine likely the cause of patient's left hip pain without underlying fracture.Significant glenohumeral and acromioclavicular joint effusion without underlying fracture deformity of the left shoulder, possibly the cause of patient's left shoulder discomfort.High riding humeral heads bilaterally suggesting bilateral rotator cuff injury. Otherwise:No cross-sectional imaging evidence to suggest the presence of acute traumatic injury within the chest, abdomen or pelvis. Specifically, no hollow or solid organ injury.In addition:Multiple pulmonary nodules detected bilaterally for which follow-up as per Fleischner guidelines is recommended (repeat CT in 3 months, PET/CT, or tissue sampling). DVT -possibly be provoked by sedentary lifestyle -Venous Doppler Deep venous thrombosis of the right posterior tibial and peroneal veins. Unable to evaluate the left posterior tibial and peroneal veins secondary to patient intolerance. -Xarelto 15 mg reduced due to recent fall which resulted in bruising -monitor H&H and platelets -no evidence of cancer -hemodynamically stable -will monitor vitals CVA MRI Brain:1. 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 2. Deep white matter ischemic changes with mild brain atrophy. -Echo pending -bedside swallow shows no evidence of aspiration -Xarelto and statin -LDL goal less than 70 -if neurology recommends conservative management -Patient needs to follow up with vascular surgeon if needed after the carotid ultrasound result -s/p permissive hypertension -neurology eval noted -speech and swallow evaluation -PT/OT eval -Bedside swallow eval ECHO showed EF 60-65% with abnormal diastolic dysfunction Neurology recommended continuing Xarelto and Statin No neurological deficit UTI Urine culture GNB, awaiting speciation and sensitivity continue Rocephin DVT prophylaxis on Xarelto Subjective Date/time seen: 09/12/24 12:37 Interval history: Comfortable at bedside Awaiting urine culture sensitivity Review of Systems Review of Systems: 12 systems were reviewed and are negative except for as per HPI. Exam Narrative: General: Chronically ill-appearing male in the semi-[place] position in bed in no acute distress. Weight: 92.8 kg. BMI: 28.5. HEENT: PERRL, EOMI. Sclera anicteric. Oral mucosa moist. Neck: Supple. Respiratory: Respirations are nonlabored he is speaking in full sentences. Cardiovascular: Regular rate and rhythm with S1-S2. Systolic murmur at the left lower sternal border and apex. Gastrointestinal: Abdomen is soft, obese, nontender, and nondistended with positive bowel sounds. Skin: Warm and dry. Scattered bruising on the upper and lower extremities. There is a bruise with underlying hematoma on the left medial calf. Skin tears on the arms, worse on the left. Extremities: No cyanosis or clubbing. Pitting edema of the lower legs. Peripheral pulses palpable. Neurological: Alert. Cranial nerves 2-12 are grossly intact. No gross focal deficits to casual conversation. Musculoskeletal: His bit tender to palpation over the left flank. He is exquisitely tender to even light palpation over the anterior left shoulder and is hesitant to move that arm due to pain. Psychiatric: Pleasant and cooperative with appropriate mood and affect. Objective Data Vital Signs Vital Signs: Vital Signs - 24 hr 09/11/24 14:00 09/11/24 19:54 09/11/24 19:55 Temperature 98.4 F Pulse Rate 89 87 87 Respiratory Rate 20 16 Blood Pressure 128/76 Pulse Oximetry 98 99 Oxygen Delivery Room Air Fraction of Inspired Oxygen 09/11/24 20:00 09/11/24 21:00 09/12/24 06:15 Temperature 97.8 F 97.9 F Pulse Rate 81 78 Respiratory Rate 20 20 Blood Pressure 132/61 127/72 Pulse Oximetry 98 99 Oxygen Delivery Room Air Fraction of Inspired Oxygen 09/12/24 08:00 09/12/24 08:36 Temperature Pulse Rate Respiratory Rate Blood Pressure Pulse Oximetry 100 Oxygen Delivery Room Air Room Air Fraction of Inspired Oxygen Intake/Output Intake/Output: Intake & Output 09/09/24 09/10/24 09/11/24 09/12/24 23:59 23:59 23:59 23:59 Intake Total 152 588 1485 350 Output Total 700 975 800 Balance -220 398 9358 -450 Meds/Results Medications: Active Medications Generic Name Dose Route Start Last Admin Trade Name Freq PRN Reason Stop Dose Admin Acetaminophen 650 mg 09/05/24 13:33 09/12/24 08:43 Acetaminophen 325 Mg Tablet PO 650 mg Q6H PRN Administration Mild Pain (1-3) or Fever Hydrocodone Bitart/Acetaminophen 1 tab 09/06/24 09:17 09/09/24 06:38 Hydrocodone/Acetaminophen (*Crx) 5-325 Mg Tablet PO 1 tab Q4HR PRN Administration Pain Rated 4-6 Hydrocodone Bitart/Acetaminophen 1 tab 09/06/24 09:16 09/07/24 21:44 Hydrocodone/Acetaminophen (*Crx) 10-325 Mg Tablet PO 1 tab Q4H PRN Administration Pain Rated 7-10 Albuterol 2 puff 09/05/24 21:16 Albuterol Sulfate (*Sp) Aerosol 1 Puff INHALATION Q4HRT PRN shortness of breath or wheezing Aspirin 81 mg 09/11/24 09:00 09/12/24 08:32 Aspirin 81 Mg Enteric Tablet PO 81 mg QAM MELISSA Administration Atorvastatin Calcium 40 mg 09/05/24 21:35 09/11/24 21:10 Atorvastatin 40 Mg Tablet PO 40 mg QHS MELISSA Administration Dextrose 12.5 gm 09/05/24 13:34 Dextrose 50% 25 Gm/50 Ml Syringe IV PUSH PRN PRN Hypoglycemia Protocol Diltiazem HCl 180 mg 09/06/24 09:00 09/12/24 08:32 Diltiazem Hcl Cd 180 Mg Cap.24hr PO 180 mg DAILY MELISSA Administration Ferrous Sulfate 325 mg 09/06/24 09:00 09/12/24 08:32 Ferrous Sulfate [address] PO 325 mg DAILY MELISSA Administration Finasteride 5 mg 09/06/24 09:00 09/12/24 08:32 Finasteride 5 Mg Tablet BY MOUTH 5 mg DAILY MELISSA Administration Fish Oil 1 gm 09/06/24 09:00 09/12/24 08:32 [place] 3 Polyunsat Fatty Acids 1 Gm Cap PO 1 gm QAM MELISSA Administration Glucagon 1 mg 09/05/24 13:34 Glucagon For Inj 1 Mg Vial IM PRN PRN Hypoglycemia Protocol Glucose 15 gm 09/05/24 13:34 Glucose Oral Gel 15 Gm Of Glucse In 37.5 Gm Tube PO PRN PRN Hypoglycemia Protocol Dextrose 1,000 mls @ 100 mls/hr 09/05/24 13:34 Dextrose 5% 1,000 Ml IVPB PRN PRN Hypoglycemia Protocol Ceftriaxone Sodium 1 gm in 50 mls @ 100 mls/hr 09/12/24 09:00 09/12/24 09:35 Rocephin 1 Gm/Ns 50 Ml IVPB 100 mls/hr Q24H MELISSA Administration Insulin Aspart 2 - 5 units 09/05/24 17:00 09/12/24 12:05 Insulin Aspart (*Bkc) 100 Units/Ml SUB-Q Not Given TIDWM MELISSA Protocol Insulin Aspart 1 - 2 units 09/05/24 21:00 09/11/24 21:11 Insulin Aspart (*Bkc) 100 Units/Ml SUB-Q Not Given HS MELISSA Protocol Lidocaine 1 patch 09/07/24 09:00 09/12/24 08:32 Lidocaine 5% Patch TRANSDERM 1 patch DAILY MELISSA Administration Multivitamins/Minerals 1 tab 09/06/24 09:00 09/12/24 08:32 Multivitamins /C Lutein (Centrum Silver) Tablet *Bkc PO 1 tab DAILY MELISSA Administration Oxybutynin Chloride 15 mg 09/05/24 21:40 09/11/24 21:10 Oxybutynin Chloride Xl 5 Mg Tab.Er.24 PO 15 mg HS MELISSA Administration Perflutren Lipid Microsphere 0 ml 09/10/24 14:37 Perflutren Lipid Microspheres 1.5 Ml Vial Diluted To 10 Ml Total Volume IV PUSH 09/13/24 14:37 ONCE PRN adequate visualization Protocol Polyethylene Glycol 17 gm 09/08/24 17:00 09/12/24 08:32 Polyethylene Glycol 3350 17 Gm Powd.Pack PO 17 gm QAM MELISSA Administration Rivaroxaban 15 mg 09/06/24 03:50 09/11/24 16:15 Rivaroxaban 15 Mg Tablet PO 15 mg DAILY@1700 MELISSA Administration Fluticasone/Salmeterol 2 puff 09/05/24 21:40 09/12/24 08:35 Fluticasone/Salmeterol 115-21 Mcg Inhaler 1 Puff INHALATION 2 puff Q12HRT MELISSA Administration Vitamin B Complex 1 cap 09/06/24 09:00 09/12/24 08:32 Vitamin B Complex Capsule PO 1 cap DAILY MELISSA Administration Radiology Results: ITS Impressions Cervical Spine CT 09/05/24 08:05 Impression: No fracture or subluxation of the cervical spine. Advanced degenerative spondylosis, as above. Partially imaged left pleural effusion. Hip/Pelvis X-Ray 09/05/24 08:25 Impression: No significant abnormality is seen. Shoulder X-Ray 09/05/24 08:25 Impression: High riding humeral head suggests underlying rotator cuff tear. No acute fracture or dislocation. Degenerative change, as above. Knee X-Ray 09/05/24 08:26 Impression: Unremarkable left knee radiographs. Ribs X-Ray 09/05/24 21:51 IMPRESSION: No acute displaced left sided rib fracture, as detailed above. Venous Doppler Study 09/05/24 23:44 IMPRESSION: Deep venous thrombosis of the right posterior tibial and peroneal veins. Unable to evaluate the left posterior tibial and peroneal veins secondary to patient intolerance. Knee CT 09/07/24 11:11 IMPRESSION: 1. No left knee joint effusion or acute osseous abnormality. Chest/Abdomen/Pelvis CT 09/07/24 11:15 IMPRESSION: Soft tissue hematoma adjacent to the left posterior superior iliac spine likely the cause of patient's left hip pain without underlying fracture. Significant glenohumeral and acromioclavicular joint effusion without underlying fracture deformity of the left shoulder, possibly the cause of patient's left shoulder discomfort. High riding humeral heads bilaterally suggesting bilateral rotator cuff injury. Otherwise: No cross-sectional imaging evidence to suggest the presence of acute traumatic injury within the chest, abdomen or pelvis. Specifically, no hollow or solid organ injury. In addition: Multiple pulmonary nodules detected bilaterally for which follow-up as per Fleischner guidelines is recommended (repeat CT in 3 months, PET/CT, or tissue sampling). Head CT 09/08/24 15:15 IMPRESSION: No acute intracranial findings. Brain MRI 09/10/24 11:24 IMPRESSION: 1. 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 Clinical correlation and follow-up advised. 2. Deep white matter ischemic changes with mild brain atrophy. Chest X-Ray 09/10/24 14:01 IMPRESSION: Mild pulmonary vascular congestion with a small left-sided pleural effusion. Carotid Doppler Study 09/10/24 17:14 IMPRESSION: 1. 50-69% stenosis in the right internal carotid artery, by peak systolic velocity criteria. 2. 50-69% stenosis in the left internal carotid artery, by peak systolic velocity criteria. Labs Labs: Laboratory Results - last 24 hr 09/11/24 09/11/24 09/12/24 16:20 21:02 06:42 WBC 7.9 RBC 3.47 L Hgb 10.1 L Hct 33.2 L MCV 95.7 MCH 29.1 MCHC 30.4 L RDW 14.3 Plt Count 324 MPV 8.7 Immature Gran % (Auto) 0.4 Neut % (Auto) 56.8 Lymph % (Auto) 29.1 [place] % (Auto) 8.3 Eos % (Auto) 4.9 H Baso % (Auto) 0.5 Lymph # (Auto) 2.31 [place] # (Auto) 0.7 H Eos # (Auto) 0.4 H Baso # (Auto) 0.0 Abs Immat Gran (auto) 0.03 Absolute Neuts (auto) 4.5 Absolute Nucleated RBC 0.000 Nucleated RBC % 0.0 Sodium 139 Potassium 4.2 Chloride 104 Carbon Dioxide 30 Anion Gap 5 BUN 23 H Creatinine 1.02 Estim Creat Clear Calc 52 Estimated GFR > 60 Glucose 125 H POC Capillary Glucose 155 H 180 H Calcium 8.2 L Magnesium 2.3 Total Bilirubin 1.5 H AST 27 ALT 17 Alkaline Phosphatase 33 L Total Protein 6.0 L Albumin 2.9 L 09/12/24 09/12/24 07:53 11:00 WBC RBC Hgb Hct MCV MCH MCHC RDW Plt Count MPV Immature Gran % (Auto) Neut % (Auto) Lymph % (Auto) [place] % (Auto) Eos % (Auto) Baso % (Auto) Lymph # (Auto) [place] # (Auto) Eos # (Auto) Baso # (Auto) Abs Immat Gran (auto) Absolute Neuts (auto) Absolute Nucleated RBC Nucleated RBC % Sodium Potassium Chloride Carbon Dioxide Anion Gap BUN Creatinine Estim Creat Clear Calc Estimated GFR Glucose POC Capillary Glucose 118 H 128 H Calcium Magnesium Total Bilirubin AST ALT Alkaline Phosphatase Total Protein Albumin Quality VTE Prophylaxis VTE prophylaxis: mechanical ordered
[2024-09-12] MEDS: RIVAROXABAN 15 MG TABLET PO (16:02)
[2024-09-12 16:32] LABS: Glucose Point of Care 160 mg/dl (65-105)
[2024-09-12 20:30] LABS: Glucose Point of Care 217 mg/dl (65-105)
[2024-09-12] MEDS: ATORVASTATIN 40 MG TABLET PO (20:48)
[2024-09-12] MEDS: oxyBUTYnin CHLORIDE XL 5 MG TAB.ER.24 15 MG PO (20:48)
[2024-09-12] MEDS: INSULIN ASPART (*BKC) 100 UNITS/ML SUB-Q (20:51)
[2024-09-13 06:00] VITALS: BP 147/75; PULSE 82; RESP 16; TEMP 36.6; O2SAT 99
[2024-09-13 06:23] LABS: Basophils Percent Auto 0.5 % (0.2-1.2); Eosinophils Absolute Auto 0.4 K/mm3 (0-0.3); Eosinophils Percent Auto 4.7 % (0-4.4); Hematocrit 35.3 % (42.0-52.0); Hemoglobin 10.7 g/dL (14.0-18.0); Immature Granulocyte Absolute 0.03 K/mm3 (0.00-0.031); Immature Granulocyte Percent A 0.4 % (0-0.5); Lymphocytes Absolute Auto 2.38 K/mm3 (0.9-3.2); Lymphocytes Percent Auto 28.8 % (18.3-44.2); Mean Corpuscular HGB Conc 30.3 g/dl (32-36); Mean Corpuscular Hemoglobin 29.4 pg (26-34); Monocytes Absolute Auto 0.6 K/mm3 (0.1-0.6); Monocytes Percent Auto 7.2 % (2.6-8.5); Neutrophils Absolute Auto 4.8 K/mm3 (1.3-6.7); Neutrophils Percent Auto 58.4 % (45.5-73.1); Platelet Count Result 373 k/mm3 (150-375); Red Blood Count 3.64 M/mm3 (4.6-6.20); Red Cell Distribution Width 14.5 % (11.5-14.5); White Blood Count 8.3 K/mm3 (4.5-10.0)
[2024-09-13 06:35] LABS: Alanine Aminotransferase 18 U/L (6-50); Alkaline Phosphatase 37 U/L (38-126); Anion Gap 4 mmol/L (4-12); Aspartate Amino Transferase 23 U/L (17-59); Bilirubin,Total 1.1 mg/dL (0.2-1.3); Blood Urea Nitrogen 22 mg/dL (9-20); Calcium 8.5 mg/dL (8.4-10.2); Carbon Dioxide 28 mmol/L (22-30); Chloride 107 mmol/L (98-107); Estimated CRCL calculation 48 ml/min; Estimated Glomerular Filt Rate > 60; Glucose 135 mg/dL (65-110); Magnesium 2.5 mg/dL (1.6-2.3); Potassium 4.3 mmol/L (3.4-5.0); Sodium 139 mmol/L (137-145)
[2024-09-13 07:42] LABS: Glucose Point of Care 126 mg/dl (65-105)
[2024-09-13 07:58] VITALS: O2SAT 98
[2024-09-13] MEDS: FLUTICASONE/SALMETEROL 115-21 MCG INHALER 1 PUFF 2 PUFF INHALATION (07:58)
[2024-09-13] MEDS: MULTIVITAMINS /C LUTEIN (CENTRUM SILVER) TABLET *BKC 1 TAB PO (08:42)
[2024-09-13] MEDS: FERROUS SULFATE 325 MG TABLET DR PO (08:42)
[2024-09-13] MEDS: ASPIRIN 81 MG ENTERIC TABLET PO (08:42)
[2024-09-13] MEDS: VITAMIN B COMPLEX CAPSULE 1 CAP PO (08:42)
[2024-09-13] MEDS: dilTIAZem HCL CD 180 MG CAP.24HR PO (08:42)
[2024-09-13] MEDS: FINASTERIDE 5 MG TABLET BY MOUTH (08:42)
[2024-09-13] MEDS: CIPROFLOXACIN 500 MG TAB PO (08:42)
[2024-09-13] MEDS: OMEGA 3 POLYUNSAT FATTY ACIDS 1 GM CAP PO (08:42)
[2024-09-13] MEDS: LIDOCAINE 5% PATCH 1 PATCH TRANSDERM (08:42)
[2024-09-13] MEDS: ACETAMINOPHEN 325 MG TABLET 650 MG PO (10:24)
[2024-09-13 12:21] LABS: SARS-CoV-2 RNA PCR Negative (Negative)
[2024-09-13 12:29] LABS: Glucose Point of Care 125 mg/dl (65-105)
--- NOTE | 2024-09-13 12:39 | P.DS_ITS ---
DS: Admitting Diagnosis Discharge Date 09/13/24 Admitting Diagnosis Left shoulder and hip pain after a fall. DS: Discharge Diagnosis Discharge Diagnosis (1) Deep vein thrombosis (DVT) of right lower extremity: Code(s): I82.401 - Acute embolism and thrombosis of unspecified deep veins of right lower extremity Status: Acute DS: Summary Hospital Course Hospital Course: This is a pleasant 84-year-old male with paroxysmal atrial fibrillation on chronic anticoagulation, coronary artery disease, hypertension, hyperlipidemia, type 2 diabetes mellitus, chronic obstructive pulmonary disease, untreated obstructive sleep apnea, benign prostatic hyperplasia, chronic kidney disease, arthritis, and lumbar spinal stenosis with neurogenic claudication status post minimally invasive lumbar decompression at L3-L4 and L4-L5 earlier this month who presented to the emergency department from home for evaluation of left shoulder and hip pain after fall. He was walking down the stairs yesterday morning and when he got to the last step his legs gave out and he fell down onto his left side. He has had significant pain in his left shoulder and to lesser extent in the left hip since that time. He has had increasing pain in the shoulder since that time, to the point where he can barely even lifted up due to excruciating pain, and came in for evaluation. There was no head trauma or loss of consciousness in the fall and he denies antecedent symptoms prior to the fall. He voices frustration as he has been participating in PT since his surgery and he feels as though he is not improving. thinks he needs rehab. In the ED: Vital signs were stable on arrival. CTA of the head and cervical spine were without acute findings. X-rays of the left hip, pelvis, shoulder, and knee were also without acute findings. Physical therapy evaluated the patient in the ED and he did not do well. Care coordination was then contacted to see if he could be placed in a rehab facility however he requires preauthorization by his insurance and is being admitted in this setting. MRI brain showed acute stroke showed acute/subacute infarct in the right basal ganglia and adjacent insula. Neurology was consulted and evaluated patient however due to hematoma from fall recommended continuing Aspirin and Xarelto. Also on Lipitor. ECHO showed EF 60-65% and abnormal diastolic function. Carotid doppler no significant disease. Patient continues having left shoulder pain and sustained left hip waist hematoma from fall, tolerated [place] and Lidocaine patch. also managed for DVT, patient agreed to restart anticoagulation despite hematoma thus Xarelto was started at 15mg. Cardiology evaluated patient and recommended stopping Plaxis since stent has been over year. Thus patient was placed on Aspirin and discharged on ASpirin and Xarelto 15mg. managed for UTI and urine culture grew proteus mirabilis pansensitive and discharge on 4 more days of Cipro. F/u with PCP in 3-5 days, F/u with neurology, cardiology and ortho as instructed. Time Spent with Patient Time attestation: Total time spent providing and/or coordinating discharge services: DS: Data Data Completed and Pending Labs on day of discharge: Labs from last 24 hours 09/13/24 09/13/24 09/13/24 12:12 11:20 07:40 WBC RBC Hgb Hct MCV MCH MCHC RDW Plt Count MPV Immature Gran % (Auto) Neut % (Auto) Lymph % (Auto) [place] % (Auto) Eos % (Auto) Baso % (Auto) Lymph # (Auto) [place] # (Auto) Eos # (Auto) Baso # (Auto) Abs Immat Gran (auto) Absolute Neuts (auto) Absolute Nucleated RBC Nucleated RBC % Sodium Potassium Chloride Carbon Dioxide Anion Gap BUN Creatinine Estim Creat Clear Calc Estimated GFR Glucose POC Capillary Glucose 125 H 126 H Calcium Magnesium Total Bilirubin AST ALT Alkaline Phosphatase Total Protein Albumin SARS-CoV-2 RNA (RT-PCR) Negative 09/13/24 09/12/24 09/12/24 05:51 20:27 16:28 WBC 8.3 RBC 3.64 L Hgb 10.7 L Hct 35.3 L MCV 97.0 MCH 29.4 MCHC 30.3 L RDW 14.5 Plt Count 373 MPV 9.0 Immature Gran % (Auto) 0.4 Neut % (Auto) 58.4 Lymph % (Auto) 28.8 [place] % (Auto) 7.2 Eos % (Auto) 4.7 H Baso % (Auto) 0.5 Lymph # (Auto) 2.38 [place] # (Auto) 0.6 Eos # (Auto) 0.4 H Baso # (Auto) 0.0 Abs Immat Gran (auto) 0.03 Absolute Neuts (auto) 4.8 Absolute Nucleated RBC 0.000 Nucleated RBC % 0.0 Sodium 139 Potassium 4.3 Chloride 107 Carbon Dioxide 28 Anion Gap 4 BUN 22 H Creatinine 1.10 Estim Creat Clear Calc 48 Estimated GFR > 60 Glucose 135 H POC Capillary Glucose 217 H 160 H Calcium 8.5 Magnesium 2.5 H Total Bilirubin 1.1 AST 23 ALT 18 Alkaline Phosphatase 37 L Total Protein 6.0 L Albumin 3.0 L SARS-CoV-2 RNA (RT-PCR) Discharge Plan Discharge Attending physician on discharge: Kenyon Fernandez Consulting providers: Maximilian Martel; Ventura Wright; Colby Noonan Discharging Clinician: Kenyon Fernandez Anticipated Discharge Date/Time: 09/13/24 12:19 Patient Disposition: SNF Activity: as tolerated Diet: as tolerated and diabetic Patient Language: Syriac Stand Alone Forms: General Discharge Information Follow-up/Referrals: Maximilian Martel MD [Physician] - (F/u with Ortho as instructed) Patt Castellon APRN [Primary Care Provider] - (F/u with PCP in 3-5 days ) Colby Noonan DO [Physician] - (F/u with cardiology as instructed) Ventura Wright MD [Physician] - (F/u with Neurology as instructed) Discharge Medications: New hydrocodone-acetaminophen 5-325 mg Tablet 1 tablet PO Q4HR PRN (Reason: Pain Rated 4-6) 10 Days Qty: 7 0RF Xarelto 15 mg Tablet 15 mg PO DAILY@1700 30 Days Qty: 30 1RF ciprofloxacin HCl 500 mg Tablet 500 mg PO Q12HR 4 Days Qty: 8 0RF lidocaine [Lidoderm] 5 % Adhesive Patch,Medicated 1 patch transdermal DAILY 10 Days Qty: 10 0RF aspirin 81 mg Tablet,Delayed Release (Dr/Ec) 81 mg PO QAM 30 Days Qty: 30 2RF Continued vitamin B complex [B Complex-Vitamin B12] Tablet 1 tablet PO DAILY Adults Multivitamin 18 mg iron-400 mcg-25 mcg Tablet 1 tablet PO DAILY atorvastatin 40 mg tablet 40 mg PO QPM omega-3 fatty acids Capsule 1,000 mg PO DAILY ferrous sulfate 325 mg (65 mg iron) tablet 325 mg PO DAILY Qty: 90 0RF albuterol sulfate [ProAir HFA] 90 mcg/actuation HFA aerosol inhaler 2 puff INHALATION Q4H PRN (Reason: shortness of breath or wheezing) Qty: 8.5 5RF metformin 1,000 mg tablet 1,000 mg PO DAILY Qty: 180 1RF diltiazem HCl 180 mg capsule,extended release 24hr 180 mg PO Q24H Rx Instructions: TAKE 1 CAPSULE BY MOUTH EVERY DAY (DME) lancets [Lancets, Super Thin] Misc See Rx Instructions .ROUTE .MEDSUPPLY Qty: 100 2RF Rx Instructions: Use to check blood sugar daily (DME) Contour Next Test Strips Strip See Rx Instructions .ROUTE .MEDSUPPLY Qty: 100 0RF Rx Instructions: Use to test blood sugar once daily finasteride 5 mg tablet See Rx Instructions .ROUTE .COMPLEX Qty: 90 1RF Dose Instruction: TAKE 1 TABLET BY MOUTH EVERY DAY Rx Instructions: TAKE 1 TABLET BY MOUTH EVERY DAY fluticasone propion-salmeterol [Wixela Inhub] 250-50 mcg/dose blister with device See Rx Instructions .ROUTE .COMPLEX Qty: 180 1RF Dose Instruction: INHALE 1 PUFF BY MOUTH TWICE A DAY Rx Instructions: INHALE 1 PUFF BY MOUTH TWICE A DAY oxybutynin chloride 15 mg tablet extended release 24hr 15 mg PO HS Qty: 90 1RF Discontinued Xarelto 20 mg tablet 20 mg PO QPM Qty: 30 5RF Rx Instructions: must administer with evening meal clopidogrel 75 mg tablet See Rx Instructions .ROUTE .COMPLEX Qty: 90 2RF Dose Instruction: TAKE 1 TABLET BY MOUTH EVERY DAY Rx Instructions: TAKE 1 TABLET BY MOUTH EVERY DAY Date of admission: 09/10/24 13:21 Primary Care Provider: Patt Castellon Admitting Provider: Camille Szymanski Attending physician on admission: Kenyon Fernandez Condition: Stable
[2024-09-13 12:55] VITALS: BP 112/80; PULSE 77; RESP 16; TEMP 36.9; O2SAT 98
== END 2024-09-13 13:55 | DRG 65 ==
LOC: ANHED 12:47 → ANH3MEDSUR 13:16
PROVIDERS: General Practice; Nurse Practitioner Family; Physician Assistant; Psychiatry & Neurology Neurology; Admitting Provider Hospitalist; Emergency Provider Emergency Medicine; PCP Nurse Practitioner Family; Visit Provider Internal Medicine
DX: I63.9 Cerebral infarction, unspecified (principal); I48.20 Chronic atrial fibrillation, unspecified; I82.441 Acute embolism and thrombosis of right tibial vein; I82.451 Acute embolism and thrombosis of right peroneal vein; N39.0 Urinary tract infection, site not specified; S30.1XXA Contusion of abdominal wall, initial encounter; W10.9XXA Fall (on) (from) unspecified stairs and steps, initial encounter; B96.4 Proteus (mirabilis) (morganii) as the cause of diseases classified elsewhere; D63.1 Anemia in chronic kidney disease; E11.22 Type 2 diabetes mellitus with diabetic chronic kidney disease; E78.2 Mixed hyperlipidemia; E78.5 Hyperlipidemia, unspecified; G47.33 Obstructive sleep apnea (adult) (pediatric); H53.2 Diplopia; I12.9 Hypertensive chronic kidney disease with stage 1 through stage 4 chronic kidney disease, or unspecified chronic kidney disease; I25.10 Atherosclerotic heart disease of native coronary artery without angina pectoris; J44.9 Chronic obstructive pulmonary disease, unspecified; M15.0 Primary generalized (osteo)arthritis; N40.0 Benign prostatic hyperplasia without lower urinary tract symptoms; N18.30 Chronic kidney disease, stage 3 unspecified; R91.8 Other nonspecific abnormal finding of lung field; R29.6 Repeated falls; Z79.01 Long term (current) use of anticoagulants; Z20.822 Contact with and (suspected) exposure to COVID-19; Z79.84 Long term (current) use of oral hypoglycemic drugs; Z66 Do not resuscitate; Z98.890 Other specified postprocedural states; Z95.5 Presence of coronary angioplasty implant and graft
CPT/HCPCS: 36415; 70450; 70551; 71045; 71100; 71250; 72125; 73030; 73502; 73564; 73700; 74176; 80053; 80061; 81001; 82607; 82746; 82948; 83735; 85025; 85027; 87086; 87186; 87635; 93005; 93306; 93880; 93970; 94640; 96374; 96375; 97110; 97116; 97161; 97166; 97530; 97535; 99285; A9270; G0378; J0696; J1815; J2060

== ENCOUNTER 2024-12-31 10:00 | Outpatient (RCR) | payer OTHER, SELFPAY ==
--- NOTE | 2024-11-21 11:06 | OPREHPOC ---
Outpatient Therapy Plan of Care This is a Multidisciplinary Plan of Care that may contain components documented by all disciplines (PT, OT, and ST.) PT Problem 1 PT Problem #1 Knowledge Deficit PT Goal 1 Goal / Goal Update *independent with HEP * good safety awareness Target Visit 8 PT Problem 2 PT Problem #2 Impaired Vestibular System PT Goal 1 Goal / Goal Update pt not report vestibular s/s- dizziness with : 1* supine/sit 2* sit/stand 3* rolling in bed 4* walking Target Visit 8
--- NOTE | 2024-11-21 11:06 | PTOPEVAL1 ---
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 Onset about 1 year Subjective Information have issues with dizziness/ room spinning when lie down in bed, rolling onto his R side and when first stands up for about 10 seconds when walking, have to hold onto something due to weakness and unsteady, sometimes dizzy also; had therapy 1x for dizziness in the past and it helped; in the past 6 months have fallen 1x just finished taking med for UTI; sleep in a recliner due to dizziness and weakness have been home about 3 months from in pt/SNF for therapy activity: do exercises for legs and arms; use walker all the time for walking, stay on main level---do not go up stairs or down stairs; , Genoveva does all home chores; pt independent with self care, sometimes needs help getting up from a chair Reported Pain Level Pain Score 3: Self Report neck Additional Pain Score Comments increase pain with turning head to the L Assessment PT Clinical Summary Christian has the diagnosis of BPPV. He also has weakness and decreased mobility, with recent SNF for in pt rehab and using a walker. He is at home with his and she does all the home tasks. Dizziness Handicap index rating of 60 . History for risk factors of dizziness: CVA, Cardiac surgery, neck pain, back pain, diabetes, HTN, long COVID, multiple meds. 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 Plan of Care Interventions Neuro Re-education,Patient/Caregiver Education, Therapeutic Activities,Therapeutic Exercise PT Services Indicated Yes Treatment Frequency and 1-2 x/wk for 8 visits Duration These treatments will address the objective and functional deficits as defined above. The patient will be advanced safely and appropriately in order for the patient to progress towards his/her prior level of function. Additional exercises will be introduced and as well as a comprehensive home exercise program upon discharge, if needed, ?to ensure carryover of functional gains achieved in the clinic. This treatment plan has been reviewed and agreement upon by the patient.
--- NOTE | 2024-12-31 10:49 | OPREHPOC ---
Outpatient Therapy Plan of Care This is a Multidisciplinary Plan of Care that may contain components documented by all disciplines (PT, OT, and ST.) PT Problem 1 PT Problem #1 Knowledge Deficit PT Goal 1 Goal / Goal Update *independent with HEP * good safety awareness 12-31-24 d/c goals met Target Visit 8 Progress Met PT Problem 2 PT Problem #2 Impaired Vestibular System PT Goal 1 Goal / Goal Update pt not report vestibular s/s- dizziness with : 1* supine/sit 2* sit/stand 3* rolling in bed 4* walking 12-31-24 d/c goals met Target Visit 8 Progress Met
--- NOTE | 2024-12-31 10:49 | PTOPDC ---
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 Onset about 1 year Subjective Information need to get eyes checked, been about one year ago, may need glasses; feel lightheaded and vision is hazy; have not had any falls since coming for therapy; my memory is not that great; still have neck pain, all the time it hurts and avoid moving my neck to make it hurt; also have back pain, going to have shots in back; had little dizziness last Thurs when standing up had little feeling of room moving, lasted 5 seconds, then gone; feel like I am overall weak and move slow; sleeps in recliner, flat on his back; vertigo does not bother me, only light headed now; weakness is my main problem. does not want any more therapy-- vertigo gone and legs are not going to get any stronger, doing exercises at home and have had therapy for legs in the past. Reported Pain Level Pain Score Self Report Additional Pain Score Comments stays 3/10 all the time, try not to move my neck and make it hurt; Assessment PT Clinical Summary Christian has received 8 PT sessions. Today with the assessment: continues to have neck pain at 3/10 all the time and also reports low back pain and R knee giving out; has not had any falls since starting PT; does not report any dizziness but light headed and vision is hazy; self assessment Dizziness handicap index self rating of 50% limitation in activity level; he is able to perform sit/stand, supine/sit and rolling & eye tracking, gaze stabilization without vestibular issues; he has decreased cervical rotation to R and L with pain in neck; his static standing balance is decreased, about 20 seconds without UE support, unstable and L knee gives out on him; he sleeps in a recliner, flat on his back . Education completed for safety and HEP. He does not want any additional therapy for balance, LE strengthening. He is going to dr for treatment of LBP. Goals met for vestibular therapy. Discharge PT services. Plan of Care PT Services Indicated No
== END 2024-12-31 11:50 | disposition home or self-care (01) ==
LOC: ANHPT 10:00
PROVIDERS: PCP Nurse Practitioner Family; Visit Provider Nurse Practitioner Family
DX: H81.12 Benign paroxysmal vertigo, left ear (principal); H81.10 Benign paroxysmal vertigo, unspecified ear; R53.1 Weakness
CPT/HCPCS: 95992; 97110; 97112; 97140; 97161; 97530

== ENCOUNTER 2025-01-15 06:30 | Day surgery (SDC) | payer OTHER, SELFPAY ==
--- NOTE | 2025-01-02 12:52 | PC.NURSE ---
PRE-OPERATIVE [address] [address] 1. Report to the Surgery Center Waiting Room, the entrance is the first door on the right after passing through the automatic sliding doors, at time _0710__on pmip__4-0-37__. OR Time:___809__ . - Time changes happen often and if your time is changed the preop area will call you the afternoon before. - You and your visitor will be asked to self-screen and do not enter if you have any COVID symptoms. - Two visitors over, age 16 and older, are allowed.? NO children visitors are allowed at this time. - A mask is optional within the hospital at this time. 2. Patients may have light breakfast until 609 3. Take the following medications with a SIP of water the morning of surgery: 1. TAKE MEDICATIONS PRESCRIBED 2. 3. Medications to discontinue per physician order: 1. PER DR HERNANDEZ'S OFFICE STOP XARELTO AND ASPIRIN X7DAYS date to discontinue: 4. No make-up, nail czech, hairspray, perfume, deodorant, or body powder the day of surgery. No jewelry (including any body piercings) or valuables the day of surgery. Please take a shower or bath the night before, or the morning of, surgery with an antibacterial soap. Wear comfortable, loose fitting clothing. Children are encouraged to wear pajamas. - Jewelry must be removed prior to entering the operating room. Rings and piercings that are not removed will be cut off. The center will not accept responsibility for valuables. Please leave all valuables, including medications, at home the day of surgery. 5. When going home after surgery, a licensed motor vehicle escort driver must drive you home. NO public transportation without another adult. We recommend someone to stay with you, no alcoholic beverages, driving or important decision making for 24 hours after surgery. For pediatric surgeries, we recommend two adults to accompany a child home. 6. Follow any additional instructions given by your physician. Telephone instructions given to: PATIENT and asked if any additional questions and then verbalized understanding. Patient advised to call surgeon office or the surgery center at [phone] if any additional questions.
--- NOTE | ~2025-01-15 | XR_ITS ---
EXAM: XR fluoroscopy no charge - 01/15/2025 8:25 CDT History: 84 years old Male with REFUGIO INTRA-ARTICULAR SI JT STEROID INJ Fluoroscopy time: 48.2 seconds FINDINGS/ IMPRESSION: Multiple fluoroscopic images of sacroiliac joint injection. Reviewed, dictated and finalized at location N.
--- OUTSIDE RECORDS SUMMARY | 2025-01-15 06:32 | XMS_ITS | Clinical Summary ---
Author Organization [facility] [address] Address [address] [place] [address] Care Team Providers Care Environmental Health Officer Name Role Phone Jose Nolan MD Primary Care Provider [phone] Allergies Active Allergy Reactions Criticality Noted Date [...] 09/01/2023 Active atorvastatin (LIPITOR) 40 mg tablet TAKE 1 TABLET BY MOUTH EVERY DAY AT NIGHT 30 tablet 11 11/12/2024 Active Active Problems Problem Noted Date Diagnosed Date CAD (coronary artery disease) 09/01/2023 Coronary artery disease with angina pectoris Abnormal stress test 07/14/2023 Surgical History Surgery Date Site/Laterality Comments CARDIAC CATHETERIZATION SPINE SURGERY lumbar spine anterior aproach SPINE SURGERY cervical spine surgery Medical History Medical History Date Comments Sleep apnea Hypertension CAD (coronary artery disease) COPD (chronic obstructive pulmonary disease) Chronic kidney disease Type 2 diabetes mellitus Back pain Spinal stenosis, lumbar Family History [...] on file 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 Gender Identity Not on file Sexual Orientation [...] 8:35 AM CDT Height 180.3 cm (5' 11) 10/14/2023 8:35 AM CDT Body Mass Index [...] Fall Risk Assessment 10/13/2024 10/14/2023 Influenza Vaccine (#1) 2025 3, 01/22/2022, 02/12/2021, Additional history exists Zoster Vaccine Completed 10/05/2022, 01/22/2022 Medical Devices Implanted Type Area Aviation Medicine Specialist Device Identifier Shelf Expiration Date Model / Serial / Lot Medtronic Card Vasc Surgery 2.50 X 34mm [place] Rx Coronary Stent [id number] - [id number] Implanted:Qty: 1 on 09/01/2023 by Hitesh Moreau MD at [facility] Medtronic Card Vasc Surgery 06/17/2026 [id number] / / [id number] [employer] Device Vascular Closure Femoral Artery Bioabsorbable Dual Method Vascade 6-7fr Collagen [id number] - [id number] Implanted:Qty: 1 on 09/01/2023 by Hitesh Moreau MD at [facility] 03/10/2025 [id number] / / [id number] Medtronic Card Vasc Surgery 3.0 X 30mm [place] Rx Coronary Stent [id number] - [id number] Implanted:Qty: 1 on 10/14/2023 by Hitesh Moreau MD at [facility] Medtronic Card Vasc Surgery 10/13/2025 [id number] / / [id number] Insurance [facility] Care Teams Environmental Health Officer Relationship Specialty Start Date End Date Jose Nolan MD PCP - General Family Practice 05/31/23
--- NOTE | 2025-01-15 08:16 | WPDHPUPDATE1 ---
History and Physical Update Update Date/Time: 01/15/25 08:16 History and Physical has been reviewed, including an updated exam of the patient. There are NO changes in the patient's condition. Risks, benefits, and alternatives have been discussed and questions answered. Patient agrees to proceed with procedure.
--- NOTE | 2025-01-15 08:17 | P.OP_ITS ---
Procedure Note - Detailed Date of Procedure 01/15/25 Pre-op Diagnosis Sacroiliitis Post-op Diagnosis Same Procedure Performed Bilateral Sacroiliac Joint Steroid Injection under Fluoroscopic Guidance and with Contrast Control. Surgeon Jose Quinones MD Technical Translator None Anesthesia Local Description of Procedure INFORMED CONSENT: Risks, benefits and alternatives to the procedure were discussed in detail with the patient who expressed explicit understanding and consent to proceed. Patient was informed verbally and in written form regarding the risks associated with the procedure including the low risk of serious infection, bleeding/bruising, allergic reaction, nerve or organ injury, paralysis, procedural site pain or discomfort, worsening pain and/or mobility, failure to treat and/or disfigurement. The patient expressed explicit understanding and consent to proceed. All materials required for the procedure were available prior to procedure start. Site and side were marked prior to procedure and confirmed in the presence of the patient. PROCEDURE IN DETAIL: The patient was brought to the procedural suite and placed in the prone position. Patient was made comfortable with use of pillows under the head/chest, hips and ankles. Skin overlying the injection site on the affected side(s) was prepared broadly with ChloraPrep applicator and draped in a sterile manner. Aseptic technique was used throughout. The right SI joint was identified in the AP view and contralateral oblique angulation with caudal tilt was utilized to optimize visualization of the inferior and medial joint line representing the posterior portion of the joint. Local anesthesia was established by infiltration with approximately 5 mL of 2% lidocaine via a 1-1/2 inch 27-gauge needle. A 22-gauge 3.5 inch Quincke spinal needle was advanced until the needle entered the inferior third of the joint space approximately 1cm cephalad from its most inferior point. In the AP view, 0.5 mL of Omnipaque 300 contrast medium was injected after negative aspiration for CSF, blood or other bodily fluid, showing appropriate intra-articular spread of contrast without evidence of intravascular, perineural or intrathecal placement. A 1.5 mL solution containing 5 mg of dexamethasone in 0.5% PF bupivacaine was injected after repeat negative aspiration. Appropriate spread of the injectate was confirmed with washout of previous injected contrast. No parasthesias were elicited. Needle was removed completely intact without difficulty. The same exact procedure was repeated for all remaining levels on the contralateral side, left SI joint, modified as necessary to accommodate for the new target location with identical findings/results and no evidence of complication. Images were saved and documented in the patient chart. Patient's skin was cleansed and sterile bandage applied. The patient tolerated the procedure well. The patient was transported to the recovery area in stable condition where they were observed for an appropriate amount of time prior to discharge, without evidence of complication. The patient was instructed to avoid excessive activity for the next 48 hours, including climbing and frequent use of stairs. Showers only for 48 hours. They were instructed not to drive or operate heavy machinery for 24 hours. They are to monitor for severe headaches, fevers, chills, night sweats, erythema/swelling at the site or any other signs of infection, bleeding/bruising, bowel or bladder changes as well as new pain, weakness or numbness in the upper or lower extremity. Should they notice these changes, they are instructed to call our office immediately or report directly to the nearest Emergency Department if no answer or if after posted office hours. COMPLICATIONS: None COMMENTS: None CONTRAST WASTED: 29mL Omnipaque 300. Complications No immediate complications Condition Stable Disposition Same day [facility] Billing Surgery - Charge Forward: Surgery Billing
[2025-01-15] MEDS: LIDOCAINE 1% PF INJ 5 ML VIAL INFILTRATE (08:33)
[2025-01-15 08:35] VITALS: BP 186/87; PULSE 69; RESP 23; O2SAT 97
[2025-01-15] MEDS: BUPivacaine HCL 0.5% 10 ML AMP 5 ML INFILTRATE (08:35)
[2025-01-15] MEDS: dexAMETHasone SOD PHOS INJ 10 MG/ML 1 ML VIAL IM (08:36)
[2025-01-15 08:44] VITALS: BP 132/68; PULSE 65; RESP 20; O2SAT 99
== END 2025-01-15 08:58 | disposition home or self-care (01) ==
PROVIDERS: PCP Nurse Practitioner Family; Visit Provider Anesthesiology Pain Medicine
PROC: (CPT G0260; principal; 2025-01-15 08:10)
DX: M46.1 Sacroiliitis, not elsewhere classified (principal)
CPT/HCPCS: G0260 ×2; 27096; 99199; J1100

== ENCOUNTER 2025-02-03 12:52 | Inpatient (IN) | payer OTHER, SELFPAY ==
--- NOTE | ~2025-02-03 | CT_ITS ---
EXAMINATION: CT UE LT w con DATE: 02/06/2025 13:08 INDICATION: Left elbow soft tissue mass TECHNIQUE: High resolution computed tomography (CT) of the left elbow extending from the proximal humeral diaphysis through the distal radial and ulnar diaphyses was performed with 100 mL Omnipaque-350 intravenous contrast. Additional sagittal and coronal reconstructions were performed. Automated expos ure control and iterative reconstruction technique were employed. The dose- length product was 516.94 mGy-cm. COMPARISON: Ultrasound dated 02/05/2025 FINDINGS: Bone alignment is normal. No fracture. Mild osteoarthritis at the left elbow. No elbow joint effusion. Small amount of heterotopic ossification at the lateral epicondylar origin of the common extensor tendon wad. Prominent subcutaneous edema beginning at the posterior aspect of the distal upper arm extending posterior to the elbow and into the dorsal aspect of the proximal to mid right forearm. There is a 5.7 x 4.9 x 2.0 cm fusiform soft tissue density lesion arising from either the skin or superficial most subcutaneous tissues which appears to correspond to the hypoechoic lesion on prior ultrasound. No other abnormal masses or fluid collections identified. IMPRESSION: 1. Nonspecific 5.7 x 4.9 x 2.0 cm fusiform soft tissue density at or immediately deep to the skin surface at the dorsal aspect of the proximal forearm for which differential would include neoplasm either benign or malignant or complex fluid collection such as hematoma or abscess in the appropriate clinical setting. Correlate clinically and would consider biopsy and/or aspiration for further evaluation. Reviewed, dictated and finalized at location A. IMPRESSION: 1. Nonspecific 5.7 x 4.9 x 2.0 cm fusiform soft tissue density at or immediatel y deep to the skin surface at the dorsal aspect of the proximal forearm for whi ch differential would include neoplasm either benign or malignant or complex fl uid collection such as hematoma or abscess in the appropriate clinical setting. Correlate clinically and would consider biopsy and/or aspiration for further e valuation.
--- NOTE | ~2025-02-03 | XR_ITS ---
XR lumbar spine 2-3V Indication: back pain Comparison: None Findings: Moderate loss of vertebral height throughout. Mild levoconvex scoliosis. Anterior fixation of L5 and S1 with disc prostheses. Grade 1 retrolisthesis L1 on L2 L2 on L3 and L3 on L4, no acute fracture. Moderate loss of the remaining disc height throughout. Soft tissues unremarkable Impression: No acute abnormality. Reviewed, dictated and finalized at location A. Impression: No acute abnormality.
--- NOTE | ~2025-02-03 | CT_ITS ---
EXAMINATION: CT shoulder LT wo con DATE: 02/03/2025 19:47 INDICATION: Inability to move the right shoulder TECHNIQUE: High resolution computed tomography (CT) of the left shoulder was performed without intravenous contrast. Additional sagittal and coronal reconstructions were performed. Automated exposure control and iterative reconstruction technique were employed. The dose-length product was 318.84 mGy-cm. COMPARISON: Radiographs dated 02/03/2025 FINDINGS: Chronic left rotator cuff arthropathy with prominent fatty atrophy of the supraspinatus and infraspinatus muscle bellies consistent with sequela of corresponding chronic rotator cuff tear. There is very cephalad subluxation of the humeral head with respect to the glenoid and acromion. There is some sec ondary remodeling of the undersurface of the acromion is also some underlying mild cystlike changes. There is an either normal variant chronic unfused acromial os acromiale he versus chronic nonunited nondisplaced fracture fragment at the anterior tip of the acromion. Moderate acromioclavicular osteoarthritis. There is also mild to moderate glenohumeral osteoarthritis. No glenohumeral joint effusion. Visualized portion of the left lung is clear. No interval change since 07/06 in a couple mildly enlarged, likely chronic reactive AP window lymph nodes, the larger measuring 1.1 cm in maximal short axis diameter. No pathologically enlarged lymphadenopathy in the left axilla or at the left hilum. Mild upper thoracic levoscoliosis with bridging osteophytes at multiple levels consistent with diffuse idiopathic skeletal hyperostosis (DISH) and anterior fusion at C6-T1. IMPRESSION: 1. 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 No acute osseous abnormality. 2. Moderate left acromioclavicular osteoarthritis. 3. Mild upper thoracic levoscoliosis with severe spondylosis and bridging osteophytes at multiple levels consistent with diffuse idiopathic skeletal hyperostosis (DISH). Reviewed, dictated and finalized at location A. IMPRESSION: 1. Chronic left rotator cuff arthropathy with mild to moderate glenohumeral ost eoarthritis. No acute osseous abnormality. 2. Moderate left acromioclavicular osteoarthritis. 3. Mild upper thoracic levoscoliosis with severe spondylosis and bridging osteo phytes at multiple levels consistent with diffuse idiopathic skeletal hyperosto sis (DISH).
--- NOTE | ~2025-02-03 | XR_ITS ---
X-rays left elbow X-rays left wrist Indication: Fall Comparison: None Technique: 3 views left elbow, 3 views left wrist Findings/Impression: Left elbow: 1. No fracture or dislocation left elbow. 2. 2 tiny metallic foreign bodies within soft tissues ventral surface distal upper arm. Left wrist: 1. No fracture or dislocation left wrist. 2. Severe narrowing radiocarpal joint space with [id number] contact between lunate and radius. 3. Mild degenerative changes carpal rows. 4. Severe degenerative changes of basal joint of thumb. Reviewed, dictated and finalized at location R.
--- NOTE | ~2025-02-03 | XR_ITS ---
Examination: XR ankle LT 2V Clinical History: pain, swelling, BRUISING Comparison: None Technique: 2 views left ankle Findings/impression: 1. No fracture or dislocation left ankle, given 2 view series. 2. Diffuse severe soft tissue swelling. 3. Diabetic arteriopathy. 4. Calcaneal spur at plantar fascia insertion site. Reviewed, dictated and finalized at location R.
--- NOTE | ~2025-02-03 | XR_ITS ---
EXAMINATION: XR shoulder LT min 2V, 02/03/2025 16:45 CDT HISTORY: Fall COMPARISON: No comparisons available. Findings: No acute fracture or malalignment. Moderate degenerative changes Soft tissues unremarkable. Impression: No acute fracture or malalignment. Reviewed, dictated and finalized at location A. Impression: No acute fracture or malalignment.
--- NOTE | ~2025-02-03 | XR_ITS ---
EXAMINATION: XR foot LT 2V, 02/05/2025 10:45 CDT HISTORY: left foot pain COMPARISON: No comparisons available. Findings: There is a healing fracture proximal aspect proximal phalanx fifth digit. No significant degenerative changes. Soft tissues unremarkable. Impression: Healing fracture detailed above Reviewed, dictated and finalized at location A. Impression: Healing fracture detailed above
--- NOTE | ~2025-02-03 | US_ITS ---
US soft tissue UE LT 02/05/2025 13:57 Indication: Left arm swelling Procedure: Soft tissue ultrasound of the left upper extremity Comparison: No prior studies for comparison. Findings: In the area palpable concern within the left arm at the elbow there is a complex hypoechoic partially cystic mass measuring 4 x 2.3 x 3.3 cm. This lesion demonstrates heterogeneous internal echotexture with posterior acoustic enhancement present. There is peripheral vascularity by Doppler evaluation. No obvious internal calcification. Impression: 1: Complex partially cystic soft tissue mass of the left arm. Differential diagnosis includes soft tissue sarcoma, peripheral nerve sheath tumor, chronic organized hematoma and abscess or infected cyst. Consider cross-sectional imaging with MRI with and without contrast for further characterization. Biopsy recommended for definitive diagnosis. If infection is suspected, consider aspiration for culture. Reviewed, dictated and finalized at location O. Impression: 1: Complex partially cystic soft tissue mass of the left arm. Differential diag nosis includes soft tissue sarcoma, peripheral nerve sheath tumor, chronic orga nized hematoma and abscess or infected cyst. Consider cross-sectional imaging w ith MRI with and without contrast for further characterization. Biopsy recommen ded for definitive diagnosis. If infection is suspected, consider aspiration fo r culture.
[2025-02-03 12:52] VITALS: BP 153/83; PULSE 95; RESP 20; TEMP 36.6; O2SAT 99
--- NOTE | 2025-02-03 13:15 | ED.FALL ---
HPI - Fall General Chief Complaint: Fall Stated Complaint: fall Time Seen by Provider: 02/03/25 13:07 Source: patient and EMS Mode of arrival: EMS Limitations: no limitations History of Present Illness HPI Narrative: 84 years old white male came from home by ambulance, ground level fall, landed on the left upper extremity, complaining of left elbow and left wrist pain, he denies other injuries. Patient currently on Eliquis for atrial fibrillation. Patient did not use his walker, was trying to reach out to get something lost his balance and fell. No head injury Related Data Home Medications ?Medication ?Instructions ?Recorded ?Confirmed ?Last Taken ?Type multivit with minerals-iron 18 1 tablet PO DAILY 12/10/21 02/01/25 01/15/25 History mg-folic ac 400 mcg-vit K 25 mcg tablet (Adults Multivitamin) vitamin B complex (B 1 tablet PO DAILY 12/10/21 02/01/25 09/04/24 History Complex-Vitamin B12 tablet) atorvastatin 40 mg tablet 40 mg PO QPM 10/21/23 02/01/25 01/14/25 History omega-3 fatty acids 1,000 mg PO DAILY 04/09/24 02/01/25 09/04/24 History Allergies Allergy/AdvReac Type Severity Reaction Status Date / Time Opioids - Morphine Analogues AdvReac Intermediate Nausea and Verified 02/03/25 12:59 Vomiting Review of Systems Review of Systems: All systems reviewed & are unremarkable except as noted in HPI and below PMFSH Past Medical History Medical History Hip pain, left Frequent falls Unable to ambulate Acute postoperative pain Hematoma Fall Left shoulder pain Infarction of right basal ganglia Confusion Chronic kidney disease, stage 3 Chronic anticoagulation Cerebral cavernoma Obstructive sleep apnea intolerant to CPAP Lumbosacral stenosis with neurogenic claudication with epidural steroid injection L4-L5 December 2022 Mild cognitive impairment COPD with asthma Lumbosacral radiculopathy Claudication of both lower extremities Postlaminectomy syndrome Lumbosacral spondylosis Long COVID Atrial fibrillation Benign non-nodular prostatic hyperplasia without lower urinary tract symptoms Essential hypertension 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 Surgical History Surgical History History of lumbar discectomy (08/2024) minimally invasive at L3-L4 and L4-L5 History of lumbar fusion History of cardiac catheterization (03/2023) multivessel coronary disease to 80% stenosis of the proximal LAD 70% stenosis midportion of LAD very small diagonal branch, proximal and mid left circ have luminal irregularities 90% long stenosis left circumflex, small caliber obtuse marginal branch with mild diffuse disease obtuse marginal 2 has a moderate stenosis of the midportion right coronary artery is dominant vessel with 90% stenosis of the midportion and mid RPDA has 2 tandem stenosis is of 60-70% the patient was referred for CV surgery however the patient then underwent staged procedure at [facility] with PCI and stent to mid distal left circ and in September 2023 he had a PCI to the mid RCA History of cataract surgery Family History Family History Sibling Patient's sister is in good health Patient's brother is in good health Father Heart disease Acute myocardial infarction Telangiectasia Bmjru-Mrfbt-Utddq disease Angiodysplasia AVM (arteriovenous malformation) Mother Acute myocardial infarction Social History Social History Social History: Surrogate medical decision maker: Genoveva Villa, spouse. Code status: DO NOT RESUSCITATE. Smoking packs per day: 0.5 Smoking cigarettes per day: 10.0 Years smoked: 2 Smoking pack-years: 1.00 Smoking status: Former smoker Second hand tobacco smoke exposure: No Additional smoking assessment comments: quit smoking in his 30s Alcohol intake: never Substance use: never Substance use type: does not use Do You Feel Safe in your Home?: Yes Lack of Transportation: No Lack of Food: Never True Current Housing: I Have Housing Concerned About Future Housing: No Difficulty Paying Gas/Electric Bills: No Difficulty Paying for Meds: No Currently Unemployed: No Education: Grade School Difficulty w/ Childcare or Family Care: No Living arrangements: with family Additional living arrangements comments: Lives with in [place]. 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 Spiritual care concerns: No Exam Narrative: General appearance: Well-developed, well-nourished Skin: Skin tear at left elbow posteriorly 1 cm, and left wrist 1 cm laterally, with active bleeding, stopped with pressure dressing Head: Normocephalic, nontraumatic Eyes: Clear conjunctiva ENT: Oropharynx normal, ears normal, nose normal Neck: Supple, nontender Chest and respiratory: Airway patent, no respiratory distress, no accessory muscle use Heart: Regular rate/rhythm Abdomen: Soft, nontender, no organomegaly, quiet bowel sounds Vascular: Normal peripheral pulses, normal capillary refill. Musculoskeletal: Diffuse tenderness left elbow and left wrist, no deformity Neurologic: Alert and oriented ?3, SURVEYOR MINE is normal as tested, no gross motor deficit Course Vital Signs Vital signs: Vital Signs Temperature 36.6 C 02/03/25 12:52 Pulse Rate 95 02/03/25 12:52 Respiratory Rate 20 02/03/25 12:52 Blood Pressure 153/83 H 02/03/25 12:52 Pulse Oximetry 99 02/03/25 12:52 Oxygen Delivery Room Air 02/03/25 12:52 Temperature 36.6 C 02/03/25 12:52 Pulse Rate 95 02/03/25 12:52 Respiratory Rate 20 02/03/25 12:52 Blood Pressure 153/83 H 02/03/25 12:52 Pulse Oximetry 99 02/03/25 12:52 Oxygen Delivery Room Air 02/03/25 12:52 Procedures Other Procedure Procedure 1: Other Procedure: Pressure dressing was applied on the patient on arrival to the ED on the left elbow and left wrist because of the active bleeding. X-ray of the left elbow and left wrist showed no acute osseous abnormality Pressure dressing was removed, no active bleeding at this time, pressure dressing applied again to go home with. MDM - Fall MDM Narrative Medical decision making narrative: Patient came from home by ambulance after ground level fall. Vital signs are stable Physical examination showing skin tear left elbow posteriorly and left wrist with active bleeding Bleeding was controlled by pressure dressing, 1 hour later removed, no more active bleeding, dressing was placed again to prevent any future bleeding within the next 48 hours. Differential diagnosis, left wrist, left elbow, left shoulder fracture X-ray of the left wrist, left elbow and left shoulder showed no acute osseous abnormality Patient is telling me that he can not go home because the severity of pain of left upper extremity and inability to go up stairs without financial sales assistant and would like to be placed to a longterm. at the bedside. manager willow consult, cannot place the patient today, admit 24 hours observation for placement tomorrow. Differential Diagnosis Differential diagnosis: Likely other (As above) Critical Care Time Critical Care Time Critical Care Time: No Discharge Plan Discharge Clinical Impression: Avulsion of skin, Hematoma, Contusion Patient Disposition: Home Condition: Guarded Prognosis Patient Language: Kuwaiti Prescriptions: No Action vitamin B complex [B Complex-Vitamin B12] Tablet 1 tablet PO DAILY Adults Multivitamin 18 mg iron-400 mcg-25 mcg Tablet 1 tablet PO DAILY atorvastatin 40 mg tablet 40 mg PO QPM omega-3 fatty acids Capsule 1,000 mg PO DAILY albuterol sulfate [ProAir HFA] 90 mcg/actuation HFA aerosol inhaler 2 puff INHALATION Q4H PRN (Reason: shortness of breath or wheezing) Qty: 8.5 5RF Xarelto 15 mg Tablet 15 mg PO DAILY@1700 30 Days Qty: 30 1RF aspirin 81 mg Tablet,Delayed Release (Dr/Ec) 81 mg PO QAM 30 Days Qty: 30 2RF (DME) lancets [Lancets, Super Thin] Misc See Rx Instructions .ROUTE .MEDSUPPLY Qty: 100 2RF Rx Instructions: Use to check blood sugar daily (DME) Contour Next Test Strips Strip See Rx Instructions .ROUTE .MEDSUPPLY Qty: 100 0RF Rx Instructions: Use to test blood sugar once daily finasteride 5 mg tablet See Rx Instructions .ROUTE .COMPLEX Qty: 90 1RF Dose Instruction: TAKE 1 TABLET BY MOUTH EVERY DAY Rx Instructions: TAKE 1 TABLET BY MOUTH EVERY DAY oxybutynin chloride 15 mg tablet extended release 24hr 15 mg PO HS Qty: 90 1RF metformin 1,000 mg tablet 1,000 mg PO DAILY Qty: 180 1RF fluticasone propion-salmeterol [Wixela Inhub] 250-50 mcg/dose blister with device See Rx Instructions .ROUTE .COMPLEX Qty: 180 1RF Dose Instruction: INHALE 1 PUFF BY MOUTH TWICE A DAY Rx Instructions: INHALE 1 PUFF BY MOUTH TWICE A DAY diltiazem HCl 180 mg capsule,extended release 24hr See Rx Instructions .ROUTE .COMPLEX Qty: 90 2RF Dose Instruction: TAKE 1 CAPSULE BY MOUTH EVERY DAY Rx Instructions: TAKE 1 CAPSULE BY MOUTH EVERY DAY ferrous sulfate 325 mg (65 mg iron) tablet 325 mg PO DAILY Qty: 90 0RF Follow-up/Referrals: Patt Castellon APRN [Primary Care Provider, Internal Medicine]
--- OUTSIDE RECORDS SUMMARY | 2025-02-03 13:28 | XMS_ITS | Clinical Summary ---
Author Organization 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 Gender Identity Not on file Sexual Orientation [...] (2 of 2 - PCV) 01/22/2023 01/22/2022 Fall Risk Assessment 10/13/2024 10/14/2023 Covid-19 Vaccine (2024-2 6 season) 2025 02/21/2022, 05/26/2021, 09/23/2020 Influenza Vaccine (#1) 2025 3, 01/22/2022, 02/12/2021, Additional history exists Zoster Vaccine Completed 10/05/2022, 01/22/2022 Medical Devices Implanted Type Area Industrial 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 Device Identifier Shelf Expiration Date Model / Serial / Lot Medtronic Card Vasc Surgery 2.50 X 34mm Dovray [place] Rx Coronary Stent [id number] - [id number] Implanted:Qty: 1 on 09/01/2023 by Hitesh Moreau MD at [facility] Medtronic Card Vasc Surgery 06/17/2026 [id number] / / [id number] [employer] [facility] Device Vascular Closure Femoral Artery Bioabsorbable Dual Method Vascade 6-7fr Collagen [id number] - [id number] Implanted:Qty: 1 on 09/01/2023 by Hitesh Moreau MD at [facility] 03/10/2025 [id number] / / [id number] Medtronic Card Vasc Surgery 3.0 X 30mm Cole [place] Rx Coronary Stent [id number] - [id number] Implanted:Qty: 1 on 10/14/2023 by Hitesh Moreau MD at [facility] Medtronic Card Vasc Surgery 10/13/2025 [id number] / / [id number] Insurance [facility] Care Teams Butcherette Relationship Specialty Start Date End Date Jose Nolan MD PCP - General Family Practice 05/31/23
[2025-02-03 17:05] VITALS: BP 148/84; PULSE 89; RESP 20; O2SAT 100
[2025-02-03 17:16] LABS: Hematocrit 41.7 % (42.0-52.0); Hemoglobin 13.3 g/dL (14.0-18.0); Immature Granulocyte Percent A 0.4 % (0-0.5); Lymphocytes Absolute Auto 2.40 K/mm3 (0.9-3.2); Mean Corpuscular HGB Conc 31.9 g/dl (32-36); Mean Corpuscular Hemoglobin 30.5 pg (26-34); Mean Corpuscular Volume 95.6 fl (80-100); Nucleated Red Blood Cells Absolute Auto 0.000 K/mm3 (0.0-0.012); Nucleated Red Blood Cells Perc 0.0 % (0.0-0.2); Platelet Count Result 216 k/mm3 (150-375); Red Blood Count 4.36 M/mm3 (4.6-6.20); White Blood Count 11.2 K/mm3 (4.5-10.0)
[2025-02-03 17:33] LABS: Alanine Aminotransferase 25 U/L (6-50); Albumin Level 3.2 g/dL (3.5-5.1); Alkaline Phosphatase 50 U/L (38-126); Anion Gap 5 mmol/L (4-12); Aspartate Amino Transferase 30 U/L (17-59); Bilirubin,Total 1.2 mg/dL (0.2-1.3); Blood Urea Nitrogen 31 mg/dL (9-20); Calcium 8.5 mg/dL (8.4-10.2); Carbon Dioxide 25 mmol/L (22-30); Chloride 107 mmol/L (98-107); Estimated CRCL calculation 53 ml/min; Estimated Glomerular Filt Rate > 60; Glucose 126 mg/dL (65-110); Potassium 4.1 mmol/L (3.4-5.0); Sodium 137 mmol/L (137-145); Total Protein 5.6 g/dL (6.3-8.2)
[2025-02-03] MEDS: LIDOCAINE 2% GEL UROJET 10 ML PKG (17:33)
[2025-02-03 17:44] LABS: INR 1.4; Prothrombin Time 16.7 Seconds (11.1-14.7)
[2025-02-03 17:45] LABS: Add Urine Microscopic? YES; Appearance Urine Cloudy (Clear); Glucose Urine UA Negative (Negative); Leukocyte Esterase Ur 2+ LEU/UL (Negative); Nitrate Urine Positive (Negative); Non Pathogenic Casts 0-2; Specific Grav Ur 1.016 (1.001-1.035)
[2025-02-03 17:45] LABS: Partial Thromboplastin Time 34.8 Seconds (22.3-36.8)
[2025-02-03 17:54] VITALS: BMI 28.3
--- NOTE | 2025-02-03 18:56 | PM.IMHP ---
H&P: HPI History of Present Illness Date/Time: 02/03/25 18:56 Chief Complaint: fall Narrative: 84-year-old male patient presented today via ambulance after having a ground level fall where he landed on his left upper extremity. Patient tells me that he did not experience any dizziness nausea vomiting when trying to ambulate today at his house without using his walker. Patient reports that he was in able to maintain balance causing him to fall to the ground striking his left shoulder and left arm. The patient did suffer a skin tear to left arm causing moderate bleeding to skin tear site. ED work-up reveals: Patient was brought in via ambulance s/p: ground level fall, vitals were stable, physical exam showed skin tear left and below posturally and left wrist with active bleeding bleeding was controlled by pressure dressing, x-ray left wrist and left elbow left shoulder showed no acute osseous abnormality, patient reported that he is unable to move left arm. Patient requested further evaluation for mobility assistance citing he would not be able to ambulate at his home. Patient admitted in the setting now possible SNF placement due to new onset debility with latest fall. [facility] Past Medical History Medical History Hip pain, left Frequent falls Unable to ambulate Acute postoperative pain Hematoma Fall Left shoulder pain Infarction of right basal ganglia Confusion Chronic kidney disease, stage 3 Chronic anticoagulation Cerebral cavernoma Obstructive sleep apnea intolerant to CPAP Lumbosacral stenosis with neurogenic claudication with epidural steroid injection L4-L5 December 2022 Mild cognitive impairment COPD with asthma Lumbosacral radiculopathy Claudication of both lower extremities Postlaminectomy syndrome Lumbosacral spondylosis Long COVID Atrial fibrillation Benign non-nodular prostatic hyperplasia without lower urinary tract symptoms Essential hypertension 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 Surgical History Surgical History History of lumbar discectomy (08/2024) minimally invasive at L3-L4 and L4-L5 History of lumbar fusion History of cardiac catheterization (03/2023) multivessel coronary disease to 80% stenosis of the proximal LAD 70% stenosis midportion of LAD very small diagonal branch, proximal and mid left circ have luminal irregularities 90% long stenosis left circumflex, small caliber obtuse marginal branch with mild diffuse disease obtuse marginal 2 has a moderate stenosis of the midportion right coronary artery is dominant vessel with 90% stenosis of the midportion and mid RPDA has 2 tandem stenosis is of 60-70% the patient was referred for CV surgery however the patient then underwent staged procedure at [facility] with PCI and stent to mid distal left circ and in September 2023 he had a PCI to the mid RCA History of cataract surgery Family History Family History Sibling Patient's sister is in good health Patient's brother is in good health Father Heart disease Acute myocardial infarction Telangiectasia Aypga-Cqrmk-Tizym disease Angiodysplasia AVM (arteriovenous malformation) Mother Acute myocardial infarction Social History Social History Social History: Surrogate medical decision maker: Genoveva Villa, spouse. Code status: DO NOT RESUSCITATE. Smoking packs per day: 0.5 Smoking cigarettes per day: 10.0 Years smoked: 2 Smoking pack-years: 1.00 Smoking status: Former smoker Second hand tobacco smoke exposure: No Additional smoking assessment comments: quit smoking in his 30s Alcohol intake: never Substance use: never Substance use type: does not use Do You Feel Safe in your Home?: Yes Lack of Transportation: No Lack of Food: Never True Current Housing: I Have Housing Concerned About Future Housing: No Difficulty Paying Gas/Electric Bills: No Difficulty Paying for Meds: No Currently Unemployed: No Education: Grade School Difficulty w/ Childcare or Family Care: No Living arrangements: with family Additional living arrangements comments: Lives with in [place]. 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 Spiritual care concerns: No Meds Home Medications and Allergies Home Medications ?Medication ?Instructions ?Recorded ?Confirmed ?Type lancets (Lancets, Super Thin) #100 ea 01/30/20 02/01/25 Rx blood sugar diagnostic (Contour #100 ea 03/19/20 02/01/25 Rx Next Test Strips) multivit with minerals-iron 18 1 tablet PO DAILY 12/10/21 02/01/25 History mg-folic ac 400 mcg-vit K 25 mcg tablet (Adults Multivitamin) vitamin B complex (B 1 tablet PO DAILY 12/10/21 02/01/25 History Complex-Vitamin B12 tablet) atorvastatin 40 mg tablet 40 mg PO QPM 10/21/23 02/01/25 History finasteride 5 mg tablet See Rx Instructions .Route 01/02/24 02/01/25 Rx .COMPLEX #90 tabs omega-3 fatty acids 1,000 mg PO DAILY 04/09/24 02/01/25 History oxybutynin chloride 15 mg 15 mg PO HS #90 tabs 05/28/24 02/01/25 Rx tablet,extended release 24 hr albuterol sulfate 90 mcg/actuation 2 puff inhalation Q4H PRN 07/19/24 02/01/25 Rx aerosol inhaler (ProAir HFA) shortness of breath or wheezing #8.5 grams aspirin 81 mg tablet,delayed 81 mg PO QAM 30 days #30 tabs 09/13/24 02/01/25 Rx release rivaroxaban 15 mg tablet (Xarelto) 15 mg PO DAILY@1700 30 days #30 09/13/24 02/01/25 Rx tabs metformin 1,000 mg tablet 1,000 mg PO DAILY #180 tabs 11/22/24 02/01/25 Rx fluticasone 250 mcg-salmeterol 50 See Rx Instructions .Route 12/17/24 02/01/25 Rx mcg/dose blistr powdr for .COMPLEX #180 ea inhalation (Chip Inhub) diltiazem HCl 180 mg See Rx Instructions .Route 01/02/25 02/01/25 Rx capsule,extended release 24 hr .COMPLEX #90 caps ferrous sulfate 325 mg (65 mg 325 mg PO DAILY #90 tabs 01/17/25 02/01/25 Rx iron) tablet Allergies Allergy/AdvReac Type Severity Reaction Status Date / Time Opioids - Morphine Analogues AdvReac Intermediate Nausea and Verified 02/03/25 12:59 Vomiting Vital Signs Vital Signs - 24 hr 02/03/25 12:52 02/03/25 17:05 Temperature 97.9 F Pulse Rate 95 89 Respiratory Rate 20 20 Blood Pressure 153/83 H 148/84 H Pulse Oximetry 99 100 Oxygen Delivery Room Air Exam Narrative: General appearance: Well-developed, well-nourished Skin: Skin tear at left elbow posteriorly 1 cm, and left wrist 1 cm laterally, no active bleeding, pressure dressing in place, moderate wrist swelling observed, instructed RN please remove dressing Head: Normocephalic, nontraumatic Eyes: Clear conjunctiva ENT: Oropharynx normal, ears normal, nose normal Neck: Supple, nontender Chest and respiratory: Airway patent, no respiratory distress, no accessory muscle use Heart: Regular rate/rhythm Abdomen: Soft, nontender, no organomegaly, quiet bowel sounds Vascular: Normal peripheral pulses, normal capillary refill. Musculoskeletal: Diffuse tenderness left elbow and left wrist, moderate bruising and swelling observed Neurologic: Alert and oriented ?3, SUPERVISOR ORDER TAKERS is normal as tested, no gross motor deficit H&P: Results Labs Labs: Short CBC 02/03/25 Range/Units 17:07 WBC 11.2 H (4.5-10.0) K/mm3 Hgb 13.3 L (14.0-18.0) g/dL Hct 41.7 L (42.0-52.0) % Plt Count 216 (150-375) k/mm3 BMP 02/03/25 17:07 Sodium 137 Potassium 4.1 Chloride 107 Carbon Dioxide 25 BUN 31 H Creatinine 1.12 Glucose 126 H Calcium 8.5 Liver Function 02/03/25 Range/Units 17:07 Total Bilirubin 1.2 (0.2-1.3) mg/dL AST 30 (17-59) U/L ALT 25 (6-50) U/L Alkaline Phosphatase 50 (38-126) U/L Albumin 3.2 L (3.5-5.1) g/dL Urine 02/03/25 Range/Units 17:32 Urine Color Yellow (Yellow) Urine Appearance Cloudy H (Clear) Urine pH 7.0 (5.0-9.0) Ur Specific [place] 1.016 (1.001-1.035) Urine Protein Negative (Negative) mg/dL Urine Glucose (UA) Negative (Negative) mg/dL Assessment and Plan Assessment and plan (1) At moderate risk for fall: Code(s): Z91.81 - History of falling Status: Acute Assessment and Plan: Of note patient was seen and treated in-patient 09/05/2024 for left shoulder/hip pain s/p: fall -concern Eliquis may not be appropriate for patient given history of frequent falls -initiate safety precautions -PT eval and treat -patient admits he is unable to ambulate up and down stairs at his house (2) Essential hypertension: Code(s): I10 - Essential (primary) hypertension Status: Chronic (3) Atrial fibrillation: Qualifiers: Atrial fibrillation type: unspecified Qualified Code(s): I48.91 - Unspecified atrial fibrillation Code(s): I48.91 - Unspecified atrial fibrillation Status: Chronic Assessment and Plan: -patient is having frequent falls pt currently on Eliquis -consult cardiology for suggestive management for AFib -hold Eliquis (4) Hyperlipidemia: Qualifiers: Hyperlipidemia type: unspecified Qualified Code(s): E78.5 - Hyperlipidemia, unspecified Code(s): E78.5 - Hyperlipidemia, unspecified Status: Acute (5) Type 2 diabetes mellitus: Qualifiers: Diabetes mellitus complication status: without complication Diabetes mellitus longitudinal float operator insulin use: without group home use Qualified Code(s): E11.9 - Type 2 diabetes mellitus without complications Code(s): E11.9 - Type 2 diabetes mellitus without complications Status: Acute Assessment and Plan: -hold metformin -start bedside glucose management QACHS -hypoglycemia protocol p.r.n. (6) BPH (benign prostatic hyperplasia): Qualifiers: Lower urinary tract symptom presence: unspecified whether lower urinary tract symptoms present Qualified Code(s): N40.0 - Benign prostatic hyperplasia without lower urinary tract symptoms Code(s): N40.0 - Benign prostatic hyperplasia without lower urinary tract symptoms Status: Acute Assessment and Plan: -pt unable to urinate -nursing staff difficult to straight cath -consult urology in the a.m. -continue bladder scan Q 4-6 hours (7) UTI (urinary tract infection): Code(s): N39.0 - Urinary tract infection, site not specified Status: Acute Assessment and Plan: UA positive for urine nitrate, leukocyte esterase 2+, urine WBC 11-20, urine bacteria 4+ -start ceftriaxone 1 g IV PQ 20 4 hours -urine cultures pending Plan Continue home medications: Hold metformin VTE Prophylaxis: SCDs DIET: Heart healthy diet Anticipated hospital stay: > 2 days Code Status: Full code Hospitalist MIPS Advance Care Plan I have confirmed that the patient's Advanced Care Plan is present, code status is documented, or surrogate decision maker is listed in patient medical record.: Yes Medication Reconciliation I have utilized all available resources to obtain, update and review the patients current medications (includes all prescriptions, OTC, herbals, cannabis, and nutritional supplements).: Yes
--- NOTE | 2025-02-03 18:57 | ADMGEN ---
This patient, Christian Villa I, was admitted to [address] [facility] Surg Room 304-01. Patient/family oriented to hospital policies and general routines including ID bracelet, bed and alarms, visiting hours, pain management, procedures, bathroom and other care routines, personal items, smoking policy, room service/diet, and visiting hours. Information on how to activate the Rapid Response Team has been discussed. Patient/Family are encouraged to report perceived risks to care and to ask questions if they do not understand what they are told or what they should do.
[2025-02-03] MEDS: ACETAMINOPHEN 325 MG TABLET 650 MG PO (20:10)
[2025-02-03] MEDS: cefTRIAXone 1 GM in SODIUM CHLORIDE 0.9% IV 50 ML 100 ML IVPB (20:10)
[2025-02-03 21:13] VITALS: BP 127/74; PULSE 73; RESP 16; TEMP 37.2; O2SAT 98
[2025-02-04] VITALS (8 sets, daily range): BP systolic 114–152; BP diastolic 50–85; PULSE 63–88; RESP 14–18; TEMP 35.6–37; O2SAT 98–100; BMI 28.3
[2025-02-04] MEDS: ACETAMINOPHEN 325 MG TABLET 650 MG PO ×3 (04:40→18:54)
[2025-02-04 06:37] LABS: Hematocrit 36.6 % (42.0-52.0); Hemoglobin 11.6 g/dL (14.0-18.0); Immature Granulocyte Percent A 0.4 % (0-0.5); Lymphocytes Absolute Auto 2.29 K/mm3 (0.9-3.2); Mean Corpuscular HGB Conc 31.7 g/dl (32-36); Mean Corpuscular Hemoglobin 30.7 pg (26-34); Mean Corpuscular Volume 96.8 fl (80-100); Nucleated Red Blood Cells Absolute Auto 0.000 K/mm3 (0.0-0.012); Nucleated Red Blood Cells Perc 0.0 % (0.0-0.2); Platelet Count Result 184 k/mm3 (150-375); Red Blood Count 3.78 M/mm3 (4.6-6.20); White Blood Count 8.3 K/mm3 (4.5-10.0)
[2025-02-04 06:57] LABS: Alanine Aminotransferase 18 U/L (6-50); Albumin Level 2.8 g/dL (3.5-5.1); Alkaline Phosphatase 43 U/L (38-126); Anion Gap 5 mmol/L (4-12); Aspartate Amino Transferase 25 U/L (17-59); Bilirubin,Total 0.8 mg/dL (0.2-1.3); Blood Urea Nitrogen 31 mg/dL (9-20); Calcium 8.1 mg/dL (8.4-10.2); Carbon Dioxide 25 mmol/L (22-30); Chloride 107 mmol/L (98-107); Estimated CRCL calculation 47 ml/min; Estimated Glomerular Filt Rate > 60; Glucose 107 mg/dL (65-110); Potassium 3.7 mmol/L (3.4-5.0); Sodium 137 mmol/L (137-145); Total Protein 5.2 g/dL (6.3-8.2)
[2025-02-04] MEDS: FERROUS SULFATE 325 MG TABLET PO (10:03)
[2025-02-04] MEDS: ASPIRIN 81 MG ENTERIC TABLET PO (10:03)
[2025-02-04] MEDS: dilTIAZem HCL CD 180 MG CAP.24HR PO (10:03)
[2025-02-04] MEDS: MULTIVITAMINS /C LUTEIN (CENTRUM SILVER) TABLET *BKC 1 TAB PO (10:04)
[2025-02-04] MEDS: VITAMIN B COMPLEX CAPSULE 1 CAP PO (10:04)
[2025-02-04] MEDS: FINASTERIDE 5 MG TABLET BY MOUTH (10:04)
[2025-02-04] MEDS: OMEGA 3 POLYUNSAT FATTY ACIDS 1 GM CAP PO (10:04)
--- NOTE | 2025-02-04 11:40 | PM.IMPN ---
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 Status: Acute (4) UTI (urinary tract infection): Code(s): N39.0 - Urinary tract infection, site not specified Status: Acute (5) Left rotator cuff tear: Qualifiers: Rotator cuff tear extent: unspecified tear extent Rotator cuff tear trauma status: traumatic Encounter type: subsequent encounter Qualified Code(s): S46.012D - Strain of muscle(s) and tendon(s) of the rotator cuff of left shoulder, subsequent encounter Code(s): M75.102 - Unspecified rotator cuff tear or rupture of left shoulder, not specified as traumatic Status: Acute (6) Primary osteoarthritis involving multiple joints: Code(s): M15.0 - Primary generalized (osteo)arthritis Status: Acute Plan 84-year-old male admitted with ground level fall where he landed on his left upper extremity. The patient did suffer a skin tear to left arm causing moderate bleeding to skin tear site. x-ray left wrist and left elbow left shoulder showed no acute osseous abnormality, patient reported that he is unable to move left arm. 1. Fall: Imaging including shoulder CT, x-ray elbow, x-ray wrist negative for any fractures PT/OT as tolerated Pain control as needed 2. Possible UTI: Continue with ceftriaxone Follow-up urine culture 3. History of atrial fibrillation: Continue with Cardizem, Xarelto 4. Code status: DNR 5. DVT prophylaxis: On Xarelto 6. Disposition: Likely needs placement to SNF, therapeutic case manager aware Time Spent With Patient Time: 37 minutes Subjective Date/time seen: 02/04/25 11:40 Interval history: no acute events overnight Review of Systems Review of Systems: All systems reviewed & are unremarkable except as noted in HPI and below Exam Narrative: General appearance: Well-developed, Skin: Skin tear at left elbow posteriorly 1 cm, and left wrist 1 cm laterally, no active bleeding, pressure dressing in place, moderate wrist swelling observed, Head: Normocephalic, nontraumatic Eyes: Clear conjunctiva ENT: Oropharynx normal, ears normal, nose normal Neck: Supple, nontender Chest and respiratory: Airway patent, no respiratory distress, no accessory muscle use Heart: Regular rate/rhythm Abdomen: Soft, nontender, no organomegaly, quiet bowel sounds Vascular: Normal peripheral pulses, normal capillary refill. Musculoskeletal: Diffuse tenderness left elbow and left wrist, moderate bruising and swelling observed Neurologic: Alert and oriented ?3, Objective Data Vital Signs Vital Signs: Vital Signs - 24 hr 02/03/25 12:52 02/03/25 17:05 02/03/25 21:13 Temperature 97.9 F 99.0 F Pulse Rate 95 89 73 Respiratory Rate 20 20 16 Blood Pressure 153/83 H 148/84 H 127/74 Pulse Oximetry 99 100 98 Oxygen Delivery Room Air 02/04/25 00:07 02/04/25 04:32 02/04/25 08:00 Temperature 98.6 F 97.5 F L 97.1 F L Pulse Rate 83 86 73 Respiratory Rate 16 16 18 Blood Pressure 114/60 150/63 H 152/72 H Pulse Oximetry 99 100 100 Oxygen Delivery 02/04/25 08:00 02/04/25 09:14 Temperature 97.1 F L Pulse Rate 73 Respiratory Rate 18 Blood Pressure 152/72 H 140/85 Pulse Oximetry 100 Oxygen Delivery Intake/Output Intake/Output: Intake & Output 02/01/25 02/02/25 02/03/25 02/04/25 23:59 23:59 23:59 23:59 Intake Total 790 Output Total 60 525 Balance -60 265 Meds/Results Medications: Active Medications Generic Name Dose Route Start Last Admin Trade Name Freq PRN Reason Stop Dose Admin Acetaminophen 650 mg 02/03/25 16:35 02/04/25 10:30 Acetaminophen 325 Mg Tablet PO 650 mg Q4H PRN Administration Mild Pain (1-3) or Fever Albuterol 2 puff 02/04/25 09:38 Albuterol Sulfate (*Sp) Aerosol 1 Puff INHALATION Q4H PRN Shortness Of Breath Or Wheezing Aspirin 81 mg 02/04/25 09:00 02/04/25 10:03 Aspirin 81 Mg Enteric Tablet PO 81 mg QAM MELISSA Administration Atorvastatin Calcium 40 mg 02/04/25 18:00 Atorvastatin 40 Mg Tablet PO QPM MELISSA Diltiazem HCl 180 mg 02/04/25 09:00 02/04/25 10:03 Diltiazem Hcl Cd 180 Mg Cap.24hr PO 180 mg DAILY MELISSA Administration Ferrous Sulfate 325 mg 02/04/25 09:00 02/04/25 10:03 Ferrous Sulfate 325 Mg Tablet PO 325 mg DAILY MELISSA Administration Finasteride 5 mg 02/04/25 09:00 02/04/25 10:04 Finasteride 5 Mg Tablet BY MOUTH 5 mg DAILY MELISSA Administration Fish Oil 1 gm 02/04/25 09:00 02/04/25 10:04 [place] 3 Polyunsat Fatty Acids 1 Gm Cap PO 1 gm QAM MELISSA Administration Ceftriaxone Sodium 1 gm/ 50 mls @ 100 mls/hr 02/04/25 21:00 Sodium Chloride IVPB Q24H [facility] Multivitamins/Minerals 1 tab 02/04/25 09:00 02/04/25 10:04 Multivitamins /C Lutein (Centrum Silver) Tablet *Bkc PO 1 tab DAILY MELISSA Administration Oxybutynin Chloride 15 mg 02/04/25 21:00 Oxybutynin Chloride Xl 5 Mg Tab.Er.24 PO HS MELISSA Rivaroxaban 20 mg 02/04/25 18:00 Rivaroxaban 20 Mg Tablet PO QPM MELISSA Fluticasone/Salmeterol 2 puff 02/04/25 08:00 Fluticasone/Salmeterol 115-21 Mcg Inhaler 1 Puff INHALATION Q12HRT [facility] Vitamin B Complex 1 cap 02/04/25 09:00 02/04/25 10:04 Vitamin B Complex Capsule PO 1 cap DAILY MELISSA Administration Radiology Results: ITS Impressions Shoulder X-Ray 02/03/25 16:55 Impression: No acute fracture or malalignment. Shoulder CT 02/04/25 08:27 IMPRESSION: 1. 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 No acute osseous abnormality. 2. Moderate left acromioclavicular osteoarthritis. 3. Mild upper thoracic levoscoliosis with severe spondylosis and bridging osteophytes at multiple levels consistent with diffuse idiopathic skeletal hyperostosis (DISH). Labs Labs: Laboratory Results - last 24 hr 02/03/25 02/03/25 02/03/25 17:07 17:32 22:03 WBC 11.2 H RBC 4.36 L Hgb 13.3 L Hct 41.7 L MCV 95.6 MCH 30.5 MCHC 31.9 L RDW 15.8 H Plt Count 216 MPV 9.6 Immature Gran % (Auto) 0.4 Neut % (Auto) 70.7 Lymph % (Auto) 21.5 [place] % (Auto) 6.6 Eos % (Auto) 0.6 Baso % (Auto) 0.2 Lymph # (Auto) 2.40 [place] # (Auto) 0.7 H Eos # (Auto) 0.1 Baso # (Auto) 0.0 Abs Immat Gran (auto) 0.05 H Absolute Neuts (auto) 7.9 H Absolute Nucleated RBC 0.000 Nucleated RBC % 0.0 PT 16.7 H INR 1.4 APTT 34.8 Sodium 137 Potassium 4.1 Chloride 107 Carbon Dioxide 25 Anion Gap 5 BUN 31 H Creatinine 1.12 Estim Creat Clear Calc 53 Estimated GFR > 60 Glucose 126 H POC Capillary Glucose 157 H Calcium 8.5 Total Bilirubin 1.2 AST 30 ALT 25 Alkaline Phosphatase 50 Total Protein 5.6 L Albumin 3.2 L Urine Color Yellow Urine Appearance Cloudy H Urine pH 7.0 Ur Specific [place] 1.016 Urine Protein Negative Urine Glucose (UA) Negative Urine Ketones Negative Ur Blood (Man) Negative Urine Nitrate Positive H Urine Bilirubin Negative Urine Urobilinogen 1.0 Leukocyte Esterase Rfl 2+ H Urine RBC 0-2 Urine WBC 11-20 H Ur Squamous Epith Cells None seen Urine Bacteria 4+ Urine Casts 0-2 02/04/25 02/04/25 02/04/25 05:35 09:28 11:15 WBC 8.3 RBC 3.78 L Hgb 11.6 L Hct 36.6 L MCV 96.8 MCH 30.7 MCHC 31.7 L RDW 16.0 H Plt Count 184 MPV 9.9 Immature Gran % (Auto) 0.4 Neut % (Auto) 58.1 Lymph % (Auto) 27.5 [place] % (Auto) 9.1 H Eos % (Auto) 4.2 Baso % (Auto) 0.7 Lymph # (Auto) 2.29 [place] # (Auto) 0.8 H Eos # (Auto) 0.4 H Baso # (Auto) 0.1 Abs Immat Gran (auto) 0.03 Absolute Neuts (auto) 4.9 Absolute Nucleated RBC 0.000 Nucleated RBC % 0.0 PT INR APTT Sodium 137 Potassium 3.7 Chloride 107 Carbon Dioxide 25 Anion Gap 5 BUN 31 H Creatinine 1.13 Estim Creat Clear Calc 47 Estimated GFR > 60 Glucose 107 POC Capillary Glucose 213 H 127 H Calcium 8.1 L Total Bilirubin 0.8 AST 25 ALT 18 Alkaline Phosphatase 43 Total Protein 5.2 L Albumin 2.8 L Urine Color Urine Appearance Urine pH Ur Specific [place] Urine Protein Urine Glucose (UA) Urine Ketones Ur Blood (Man) Urine Nitrate Urine Bilirubin Urine Urobilinogen Leukocyte Esterase Rfl Urine RBC Urine WBC Ur Squamous Epith Cells Urine Bacteria Urine Casts Quality VTE Prophylaxis VTE prophylaxis: pharmacologic ordered
--- NOTE | 2025-02-04 15:45 | PCRCNOTE ---
Window of time for administration has passed. See next scheduled administration.
[2025-02-04] MEDS: ATORVASTATIN 40 MG TABLET PO (17:18)
[2025-02-04] MEDS: RIVAROXABAN 20 MG TABLET PO (17:19)
[2025-02-04] MEDS: FLUTICASONE/SALMETEROL 115-21 MCG INHALER 1 PUFF 2 PUFF INHALATION (20:07)
[2025-02-04] MEDS: oxyBUTYnin CHLORIDE XL 5 MG TAB.ER.24 15 MG PO (20:51)
[2025-02-04] MEDS: cefTRIAXone 1 GM in SODIUM CHLORIDE 0.9% IV 50 ML 100 ML IVPB (20:52)
[2025-02-05] VITALS (10 sets, daily range): BP systolic 124–148; BP diastolic 53–98; PULSE 62–96; RESP 14–18; TEMP 35.8–37.2; O2SAT 97–100
[2025-02-05 06:07] LABS: Hematocrit 35.5 % (42.0-52.0); Hemoglobin 11.1 g/dL (14.0-18.0); Immature Granulocyte Percent A 0.3 % (0-0.5); Lymphocytes Absolute Auto 1.93 K/mm3 (0.9-3.2); Mean Corpuscular HGB Conc 31.3 g/dl (32-36); Mean Corpuscular Hemoglobin 31.0 pg (26-34); Mean Corpuscular Volume 99.2 fl (80-100); Nucleated Red Blood Cells Absolute Auto 0.000 K/mm3 (0.0-0.012); Nucleated Red Blood Cells Perc 0.0 % (0.0-0.2); Platelet Count Result 174 k/mm3 (150-375); Red Blood Count 3.58 M/mm3 (4.6-6.20); White Blood Count 8.9 K/mm3 (4.5-10.0)
[2025-02-05 07:13] LABS: Alanine Aminotransferase 19 U/L (6-50); Albumin Level 2.8 g/dL (3.5-5.1); Alkaline Phosphatase 41 U/L (38-126); Anion Gap 0 mmol/L (4-12); Aspartate Amino Transferase 21 U/L (17-59); Bilirubin,Total 0.6 mg/dL (0.2-1.3); Blood Urea Nitrogen 24 mg/dL (9-20); Calcium 8.3 mg/dL (8.4-10.2); Carbon Dioxide 27 mmol/L (22-30); Chloride 106 mmol/L (98-107); Estimated CRCL calculation 49 ml/min; Estimated Glomerular Filt Rate > 60; Glucose 113 mg/dL (65-110); Potassium 3.9 mmol/L (3.4-5.0); Sodium 133 mmol/L (137-145); Total Protein 5.2 g/dL (6.3-8.2)
[2025-02-05] MEDS: FLUTICASONE/SALMETEROL 115-21 MCG INHALER 1 PUFF 2 PUFF INHALATION ×2 (07:40→21:59)
[2025-02-05] MEDS: FINASTERIDE 5 MG TABLET BY MOUTH (08:47)
[2025-02-05] MEDS: dilTIAZem HCL CD 180 MG CAP.24HR PO (08:47)
[2025-02-05] MEDS: MULTIVITAMINS /C LUTEIN (CENTRUM SILVER) TABLET *BKC 1 TAB PO (08:47)
[2025-02-05] MEDS: ASPIRIN 81 MG ENTERIC TABLET PO (08:47)
[2025-02-05] MEDS: VITAMIN B COMPLEX CAPSULE 1 CAP PO (08:47)
[2025-02-05] MEDS: ACETAMINOPHEN 325 MG TABLET 650 MG PO (08:47)
[2025-02-05] MEDS: OMEGA 3 POLYUNSAT FATTY ACIDS 1 GM CAP PO (08:47)
[2025-02-05] MEDS: FERROUS SULFATE 325 MG TABLET PO (08:48)
--- NOTE | 2025-02-05 12:51 | PCOTNOTE ---
Attempted Patient this afternoon. Patient refused to participate, states he wants answers before he moves around. Patient states he has had x-rays and testing this date and wants the doctor to come tell him why the pain is so bad if there is not something wrong. Patient refuses to participate.
--- NOTE | 2025-02-05 13:03 | PM.IMPN ---
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 Status: Acute (4) UTI (urinary tract infection): Code(s): N39.0 - Urinary tract infection, site not specified Status: Acute (5) Left rotator cuff tear: Qualifiers: Rotator cuff tear extent: unspecified tear extent Rotator cuff tear trauma status: traumatic Encounter type: subsequent encounter Qualified Code(s): S46.012D - Strain of muscle(s) and tendon(s) of the rotator cuff of left shoulder, subsequent encounter Code(s): M75.102 - Unspecified rotator cuff tear or rupture of left shoulder, not specified as traumatic Status: Acute (6) Primary osteoarthritis involving multiple joints: Code(s): M15.0 - Primary generalized (osteo)arthritis Status: Acute Plan 84-year-old male admitted with ground level fall where he landed on his left upper extremity. The patient did suffer a skin tear to left arm causing moderate bleeding to skin tear site. x-ray left wrist and left elbow left shoulder showed no acute osseous abnormality, patient reported that he is unable to move left arm. 1. Fall: Imaging including shoulder CT, x-ray elbow, x-ray wrist negative for any fractures X-ray of left foot, ankle, lumbar x-ray unremarkable Await soft tissue ultrasound for left arm with increased swelling PT/OT as tolerated Pain control as needed 2. Possible UTI: Continue with ceftriaxone Follow-up urine culture 3. History of atrial fibrillation: Continue with Cardizem, Xarelto 4. Code status: DNR 5. DVT prophylaxis: On Xarelto 6. Disposition: Likely needs placement to SNF, case mgr aware Time Spent With Patient Time: 37 minutes Subjective Date/time seen: 02/05/25 13:03 Interval history: c/o back pain left foot pain increased swelling of left arm Review of Systems Review of Systems: All systems reviewed & are unremarkable except as noted in HPI and below Exam Narrative: General appearance: Well-developed, Skin: Skin tear at left elbow posteriorly 1 cm, and left wrist 1 cm laterally, no active bleeding, pressure dressing in place, moderate wrist swelling observed, Head: Normocephalic, nontraumatic Eyes: Clear conjunctiva ENT: Oropharynx normal, ears normal, nose normal Neck: Supple, nontender Chest and respiratory: Airway patent, no respiratory distress, no accessory muscle use Heart: Regular rate/rhythm Abdomen: Soft, nontender, no organomegaly, quiet bowel sounds Vascular: Normal peripheral pulses, normal capillary refill. Musculoskeletal: Diffuse tenderness left elbow and left wrist, moderate bruising and swelling observed Neurologic: Alert and oriented ?3, Objective Data Vital Signs Vital Signs: Vital Signs - 24 hr 02/04/25 15:13 02/04/25 16:00 02/04/25 20:00 Temperature 96.0 F L 97.5 F L Pulse Rate 84 63 Respiratory Rate 18 14 Blood Pressure 146/55 H 134/50 L Pulse Oximetry 100 98 Oxygen Delivery Room Air 02/04/25 20:09 02/05/25 00:00 02/05/25 04:00 Temperature 97.9 F 98.9 F Pulse Rate 88 68 62 Respiratory Rate 16 14 16 Blood Pressure 139/54 L 138/75 Pulse Oximetry 100 100 Oxygen Delivery 02/05/25 07:40 02/05/25 08:00 02/05/25 08:00 Temperature 96.4 F L 96.4 F L Pulse Rate 80 80 80 Respiratory Rate 16 18 18 Blood Pressure 147/98 H 147/98 H Pulse Oximetry 99 99 Oxygen Delivery 02/05/25 08:01 02/05/25 08:27 02/05/25 08:50 Temperature Pulse Rate Respiratory Rate Blood Pressure 148/91 H Pulse Oximetry Oxygen Delivery Room Air Room Air 02/05/25 11:55 Temperature 96.4 F L Pulse Rate 77 Respiratory Rate 18 Blood Pressure 129/53 L Pulse Oximetry 98 Oxygen Delivery Intake/Output Intake/Output: Intake & Output 02/02/25 02/03/25 02/04/25 02/05/25 23:59 23:59 23:59 23:59 Intake Total 1270 300 Output Total 60 1525 0 Balance -60 -255 300 Meds/Results Medications: Active Medications Generic Name Dose Route Start Last Admin Trade Name Freq PRN Reason Stop Dose Admin Acetaminophen 650 mg 02/03/25 16:35 02/05/25 08:47 Acetaminophen 325 Mg Tablet PO 650 mg Q4H PRN Administration Mild Pain (1-3) or Fever Albuterol 2 puff 02/04/25 09:38 Albuterol Sulfate (*Sp) Aerosol 1 Puff INHALATION Q4H PRN Shortness Of Breath Or Wheezing Aspirin 81 mg 02/04/25 09:00 02/05/25 08:47 Aspirin 81 Mg Enteric Tablet PO 81 mg QAM MELISSA Administration Atorvastatin Calcium 40 mg 02/04/25 18:00 02/04/25 17:18 Atorvastatin 40 Mg Tablet PO 40 mg QPM MELISSA Administration Diltiazem HCl 180 mg 02/04/25 09:00 02/05/25 08:47 Diltiazem Hcl Cd 180 Mg Cap.24hr PO 180 mg DAILY MELISSA Administration Ferrous Sulfate 325 mg 02/04/25 09:00 02/05/25 08:48 Ferrous Sulfate 325 Mg Tablet PO 325 mg DAILY MELISSA Administration Finasteride 5 mg 02/04/25 09:00 02/05/25 08:47 Finasteride 5 Mg Tablet BY MOUTH 5 mg DAILY MELISSA Administration Fish Oil 1 gm 02/04/25 09:00 02/05/25 08:47 [place] 3 Polyunsat Fatty Acids 1 Gm Cap PO 1 gm QAM MELISSA Administration Ceftriaxone Sodium 1 gm/ 50 mls @ 100 mls/hr 02/04/25 21:00 02/04/25 20:52 Sodium Chloride IVPB 100 mls/hr Q24H MELISSA Administration Multivitamins/Minerals 1 tab 02/04/25 09:00 02/05/25 08:47 Multivitamins /C Lutein (Centrum Silver) Tablet *Bkc PO 1 tab DAILY MELISSA Administration Oxybutynin Chloride 15 mg 02/04/25 21:00 02/04/25 20:51 Oxybutynin Chloride Xl 5 Mg Tab.Er.24 PO 15 mg HS MELISSA Administration Rivaroxaban 20 mg 02/04/25 18:00 02/04/25 17:19 Rivaroxaban 20 Mg Tablet PO 20 mg QPM MELISSA Administration Fluticasone/Salmeterol 2 puff 02/04/25 08:00 02/05/25 07:40 Fluticasone/Salmeterol 115-21 Mcg Inhaler 1 Puff INHALATION 2 puff Q12HRT MELISSA Administration Vitamin B Complex 1 cap 02/04/25 09:00 02/05/25 08:47 Vitamin B Complex Capsule PO 1 cap DAILY MELISSA Administration Radiology Results: ITS Impressions Shoulder X-Ray 02/03/25 16:55 Impression: No acute fracture or malalignment. Shoulder CT 02/04/25 08:27 IMPRESSION: 1. 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 No acute osseous abnormality. 2. Moderate left acromioclavicular osteoarthritis. 3. Mild upper thoracic levoscoliosis with severe spondylosis and bridging osteophytes at multiple levels consistent with diffuse idiopathic skeletal hyperostosis (DISH). Lumbar Spine X-Ray 02/05/25 09:57 Impression: No acute abnormality. Foot X-Ray 02/05/25 10:59 Impression: Healing fracture detailed above Labs Labs: Laboratory Results - last 24 hr 02/04/25 02/04/25 02/05/25 16:10 19:33 05:24 WBC 8.9 RBC 3.58 L Hgb 11.1 L Hct 35.5 L MCV 99.2 MCH 31.0 MCHC 31.3 L RDW 15.9 H Plt Count 174 MPV 9.8 Immature Gran % (Auto) 0.3 Neut % (Auto) 64.0 Lymph % (Auto) 21.8 [place] % (Auto) 8.5 Eos % (Auto) 4.7 H Baso % (Auto) 0.7 Lymph # (Auto) 1.93 [place] # (Auto) 0.8 H Eos # (Auto) 0.4 H Baso # (Auto) 0.1 Abs Immat Gran (auto) 0.03 Absolute Neuts (auto) 5.7 Absolute Nucleated RBC 0.000 Nucleated RBC % 0.0 Sodium 133 L Potassium 3.9 Chloride 106 Carbon Dioxide 27 Anion Gap 0 L BUN 24 H Creatinine 1.07 Estim Creat Clear Calc 49 Estimated GFR > 60 Glucose 113 H POC Capillary Glucose 146 H 195 H Calcium 8.3 L Total Bilirubin 0.6 AST 21 ALT 19 Alkaline Phosphatase 41 Total Protein 5.2 L Albumin 2.8 L 02/05/25 02/05/25 02/05/25 06:36 07:29 11:40 WBC RBC Hgb Hct MCV MCH MCHC RDW Plt Count MPV Immature Gran % (Auto) Neut % (Auto) Lymph % (Auto) [place] % (Auto) Eos % (Auto) Baso % (Auto) Lymph # (Auto) [place] # (Auto) Eos # (Auto) Baso # (Auto) Abs Immat Gran (auto) Absolute Neuts (auto) Absolute Nucleated RBC Nucleated RBC % Sodium Potassium Chloride Carbon Dioxide Anion Gap BUN Creatinine Estim Creat Clear Calc Estimated GFR Glucose POC Capillary Glucose 103 104 137 H Calcium Total Bilirubin AST ALT Alkaline Phosphatase Total Protein Albumin Quality VTE Prophylaxis VTE prophylaxis: pharmacologic ordered
--- NOTE | 2025-02-05 16:51 | PM.CNGS ---
Assessment and Plan Assessment and plan (1) Mass of left forearm: Code(s): R22.32 - Localized swelling, mass and lump, left upper limb Status: Acute Assessment and Plan: Patient presented 2 days ago after a ground level fall when he landed on his left side. He immediately noticed bleeding and swelling to his left forearm. He is currently on Xarelto for AFib. He also had heart stents placed over a year ago. Imaging of the left elbow, wrist, shoulder, ankle, foot, and lumbar spine all showed no acute osseous abnormalities or fractures. A soft tissue ultrasound of the left upper extremity demonstrated a complex partially cystic soft tissue mass of the left arm. Differentials included soft tissue sarcoma, peripheral nerve sheath tumor, chronic organized hematoma an abscess or infected cyst. Upon exam, soft tissue mass resembles hematoma with blood-filled bullae atop. Low suspicion for infection. No purulent drainage. No increased warmth to the area. Swelling and ecchymosis present throughout left arm. Exquisitely tender to palpation. Minimal bleeding upon today's exam. I do not believe that this mass is any type of sarcoma or tumor, being that this just appeared after he fell and hit the area. No systemic symptoms. CT of the left upper extremity ordered to better visualize the mass and differentiate between subcutaneous versus intramuscular. Hemoglobin stable. Xarelto held. We will continue to follow-up with serial exams and labs. 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 Plan Discussed patient's case and plan of care with Dr. Mosqueda. History of Present Illness Consult details Consult date: 02/05/25 Reason for consult: other (Left arm swelling) Requesting physician: Jennifer Patel MD Narrative: Patient is an 84-year-old male with history of AFib (on Xarelto) and cardiac catheterization with stent placement in March of 2023, diabetes, hypertension, COPD, ANEUDY who we have been asked to see in surgical consultation for left arm swelling. Patient presented to the ED 2 days ago after sustaining a ground level fall. He states he was in his kitchen reaching for something with his right hand when he lost balance and fell onto his left side. Patient is currently on Xarelto for atrial fibrillation. Patient has chronic bruising and purpura of the forearms, likely exacerbated by anticoagulant therapy. He did notice immediate bleeding from left arm as he suffered a skin tear. After the fall he noticed a large bump to his left arm overlying his elbow. Ecchymosis circumferentially throughout his left arm. In the ER bleeding was controlled by a pressure dressing. An x-ray of the left wrist, elbow, and shoulder showed no acute osseous abnormality. Vitals remained stable. Patient was admitted to the hospital. Per ED note the patient did not feel he was safe to go home due to the severity of the pain and his inability to go up stairs without assistance. Per this note he was requesting to be placed to a fpc. A shoulder CT was obtained yesterday and demonstrated chronic left rotator cuff arthropathy. No other acute osseous abnormalities. Today, left ankle x-ray and lumbar spine x-ray were obtained. These did not demonstrate any fractures or dislocations. A left foot x-ray demonstrated a healing fracture proximal aspect proximal phalanx 5th digit. A soft tissue ultrasound of the left upper extremity was obtained due to left arm swelling. This demonstrated complex partially cystic soft tissue mass of the left arm. Differential diagnosis includes soft tissue sarcoma, peripheral nerve sheath tumor, chronic organized hematoma an abscess or infected cyst. Consider cross-sectional imaging with MRI with and without contrast for further characterization. General surgery team was consulted at this time. White blood cell count normal today at 8.9, down from 11.2 upon initial presentation on 02/03. Hemoglobin stable at 11.1. PTT mildly elevated at 16.7. No recent fevers or weight loss. [facility] Past Medical History Medical History Hip pain, left Frequent falls Unable to ambulate Acute postoperative pain Hematoma Fall Left shoulder pain Infarction of right basal ganglia Confusion Chronic kidney disease, stage 3 Chronic anticoagulation Cerebral cavernoma Obstructive sleep apnea intolerant to CPAP Lumbosacral stenosis with neurogenic claudication with epidural steroid injection L4-L5 December 2022 Mild cognitive impairment COPD with asthma Lumbosacral radiculopathy Claudication of both lower extremities Postlaminectomy syndrome Lumbosacral spondylosis Long COVID Atrial fibrillation Benign non-nodular prostatic hyperplasia without lower urinary tract symptoms Essential hypertension 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 Surgical History Surgical History History of lumbar discectomy (08/2024) minimally invasive at L3-L4 and L4-L5 History of lumbar fusion History of cardiac catheterization (03/2023) multivessel coronary disease to 80% stenosis of the proximal LAD 70% stenosis midportion of LAD very small diagonal branch, proximal and mid left circ have luminal irregularities 90% long stenosis left circumflex, small caliber obtuse marginal branch with mild diffuse disease obtuse marginal 2 has a moderate stenosis of the midportion right coronary artery is dominant vessel with 90% stenosis of the midportion and mid RPDA has 2 tandem stenosis is of 60-70% the patient was referred for CV surgery however the patient then underwent staged procedure at [facility] with PCI and stent to mid distal left circ and in September 2023 he had a PCI to the mid RCA History of cataract surgery Family History Family History Sibling Patient's sister is in good health Patient's brother is in good health Father Heart disease Acute myocardial infarction Telangiectasia Vhdar-Gdzdf-Stebk disease Angiodysplasia AVM (arteriovenous malformation) Mother Acute myocardial infarction Social History Social History Social History: Surrogate medical decision maker: Genoveva Villa, spouse. Code status: DO NOT RESUSCITATE. Smoking packs per day: 0.5 Smoking cigarettes per day: 10.0 Years smoked: 2 Smoking pack-years: 1.00 Smoking status: Former smoker Second hand tobacco smoke exposure: No Additional smoking assessment comments: quit smoking in his 30s Alcohol intake: never Substance use: never Substance use type: does not use Do You Feel Safe in your Home?: Yes Lack of Transportation: No Lack of Food: Never True Current Housing: I Have Housing Concerned About Future Housing: No Difficulty Paying Gas/Electric Bills: No Difficulty Paying for Meds: No Currently Unemployed: No Education: High School Diploma/GED Difficulty w/ Childcare or Family Care: No Living arrangements: with family Additional living arrangements comments: Lives with in [place]. 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 Spiritual care concerns: No Meds Home Medications and Allergies Home Medications ?Medication ?Instructions ?Recorded ?Confirmed ?Type lancets (Lancets, Super Thin) #100 ea 01/30/20 02/04/25 Rx blood sugar diagnostic (Contour #100 ea 03/19/20 02/04/25 Rx Next Test Strips) multivit with minerals-iron 18 1 tablet PO DAILY 12/10/21 02/03/25 History mg-folic ac 400 mcg-vit K 25 mcg tablet (Adults Multivitamin) vitamin B complex (B 1 tablet PO DAILY 12/10/21 02/03/25 History Complex-Vitamin B12 tablet) atorvastatin 40 mg tablet 40 mg PO QPM 10/21/23 02/03/25 History finasteride 5 mg tablet See Rx Instructions .Route 01/02/24 02/03/25 Rx .COMPLEX #90 tabs omega-3 fatty acids 1,000 mg PO DAILY 04/09/24 02/03/25 History oxybutynin chloride 15 mg 15 mg PO HS #90 tabs 05/28/24 02/03/25 Rx tablet,extended release 24 hr albuterol sulfate 90 mcg/actuation 2 puff inhalation Q4H PRN 07/19/24 02/03/25 Rx aerosol inhaler (ProAir HFA) shortness of breath or wheezing #8.5 grams aspirin 81 mg tablet,delayed 81 mg PO QAM 30 days #30 tabs 09/13/24 02/03/25 Rx release metformin 1,000 mg tablet 1,000 mg PO DAILY #180 tabs 11/22/24 02/03/25 Rx fluticasone 250 mcg-salmeterol 50 See Rx Instructions .Route 12/17/24 02/03/25 Rx mcg/dose blistr powdr for .COMPLEX #180 ea inhalation (Ashlyela Inhub) diltiazem HCl 180 mg See Rx Instructions .Route 01/02/25 02/03/25 Rx capsule,extended release 24 hr .COMPLEX #90 caps ferrous sulfate 325 mg (65 mg 325 mg PO DAILY #90 tabs 01/17/25 02/03/25 Rx iron) tablet rivaroxaban 15 mg tablet (Xarelto) 20 mg PO QPM 02/03/25 02/03/25 History Allergies Allergy/AdvReac Type Severity Reaction Status Date / Time Opioids - Morphine Analogues AdvReac Intermediate Nausea and Verified 02/03/25 22:14 Vomiting Vital Signs Vital Signs - 24 hr 02/04/25 20:00 02/04/25 20:09 02/05/25 00:00 Temperature 97.5 F L 97.9 F Pulse Rate 63 88 68 Respiratory Rate 14 16 14 Blood Pressure 134/50 L 139/54 L Pulse Oximetry 98 100 Oxygen Delivery 02/05/25 04:00 02/05/25 07:40 02/05/25 08:00 Temperature 98.9 F 96.4 F L Pulse Rate 62 80 80 Respiratory Rate 16 16 18 Blood Pressure 138/75 147/98 H Pulse Oximetry 100 99 Oxygen Delivery 02/05/25 08:00 02/05/25 08:01 02/05/25 08:27 Temperature 96.4 F L Pulse Rate 80 Respiratory Rate 18 Blood Pressure 147/98 H 148/91 H Pulse Oximetry 99 Oxygen Delivery Room Air 02/05/25 08:50 02/05/25 11:55 02/05/25 16:00 Temperature 96.4 F L 96.8 F L Pulse Rate 77 72 Respiratory Rate 18 16 Blood Pressure 129/53 L 133/53 L Pulse Oximetry 98 98 Oxygen Delivery Room Air Exam Const: General: comfortable and no acute distress Eyes: General: appearance normal, both eyes and all related structures Neck: Neck: supple Resp: Effort & Inspection: normal respiratory effort Cardio: Rate: regular rate Skin: Other: Diffuse chronic ecchymosis and areas of for purpura, likely exacerbated by anticoagulant therapy Extrem: Other: Left upper extremity with circumferential ecchymosis and purpura that extends from forearm to upper arm. Large palpable mass to outer aspect of elbow/forearm. Bullae atop of the bump containing blood. Small open skin tear to distal portion. Minimal saturation to bandage. Mass is exquisitely tender. No purulence. Psych: Mental Status: mental status grossly normal Results Labs 02/05/25 05:24 02/05/25 05:24 Labs: Abnormal lab results 02/04/25 02/05/25 02/05/25 Range/Units 19:33 05:24 11:40 RBC 3.58 L (4.6-6.20) M/mm3 Hgb 11.1 L (14.0-18.0) g/dL Hct 35.5 L (42.0-52.0) % MCHC 31.3 L (32-36) g/dl RDW 15.9 H (11.5-14.5) % Eos % (Auto) 4.7 H (0-4.4) % [place] # (Auto) 0.8 H (0.1-0.6) K/mm3 Eos # (Auto) 0.4 H (0-0.3) K/mm3 Sodium 133 L (137-145) mmol/L Anion Gap 0 L (4-12) mmol/L BUN 24 H (9-20) mg/dL Glucose 113 H (65-110) mg/dL POC Capillary Glucose 195 H 137 H (65-105) mg/dl Calcium 8.3 L (8.4-10.2) mg/dL Total Protein 5.2 L (6.3-8.2) g/dL Albumin 2.8 L (3.5-5.1) g/dL 02/05/25 Range/Units 16:12 RBC (4.6-6.20) M/mm3 Hgb (14.0-18.0) g/dL Hct (42.0-52.0) % MCHC (32-36) g/dl RDW (11.5-14.5) % Eos % (Auto) (0-4.4) % [place] # (Auto) (0.1-0.6) K/mm3 Eos # (Auto) (0-0.3) K/mm3 Sodium (137-145) mmol/L Anion Gap (4-12) mmol/L BUN (9-20) mg/dL Glucose (65-110) mg/dL POC Capillary Glucose 237 H (65-105) mg/dl Calcium (8.4-10.2) mg/dL Total Protein (6.3-8.2) g/dL Albumin (3.5-5.1) g/dL Diabetes panel 02/05/25 Range/Units 05:24 Sodium 133 L (137-145) mmol/L Potassium 3.9 (3.4-5.0) mmol/L Chloride 106 (98-107) mmol/L Carbon Dioxide 27 (22-30) mmol/L BUN 24 H (9-20) mg/dL Creatinine 1.07 (0.7-1.3) mg/dL Glucose 113 H (65-110) mg/dL Calcium 8.3 L (8.4-10.2) mg/dL AST 21 (17-59) U/L ALT 19 (6-50) U/L Alkaline Phosphatase 41 (38-126) U/L Total Protein 5.2 L (6.3-8.2) g/dL Albumin 2.8 L (3.5-5.1) g/dL Calcium panel 02/05/25 Range/Units 05:24 Calcium 8.3 L (8.4-10.2) mg/dL Albumin 2.8 L (3.5-5.1) g/dL Pituitary panel 02/05/25 Range/Units 05:24 Sodium 133 L (137-145) mmol/L Potassium 3.9 (3.4-5.0) mmol/L Chloride 106 (98-107) mmol/L Carbon Dioxide 27 (22-30) mmol/L BUN 24 H (9-20) mg/dL Creatinine 1.07 (0.7-1.3) mg/dL Glucose 113 H (65-110) mg/dL Calcium 8.3 L (8.4-10.2) mg/dL Adrenal panel 02/05/25 Range/Units 05:24 Sodium 133 L (137-145) mmol/L Potassium 3.9 (3.4-5.0) mmol/L Chloride 106 (98-107) mmol/L Carbon Dioxide 27 (22-30) mmol/L BUN 24 H (9-20) mg/dL Creatinine 1.07 (0.7-1.3) mg/dL Glucose 113 H (65-110) mg/dL Calcium 8.3 L (8.4-10.2) mg/dL Total Bilirubin 0.6 (0.2-1.3) mg/dL AST 21 (17-59) U/L ALT 19 (6-50) U/L Alkaline Phosphatase 41 (38-126) U/L Total Protein 5.2 L (6.3-8.2) g/dL Albumin 2.8 L (3.5-5.1) g/dL All other labs normal.
[2025-02-05] MEDS: INSULIN ASPART (*BKC) 100 UNITS/ML SUB-Q (16:54)
[2025-02-05] MEDS: ATORVASTATIN 40 MG TABLET PO (17:42)
[2025-02-05] MEDS: oxyBUTYnin CHLORIDE XL 5 MG TAB.ER.24 15 MG PO (21:11)
[2025-02-05] MEDS: cefTRIAXone 1 GM in SODIUM CHLORIDE 0.9% IV 50 ML 100 ML IVPB (21:11)
[2025-02-06 03:20] VITALS: BP 132/59; PULSE 83; RESP 18; TEMP 36.5; O2SAT 95
[2025-02-06 06:28] LABS: Hematocrit 32.7 % (42.0-52.0); Hemoglobin 10.3 g/dL (14.0-18.0); Immature Granulocyte Percent A 0.5 % (0-0.5); Lymphocytes Absolute Auto 2.17 K/mm3 (0.9-3.2); Mean Corpuscular HGB Conc 31.5 g/dl (32-36); Mean Corpuscular Hemoglobin 30.9 pg (26-34); Mean Corpuscular Volume 98.2 fl (80-100); Nucleated Red Blood Cells Absolute Auto 0.000 K/mm3 (0.0-0.012); Nucleated Red Blood Cells Perc 0.0 % (0.0-0.2); Platelet Count Result 181 k/mm3 (150-375); Red Blood Count 3.33 M/mm3 (4.6-6.20); White Blood Count 8.8 K/mm3 (4.5-10.0)
[2025-02-06 06:54] LABS: Alanine Aminotransferase 18 U/L (6-50); Albumin Level 2.6 g/dL (3.5-5.1); Alkaline Phosphatase 45 U/L (38-126); Anion Gap 4 mmol/L (4-12); Aspartate Amino Transferase 23 U/L (17-59); Bilirubin,Total 0.6 mg/dL (0.2-1.3); Blood Urea Nitrogen 23 mg/dL (9-20); Calcium 8.2 mg/dL (8.4-10.2); Carbon Dioxide 26 mmol/L (22-30); Chloride 106 mmol/L (98-107); Estimated CRCL calculation 47 ml/min; Estimated Glomerular Filt Rate > 60; Glucose 130 mg/dL (65-110); Potassium 3.9 mmol/L (3.4-5.0); Sodium 136 mmol/L (137-145); Total Protein 5.0 g/dL (6.3-8.2)
--- NOTE | 2025-02-06 07:29 | P.PNIM_ITS ---
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 Status: Acute (4) UTI (urinary tract infection): Code(s): N39.0 - Urinary tract infection, site not specified Status: Acute (5) Left rotator cuff tear: Qualifiers: Encounter type: subsequent encounter Rotator cuff tear extent: unspecified tear extent Rotator cuff tear trauma status: traumatic Qualified Code(s): S46.012D - Strain of muscle(s) and tendon(s) of the rotator cuff of left shoulder, subsequent encounter Code(s): M75.102 - Unspecified rotator cuff tear or rupture of left shoulder, not specified as traumatic Status: Acute (6) Primary osteoarthritis involving multiple joints: Code(s): M15.0 - Primary generalized (osteo)arthritis Status: Acute Plan 1. Fall: - Imaging including shoulder CT, x-ray elbow, x-ray wrist negative for any fractures - X-ray of left foot, ankle, lumbar x-ray unremarkable - Await soft tissue ultrasound for left arm with increased swelling - PT/OT as tolerated - Pain control as needed 2. Mass of left forearm - swelling and bleeding noticed to left forearm after ground level fall that occurred 2 days prior to admission - general surgery consulted - order CT of the left upper extremity he to differentiate between subcutaneous versus intramuscular - hold Xarelto, hemoglobin stable - continue daily dressing changes 3. Possible UTI: - Continue with ceftriaxone - Follow-up urine culture - Culture shows growth of Gram-negative bacilli -continue IV antibiotics 4. History of atrial fibrillation: - Continue with Cardizem, Xarelto 5. Code status: DNR 6. DVT prophylaxis: On Xarelto 7. Disposition: Likely needs placement to SNF, rehabilitation caseworker aware Subjective Date/time seen: 02/06/25 07:29 Interval history: 84-year-old male patient presented today via ambulance after having a ground level fall where he landed on his left upper extremity. Patient tells me that he did not experience any dizziness nausea vomiting when trying to ambulate today at his house without using his walker. 02/06/2025 Patient sitting comfortably in bed at time of examination. CT scan of her left extremity and but not resulted yet. General surgery continues to follow. Urine culture shows Gram-negative bacilli, but continued to treat with IV ceftriaxone until resulted. Patient otherwise stable without complaints at this time. Review of Systems Review of Systems: All systems reviewed & are unremarkable except as noted in HPI and below Exam Narrative: General appearance: Well-developed, Skin: Skin tear at left elbow posteriorly 1 cm, and left wrist 1 cm laterally, no active bleeding, pressure dressing in place, moderate wrist swelling observe d, Head: Normocephalic, nontraumatic Eyes: Clear conjunctiva ENT: Oropharynx normal, ears normal, nose normal Neck: Supple, nontender Chest and respiratory: Airway patent, no respiratory distress, no accessory muscle use Heart: Regular rate/rhythm Abdomen: Soft, nontender, no organomegaly, quiet bowel sounds Vascular: Normal peripheral pulses, normal capillary refill. Musculoskeletal: Diffuse tenderness left elbow and left wrist, moderate bruising and swelling observed Neurologic: Alert and oriented ?3, Objective Data Vital Signs Vital Signs: Vital Signs - 24 hr 02/05/25 07:40 02/05/25 08:00 02/05/25 08:00 Temperature 96.4 F L 96.4 F L Pulse Rate 80 80 80 Respiratory Rate 16 18 18 Blood Pressure 147/98 H 147/98 H Pulse Oximetry 99 99 Oxygen Delivery 02/05/25 08:01 02/05/25 08:27 02/05/25 08:50 Temperature Pulse Rate Respiratory Rate Blood Pressure 148/91 H Pulse Oximetry Oxygen Delivery Room Air Room Air 02/05/25 11:55 02/05/25 16:00 02/05/25 20:00 Temperature 96.4 F L 96.8 F L 98.2 F Pulse Rate 77 72 96 Respiratory Rate 18 16 16 Blood Pressure 129/53 L 133/53 L 135/59 L Pulse Oximetry 98 98 98 Oxygen Delivery 02/05/25 22:00 02/05/25 23:23 02/06/25 03:20 Temperature 97.9 F 97.7 F Pulse Rate 85 88 83 Respiratory Rate 16 18 18 Blood Pressure 124/55 L 132/59 L Pulse Oximetry 97 95 Oxygen Delivery Intake/Output Intake/Output: Intake & Output 09/21/25 09/22/25 09/23/25 09/24/25 23:59 23:59 23:59 23:59 Intake Total 1320 780 Output Total 60 9515 500 225 Balance -60 -205 280 -225 Meds/Results Medications: Active Medications Generic Name Dose Route Start Last Admin Trade Name Freq PRN Reason Stop Dose Admin Acetaminophen 650 mg 02/03/25 16:35 02/05/25 08:47 Acetaminophen 325 Mg Tablet PO 650 mg Q4H PRN Administration Mild Pain (1-3) or Fever Albuterol 2 puff 02/04/25 09:38 Albuterol Sulfate (*Sp) Aerosol 1 Puff INHALATION Q4H PRN Shortness Of Breath Or Wheezing Aspirin 81 mg 02/04/25 09:00 02/05/25 08:47 Aspirin 81 Mg Enteric Tablet PO 81 mg QAM MELISSA Administration Atorvastatin Calcium 40 mg 02/04/25 18:00 02/05/25 17:42 Atorvastatin 40 Mg Tablet PO 40 mg QPM MELISSA Administration Diltiazem HCl 180 mg 02/04/25 09:00 02/05/25 08:47 Diltiazem Hcl Cd 180 Mg Cap.24hr PO 180 mg DAILY MELISSA Administration Ferrous Sulfate 325 mg 02/04/25 09:00 02/05/25 08:48 Ferrous Sulfate 325 Mg Tablet PO 325 mg DAILY MELISSA Administration Finasteride 5 mg 02/04/25 09:00 02/05/25 08:47 Finasteride 5 Mg Tablet BY MOUTH 5 mg DAILY MELISSA Administration Fish Oil 1 gm 02/04/25 09:00 02/05/25 08:47 [place] 3 Polyunsat Fatty Acids 1 Gm Cap PO 1 gm QAM MELISSA Administration Ceftriaxone Sodium 1 gm/ 50 mls @ 100 mls/hr 02/04/25 21:00 02/05/25 21:11 Sodium Chloride IVPB 100 mls/hr Q24H MELISSA Administration Multivitamins/Minerals 1 tab 02/04/25 09:00 02/05/25 08:47 Multivitamins /C Lutein (Centrum Silver) Tablet *Bkc PO 1 tab DAILY MELISSA Administration Oxybutynin Chloride 15 mg 02/04/25 21:00 02/05/25 21:11 Oxybutynin Chloride Xl 5 Mg Tab.Er.24 PO 15 mg HS MELISSA Administration Rivaroxaban 20 mg 02/04/25 18:00 02/04/25 17:19 Rivaroxaban 20 Mg Tablet PO 20 mg On Hold: 02/05/25 17:03 QPM MELISSA Administration Fluticasone/Salmeterol 2 puff 02/04/25 08:00 02/05/25 21:59 Fluticasone/Salmeterol 115-21 Mcg Inhaler 1 Puff INHALATION 2 puff Q12HRT MELISSA Administration Vitamin B Complex 1 cap 02/04/25 09:00 02/05/25 08:47 Vitamin B Complex Capsule PO 1 cap DAILY MELISSA Administration Radiology Results: ITS Impressions Shoulder X-Ray 02/03/25 16:55 Impression: No acute fracture or malalignment. Shoulder CT 02/04/25 08:27 IMPRESSION: 1. 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 No acute osseous abnormality. 2. Moderate left acromioclavicular osteoarthritis. 3. Mild upper thoracic levoscoliosis with severe spondylosis and bridging osteophytes at multiple levels consistent with diffuse idiopathic skeletal hyperostosis (DISH). Lumbar Spine X-Ray 02/05/25 09:57 Impression: No acute abnormality. Foot X-Ray 02/05/25 10:59 Impression: Healing fracture detailed above Soft Tissue Ultrasound 02/05/25 14:45 Impression: 1: Complex partially cystic soft tissue mass of the left arm. Differential diagnosis includes soft tissue sarcoma, peripheral nerve sheath tumor, chronic organized hematoma and abscess or infected cyst. Consider cross-sectional imaging with MRI with and without contrast for further characterization. Biopsy recommended for definitive diagnosis. If infection is suspected, consider aspiration for culture. Labs Labs: Laboratory Results - last 24 hr 02/05/25 02/05/25 02/05/25 07:29 11:40 16:12 WBC RBC Hgb Hct MCV MCH MCHC RDW Plt Count MPV Immature Gran % (Auto) Neut % (Auto) Lymph % (Auto) [place] % (Auto) Eos % (Auto) Baso % (Auto) Lymph # (Auto) [place] # (Auto) Eos # (Auto) Baso # (Auto) Abs Immat Gran (auto) Absolute Neuts (auto) Absolute Nucleated RBC Nucleated RBC % Sodium Potassium Chloride Carbon Dioxide Anion Gap BUN Creatinine Estim Creat Clear Calc Estimated GFR Glucose POC Capillary Glucose 104 137 H 237 H Calcium Total Bilirubin AST ALT Alkaline Phosphatase Total Protein Albumin 02/05/25 02/06/25 20:26 05:28 WBC 8.8 RBC 3.33 L Hgb 10.3 L Hct 32.7 L MCV 98.2 MCH 30.9 MCHC 31.5 L RDW 16.0 H Plt Count 181 MPV 9.9 Immature Gran % (Auto) 0.5 Neut % (Auto) 61.4 Lymph % (Auto) 24.7 [place] % (Auto) 9.5 H Eos % (Auto) 3.4 Baso % (Auto) 0.5 Lymph # (Auto) 2.17 [place] # (Auto) 0.8 H Eos # (Auto) 0.3 Baso # (Auto) 0.0 Abs Immat Gran (auto) 0.04 H Absolute Neuts (auto) 5.4 Absolute Nucleated RBC 0.000 Nucleated RBC % 0.0 Sodium 136 L Potassium 3.9 Chloride 106 Carbon Dioxide 26 Anion Gap 4 BUN 23 H Creatinine 1.14 Estim Creat Clear Calc 47 Estimated GFR > 60 Glucose 130 H POC Capillary Glucose 173 H Calcium 8.2 L Total Bilirubin 0.6 AST 23 ALT 18 Alkaline Phosphatase 45 Total Protein 5.0 L Albumin 2.6 L Quality VTE Prophylaxis VTE prophylaxis: pharmacologic ordered
[2025-02-06 08:00] VITALS: BP 138/59; PULSE 75; RESP 18; TEMP 36.1; O2SAT 95
[2025-02-06] MEDS: FLUTICASONE/SALMETEROL 115-21 MCG INHALER 1 PUFF 2 PUFF INHALATION ×2 (08:26→19:58)
[2025-02-06 08:28] VITALS: PULSE 78; RESP 20
[2025-02-06] MEDS: ACETAMINOPHEN 325 MG TABLET 650 MG PO (09:01)
[2025-02-06] MEDS: VITAMIN B COMPLEX CAPSULE 1 CAP PO (09:03)
[2025-02-06] MEDS: ASPIRIN 81 MG ENTERIC TABLET PO (09:04)
[2025-02-06] MEDS: MULTIVITAMINS /C LUTEIN (CENTRUM SILVER) TABLET *BKC 1 TAB PO (09:04)
[2025-02-06] MEDS: OMEGA 3 POLYUNSAT FATTY ACIDS 1 GM CAP PO (09:04)
[2025-02-06] MEDS: FERROUS SULFATE 325 MG TABLET PO (09:04)
[2025-02-06] MEDS: FINASTERIDE 5 MG TABLET BY MOUTH (09:04)
[2025-02-06] MEDS: dilTIAZem HCL CD 180 MG CAP.24HR PO (09:04)
[2025-02-06 12:00] VITALS: BP 121/52; PULSE 71; RESP 16; TEMP 36.2; O2SAT 98
--- NOTE | 2025-02-06 12:50 | P.PNGS_ITS ---
Progress Note: A&P Assessment and Plan (1) Mass of left forearm: Code(s): R22.32 - Localized swelling, mass and lump, left upper limb Status: Acute Assessment and Plan: * CT of the left upper extremity ordered, but not yet obtained. Awaiting results to determine character and severity of the mass. * Hemoglobin stable. Xarelto held. * Continue daily dressing changes or more frequently if saturated. * We will continue to follow-up with serial exams and labs. (2) Type 2 diabetes mellitus: Qualifiers: Diabetes mellitus complication status: without complication Diabetes mellitus vertical roll operator insulin use: without vertical roll operator use Qualified Code(s): E11.9 - Type 2 diabetes mellitus without complications Code(s): E11.9 - Type 2 diabetes mellitus without complications Status: Acute Assessment and Plan: [place] per hospitalist. (3) Atrial fibrillation: Qualifiers: Atrial fibrillation type: unspecified Qualified Code(s): I48.91 - Unspecified atrial fibrillation Code(s): I48.91 - Unspecified atrial fibrillation Status: Chronic Assessment and Plan: Continue to hold due to likely hematoma to left upper extremity. Hematoma appears stable today. It does not appear any larger than it was yesterday. (4) UTI (urinary tract infection): Code(s): N39.0 - Urinary tract infection, site not specified Status: Acute Assessment and Plan: Urine culture preliminarily growing gram negative bacilli. Continue IV ceftriaxone. Plan Discussed patient's case and plan of care with Dr. Mosqueda. Subjective Subjective Date/Time Seen: 02/06/25 12:50 Patient reports: no new complaints and afebrile Interval history: Patient is doing well today. He is better able to move his left arm. He can fully straighten and bend arm. Hematoma appears stable and unchanged if not slightly smaller than yesterday. CT ordered, but not yet obtained. Exam Const: General: comfortable and no acute distress Extrem: Other: Left upper extremity with circumferential ecchymosis and purpura that extends from forearm to upper arm. Large palpable mass to outer aspect of elbow/forearm. Bullae atop of the bump containing blood. Draining slowly. Small skin tear near left wrist that is stable. Minimal saturation to bandage. Mass is very tender, but no purulence. Objective Data Vital Signs Vital Signs: Vital Signs - 24 hr 02/05/25 16:00 02/05/25 20:00 02/05/25 22:00 Temperature 96.8 F L 98.2 F Pulse Rate 72 96 85 Respiratory Rate 16 16 16 Blood Pressure 133/53 L 135/59 L Pulse Oximetry 98 98 Oxygen Delivery 02/05/25 23:23 02/06/25 03:20 02/06/25 08:00 Temperature 97.9 F 97.7 F 96.9 F L Pulse Rate 88 83 75 Respiratory Rate 18 18 18 Blood Pressure 124/55 L 132/59 L 138/59 L Pulse Oximetry 97 95 95 Oxygen Delivery 02/06/25 08:00 02/06/25 08:00 02/06/25 08:28 Temperature 96.9 F L Pulse Rate 75 78 Respiratory Rate 18 20 Blood Pressure 138/59 L Pulse Oximetry 95 Oxygen Delivery Room Air Intake/Output Intake/Output: Intake & Output 02/03/25 02/04/25 02/05/25 02/06/25 23:59 23:59 23:59 23:59 Intake Total 1320 780 Output Total 60 1525 500 225 Balance -60 -205 280 -225 Meds/Results Medications: Active Medications Generic Name Dose Route Start Last Admin Trade Name Freq PRN Reason Stop Dose Admin Acetaminophen 650 mg 02/03/25 16:35 02/06/25 09:01 Acetaminophen 325 Mg Tablet PO 650 mg Q4H PRN Administration Mild Pain (1-3) or Fever Albuterol 2 puff 02/04/25 09:38 Albuterol Sulfate (*Sp) Aerosol 1 Puff INHALATION Q4H PRN Shortness Of Breath Or Wheezing Aspirin 81 mg 02/04/25 09:00 02/06/25 09:04 Aspirin 81 Mg Enteric Tablet PO 81 mg QAM MELISSA Administration Atorvastatin Calcium 40 mg 02/04/25 18:00 02/05/25 17:42 Atorvastatin 40 Mg Tablet PO 40 mg QPM MELISSA Administration Diltiazem HCl 180 mg 02/04/25 09:00 02/06/25 09:04 Diltiazem Hcl Cd 180 Mg Cap.24hr PO 180 mg DAILY MELISSA Administration Ferrous Sulfate 325 mg 02/04/25 09:00 02/06/25 09:04 Ferrous Sulfate 325 Mg Tablet PO 325 mg DAILY MELISSA Administration Finasteride 5 mg 02/04/25 09:00 02/06/25 09:04 Finasteride 5 Mg Tablet BY MOUTH 5 mg DAILY MELISSA Administration Fish Oil 1 gm 02/04/25 09:00 02/06/25 09:04 [place] 3 Polyunsat Fatty Acids 1 Gm Cap PO 1 gm QAM MELISSA Administration Ceftriaxone Sodium 1 gm/ 50 mls @ 100 mls/hr 02/04/25 21:00 02/05/25 21:11 Sodium Chloride IVPB 100 mls/hr Q24H MELISSA Administration Multivitamins/Minerals 1 tab 02/04/25 09:00 02/06/25 09:04 Multivitamins /C Lutein (Centrum Silver) Tablet *Bkc PO 1 tab DAILY MELISSA Administration Oxybutynin Chloride 15 mg 02/04/25 21:00 02/05/25 21:11 Oxybutynin Chloride Xl 5 Mg Tab.Er.24 PO 15 mg HS MELISSA Administration Rivaroxaban 20 mg 02/04/25 18:00 02/04/25 17:19 Rivaroxaban 20 Mg Tablet PO 20 mg On Hold: 02/05/25 17:03 QPM MELISSA Administration Fluticasone/Salmeterol 2 puff 02/04/25 08:00 02/06/25 08:26 Fluticasone/Salmeterol 115-21 Mcg Inhaler 1 Puff INHALATION 2 puff Q12HRT MELISSA Administration Vitamin B Complex 1 cap 02/04/25 09:00 02/06/25 09:03 Vitamin B Complex Capsule PO 1 cap DAILY MELISSA Administration Radiology Results: ITS Impressions Shoulder X-Ray 02/03/25 16:55 Impression: No acute fracture or malalignment. Shoulder CT 02/04/25 08:27 IMPRESSION: 1. 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 No acute osseous abnormality. 2. Moderate left acromioclavicular osteoarthritis. 3. Mild upper thoracic levoscoliosis with severe spondylosis and bridging osteophytes at multiple levels consistent with diffuse idiopathic skeletal hyperostosis (DISH). Lumbar Spine X-Ray 02/05/25 09:57 Impression: No acute abnormality. Foot X-Ray 02/05/25 10:59 Impression: Healing fracture detailed above Soft Tissue Ultrasound 02/05/25 14:45 Impression: 1: Complex partially cystic soft tissue mass of the left arm. Differential diagnosis includes soft tissue sarcoma, peripheral nerve sheath tumor, chronic organized hematoma and abscess or infected cyst. Consider cross-sectional imaging with MRI with and without contrast for further characterization. Biopsy recommended for definitive diagnosis. If infection is suspected, consider aspiration for culture. Labs Labs: Laboratory Results - last 24 hr 02/05/25 02/05/25 02/06/25 16:12 20:26 05:28 WBC 8.8 RBC 3.33 L Hgb 10.3 L Hct 32.7 L MCV 98.2 MCH 30.9 MCHC 31.5 L RDW 16.0 H Plt Count 181 MPV 9.9 Immature Gran % (Auto) 0.5 Neut % (Auto) 61.4 Lymph % (Auto) 24.7 [place] % (Auto) 9.5 H Eos % (Auto) 3.4 Baso % (Auto) 0.5 Lymph # (Auto) 2.17 [place] # (Auto) 0.8 H Eos # (Auto) 0.3 Baso # (Auto) 0.0 Abs Immat Gran (auto) 0.04 H Absolute Neuts (auto) 5.4 Absolute Nucleated RBC 0.000 Nucleated RBC % 0.0 Sodium 136 L Potassium 3.9 Chloride 106 Carbon Dioxide 26 Anion Gap 4 BUN 23 H Creatinine 1.14 Estim Creat Clear Calc 47 Estimated GFR > 60 Glucose 130 H POC Capillary Glucose 237 H 173 H Calcium 8.2 L Total Bilirubin 0.6 AST 23 ALT 18 Alkaline Phosphatase 45 Total Protein 5.0 L Albumin 2.6 L 02/06/25 02/06/25 07:42 11:13 WBC RBC Hgb Hct MCV MCH MCHC RDW Plt Count MPV Immature Gran % (Auto) Neut % (Auto) Lymph % (Auto) [place] % (Auto) Eos % (Auto) Baso % (Auto) Lymph # (Auto) [place] # (Auto) Eos # (Auto) Baso # (Auto) Abs Immat Gran (auto) Absolute Neuts (auto) Absolute Nucleated RBC Nucleated RBC % Sodium Potassium Chloride Carbon Dioxide Anion Gap BUN Creatinine Estim Creat Clear Calc Estimated GFR Glucose POC Capillary Glucose 115 H 147 H Calcium Total Bilirubin AST ALT Alkaline Phosphatase Total Protein Albumin
[2025-02-06 14:05] VITALS: BP 121/52; PULSE 71; RESP 16; TEMP 36.2; O2SAT 98
[2025-02-06] MEDS: ATORVASTATIN 40 MG TABLET PO (17:16)
[2025-02-06 19:45] VITALS: BP 117/49; PULSE 75; RESP 16; TEMP 36.2; O2SAT 98
[2025-02-06] MEDS: cefTRIAXone 1 GM in SODIUM CHLORIDE 0.9% IV 50 ML 100 ML IVPB (21:36)
[2025-02-06] MEDS: oxyBUTYnin CHLORIDE XL 5 MG TAB.ER.24 15 MG PO (21:37)
[2025-02-07] VITALS (7 sets, daily range): BP systolic 122–148; BP diastolic 47–64; PULSE 65–108; RESP 16–20; TEMP 36.1–36.6; O2SAT 95–98
[2025-02-07] MEDS: ACETAMINOPHEN 325 MG TABLET 650 MG PO ×2 (05:47→09:28)
[2025-02-07 07:17] LABS: Hematocrit 32.0 % (42.0-52.0); Hemoglobin 10.0 g/dL (14.0-18.0); Immature Granulocyte Percent A 0.4 % (0-0.5); Lymphocytes Absolute Auto 1.85 K/mm3 (0.9-3.2); Mean Corpuscular HGB Conc 31.3 g/dl (32-36); Mean Corpuscular Hemoglobin 30.7 pg (26-34); Mean Corpuscular Volume 98.2 fl (80-100); Nucleated Red Blood Cells Absolute Auto 0.000 K/mm3 (0.0-0.012); Nucleated Red Blood Cells Perc 0.0 % (0.0-0.2); Platelet Count Result 197 k/mm3 (150-375); Red Blood Count 3.26 M/mm3 (4.6-6.20); White Blood Count 7.6 K/mm3 (4.5-10.0)
[2025-02-07] MEDS: FLUTICASONE/SALMETEROL 115-21 MCG INHALER 1 PUFF 2 PUFF INHALATION (07:29)
[2025-02-07 07:47] LABS: Alanine Aminotransferase 18 U/L (6-50); Albumin Level 2.6 g/dL (3.5-5.1); Alkaline Phosphatase 48 U/L (38-126); Anion Gap 2 mmol/L (4-12); Aspartate Amino Transferase 22 U/L (17-59); Bilirubin,Total 0.6 mg/dL (0.2-1.3); Blood Urea Nitrogen 24 mg/dL (9-20); Calcium 8.3 mg/dL (8.4-10.2); Carbon Dioxide 28 mmol/L (22-30); Chloride 104 mmol/L (98-107); Estimated CRCL calculation 45 ml/min; Estimated Glomerular Filt Rate 60; Glucose 115 mg/dL (65-110); Potassium 4.2 mmol/L (3.4-5.0); Sodium 134 mmol/L (137-145); Total Protein 5.1 g/dL (6.3-8.2)
[2025-02-07] MEDS: VITAMIN B COMPLEX CAPSULE 1 CAP PO (09:29)
[2025-02-07] MEDS: OMEGA 3 POLYUNSAT FATTY ACIDS 1 GM CAP PO (09:29)
[2025-02-07] MEDS: FINASTERIDE 5 MG TABLET BY MOUTH (09:29)
[2025-02-07] MEDS: ASPIRIN 81 MG ENTERIC TABLET PO (09:29)
[2025-02-07] MEDS: dilTIAZem HCL CD 180 MG CAP.24HR PO (09:29)
[2025-02-07] MEDS: MULTIVITAMINS /C LUTEIN (CENTRUM SILVER) TABLET *BKC 1 TAB PO (09:29)
[2025-02-07] MEDS: FERROUS SULFATE 325 MG TABLET PO (09:29)
--- NOTE | 2025-02-07 13:46 | P.PNGS_ITS ---
Progress Note: A&P Assessment and Plan (1) Mass of left forearm: Code(s): R22.32 - Localized swelling, mass and lump, left upper limb Status: Acute Assessment and Plan: * CT of the left upper extremity yesterday demonstrated that this mas is at or immediately deep to the skin surface and not intramuscular. * Surgically stable for discharge with follow up in [address] Mosqueda. * Hemoglobin stable. Xarelto held today. Okay to continue tomorrow. * Continue daily dressing changes or more frequently if saturated. (2) Type 2 diabetes mellitus: Qualifiers: Diabetes mellitus technician terminal and repeater insulin use: without technician terminal and repeater use Diabetes mellitus complication status: without complication Qualified Code(s): E11.9 - Type 2 diabetes mellitus without complications Code(s): E11.9 - Type 2 diabetes mellitus without complications Status: Acute Assessment and Plan: [place] per hospitalist. (3) Atrial fibrillation: Qualifiers: Atrial fibrillation type: unspecified Qualified Code(s): I48.91 - Unspecified atrial fibrillation Code(s): I48.91 - Unspecified atrial fibrillation Status: Chronic Assessment and Plan: OK to resume Xarelto tomorrow. (4) UTI (urinary tract infection): Code(s): N39.0 - Urinary tract infection, site not specified Status: Acute Assessment and Plan: Urine culture preliminarily growing gram negative bacilli. Continue IV ceftriaxone. Outpatient antibiotics per hospitalist reccomendations. Plan Discussed patient's case and plan of care with Dr. Mosqueda. Subjective Subjective Date/Time Seen: 02/07/25 13:46 Patient reports: no new complaints, feels better and still having pain Interval history: Superficial blister unroofed yesterday at the bedside. Patient tolerated well. Minimal bleeding overnight, although he did say he bumped it on the side of his bed when trying to move last night. Hemoglobin stable at 10.0. States his arm feels slightly better today. Exam Const: General: comfortable and no acute distress Extrem: Other: Left upper extremity with circumferential ecchymosis and purpura that extends from forearm to upper arm. Large palpable mass to outer aspect of elbow/forearm. Superficial bullae unroofed yesterday. Jelly-like substance still present to distal aspect of the wound. Proximal aspect seems to have this same substance underneath a layer of skin. Would expect this to drain eventually. Minimal saturation to bandage this morning. Mass is very tender, but no purulence. Objective Data Vital Signs Vital Signs: Vital Signs - 24 hr 02/06/25 14:05 02/06/25 19:45 02/07/25 04:40 Temperature 97.1 F L 97.2 F L 97 F L Pulse Rate 71 75 74 Respiratory Rate 16 16 20 Blood Pressure 121/52 L 117/49 L 131/56 L Pulse Oximetry 98 98 98 Oxygen Delivery 02/07/25 07:28 02/07/25 07:31 02/07/25 08:00 Temperature Pulse Rate 71 73 Respiratory Rate 16 16 Blood Pressure Pulse Oximetry Oxygen Delivery Room Air 02/07/25 11:07 02/07/25 11:10 02/07/25 11:13 Temperature 97.4 F L 97.3 F L 97.5 F L Pulse Rate 76 79 108 H Respiratory Rate 18 18 18 Blood Pressure 148/64 H 145/60 H 138/63 Pulse Oximetry 98 95 96 Oxygen Delivery Intake/Output Intake/Output: Intake & Output 02/04/25 02/05/25 02/06/25 02/07/25 23:59 23:59 23:59 23:59 Intake Total 1320 830 240 390 Output Total 1525 488 375 9535 Balance -205 085 -601 -922 Meds/Results Medications: Active Medications Generic Name Dose Route Start Last Admin Trade Name Freq PRN Reason Stop Dose Admin Acetaminophen 650 mg 02/03/25 16:35 02/07/25 09:28 Acetaminophen 325 Mg Tablet PO 650 mg Q4H PRN Administration Mild Pain (1-3) or Fever Albuterol 2 puff 02/04/25 09:38 Albuterol Sulfate (*Sp) Aerosol 1 Puff INHALATION Q4H PRN Shortness Of Breath Or Wheezing Amoxicillin/Clavulanate Potassium 1 tablet 02/07/25 21:00 Amoxicillin/Clavulanate K 875-125 Mg Tab PO 02/10/25 09:01 Q12HR MELISSA Aspirin 81 mg 02/04/25 09:00 02/07/25 09:29 Aspirin 81 Mg Enteric Tablet PO 81 mg QAM MELISSA Administration Atorvastatin Calcium 40 mg 02/04/25 18:00 02/06/25 17:16 Atorvastatin 40 Mg Tablet PO 40 mg QPM MELISSA Administration Diltiazem HCl 180 mg 02/04/25 09:00 02/07/25 09:29 Diltiazem Hcl Cd 180 Mg Cap.24hr PO 180 mg DAILY MELISSA Administration Ferrous Sulfate 325 mg 02/04/25 09:00 02/07/25 09:29 Ferrous Sulfate 325 Mg Tablet PO 325 mg DAILY MELISSA Administration Finasteride 5 mg 02/04/25 09:00 02/07/25 09:29 Finasteride 5 Mg Tablet BY MOUTH 5 mg DAILY MELISSA Administration Fish Oil 1 gm 02/04/25 09:00 02/07/25 09:29 [place] 3 Polyunsat Fatty Acids 1 Gm Cap PO 1 gm QAM MELISSA Administration Multivitamins/Minerals 1 tab 02/04/25 09:00 02/07/25 09:29 Multivitamins /C Lutein (Centrum Silver) Tablet *Bkc PO 1 tab DAILY MELISSA Administration Oxybutynin Chloride 15 mg 02/04/25 21:00 02/06/25 21:37 Oxybutynin Chloride Xl 5 Mg Tab.Er.24 PO 15 mg HS MELISSA Administration Rivaroxaban 20 mg 02/04/25 18:00 02/04/25 17:19 Rivaroxaban 20 Mg Tablet PO 20 mg On Hold: 02/05/25 17:03 QPM MELISSA Administration Fluticasone/Salmeterol 2 puff 02/04/25 08:00 02/07/25 07:29 Fluticasone/Salmeterol 115-21 Mcg Inhaler 1 Puff INHALATION 2 puff Q12HRT MELISSA Administration Vitamin B Complex 1 cap 02/04/25 09:00 02/07/25 09:29 Vitamin B Complex Capsule PO 1 cap DAILY MELISSA Administration Radiology Results: ITS Impressions Shoulder X-Ray 02/03/25 16:55 Impression: No acute fracture or malalignment. Shoulder CT 02/04/25 08:27 IMPRESSION: 1. 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 No acute osseous abnormality. 2. Moderate left acromioclavicular osteoarthritis. 3. Mild upper thoracic levoscoliosis with severe spondylosis and bridging osteophytes at multiple levels consistent with diffuse idiopathic skeletal hyperostosis (DISH). Lumbar Spine X-Ray 02/05/25 09:57 Impression: No acute abnormality. Foot X-Ray 02/05/25 10:59 Impression: Healing fracture detailed above Soft Tissue Ultrasound 02/05/25 14:45 Impression: 1: Complex partially cystic soft tissue mass of the left arm. Differential diagnosis includes soft tissue sarcoma, peripheral nerve sheath tumor, chronic organized hematoma and abscess or infected cyst. Consider cross-sectional imaging with MRI with and without contrast for further characterization. Biopsy recommended for definitive diagnosis. If infection is suspected, consider aspiration for culture. Upper Extremity CT 02/06/25 13:32 IMPRESSION: 1. Nonspecific 5.7 x 4.9 x 2.0 cm fusiform soft tissue density at or immediately deep to the skin surface at the dorsal aspect of the proximal forearm for which differential would include neoplasm either benign or malignant or complex fluid collection such as hematoma or abscess in the appropriate clinical setting. Correlate clinically and would consider biopsy and/or aspiration for further evaluation. Labs Labs: Laboratory Results - last 24 hr 02/06/25 02/06/25 02/07/25 16:18 19:48 06:29 WBC 7.6 RBC 3.26 L Hgb 10.0 L Hct 32.0 L MCV 98.2 MCH 30.7 MCHC 31.3 L RDW 16.1 H Plt Count 197 MPV 9.6 Immature Gran % (Auto) 0.4 Neut % (Auto) 61.4 Lymph % (Auto) 24.3 [place] % (Auto) 9.1 H Eos % (Auto) 4.3 Baso % (Auto) 0.5 Lymph # (Auto) 1.85 [place] # (Auto) 0.7 H Eos # (Auto) 0.3 Baso # (Auto) 0.0 Abs Immat Gran (auto) 0.03 Absolute Neuts (auto) 4.7 Absolute Nucleated RBC 0.000 Nucleated RBC % 0.0 Sodium 134 L Potassium 4.2 Chloride 104 Carbon Dioxide 28 Anion Gap 2 L BUN 24 H Creatinine 1.17 Estim Creat Clear Calc 45 Estimated GFR 60 Glucose 115 H POC Capillary Glucose 120 H 196 H Calcium 8.3 L Total Bilirubin 0.6 AST 22 ALT 18 Alkaline Phosphatase 48 Total Protein 5.1 L Albumin 2.6 L 02/07/25 02/07/25 08:43 12:18 WBC RBC Hgb Hct MCV MCH MCHC RDW Plt Count MPV Immature Gran % (Auto) Neut % (Auto) Lymph % (Auto) [place] % (Auto) Eos % (Auto) Baso % (Auto) Lymph # (Auto) [place] # (Auto) Eos # (Auto) Baso # (Auto) Abs Immat Gran (auto) Absolute Neuts (auto) Absolute Nucleated RBC Nucleated RBC % Sodium Potassium Chloride Carbon Dioxide Anion Gap BUN Creatinine Estim Creat Clear Calc Estimated GFR Glucose POC Capillary Glucose 127 H 173 H Calcium Total Bilirubin AST ALT Alkaline Phosphatase Total Protein Albumin
--- NOTE | 2025-02-07 14:35 | PM.DS ---
DS: Admitting Diagnosis Discharge Date 02/07/2025 Admitting Diagnosis Fall, mass of left forearm, uti DS: Discharge Diagnosis Discharge Diagnosis (1) Essential hypertension: Code(s): I10 - Essential (primary) hypertension Status: Chronic (2) Atrial fibrillation: Qualifiers: Atrial fibrillation type: unspecified Qualified Code(s): I48.91 - Unspecified atrial fibrillation Code(s): I48.91 - Unspecified atrial fibrillation Status: Chronic (3) Chronic anticoagulation: Code(s): Z79.01 - ocean transportation intermediary (current) use of anticoagulants Status: Acute (4) UTI (urinary tract infection): Code(s): N39.0 - Urinary tract infection, site not specified Status: Acute (5) Left rotator cuff tear: Qualifiers: Encounter type: subsequent encounter Rotator cuff tear extent: unspecified tear extent Rotator cuff tear trauma status: traumatic Qualified Code(s): S46.012D - Strain of muscle(s) and tendon(s) of the rotator cuff of left shoulder, subsequent encounter Code(s): M75.102 - Unspecified rotator cuff tear or rupture of left shoulder, not specified as traumatic Status: Acute (6) Primary osteoarthritis involving multiple joints: Code(s): M15.0 - Primary generalized (osteo)arthritis Status: Acute Plan 1. Fall: - Imaging including shoulder CT, x-ray elbow, x-ray wrist negative for any fractures - X-ray of left foot, ankle, lumbar x-ray unremarkable - Await soft tissue ultrasound for left arm with increased swelling - PT/OT as tolerated - Pain control as needed 2. Mass of left forearm - swelling and bleeding noticed to left forearm after ground level fall that occurred 2 days prior to admission - general surgery consulted - order CT of the left upper extremity he to differentiate between subcutaneous versus intramuscular - hold Xarelto, hemoglobin stable - continue daily dressing changes 3. Possible UTI: - Continue with ceftriaxone - Follow-up urine culture - Culture shows growth of Gram-negative bacilli -continue IV antibiotics 4. History of atrial fibrillation: - Continue with Cardizem, Xarelto 5. Code status: DNR 6. DVT prophylaxis: On Xarelto 7. Disposition: Likely needs placement to SNF, egg caser aware DS: Summary Hospital Course Reason for hospitalization: fall Hospital Course: 84-year-old male patient presented today via ambulance after having a ground level fall where he landed on his left upper extremity. Patient tells me that he did not experience any dizziness nausea vomiting when trying to ambulate today at his house without using his walker. Patient reports that he was in able to maintain balance causing him to fall to the ground striking his left shoulder and left arm. The patient did suffer a skin tear to left arm causing moderate bleeding to skin tear site. ED work-up reveals: Patient was brought in via ambulance s/p: ground level fall, vitals were stable, physical exam showed skin tear left and below posturally and left wrist with active bleeding bleeding was controlled by pressure dressing, x-ray left wrist and left elbow left shoulder showed no acute osseous abnormality, patient reported that he is unable to move left arm. Patient requested further evaluation for mobility assistance citing he would not be able to ambulate at his home. Patient admitted in the setting now possible SNF placement due to new onset debility with latest fall. General surgery consulted regarding a mass of left forearm. Patient fell 2 days prior to admission onto his left side and noticed immediate bleeding and swelling to his left forearm. Patient also takes Xarelto for atrial fibrillation. Imaging of the left elbow/wrist/shoulder/ankle/foot and lumbar spinal showed no acute osseous abnormalities or fractures. Concern for soft tissue sarcoma, hematoma, abscess/infected cyst. Agree with assessment of General surgery in that exam resembles hematoma with blood filled bullae on top, with lower suspicion of infection. Patient does not have any warmth to the surrounding area or purulence drainage. Upper extremity CT scan was obtained which showed a nonspecific a 5.7 x 4.9 x 2.0 cm fusiform soft tissue density at or immediately deep to the skin surface at the dorsal aspect of the proximal forearm for which differential would include neoplasm, complex fluid collection such as hematoma or abscess in the appropriate clinical setting. Correlate this with likely diagnosis of hematoma given injury history. Bullae was unroofed on 02/06 in hemostasis was maintained with no active bleeding noticed during exam per general surgery. General surgery reassess the patient on 02/07 and cleared the patient for discharge with appropriate follow-up in [address] Mosqueda. Patient also had a urinary tract infection, culture sensitivity for Klebsiella oxytocia with broad susceptibility. Patient otherwise hemodynamically stable and will be discharged to SNF on Augmentin for the next 2 days as patient has been receiving IV ceftriaxone for urinary tract infection with appropriate coverage. Patient otherwise hemodynamically stable for discharge at this time. Emphasized following up with Dr. Mosqueda in 2 weeks. Patient mandible to this plan. Status at Discharge Functional status at discharge: uses cane/walker Overall status at discharge: patient is progressing back to baseline Time Spent with Patient Time attestation: Total time spent providing and/or coordinating discharge services: 32 Exam Narrative: General appearance: Well-developed, wrist swelling observed Head: Normocephalic, nontraumatic Eyes: Clear conjunctiva ENT: Oropharynx normal, ears normal, nose normal Neck: Supple, nontender Chest and respiratory: Airway patent, no respiratory distress, no accessory muscle use Heart: Regular rate/rhythm Abdomen: Soft, nontender, no organomegaly, quiet bowel sounds Vascular: Normal peripheral pulses, normal capillary refill. Musculoskeletal: Large mass to outer aspect of left forearm/elbow with circumferential ecchymosis. Superficial bullae noted, bandage appears to be minimally saturated but glass unloading equipment tender to palpation, no purulence Neurologic: Alert and oriented ?3, DS: Data Data Completed and Pending Labs on day of discharge: Labs from last 24 hours 02/07/25 02/07/25 02/07/25 12:18 08:43 06:29 WBC 7.6 RBC 3.26 L Hgb 10.0 L Hct 32.0 L MCV 98.2 MCH 30.7 MCHC 31.3 L RDW 16.1 H Plt Count 197 MPV 9.6 Immature Gran % (Auto) 0.4 Neut % (Auto) 61.4 Lymph % (Auto) 24.3 [place] % (Auto) 9.1 H Eos % (Auto) 4.3 Baso % (Auto) 0.5 Lymph # (Auto) 1.85 [place] # (Auto) 0.7 H Eos # (Auto) 0.3 Baso # (Auto) 0.0 Abs Immat Gran (auto) 0.03 Absolute Neuts (auto) 4.7 Absolute Nucleated RBC 0.000 Nucleated RBC % 0.0 Sodium 134 L Potassium 4.2 Chloride 104 Carbon Dioxide 28 Anion Gap 2 L BUN 24 H Creatinine 1.17 Estim Creat Clear Calc 45 Estimated GFR 60 Glucose 115 H POC Capillary Glucose 173 H 127 H Calcium 8.3 L Total Bilirubin 0.6 AST 22 ALT 18 Alkaline Phosphatase 48 Total Protein 5.1 L Albumin 2.6 L 02/06/25 02/06/25 19:48 16:18 WBC RBC Hgb Hct MCV MCH MCHC RDW Plt Count MPV Immature Gran % (Auto) Neut % (Auto) Lymph % (Auto) [place] % (Auto) Eos % (Auto) Baso % (Auto) Lymph # (Auto) [place] # (Auto) Eos # (Auto) Baso # (Auto) Abs Immat Gran (auto) Absolute Neuts (auto) Absolute Nucleated RBC Nucleated RBC % Sodium Potassium Chloride Carbon Dioxide Anion Gap BUN Creatinine Estim Creat Clear Calc Estimated GFR Glucose POC Capillary Glucose 196 H 120 H Calcium Total Bilirubin AST ALT Alkaline Phosphatase Total Protein Albumin Discharge Plan Discharge Attending physician on discharge: Carlos Sheridan Consulting providers: Milo Kunz; Miguel Mosqueda Discharging Clinician: Milo Kunz Anticipated Discharge Date/Time: 02/07/25 14:33 Patient Disposition: SNF Activity: no straining Diet: regular Discharge Instructions: Continue daily wound care to left arm. Clean and dry the area. Apply Xeroform gauze directly to hematoma. Cover with 4 x 4 gauze and ABD pad. Wrap the arm with Kerlix. Tape the end to secure. OK to resume Xarelto tomorrow 02/08/2025. Call the general surgery office at [phone] to schedule follow-up appointment for 2 weeks from today. If you notice any increased pain, bleeding, or swelling or develop any vomiting, fevers, or other symptoms please call the office or go to the emergency department. Discharge disposition: Home Take medications as prescribed. You will be prescribed Augmentin for an additional 2 days. Take this twice daily for the next 2 days. Monitor blood pressures Take caution while standing, rising, or moving Change positions slowly taking a break between each position change If you standing feel dizzy sit back down and take a break Encouraged to continue with yearly vaccinations Return to the emergency department if he developed sudden shortness of breath, chest pain, nausea, vomiting, upset stomach or intractable diarrhea Return to the emergency department if you develop fever greater than 101.5 Follow-up with the primary care physician within 1-2 weeks Thank you for [facility] for your healthcare needs Patient Language: Citizen Of [place] Stand Alone Forms: General Discharge Information Follow-up/Referrals: Patt Castellon APRN [Primary Care Provider, Internal Medicine] Miguel Mosqueda DO [Physician, General Surgery] - 2 Weeks Referral Note: Call to schedule. Discharge Medications: New amoxicillin-pot clavulanate 875-125 mg tablet 1 tablet PO Q12H Qty: 4 0RF Continued Adults Multivitamin 18 mg iron-400 mcg-25 mcg Tablet 1 tablet PO DAILY atorvastatin 40 mg tablet 40 mg PO QPM aspirin 81 mg Tablet,Delayed Release (Dr/Ec) 81 mg PO QAM 30 Days Qty: 30 2RF Xarelto 15 mg Tablet 20 mg PO QPM Patient Comments: Spouse states pt takes 20mg (DME) lancets [Lancets, Super Thin] Misc See Rx Instructions .ROUTE .MEDSUPPLY Qty: 100 2RF Rx Instructions: Use to check blood sugar daily (DME) Contour Next Test Strips Strip See Rx Instructions .ROUTE .MEDSUPPLY Qty: 100 0RF Rx Instructions: Use to test blood sugar once daily finasteride 5 mg tablet See Rx Instructions .ROUTE .COMPLEX Qty: 90 1RF Dose Instruction: TAKE 1 TABLET BY MOUTH EVERY DAY Rx Instructions: TAKE 1 TABLET BY MOUTH EVERY DAY oxybutynin chloride 15 mg tablet extended release 24hr 15 mg PO HS Qty: 90 1RF metformin 1,000 mg tablet 1,000 mg PO DAILY Qty: 180 1RF fluticasone propion-salmeterol [Wixela Inhub] 250-50 mcg/dose blister with device See Rx Instructions .ROUTE .COMPLEX Qty: 180 1RF Dose Instruction: INHALE 1 PUFF BY MOUTH TWICE A DAY Rx Instructions: INHALE 1 PUFF BY MOUTH TWICE A DAY diltiazem HCl 180 mg capsule,extended release 24hr See Rx Instructions .ROUTE .COMPLEX Qty: 90 2RF Dose Instruction: TAKE 1 CAPSULE BY MOUTH EVERY DAY Rx Instructions: TAKE 1 CAPSULE BY MOUTH EVERY DAY ferrous sulfate 325 mg (65 mg iron) tablet 325 mg PO DAILY Qty: 90 0RF Discontinued vitamin B complex [B Complex-Vitamin B12] Tablet 1 tablet PO DAILY omega-3 fatty acids Capsule 1,000 mg PO DAILY albuterol sulfate [ProAir HFA] 90 mcg/actuation HFA aerosol inhaler 2 puff INHALATION Q4H PRN (Reason: shortness of breath or wheezing) Qty: 8.5 5RF Date of admission: 02/04/25 14:02 Primary Care Provider: Patt Castellon Admitting Provider: Kenyon Fernandez Attending physician on admission: Kenyon Fernandez Condition: Guarded Prognosis Quality VTE Prophylaxis VTE prophylaxis: pharmacologic ordered
[2025-02-07 15:18] LABS: SARS-CoV-2 RNA PCR Negative (Negative)
[2025-02-07] MEDS: ATORVASTATIN 40 MG TABLET PO (17:40)
== END 2025-02-07 19:15 | DRG 605 ==
LOC: ANHED 16:05 → ANH3MEDSUR 17:34
PROVIDERS: Nurse Practitioner; Admitting Provider Internal Medicine; Emergency Provider Emergency Medicine; PCP Nurse Practitioner Family; Visit Provider Physician Assistant
DX: S40.022A Contusion of left upper arm, initial encounter (principal); N39.0 Urinary tract infection, site not specified; I48.20 Chronic atrial fibrillation, unspecified; R22.32 Localized swelling, mass and lump, left upper limb; S61.512A Laceration without foreign body of left wrist, initial encounter; S51.012A Laceration without foreign body of left elbow, initial encounter; N18.30 Chronic kidney disease, stage 3 unspecified; I12.9 Hypertensive chronic kidney disease with stage 1 through stage 4 chronic kidney disease, or unspecified chronic kidney disease; I25.10 Atherosclerotic heart disease of native coronary artery without angina pectoris; E11.22 Type 2 diabetes mellitus with diabetic chronic kidney disease; E11.42 Type 2 diabetes mellitus with diabetic polyneuropathy; E78.2 Mixed hyperlipidemia; J44.9 Chronic obstructive pulmonary disease, unspecified; M75.102 Unspecified rotator cuff tear or rupture of left shoulder, not specified as traumatic; M54.17 Radiculopathy, lumbosacral region; M48.07 Spinal stenosis, lumbosacral region; M96.1 Postlaminectomy syndrome, not elsewhere classified; N40.0 Benign prostatic hyperplasia without lower urinary tract symptoms; R29.6 Repeated falls; G47.33 Obstructive sleep apnea (adult) (pediatric); G31.84 Mild cognitive impairment of uncertain or unknown etiology; Z79.01 Long term (current) use of anticoagulants; Z11.52 Encounter for screening for COVID-19; Z86.73 Personal history of transient ischemic attack (TIA), and cerebral infarction without residual deficits; Z98.1 Arthrodesis status; Z87.891 Personal history of nicotine dependence; Z95.5 Presence of coronary angioplasty implant and graft
CPT/HCPCS: 36415; 72100; 73030; 73080; 73110; 73200; 73201; 73600; 73620; 76882; 80053; 81001; 82948; 85025; 85610; 85730; 87086; 87186; 87635; 94640; 97110; 97162; 97166; 97530; 97535; 99285; A9270; G0378; J0696; J1815; Q9967

== ENCOUNTER 2025-04-03 08:43 | Emergency (ER) | payer OTHER, SELFPAY ==
--- NOTE | ~2025-04-03 | CT_ITS ---
EXAM/PROCEDURE: CT foot LT wo con HISTORY: foot fx COMPARISON: Plain films same date TECHNIQUE: Left foot CT FINDINGS: Minimal to nondisplaced fractures through the second third and fourth metatarsal bases with the second and third fractures extending into the tarsometatarsal articulation. The third metatarsal fracture remains in the metaphyseal portion. No other fractures seen. Extensive soft tissue swelling noted. IMPRESSION: Minimally displaced fractures involving the bases of the second third and fourth metatarsal bones with the second and third fractures extending into the tarsometatarsal joints. No Lisfranc's fracture, although with similar mechanism, Lisfranc's ligamentous injury may be present. Reviewed, dictated and finalized at location A. ILE MACHINE MECHANIC IMPRESSION: Minimally displaced fractures involving the bases of the second third and fourt h metatarsal bones with the second and third fractures extending into the tarso metatarsal joints. No Lisfranc's fracture, although with similar mechanism, Lis franc's ligamentous injury may be present.
--- NOTE | ~2025-04-03 | XR_ITS ---
EXAMINATION: XR knee RT 3V DATE: 04/03/2025 10:49 INDICATION: Right knee injury post fall TECHNIQUE: Anteroposterior, oblique and crosstable lateral views of the right knee were obtained COMPARISON: None. FINDINGS: Alignment is normal. No fracture. Chondrocalcinosis in the medial and lateral compartments. There is mild to moderate joint space during the lateral compartment and mild joint space narrowing the medial compartment although severity of joint space narrowing can be underestimated on nonweightbearing im aging. Small marginal osteophytes in the lateral compartment and tiny marginal ossified severity medial and patellofemoral compartments. Moderate to large right knee joint effusion without layering lipohemarthrosis. Soft tissues are otherwise unremarkable. IMPRESSION: 1. Moderate to large right knee joint effusion without acute osseous abnormality. 2. 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 Reviewed, dictated and finalized at location A. GLAZER IMPRESSION: 1. Moderate to large right knee joint effusion without acute osseous abnormalit y. 2. Chondrocalcinosis and tricompartmental osteoarthritis at the right knee join t which is of at least mild to moderate severity at the lateral compartment.
--- NOTE | ~2025-04-03 | XR_ITS ---
EXAMINATION: XR foot LT 2V DATE: 04/03/2025 09:22 INDICATION: Injury TECHNIQUE: Left foot x-ray were obtained. COMPARISON: 02/05/2025 FINDINGS: Minimally displaced oblique fracture through the base of the second metatarsal bone noted which may extend into the tarsometatarsal articulation. There may also be nondisplaced fracture in the proximal metaphysis of the third metatarsal bone. No other apparent acute fractures. Healing fracture proximal proximal fifth digit. Moderately severe soft tissue swelling in the midfoot region. No suspicious radiopaque foreign body seen. IMPRESSION: 1. Suspect new minimal to nondisplaced fractures in the proximal second and third metatarsal bones with the second metatarsal fracture possibly extending into the tarsometatarsal articulation. Lisfranc's injury is also not excluded. 2. Healing proximal phalanx fifth digit fracture. Reviewed, dictated and finalized at location A. STANT TERMINAL MANAGER IMPRESSION: 1. Suspect new minimal to nondisplaced fractures in the proximal second and thi rd metatarsal bones with the second metatarsal fracture possibly extending into the tarsometatarsal articulation. Lisfranc's injury is also not excluded. 2. Healing proximal phalanx fifth digit fracture.
--- NOTE | ~2025-04-03 | XR_ITS ---
EXAMINATION: XR hip BI wo pelvis DATE: 04/03/2025 09:22 INDICATION: Injury TECHNIQUE: Bilateral hip and pelvis were obtained. COMPARISON: September 05, 2024 FINDINGS: No displaced fracture subluxation or dislocation. Mild to moderate osteoarthritic degenerative changes in both hips. Posterior pelvic bones obscured by overlying stool and bowel gas. Fusion hardware at the lumbosacral junction unchanged. IMPRESSION: 1. No displaced fracture lucency. Reviewed, dictated and finalized at location A. LER
[2025-04-03 08:44] VITALS: BP 153/56; PULSE 84; RESP 18; TEMP 36.8; O2SAT 100
--- NOTE | 2025-04-03 08:49 | ECG_ITS ---
Test Date: 2025-04-03 08:57:02 Measurements Intervals [place] Rate: 82 P: 0 OR: 0 QRS: -72 QRSD: 102 T: 27 QT: 352 QTc: 413 Interpretive Statements ATRIAL FIBRILLATION PATTERN CONSISTENT WITH PULMONARY DISEASE LEFT ANTERIOR FASCICULAR BLOCK [QRS AXIS <= -45, QR IN I, RS IN II] ABNORMAL ECG Compared to ECG 09/05/2024 13:10:21 Myocardial infarct finding no longer present Electronically Signed On 04-03-2025 17:07:48 [employer] by Marcell Arevalo M.D.
[2025-04-03 09:09] LABS: Hematocrit 43.9 % (42.0-52.0); Hemoglobin 14.0 g/dL (14.0-18.0); Immature Granulocyte Percent A 0.6 % (0-0.5); Lymphocytes Absolute Auto 2.39 K/mm3 (0.9-3.2); Mean Corpuscular HGB Conc 31.9 g/dl (32-36); Mean Corpuscular Hemoglobin 31.0 pg (26-34); Mean Corpuscular Volume 97.3 fl (80-100); Nucleated Red Blood Cells Absolute Auto 0.000 K/mm3 (0.0-0.012); Nucleated Red Blood Cells Perc 0.0 % (0.0-0.2); Platelet Count Result 206 k/mm3 (150-375); Red Blood Count 4.51 M/mm3 (4.6-6.20); White Blood Count 12.6 K/mm3 (4.5-10.0)
[2025-04-03 09:21] LABS: INR 2.1; Prothrombin Time 23.2 Seconds (11.1-14.7)
[2025-04-03 09:22] LABS: Partial Thromboplastin Time 50.1 Seconds (22.3-36.8)
[2025-04-03 09:29] LABS: Alanine Aminotransferase 37 U/L (6-50); Albumin Level 3.5 g/dL (3.5-5.1); Alkaline Phosphatase 56 U/L (38-126); Anion Gap 6 mmol/L (4-12); Aspartate Amino Transferase 41 U/L (17-59); Bilirubin,Total 1.1 mg/dL (0.2-1.3); Blood Urea Nitrogen 32 mg/dL (9-20); Calcium 8.7 mg/dL (8.4-10.2); Carbon Dioxide 27 mmol/L (22-30); Chloride 103 mmol/L (98-107); Estimated CRCL calculation 46 ml/min; Estimated Glomerular Filt Rate 60; Glucose 151 mg/dL (65-110); Potassium 4.3 mmol/L (3.4-5.0); Sodium 136 mmol/L (137-145); Total Protein 6.3 g/dL (6.3-8.2)
[2025-04-03] MEDS: HYDROcodone/acetaminophen (*CRX) 5-325 MG TABLET 1 TAB PO (09:59)
--- NOTE | 2025-04-03 10:00 | ED.FALL ---
HPI - Fall General Chief Complaint: Fall Stated Complaint: fall Tuesday, bilateral leg pain Time Seen by Provider: 04/03/25 08:45 History of Present Illness HPI Narrative: Pt lost balance and fell landing on left hip and foot. Pt denies LOC or neck pain. Pt complains of pain in left foot and hip. Pt has prior fx of left foot per pt. Related Data Home Medications ?Medication ?Instructions ?Recorded ?Confirmed ?Last Taken ?Type multivit with minerals-iron 18 1 tablet PO DAILY 12/10/21 03/22/25 01/15/25 History mg-folic ac 400 mcg-vit K 25 mcg tablet (Adults Multivitamin) atorvastatin 40 mg tablet 40 mg PO QPM 10/21/23 03/22/25 02/02/25 21:50 History 40 mg rivaroxaban 15 mg tablet (Xarelto) 20 mg PO QPM 02/03/25 03/22/25 02/02/25 21:54 History 15 mg Allergies Allergy/AdvReac Type Severity Reaction Status Date / Time Opioids - Morphine Analogues AdvReac Intermediate Nausea and Verified 04/03/25 08:50 Vomiting Review of Systems Review of Systems: All systems reviewed & are unremarkable except as noted in HPI and below PMFSH Past Medical History Medical History Hip pain, left Frequent falls Unable to ambulate Acute postoperative pain Hematoma Fall Left shoulder pain Infarction of right basal ganglia Confusion Chronic kidney disease, stage 3 Chronic anticoagulation Cerebral cavernoma Obstructive sleep apnea intolerant to CPAP Lumbosacral stenosis with neurogenic claudication with epidural steroid injection L4-L5 December 2022 Mild cognitive impairment COPD with asthma Lumbosacral radiculopathy Claudication of both lower extremities Postlaminectomy syndrome Lumbosacral spondylosis Long COVID Atrial fibrillation Benign non-nodular prostatic hyperplasia without lower urinary tract symptoms Essential hypertension 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 Surgical History Surgical History History of lumbar discectomy (08/2024) minimally invasive at L3-L4 and L4-L5 History of lumbar fusion History of cardiac catheterization (03/2023) multivessel coronary disease to 80% stenosis of the proximal LAD 70% stenosis midportion of LAD very small diagonal branch, proximal and mid left circ have luminal irregularities 90% long stenosis left circumflex, small caliber obtuse marginal branch with mild diffuse disease obtuse marginal 2 has a moderate stenosis of the midportion right coronary artery is dominant vessel with 90% stenosis of the midportion and mid RPDA has 2 tandem stenosis is of 60-70% the patient was referred for CV surgery however the patient then underwent staged procedure at [facility] with PCI and stent to mid distal left circ and in September 2023 he had a PCI to the mid RCA History of cataract surgery Family History Family History Sibling Patient's sister is in good health Patient's brother is in good health Father Heart disease Acute myocardial infarction Telangiectasia Ykgje-Mnndp-Ocltz disease Angiodysplasia AVM (arteriovenous malformation) Mother Acute myocardial infarction Social History Social History Social History: Surrogate medical decision maker: Genoveva Villa, spouse. Code status: DO NOT RESUSCITATE. Smoking packs per day: 0.5 Smoking cigarettes per day: 10.0 Years smoked: 2 Smoking pack-years: 1.00 Smoking status: Former smoker Second hand tobacco smoke exposure: No Additional smoking assessment comments: quit smoking in his 30s Alcohol intake: never Substance use: never Substance use type: does not use Do You Feel Safe in your Home?: Yes Lack of Transportation: No Lack of Food: Never True Current Housing: I Have Housing Concerned About Future Housing: No Difficulty Paying Gas/Electric Bills: No Difficulty Paying for Meds: No Currently Unemployed: No Education: High School Diploma/GED Difficulty w/ Childcare or Family Care: No Living arrangements: with family Additional living arrangements comments: Lives with in [place]. 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 Spiritual care concerns: No Exam Const: General: healthy appearing and no acute distress Nutritional Appearance: well nourished Orientation/consciousness: patient oriented x3 Limitations: no limitations HENMT: Head: normal to inspection Neck: Neck: normal visual inspection and no meningeal signs Chest: Chest palpation & inspection: normal inspection of the chest Resp: Effort & Inspection: normal respiratory effort Auscultation: clear to auscultation bilaterally Cardio: Rate: regular rate Rhythm: regular rhythm GI: GI Palp: Yes Soft to palpation and No Tenderness to palpation present (GI) Auscultation: normal bowel sounds Back/Spine/Pelvis: Back: no CVA tenderness Skin: General skin exam: normal color Rashes: no rashes Neuro: General: patient oriented x3, moves all extremities, no meningeal signs and no focal motor deficits Speech: normal speech Extrem: General: edema bilateral Other: left leg shortened and extyernally rotated (chronic per pt), Course Vital Signs Vital signs: Vital Signs Temperature 98.2 F 04/03/25 08:44 Pulse Rate 84 04/03/25 08:44 Respiratory Rate 18 04/03/25 08:44 Blood Pressure 153/56 H 04/03/25 08:44 Pulse Oximetry 100 04/03/25 08:44 Oxygen Delivery Room Air 04/03/25 08:44 Temperature 98.2 F 04/03/25 08:44 Pulse Rate 84 04/03/25 08:44 Respiratory Rate 18 04/03/25 08:44 Blood Pressure 153/56 H 04/03/25 08:44 Pulse Oximetry 100 04/03/25 08:44 Oxygen Delivery Room Air 04/03/25 08:44 MDM - Fall MDM Narrative Medical decision making narrative: DDx includes strain vs fx of hip and pelvis and foot. will get x rays and labs in case there is fx. hip and pelvis no fx. fx's noted on 2nd and 3rd metatarsals. dixussed with Dr Patel and asks for CT foot and will see in follow up. Either post op shoe or boot. only have shoe. Lab Data Attestation: I reviewed the patient's lab results. 04/03/25 09:03 04/03/25 09:03 Labs: Lab Results 04/03/25 Range/Units 09:03 WBC 12.6 H (4.5-10.0) K/mm3 RBC 4.51 L (4.6-6.20) M/mm3 Hgb 14.0 D (14.0-18.0) g/dL Hct 43.9 (42.0-52.0) % MCV 97.3 (80-100) fl MCH 31.0 (26-34) pg MCHC 31.9 L (32-36) g/dl RDW 15.3 H (11.5-14.5) % Plt Count 206 (150-375) k/mm3 MPV 9.3 (7.4-10.4) fl Immature Gran % (Auto) 0.6 H (0-0.5) % Neut % (Auto) 69.3 (45.5-73.1) % Lymph % (Auto) 19.0 (18.3-44.2) % [place] % (Auto) 10.2 H (2.6-8.5) % Eos % (Auto) 0.6 (0-4.4) % Baso % (Auto) 0.3 (0.2-1.2) % Lymph # (Auto) 2.39 (0.9-3.2) K/mm3 [place] # (Auto) 1.3 H (0.1-0.6) K/mm3 Eos # (Auto) 0.1 (0-0.3) K/mm3 Baso # (Auto) 0.0 (0.0-0.1) K/mm3 Abs Immat Gran (auto) 0.07 H (0.00-0.031) K/mm3 Absolute Neuts (auto) 8.7 H (1.3-6.7) K/mm3 Absolute Nucleated RBC 0.000 (0.0-0.012) K/mm3 Nucleated RBC % 0.0 (0.0-0.2) % PT 23.2 H (11.1-14.7) Seconds INR 2.1 APTT 50.1 H (22.3-36.8) Seconds Sodium 136 L (137-145) mmol/L Potassium 4.3 (3.4-5.0) mmol/L Chloride 103 (98-107) mmol/L Carbon Dioxide 27 (22-30) mmol/L Anion Gap 6 (4-12) mmol/L BUN 32 H (9-20) mg/dL Creatinine 1.16 (0.7-1.3) mg/dL Estim Creat Clear Calc 46 ml/min Estimated GFR 60 (59 - ) Glucose 151 H (65-110) mg/dL Calcium 8.7 (8.4-10.2) mg/dL Total Bilirubin 1.1 (0.2-1.3) mg/dL AST 41 (17-59) U/L ALT 37 (6-50) U/L Alkaline Phosphatase 56 (38-126) U/L Total Protein 6.3 (6.3-8.2) g/dL Albumin 3.5 (3.5-5.1) g/dL Imaging Data Radiologist's impression: [facility] [address] [place] [id number] XRay Report Signed Patient: Christian Villa I : 1940 MR#: [id number] Age: 84 Acct:[id number] Loc: [facility] ADM Date: 04/03/[address]: Ordering Physician: Lissa Espitia III, DO Date of Service: 04/03/25 Procedure(s): XR knee RT 3V Accession Number(s): [id number] cc: Patt Castellon APRN; Lissa Espitia III, ~ EXAMINATION: XR knee RT 3V DATE: 04/03/2025 10:49 INDICATION: Right knee injury post fall TECHNIQUE: Anteroposterior, oblique and crosstable lateral views of the right knee were obtained COMPARISON: None. FINDINGS: Alignment is normal. No fracture. Chondrocalcinosis in the medial and lateral compartments. There is mild to moderate joint space during the lateral compartment and mild joint space narrowing the medial compartment although severity of joint space narrowing can be underestimated on nonweightbearing imaging. Small marginal osteophytes in the lateral compartment and tiny marginal ossified severity medial and patellofemoral compartments. Moderate to large right knee joint effusion without layering lipohemarthrosis. Soft tissues are otherwise unremarkable. IMPRESSION: 1. Moderate to large right knee joint effusion without acute osseous abnormality. 2. 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 Reviewed, dictated and finalized at location A. TIC WELD TECHNICIAN Please be advised this is a medical document. It is intended for [id number] communication. It is written in medical language and may contain unfamiliar abbreviations or verbiage. Medical documents are intended to carry relevant information, facts as evident, and the clinical opinion of the practitioner at the time of the encounter. This report may have been done utilizing a voice recognition system. Attempts have been made to correct errors. However, there may be uncorrected grammatical, spelling, and recognition errors present. The file time of this note does not necessarily represent the time of service. Dictated By: Kostas Waddell MD 04/03/25 1050 Signed By: <Electronically signed by Kostas Waddell MD in OV> [place] [address] [place], [place] [id number] CT Scan Report Signed Patient: Christian Villa I : 1940 MR#: [id number] Age: 84 Acct:[id number] Loc: [facility] ADM Date: 04/03/[address]: Ordering Physician: Lissa Espitia III, DO Date of Service: 04/03/25 Procedure(s): CT foot LT wo con Accession Number(s): [id number] cc: Patt Castellon APRN; Lissa Espitia III, ~ EXAM/PROCEDURE: CT foot LT wo con HISTORY: foot fx COMPARISON: Plain films same date TECHNIQUE: Left foot CT FINDINGS: Minimal to nondisplaced fractures through the second third and fourth metatarsal bases with the second and third fractures extending into the tarsometatarsal articulation. The third metatarsal fracture remains in the metaphyseal portion. No other fractures seen. Extensive soft tissue swelling noted. IMPRESSION: Minimally displaced fractures involving the bases of the second third and fourth metatarsal bones with the second and third fractures extending into the tarsometatarsal joints. No Lisfranc's fracture, although with similar mechanism, Lisfranc's ligamentous injury may be present. Reviewed, dictated and finalized at location A. TIC WELD TECHNICIAN Please be advised this is a medical document. It is intended for qknw-hy-pcyn communication. It is written in medical language and may contain unfamiliar abbreviations or verbiage. Medical documents are intended to carry relevant information, facts as evident, and the clinical opinion of the practitioner at the time of the encounter. This report may have been done utilizing a voice recognition system. Attempts have been made to correct errors. However, there may be uncorrected grammatical, spelling, and recognition errors present. The file time of this note does not necessarily represent the time of service. Dictated By: Ayden De Paz MD 04/03/25 1020 ECG Data EKG #1: Interpretation: a fib rate [address] or t wave changes Discharge Plan Discharge Clinical Impression: Foot fracture, left, Effusion of knee joint right Patient Disposition: Home Condition: Stable Instructions: Antibiotic Form, Foot Fracture in Adults (ED) Patient Language: Belarusian Prescriptions: New hydrocodone-acetaminophen 5-325 mg tablet 1 tablet PO Q6H PRN (Reason: pain) Qty: 14 0RF ondansetron 4 mg tablet,disintegrating 4 mg PO Q8H PRN (Reason: nausea and vomiting) Qty: 14 0RF No Action Adults Multivitamin 18 mg iron-400 mcg-25 mcg Tablet 1 tablet PO DAILY atorvastatin 40 mg tablet 40 mg PO QPM aspirin 81 mg Tablet,Delayed Release (Dr/Ec) 81 mg PO QAM 30 Days Qty: 30 2RF Xarelto 15 mg Tablet 20 mg PO QPM Patient Comments: Spouse states pt takes 20mg (DME) lancets [Lancets, Super Thin] Misc See Rx Instructions .ROUTE .MEDSUPPLY Qty: 100 2RF Rx Instructions: Use to check blood sugar daily (DME) Contour Next Test Strips Strip See Rx Instructions .ROUTE .MEDSUPPLY Qty: 100 0RF Rx Instructions: Use to test blood sugar once daily finasteride 5 mg tablet See Rx Instructions .ROUTE .COMPLEX Qty: 90 1RF Dose Instruction: TAKE 1 TABLET BY MOUTH EVERY DAY Rx Instructions: TAKE 1 TABLET BY MOUTH EVERY DAY oxybutynin chloride 15 mg tablet extended release 24hr 15 mg PO HS Qty: 90 1RF metformin 1,000 mg tablet 1,000 mg PO DAILY Qty: 180 1RF fluticasone propion-salmeterol [Wixela Inhub] 250-50 mcg/dose blister with device See Rx Instructions .ROUTE .COMPLEX Qty: 180 1RF Dose Instruction: INHALE 1 PUFF BY MOUTH TWICE A DAY Rx Instructions: INHALE 1 PUFF BY MOUTH TWICE A DAY diltiazem HCl 180 mg capsule,extended release 24hr See Rx Instructions .ROUTE .COMPLEX Qty: 90 2RF Dose Instruction: TAKE 1 CAPSULE BY MOUTH EVERY DAY Rx Instructions: TAKE 1 CAPSULE BY MOUTH EVERY DAY ferrous sulfate 325 mg (65 mg iron) tablet 325 mg PO DAILY Qty: 90 0RF Follow-up/Referrals: Patt Castellon APRN [Primary Care Provider, Internal Medicine] Han Patel Jr., DPM [Physician, Podiatry]
--- OUTSIDE RECORDS SUMMARY | 2025-04-03 12:40 | XMS_ITS | Clinical Summary ---
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 Medtronic Card Vasc Surgery 06/17/2026 [id number] / / [id number] [employer] Device Vascular Closure Femoral Artery Bioabsorbable Dual Method Vascade 6-7fr Collagen [id number] - [id number] Implanted:Qty: 1 on 09/01/2023 by Hitesh Moreau MD at [facility] [employer] 03/10/2025 [id number] / / [id number] Medtronic Card Vasc Surgery 3.0 X 30mm Cole Crittenden Rx Coronary Stent [id number] - [id number] Implanted:Qty: 1 on 10/14/2023 by Hitesh Moreau MD at [facility] Medtronic Card Vasc Surgery 10/13/2025 [id number] / / [id number] Insurance [facility] Care Teams Hostel Parent Relationship Specialty Start Date End Date Jose Nolan MD PCP - General Family Practice 05/31/23
--- OUTSIDE RECORDS SUMMARY | 2025-04-03 12:40 | XMS_ITS | Clinical Summary ---
Author Organization [facility] Address [address] [place] [address] Care Team Providers Care Tetryl Blender Operator Name Role Phone Dale Saldaña MD Primary Care Provider [phone] Source Comments [facility],non-owned Affiliates and Associated Physician Practices is amultiple site organization consisting of ambulatory clinics and hospital sitesin [place], [place]. This disclosure is being madepursuant to the Care Everywhere program and may not contain all information available regarding this patient. Last updated 18.[facility] [place] Allergies Active Allergy Reactions Criticality Noted Date [...] Comments Blood Pressure 143/85 06/30/2023 3:13 PM LUBRICATION SERVICER Pulse 82 06/30/2023 3:13 PM LUBRICATION SERVICER Temperature 36.7 C (98.1 F) 06/30/2023 3:13 PM LUBRICATION SERVICER Respiratory Rate - - Oxygen Saturation 96% 06/30/2023 3:13 PM LUBRICATION SERVICER Inhaled Oxygen Concentration - - Weight 100.7 kg (222 lb) 06/30/2023 3:13 PM LUBRICATION SERVICER Height 180.3 cm (5' 11) 06/30/2023 3:13 PM LUBRICATION SERVICER Body Mass Index 30.96 06/30/2023 3:13 PM LUBRICATION SERVICER Plan of Treatment Health Maintenance Due Date Last Done Comments MEDICARE AWV 12 MONTHS 1940 DTAP/TDAP/TD VACCINES (1 - Tdap) 1960 PNEUMOCOCCAL VACCINE 50+ (1 of 1 - PCV) 1991 ZOSTER VACCINE (1 of 2) 1991 Respiratory Syncytial Virus (RSV) Vaccine Pt: or over 60 yrs (1 - 1-dose 75+ series) 2016 DEPRESSION SCREENING 05/16/2024 COVID-19 VACCINE (2024-2 6 season) 2025 INFLUENZA VACCINE (#1) 2025 HEPATITIS B VACCINE Aged Out No [...] Insurance ESSENCE MEDICARE ESSENCE MEDICARE Care Teams Tetryl Blender Operator Relationship Specialty Start Date End Date Dale Saldaña MD PCP - General 03/09/18
== END 2025-04-03 13:23 | disposition home or self-care (01) ==
PROVIDERS: Emergency Provider Emergency Medicine; PCP Nurse Practitioner Family
DX: S92.322A Displaced fracture of second metatarsal bone, left foot, initial encounter for closed fracture (principal); S92.332A Displaced fracture of third metatarsal bone, left foot, initial encounter for closed fracture; S92.342A Displaced fracture of fourth metatarsal bone, left foot, initial encounter for closed fracture; M25.461 Effusion, right knee; E11.22 Type 2 diabetes mellitus with diabetic chronic kidney disease; I12.9 Hypertensive chronic kidney disease with stage 1 through stage 4 chronic kidney disease, or unspecified chronic kidney disease; N18.30 Chronic kidney disease, stage 3 unspecified; I48.91 Unspecified atrial fibrillation; E78.2 Mixed hyperlipidemia; N40.0 Benign prostatic hyperplasia without lower urinary tract symptoms; J44.9 Chronic obstructive pulmonary disease, unspecified; G47.33 Obstructive sleep apnea (adult) (pediatric); G31.84 Mild cognitive impairment of uncertain or unknown etiology; Z66 Do not resuscitate; Z98.1 Arthrodesis status; Z87.891 Personal history of nicotine dependence; Z98.49 Cataract extraction status, unspecified eye; W18.39XA Other fall on same level, initial encounter; M11.261 Other chondrocalcinosis, right knee; M17.11 Unilateral primary osteoarthritis, right knee; I44.4 Left anterior fascicular block; Z79.01 Long term (current) use of anticoagulants; Z79.82 Long term (current) use of aspirin; Z79.84 Long term (current) use of oral hypoglycemic drugs; Z79.899 Other long term (current) drug therapy
CPT/HCPCS: 36415; 73521; 73562; 73620; 73700; 80053; 85025; 85610; 85730; 93005; 99284; A9270

== ENCOUNTER 2025-04-30 10:20 | Observation (INO) | payer OTHER, SELFPAY ==
[2025-04-30] VITALS (9 sets, daily range): BP systolic 131–149; BP diastolic 59–80; PULSE 55–78; RESP 13–19; TEMP 36.1–36.7; O2SAT 96–99; BMI 30.2
--- NOTE | ~2025-04-30 | XR_ITS ---
EXAMINATION: XR chest 2V DATE: 04/30/2025 10:54 INDICATION: Weakness TECHNIQUE: frontal and lateral views of the chest were obtained. COMPARISON: Chest radiograph dated 09/10/2024 FINDINGS: Mild opacities posteriorly at the bilateral lung bases, right greater than left. No pleural effusion or pneumothorax. Heart size is normal. Mild S-shaped curvature of the thoracic spine with mild spondylosis. Bilateral rotator cuff arthropathy. IMPRESSION: 1. Mild opacities at the posterior lung bases which could represent atelectasis, mild pulmonary edema, pneumonia or some combination thereof. Reviewed, dictated and finalized at location A. HER SPECIALIST IMPRESSION: 1. Mild opacities at the posterior lung bases which could represent atelectasis , mild pulmonary edema, pneumonia or some combination thereof.
--- NOTE | ~2025-04-30 | XR_ITS ---
Examination: XR knee LT 3V Clinical History: Left Knee Pain, NKI Comparison: None Technique: 3 views left knee Findings/impression: 1. No fracture, dislocation, or effusion left knee. 2. Mild tricompartmental degenerative changes, with chondrocalcinosis. 3. Peripheral arterial disease. Reviewed, dictated and finalized at location R. HEAD ROLLER
--- NOTE | ~2025-04-30 | XR_ITS ---
EXAMINATION: XR foot LT min 3V DATE: 04/30/2025 10:54 INDICATION: Fracture at the base of the second-fourth metatarsals TECHNIQUE: Dorsoplantar, two oblique and lateral views of the left foot were obtained. COMPARISON: CT and radiographs dated 04/03/2025 FINDINGS: Diffuse osteopenia. Old healed fracture deformity at the base of the fifth proximal phalanx. There is still readily discernible lucency along the minimally displaced fractures at the base of the second-fourth metatarsals. Minimally displaced fracture at the dorsal anterior process of the calcaneus. There is also subtle lucency along a nondisplaced fracture at the dorsal margin of the medial cuneiform. There is some sclerosis along the fracture margins and small amount is not definitively bridging callus formation along the third and fourth metatarsal fractures consistent with interval healing. Alignment throughout the left foot remains near-anatomic. 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 Moderate-sized plantar calcaneal spur. Tiny enthesopathic ossicle at the calcaneal insertion of the distal Achilles tendon. Mild soft tissue swelling over the dorsum of the forefoot. No ankle joint effusion. IMPRESSION: 1. Healing non to minimally displaced fractures at the anterior process of the calcaneus, the medial cuneiform and at the base of the second-fourth metatarsals. Reviewed, dictated and finalized at location A. NE INTERN IMPRESSION: 1. Healing non to minimally displaced fractures at the anterior process of the calcaneus, the medial cuneiform and at the base of the second-fourth metatarsal s.
--- NOTE | ~2025-04-30 | US_ITS ---
EXAMINATION: US venous doppler [facility], 04/30/2025 17:11 COMPUTER RECYCLING WORKER HISTORY: Calf Pain Comparison: None Technique: Lemon-scale and color Doppler images were attempted of the lower saphenofemoral junction, common femoral vein,superficial femoral vein, proximal deep femoral vein, proximal deep femoral vein, popliteal vein and posterior tibial veins. Findings: Deep Venous System:Normal flow, augmentation and compressibility. No echogenic thrombus identified. The contralateral saphenofemoral junction appears unremarkable. Superficial Venous SystemNo superficial thrombophlebitis. Soft tissues: Soft tissues are unremarkable. Impression: Negative for DVT. Reviewed, dictated and finalized at location P. UTER RECYCLING WORKER Impression: Negative for DVT.
--- NOTE | 2025-04-30 10:26 | ECG_ITS ---
Test Date: 2025-04-30 10:29:49 Measurements Intervals [place] Rate: 66 P: 0 VT: 0 QRS: -57 QRSD: 99 T: 21 QT: 403 QTc: 423 Interpretive Statements ATRIAL FIBRILLATION LEFT ANTERIOR FASCICULAR BLOCK ABNORMAL ECG Compared to ECG 04/03/2025 08:57:02 No significant changes Electronically Signed On 04-30-2025 11:30:03 ASBESTOS PIPE SUPERVISOR by Colby Noonan D.O.
[2025-04-30 10:52] LABS: Hematocrit 45.0 % (42.0-52.0); Hemoglobin 14.3 g/dL (14.0-18.0); Immature Granulocyte Percent A 0.6 % (0-0.5); Lymphocytes Absolute Auto 2.71 K/mm3 (0.9-3.2); Mean Corpuscular HGB Conc 31.8 g/dl (32-36); Mean Corpuscular Hemoglobin 30.6 pg (26-34); Mean Corpuscular Volume 96.4 fl (80-100); Nucleated Red Blood Cells Absolute Auto 0.000 K/mm3 (0.0-0.012); Nucleated Red Blood Cells Perc 0.0 % (0.0-0.2); Platelet Count Result 220 k/mm3 (150-375); Red Blood Count 4.67 M/mm3 (4.6-6.20); White Blood Count 10.4 K/mm3 (4.5-10.0)
[2025-04-30 11:07] LABS: Alanine Aminotransferase 17 U/L (6-50); Albumin Level 3.5 g/dL (3.5-5.1); Alkaline Phosphatase 47 U/L (38-126); Anion Gap 5 mmol/L (4-12); Aspartate Amino Transferase 23 U/L (17-59); Bilirubin,Total 0.6 mg/dL (0.2-1.3); Blood Urea Nitrogen 27 mg/dL (9-20); Calcium 9.0 mg/dL (8.4-10.2); Carbon Dioxide 29 mmol/L (22-30); Chloride 104 mmol/L (98-107); Estimated CRCL calculation 55 ml/min; Estimated Glomerular Filt Rate > 60; Glucose 115 mg/dL (65-110); Potassium 4.4 mmol/L (3.4-5.0); Sodium 138 mmol/L (137-145); Total Protein 6.5 g/dL (6.3-8.2)
--- NOTE | 2025-04-30 11:55 | PC.NURSE ---
Pt still unable to void at this time, refusing straight cath
--- NOTE | 2025-04-30 12:30 | PC.NURSE ---
Pt states still unable to urinate at this time
[2025-04-30 13:06] LABS: Add Urine Microscopic? YES; Appearance Urine Clear (Clear); Glucose Urine UA Negative (Negative); Leukocyte Esterase Ur Trace LEU/UL (Negative); Nitrate Urine Negative (Negative); Non Pathogenic Casts 0-2; Specific Grav Ur 1.016 (1.001-1.035)
--- NOTE | 2025-04-30 13:07 | WPCEDHO ---
ED Hand Off Checklist All vitals saved:y IV Site documented:y All med administrations documented:y Triage Note Triage Note Pt to ED from home via [place] 04/30/25 10:04 [facility] generalized weakness for 1 month and pain to L foot. Pt fractured his foot 1 month ago reports his pain is worse when bearing weight. Pt also endorses pain/burning with urination. Pt A &Ox4 on arrival. hx Afib, COPD, CHF, HTN Allergies Opioids - Morphine Analogues Adverse Reaction (Intermediate, Verified 04/30/25 10:26) Nausea and Vomiting Family History (Last Reviewed 03/21/25 @ 13:01 by Yanely Bermudez MA) Sibling Patient's sister is in good health Patient's brother is in good health Father Heart disease Acute myocardial infarction Telangiectasia Dxfuc-Hcqnk-Mbmef disease Angiodysplasia AVM (arteriovenous malformation) Mother Acute myocardial infarction Notes 04/30/25 12:30 Nurse Note by Ernestine Baptiste Pt states still unable to urinate at this time Initialized on 04/30/25 12:30 - END OF NOTE 04/30/25 11:55 Nurse Note by Ernestine Baptiste. Pt still unable to void at this time, refusing straight cath Initialized on 04/30/25 11:55 - END OF NOTE Interventions/Assessments Cardiac Monitoring Start: 04/30/25 09:58 Freq: Status: Active Protocol: Document 04/30/25 10:33 KED (Rec: 04/30/25 10:33 KED [id number]) Assessment Clinician Assessment Assessment Clinician Yes Applied Pulse Rate (60-100 67 beats/min) EKG Rythm Atrial Fibrillation IV / Saline Lock, Insert Start: 04/30/25 09:58 Freq: Status: Active Protocol: Document 04/30/25 10:22 KED (Rec: 04/30/25 10:23 KED [id number]) IV Assessment Peripheral Access Right Antecubital IV Catheter Access Initiated IV Insertion Date 04/30/25 IV Insertion Time 10:23 Catheter Gauge 20 IV Insertion 1 Attempts Ultrasound Used for No Placement IV Site Assessment WNL IV Care and WNL Maintenance PA: Cardiovascular Assessment Start: 04/30/25 09:58 Freq: Status: Active Protocol: Document 04/30/25 10:22 KED (Rec: 04/30/25 10:23 [facility] [id number]) Cardiovascular Assessment Cardiovascular Lightheadedness Symptoms PA: Neurological Assessment Start: 04/30/25 09:58 Freq: Status: Active Protocol: Document 04/30/25 10:22 KEMelissa (Rec: 04/30/25 10:23 [facility] [id number]) Neurological Assessment Level of Alert,Awake Consciousness Arousable to Verbal Orientation Oriented to Person,Oriented to Place,Oriented to Time Neurological Weakness, General Symptoms Hallucination Type None Unable to Redirect No Behavior Behavior Appropriate,Cooperative Patient Able to Comprehend Comprehension Memory Description Intact [place] Coma Scale Eyes Open Verbal Oriented and Alert Motor Follows Commands [place] Coma Total 15 Score Last Vital Signs Temperature 98 F 04/30/25 12:29 Pulse Rate 55 L 04/30/25 13:06 Respiratory Rate 14 04/30/25 13:06 Pulse Oximetry 96 04/30/25 13:06 Blood Pressure 134/67 04/30/25 13:06 Blood Pressure Mean 89 04/30/25 13:06 Blood Pressure Position Sitting 04/30/25 13:06 Oxygen Delivery Room Air 04/30/25 10:04 Weight 98.5 kg 04/30/25 10:04 Last Result - Abnormals Only WBC 10.4 K/mm3 (4.5-10.0) H 04/30/25 10:38 MCHC 31.8 g/dl (32-36) L 04/30/25 10:38 RDW 15.7 % (11.5-14.5) H 04/30/25 10:38 Immature Gran % (Auto) 0.6 % (0-0.5) H 04/30/25 10:38 [place] # (Auto) 0.7 K/mm3 (0.1-0.6) H 04/30/25 10:38 Eos # (Auto) 0.4 K/mm3 (0-0.3) H 04/30/25 10:38 Abs Immat Gran (auto) 0.06 K/mm3 (0.00-0.031) H 04/30/25 10:38 BUN 27 mg/dL (9-20) H 04/30/25 10:38 Glucose 115 mg/dL (65-110) H 04/30/25 10:38 Most Recent Suicide Severity Rating Suicide Severity Rating NO RISK INDICATED 04/30/25 10:04
--- OUTSIDE RECORDS SUMMARY | 2025-04-30 13:32 | XMS_ITS | Clinical Summary ---
Author Organization [facility] Address [address] [place] [address] Care Team Providers Care Noodle Maker Name Role Phone Dale Saldaña MD Primary Care Provider [phone] Source Comments [facility],non-owned Affiliates and Associated Physician Practices is amultiple site organization consisting of ambulatory clinics and hospital sitesin [place], [place], [place] and [place]. This disclosure is being madepursuant to the Care Everywhere program and may not contain all information available regarding this patient. Last updated 18.[facility] Cap That Allergies Active Allergy Reactions Criticality Noted Date [...] Comments Blood Pressure 143/85 06/30/2023 3:13 PM ICING MAKER Pulse 82 06/30/2023 3:13 PM ICING MAKER Temperature 36.7 C (98.1 F) 06/30/2023 3:13 PM ICING MAKER Respiratory Rate - - Oxygen Saturation 96% 06/30/2023 3:13 PM ICING MAKER Inhaled Oxygen Concentration - - Weight 100.7 kg (222 lb) 06/30/2023 3:13 PM ICING MAKER Height 180.3 cm (5' 11) 06/30/2023 3:13 PM ICING MAKER Body Mass Index 30.96 06/30/2023 3:13 PM ICING MAKER Plan of Treatment Health Maintenance Due Date [...] Insurance [employer] MED[employer]ARE E[employer]ENCE MED[employer]ARE Care Teams Noodle Maker Relationship Specialty Start Date End Date Dale Saldaña MD PCP - General 03/09/18
--- OUTSIDE RECORDS SUMMARY | 2025-04-30 13:32 | XMS_ITS | Clinical Summary ---
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 Gender Identity Not on file Sexual Orientation [...] 10/05/2022, 01/22/2022 Medical Devices Implanted Type Area Flat Bed Knitter Device Identifier Shelf Expiration Date Model / Serial / Lot Medtronic Card Vasc Surgery 2.50 X 34mm [place] [facility] Coronary Stent [id number] - [id number] Implanted:Qty: 1 on 09/01/2023 by Hitesh Moreau MD at [facility] Medtronic Card Vasc Surgery 06/17/2026 [id number] / / [id number] [employer] Device Vascular Closure Femoral Artery Bioabsorbable Dual Method Vascade 6-7fr Collagen [id number] - [id number] Implanted:Qty: 1 on 09/01/2023 by Hitesh Moreau MD at [facility] [employer] 03/10/2025 [id number] / / [id number] Medtronic Card Vasc Surgery 3.0 X 30mm [place] Rx Coronary Stent [id number] - [id number] Implanted:Qty: 1 on 10/14/2023 by Hitesh Moreau MD at [facility] Medtronic Card Vasc Surgery 10/13/2025 [id number] / / [id number] Insurance [facility] Care Teams Visual C Developer Relationship Specialty Start Date End Date Jose Nolan MD PCP - General Family Practice 05/31/23
--- NOTE | 2025-04-30 13:35 | ADMGEN ---
This patient, Christian Villa I, was admitted to 3 [facility] Surg Room 312-01. Patient/family oriented to hospital policies and general routines including ID bracelet, bed and alarms, visiting hours, pain management, procedures, bathroom and other care routines, personal items, smoking policy, room service/diet, and visiting hours. Information on how to activate the Rapid Response Team has been discussed. Patient/Family are encouraged to report perceived risks to care and to ask questions if they do not understand what they are told or what they should do.
--- NOTE | 2025-04-30 13:41 | PM.IMHP2 ---
H&P: HPI History of Present Illness Date/Time: 04/30/25 13:41 Chief Complaint: Weakness Narrative: 84-year-old male with past medical history of diabetes, frequent falls, CKD, ANEUDY, AFib, hypertension, hyperlipidemia presents to the ED on 04/30/2025 with complaints of generalized weakness. Patient was diagnosed with minimally displaced fractures to the left 2nd 3rd and 4th metatarsal bones on 04/03/25. This was nonoperable and patient was sent home with a post op shoe. Patient was referred to Podiatry for follow-up but has not gone to an appointment because he has stairs in his apartment. He has reportedly been attempting to work with home health care but has been getting progressively weaker. He was also noted to have a healing 5th proximal phalanx fracture which was originally noted on 02/05 in the ED as well. Patient presents today for re-evaluation stating he has been chair bound since his most recent fracture. Patient also complains of burning with urination. Initial vital signs 149/80, HR 78, respirations 15, afebrile and 98% on room air. Mild leukocytosis with WBC 10.4, BUN 27, UA without signs of infection. EKG with AFib with rate 66 Chest x-ray mild opacities at posterior lung bases, representing atelectasis, mild pulmonary edema, pneumonia or possible combination. Left foot x-ray reads healing non to minimally displaced fractures at the anterior process of the calcaneus, the medial cuneiform and at the base of the second-fourth metatarsals. LLE doppler negative for DVT Review of Systems Review of Systems: All systems reviewed & are unremarkable except as noted in HPI and below [facility] Past Medical History Medical History Hip pain, left Frequent falls Unable to ambulate Acute postoperative pain Hematoma Fall Left shoulder pain Infarction of right basal ganglia Confusion Chronic kidney disease, stage 3 Chronic anticoagulation Cerebral cavernoma Obstructive sleep apnea intolerant to CPAP Lumbosacral stenosis with neurogenic claudication with epidural steroid injection L4-L5 December 2022 Mild cognitive impairment COPD with asthma Lumbosacral radiculopathy Claudication of both lower extremities Postlaminectomy syndrome Lumbosacral spondylosis Long COVID Atrial fibrillation Benign non-nodular prostatic hyperplasia without lower urinary tract symptoms Essential hypertension 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 Surgical History Surgical History History of lumbar discectomy (08/2024) minimally invasive at L3-L4 and L4-L5 History of lumbar fusion History of cardiac catheterization (03/2023) multivessel coronary disease to 80% stenosis of the proximal LAD 70% stenosis midportion of LAD very small diagonal branch, proximal and mid left circ have luminal irregularities 90% long stenosis left circumflex, small caliber obtuse marginal branch with mild diffuse disease obtuse marginal 2 has a moderate stenosis of the midportion right coronary artery is dominant vessel with 90% stenosis of the midportion and mid RPDA has 2 tandem stenosis is of 60-70% the patient was referred for CV surgery however the patient then underwent staged procedure at [facility] with PCI and stent to mid distal left circ and in September 2023 he had a PCI to the mid RCA History of cataract surgery Family History Family History Sibling Patient's sister is in good health Patient's brother is in good health Father Heart disease Acute myocardial infarction Telangiectasia Fkxyz-Aocus-Dgccz disease Angiodysplasia AVM (arteriovenous malformation) Mother Acute myocardial infarction Social History Social History Social History: Surrogate medical decision maker: Genoveva Villa, spouse. Code status: DO NOT RESUSCITATE. Smoking packs per day: 0.5 Smoking cigarettes per day: 10.0 Years smoked: 2 Smoking pack-years: 1.00 Smoking status: Former smoker Second hand tobacco smoke exposure: No Additional smoking assessment comments: quit smoking in his 30s Alcohol intake: never Substance use: never Substance use type: does not use Lack of Transportation: No Lack of Food: Never True Current Housing: I Have Housing Concerned About Future Housing: No Difficulty Paying Gas/Electric Bills: No Difficulty Paying for Meds: No Currently Unemployed: No Education: High School Diploma/GED Difficulty w/ Childcare or Family Care: No Living arrangements: with family Additional living arrangements comments: Lives with in [place]. 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 Spiritual care concerns: No Meds Home Medications and Allergies Home Medications ?Medication ?Instructions ?Recorded ?Confirmed ?Type lancets (Lancets, Super Thin) #100 ea 01/30/20 03/22/25 Rx blood sugar diagnostic (Contour #100 ea 03/19/20 03/22/25 Rx Next Test Strips) multivit with minerals-iron 18 1 tablet PO DAILY 12/10/21 04/30/25 History mg-folic ac 400 mcg-vit K 25 mcg tablet (Adults Multivitamin) atorvastatin 40 mg tablet 40 mg PO QPM 10/21/23 04/30/25 History finasteride 5 mg tablet See Rx Instructions .Route 01/02/24 04/30/25 Rx .COMPLEX #90 tabs aspirin 81 mg tablet,delayed 81 mg PO QAM 30 days #30 tabs 09/13/24 04/30/25 Rx release metformin 1,000 mg tablet 1,000 mg PO DAILY #180 tabs 11/22/24 04/30/25 Rx fluticasone 250 mcg-salmeterol 50 See Rx Instructions .Route 12/17/24 04/30/25 Rx mcg/dose blistr powdr for .COMPLEX #180 ea inhalation (Wixela Inhub) diltiazem HCl 180 mg See Rx Instructions .Route 01/02/25 04/30/25 Rx capsule,extended release 24 hr .COMPLEX #90 caps hydrocodone 5 mg-acetaminophen 325 1 tablet PO Q6H PRN pain #14 tabs 04/03/25 04/30/25 Rx mg tablet ondansetron 4 mg disintegrating 4 mg PO Q8H PRN nausea and 04/03/25 04/30/25 Rx tablet vomiting #14 tabs oxybutynin chloride 15 mg 15 mg PO HS #90 tabs 04/04/25 04/30/25 Rx tablet,extended release 24 hr ferrous sulfate 325 mg (65 mg See Rx Instructions .Route 04/19/25 04/30/25 Rx iron) tablet .COMPLEX #90 tabs rivaroxaban 20 mg tablet (Xarelto) See Rx Instructions .Route 04/29/25 04/30/25 Rx .COMPLEX #90 tabs Allergies Allergy/AdvReac Type Severity Reaction Status Date / Time Opioids - Morphine Analogues AdvReac Intermediate Nausea and Verified 04/30/25 13:41 Vomiting Vital Signs Vital Signs - 24 hr 04/30/25 10:04 04/30/25 10:33 04/30/25 10:33 Temperature 98.1 F Pulse Rate 78 67 66 Respiratory Rate 15 19 Blood Pressure 149/80 H 137/63 Pulse Oximetry 98 99 Oxygen Delivery Room Air 04/30/25 11:46 04/30/25 12:29 04/30/25 13:06 Temperature 98 F Pulse Rate 73 71 55 L Respiratory Rate 13 19 14 Blood Pressure 131/67 134/70 134/67 Pulse Oximetry 98 98 96 Oxygen Delivery Exam Narrative: GENERAL: non-toxic appearing, in no acute distress. HEAD: Normocephalic, atraumatic. EYES: PERRLA. Conjunctivae clear. NOSE: Normal no drainage. THROAT: Pharynx clear, no exudate. NECK: Trachea midline. No adenopathy, no masses. RESPIRATORY: Airway patent, respirations nonlabored. CTA. CARDIOVASCULAR: Irregular rate and rhythm GASTROINTESTINAL: Abdomen is soft and nontender. No organomegaly. Bowel sounds normal in all quadrants. GENITOURINARY: Defer MUSCULOSKELETAL: Moves all extremities. No gross deformities. Pain with manipulation to the left foot. SKIN: Warm, dry, normal color. Scattered ecchymosis NEURO: A&O X4. Speech clear PSYCHIATRIC: Normal interaction Results Labs Labs: Short CBC 04/30/25 Range/Units 10:38 WBC 10.4 H (4.5-10.0) K/mm3 Hgb 14.3 (14.0-18.0) g/dL Hct 45.0 (42.0-52.0) % Plt Count 220 (150-375) k/mm3 [facility] 04/30/25 10:38 Sodium 138 Potassium 4.4 Chloride 104 Carbon Dioxide 29 BUN 27 H Creatinine 1.08 Glucose 115 H Calcium 9.0 Liver Function 04/30/25 Range/Units 10:38 Total Bilirubin 0.6 (0.2-1.3) mg/dL AST 23 (17-59) U/L ALT 17 (6-50) U/L Alkaline Phosphatase 47 (38-126) U/L Albumin 3.5 (3.5-5.1) g/dL Urine 04/30/25 Range/Units 12:42 Urine Color Yellow (Yellow) Urine Appearance Clear (Clear) Urine pH 7.5 (5.0-9.0) Ur Specific [place] 1.016 (1.001-1.035) Urine Protein Negative (Negative) mg/dL Urine Glucose (UA) Negative (Negative) mg/dL Quality VTE Prophylaxis VTE prophylaxis: pharmacologic ordered Assessment and Plan Assessment and plan (1) Foot fracture: Qualifiers: Encounter type: subsequent encounter Fracture healing: with routine healing Fracture type: closed Laterality: left Qualified Code(s): S92.902D - Unspecified fracture of left foot, subsequent encounter for fracture with routine healing Code(s): S92.909A - Unspecified fracture of unspecified foot, initial encounter for closed fracture Status: Acute Assessment and Plan: Patient was diagnosed with minimally displaced fractures to the left 2nd 3rd and 4th metatarsal bones on 04/03/25. Patient presents today for re-evaluation stating he has been chair bound since his most recent fracture. Left foot x-ray reads healing non to minimally displaced fractures at the anterior process of the calcaneus, the medial cuneiform and at the base of the second-fourth metatarsals. -Orthopedic surgery consult; no surgical intervention -fracture boot and PT/OT -will likely require rehab as he has been nonambulatory -ice and elevation -hydrocodone p.r.n. -medicate prior to PT/OT eval (2) Type 2 diabetes mellitus: Qualifiers: Diabetes mellitus complication status: without complication Diabetes mellitus keno terminal operator insulin use: without residential use Qualified Code(s): E11.9 - Type 2 diabetes mellitus without complications Code(s): E11.9 - Type 2 diabetes mellitus without complications Status: Chronic Assessment and Plan: - hypoglycemia protocol - POC blood glucose ACHS - home medication: Metformin - correct regimen ordered: Low-dose sliding scale (3) Essential hypertension: Code(s): I10 - Essential (primary) hypertension Status: Chronic Assessment and Plan: Continue diltiazem (4) Hyperlipidemia: Qualifiers: Hyperlipidemia type: unspecified Qualified Code(s): E78.5 - Hyperlipidemia, unspecified Code(s): E78.5 - Hyperlipidemia, unspecified Status: Chronic Assessment and Plan: Continue Lipitor (5) Atrial fibrillation: Qualifiers: Atrial fibrillation type: unspecified Qualified Code(s): I48.91 - Unspecified atrial fibrillation Code(s): I48.91 - Unspecified atrial fibrillation Status: Chronic Assessment and Plan: Continue Xarelto Plan Diet: Consistent carb lines/drains: PIV Fluids: NA Code status: DNR Prior Studies I have reviewed the following patient records and this information was taken into consideration when formulating the assessment and plan.: previous labs, previous ER visits, previous hospitalizations and previous clinic visits Time Spent with Patient Time with patient: 45 - 74 minutes Hospitalist MIPS Advance Care Plan I have confirmed that the patient's Advanced Care Plan is present, code status is documented, or surrogate decision maker is listed in patient medical record.: Yes Medication Reconciliation I have utilized all available resources to obtain, update and review the patients current medications (includes all prescriptions, OTC, herbals, cannabis, and nutritional supplements).: Yes
--- NOTE | 2025-04-30 14:41 | ED.WEAKNESS ---
HPI - Weakness General Chief complaint: Weakness Stated complaint: weakness Time Seen by Provider: 04/30/25 10:28 History of Present Illness HPI Narrative: Patient presenting here after he had a foot fracture a month ago, was supposed to follow-up with Podiatry but was unable to go to the appointment since he has stairs in his apartment. Has been trying to work with home health care but has been getting progressively weaker Related Data Home Medications ?Medication ?Instructions ?Recorded ?Confirmed ?Last Taken ?Type multivit with minerals-iron 18 1 tablet PO DAILY 12/10/21 04/30/25 04/29/25 History mg-folic ac 400 mcg-vit K 25 mcg tablet (Adults Multivitamin) atorvastatin 40 mg tablet 40 mg PO QPM 10/21/23 04/30/25 04/29/25 History Allergies Allergy/AdvReac Type Severity Reaction Status Date / Time Opioids - Morphine Analogues AdvReac Intermediate Nausea and Verified 04/30/25 13:41 Vomiting Review of Systems Review of Systems: All systems reviewed & are unremarkable except as noted in HPI and below PMFSH Past Medical History Medical History Hip pain, left Frequent falls Unable to ambulate Acute postoperative pain Hematoma Fall Left shoulder pain Infarction of right basal ganglia Confusion Chronic kidney disease, stage 3 Chronic anticoagulation Cerebral cavernoma Obstructive sleep apnea intolerant to CPAP Lumbosacral stenosis with neurogenic claudication with epidural steroid injection L4-L5 December 2022 Mild cognitive impairment COPD with asthma Lumbosacral radiculopathy Claudication of both lower extremities Postlaminectomy syndrome Lumbosacral spondylosis Long COVID Atrial fibrillation Benign non-nodular prostatic hyperplasia without lower urinary tract symptoms Essential hypertension 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 Surgical History Surgical History History of lumbar discectomy (08/2024) minimally invasive at L3-L4 and L4-L5 History of lumbar fusion History of cardiac catheterization (03/2023) multivessel coronary disease to 80% stenosis of the proximal LAD 70% stenosis midportion of LAD very small diagonal branch, proximal and mid left circ have luminal irregularities 90% long stenosis left circumflex, small caliber obtuse marginal branch with mild diffuse disease obtuse marginal 2 has a moderate stenosis of the midportion right coronary artery is dominant vessel with 90% stenosis of the midportion and mid RPDA has 2 tandem stenosis is of 60-70% the patient was referred for CV surgery however the patient then underwent staged procedure at [facility] with PCI and stent to mid distal left circ and in September 2023 he had a PCI to the mid RCA History of cataract surgery Family History Family History Sibling Patient's sister is in good health Patient's brother is in good health Father Heart disease Acute myocardial infarction Telangiectasia Fxacv-Ycdcq-Nqdmf disease Angiodysplasia AVM (arteriovenous malformation) Mother Acute myocardial infarction Social History Social History Social History: Surrogate medical decision maker: Genoveva Villa, spouse. Code status: DO NOT RESUSCITATE. Smoking packs per day: 0.5 Smoking cigarettes per day: 10.0 Years smoked: 2 Smoking pack-years: 1.00 Smoking status: Former smoker Second hand tobacco smoke exposure: No Additional smoking assessment comments: quit smoking in his 30s Alcohol intake: never Substance use: never Substance use type: does not use Lack of Transportation: No Lack of Food: Never True Current Housing: I Have Housing Concerned About Future Housing: No Difficulty Paying Gas/Electric Bills: No Difficulty Paying for Meds: No Currently Unemployed: No Education: High School Diploma/GED Difficulty w/ Childcare or Family Care: No Living arrangements: with family Additional living arrangements comments: Lives with in [place]. 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 Spiritual care concerns: No Exam Narrative: EXAMINATION OF ORGAN SYSTEMS/BODY AREAS: Constitutional: Vital signs per nursing GENERAL:No acute distress, non-toxic appearing. HEAD: Normal with no signs of head trauma. EYES: EOMI, conjunctiva normal ENT: Hearing grossly intact LUNGS: Nonlabored breathing. HEART: Regular rate and rhythm, normal DP pulse ABD: Soft, nontender to palpation EXT: Normal range of motion, some slight tenderness to the left foot SKIN: No rashes or lesions. NEURO: Alert. No gross focal sensory or strength deficits. PSYCH: Normal affect Course Vital Signs Vital signs: Vital Signs Temperature 98.1 F 04/30/25 10:04 Pulse Rate 78 04/30/25 10:04 Respiratory Rate 15 04/30/25 10:04 Blood Pressure 149/80 H 04/30/25 10:04 Pulse Oximetry 98 04/30/25 10:04 Oxygen Delivery Room Air 04/30/25 10:04 Temperature 97.5 F L 04/30/25 14:00 Pulse Rate 70 04/30/25 14:00 Respiratory Rate 14 04/30/25 14:00 Blood Pressure 133/64 04/30/25 14:00 Pulse Oximetry 98 04/30/25 14:00 Oxygen Delivery Room Air 04/30/25 13:50 MDM MDM Narrative Medical decision making narrative: 84-year-old male was found a fracture about a month ago but was unable to follow-up with a dry mill operator presents here what to do about his foot. Repeat x-ray here shows well-healing fracture, I discussed this with orthopedist, who agrees physical be non operative, but can admit patient for rehab as he is unable to get around at home after I discussed this with him and his . Discussed with hospitalist for admission Differential Diagnosis Differential Diagnosis: Fracture, physical debility, electrolyte abnormality, etc Lab Data 04/30/25 10:38 04/30/25 10:38 Labs: Lab Results 04/30/25 Range/Units 10:38 WBC 10.4 H (4.5-10.0) K/mm3 RBC 4.67 (4.6-6.20) M/mm3 Hgb 14.3 (14.0-18.0) g/dL Hct 45.0 (42.0-52.0) % MCV 96.4 (80-100) fl MCH 30.6 (26-34) pg MCHC 31.8 L (32-36) g/dl RDW 15.7 H (11.5-14.5) % Plt Count 220 (150-375) k/mm3 MPV 9.6 (7.4-10.4) fl Immature Gran % (Auto) 0.6 H (0-0.5) % Neut % (Auto) 62.2 (45.5-73.1) % Lymph % (Auto) 26.0 (18.3-44.2) % [place] % (Auto) 6.9 (2.6-8.5) % Eos % (Auto) 3.9 (0-4.4) % Baso % (Auto) 0.4 (0.2-1.2) % Lymph # (Auto) 2.71 (0.9-3.2) K/mm3 [place] # (Auto) 0.7 H (0.1-0.6) K/mm3 Eos # (Auto) 0.4 H (0-0.3) K/mm3 Baso # (Auto) 0.0 (0.0-0.1) K/mm3 Abs Immat Gran (auto) 0.06 H (0.00-0.031) K/mm3 Absolute Neuts (auto) 6.5 (1.3-6.7) K/mm3 Absolute Nucleated RBC 0.000 (0.0-0.012) K/mm3 Nucleated RBC % 0.0 (0.0-0.2) % Sodium 138 (137-145) mmol/L Potassium 4.4 (3.4-5.0) mmol/L Chloride 104 (98-107) mmol/L Carbon Dioxide 29 (22-30) mmol/L Anion Gap 5 (4-12) mmol/L BUN 27 H (9-20) mg/dL Creatinine 1.08 (0.7-1.3) mg/dL Estim Creat Clear Calc 55 ml/min Estimated GFR > 60 (59 - ) Glucose 115 H (65-110) mg/dL Calcium 9.0 (8.4-10.2) mg/dL Total Bilirubin 0.6 (0.2-1.3) mg/dL AST 23 (17-59) U/L ALT 17 (6-50) U/L Alkaline Phosphatase 47 (38-126) U/L Total Protein 6.5 (6.3-8.2) g/dL Albumin 3.5 (3.5-5.1) g/dL Imaging Data Radiologist's impression: ITS Impressions Chest X-Ray 04/30/25 10:59 IMPRESSION: 1. Mild opacities at the posterior lung bases which could represent atelectasis, mild pulmonary edema, pneumonia or some combination thereof. Foot X-Ray 04/30/25 11:01 IMPRESSION: 1. Healing non to minimally displaced fractures at the anterior process of the calcaneus, the medial cuneiform and at the base of the second-fourth metatarsals. Discharge Plan Discharge Clinical Impression: Foot fracture Patient Disposition: Home Condition: Stable
--- NOTE | 2025-04-30 16:00 | PM.CNOR ---
Assessment and Plan Assessment and plan (1) At moderate risk for fall: Code(s): Z91.81 - History of falling Status: Acute (2) Atrial fibrillation: Qualifiers: Atrial fibrillation type: unspecified Qualified Code(s): I48.91 - Unspecified atrial fibrillation Code(s): I48.91 - Unspecified atrial fibrillation Status: Chronic (3) Type 2 diabetes mellitus: Qualifiers: Diabetes mellitus fdc insulin use: without fdc use Diabetes mellitus complication status: without complication Qualified Code(s): E11.9 - Type 2 diabetes mellitus without complications Code(s): E11.9 - Type 2 diabetes mellitus without complications Status: Chronic (4) Foot fracture: Qualifiers: Encounter type: sequela Fracture type: closed Laterality: left Qualified Code(s): S92.902S - Unspecified fracture of left foot, sequela Code(s): S92.909A - Unspecified fracture of unspecified foot, initial encounter for closed fracture Status: Acute Assessment and Plan: History, exam, radiographs reviewed with the patient. Radiographs from emergency room visit on 04/03 reviewed as well as new radiographs which reveal healing non to minimally displaced fractures at the anterior process of the calcaneus, the medial cuneiform and at the base of the second-fourth metatarsals. The fracture type and injury as well as radiographs discussed with the patient. Operative and nonoperative treatment options reviewed. Recommended non operative treatment. Risk of nonunion, malunion or late displacement discussed. Stiffness, pain and possible dysfunction of the joint discussed. Fracture precautions and activity restrictions reviewed. The patient verbalizes understanding. Patient has been nonambulatory since the time of his injury without any follow-up. He was not discharged with DME. He has not followed with his primary care provider and has not been seen by the auto brake technician for which he was referred. He has significant left calf pain on exam. Recommend Doppler of the left lower extremity. Recommend patient be fit with a fracture boot and PT OT for weight-bearing. Patient will likely require LAURIE given he has been nonambulatory for 4 weeks at home. Pain control. Ice. Elevation. We will continue to monitor. Plan Reviewed history, exam, radiographs and current labs with attending MD and covering surgeon, Dr. Martel, who agrees with current plan as indicated above. No further recommendations from Dr. Martel at this time. History of Present Illness HPI Consult date: 04/30/25 Chief complaint: Ft Fx 1mo Ago/Now Debilitated Narrative: 84-year-old male who presented to the emergency room on April 03 with a left foot injury which revealed a minimal to nondisplaced fracture in the proximal 2nd and 3rd metatarsal bones with he 2nd metatarsal fracture with possible extension into the tarsometatarsal articulation. A possible Lisfranc injury was considered at that time. He was also noted to have a healing 5th proximal phalanx fracture which was originally noted on 02/05 in the emergency room as well. He was to follow up with both his primary care provider and Dr. Patel. Per the patient, he was discharged home. He was transported home via ambulance. He has been home since that time, nonambulatory, in a chair. He has subsequently deconditioned and is experiencing generalized weakness. He return to the emergency room today for re-evaluation. New radiographs reveal healing non to minimally displaced fractures at the anterior process of the calcaneus, the medial cuneiform and at the base of the second-fourth metatarsals. The patient was admitted for generalized weakness, foot fracture and ECG revealed Afib. Orthopedic consult requested for recommendations regarding his left foot. Review of Systems Review of Systems: All systems reviewed & are unremarkable except as noted in HPI and below PMFSH Past Medical History Medical History Hip pain, left Frequent falls Unable to ambulate Acute postoperative pain Hematoma Fall Left shoulder pain Infarction of right basal ganglia Confusion Chronic kidney disease, stage 3 Chronic anticoagulation Cerebral cavernoma Obstructive sleep apnea intolerant to CPAP Lumbosacral stenosis with neurogenic claudication with epidural steroid injection L4-L5 December 2022 Mild cognitive impairment COPD with asthma Lumbosacral radiculopathy Claudication of both lower extremities Postlaminectomy syndrome Lumbosacral spondylosis Long COVID Atrial fibrillation Benign non-nodular prostatic hyperplasia without lower urinary tract symptoms Essential hypertension 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 Surgical History Surgical History History of lumbar discectomy (08/2024) minimally invasive at L3-L4 and L4-L5 History of lumbar fusion History of cardiac catheterization (03/2023) multivessel coronary disease to 80% stenosis of the proximal LAD 70% stenosis midportion of LAD very small diagonal branch, proximal and mid left circ have luminal irregularities 90% long stenosis left circumflex, small caliber obtuse marginal branch with mild diffuse disease obtuse marginal 2 has a moderate stenosis of the midportion right coronary artery is dominant vessel with 90% stenosis of the midportion and mid RPDA has 2 tandem stenosis is of 60-70% the patient was referred for CV surgery however the patient then underwent staged procedure at [facility] with PCI and stent to mid distal left circ and in September 2023 he had a PCI to the mid RCA History of cataract surgery Family History Family History Sibling Patient's sister is in good health Patient's brother is in good health Father Heart disease Acute myocardial infarction Telangiectasia Jauxg-Vfkok-Xcuzp disease Angiodysplasia AVM (arteriovenous malformation) Mother Acute myocardial infarction Social History Social History Social History: Surrogate medical decision maker: Genoveva Villa, spouse. Code status: DO NOT RESUSCITATE. Smoking packs per day: 0.5 Smoking cigarettes per day: 10.0 Years smoked: 2 Smoking pack-years: 1.00 Smoking status: Former smoker Second hand tobacco smoke exposure: No Additional smoking assessment comments: quit smoking in his 30s Alcohol intake: never Substance use: never Substance use type: does not use Lack of Transportation: No Lack of Food: Never True Current Housing: I Have Housing Concerned About Future Housing: No Difficulty Paying Gas/Electric Bills: No Difficulty Paying for Meds: No Currently Unemployed: No Education: High School Diploma/GED Difficulty w/ Childcare or Family Care: No Living arrangements: with family Additional living arrangements comments: Lives with in [place]. 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 care concerns: No Meds Home Medications and Allergies Home Medications ?Medication ?Instructions ?Recorded ?Confirmed ?Type lancets (Lancets, Super Thin) #100 ea 01/30/20 03/22/25 Rx blood sugar diagnostic (Contour #100 ea 03/19/20 03/22/25 Rx Next Test Strips) multivit with minerals-iron 18 1 tablet PO DAILY 12/10/21 04/30/25 History mg-folic ac 400 mcg-vit K 25 mcg tablet (Adults Multivitamin) atorvastatin 40 mg tablet 40 mg PO QPM 10/21/23 04/30/25 History finasteride 5 mg tablet See Rx Instructions .Route 01/02/24 04/30/25 Rx .COMPLEX #90 tabs aspirin 81 mg tablet,delayed 81 mg PO QAM 30 days #30 tabs 09/13/24 04/30/25 Rx release metformin 1,000 mg tablet 1,000 mg PO DAILY #180 tabs 11/22/24 04/30/25 Rx fluticasone 250 mcg-salmeterol 50 See Rx Instructions .Route 12/17/24 04/30/25 Rx mcg/dose blistr powdr for .COMPLEX #180 ea inhalation (Wixela Inhub) diltiazem HCl 180 mg See Rx Instructions .Route 01/02/25 04/30/25 Rx capsule,extended release 24 hr .COMPLEX #90 caps hydrocodone 5 mg-acetaminophen 325 1 tablet PO Q6H PRN pain #14 tabs 04/03/25 04/30/25 Rx mg tablet ondansetron 4 mg disintegrating 4 mg PO Q8H PRN nausea and 04/03/25 04/30/25 Rx tablet vomiting #14 tabs oxybutynin chloride 15 mg 15 mg PO HS #90 tabs 04/04/25 04/30/25 Rx tablet,extended release 24 hr ferrous sulfate 325 mg (65 mg See Rx Instructions .Route 04/19/25 04/30/25 Rx iron) tablet .COMPLEX #90 tabs rivaroxaban 20 mg tablet (Xarelto) See Rx Instructions .Route 04/29/25 04/30/25 Rx .COMPLEX #90 tabs Allergies Allergy/AdvReac Type Severity Reaction Status Date / Time Opioids - Morphine Analogues AdvReac Intermediate Nausea and Verified 04/30/25 13:41 Vomiting Vital Signs Vital Signs - 24 hr 04/30/25 10:04 04/30/25 10:33 04/30/25 10:33 Temperature 36.7 C Pulse Rate 78 67 66 Respiratory Rate 15 19 Blood Pressure 149/80 H 137/63 Pulse Oximetry 98 99 Oxygen Delivery Room Air 04/30/25 11:46 04/30/25 12:29 04/30/25 13:06 Temperature 36.6 C Pulse Rate 73 71 55 L Respiratory Rate 13 19 14 Blood Pressure 131/67 134/70 134/67 Pulse Oximetry 98 98 96 Oxygen Delivery 04/30/25 13:50 04/30/25 14:00 Temperature 36.4 C L Pulse Rate 70 Respiratory Rate 14 Blood Pressure 133/64 Pulse Oximetry 98 Oxygen Delivery Room Air Exam Const: General: comfortable and no acute distress HENMT: Mouth: Yes moist mucous membranes Eyes: General: appearance normal, both eyes and all related structures Neck: Neck: supple and no JVD Resp: Effort & Inspection: normal respiratory effort GI: Inspection: non-distended GI Palp: Yes Soft to palpation and No Tenderness to palpation present (GI) Neuro: General: gait normal Cognition (Neuro): normal cognition Speech: normal speech Extrem: Left lower extremity: lower leg Details: tenderness, ankle Details: normal to inspection; no tenderness and foot Details: tenderness Location: of the dorsal foot, abnormal ROM of toe Details: pain with active ROM and pain with passive ROM, edema ( 2+), vascular exam Details: dorsalis pedis pulse present and motor-sensory exam light-touch normal; no ecchymosis, no crepitus and no puncture wound Psych: Mental Status: mental status grossly normal Affect: normal affect Results Labs 04/30/25 10:38 04/30/25 10:38 Labs: Abnormal lab results 04/30/25 04/30/25 Range/Units 10:38 12:42 WBC 10.4 H (4.5-10.0) K/mm3 MCHC 31.8 L (32-36) g/dl RDW 15.7 H (11.5-14.5) % Immature Gran % (Auto) 0.6 H (0-0.5) % [place] # (Auto) 0.7 H (0.1-0.6) K/mm3 Eos # (Auto) 0.4 H (0-0.3) K/mm3 Abs Immat Gran (auto) 0.06 H (0.00-0.031) K/mm3 BUN 27 H (9-20) mg/dL Glucose 115 H (65-110) mg/dL Leukocyte Esterase Rfl Trace H (Negative) ROSA/UL H & H 04/30/25 Range/Units 10:38 Hgb 14.3 (14.0-18.0) g/dL Hct 45.0 (42.0-52.0) % All other labs normal.
[2025-04-30] MEDS: RIVAROXABAN 20 MG TABLET BY MOUTH (17:39)
[2025-04-30] MEDS: ATORVASTATIN 40 MG TABLET PO (17:39)
[2025-04-30] MEDS: FLUTICASONE/SALMETEROL 115-21 MCG INHALER 1 PUFF 2 PUFF INHALATION (20:34)
[2025-04-30] MEDS: oxyBUTYnin CHLORIDE XL 5 MG TAB.ER.24 15 MG PO (20:39)
[2025-05-01 04:53] VITALS: BP 146/79; PULSE 74; RESP 16; TEMP 36.2; O2SAT 98
[2025-05-01 06:46] LABS: Hematocrit 43.6 % (42.0-52.0); Hemoglobin 13.8 g/dL (14.0-18.0); Immature Granulocyte Percent A 0.4 % (0-0.5); Lymphocytes Absolute Auto 2.60 K/mm3 (0.9-3.2); Mean Corpuscular HGB Conc 31.7 g/dl (32-36); Mean Corpuscular Hemoglobin 30.2 pg (26-34); Mean Corpuscular Volume 95.4 fl (80-100); Nucleated Red Blood Cells Absolute Auto 0.000 K/mm3 (0.0-0.012); Nucleated Red Blood Cells Perc 0.0 % (0.0-0.2); Platelet Count Result 184 k/mm3 (150-375); Red Blood Count 4.57 M/mm3 (4.6-6.20); White Blood Count 8.3 K/mm3 (4.5-10.0)
[2025-05-01] MEDS: FLUTICASONE/SALMETEROL 115-21 MCG INHALER 1 PUFF 2 PUFF INHALATION ×2 (07:05→21:02)
[2025-05-01 07:07] VITALS: O2SAT 96
[2025-05-01 07:11] LABS: Anion Gap 4 mmol/L (4-12); Blood Urea Nitrogen 24 mg/dL (9-20); Calcium 8.7 mg/dL (8.4-10.2); Carbon Dioxide 27 mmol/L (22-30); Chloride 106 mmol/L (98-107); Estimated CRCL calculation 59 ml/min; Estimated Glomerular Filt Rate > 60; Glucose 108 mg/dL (65-110); Potassium 4.1 mmol/L (3.4-5.0); Sodium 137 mmol/L (137-145)
[2025-05-01] MEDS: ASPIRIN 81 MG ENTERIC TABLET PO (09:03)
[2025-05-01] MEDS: FINASTERIDE 5 MG TABLET BY MOUTH (09:03)
[2025-05-01] MEDS: dilTIAZem HCL CD 180 MG CAP.24HR BY MOUTH (09:03)
[2025-05-01] MEDS: FERROUS SULFATE 325 MG TABLET BY MOUTH (09:03)
[2025-05-01] MEDS: MULTIVITAMINS /C LUTEIN (CENTRUM SILVER) TABLET *BKC 1 TAB PO (09:03)
--- NOTE | 2025-05-01 11:02 | P.PNIM_ITS ---
Assessment and Plan Assessment and Plan (1) Foot fracture: Qualifiers: Encounter type: subsequent encounter Fracture healing: with routine healing Fracture type: closed Laterality: left Qualified Code(s): S92.902D - Unspecified fracture of left foot, subsequent encounter for fracture with routine healing Code(s): S92.909A - Unspecified fracture of unspecified foot, initial encounter for closed fracture Status: Acute Assessment and Plan: Patient was diagnosed with minimally displaced fractures to the left 2nd 3rd and 4th metatarsal bones on 04/03/25. Patient presents today for re-evaluation stating he has been chair bound since his most recent fracture. Left foot x-ray reads healing non to minimally displaced fractures at the anterior process of the calcaneus, the medial cuneiform and at the base of the second-fourth metatarsals. -Orthopedic surgery consult; no surgical intervention -fracture boot and PT/OT -will likely require rehab as he has been nonambulatory -ice and elevation -hydrocodone p.r.n. -medicate prior to PT/OT eval (2) Type 2 diabetes mellitus: Qualifiers: Diabetes mellitus complication status: without complication Diabetes mellitus terminal manager insulin use: without skilled nursing use Qualified Code(s): E11.9 - Type 2 diabetes mellitus without complications Code(s): E11.9 - Type 2 diabetes mellitus without complications Status: Chronic Assessment and Plan: - hypoglycemia protocol - POC blood glucose ACHS - home medication: Metformin - correct regimen ordered: Low-dose sliding scale ------- bs reviewed and stable conitnue regimen (3) Essential hypertension: Code(s): I10 - Essential (primary) hypertension Status: Chronic Assessment and Plan: Continue diltiazem (4) Hyperlipidemia: Qualifiers: Hyperlipidemia type: unspecified Qualified Code(s): E78.5 - Hyperlipidemia, unspecified Code(s): E78.5 - Hyperlipidemia, unspecified Status: Chronic Assessment and Plan: Continue Lipitor (5) Atrial fibrillation: Qualifiers: Atrial fibrillation type: unspecified Qualified Code(s): I48.91 - Unspecified atrial fibrillation Code(s): I48.91 - Unspecified atrial fibrillation Status: Chronic Assessment and Plan: Continue Xarelto Plan Diet: Consistent carb lines/drains: PIV Fluids: NA Code status: DNR Medical Record Review I have reviewed the following patient records and this information was taken into consideration when formulating the assessment and plan.: previous labs Time Spent With Patient Time with patient: 25 - 35 minutes Subjective Date/time seen: 05/01/25 11:02 Interval history: 84-year-old male with past medical history of diabetes, frequent falls, CKD, ANEUDY, AFib, hypertension, hyperlipidemia presents to the ED on 04/30/2025 with complaints of generalized weakness. Patient was diagnosed with minimally displa earnestine fractures to the left 2nd 3rd and 4th metatarsal bones on 04/03/25. This was nonoperable and patient was sent home with a post op shoe. Patient was referred to Podiatry for follow-up but has not gone to an appointment because he has stairs in his apartment. He has reportedly been attempting to work with home health care but has been getting progressively weaker. He was also noted to have a healing 5th proximal phalanx fracture which was originally noted on 02/05 in the ED as well. Patient presents today for re-evaluation stating he has been chair bound since his most recent fracture. Patient also complains of burning with urination. Initial vital signs 149/80, HR 78, respirations 15, afebrile and 98% on room air. Mild leukocytosis with WBC 10.4, BUN 27, UA without signs of infection. EKG with AFib with rate 66 Chest x-ray mild opacities at posterior lung bases, representing atelectasis, mild pulmonary edema, pneumonia or possible combination. Left foot x-ray reads healing non to minimally displaced fractures at the anterior process of the calcaneus, the medial cuneiform and at the base of the second-fourth metatarsals. LLE doppler negative for DVT Pt is seen and examined. Ortho consulted. Pt/ot ordered. Pt is comfortable, in no distress. Review of Systems Review of Systems: All systems reviewed & are unremarkable except as noted in HPI and below Exam Narrative: GENERAL: non-toxic appearing, in no acute distress. HEAD: Normocephalic, atraumatic. EYES: PERRLA. Conjunctivae clear. NOSE: Normal no drainage. THROAT: Pharynx clear, no exudate. NECK: Trachea midline. No adenopathy, no masses. RESPIRATORY: Airway patent, respirations nonlabored. CTA. CARDIOVASCULAR: Irregular rate and rhythm GASTROINTESTINAL: Abdomen is soft and nontender. No organomegaly. Bowel sounds normal in all quadrants. GENITOURINARY: Defer MUSCULOSKELETAL: Moves all extremities. No gross deformities. Pain with manipulation to the left foot. SKIN: Warm, dry, normal color. Scattered ecchymosis NEURO: A&O X4. Speech clear PSYCHIATRIC: Normal interaction Const: General: comfortable Objective Data Vital Signs Vital Signs: Vital Signs - 24 hr 04/30/25 11:46 04/30/25 12:29 04/30/25 13:06 Temperature 98 F Pulse Rate 73 71 55 L Respiratory Rate 13 19 14 Blood Pressure 131/67 134/70 134/67 Pulse Oximetry 98 98 96 Oxygen Delivery 04/30/25 13:50 04/30/25 14:00 04/30/25 20:12 Temperature 97.5 F L 96.9 F L Pulse Rate 70 69 Respiratory Rate 14 16 Blood Pressure 133/64 144/59 H Pulse Oximetry 98 98 Oxygen Delivery Room Air 04/30/25 20:30 04/30/25 20:34 04/30/25 20:39 Temperature Pulse Rate 68 Respiratory Rate 18 Blood Pressure Pulse Oximetry 98 Oxygen Delivery Room Air Room Air 05/01/25 04:53 05/01/25 07:07 05/01/25 09:37 Temperature 97.2 F L Pulse Rate 74 Respiratory Rate 16 Blood Pressure 146/79 H Pulse Oximetry 98 96 Oxygen Delivery Room Air Room Air Intake/Output Intake/Output: Intake & Output 04/28/25 04/29/25 04/30/25 05/01/25 23:59 23:59 23:59 23:59 Intake Total 300 480 Output Total 700 200 Balance -400 280 Meds/Results Medications: Active Medications Generic Name Dose Route Start Last Admin Trade Name Freq PRN Reason Stop Dose Admin Hydrocodone Bitart/Acetaminophen 1 tab 04/30/25 13:48 Hydrocodone/Acetaminophen (*Crx) 5-325 Mg Tablet PO Q6H PRN Pain 4-6 Aspirin 81 mg 05/01/25 09:00 05/01/25 09:03 Aspirin 81 Mg Enteric Tablet PO 81 mg QAM MELISSA Administration Atorvastatin Calcium 40 mg 04/30/25 18:00 04/30/25 17:39 Atorvastatin 40 Mg Tablet PO 40 mg QPM MELISSA Administration Dextrose 12.5 gm 04/30/25 13:50 Dextrose 50% 25 Gm/50 Ml Syringe IV PUSH PRN PRN Hypoglycemia Protocol Diltiazem HCl 180 mg 05/01/25 09:00 05/01/25 09:03 Diltiazem Hcl Cd 180 Mg Cap.24hr BY MOUTH 180 mg QAM MELISSA Administration Ferrous Sulfate 325 mg 05/01/25 09:00 05/01/25 09:03 Ferrous Sulfate 325 Mg Tablet BY MOUTH 325 mg QAM MELISSA Administration Finasteride 5 mg 05/01/25 09:00 05/01/25 09:03 Finasteride 5 Mg Tablet BY MOUTH 5 mg QAM MELISSA Administration Glucagon 1 mg 04/30/25 13:50 Glucagon For Inj 1 Mg Vial IM PRN PRN Hypoglycemia Protocol Glucose 15 gm 04/30/25 13:50 Glucose Oral Gel 15 Gm Of Glucse In 37.5 Gm Tube PO PRN PRN Hypoglycemia Protocol Dextrose 1,000 mls @ 100 mls/hr 04/30/25 13:50 Dextrose 5% 1,000 Ml IVPB PRN PRN Hypoglycemia Protocol Insulin Aspart 2 - 5 units 04/30/25 17:00 05/01/25 09:04 Insulin Aspart (*Bkc) 100 Units/Ml SUB-Q Not Given TIDWM [facility] Protocol Multivitamins/Minerals 1 tab 05/01/25 09:00 05/01/25 09:03 Multivitamins /C Lutein (Centrum Silver) Tablet *Bkc PO 1 tab DAILY MELISSA Administration Oxybutynin Chloride 15 mg 04/30/25 21:00 04/30/25 20:39 Oxybutynin Chloride Xl 5 Mg Tab.Er.24 PO 15 mg HS MELISSA Administration Rivaroxaban 20 mg 04/30/25 18:00 04/30/25 17:39 Rivaroxaban 20 Mg Tablet BY MOUTH 20 mg QPM MELISSA Administration Fluticasone/Salmeterol 2 puff 04/30/25 20:00 05/01/25 07:05 Fluticasone/Salmeterol 115-21 Mcg Inhaler 1 Puff INHALATION 2 puff Q12HRT MELISSA Administration Radiology Results: ITS Impressions Chest X-Ray 04/30/25 10:59 IMPRESSION: 1. Mild opacities at the posterior lung bases which could represent atelectasis, mild pulmonary edema, pneumonia or some combination thereof. Foot X-Ray 04/30/25 11:01 IMPRESSION: 1. Healing non to minimally displaced fractures at the anterior process of the calcaneus, the medial cuneiform and at the base of the second-fourth metatarsals. Venous Doppler Study 04/30/25 17:30 Impression: Negative for DVT. Labs Labs: Laboratory Results - last 24 hr 04/30/25 04/30/25 04/30/25 10:38 12:42 16:48 WBC RBC Hgb Hct MCV MCH MCHC RDW Plt Count MPV Immature Gran % (Auto) Neut % (Auto) Lymph % (Auto) [place] % (Auto) Eos % (Auto) Baso % (Auto) Lymph # (Auto) [place] # (Auto) Eos # (Auto) Baso # (Auto) Abs Immat Gran (auto) Absolute Neuts (auto) Absolute Nucleated RBC Nucleated RBC % Sodium 138 Potassium 4.4 Chloride 104 Carbon Dioxide 29 Anion Gap 5 BUN 27 H Creatinine 1.08 Estim Creat Clear Calc 55 Estimated GFR > 60 Glucose 115 H POC Capillary Glucose 121 H Calcium 9.0 Total Bilirubin 0.6 AST 23 ALT 17 Alkaline Phosphatase 47 Total Protein 6.5 Albumin 3.5 Urine Color Yellow Urine Appearance Clear Urine pH 7.5 Ur Specific [place] 1.016 Urine Protein Negative Urine Glucose (UA) Negative Urine Ketones Negative Ur Blood (Man) Negative Urine Nitrate Negative Urine Bilirubin Negative Urine Urobilinogen 1.0 Leukocyte Esterase Rfl Trace H Urine RBC 0-2 Urine WBC 0-5 Ur Squamous Epith Cells None seen Urine Bacteria None seen Urine Casts 0-2 04/30/25 05/01/25 05/01/25 20:10 06:07 07:35 WBC 8.3 RBC 4.57 L Hgb 13.8 L Hct 43.6 MCV 95.4 MCH 30.2 MCHC 31.7 L RDW 15.7 H Plt Count 184 MPV 9.6 Immature Gran % (Auto) 0.4 Neut % (Auto) 53.9 Lymph % (Auto) 31.2 [place] % (Auto) 8.8 H Eos % (Auto) 4.9 H Baso % (Auto) 0.8 Lymph # (Auto) 2.60 [place] # (Auto) 0.7 H Eos # (Auto) 0.4 H Baso # (Auto) 0.1 Abs Immat Gran (auto) 0.03 Absolute Neuts (auto) 4.5 Absolute Nucleated RBC 0.000 Nucleated RBC % 0.0 Sodium 137 Potassium 4.1 Chloride 106 Carbon Dioxide 27 Anion Gap 4 BUN 24 H Creatinine 1.00 Estim Creat Clear Calc 59 Estimated GFR > 60 Glucose 108 POC Capillary Glucose 127 H 114 H Calcium 8.7 Total Bilirubin AST ALT Alkaline Phosphatase Total Protein Albumin Urine Color Urine Appearance Urine pH Ur Specific [place] Urine Protein Urine Glucose (UA) Urine Ketones Ur Blood (Man) Urine Nitrate Urine Bilirubin Urine Urobilinogen Leukocyte Esterase Rfl Urine RBC Urine WBC Ur Squamous Epith Cells Urine Bacteria Urine Casts Quality VTE Prophylaxis VTE prophylaxis: pharmacologic ordered
[2025-05-01 13:03] VITALS: BMI 30.2
[2025-05-01 14:00] VITALS: BP 130/58; PULSE 53; RESP 16; TEMP 36.9; O2SAT 99
[2025-05-01] MEDS: ATORVASTATIN 40 MG TABLET PO (16:59)
[2025-05-01] MEDS: RIVAROXABAN 20 MG TABLET BY MOUTH (16:59)
[2025-05-01] MEDS: INSULIN ASPART (*BKC) 100 UNITS/ML SUB-Q (17:30)
[2025-05-01] MEDS: oxyBUTYnin CHLORIDE XL 5 MG TAB.ER.24 15 MG PO (20:26)
[2025-05-01 21:03] VITALS: PULSE 70; RESP 18; O2SAT 95
[2025-05-01 22:00] VITALS: BP 144/63; PULSE 74; RESP 14; TEMP 36.7; O2SAT 96
[2025-05-02 06:00] VITALS: BP 140/86; PULSE 68; RESP 14; TEMP 36.6; O2SAT 99
[2025-05-02] MEDS: FLUTICASONE/SALMETEROL 115-21 MCG INHALER 1 PUFF 2 PUFF INHALATION ×2 (07:52→20:57)
[2025-05-02] MEDS: ASPIRIN 81 MG ENTERIC TABLET PO (11:23)
[2025-05-02] MEDS: FINASTERIDE 5 MG TABLET BY MOUTH (11:23)
[2025-05-02] MEDS: FERROUS SULFATE 325 MG TABLET BY MOUTH (11:23)
[2025-05-02] MEDS: MULTIVITAMINS /C LUTEIN (CENTRUM SILVER) TABLET *BKC 1 TAB PO (11:23)
[2025-05-02] MEDS: dilTIAZem HCL CD 180 MG CAP.24HR BY MOUTH (11:23)
--- NOTE | 2025-05-02 12:13 | P.PNOP_ITS ---
Progress Note: A&P Assessment and Plan (1) At moderate risk for fall: Code(s): Z91.81 - History of falling Status: Acute (2) Atrial fibrillation: Qualifiers: Atrial fibrillation type: unspecified Qualified Code(s): I48.91 - Unspecified atrial fibrillation Code(s): I48.91 - Unspecified atrial fibrillation Status: Chronic (3) Type 2 diabetes mellitus: Qualifiers: Diabetes mellitus detention insulin use: without detention use Diabetes mellitus complication status: without complication Qualified Code(s): E11.9 - Type 2 diabetes mellitus without complications Code(s): E11.9 - Type 2 diabetes mellitus without complications Status: Chronic (4) Foot fracture: Qualifiers: Encounter type: subsequent encounter Fracture healing: with routine healing Fracture type: closed Laterality: left Qualified Code(s): S92.902D - Unspecified fracture of left foot, subsequent encounter for fracture with routine healing Code(s): S92.909A - Unspecified fracture of unspecified foot, initial encounter for closed fracture Status: Acute Assessment and Plan: History, exam, radiographs reviewed with the patient. Radiographs from emergency room visit on 04/03 reviewed as well as new radiographs which reveal healing non to minimally displaced fractures at the anterior process of the calcaneus, the medial cuneiform and at the base of the second-fourth metatarsals. The fracture type and injury as well as radiographs discussed with the patient. Operative and nonoperative treatment options reviewed. Recommended non operative treatment. Risk of nonunion, malunion or late displacement discussed. Stiffness, pain and possible dysfunction of the joint discussed. Fracture precautions and activity restrictions reviewed. The patient verbalizes understanding. Patient has been nonambulatory since the time of his injury without any follow- up. He was not discharged with DME. He has not followed with his primary care provider and has not been seen by the heating equipment repairer for which he was referred. Doppler of the left lower extremity negative for DVT. Patient is complaining of significant left knee pain which is inhibiting his ability to work with PT and OT. We will order left knee radiographs at this time for further evaluation. Patient has been fit with fracture boot and is tolerating this well. Patient will require acute rehab at discharge given his deconditioning. Pain control. Ice. Elevation. We will continue to monitor. Plan Reviewed history, exam, radiographs and current labs with attending MD and covering surgeon, Dr. Martel, who agrees with current plan as indicated above. No further recommendations from Dr. Martel at this time. Subjective Subjective Date/Time Seen: 05/02/25 12:13 Interval history: Orthopedic follow-up for left foot fracture. Overall, patient reports improvement in left foot pain. He is tolerating the fracture boot well however he does have left knee pain upon standing. He reports that this has been chronic in nature. However, he has not stood in several weeks due to the left foot fracture with no follow-up. Review of Systems Review of Systems: All systems reviewed & are unremarkable except as noted in HPI and below Exam Const: General: comfortable and no acute distress HENMT: Mouth: Yes moist mucous membranes Eyes: General: appearance normal, both eyes and all related structures Neck: Neck: supple and no JVD Resp: Effort & Inspection: normal respiratory effort GI: Inspection: non-distended GI Palp: Yes Soft to palpation and No Tenderness to palpation present (GI) Neuro: General: gait normal Cognition (Neuro): normal cognition Speech: normal speech Extrem: Left lower extremity: knee Details: abnormal to inspection, te nderness, swelling ( Mild effusion) and abnormal ROM Details: pain with active ROM Details: with extension and with flexion, lower leg Details: tenderness, ankle Details: normal to inspection; no tenderness and foot Details: tenderness Location: of the dorsal foot, abnormal ROM of toe Details: pain with active ROM and pain with passive ROM, edema ( 2+), vascular exam Details: dorsalis pedis pulse present and motor-sensory exam light-touch normal; no ecchymosis, no crepitus and no puncture wound Psych: Mental Status: mental status grossly normal Affect: normal affect Objective Data Vital Signs Vital Signs: Vital Signs - 24 hr 05/01/25 14:00 05/01/25 20:26 05/01/25 21:03 Temperature 36.9 C Pulse Rate 53 L Respiratory Rate 16 Blood Pressure 130/58 L Pulse Oximetry 99 95 Oxygen Delivery Room Air Room Air 05/01/25 21:03 05/01/25 22:00 05/02/25 06:00 Temperature 36.7 C 36.6 C Pulse Rate 70 74 68 Respiratory Rate 18 14 14 Blood Pressure 144/63 H 140/86 Pulse Oximetry 96 99 Oxygen Delivery 05/02/25 07:56 Temperature Pulse Rate Respiratory Rate Blood Pressure Pulse Oximetry Oxygen Delivery Room Air Intake/Output Intake/Output: Intake & Output 04/29/25 04/30/25 05/01/25 05/02/25 23:59 23:59 23:59 23:59 Intake Total 300 2045 240 Output Total 773 395 2607 Balance -400 1120 -760 Meds/Results Medications: Active Medications Generic Name Dose Route Start Last Admin Trade Name Freq PRN Reason Stop Dose Admin Hydrocodone Bitart/Acetaminophen 1 tab 04/30/25 13:48 Hydrocodone/Acetaminophen (*Crx) 5-325 Mg Tablet PO Q6H PRN Pain 4-6 Aspirin 81 mg 05/01/25 09:00 05/02/25 11:23 Aspirin 81 Mg Enteric Tablet PO 81 mg QAM MELISSA Administration Atorvastatin Calcium 40 mg 04/30/25 18:00 05/01/25 16:59 Atorvastatin 40 Mg Tablet PO 40 mg QPM MELISSA Administration Dextrose 12.5 gm 04/30/25 13:50 Dextrose 50% 25 Gm/50 Ml Syringe IV PUSH PRN PRN Hypoglycemia Protocol Diltiazem HCl 180 mg 05/01/25 09:00 05/02/25 11:23 Diltiazem Hcl Cd 180 Mg Cap.24hr BY MOUTH 180 mg QAM MELISSA Administration Ferrous Sulfate 325 mg 05/01/25 09:00 05/02/25 11:23 Ferrous Sulfate 325 Mg Tablet BY MOUTH 325 mg QAM MELISSA Administration Finasteride 5 mg 05/01/25 09:00 05/02/25 11:23 Finasteride 5 Mg Tablet BY MOUTH 5 mg QAM MELISSA Administration Glucagon 1 mg 04/30/25 13:50 Glucagon For Inj 1 Mg Vial IM PRN PRN Hypoglycemia Protocol Glucose 15 gm 04/30/25 13:50 Glucose Oral Gel 15 Gm Of Glucse In 37.5 Gm Tube PO PRN PRN Hypoglycemia Protocol Dextrose 1,000 mls @ 100 mls/hr 04/30/25 13:50 Dextrose 5% 1,000 Ml IVPB PRN PRN Hypoglycemia Protocol Insulin Aspart 2 - 5 units 04/30/25 17:00 05/02/25 11:23 Insulin Aspart (*Bkc) 100 Units/Ml SUB-Q Not Given TIDWM MELISSA Protocol Multivitamins/Minerals 1 tab 05/01/25 09:00 05/02/25 11:23 Multivitamins /C Lutein (Centrum Silver) Tablet *Bkc PO 1 tab DAILY MELISSA Administration Oxybutynin Chloride 15 mg 04/30/25 21:00 05/01/25 20:26 Oxybutynin Chloride Xl 5 Mg Tab.Er.24 PO 15 mg HS MELISSA Administration Rivaroxaban 20 mg 04/30/25 18:00 05/01/25 16:59 Rivaroxaban 20 Mg Tablet BY MOUTH 20 mg QPM MELISSA Administration Fluticasone/Salmeterol 2 puff 04/30/25 20:00 05/02/25 07:52 Fluticasone/Salmeterol 115-21 Mcg Inhaler 1 Puff INHALATION 2 puff Q12HRT MELISSA Administration Radiology Results: ITS Impressions Chest X-Ray 04/30/25 10:59 IMPRESSION: 1. Mild opacities at the posterior lung bases which could represent atelectasis, mild pulmonary edema, pneumonia or some combination thereof. Foot X-Ray 04/30/25 11:01 IMPRESSION: 1. Healing non to minimally displaced fractures at the anterior process of the calcaneus, the medial cuneiform and at the base of the second-fourth metatarsals. Venous Doppler Study 04/30/25 17:30 Impression: Negative for DVT. Labs Labs: Laboratory Results - last 24 hr 05/01/25 05/01/25 05/02/25 17:11 22:12 07:55 POC Capillary Glucose 218 H 145 H 135 H
[2025-05-02 14:00] VITALS: BP 125/48; PULSE 104; RESP 20; TEMP 36.5; O2SAT 100
--- NOTE | 2025-05-02 14:42 | PM.IMPN2 ---
Assessment and Plan Assessment and Plan (1) Foot fracture: Qualifiers: Encounter type: subsequent encounter Fracture healing: with routine healing Fracture type: closed Laterality: left Qualified Code(s): S92.902D - Unspecified fracture of left foot, subsequent encounter for fracture with routine healing Code(s): S92.909A - Unspecified fracture of unspecified foot, initial encounter for closed fracture Status: Acute Assessment and Plan: Patient was diagnosed with minimally displaced fractures to the left 2nd 3rd and 4th metatarsal bones on 04/03/25. Patient presents today for re-evaluation stating he has been chair bound since his most recent fracture. Left foot x-ray reads healing non to minimally displaced fractures at the anterior process of the calcaneus, the medial cuneiform and at the base of the second-fourth metatarsals. -Orthopedic surgery consult; no surgical intervention -fracture boot and PT/OT -will likely require rehab as he has been nonambulatory -ice and elevation -hydrocodone p.r.n. 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 Diabetes mellitus complication status: without complication Qualified Code(s): E11.9 - Type 2 diabetes mellitus without complications Code(s): E11.9 - Type 2 diabetes mellitus without complications Status: Chronic Assessment and Plan: - hypoglycemia protocol - POC blood glucose ACHS - home medication: Metformin - correct regimen ordered: Low-dose sliding scale ------- bs reviewed and stable conitnue regimen (3) Essential hypertension: Code(s): I10 - Essential (primary) hypertension Status: Chronic Assessment and Plan: Continue diltiazem (4) Hyperlipidemia: Qualifiers: Hyperlipidemia type: unspecified Qualified Code(s): E78.5 - Hyperlipidemia, unspecified Code(s): E78.5 - Hyperlipidemia, unspecified Status: Chronic Assessment and Plan: Continue Lipitor (5) Atrial fibrillation: Qualifiers: Atrial fibrillation type: unspecified Qualified Code(s): I48.91 - Unspecified atrial fibrillation Code(s): I48.91 - Unspecified atrial fibrillation Status: Chronic Assessment and Plan: Continue Xarelto Plan Diet: Consistent carb lines/drains: PIV Fluids: NA Code status: DNR Medical Record Review I have reviewed the following patient records and this information was taken into consideration when formulating the assessment and plan.: previous labs Time Spent With Patient Time with patient: 25 - 35 minutes Subjective Date/time seen: 05/02/25 14:42 Interval history: Pt is seen and examined. He reports improvement in left foot pain. He is tolerating the fracture boot well however he does have left knee pain upon standing. Continue to work with PT.OT. denies n/v/d. care coordination following for discharge needs. Review of Systems Review of Systems: All systems reviewed & are unremarkable except as noted in HPI and below Exam Narrative: GENERAL: non-toxic appearing, in no acute distress. HEAD: Normocephalic, atraumatic. EYES: PERRLA. Conjunctivae clear. NOSE: Normal no drainage. THROAT: Pharynx clear, no exudate. NECK: Trachea midline. No adenopathy, no masses. RESPIRATORY: Airway patent, respirations nonlabored. CTA. CARDIOVASCULAR: Irregular rate and rhythm GASTROINTESTINAL: Abdomen is soft and nontender. No organomegaly. Bowel sounds normal in all quadrants. GENITOURINARY: Defer MUSCULOSKELETAL: Moves all extremities. No gross deformities. Pain with manipulation to the left foot. SKIN: Warm, dry, normal color. Scattered ecchymosis NEURO: A&O X4. Speech clear PSYCHIATRIC: Normal interaction Const: General: comfortable Objective Data Vital Signs Vital Signs: Vital Signs - 24 hr 05/01/25 20:26 05/01/25 21:03 05/01/25 21:03 Temperature Pulse Rate 70 Respiratory Rate 18 Blood Pressure Pulse Oximetry 95 Oxygen Delivery Room Air Room Air 05/01/25 22:00 05/02/25 06:00 05/02/25 07:56 Temperature 98.0 F 97.9 F Pulse Rate 74 68 Respiratory Rate 14 14 Blood Pressure 144/63 H 140/86 Pulse Oximetry 96 99 Oxygen Delivery Room Air 05/02/25 08:00 Temperature Pulse Rate Respiratory Rate Blood Pressure Pulse Oximetry Oxygen Delivery Room Air Intake/Output Intake/Output: Intake & Output 04/29/25 04/30/25 05/01/25 05/02/25 23:59 23:59 23:59 23:59 Intake Total 300 2045 480 Output Total 823 300 7676 Balance -400 1120 -520 Meds/Results Medications: Active Medications Generic Name Dose Route Start Last Admin Trade Name Freq PRN Reason Stop Dose Admin Hydrocodone Bitart/Acetaminophen 1 tab 04/30/25 13:48 Hydrocodone/Acetaminophen (*Crx) 5-325 Mg Tablet PO Q6H PRN Pain 4-6 Aspirin 81 mg 05/01/25 09:00 05/02/25 11:23 Aspirin 81 Mg Enteric Tablet PO 81 mg QAM MELISSA Administration Atorvastatin Calcium 40 mg 04/30/25 18:00 05/01/25 16:59 Atorvastatin 40 Mg Tablet PO 40 mg QPM MELISSA Administration Dextrose 12.5 gm 04/30/25 13:50 Dextrose 50% 25 Gm/50 Ml Syringe IV PUSH PRN PRN Hypoglycemia Protocol Diltiazem HCl 180 mg 05/01/25 09:00 05/02/25 11:23 Diltiazem Hcl Cd 180 Mg Cap.24hr BY MOUTH 180 mg QAM MELISSA Administration Ferrous Sulfate 325 mg 05/01/25 09:00 05/02/25 11:23 Ferrous Sulfate 325 Mg Tablet BY MOUTH 325 mg QAM MELISSA Administration Finasteride 5 mg 05/01/25 09:00 05/02/25 11:23 Finasteride 5 Mg Tablet BY MOUTH 5 mg QAM MELISSA Administration Glucagon 1 mg 04/30/25 13:50 Glucagon For Inj 1 Mg Vial IM PRN PRN Hypoglycemia Protocol Glucose 15 gm 04/30/25 13:50 Glucose Oral Gel 15 Gm Of Glucse In 37.5 Gm Tube PO PRN PRN Hypoglycemia Protocol Dextrose 1,000 mls @ 100 mls/hr 04/30/25 13:50 Dextrose 5% 1,000 Ml IVPB PRN PRN Hypoglycemia Protocol Insulin Aspart 2 - 5 units 04/30/25 17:00 05/02/25 11:23 Insulin Aspart (*Bkc) 100 Units/Ml SUB-Q Not Given TIDWM MELISSA Protocol Multivitamins/Minerals 1 tab 05/01/25 09:00 05/02/25 11:23 Multivitamins /C Lutein (Centrum Silver) Tablet *Bkc PO 1 tab DAILY MELISSA Administration Oxybutynin Chloride 15 mg 04/30/25 21:00 05/01/25 20:26 Oxybutynin Chloride Xl 5 Mg Tab.Er.24 PO 15 mg HS MELISSA Administration Rivaroxaban 20 mg 04/30/25 18:00 05/01/25 16:59 Rivaroxaban 20 Mg Tablet BY MOUTH 20 mg QPM MELISSA Administration Fluticasone/Salmeterol 2 puff 04/30/25 20:00 05/02/25 07:52 Fluticasone/Salmeterol 115-21 Mcg Inhaler 1 Puff INHALATION 2 puff Q12HRT MELISSA Administration Radiology Results: ITS Impressions Chest X-Ray 04/30/25 10:59 IMPRESSION: 1. Mild opacities at the posterior lung bases which could represent atelectasis, mild pulmonary edema, pneumonia or some combination thereof. Foot X-Ray 04/30/25 11:01 IMPRESSION: 1. Healing non to minimally displaced fractures at the anterior process of the calcaneus, the medial cuneiform and at the base of the second-fourth metatarsals. Venous Doppler Study 04/30/25 17:30 Impression: Negative for DVT. Labs Labs: Laboratory Results - last 24 hr 05/01/25 05/01/25 05/02/25 17:11 22:12 07:55 POC Capillary Glucose 218 H 145 H 135 H 05/02/25 11:54 POC Capillary Glucose 117 H Quality VTE Prophylaxis VTE prophylaxis: pharmacologic ordered
[2025-05-02] MEDS: ATORVASTATIN 40 MG TABLET PO (18:35)
[2025-05-02] MEDS: RIVAROXABAN 20 MG TABLET BY MOUTH (18:35)
[2025-05-02 20:06] VITALS: BP 149/63; PULSE 67; RESP 18; TEMP 36.4; O2SAT 99
[2025-05-02 20:58] VITALS: O2SAT 99
[2025-05-02] MEDS: oxyBUTYnin CHLORIDE XL 5 MG TAB.ER.24 15 MG PO (21:31)
[2025-05-03 05:24] VITALS: BP 153/81; PULSE 69; RESP 16; TEMP 36.5; O2SAT 98
[2025-05-03] MEDS: FLUTICASONE/SALMETEROL 115-21 MCG INHALER 1 PUFF 2 PUFF INHALATION ×2 (08:32→19:53)
[2025-05-03] MEDS: FERROUS SULFATE 325 MG TABLET BY MOUTH (09:31)
[2025-05-03] MEDS: dilTIAZem HCL CD 180 MG CAP.24HR BY MOUTH (09:31)
[2025-05-03] MEDS: FINASTERIDE 5 MG TABLET BY MOUTH (09:31)
[2025-05-03] MEDS: ASPIRIN 81 MG ENTERIC TABLET PO (09:31)
[2025-05-03] MEDS: HYDROcodone/acetaminophen (*CRX) 5-325 MG TABLET 1 TAB PO (09:31)
[2025-05-03] MEDS: MULTIVITAMINS /C LUTEIN (CENTRUM SILVER) TABLET *BKC 1 TAB PO (09:31)
[2025-05-03] MEDS: LIDOCAINE 5% PATCH 1 PATCH TRANSDERM (09:32)
--- NOTE | 2025-05-03 12:52 | PM.PNORT ---
Progress Note: A&P Assessment and Plan (1) At moderate risk for fall: Code(s): Z91.81 - History of falling Status: Acute (2) Atrial fibrillation: Qualifiers: Atrial fibrillation type: unspecified Qualified Code(s): I48.91 - Unspecified atrial fibrillation Code(s): I48.91 - Unspecified atrial fibrillation Status: Chronic (3) Foot fracture: Qualifiers: Encounter type: subsequent encounter Fracture healing: with routine healing Fracture type: closed Laterality: left Qualified Code(s): S92.902D - Unspecified fracture of left foot, subsequent encounter for fracture with routine healing Code(s): S92.909A - Unspecified fracture of unspecified foot, initial encounter for closed fracture Status: Acute Assessment and Plan: History, exam, radiographs reviewed with the patient. Radiographs from emergency room visit on 04/03 reviewed as well as new radiographs which reveal healing non to minimally displaced fractures at the anterior process of the calcaneus, the medial cuneiform and at the base of the second-fourth metatarsals. The fracture type and injury as well as radiographs discussed with the patient. Operative and nonoperative treatment options reviewed. Recommended non operative treatment. Risk of nonunion, malunion or late displacement discussed. Stiffness, pain and possible dysfunction of the joint discussed. Fracture precautions and activity restrictions reviewed. The patient verbalizes understanding. Patient has been nonambulatory since the time of his injury without any follow-up. He was not discharged with DME. 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 Patient will require acute rehab at discharge given his deconditioning. Pain control. Ice. Elevation. We will continue to monitor. (4) Degenerative joint disease of knee: Qualifiers: Osteoarthritis type: primary Laterality: left Qualified Code(s): M17.12 - Unilateral primary osteoarthritis, left knee Code(s): M17.9 - Osteoarthritis of knee, unspecified Status: Acute Assessment and Plan: Doppler of the left lower extremity negative for DVT. He continued to complain of left knee pain. Radiographs of the left knee revealed o fracture, dislocation, or effusion left knee, mild tricompartmental degenerative changes, with chondrocalcinosis and evidence of peripheral arterial disease. Condition, nature, etiology and course of natural history discussed. Conservative and operative treatment options reviewed as well as the risks and benefits of both. given continued left knee pain which is inhibiting his ability to participate in PT and OT, recommended left knee injection. Patient and family consented. Hospitalist service agrees. Injection performed, tolerated well. Post-injection instructions reviewed. The risks of injection were reviewed including but not limited to skin color changes, atrophy of the soft tissue, tendon or soft tissue rupture, joint degeneration, hyper inflammatory response, allergic reaction, continued pain or dysfunction. Specific risks of the procedure including deep infection or soft tissue rupture or recurrence of symptoms reviewed. No guarantees were offered. The patient understands the need for possible further treatment. 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 Patient verbalized understanding of explained risks and wishes to proceed. Counseled on close monitoring of blood glucose readings. Plan Reviewed history, exam, radiographs and current labs with attending MD and covering surgeon, Dr. Martel, who agrees with current plan as indicated above. No further recommendations from Dr. Martel at this time. Subjective Subjective Date/Time Seen: 05/03/25 12:52 Interval history: Orthopedic follow-up for left foot fracture. Overall, patient reports improvement in left foot pain. He is tolerating the fracture boot well however he does have left knee pain upon standing. Left knee radiographs obtained yesterday. Review of Systems Review of Systems: All systems reviewed & are unremarkable except as noted in HPI and below Exam Const: General: comfortable and no acute distress HENMT: Mouth: Yes moist mucous membranes Eyes: General: appearance normal, both eyes and all related structures Neck: Neck: supple and no JVD Resp: Effort & Inspection: normal respiratory effort GI: Inspection: non-distended GI Palp: Yes Soft to palpation and No Tenderness to palpation present (GI) Neuro: General: gait normal Cognition (Neuro): normal cognition Speech: normal speech Extrem: Left lower extremity: knee Details: abnormal to inspection, tenderness, swelling ( Mild effusion) and abnormal ROM Details: pain with active ROM Details: with extension and with flexion, lower leg Details: tenderness, ankle Details: normal to inspection; no tenderness and foot Details: tenderness Location: of the dorsal foot, abnormal ROM of toe Details: pain with active ROM and pain with passive ROM, edema ( 2+), vascular exam Details: dorsalis pedis pulse present and motor-sensory exam light-touch normal; no ecchymosis, no crepitus and no puncture wound Psych: Mental Status: mental status grossly normal Affect: normal affect Objective Data Vital Signs Vital Signs: Vital Signs - 24 hr 05/02/25 14:00 05/02/25 20:00 05/02/25 20:06 Temperature 36.5 C 36.4 C Pulse Rate 104 H 67 Respiratory Rate 20 18 Blood Pressure 125/48 L 149/63 H Pulse Oximetry 100 99 Oxygen Delivery Room Air 05/02/25 20:58 05/03/25 05:24 05/03/25 08:00 Temperature 36.5 C Pulse Rate 69 Respiratory Rate 16 Blood Pressure 153/81 H Pulse Oximetry 99 98 Oxygen Delivery Room Air Room Air Intake/Output Intake/Output: Intake & Output 04/30/25 05/01/25 05/02/25 05/03/25 23:59 23:59 23:59 23:59 Intake Total 300 2045 1745 440 Output Total 076 986 7247 550 Balance -400 1120 745 -110 Meds/Results Medications: Active Medications Generic Name Dose Route Start Last Admin Trade Name Freq PRN Reason Stop Dose Admin Hydrocodone Bitart/Acetaminophen 1 tab 04/30/25 13:48 05/03/25 09:31 Hydrocodone/Acetaminophen (*Crx) 5-325 Mg Tablet PO 1 tab Q6H PRN Administration Pain 4-6 Aspirin 81 mg 05/01/25 09:00 05/03/25 09:31 Aspirin 81 Mg Enteric Tablet PO 81 mg QAM MELISSA Administration Atorvastatin Calcium 40 mg 04/30/25 18:00 05/02/25 18:35 Atorvastatin 40 Mg Tablet PO 40 mg QPM MELISSA Administration Dextrose 12.5 gm 04/30/25 13:50 Dextrose 50% 25 Gm/50 Ml Syringe IV PUSH PRN PRN Hypoglycemia Protocol Diltiazem HCl 180 mg 05/01/25 09:00 05/03/25 09:31 Diltiazem Hcl Cd 180 Mg Cap.24hr BY MOUTH 180 mg QAM MELISSA Administration Ferrous Sulfate 325 mg 05/01/25 09:00 05/03/25 09:31 Ferrous Sulfate 325 Mg Tablet BY MOUTH 325 mg QAM MELISSA Administration Finasteride 5 mg 05/01/25 09:00 05/03/25 09:31 Finasteride 5 Mg Tablet BY MOUTH 5 mg QAM MELISSA Administration Glucagon 1 mg 04/30/25 13:50 Glucagon For Inj 1 Mg Vial IM PRN PRN Hypoglycemia Protocol Glucose 15 gm 04/30/25 13:50 Glucose Oral Gel 15 Gm Of Glucse In 37.5 Gm Tube PO PRN PRN Hypoglycemia Protocol Dextrose 1,000 mls @ 100 mls/hr 04/30/25 13:50 Dextrose 5% 1,000 Ml IVPB PRN PRN Hypoglycemia Protocol Insulin Aspart 2 - 5 units 04/30/25 17:00 05/03/25 12:30 Insulin Aspart (*Bkc) 100 Units/Ml SUB-Q Not Given TIDWM MELISSA Protocol Lidocaine 1 patch 05/03/25 09:00 05/03/25 09:32 Lidocaine 5% Patch TRANSDERM 1 patch DAILY MELISSA Administration Multivitamins/Minerals 1 tab 05/01/25 09:00 05/03/25 09:31 Multivitamins /C Lutein (Centrum Silver) Tablet *Bkc PO 1 tab DAILY MELISSA Administration Oxybutynin Chloride 15 mg 04/30/25 21:00 05/02/25 21:31 Oxybutynin Chloride Xl 5 Mg Tab.Er.24 PO 15 mg HS MELISSA Administration Rivaroxaban 20 mg 04/30/25 18:00 05/02/25 18:35 Rivaroxaban 20 Mg Tablet BY MOUTH 20 mg QPM MELISSA Administration Fluticasone/Salmeterol 2 puff 04/30/25 20:00 05/03/25 08:32 Fluticasone/Salmeterol 115-21 Mcg Inhaler 1 Puff INHALATION 2 puff Q12HRT MELISSA Administration Radiology Results: ITS Impressions Chest X-Ray 04/30/25 10:59 IMPRESSION: 1. Mild opacities at the posterior lung bases which could represent atelectasis, mild pulmonary edema, pneumonia or some combination thereof. Foot X-Ray 04/30/25 11:01 IMPRESSION: 1. Healing non to minimally displaced fractures at the anterior process of the calcaneus, the medial cuneiform and at the base of the second-fourth metatarsals. Venous Doppler Study 04/30/25 17:30 Impression: Negative for DVT. Labs Labs: Laboratory Results - last 24 hr 05/02/25 05/02/25 05/02/25 11:54 17:06 20:03 POC Capillary Glucose 117 H 152 H 212 H 05/03/25 05/03/25 07:37 11:29 POC Capillary Glucose 128 H 152 H Joint Aspiration & Injection Pre-Procedure Pre-procedure care: Consent was obtained, Procedures/risks were explained, Questions were answered, Correct patient identified and Correct side and site confirmed Post Procedure Patient tolerated the procedure well?: Tolerated procedure well Position Position: Sitting Location: left Site Prepped Technique: sterile technique Anesthetic: lidocaine 1% plain (3ml) Sterile Dressing Sterile Dressing: Pressure Details: 80mg methylprednisolone injected into the left knee. KNEE Knee Procedure: medial joint line Manual palpation
[2025-05-03 14:00] VITALS: BP 150/68; PULSE 73; RESP 16; TEMP 36.6; O2SAT 97
--- NOTE | 2025-05-03 14:14 | P.PNIM_ITS ---
Assessment and Plan Assessment and Plan (1) Foot fracture: Qualifiers: Encounter type: subsequent encounter Fracture healing: with routine healing Fracture type: closed Laterality: left Qualified Code(s): S92.902D - Unspecified fracture of left foot, subsequent encounter for fracture with routine healing Code(s): S92.909A - Unspecified fracture of unspecified foot, initial encounter for closed fracture Status: Acute Assessment and Plan: Patient was diagnosed with minimally displaced fractures to the left 2nd 3rd and 4th metatarsal bones on 04/03/25. Patient presents today for re-evaluation stating he has been chair bound since his most recent fracture. Left foot x-ray reads healing non to minimally displaced fractures at the anterior process of the calcaneus, the medial cuneiform and at the base of the second-fourth metatarsals. -Orthopedic surgery consult; no surgical intervention -fracture boot and PT/OT -will likely require rehab as he has been nonambulatory -ice and elevation -hydrocodone p.r.n. 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 Diabetes mellitus complication status: without complication Qualified Code(s): E11.9 - Type 2 diabetes mellitus without complications Code(s): E11.9 - Type 2 diabetes mellitus without complications Status: Chronic Assessment and Plan: - hypoglycemia protocol - POC blood glucose ACHS - home medication: Metformin - correct regimen ordered: Low-dose sliding scale ------- bs reviewed and stable conitnue regimen (3) Essential hypertension: Code(s): I10 - Essential (primary) hypertension Status: Chronic Assessment and Plan: Continue diltiazem (4) Hyperlipidemia: Qualifiers: Hyperlipidemia type: unspecified Qualified Code(s): E78.5 - Hyperlipidemia, unspecified Code(s): E78.5 - Hyperlipidemia, unspecified Status: Chronic Assessment and Plan: Continue Lipitor (5) Atrial fibrillation: Qualifiers: Atrial fibrillation type: unspecified Qualified Code(s): I48.91 - Unspecified atrial fibrillation Code(s): I48.91 - Unspecified atrial fibrillation Status: Chronic Assessment and Plan: Continue Xarelto Plan Diet: Consistent carb lines/drains: PIV Fluids: NA Code status: DNR Medical Record Review I have reviewed the following patient records and this information was taken into consideration when formulating the assessment and plan.: previous labs Time Spent With Patient Time with patient: 25 - 35 minutes Subjective Date/time seen: 05/03/25 14:14 Interval history: Pt is seen and examined. c/o pain to lt knee. ortho is following. care coordination following for placement. Review of Systems Review of Systems: All systems reviewed & are unremarkable except as noted in HPI and below Exam Narrative: GENERAL: non-toxic appearing, in no acute distress. HEAD: Normocephalic, atraumatic. EYES: PERRLA. Conjunctivae clear. NOSE: Normal no drainage. THROAT: Pharynx clear, no exudate. NECK: Trachea midline. No adenopathy, no masses. RESPIRATORY: Airway patent, respirations nonlabored. CTA. CARDIOVASCULAR: Irregular rate and rhythm GASTROINTESTINAL: Abdomen is soft and nontender. No organomegaly. Bowel sounds normal in all quadrants. GENITOURINARY: Defer MUSCULOSKELETAL: Moves all extremities. No gross deformities. Pain with manipulation to the left foot. SKIN: Warm, dry, normal color. Scattered ecchymosis NEURO: A&O X4. Speech clear PSYCHIATRIC: Normal interaction Const: General: comfortable Objective Data Vital Signs Vital Signs: Vital Signs - 24 hr 05/02/25 20:00 05/02/25 20:06 05/02/25 20:58 Temperature 97.6 F Pulse Rate 67 Respiratory Rate 18 Blood Pressure 149/63 H Pulse Oximetry 99 99 Oxygen Delivery Room Air Room Air 05/03/25 05:24 05/03/25 08:00 Temperature 97.7 F Pulse Rate 69 Respiratory Rate 16 Blood Pressure 153/81 H Pulse Oximetry 98 Oxygen Delivery Room Air Intake/Output Intake/Output: Intake & Output 04/30/25 05/01/25 05/02/25 05/03/25 23:59 23:59 23:59 23:59 Intake Total 300 2045 1745 440 Output Total 140 345 4262 550 Balance -400 1120 745 -110 Meds/Results Medications: Active Medications Generic Name Dose Route Start Last Admin Trade Name Freq PRN Reason Stop Dose Admin Hydrocodone Bitart/Acetaminophen 1 tab 04/30/25 13:48 05/03/25 09:31 Hydrocodone/Acetaminophen (*Crx) 5-325 Mg Tablet PO 1 tab Q6H PRN Administration Pain 4-6 Aspirin 81 mg 05/01/25 09:00 05/03/25 09:31 Aspirin 81 Mg Enteric Tablet PO 81 mg QAM MELISSA Administration Atorvastatin Calcium 40 mg 04/30/25 18:00 05/02/25 18:35 Atorvastatin 40 Mg Tablet PO 40 mg QPM MELISSA Administration Dextrose 12.5 gm 04/30/25 13:50 Dextrose 50% 25 Gm/50 Ml Syringe IV PUSH PRN PRN Hypoglycemia Protocol Diltiazem HCl 180 mg 05/01/25 09:00 05/03/25 09:31 Diltiazem Hcl Cd 180 Mg Cap.24hr BY MOUTH 180 mg QAM MELISSA Administration Ferrous Sulfate 325 mg 05/01/25 09:00 05/03/25 09:31 Ferrous Sulfate 325 Mg Tablet BY MOUTH 325 mg QAM MELISSA Administration Finasteride 5 mg 05/01/25 09:00 05/03/25 09:31 Finasteride 5 Mg Tablet BY MOUTH 5 mg QAM MELISSA Administration Glucagon 1 mg 04/30/25 13:50 Glucagon For Inj 1 Mg Vial IM PRN PRN Hypoglycemia Protocol Glucose 15 gm 04/30/25 13:50 Glucose Oral Gel 15 Gm Of Glucse In 37.5 Gm Tube PO PRN PRN Hypoglycemia Protocol Dextrose 1,000 mls @ 100 mls/hr 04/30/25 13:50 Dextrose 5% 1,000 Ml IVPB PRN PRN Hypoglycemia Protocol Insulin Aspart 2 - 5 units 04/30/25 17:00 05/03/25 12:30 Insulin Aspart (*Bkc) 100 Units/Ml SUB-Q Not Given TIDWM MELISSA Protocol Lidocaine 1 patch 05/03/25 09:00 05/03/25 09:32 Lidocaine 5% Patch TRANSDERM 1 patch DAILY MELISSA Administration Multivitamins/Minerals 1 tab 05/01/25 09:00 05/03/25 09:31 Multivitamins /C Lutein (Centrum Silver) Tablet *Bkc PO 1 tab DAILY MELISSA Administration Oxybutynin Chloride 15 mg 04/30/25 21:00 05/02/25 21:31 Oxybutynin Chloride Xl 5 Mg Tab.Er.24 PO 15 mg HS MELISSA Administration Rivaroxaban 20 mg 04/30/25 18:00 05/02/25 18:35 Rivaroxaban 20 Mg Tablet BY MOUTH 20 mg QPM MELISSA Administration Fluticasone/Salmeterol 2 puff 04/30/25 20:00 05/03/25 08:32 Fluticasone/Salmeterol 115-21 Mcg Inhaler 1 Puff INHALATION 2 puff Q12HRT MELISSA Administration Radiology Results: ITS Impressions Chest X-Ray 04/30/25 10:59 IMPRESSION: 1. Mild opacities at the posterior lung bases which could represent atelectasis, mild pulmonary edema, pneumonia or some combination thereof. Foot X-Ray 04/30/25 11:01 IMPRESSION: 1. Healing non to minimally displaced fractures at the anterior process of the calcaneus, the medial cuneiform and at the base of the second-fourth metatarsals. Venous Doppler Study 04/30/25 17:30 Impression: Negative for DVT. Labs Labs: Laboratory Results - last 24 hr 05/02/25 05/02/25 05/03/25 17:06 20:03 07:37 POC Capillary Glucose 152 H 212 H 128 H 05/03/25 11:29 POC Capillary Glucose 152 H Quality VTE Prophylaxis VTE prophylaxis: pharmacologic ordered
[2025-05-03] MEDS: ATORVASTATIN 40 MG TABLET PO (17:51)
[2025-05-03] MEDS: RIVAROXABAN 20 MG TABLET BY MOUTH (17:51)
[2025-05-03 19:56] VITALS: O2SAT 98
[2025-05-03 20:00] VITALS: PULSE 82; RESP 18; O2SAT 95
[2025-05-03 20:36] VITALS: BP 153/79; PULSE 82; RESP 18; TEMP 36.6; O2SAT 95
[2025-05-03] MEDS: oxyBUTYnin CHLORIDE XL 5 MG TAB.ER.24 15 MG PO (21:27)
[2025-05-04 05:40] LABS: Hematocrit 44.1 % (42.0-52.0); Hemoglobin 14.2 g/dL (14.0-18.0); Mean Corpuscular HGB Conc 32.2 g/dl (32-36); Mean Corpuscular Hemoglobin 30.5 pg (26-34); Mean Corpuscular Volume 94.8 fl (80-100); Platelet Count Result 209 k/mm3 (150-375); Red Blood Count 4.65 M/mm3 (4.6-6.20); White Blood Count 7.3 K/mm3 (4.5-10.0)
[2025-05-04 05:59] LABS: Anion Gap 10 mmol/L (4-12); Blood Urea Nitrogen 30 mg/dL (9-20); Calcium 9.3 mg/dL (8.4-10.2); Carbon Dioxide 20 mmol/L (22-30); Chloride 108 mmol/L (98-107); Estimated CRCL calculation 56 ml/min; Estimated Glomerular Filt Rate > 60; Glucose 197 mg/dL (65-110); Potassium 4.3 mmol/L (3.4-5.0); Sodium 138 mmol/L (137-145)
[2025-05-04 06:00] VITALS: BP 158/88; PULSE 83; RESP 18; TEMP 36.2; O2SAT 98
[2025-05-04] MEDS: FLUTICASONE/SALMETEROL 115-21 MCG INHALER 1 PUFF 2 PUFF INHALATION ×2 (07:25→20:23)
[2025-05-04 07:27] VITALS: PULSE 82; RESP 17
[2025-05-04] MEDS: dilTIAZem HCL CD 180 MG CAP.24HR BY MOUTH (09:05)
[2025-05-04] MEDS: MULTIVITAMINS /C LUTEIN (CENTRUM SILVER) TABLET *BKC 1 TAB PO (09:05)
[2025-05-04] MEDS: FINASTERIDE 5 MG TABLET BY MOUTH (09:05)
[2025-05-04] MEDS: FERROUS SULFATE 325 MG TABLET BY MOUTH (09:05)
[2025-05-04] MEDS: ASPIRIN 81 MG ENTERIC TABLET PO (09:05)
--- NOTE | 2025-05-04 09:53 | PM.IMPN2 ---
Assessment and Plan Assessment and Plan (1) Foot fracture: Qualifiers: Encounter type: subsequent encounter Fracture healing: with routine healing Fracture type: closed Laterality: left Qualified Code(s): S92.902D - Unspecified fracture of left foot, subsequent encounter for fracture with routine healing Code(s): S92.909A - Unspecified fracture of unspecified foot, initial encounter for closed fracture Status: Acute Assessment and Plan: Patient was diagnosed with minimally displaced fractures to the left 2nd 3rd and 4th metatarsal bones on 04/03/25. Patient presents today for re-evaluation stating he has been chair bound since his most recent fracture. Left foot x-ray reads healing non to minimally displaced fractures at the anterior process of the calcaneus, the medial cuneiform and at the base of the second-fourth metatarsals. -Orthopedic surgery consult; no surgical intervention -fracture boot and PT/OT -will likely require rehab as he has been nonambulatory -ice and elevation -hydrocodone p.r.n. 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 [place] [facility] use Diabetes mellitus complication status: without complication Qualified Code(s): E11.9 - Type 2 diabetes mellitus without complications Code(s): E11.9 - Type 2 diabetes mellitus without complications Status: Chronic Assessment and Plan: - hypoglycemia protocol - POC blood glucose ACHS - home medication: Metformin - correct regimen ordered: Low-dose sliding scale ------- bs reviewed and stable continue regimen reviewed and staying under 200 (3) Essential hypertension: Code(s): I10 - Essential (primary) hypertension Status: Chronic Assessment and Plan: Continue diltiazem (4) Hyperlipidemia: Qualifiers: Hyperlipidemia type: unspecified Qualified Code(s): E78.5 - Hyperlipidemia, unspecified Code(s): E78.5 - Hyperlipidemia, unspecified Status: Chronic Assessment and Plan: Continue Lipitor (5) Atrial fibrillation: Qualifiers: Atrial fibrillation type: unspecified Qualified Code(s): I48.91 - Unspecified atrial fibrillation Code(s): I48.91 - Unspecified atrial fibrillation Status: Chronic Assessment and Plan: Continue Xarelto Plan Diet: Consistent carb lines/drains: PIV Fluids: NA Code status: DNR Medical Record Review I have reviewed the following patient records and this information was taken into consideration when formulating the assessment and plan.: previous labs Time Spent With Patient Time with patient: 25 - 35 minutes Subjective Date/time seen: 05/04/25 09:53 Interval history: Pt is seen and examined. c/o pain to lt knee -ortho is following- cortisone injection to lt knee yesterday- today, lt knee feels a lot better. care coordination following for placement. Unable to go to Acute rehab, exploring SNF options. He denies any otehr acute issues this am. Drinking and eating ok Review of Systems Review of Systems: All systems reviewed & are unremarkable except as noted in HPI and below Exam Narrative: GENERAL: non-toxic appearing, in no acute distress. HEAD: Normocephalic, atraumatic. EYES: PERRLA. Conjunctivae clear. NOSE: Normal no drainage. THROAT: Pharynx clear, no exudate. NECK: Trachea midline. No adenopathy, no masses. RESPIRATORY: Airway patent, respirations nonlabored. CTA. CARDIOVASCULAR: Irregular rate and rhythm GASTROINTESTINAL: Abdomen is soft and nontender. No organomegaly. Bowel sounds normal in all quadrants. GENITOURINARY: Defer MUSCULOSKELETAL: Moves all extremities. No gross deformities. Pain with manipulation to the left foot. lt knee feels a lot better after cortisone injection SKIN: Warm, dry, normal color. Scattered ecchymosis NEURO: A&O X4. Speech clear PSYCHIATRIC: Normal interaction Const: General: comfortable Objective Data Vital Signs Vital Signs: Vital Signs - 24 hr 05/03/25 14:00 05/03/25 19:56 05/03/25 20:00 Temperature 97.8 F Pulse Rate 73 82 Respiratory Rate 16 18 Blood Pressure 150/68 H Pulse Oximetry 97 98 95 Oxygen Delivery Room Air 05/03/25 20:36 05/04/25 06:00 05/04/25 07:27 Temperature 97.8 F 97.1 F L Pulse Rate 82 83 82 Respiratory Rate 18 18 17 Blood Pressure 153/79 H 158/88 H Pulse Oximetry 95 98 Oxygen Delivery Intake/Output Intake/Output: Intake & Output 05/01/25 05/02/25 05/03/25 05/04/25 23:59 23:59 23:59 23:59 Intake Total 2045 1745 920 50 Output Total 925 1000 1350 800 Balance 1129 203 -768 -586 Meds/Results Medications: Active Medications Generic Name Dose Route Start Last Admin Trade Name Freq PRN Reason Stop Dose Admin Hydrocodone Bitart/Acetaminophen 1 tab 04/30/25 13:48 05/03/25 09:31 Hydrocodone/Acetaminophen (*Crx) 5-325 Mg Tablet PO 1 tab Q6H PRN Administration Pain 4-6 Aspirin 81 mg 05/01/25 09:00 05/04/25 09:05 Aspirin 81 Mg Enteric Tablet PO 81 mg QAM MELISSA Administration Atorvastatin Calcium 40 mg 04/30/25 18:00 05/03/25 17:51 Atorvastatin 40 Mg Tablet PO 40 mg QPM MELISSA Administration Dextrose 12.5 gm 04/30/25 13:50 Dextrose 50% 25 Gm/50 Ml Syringe IV PUSH PRN PRN Hypoglycemia Protocol Diltiazem HCl 180 mg 05/01/25 09:00 05/04/25 09:05 Diltiazem Hcl Cd 180 Mg Cap.24hr BY MOUTH 180 mg QAM MELISSA Administration Ferrous Sulfate 325 mg 05/01/25 09:00 05/04/25 09:05 Ferrous Sulfate 325 Mg Tablet BY MOUTH 325 mg QAM MELISSA Administration Finasteride 5 mg 05/01/25 09:00 05/04/25 09:05 Finasteride 5 Mg Tablet BY MOUTH 5 mg QAM MELISSA Administration Glucagon 1 mg 04/30/25 13:50 Glucagon For Inj 1 Mg Vial IM PRN PRN Hypoglycemia Protocol Glucose 15 gm 04/30/25 13:50 Glucose Oral Gel 15 Gm Of Glucse In 37.5 Gm Tube PO PRN PRN Hypoglycemia Protocol Dextrose 1,000 mls @ 100 mls/hr 04/30/25 13:50 Dextrose 5% 1,000 Ml IVPB PRN PRN Hypoglycemia Protocol Insulin Aspart 2 - 5 units 04/30/25 17:00 05/04/25 08:05 Insulin Aspart (*Bkc) 100 Units/Ml SUB-Q Not Given TIDWM MELISSA Protocol Lidocaine 1 patch 05/03/25 09:00 05/04/25 09:05 Lidocaine 5% Patch TRANSDERM Not Given DAILY MELISSA Multivitamins/Minerals 1 tab 05/01/25 09:00 05/04/25 09:05 Multivitamins /C Lutein (Centrum Silver) Tablet *Bkc PO 1 tab DAILY MELISSA Administration Oxybutynin Chloride 15 mg 04/30/25 21:00 05/03/25 21:27 Oxybutynin Chloride Xl 5 Mg Tab.Er.24 PO 15 mg HS MELISSA Administration Rivaroxaban 20 mg 04/30/25 18:00 05/03/25 17:51 Rivaroxaban 20 Mg Tablet BY MOUTH 20 mg QPM MELISSA Administration Fluticasone/Salmeterol 2 puff 04/30/25 20:00 05/04/25 07:25 Fluticasone/Salmeterol 115-21 Mcg Inhaler 1 Puff INHALATION 2 puff Q12HRT MELISSA Administration Radiology Results: ITS Impressions Chest X-Ray 04/30/25 10:59 IMPRESSION: 1. Mild opacities at the posterior lung bases which could represent atelectasis, mild pulmonary edema, pneumonia or some combination thereof. Foot X-Ray 04/30/25 11:01 IMPRESSION: 1. Healing non to minimally displaced fractures at the anterior process of the calcaneus, the medial cuneiform and at the base of the second-fourth metatarsals. Venous Doppler Study 04/30/25 17:30 Impression: Negative for DVT. Labs Labs: Laboratory Results - last 24 hr 05/03/25 05/03/25 05/03/25 11:29 16:24 20:28 WBC RBC Hgb Hct MCV MCH MCHC RDW Plt Count MPV Sodium Potassium Chloride Carbon Dioxide Anion Gap BUN Creatinine Estim Creat Clear Calc Estimated GFR Glucose POC Capillary Glucose 152 H 165 H 283 H Calcium 05/04/25 05/04/25 05:14 07:48 WBC 7.3 RBC 4.65 Hgb 14.2 Hct 44.1 MCV 94.8 MCH 30.5 MCHC 32.2 RDW 15.3 H Plt Count 209 MPV 9.7 Sodium 138 Potassium 4.3 Chloride 108 H Carbon Dioxide 20 L Anion Gap 10 BUN 30 H Creatinine 1.06 Estim Creat Clear Calc 56 Estimated GFR > 60 Glucose 197 H POC Capillary Glucose 197 H Calcium 9.3 Quality VTE Prophylaxis VTE prophylaxis: pharmacologic ordered
[2025-05-04 14:00] VITALS: BP 154/67; PULSE 82; RESP 16; O2SAT 98
[2025-05-04] MEDS: RIVAROXABAN 20 MG TABLET BY MOUTH (17:06)
[2025-05-04] MEDS: ATORVASTATIN 40 MG TABLET PO (17:07)
[2025-05-04 20:23] VITALS: PULSE 80; RESP 16
[2025-05-04 20:26] VITALS: O2SAT 98
[2025-05-04] MEDS: oxyBUTYnin CHLORIDE XL 5 MG TAB.ER.24 15 MG PO (20:39)
[2025-05-04 20:45] VITALS: BP 145/64; PULSE 84; RESP 17; TEMP 36.5; O2SAT 99
[2025-05-05 04:40] VITALS: BP 145/74; PULSE 68; RESP 16; TEMP 36.1; O2SAT 100
[2025-05-05] MEDS: ASPIRIN 81 MG ENTERIC TABLET PO (10:02)
[2025-05-05] MEDS: FINASTERIDE 5 MG TABLET BY MOUTH (10:02)
[2025-05-05] MEDS: FERROUS SULFATE 325 MG TABLET BY MOUTH (10:02)
[2025-05-05] MEDS: MULTIVITAMINS /C LUTEIN (CENTRUM SILVER) TABLET *BKC 1 TAB PO (10:02)
[2025-05-05] MEDS: LIDOCAINE 5% PATCH 1 PATCH TRANSDERM (10:02)
[2025-05-05] MEDS: dilTIAZem HCL CD 180 MG CAP.24HR BY MOUTH (10:02)
--- NOTE | 2025-05-05 11:57 | PCRCNOTE ---
Window of time for administration has passed. See next scheduled administration.
--- NOTE | 2025-05-05 13:49 | PM.IMPN2 ---
Assessment and Plan Assessment and Plan (1) Foot fracture: Qualifiers: Encounter type: subsequent encounter Fracture healing: with routine healing Fracture type: closed Laterality: left Qualified Code(s): S92.902D - Unspecified fracture of left foot, subsequent encounter for fracture with routine healing Code(s): S92.909A - Unspecified fracture of unspecified foot, initial encounter for closed fracture Status: Acute Assessment and Plan: Patient was diagnosed with minimally displaced fractures to the left 2nd 3rd and 4th metatarsal bones on 04/03/25. Patient presents today for re-evaluation stating he has been chair bound since his most recent fracture. Left foot x-ray reads healing non to minimally displaced fractures at the anterior process of the calcaneus, the medial cuneiform and at the base of the second-fourth metatarsals. -Orthopedic surgery consult; no surgical intervention -fracture boot and PT/OT -will likely require rehab as he has been nonambulatory -ice and elevation -hydrocodone p.r.n. 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 [place] [facility] use Diabetes mellitus complication status: without complication Qualified Code(s): E11.9 - Type 2 diabetes mellitus without complications Code(s): E11.9 - Type 2 diabetes mellitus without complications Status: Chronic Assessment and Plan: - hypoglycemia protocol - POC blood glucose ACHS - home medication: Metformin - correct regimen ordered: Low-dose sliding scale ------- bs reviewed and stable continue regimen reviewed and staying under 200 (3) Essential hypertension: Code(s): I10 - Essential (primary) hypertension Status: Chronic Assessment and Plan: Continue diltiazem (4) Hyperlipidemia: Qualifiers: Hyperlipidemia type: unspecified Qualified Code(s): E78.5 - Hyperlipidemia, unspecified Code(s): E78.5 - Hyperlipidemia, unspecified Status: Chronic Assessment and Plan: Continue Lipitor (5) Atrial fibrillation: Qualifiers: Atrial fibrillation type: unspecified Qualified Code(s): I48.91 - Unspecified atrial fibrillation Code(s): I48.91 - Unspecified atrial fibrillation Status: Chronic Assessment and Plan: Continue Xarelto continue fall risk precautions Plan Diet: Consistent carb lines/drains: PIV Fluids: NA Code status: DNR Medical Record Review I have reviewed the following patient records and this information was taken into consideration when formulating the assessment and plan.: previous labs Time Spent With Patient Time with patient: 25 - 35 minutes Subjective Date/time seen: 05/05/25 13:49 Interval history: Pt is seen and examined. No acute events. Drinking and eating ok. left knee is a lot better. Review of Systems Review of Systems: All systems reviewed & are unremarkable except as noted in HPI and below Exam Narrative: GENERAL: non-toxic appearing, in no acute distress. HEAD: Normocephalic, atraumatic. EYES: PERRLA. Conjunctivae clear. NOSE: Normal no drainage. THROAT: Pharynx clear, no exudate. NECK: Trachea midline. No adenopathy, no masses. RESPIRATORY: Airway patent, respirations nonlabored. CTA. CARDIOVASCULAR: Irregular rate and rhythm GASTROINTESTINAL: Abdomen is soft and nontender. No organomegaly. Bowel sounds normal in all quadrants. GENITOURINARY: Defer MUSCULOSKELETAL: Moves all extremities. No gross deformities. lt knee feels a lot better after cortisone injection SKIN: Warm, dry, normal color. Scattered ecchymosis NEURO: A&O X4. Speech clear PSYCHIATRIC: Normal interaction Const: General: comfortable Objective Data Vital Signs Vital Signs: Vital Signs - 24 hr 05/04/25 14:00 05/04/25 20:23 05/04/25 20:26 Temperature Pulse Rate 82 80 Respiratory Rate 16 16 Blood Pressure 154/67 H Pulse Oximetry 98 98 Oxygen Delivery Fraction of Inspired Oxygen 21 05/04/25 20:45 05/05/25 04:40 05/05/25 10:00 Temperature 97.7 F 97.0 F L Pulse Rate 84 68 Respiratory Rate 17 16 Blood Pressure 145/64 H 145/74 H Pulse Oximetry 99 100 Oxygen Delivery Room Air Fraction of Inspired Oxygen Intake/Output Intake/Output: Intake & Output 05/02/25 05/03/25 05/04/25 05/05/25 23:59 23:59 23:59 23:59 Intake Total 1745 920 530 240 Output Total 1000 1350 800 300 Balance 745 -430 -270 -60 Meds/Results Medications: Active Medications Generic Name Dose Route Start Last Admin Trade Name Freq PRN Reason Stop Dose Admin Hydrocodone Bitart/Acetaminophen 1 tab 04/30/25 13:48 05/03/25 09:31 Hydrocodone/Acetaminophen (*Crx) 5-325 Mg Tablet PO 1 tab Q6H PRN Administration Pain 4-6 Aspirin 81 mg 05/01/25 09:00 05/05/25 10:02 Aspirin 81 Mg Enteric Tablet PO 81 mg QAM MELISSA Administration Atorvastatin Calcium 40 mg 04/30/25 18:00 05/04/25 17:07 Atorvastatin 40 Mg Tablet PO 40 mg QPM MELISSA Administration Dextrose 12.5 gm 04/30/25 13:50 Dextrose 50% 25 Gm/50 Ml Syringe IV PUSH PRN PRN Hypoglycemia Protocol Diltiazem HCl 180 mg 05/01/25 09:00 05/05/25 10:02 Diltiazem Hcl Cd 180 Mg Cap.24hr BY MOUTH 180 mg QAM MELISSA Administration Ferrous Sulfate 325 mg 05/01/25 09:00 05/05/25 10:02 Ferrous Sulfate 325 Mg Tablet BY MOUTH 325 mg QAM MELISSA Administration Finasteride 5 mg 05/01/25 09:00 05/05/25 10:02 Finasteride 5 Mg Tablet BY MOUTH 5 mg QAM MELISSA Administration Glucagon 1 mg 04/30/25 13:50 Glucagon For Inj 1 Mg Vial IM PRN PRN Hypoglycemia Protocol Glucose 15 gm 04/30/25 13:50 Glucose Oral Gel 15 Gm Of Glucse In 37.5 Gm Tube PO PRN PRN Hypoglycemia Protocol Dextrose 1,000 mls @ 100 mls/hr 04/30/25 13:50 Dextrose 5% 1,000 Ml IVPB PRN PRN Hypoglycemia Protocol Insulin Aspart 2 - 5 units 04/30/25 17:00 05/05/25 12:23 Insulin Aspart (*Bkc) 100 Units/Ml SUB-Q Not Given TIDWM MELISSA Protocol Lidocaine 1 patch 05/03/25 09:00 05/05/25 10:02 Lidocaine 5% Patch TRANSDERM 1 patch DAILY MELISSA Administration Multivitamins/Minerals 1 tab 05/01/25 09:00 05/05/25 10:02 Multivitamins /C Lutein (Centrum Silver) Tablet *Bkc PO 1 tab DAILY MELISSA Administration Oxybutynin Chloride 15 mg 04/30/25 21:00 05/04/25 20:39 Oxybutynin Chloride Xl 5 Mg Tab.Er.24 PO 15 mg HS MELISSA Administration Rivaroxaban 20 mg 04/30/25 18:00 05/04/25 17:06 Rivaroxaban 20 Mg Tablet BY MOUTH 20 mg QPM MELISSA Administration Fluticasone/Salmeterol 2 puff 04/30/25 20:00 05/05/25 11:57 Fluticasone/Salmeterol 115-21 Mcg Inhaler 1 Puff INHALATION Not Given Q12HRT [facility] Radiology Results: ITS Impressions Chest X-Ray 04/30/25 10:59 IMPRESSION: 1. Mild opacities at the posterior lung bases which could represent atelectasis, mild pulmonary edema, pneumonia or some combination thereof. Foot X-Ray 04/30/25 11:01 IMPRESSION: 1. Healing non to minimally displaced fractures at the anterior process of the calcaneus, the medial cuneiform and at the base of the second-fourth metatarsals. Venous Doppler Study 04/30/25 17:30 Impression: Negative for DVT. Labs Labs: Laboratory Results - last 24 hr 05/04/25 05/04/25 05/05/25 16:25 20:45 07:57 POC Capillary Glucose 195 H 216 H 156 H 05/05/25 11:30 POC Capillary Glucose 159 H Quality VTE Prophylaxis VTE prophylaxis: pharmacologic ordered
--- NOTE | 2025-05-05 13:49 | PCOTNOTE ---
Attempted to see patient this pm, however patient declined. Pt laying in bed upon entering. Pt stated he has already bathed his upper body, and declined bathing his lower body. Pt reported already completing his exercises today while laying in bed. He stated he hasn't been up yet, however declined to do so at this time. Pt said he's supposed to be discharging to [facility] this afternoon.
[2025-05-05 14:00] VITALS: BP 140/79; PULSE 103; RESP 18; TEMP 36.2; O2SAT 99
[2025-05-05] MEDS: RIVAROXABAN 20 MG TABLET BY MOUTH (18:02)
[2025-05-05] MEDS: ATORVASTATIN 40 MG TABLET PO (18:02)
[2025-05-05 20:05] VITALS: BP 137/67; PULSE 94; RESP 17; TEMP 35.9; O2SAT 99
[2025-05-05 20:50] VITALS: PULSE 76; RESP 18; O2SAT 99
[2025-05-05] MEDS: FLUTICASONE/SALMETEROL 115-21 MCG INHALER 1 PUFF 2 PUFF INHALATION (20:50)
[2025-05-05] MEDS: oxyBUTYnin CHLORIDE XL 5 MG TAB.ER.24 15 MG PO (21:06)
[2025-05-05] MEDS: HYDROcodone/acetaminophen (*CRX) 5-325 MG TABLET 1 TAB PO (21:09)
--- NOTE | 2025-05-05 23:19 | PC.NURSE ---
spoke with Safia Dominique, ok to leave IV out for now, but to inform day RN to f/u with Hospitalist in am to see if they would like another line put in. nothing IV for a couple days.
[2025-05-06 06:41] LABS: Hematocrit 43.2 % (42.0-52.0); Hemoglobin 13.7 g/dL (14.0-18.0); Mean Corpuscular HGB Conc 31.7 g/dl (32-36); Mean Corpuscular Hemoglobin 30.5 pg (26-34); Mean Corpuscular Volume 96.2 fl (80-100); Platelet Count Result 201 k/mm3 (150-375); Red Blood Count 4.49 M/mm3 (4.6-6.20); White Blood Count 9.1 K/mm3 (4.5-10.0)
[2025-05-06 07:04] LABS: Anion Gap 6 mmol/L (4-12); Blood Urea Nitrogen 31 mg/dL (9-20); Calcium 8.6 mg/dL (8.4-10.2); Carbon Dioxide 25 mmol/L (22-30); Chloride 106 mmol/L (98-107); Estimated CRCL calculation 59 ml/min; Estimated Glomerular Filt Rate > 60; Glucose 138 mg/dL (65-110); Potassium 4.2 mmol/L (3.4-5.0); Sodium 137 mmol/L (137-145)
[2025-05-06 07:10] VITALS: BP 145/70; PULSE 61; RESP 18; TEMP 36.2; O2SAT 100
[2025-05-06] MEDS: FLUTICASONE/SALMETEROL 115-21 MCG INHALER 1 PUFF 2 PUFF INHALATION (08:50)
[2025-05-06 08:51] VITALS: PULSE 85; RESP 20; O2SAT 99
[2025-05-06] MEDS: FINASTERIDE 5 MG TABLET BY MOUTH (09:47)
[2025-05-06] MEDS: MULTIVITAMINS /C LUTEIN (CENTRUM SILVER) TABLET *BKC 1 TAB PO (09:47)
[2025-05-06] MEDS: ASPIRIN 81 MG ENTERIC TABLET PO (09:47)
[2025-05-06] MEDS: FERROUS SULFATE 325 MG TABLET BY MOUTH (09:47)
[2025-05-06] MEDS: LIDOCAINE 5% PATCH 1 PATCH TRANSDERM (09:48)
[2025-05-06] MEDS: dilTIAZem HCL CD 180 MG CAP.24HR BY MOUTH (09:48)
--- NOTE | 2025-05-06 10:23 | PCPTNOTE ---
Attempted to see patient for PT, however patient was working with OT.
--- NOTE | 2025-05-06 12:24 | P.PNOP_ITS ---
Progress Note: A&P Assessment and Plan (1) At moderate risk for fall: Code(s): Z91.81 - History of falling Status: Acute (2) Atrial fibrillation: Qualifiers: Atrial fibrillation type: unspecified Qualified Code(s): I48.91 - Unspecified atrial fibrillation Code(s): I48.91 - Unspecified atrial fibrillation Status: Chronic (3) Foot fracture: Qualifiers: Encounter type: subsequent encounter Fracture healing: with routine healing Fracture type: closed Laterality: left Qualified Code(s): S92.902D - Unspecified fracture of left foot, subsequent encounter for fracture with routine healing Code(s): S92.909A - Unspecified fracture of unspecified foot, initial encounter for closed fracture Status: Acute Assessment and Plan: History, exam, radiographs reviewed with the patient. Radiographs from emergency room visit on 04/03 reviewed as well as new radiographs which reveal healing non to minimally displaced fractures at the anterior process of the calcaneus, the medial cuneiform and at the base of the second-fourth metatarsals. The fracture type and injury as well as radiographs discussed with the patient. Operative and nonoperative treatment options reviewed. Recommended non operative treatment. Risk of nonunion, malunion or late displacement discussed. Stiffness, pain and possible dysfunction of the joint discussed. Fracture precautions and activity restrictions reviewed. The patient verbalizes understanding. Patient has been nonambulatory since the time of his injury without any follow- up. He was not discharged with DME. He has not followed with his primary care provider and has not been seen by the locksmith for which he was referred. Patient will require acute rehab at discharge given his deconditioning. Pain control. Ice. Elevation. Will transition to postop shoe for patient's ability to wear a left hinged knee brace. will schedule follow-up as an outpatient. Patient may be discharged pending c are coordination. (4) Degenerative joint disease of knee: Qualifiers: Laterality: left Osteoarthritis type: primary Qualified Code(s): M17.12 - Unilateral primary osteoarthritis, left knee Code(s): M17.9 - Osteoarthritis of knee, unspecified Status: Acute Assessment and Plan: Doppler of the left lower extremity negative for DVT. He continued to complain of left knee pain. Radiographs of the left knee revealed no fracture, dislocation, or effusion left knee, mild tricompartmental degenerative changes, with chondrocalcinosis and evidence of peripheral arterial disease. He continued to complain of left knee pain and therefore underwent a cortisone injection. He reports improvement in pain however he has continued instability. We will transition to a postop shoe and apply a hinged knee brace for stability. (5) Type 2 diabetes mellitus: Qualifiers: Diabetes mellitus complication status: without complication Diabetes mellitus termite treater insulin use: without termite treater use Qualified Code(s): E11.9 - Type 2 diabetes mellitus without complications Code(s): E11.9 - Type 2 diabetes mellitus without complications Status: Chronic Assessment and Plan: Discussed possibility of rise in blood glucose levels with cortisone injection. Patient verbalized understanding of explained risks and wishes to proceed. Counseled on close monitoring of blood glucose readings. Plan Reviewed history, exam, radiographs and current labs with attending MD and covering surgeon, Dr. Martel, who agrees with current plan as indicated above. No further recommendations from Dr. Martel at this time. Subjective Subjective Date/Time Seen: 05/06/25 12:24 Interval history: Orthopedic follow-up for left foot fracture. Overall, patient reports improvement in left foot pain. He continues to c/o left knee instability but his pain has resolved s/p injection. Review of Systems Review of Systems: All systems reviewed & are unremarkable except as noted in HPI and below Exam Const: General: comfortable and no acute distress HENMT: Mouth: Yes moist mucous membranes Eyes: General: appearance normal, both eyes and all related structures Neck: Neck: supple and no JVD Resp: Effort & Inspection: normal respiratory effort GI: Inspection: non-distended GI Palp: Yes Soft to palpation and No Tenderness to palpation present (GI) Neuro: General: gait normal Cognition (Neuro): normal cognition Speech: normal speech Extrem: Left lower extremity: knee Details: abnormal to inspection, tenderness, swelling ( Mild effusion) and abnormal ROM Details: pain with active ROM Details: with extension and with flexion, lower leg Details: tenderness, ankle Details: normal to inspection; no tenderness and foot Details: tenderness Location: of the dorsal foot, abnormal ROM of toe Details: pain with active ROM and pain with passive ROM, edema ( 2+), vascular exam Details: dorsalis pedis pulse present and motor-sensory exam light-touch normal; no ecchymosis, no crepitus and no puncture wound Psych: Mental Status: mental status grossly normal Affect: normal affect Objective Data Vital Signs Vital Signs: Vital Signs - 24 hr 05/05/25 14:00 05/05/25 20:00 05/05/25 20:05 Temperature 36.2 C L 35.9 C L Pulse Rate 103 H 94 Respiratory Rate 18 17 Blood Pressure 140/79 137/67 Pulse Oximetry 99 99 Oxygen Delivery Room Air Fraction of Inspired Oxygen 05/05/25 20:50 05/05/25 20:50 05/06/25 07:10 Temperature 36.2 C L Pulse Rate 76 76 61 Respiratory Rate 18 18 18 Blood Pressure 145/70 H Pulse Oximetry 99 100 Oxygen Delivery Room Air Fraction of Inspired Oxygen 21 05/06/25 08:51 05/06/25 08:51 Temperature Pulse Rate 85 85 Respiratory Rate 20 20 Blood Pressure Pulse Oximetry 99 Oxygen Delivery Room Air Fraction of Inspired Oxygen Intake/Output Intake/Output: Intake & Output 05/03/25 05/04/25 05/05/25 05/06/25 23:59 23:59 23:59 23:59 Intake Total 920 530 720 590 Output Total 0619 686 2999 350 Balance -430 270 -1380 240 Meds/Results Medications: Active Medications Generic Name Dose Route Start Last Admin Trade Name Freq PRN Reason Stop Dose Admin Hydrocodone Bitart/Acetaminophen 1 tab 04/30/25 13:48 05/05/25 21:09 Hydrocodone/Acetaminophen (*Crx) 5-325 Mg Tablet PO 1 tab Q6H PRN Administration Pain 4-6 Aspirin 81 mg 05/01/25 09:00 05/06/25 09:47 Aspirin 81 Mg Enteric Tablet PO 81 mg QAM MELISSA Administration Atorvastatin Calcium 40 mg 04/30/25 18:00 05/05/25 18:02 Atorvastatin 40 Mg Tablet PO 40 mg QPM MELISSA Administration Dextrose 12.5 gm 04/30/25 13:50 Dextrose 50% 25 Gm/50 Ml Syringe IV PUSH PRN PRN Hypoglycemia Protocol Diltiazem HCl 180 mg 05/01/25 09:00 05/06/25 09:48 Diltiazem Hcl Cd 180 Mg Cap.24hr BY MOUTH 180 mg QAM MELISSA Administration Ferrous Sulfate 325 mg 05/01/25 09:00 05/06/25 09:47 Ferrous Sulfate 325 Mg Tablet BY MOUTH 325 mg QAM MELISSA Administration Finasteride 5 mg 05/01/25 09:00 05/06/25 09:47 Finasteride 5 Mg Tablet BY MOUTH 5 mg QAM MELISSA Administration Glucagon 1 mg 04/30/25 13:50 Glucagon For Inj 1 Mg Vial IM PRN PRN Hypoglycemia Protocol Glucose 15 gm 04/30/25 13:50 Glucose Oral Gel 15 Gm Of Glucse In 37.5 Gm Tube PO PRN PRN Hypoglycemia Protocol Dextrose 1,000 mls @ 100 mls/hr 04/30/25 13:50 Dextrose 5% 1,000 Ml IVPB PRN PRN Hypoglycemia Protocol Insulin Aspart 2 - 5 units 04/30/25 17:00 05/06/25 12:13 Insulin Aspart (*Bkc) 100 Units/Ml SUB-Q Not Given TIDWM MELISSA Protocol Lidocaine 1 patch 05/03/25 09:00 05/06/25 09:48 Lidocaine 5% Patch TRANSDERM 1 patch DAILY MELISSA Administration Multivitamins/Minerals 1 tab 05/01/25 09:00 05/06/25 09:47 Multivitamins /C Lutein (Centrum Silver) Tablet *Bkc PO 1 tab DAILY MELISSA Administration Oxybutynin Chloride 15 mg 04/30/25 21:00 05/05/25 21:06 Oxybutynin Chloride Xl 5 Mg Tab.Er.24 PO 15 mg HS MELISSA Administration Rivaroxaban 20 mg 04/30/25 18:00 05/05/25 18:02 Rivaroxaban 20 Mg Tablet BY MOUTH 20 mg QPM MELISSA Administration Fluticasone/Salmeterol 2 puff 04/30/25 20:00 05/06/25 08:50 Fluticasone/Salmeterol 115-21 Mcg Inhaler 1 Puff INHALATION 2 puff Q12HRT MELISSA Administration Radiology Results: ITS Impressions Chest X-Ray 04/30/25 10:59 IMPRESSION: 1. Mild opacities at the posterior lung bases which could represent atelectasis, mild pulmonary edema, pneumonia or some combination thereof. Foot X-Ray 04/30/25 11:01 IMPRESSION: 1. Healing non to minimally displaced fractures at the anterior process of the calcaneus, the medial cuneiform and at the base of the second-fourth metatarsals. Venous Doppler Study 04/30/25 17:30 Impression: Negative for DVT. Labs Labs: Laboratory Results - last 24 hr 05/05/25 05/05/25 05/06/25 16:46 20:11 06:29 WBC 9.1 RBC 4.49 L Hgb 13.7 L Hct 43.2 MCV 96.2 MCH 30.5 MCHC 31.7 L RDW 15.7 H Plt Count 201 MPV 9.4 Sodium 137 Potassium 4.2 Chloride 106 Carbon Dioxide 25 Anion Gap 6 BUN 31 H Creatinine 1.01 Estim Creat Clear Calc 59 Estimated GFR > 60 Glucose 138 H POC Capillary Glucose 143 H 273 H Calcium 8.6 05/06/25 05/06/25 07:30 11:20 WBC RBC Hgb Hct MCV MCH MCHC RDW Plt Count MPV Sodium Potassium Chloride Carbon Dioxide Anion Gap BUN Creatinine Estim Creat Clear Calc Estimated GFR Glucose POC Capillary Glucose 137 H 150 H Calcium
--- NOTE | 2025-05-06 12:41 | P.DS_ITS ---
DS: Admitting Diagnosis Discharge Date 05/06 Admitting Diagnosis fall DS: Summary Hospital Course Hospital Course: 84-year-old male with past medical history of diabetes, frequent falls, CKD, ANEUDY, AFib, hypertension, hyperlipidemia presents to the ED on 04/30/2025 with complaints of generalized weakness. Patient was diagnosed with minimally displaced fractures to the left 2nd 3rd and 4th metatarsal bones on 04/03/25. This was nonoperable and patient was sent home with a post op shoe. Patient was referred to Podiatry for follow-up but has not gone to an appointment because he has stairs in his apartment. He has reportedly been attempting to work with home health care but has been getting progressively weaker. He was also noted to have a healing 5th proximal phalanx fracture which was originally noted on 02/05 in the ED as well. Patient presents today for re-evaluation stating he has been chair bound since his most recent fracture. Patient also complains of burning with urination. Initial vital signs 149/80, HR 78, respirations 15, afebrile and 98% on room air. Mild leukocytosis with WBC 10.4, BUN 27, UA without signs of infection. EKG with AFib with rate 66 Chest x-ray mild opacities at posterior lung bases, representing atelectasis, mild pulmonary edema, pneumonia or possible combination. Left foot x-ray reads healing non to minimally displaced fractures at the anterior process of the calcaneus, the medial cuneiform and at the base of the second-fourth metatarsals. LLE doppler negative for DVT. Ortho did cortisone injection to lt knee which helped a lot. Care coordination was following to help with placeemnt and today he is cleared per his insurance to go to [facility]. Status at Discharge Functional status at discharge: uses cane/walker Overall status at discharge: patient is progressing back to baseline Time Spent with Patient Time attestation: Total time spent providing and/or coordinating discharge services: Time spent: Greater than 30 minutes Exam Const: General: comfortable Resp: Effort & Inspection: normal respiratory effort DS: Data Data Completed and Pending Labs on day of discharge: Labs from last 24 hours 05/06/25 05/06/25 05/06/25 11:20 07:30 06:29 WBC 9.1 RBC 4.49 L Hgb 13.7 L Hct 43.2 MCV 96.2 MCH 30.5 MCHC 31.7 L RDW 15.7 H Plt Count 201 MPV 9.4 Sodium 137 Potassium 4.2 Chloride 106 Carbon Dioxide 25 Anion Gap 6 BUN 31 H Creatinine 1.01 Estim Creat Clear Calc 59 Estimated GFR > 60 Glucose 138 H POC Capillary Glucose 150 H 137 H Calcium 8.6 05/05/25 05/05/25 20:11 16:46 WBC RBC Hgb Hct MCV MCH MCHC RDW Plt Count MPV Sodium Potassium Chloride Carbon Dioxide Anion Gap BUN Creatinine Estim Creat Clear Calc Estimated GFR Glucose POC Capillary Glucose 273 H 143 H Calcium Discharge Plan Discharge Attending physician on discharge: Az Madrigal Consulting providers: aMximilian Martel Discharging Clinician: Griselda Figueroa Patient Disposition: SNF Activity: september shower Diet: heart healthy Discharge Instructions: Orthopedic Recommendations Dr. Maximilian Martel/Hallie Monk NP [phone] * Continue fracture boot. Weight bearing as tolerated. * Remove to elevate/ice foot. * PT/OT for knee pain and ambulation. * Follow up in 2 weeks for repeat radiographs. * Contact our office with questions/concerns at [phone] Patient Language: Cambodian Stand Alone Forms: General Discharge Information Follow-up/Referrals: Maximilian Martel MD [Physician, Orthopedics] - 05/30/25 10:45 am Discharge Medications: Continued Adults Multivitamin 18 mg iron-400 mcg-25 mcg Tablet 1 tablet PO DAILY atorvastatin 40 mg tablet 40 mg PO QPM aspirin 81 mg Tablet,Delayed Release (Dr/Ec) 81 mg PO QAM 30 Days Qty: 30 2RF ondansetron 4 mg tablet,disintegrating 4 mg PO Q8H PRN (Reason: nausea and vomiting) Qty: 14 0RF hydrocodone-acetaminophen 5-325 mg tablet 1 tablet PO Q6H PRN (Reason: pain) Qty: 10 0RF (DME) lancets [Lancets, Super Thin] Misc See Rx Instructions .ROUTE .MEDSUPPLY Qty: 100 2RF Rx Instructions: Use to check blood sugar daily (DME) Contour Next Test Strips Strip See Rx Instructions .ROUTE .MEDSUPPLY Qty: 100 0RF Rx Instructions: Use to test blood sugar once daily finasteride 5 mg tablet See Rx Instructions .ROUTE .COMPLEX Qty: 90 1RF Dose Instruction: TAKE 1 TABLET BY MOUTH EVERY DAY Rx Instructions: TAKE 1 TABLET BY MOUTH EVERY DAY metformin 1,000 mg tablet 1,000 mg PO DAILY Qty: 180 1RF fluticasone propion-salmeterol [Wixela Inhub] 250-50 mcg/dose blister with device See Rx Instructions .ROUTE .COMPLEX Qty: 180 1RF Dose Instruction: INHALE 1 PUFF BY MOUTH TWICE A DAY Rx Instructions: INHALE 1 PUFF BY MOUTH TWICE A DAY diltiazem HCl 180 mg capsule,extended release 24hr See Rx Instructions .ROUTE .COMPLEX Qty: 90 2RF Dose Instruction: TAKE 1 CAPSULE BY MOUTH EVERY DAY Rx Instructions: TAKE 1 CAPSULE BY MOUTH EVERY DAY oxybutynin chloride 15 mg tablet extended release 24hr 15 mg PO HS Qty: 90 1RF ferrous sulfate 325 mg (65 mg iron) tablet See Rx Instructions .ROUTE .COMPLEX Qty: 90 1RF Dose Instruction: TAKE 1 TABLET BY MOUTH EVERY DAY Rx Instructions: TAKE 1 TABLET BY MOUTH EVERY DAY Xarelto 20 mg tablet See Rx Instructions .ROUTE .COMPLEX Qty: 90 2RF Dose Instruction: TAKE 1 TABLET BY MOUTH EVERY EVENING Rx Instructions: TAKE 1 TABLET BY MOUTH EVERY EVENING Date of admission: 04/30/25 12:13 Primary Care Provider: Patt Castellon Admitting Provider: Carlos Sheridan Attending physician on admission: Carlos Sheridan Condition: Stable Hospitalist MIPS Heart Failure (Exclusion) Patient has history of Heart Transplant or Left Ventricular Assistive Device?: No IF YES, STOP HERE Heart Failure (Qualifier) Patient has current or prior documentation of LVEF less than or equal to 40%, or mod/servere depressed LVSF?: No IF NO, STOP HERE
[2025-05-06 13:51] VITALS: BP 123/78; PULSE 86; RESP 18; TEMP 36.1; O2SAT 100
[2025-05-06] MEDS: ATORVASTATIN 40 MG TABLET PO (17:23)
[2025-05-06] MEDS: RIVAROXABAN 20 MG TABLET BY MOUTH (17:23)
== END 2025-05-06 17:43 ==
LOC: ANHED 11:09 → ANH3MEDSUR 14:47
PROVIDERS: Nurse Practitioner; Nurse Practitioner Adult Health; Admitting Provider General Practice; Emergency Provider Emergency Medicine; PCP Nurse Practitioner Family; Visit Provider Internal Medicine
DX: S92.325D Nondisplaced fracture of second metatarsal bone, left foot, subsequent encounter for fracture with routine healing (principal); S92.335D Nondisplaced fracture of third metatarsal bone, left foot, subsequent encounter for fracture with routine healing; S92.345D Nondisplaced fracture of fourth metatarsal bone, left foot, subsequent encounter for fracture with routine healing; M79.662 Pain in left lower leg; M25.562 Pain in left knee; E11.22 Type 2 diabetes mellitus with diabetic chronic kidney disease; N18.30 Chronic kidney disease, stage 3 unspecified; I12.9 Hypertensive chronic kidney disease with stage 1 through stage 4 chronic kidney disease, or unspecified chronic kidney disease; E11.42 Type 2 diabetes mellitus with diabetic polyneuropathy; I48.91 Unspecified atrial fibrillation; M17.12 Unilateral primary osteoarthritis, left knee; E78.2 Mixed hyperlipidemia; E78.5 Hyperlipidemia, unspecified; G47.33 Obstructive sleep apnea (adult) (pediatric); I25.10 Atherosclerotic heart disease of native coronary artery without angina pectoris; I63.9 Cerebral infarction, unspecified; D18.02 Hemangioma of intracranial structures; J44.89 Other specified chronic obstructive pulmonary disease; R29.6 Repeated falls; Z91.198 Patient's noncompliance with other medical treatment and regimen for other reason; Z91.81 History of falling; Z79.01 Long term (current) use of anticoagulants; Z79.82 Long term (current) use of aspirin; Z79.84 Long term (current) use of oral hypoglycemic drugs; Z79.51 Long term (current) use of inhaled steroids; Z86.79 Personal history of other diseases of the circulatory system; Z87.891 Personal history of nicotine dependence; Z98.1 Arthrodesis status; Z98.49 Cataract extraction status, unspecified eye; Z96.1 Presence of intraocular lens; Z95.5 Presence of coronary angioplasty implant and graft
CPT/HCPCS: 20610; 36415; 71046; 73562; 73630; 80048; 80053; 81001; 82948; 85025; 85027; 93005; 93971; 94640; 97110; 97162; 97166; 97530; 97535; 99285; A9270; G0378; J1815; L2116